=== PATIENT | female | born 1965 | race Caucasian/White ===

== ENCOUNTER → 2018-03-28 01:59 | Outpatient (CLI) | payer OTHER, SELFPAY ==
--- NOTE | 2018-03-28 11:32 | DI.REPORT_ITS ---
SYMPTOM/DIAGNOSIS: LLQ ABD PAIN, ? CONSTIPATION, ASSESS AMOUNT OF STOOL IN COLON ABDOMEN: Two views were obtained. No gross free intraperitoneal air is seen on these supine films. Right hip prosthesis noted in position. Bowel gas pattern is within normal limits. There is a moderate amount of fecal material in ascending colon, little stool in descending or sigmoid colon. CONCLUSION: Negative examination of the abdomen.
== END ==
PROVIDERS: PCP Family Medicine; Visit Provider Family Medicine
DX: R10.32 Left lower quadrant pain (principal); K59.00 Constipation, unspecified
CPT/HCPCS: 74018

== ENCOUNTER 2018-04-09 11:32 | Outpatient (CLI) | payer OTHER, SELFPAY ==
--- NOTE | 2018-04-09 15:59 | DI.RAD_ITS ---
SYMPTOM/DIAGNOSIS: FOOT PAIN, M79.671 RIGHT FOOT: Hardware is seen in the malleoli. There are degenerative changes of the talonavicular joint which are severe. No significant degenerative changes are seen in the foot. There is no evidence of fracture or signs of a stress fracture. IMPRESSION: Degenerative changes of the ankle. No acute abnormality is seen in the foot.
== END 2018-04-09 11:52 ==
PROVIDERS: PCP Family Medicine; Visit Provider Family Medicine
DX: M79.671 Pain in right foot (principal); M19.071 Primary osteoarthritis, right ankle and foot
CPT/HCPCS: 73630

== ENCOUNTER 2018-04-09 18:14 | Outpatient (REF) | payer OTHER, SELFPAY ==
[2018-04-09 20:39] LABS: Uric Acid 2.7 mg/dL (2.6-6.0)
[2018-04-09 20:59] LABS: ESR 17 MM/HR (0-30)
== END 2018-04-09 18:34 ==
LOC: NCHCN 18:14
PROVIDERS: PCP Family Medicine; Visit Provider Family Medicine
DX: M79.671 Pain in right foot (principal)
CPT/HCPCS: 85652; 84550

== ENCOUNTER 2018-05-13 11:34 | Outpatient (CLI) | payer OTHER, SELFPAY ==
--- NOTE | 2018-05-13 08:19 | DI.RAD_ITS ---
SYMPTOMS/DIAGNOSIS: PAIN IN RIGHT FOOT, M79.671 RIGHT FOOT: Four views. There is a healing nondisplaced fracture involving the proximal metaphysis of the right 2nd metatarsal. No other acute fractures or dislocations are seen. Side plate and screws are seen in the distal tibia and fibula from old injury. There are moderately severe degenerative changes noted of the right ankle. No radiopaque foreign bodies are seen in the soft tissues. IMPRESSION: Healing fracture involving the proximal metaphysis of the right 2nd metatarsal.
== END 2018-05-13 11:54 ==
PROVIDERS: PCP Family Medicine; Visit Provider Podiatrist Foot & Ankle Surgery
DX: M79.671 Pain in right foot (principal); S92.324D Nondisplaced fracture of second metatarsal bone, right foot, subsequent encounter for fracture with routine healing; M19.071 Primary osteoarthritis, right ankle and foot
CPT/HCPCS: 73630

== ENCOUNTER 2018-06-23 16:35 | Outpatient (REF) | payer OTHER, SELFPAY ==
[2018-06-23 19:59] LABS: COMMENT (LAB VIEW ONLY) 129.64 mg/dL; Microalb ug/mg Crea 1.9 ug/mg Cr
== END 2018-06-23 16:55 ==
LOC: NCHCN 16:35
PROVIDERS: PCP Family Medicine; Visit Provider Family Medicine
DX: I10 Essential (primary) hypertension (principal); E11.9 Type 2 diabetes mellitus without complications; Z79.4 Long term (current) use of insulin
CPT/HCPCS: 82043; 82570

== ENCOUNTER 2018-09-16 09:39 | Outpatient (REF) | payer OTHER, SELFPAY ==
[2018-09-16 12:28] LABS: HGB 12.7 g/dL (12.0-15.5); Mean Corp. HGB Concentration 32.6 g/dL (32.0-36.0); Mean Corpuscular Hemoglobin 29.4 pg (27.0-33.0); Mean Corpuscular Volume 90.3 fL (80-95); Mean Platelet Volume 10.6 fL (8.0-11.0); Platelet Count 183 x1000/uL (130-400); RBC 4.32 m/cumm (4.00-5.20); RBC Distribution Width 12.7 % (11.7-14.6); White Blood Cell Count 4.63 k/cumm (4.4-10.8)
[2018-09-16 12:43] LABS: Anion Gap 8.1 mmol/L (3-11); BUN 14 mg/dL (7-18); CO2 28.9 mmol/L (21.0-32.0); CREATININE 0.89 mg/dL (0.55-1.02); Calcium 9.2 mg/dL (8.5-10.1); Chloride 104 mmol/L (98-107); Glucose 180 mg/dL (70-100); Potassium 4.1 mmol/L (3.5-5.1); Sodium 141 mmol/L (136-145)
[2018-09-16 12:47] LABS: Hemoglobin A1C 7.8 % (4.5-6.2)
== END 2018-09-16 09:59 ==
LOC: NCHCN 09:39
PROVIDERS: PCP Family Medicine; Visit Provider Family Medicine
DX: I10 Essential (primary) hypertension (principal); E11.9 Type 2 diabetes mellitus without complications; Z79.4 Long term (current) use of insulin
CPT/HCPCS: 80048; 85027; 83036

== ENCOUNTER 2018-10-09 00:30 | Outpatient (CLI) | payer OTHER, SELFPAY ==
--- NOTE | 2018-10-09 16:15 | DI.MAMMO_ITS ---
SYMPTOM/DIAGNOSIS: SCREENING, Z12.31 MAMMOGRAMS: Mammograms were interpreted according to the usual protocol including computer analysis with CAD system, tomosynthesis and C view imaging. Comparison with prior examinations. Breast density C. No suspicious masses or microcalcifications are seen. There is no definite evidence of malignancy. IMPRESSION: Negative mammogram. Routine screening is recommended. Category I. MQSA ASSESSMENT OF FINDINGS: Negative. Category 1. Patient will receive a letter notifying them of these results. Bi-RADS category C. The breasts are heterogeneously dense, which may obscure small masses.
== END 2018-10-09 00:50 ==
PROVIDERS: PCP Family Medicine; Visit Provider Nurse Practitioner Family
DX: Z12.31 Encounter for screening mammogram for malignant neoplasm of breast (principal)
CPT/HCPCS: 77063; 77067

== ENCOUNTER 2019-06-22 14:30 | Outpatient (CLI) | payer OTHER, SELFPAY ==
--- NOTE | 2019-06-22 14:22 | DI.RAD_ITS ---
EXAM: XR HAND RT COMPLETE INDICATION: R hand pain. COMPARISON: No exams were available for comparison TECHNIQUE: 2D digital imaging was performed. FINDINGS: No fracture or dislocation is seen. There are no significant degenerative changes. There are no bon y erosions. IMPRESSION: Negative right hand.
--- NOTE | 2019-06-22 14:22 | DI.RAD_ITS ---
EXAM: XR HAND LT COMPLETE INDICATION: l hand pain. COMPARISON: XR HAND RT COMPLETE from 06/22/2019 TECHNIQUE: 2D digital imaging was performed. FINDINGS: The bones are normally mineralized. There are no significant degenerative changes. No bony erosions are seen. IMPRESSION: Negative left hand.
--- NOTE | 2019-06-22 14:22 | DI.RAD_ITS ---
EXAM: XR ANKLE LT 2V INDICATION: eval L ankle pain. COMPARISON: XR ANKLE RT 2V from 06/22/2019 TECHNIQUE: 2D digital imaging was performed. FINDINGS: The ankle joint space is well maintained. No talar dome defect or significant degenerative changes a re seen. IMPRESSION: Negative left ankle.
--- NOTE | 2019-06-22 14:22 | DI.RAD_ITS ---
EXAM: XR ANKLE RT 2V INDICATION: eval R ankle pain. COMPARISON: RIGHT ANKLE COMPLETE from 01/26/2010 TECHNIQUE: 2D digital imaging was performed. FINDINGS: Hardware is seen in both malleoli. Hardware appears unchanged. There is severe narrowing of the tib iotalar and fibular talar joint spaces. There are subchondral cysts and sclerosis on both sides of th e joint. No focal talar dome defects are seen. IMPRESSION: Severe degenerative changes of the ankle joint.
== END 2019-06-22 14:50 ==
PROVIDERS: PCP Family Medicine; Visit Provider Student in an Organized Health Care Education/Training Program
DX: M79.641 Pain in right hand (principal); M79.642 Pain in left hand; M25.571 Pain in right ankle and joints of right foot; M25.572 Pain in left ankle and joints of left foot; M19.071 Primary osteoarthritis, right ankle and foot
CPT/HCPCS: 73130; 73600

== ENCOUNTER 2019-06-22 15:02 | Outpatient (CLI) | payer OTHER, SELFPAY ==
[2019-06-22 16:28] LABS: ESR 13 mm/hr (0-30)
[2019-06-23 12:39] LABS: Rheumatoid Factor <7.5 IU/mL (<12.5)
[2019-06-23 14:34] LABS: ANA Interpretation Negative (Negative)
== END 2019-06-22 15:22 ==
PROVIDERS: PCP Family Medicine; Visit Provider Student in an Organized Health Care Education/Training Program
DX: M79.641 Pain in right hand (principal); M79.642 Pain in left hand; M25.572 Pain in left ankle and joints of left foot; M19.071 Primary osteoarthritis, right ankle and foot
CPT/HCPCS: 36415; 85652; 86038; 86140; 86431

== ENCOUNTER 2019-07-31 11:39 | Outpatient (REF) | payer OTHER, SELFPAY ==
[2019-08-03 12:02] LABS: COMMENT (LAB VIEW ONLY) 61.61 mg/dL; Microalb ug/mg Crea 4.9 ug/mg Cr
== END 2019-07-31 11:59 ==
LOC: NCHCN 11:39
PROVIDERS: PCP Family Medicine; Visit Provider Family Medicine
DX: E11.9 Type 2 diabetes mellitus without complications (principal); Z79.4 Long term (current) use of insulin
CPT/HCPCS: 82043; 82570

== ENCOUNTER 2019-08-10 09:48 | Outpatient (CLI) | payer OTHER, SELFPAY ==
--- NOTE | 2019-08-10 10:00 | DIABASSESS_ITS ---
DESCRIPTION/ASSESSMENT: Chandrika Casanova presents for diabetes self management with 10 days of blood sugars taken at various times. She states she has blood sugars that are all over the place. Chandrika states she guesses how much Novolog to take at each meal with the idea of 1 unit for 12 grams carbohydrate and the same for insulin correction. Takes 46- 50 units Levemir depending on blood sugar. Takes 12-30 units Novolog per meal. Blood sugars are primarily over 215 or under 115 with 4 hypoglycemic episodes out of 16 bloods sugars. States she does have symptoms of hypoglycemia close to 70mg/dl. She gaspar a high carb breakfast of oatmeal, berries, 2 toast with butter. She may have flatbread with meat salad for lunch, yogurt or lean cuisine or mac and cheese. She has pizza or spaghetting with meat for supper. Snacks on crackers between meals; has an apple in the evening. INTERVENTION: Chandrika is here to look at her insulin dosing and to prevent hypoglycemia. MEDICATION: Discussed changing basal insulin and suggested that high blood sugars are better managed with fast acting insulin with a short lifespan. Assessed insulin:carb ratio at 1 unit covers 5grams and 1 unit corrects 20mg/dl above 140mg/dl. She is given this scale on her food guide. SHe voices understanding and is able to return demonstration for calculating her insulin dose for a meal. Reviewed carbohydrate sources, portions to aid in counting carbohydrate grams for dosing mealtime insulin. MONITORING: Suggest monitoring before each meal and bedtime for the next week; record food eaten and insulin dose given. ACTION PLAN: Chandrika will dose insulin at 1 unit for 5 grams; 1 unit corrects 20mg/dl above 140 mg/dl of Novolog She will take the same amount of Levemir every night She will call if this is not working well for her and will return in 1 week to review her blood sugars and adjust as needed. Individual DSME/T _1___ units billed TIME IN: 1000 OUT: 1040 No DM group education series being offered at this time.
== END 2019-08-10 10:08 ==
PROVIDERS: PCP Family Medicine; Visit Provider Dietitian, Registered
DX: E11.9 Type 2 diabetes mellitus without complications (principal); Z79.4 Long term (current) use of insulin; Z71.3 Dietary counseling and surveillance
CPT/HCPCS: G0108

== ENCOUNTER 2019-08-17 03:04 | Outpatient (CLI) | payer OTHER, SELFPAY ==
--- NOTE | 2019-08-17 08:30 | DIABASSESS_ITS ---
DESCRIPTION/ASSESSMENT: Chandrika presents for follow up for diabetes self management focused on insulin management. Chandrika had been varying Lantus and did continue this although it was suggested she use one night insuli dose. She was guessing how much Novolog to take. She came in attempting to calculate 1 unit to cover 5 grams carbohydrate and 1 unit to cover 20mg/dl above 140mg/dl. She was able to calculate this easily. She has recorded her food, blood sugar and insulin dose for each meal. Fasting blood sugar 76, 129, 167, 202, 207, 272, 291. Lunch blood sugars 79, 109, 139, 148 218. Supper blood sugars 45, 84, 95, 127, 270, 358. She did not take insulin at 79mg/dl resulting in a 358 by supper. She notices 1T honey in tea caused significant increase 76 to 218 with same breakfast previous day 129-79. Hypoglycemia occurred on afternoon she did not test blood sugar prior to administering 21u for lunch. She does eat out frequently and does not count carbohydrates for those meals. INTERVENTION: Reviewed blood sugars iwth her. It appears she is highly sensitive to carbohydrate, however the insulin dosing, when counting carbohydrates accurately and testing blood sugars prior to meals is working reasonably well. At this point she will take 50units lantus nightly and we will continue to watch blood sugars for patterns. ACTION PLAN: Take 50u Lantus every night; continue current mealtime insulin dosing. 25 minutes face to face 0 dsme billed. Individual DSME/T __0__ units billed TIME IN: 850 OUT: 915 No DM group education series being offered at this time. 08/19/19 TC to Chandrika this morning. Blood sugars 106-275. 242 last night before bed. Admits to having cookies iwthout taking insulin. She reports a cold for which she is taking antibiotics. Suggest correcting hyperglycemia at bedtime with insulin correction starting at 200mg/dl as it is likely eating more tthan expected for the insulin administered for the meal. She will call with any hypoglycemic episodes. We will be in touch in 1 week after antibiotic administration.
== END 2019-08-17 03:24 ==
PROVIDERS: PCP Family Medicine; Visit Provider Dietitian, Registered
DX: E11.9 Type 2 diabetes mellitus without complications (principal); Z79.4 Long term (current) use of insulin; Z71.3 Dietary counseling and surveillance

== ENCOUNTER 2019-10-13 08:04 | Outpatient (REF) | payer OTHER, SELFPAY ==
[2019-10-13 12:32] LABS: Hemoglobin A1C 7.3 % (3.8-5.6)
[2019-10-13 12:35] LABS: Anion Gap 7.4 mmol/L (3-11); BUN 21 mg/dL (7-18); CO2 28.6 mmol/L (21.0-32.0); Calcium 8.6 mg/dL (8.5-10.1); Calculated LDL 64 mg/dL (<100); Chloride 104 mmol/L (98-107); Cholesterol 122 mg/dL (<200); Glucose 190 mg/dL (74-106); HDL Cholesterol 51 mg/dL (40-60); Potassium 3.9 mmol/L (3.5-5.1); Sodium 140 mmol/L (136-145); Triglyceride 37 mg/dL (<150)
[2019-10-13 12:36] LABS: HCT 38.5 % (36.0-46.0); HGB 12.7 g/dL (12.0-15.5); Mean Corpuscular Hemoglobin 29.1 pg (27.0-33.0); Mean Corpuscular Volume 88.1 fL (80-95); Mean Platelet Volume 10.7 fL (8.0-11.0); Platelet Count 189 x1000/uL (130-400); RBC 4.37 m/cumm (4.00-5.20); RBC Distribution Width 12.8 % (11.7-14.6); White Blood Cell Count 4.21 k/cumm (4.4-10.8)
== END 2019-10-13 08:24 ==
LOC: NCHCN 08:04
PROVIDERS: PCP Family Medicine; Visit Provider Family Medicine
DX: E11.9 Type 2 diabetes mellitus without complications (principal); Z79.4 Long term (current) use of insulin; E78.5 Hyperlipidemia, unspecified; I10 Essential (primary) hypertension
CPT/HCPCS: 80048; 80061; 85027; 83036

== ENCOUNTER 2019-12-21 01:11 | Outpatient (CLI) | payer OTHER, SELFPAY ==
--- NOTE | 2019-12-21 16:00 | DI.MAMMO_ITS ---
EXAM: MG MAMMO SCREENING CLINICAL HISTORY: screening,Z12.39 TECHNIQUE: Bilateral full field digital CC and MLO mammographic images were obtained with 3D tomosyn thesis and utilizing computer aided detection (CAD). COMPARISON: Available for comparison. FINDINGS: Masses/Architectural Distortion: None seen. Microcalcifications: No suspicious pleomorphic-type are seen. Skin Thickening/Nipple Retraction: None. IMPRESSION: 1. No significant interval change with no specific features of malignancy noted. 2. Unless there is more urgent need, screening mammography is recommended, as per [employer] guidelines. BI-RADS Category 1 - Negative Breast Density - Category C - Heterogeneously dense The mammogram demonstrates the patient's breast tissue is dense. Dense breast tissue is very common a nd is not abnormal but dense breast tissue can make it harder to find cancer on a mammogram. Also, de nse breast tissue may increase their breast cancer risk. This information about the result of the [facility] mogram report was provided to the patient to raise their awareness. Use this report when you speak wi th the patient about their risks for breast cancer, which includes their family history. At that time , you may recommend for more screening tests (Ultrasound or MRI) as they might be useful based on the ir risk. A negative radiographic report should not delay biopsy if a dominant or clinically suspicious mass is present. Up to ten percent of cancers are not identified on mammography. A negative report may reinforce clinical impression. Adenosis and dense breasts may obscure an underlying neoplasm. False positive reports average 6 to 10%. Patient will receive a letter notifying them of these results.
== END 2019-12-21 01:31 ==
PROVIDERS: PCP Family Medicine; Visit Provider Nurse Practitioner Family
DX: Z12.31 Encounter for screening mammogram for malignant neoplasm of breast (principal)
CPT/HCPCS: 77063; 77067

== ENCOUNTER 2020-02-16 10:25 | Outpatient (CLI) | payer OTHER, SELFPAY ==
--- NOTE | 2020-02-16 06:00 | DI.RAD_ITS ---
EXAM: XR PAIN CLINIC SACRIOILIAC 2V CLINICAL HISTORY: Sacroiliac Joint Dysfunction TECHNIQUE: 2D and realtime digital imaging was performed. Fluoroscopy was provided in the OR COMPARISON: No exams were available for comparison FINDINGS: C-arm fluoroscopy was utilized by Dr. Potter during bilateral SI joint injection. Hard copies show bilate ral SI joint injection. Fluoro time 27.5 seconds. IMPRESSION: RADIATION DOSE DELIVERED: Total DLP
[2020-02-16 10:32] VITALS: BP 133/81; PULSE 87; RESP 18; TEMP 35.9; O2SAT 97
[2020-02-16 11:21] VITALS: BP 126/77; PULSE 91; O2SAT 99
[2020-02-16] MEDS: methylPREDNISolone ACETATE 80 MG/ML VIAL IJ (11:28)
[2020-02-16] MEDS: Omnipaque 240 MG/ML 50 ML BTL IJ (11:29)
[2020-02-16] MEDS: Bupivacaine 0.5% Pres-Free 10 ML VIAL IJ (11:30)
--- NOTE | 2020-03-15 09:46 | PDOC.PAIN_ITS ---
Pain Clinic Procedure Note Procedure Note Procedure Note: INTRA-ARTICULAR SI JOINT INJECTION Date of procedure 02/16/2020 CHAYITO MERAZ has been referred to the [facility] for intra- articular SI joint injection. COMMENTS: disorder of sacrum Patient was interviewed and the medical record reviewed. There were no medical, pharmacologic, radiographic or other structural contraindications to attempting fluoroscopically guided intra-articular SI joint injection. Risks and expected side effects as well as potential benefit of the procedure were reviewed and voiced concerns addressed. The printed consent form was signed and witnessed. Standard time-out procedure was performed. Patient was placed in the prone position on the fluoroscopy table and automated blood pressure cuff and pulse oximeter applied. The skin entry point for approaching bilateral SI joints was identified under the most advantageous fluoroscopic view and marked. Following thorough Chlorhexadine preparation of the skin and draping and 1% lidocaine infiltration of the skin entry point and subcutaneous tissues, a 22 gauge spinal needle was placed under fluoroscopic guidance into bilateral SI joints was identified under the most advantageous fluoroscopic view and marked. Following thorough Chlorhexadine preparation of the skin and draping and 1% lidocaine infiltration of the skin entry point and subcutaneous tissues, a 22 gauge spinal needle was placed under fluoroscopic guidance into bilateral SI joint. Intra-articular placement was confirmed by a clear arthrogram resulting from the injection of 0.25ml Omnipaque 240, 1ml 1% lidocaine, and 40mg Depomedrol were injected intra-articularily with an initial reproduction of a significant component of the usual pain. Vital signs were stable throughout the procedure and were as recorded in the docflowsheet by the nursing staff. If given, dosages of intravenous drugs for anxiolysis and analgesia were documented in MAR. Follow up plans and appointments were discussed with the patient. Post procedure instruction was given as documented in nursing documentation and having met discharge criteria, and was discharged from the [facility]. Beatriz Marie MD Pain Management CC: Genie Abdullahi
== END 2020-02-16 10:45 ==
PROVIDERS: PCP Family Medicine; Visit Provider Internal Medicine
DX: M53.3 Sacrococcygeal disorders, not elsewhere classified (principal)
CPT/HCPCS: 27096; 72200; J1040; Q9967

== ENCOUNTER 2020-04-01 10:15 | Outpatient (REF) | payer OTHER, SELFPAY ==
[2020-04-01 18:53] LABS: COMMENT (LAB VIEW ONLY) 29.12 mg/dL
[2020-04-01 19:02] LABS: Microalb ug/mg Crea 7.6 ug/mg Cr
== END 2020-04-01 10:35 ==
LOC: NCHCN 10:15
PROVIDERS: PCP Family Medicine; Visit Provider Family Medicine
DX: E11.9 Type 2 diabetes mellitus without complications (principal); Z79.4 Long term (current) use of insulin
CPT/HCPCS: 82043; 82570

== ENCOUNTER 2020-05-24 11:57 | Outpatient (CLI) | payer OTHER, SELFPAY ==
--- NOTE | 2020-05-24 10:45 | DI.RAD_ITS ---
EXAM: XR HIP RT COMPLETE AP PELVIS INDICATION: pain. COMPARISON: US PELVIS TRANSVAG from 01/06/2018 XR PAIN CLINIC SACRIOILIAC 2V from 02/16/2020 TECHNIQUE: 2D digital imaging was performed. FINDINGS: There is a right total hip prosthesis. There are no surrounding abnormal lucencies. There is some h eterotopic ossifications seen near the greater trochanter. The left hip shows minimal acetabular spu rring. There is mild spurring of at the inferior SI joints. IMPRESSION: Unremarkable total right hip prosthesis. DATA REPOSITORY: RADIATION DOSE DELIVERED:
== END 2020-05-24 12:17 ==
PROVIDERS: PCP Family Medicine; Referring Provider Family Medicine; Visit Provider Orthopaedic Surgery
DX: Z96.641 Presence of right artificial hip joint (principal); M25.551 Pain in right hip
CPT/HCPCS: 73502

== ENCOUNTER 2020-07-15 04:58 | Outpatient (CLI) | payer OTHER, SELFPAY ==
[2020-07-15 09:20] LABS: ESR 14 mm/hr (0-30)
[2020-07-15 09:35] LABS: C-Reactive Protein 0.23 mg/dL (0.0-0.3)
[2020-07-19 00:36] LABS: Chromium, Serum 2.4 ng/mL (<0.3)
[2020-07-19 00:38] LABS: Cobalt, S 4.6 ng/mL
== END 2020-07-15 05:18 ==
PROVIDERS: PCP Family Medicine; Visit Provider Orthopaedic Surgery
DX: M25.551 Pain in right hip (principal)
CPT/HCPCS: 36415; 85652; 82495; 83789; 86140

== ENCOUNTER 2020-07-25 01:17 | Outpatient (CLI) | payer OTHER, SELFPAY ==
--- NOTE | 2020-07-25 08:00 | DI.MRI_ITS ---
EXAM: MR LOWER JOINT RT WO CLINICAL HISTORY: RT HIP PAIN,TROCHANTERIC BURSITIS,M70.61,M25.551. TECHNIQUE: Multiplanar multisequence MRI was performed. COMPARISON: CR XR HIP RT COMPLETE AP PELVIS from 05/24/2020 FINDINGS: BONES: There is no fracture or contusion pattern. JOINTS: The patient has a right total hip replacement causing artifact. No effusion is present. TENDONS: There is mild hyperintense signal around the right gluteus medius tendon. Mild hyperintense signal is seen in the gluteus medius muscle. Tendon does appear to be intact. MUSCLES: Moderate fatty atrophy is seen at the right adductor longus, gluteus medius and gluteus mini mus muscles. SOFT TISSUES: Unremarkable. OTHER: IMPRESSION: 1. Postsurgical changes of a right total hip arthroplasty. This does limit the examination due to ar tifact. 2. Mild hyperintense signal seen in the right gluteus medius muscle with hyperintense signal around t he right gluteus medius tendon. This may represent gluteus medius muscle strains/mild trochanteric b ursitis. 3. Moderate atrophy of the right adductor longus, gluteus medius and gluteus minimus muscles. DATA REPOSITORY:
== END 2020-07-25 01:37 ==
PROVIDERS: PCP Family Medicine; Visit Provider Orthopaedic Surgery
DX: M25.551 Pain in right hip (principal); Z96.641 Presence of right artificial hip joint; M62.89 Other specified disorders of muscle; M62.58 Muscle wasting and atrophy, not elsewhere classified, other site; M70.61 Trochanteric bursitis, right hip
CPT/HCPCS: 73721

== ENCOUNTER 2020-08-04 03:07 | Outpatient (CLI) | payer OTHER, SELFPAY ==
[2020-08-04 10:57] LABS: HCT 38.8 % (36.0-46.0); HGB 12.8 g/dL (11.2-15.7); MCH 29.6 pg (27.0-33.0); MCV 89.6 fL (80-95); MPV 9.5 fL (8.0-11.0); Platelet Count 178 10^3/uL (130-400); RBC 4.33 10^6/uL (3.93-5.22); RDW 12.3 % (11.7-14.6); RDW-SD 40.1 fL; WBC 4.29 10^3/uL (4.4-10.8)
[2020-08-04 11:30] LABS: Anion Gap 8.6 mmol/L (3-11); BUN 19 mg/dL (7-18); CO2 27.4 mmol/L (21.0-32.0); CREATININE 0.91 mg/dL (0.55-1.02); Chloride 104 mmol/L (98-107); Glucose 147 mg/dL (74-106); Potassium 4.1 mmol/L (3.5-5.1); Sodium 140 mmol/L (136-145)
[2020-08-06 15:56] LABS: COVID-19 RT-PCR UVMMC Result Negative (Negative)
== END 2020-08-04 03:27 ==
PROVIDERS: PCP Family Medicine; Visit Provider Student in an Organized Health Care Education/Training Program
DX: M25.551 Pain in right hip (principal); Z96.641 Presence of right artificial hip joint; T84.84XA Pain due to internal orthopedic prosthetic devices, implants and grafts, initial encounter; Z11.59 Encounter for screening for other viral diseases; Z01.818 Encounter for other preprocedural examination; Z01.812 Encounter for preprocedural laboratory examination
CPT/HCPCS: 36415; 80048; 85027; 86850; 86900; 86901; U0003

== ENCOUNTER 2020-08-10 08:54 | Inpatient (IN) | payer OTHER, SELFPAY ==
[2020-08-10] VITALS (7 sets, daily range): BP systolic 126–158; BP diastolic 74–90; PULSE 74–99; RESP 12–20; TEMP 35.7–36.4; O2SAT 95–98
--- NOTE | 2020-08-10 08:58 | PDOC.DSDIS_ITS ---
Documented by User: GUZMAN Foote 08/10/20 09:13 Discharge Plan Disposition Patient Disposition: HOME Condition: Good Discharge Details Reason For Visit: Right MAUREEN Revision Attending Provider: Amilcar Roman Primary Care Provider: Genie Abdullahi Home Meds and New Rx's Prescriptions: New aspirin 81 mg tablet,delayed release (DR/EC) 81 mg PO BID Qty: 60 RF: 0 celecoxib [Celebrex] 200 mg capsule 200 mg PO BID Qty: 60 RF: 0 acetaminophen [Tylenol Extra Strength] 500 mg tablet 500 mg PO Q6H PRNQty: 90 RF: 0 oxycodone 5 mg tablet 5 mg PO Q4H PRNQty: 18 RF: 0 docusate sodium [Colace] 100 mg capsule 100 mg PO BID PRNQty: 10 RF: 0 Continued insulin lispro [Humalog U-100 Insulin] 100 unit/mL solution 1 sliding scale dose subcut USEASDIRECTD RF: 0 prednisone 5 mg tablet 5 mg PO DAILY Qty: 30 RF: 1 Levemir FlexTouch U-100 Insuln 100 UNIT/1 ML insulin pen 50 units SQ HS RF: 0 ascorbic acid (vitamin C) [Vitamin C With Risa Hips] 1,000 MG tablet 1,000 mg PO DAILY RF: 0 cyanocobalamin (vitamin B-12) [Vitamin B-12] 1,000 MCG tablet 1,000 mcg PO DAILY RF: 0 lisinopril 5 MG tablet 5 mg PO DAILY RF: 0 Ca-D3-mag ed-wrhd-zmo-davey-bor 1 EACH tablet,chewable 1 ea PO DAILY RF: 0 Estring 1 EACH ring 1 ea VG 90 days Qty: 1 RF: 4 tramadol 50 mg tablet 50 mg PO Q8H PRN (Reason: pain) Qty: 15 RF: 0 omeprazole 20 MG capsule,delayed release(DR/EC) 20 mg PO DAILY RF: 0 Excedrin Migraine 1 EACH tablet 1 ea PO PRN PRNRF: 0 rosuvastatin [Crestor] 20 MG tablet 20 mg PO QPM RF: 0 Discontinued indomethacin 50 mg capsule 50 mg PO BID RF: 0 celecoxib [Celebrex] 200 MG capsule 200 mg PO DAILY RF: 0 ibuprofen 200 MG capsule 200 mg PO PRN PRNRF: 0 No Action celecoxib [Celebrex] 200 mg Capsule 200 mg PO BID RF: 0 Discharge Instructions Additional Instructions: Total Hip Discharge Instructions Activity: The most important activity is to walk. You should try to take short walks a few times a day. You have no restrictions on movement or positioning, but do not try to force what you do. You will find some stiffness and weakness with hip flexion (lifting your knee). Do not try to strengthen this too early, continue to practice walking and stairs and this will come. - Outpatient physical therapy can be helpful to help return you to a normal gait and improve your flexibility and strength. This can start around 2 weeks. For some patients, it?s not necessary. Usually this is determined at the time of discharge or at the first post-operative visit. - You should wear the MIS hose on both legs for 2 weeks. Dressing: Keep the surgical dressing in place for at least one week. After the first week it may be removed and replace with light gauze and tape or nothing. It may get wet after 3 days but avoid soaking the dressing. If it gets wet, just lightly pat dry. It is important to always keep some gauze between skin folds, especially when you are sitting. Spend some time with the wound exposed when you are lying flat as the incision does wrinkle onto itself. Medications: - You should take Tylenol and an anti-inflammatory Celebrex as your primary pain control medications. If the Celebrex is too expensive or not covered, please call the office for another alternative (Advil/Ibuprofen or Naproxen/Aleve). - You have been prescribed a stronger pain medication Oxycodone for breakthrough pain, take as needed as prescribed. - You will continue your stomach acid reduction agent Omeprazole to help reduce stomach acid and reflux. - You will be taking Aspirin 81mg twice a day for DVT prevention unless instructed otherwise. - If you have constipation you should take Colace or Miralax (both over-the- counter). It takes most people 3-4 days to have a bowel movement. Follow-up: 2 weeks If you have any acute concerns or questions, please do not hesitate to contact the office at [phone]. You may contact Dr. Roman with any questions after hours through the hospital at [phone] or on his cell phone at [phone]. Referrals: Amilcar Roman MD [ [facility] STAFF PHYSICIAN] - Equipment/Supplies: Walker Activity:: Activity as Tolerated Remove Dressings/Wound Care:: Do Not Remove Shower/Bathe:: 72 hours Diet:: As Tolerated Discharge Orders Discharge Orders: Discharge Order (Routine); Ordered 08/10/20 Ordered By: Bobbi Pérez DS: Diagnosis Discharge Diagnosis (1) Pain due to total hip replacement: Status: Acute Documented by User: Amilcar Roman MD 08/10/20 14:35 Discharge Plan Disposition Patient Disposition: HOME Condition: Good Discharge Details Reason For Visit: Right MAUREEN Revision Attending Provider: Amilcar Roman Primary Care Provider: Genie Abdullahi Home Meds and New Rx's Prescriptions: New aspirin 81 mg tablet,delayed release (DR/EC) 81 mg PO BID Qty: 60 RF: 0 celecoxib [Celebrex] 200 mg capsule 200 mg PO BID Qty: 60 RF: 0 acetaminophen [Tylenol Extra Strength] 500 mg tablet 500 mg PO Q6H PRNQty: 90 RF: 0 oxycodone 5 mg tablet 5 mg PO Q4H PRNQty: 18 RF: 0 docusate sodium [Colace] 100 mg capsule 100 mg PO BID PRNQty: 10 RF: 0 Continued insulin lispro [Humalog U-100 Insulin] 100 unit/mL solution 1 sliding scale dose subcut USEASDIRECTD RF: 0 prednisone 5 mg tablet 5 mg PO DAILY Qty: 30 RF: 1 Levemir FlexTouch U-100 Insuln 100 UNIT/1 ML insulin pen 50 units SQ HS RF: 0 ascorbic acid (vitamin C) [Vitamin C With Risa Hips] 1,000 MG tablet 1,000 mg PO DAILY RF: 0 cyanocobalamin (vitamin B-12) [Vitamin B-12] 1,000 MCG tablet 1,000 mcg PO DAILY RF: 0 lisinopril 5 MG tablet 5 mg PO DAILY RF: 0 Ca-D3-mag nf-tnbd-pej-davey-bor 1 EACH tablet,chewable 1 ea PO DAILY RF: 0 Estring 1 EACH ring 1 ea VG 90 days Qty: 1 RF: 4 tramadol 50 mg tablet 50 mg PO Q8H PRN (Reason: pain) Qty: 15 RF: 0 omeprazole 20 MG capsule,delayed release(DR/EC) 20 mg PO DAILY RF: 0 Excedrin Migraine 1 EACH tablet 1 ea PO PRN PRNRF: 0 rosuvastatin [Crestor] 20 MG tablet 20 mg PO QPM RF: 0 Discontinued indomethacin 50 mg capsule 50 mg PO BID RF: 0 celecoxib [Celebrex] 200 MG capsule 200 mg PO DAILY RF: 0 ibuprofen 200 MG capsule 200 mg PO PRN PRNRF: 0 No Action celecoxib [Celebrex] 200 mg Capsule 200 mg PO BID RF: 0 Discharge Instructions Additional Instructions: Total Hip Discharge Instructions Activity: The most important activity is to walk. You should try to take short walks a few times a day. You have no restrictions on movement or positioning, but do not try to force what you do. You will find some stiffness and weakness with hip flexion (lifting your knee). Do not try to strengthen this too early, continue to practice walking and stairs and this will come. - Outpatient physical therapy can be helpful to help return you to a normal gait and improve your flexibility and strength. This can start around 2 weeks. For some patients, it?s not necessary. Usually this is determined at the time of discharge or at the first post-operative visit. - You should wear the MIS hose on both legs for 2 weeks. Dressing: Keep the surgical dressing in place for at least one week. After the first week it may be removed and replace with light gauze and tape or nothing. It may get wet after 3 days but avoid soaking the dressing. If it gets wet, just lightly pat dry. It is important to always keep some gauze between skin folds, especially when you are sitting. Spend some time with the wound exposed when you are lying flat as the incision does wrinkle onto itself. Medications: - You should take Tylenol and an anti-inflammatory Celebrex as your primary pain control medications. If the Celebrex is too expensive or not covered, please call the office for another alternative (Advil/Ibuprofen or Naproxen/Aleve). - You have been prescribed a stronger pain medication Oxycodone for breakthrough pain, take as needed as prescribed. - You will continue your stomach acid reduction agent Omeprazole to help reduce stomach acid and reflux. - You will be taking Aspirin 81mg twice a day for DVT prevention unless instructed otherwise. - If you have constipation you should take Colace or Miralax (both [id number]). It takes most people 3-4 days to have a bowel movement. Follow-up: 2 weeks If you have any acute concerns or questions, please do not hesitate to contact the office at [phone]. You may contact Dr. Roman with any questions after hours through the hospital at [phone] or on his cell phone at [phone]. Referrals: Amilcar Roman MD [ [facility] STAFF PHYSICIAN] - Equipment/Supplies: Walker Activity:: Activity as Tolerated Remove Dressings/Wound Care:: Do Not Remove Shower/Bathe:: 72 hours Diet:: As Tolerated Discharge Orders Discharge Orders: Discharge Order (Routine); Ordered 08/10/20 Ordered By: Bobbi Pérez
[2020-08-10] MEDS: Insulin REGULAR-Human 100 UNITS/ML UNIT 8 UNITS SC (11:58)
[2020-08-10] MEDS: Acetaminophen 500 MG TAB 1000 MG PO (14:18)
[2020-08-10] MEDS: Celecoxib 200 MG CAP 400 MG PO (14:19)
[2020-08-10] MEDS: Lactated Ringers 1,000 ML 30 ML IV (14:38)
[2020-08-10] MEDS: ceFAZolin 2 GM/50 ML BAG IVPB (14:41)
[2020-08-10] MEDS: Ketorolac 30 MG/ML VIAL (16:20)
[2020-08-10] MEDS: Bupivacaine 0.25% Pres-Free 30 ML VIAL (16:20)
--- NOTE | 2020-08-10 16:47 | W.PM.OP ---
Date of service: 08/10/20 Time of Service: 16:47 Operative Note Operative Note DATE OF PROCEDURE: 08/10/20 PRE-OP DIAGNOSIS: Painful Metal on Metal Right Hip Arthroplasty POST-OP DIAGNOSIS: same Heterotopic Ossification of Capsule PROCEDURE: Right Anterior Hip Revision of Head and Liner with Synovectomy SURGEON: Amilcar Roman VASCULAR ULTRASOUND TECHNICIAN: Bobbi Pérez ANESTHESIA: spinal ESTIMATED BLOOD LOSS: 200 PATHOLOGY: none sent COMPLICATIONS: None Patient was transported to: PACU Patient's condition: stable Implants: Depuy Acetabular Liner, 30q23ix Depuy Revision TS Altrx Ceramic Femoral Head, Size 36+8.5mm Indications: I have seen Chandrika in clinic for symptoms of a painful hip, confirmed with clinical exam and laboratory findings of an increased Drasco ion level. Chandrika has exhausted nonoperative methods and was having significant limitations in daily function and desired better function and less pain. I discussed the technical details of a hip replacement. I explained the risks of the procedure to include, but not limited to, bleeding, infection, pain, stiffness, fracture, damage to nerves and vessels, damage to muscles and tendons, loosening, instability, need for repeat procedure, blood clot and cardiopulmonary demise. Despite these risks, Chandrika elected to proceed. Findings: There was notable synovitis throughout the hip. There is no gross loosening of the components but there was metal debris seen on the trunnion underlying the metal head. The metal liner was able to be removed and a titanium lied ceramic head was placed with polyethylene acetabular component. Procedure Description: Chandrika was greeted in the preoperative holding area where the correct side was identified and marked. The consent was reviewed with the patient and signed. The history and physical was updated. All questions were answered. Chandrika was taken back to the operating room. A spinal anesthestic was then administered. The feet were wrapped with cast padding and Coban and then placed into the boots. Care was taken to protect the skin and make sure the heels were fully down and the boots were stable. The patient was then positioned onto the arch table. Both legs were held in a neutral position. SCDs were applied. The patient was then slid down onto a peroneal post. Prophylactic antibiotics in the form of cefazolin were administered. 1g of Tranxemic Acid was given intravenously within 30 minutes of incision. The right leg was then prepped with Chloraprep and draped in a standard fashion. A second prep with Chloraprep was performed prior to placement of a shower-curtain type drape with Iodine impregnated skin protection. A timeout to confirm correct identity, side and site, procedure, allergies, anesthesia, and medical concerns was performed. Chandrika had multiple incisions around the right hip. I used the proximal aspect of her anterior incision and then deviated on top of the tensor fascia isi muscle belly moving distally. This area was incised sharply. The deeper tissue unfortunately had very abnormal appearance. My suspicion is that her tensor fascia isi was elevated off of the hip when her femoral head fixation occurred. The tissue plane of the tensor fascia isi was very difficult to appreciate and therefore I use more of a Malhotra-Alfonso interval underneath the tensor fascia isi. This was easily dissectible with a finger and therefore I proceeded with this approach. There was notable scarring in this area and I did have to use a Cline elevator to elevate some these tissues off of the anterior joint capsule. Blunt dissection created space between abductors and the capsule and retractor was placed over the lateral femoral neck. A second cobra retractor was placed around the medial femoral neck. A T-capsulotomy was then performed starting at the superior lateral acetabulum and moving distally to the intertrochanteric ridge. These capsular flaps were tagged with a No. 1 Ethibond and elevated from within. These flaps are notably thick, at least 1 cm. There is also large pieces of bone embedded within the capsule. The inner aspect of the synovial lining was removed with a rongeur and with electrocautery. All areas of heterotopic ossification were also excised with a rongeur and electrocautery. There was notable synovitis seen as these capsular flaps were raised. The capsular flaps were released to the shoulder of the lateral neck and to the lesser trochanter to give excellent visualization of the proximal femur. There is notable scarring which was slowly released and teased off the proximal femur both with finger dissection and with electrocautery. An aggressive synovectomy was performed with electrocautery and with a rongeur. The entire rim of the acetabular component was evaluated and visualized. There is no sign of loosening. There is no sign of loosening of the femoral component. With some traction and external rotation and a bone hook around the femoral neck, I dislocated the femoral head. It was removed using a bone tamp and a mallet. The trunnion showed some signs of metal wear with a thick ring of black material seen at the base of the head. This was removed with a lap pad as well as the Bovie scratch pad. Leg was externally rotated to about 100 degrees so the trunnion was out of the way the acetabulum. I then used a bone tamp to tap around the outer rim of the acetabulum multiple times while suction was applied to the metal liner. This was continued until the metal liner became loose and was able to be extracted from the wound. The wound was then thoroughly irrigated. Synovectomy was once again performed on all tissue which appeared to be inflamed. I then placed the same size 52 x 36 acetabular liner in position and impacted into place. A DePuy revision titanium sleeve ceramic femoral head, size 36+8.5 mm, was then impacted onto the trunnion after was fully cleaned and dried. The hip was then reduced without difficulty. Stability was confirmed with no shuck at 90 degrees of external rotation and 30 degrees of extension. The wound was once again thoroughly irrigated with irrisept. I then injected all deep and subcutaneous tissues with a mixture of 50 cc of 0.25% ropivacaine, 30 mg of ketorolac, and 20 cc of Exparel. The second dose of TXA 1g was administered intravenously. The capsule was then reapproximated with the previously placed Ethibond sutures. The fascia interval was finally closed with a No. 2 Stratafix, barbed suture. Deep tissues were then reapproximated with 0 Vicryl and a running 2-0 Vicryl. The skin was closed with a running 4-0 Monocryl in a subcuticular fashion. This was reinforced with skin glue. A Mepilex silver dressing was applied. At the end of the case, all counts were correct. Chandrika was transferred to the hospital bed without difficulty and suffering no apparent complication. Chandrika has a good prognosis. Physical therapy will start today and without restrictions, weight-bearing as tolerated. Aspirin 81mg BID will be used for DVT prophylaxis.
--- NOTE | 2020-08-10 17:57 | PT.INNT ---
Date of service: 08/10/20 Time of Service: 17:38 PT Notes Visit Reasons: Right MAUREEN Revision Dr. Roman indicated that hospital discharge is non-PT dependent for this patient. He however is in agreement with PT seeing patient tomorrow morning for initial evaluation if she decides to stay overnight. Still in PACU as of 5:38 PM. Thank you for the opportunity to participate in the care of this patient. Rubina Hull PT, DPT, CLT [facility] [place], [place]
== END 2020-08-10 19:04 | disposition home or self-care (01) | DRG 468 ==
LOC: SUR 09-14 14:11 → MS 09-14 14:12
PROVIDERS: Admitting Provider Student in an Organized Health Care Education/Training Program; PCP Family Medicine; Visit Provider Student in an Organized Health Care Education/Training Program
PROC: 0SR904A Replacement of Right Hip Joint with Ceramic on Polyethylene Synthetic Substitute, Uncemented, Open Approach (ICD-10-PCS; CPT 27130; principal; 2020-08-10 12:00)
DX: T84.060A Wear of articular bearing surface of internal prosthetic right hip joint, initial encounter (principal); T84.89XA Other specified complication of internal orthopedic prosthetic devices, implants and grafts, initial encounter; T84.84XA Pain due to internal orthopedic prosthetic devices, implants and grafts, initial encounter; M25.851 Other specified joint disorders, right hip; Z96.641 Presence of right artificial hip joint; M25.551 Pain in right hip
CPT/HCPCS: 27134; G0378; J0690; J1885; J2250; J2405; J3490

== ENCOUNTER 2020-08-29 15:32 | Outpatient (CLI) | payer OTHER, SELFPAY ==
--- NOTE | 2020-08-29 14:15 | DI.RAD_ITS ---
EXAM: XR HIP RT COMPLETE AP PELVIS CLINICAL HISTORY: follow up. TECHNIQUE: 2D digital imaging was performed. COMPARISON: CR XR HIP RT COMPLETE AP PELVIS from 05/24/2020 FINDINGS: Position alignment of the components of the right hip prosthesis remain stable with no fracture or lo osening evident. No radiographic evidence of osteomyelitis. Some dystrophic calcification between t he superolateral aspect of the acetabulum and the greater trochanter is again noted, unchanged. Oppo site-left hip appears unremarkable. IMPRESSION: DATA REPOSITORY: RADIATION DOSE DELIVERED:
== END 2020-08-29 15:52 ==
PROVIDERS: PCP Family Medicine; Referring Provider Family Medicine; Visit Provider Physician Assistant Surgical
DX: Z96.641 Presence of right artificial hip joint (principal)
CPT/HCPCS: 73502

== ENCOUNTER 2020-10-21 13:35 | Outpatient (REF) | payer OTHER, SELFPAY ==
--- NOTE | 2020-10-21 09:15 | PAPFT_PTH ---
PATIENT: Chandrika Casanova LOC: [facility] U#:[id number] AGE/SX: 54/F ROOM: RE10/21/[address]: MAYURI Llamas : 1965 BED: DIS: 10/21/2020 SPEC #: [id number] RECD: 10/21/20 18:31 STATUS: CHARLENEKarina REVladimir #: [id number] JAYME: 10/21/20 09:[address]: Charley Sinclair DEPT: [facility] Cytology RECD BY: Alexandria Mejia ENTERED: 10/21/20 18:31 SP TYPE: PAPFT OTHR DR: eGnie Abdullahi Tissues: 1 - CX/ENDOCX FOR PAP SMEARS Procedures: PAP THIN PREP/UVM Screening HPV DNA PROBE Comments: [id number]
== END 2020-10-21 13:36 | disposition home or self-care (01) ==
LOC: LBN 13:35
PROVIDERS: PCP Family Medicine; Visit Provider Nurse Practitioner Family
DX: Z12.4 Encounter for screening for malignant neoplasm of cervix (principal); Z11.51 Encounter for screening for human papillomavirus (HPV)
CPT/HCPCS: 88142; 87624

== ENCOUNTER 2020-11-07 01:41 | Outpatient (CLI) | payer OTHER, SELFPAY ==
--- NOTE | 2020-11-07 10:20 | DI.RAD_ITS ---
EXAM: 2D digital imaging was performed. CLINICAL HISTORY: ABD PAIN,R10.9. COMPARISON: No exams were available for comparison TECHNIQUE: Supine views of the abdomen performed. FINDINGS: BOWEL GAS PATTERN: Nondistended. There is a moderate amount of retained stool throughout the colon. CALCIFICATIONS: No radiopaque calcifications. OSSEOUS STRUCTURES: Normal for age. The patient has a right total hip replacement. OTHER FINDINGS: Lung bases are clear. IMPRESSION: Moderate amount of retained stool. DATA REPOSITORY: RADIATION DOSE DELIVERED:
== END 2020-11-07 02:01 ==
PROVIDERS: PCP Family Medicine; Visit Provider Family Medicine
DX: R10.9 Unspecified abdominal pain (principal); K59.09 Other constipation
CPT/HCPCS: 74018

== ENCOUNTER 2020-12-21 00:52 | Outpatient (CLI) | payer OTHER, SELFPAY ==
--- NOTE | 2020-12-21 08:00 | DI.MAMMO_ITS ---
Exam(s) MAMMO SCREENING EXAM: MAMMO SCREENING CLINICAL HISTORY: screening,Z12.39. TECHNIQUE: Bilateral full field digital CC and MLO mammographic images were obtained with 3D tomosyn thesis and utilizing computer aided detection (CAD). COMPARISON: Prior mammograms dating back to 2010, the most recent being December 2019. Mother diagnosed breast cancer young age FINDINGS: Fibroglandular tissue is moderately dense, this decreasing sensitivity mammogram for finding hidden u nderlying lesions. There are no new obvious spiculated masses nor malignant appearing microcalcification groups. There is no significant architectural distortion nor skin thickening-retraction. IMPRESSION: Dense bilateral fibroglandular tissue. No obvious radiographic evidence of malignancy nor significan t change compared the prior studies listed above. Given the density of this patient's fibroglandular tissue and significant family history, I feel woul d be prudent to perform screening bilateral breast ultrasound. BI-RADS Category 2 - Benign Findings Breast Density - Category C - Heterogeneously dense Breast density Category C or D implies that the patient has dense breast tissue. Dense breast tissue can make it harder to find cancer on a mammogram. Dense breast tissue is also associated with an incr eased risk of breast cancer. This information about the result of the mammogram report was provided to the patient to raise their awareness. Use this report when you speak with the patient about their risks for breast cancer, which includes their family history. At that time, you may recommend additional screening tests (Ultrasoun d or MRI) as these tests may add significant information. A negative radiographic report should not delay biopsy if a dominant or clinically suspicious mass is present. Up to ten percent of cancers are not identified on mammography. A negative report may reinforce clinical impression. Adenosis and dense breasts may obscure an underlying neoplasm. False positive reports average 6 to 10%. Patient will receive a letter notifying them of these results.
== END 2020-12-21 01:12 ==
PROVIDERS: PCP Family Medicine; Visit Provider Nurse Practitioner Family
DX: Z12.31 Encounter for screening mammogram for malignant neoplasm of breast (principal); Z80.3 Family history of malignant neoplasm of breast
CPT/HCPCS: 77063; 77067

== ENCOUNTER 2021-05-08 13:50 | Outpatient (REF) | payer OTHER, SELFPAY ==
[2021-05-08 18:25] LABS: COMMENT (LAB VIEW ONLY) 28.49 mg/dL
== END 2021-05-08 13:51 | disposition home or self-care (01) ==
LOC: NCHCN 13:50
PROVIDERS: PCP Family Medicine; Visit Provider Family Medicine
DX: E11.9 Type 2 diabetes mellitus without complications (principal)
CPT/HCPCS: 82043; 82570

== ENCOUNTER 2021-07-20 08:30 | Outpatient (CLI) | payer OTHER, SELFPAY ==
--- NOTE | 2021-07-20 08:34 | DI.RAD_ITS ---
Exam(s) XR HIP RT AP LAT ONLY EXAM: XR HIP RT AP LAT ONLY CLINICAL HISTORY: R hip pain and wekaness. TECHNIQUE: 2D digital imaging was performed. COMPARISON: Prior x-rays 08/29/2020 FINDINGS: Cyst stable position alignment of the components of the prosthesis. No fracture or loosening evident . IMPRESSION: DATA REPOSITORY: RADIATION DOSE DELIVERED:
== END 2021-07-20 08:31 | disposition home or self-care (01) ==
LOC: DIORS 08:30
PROVIDERS: PCP Family Medicine; Referring Provider Family Medicine; Visit Provider Student in an Organized Health Care Education/Training Program
DX: M25.551 Pain in right hip (principal); M76.31 Iliotibial band syndrome, right leg; Z96.641 Presence of right artificial hip joint; M25.851 Other specified joint disorders, right hip
CPT/HCPCS: 73502

== ENCOUNTER 2021-08-18 01:44 | Outpatient (CLI) | payer OTHER, SELFPAY ==
--- NOTE | 2021-08-18 07:30 | DI.NM_ITS ---
Exam(s) NM BONE SCAN 3 PHASE EXAM: NM BONE SCAN 3 PHASE CLINICAL HISTORY: RULE OUT LOOSENING OF RTHA,PAIN,T84.84XA,Z96.641. TECHNIQUE: Injected Dose: 25 mCi Tc-99m MDP COMPARISON: CR XR foot RT complete from 05/13/2018 CR XR ANKLE LT 2V from 06/22/2019 CR XR ANKLE RT 2V from 06/22/2019 CR XR HIP RT COMPLETE AP PELVIS from 05/24/2020 CR XR HIP RT COMPLETE AP PELVIS from 08/29/2020 CR XR ABDOMEN FLAT PLATE from 11/07/2020 CR XR HIP RT AP LAT ONLY from 07/20/2021 MR MRI HIP WO CONTRAST from 08/03/2021 FINDINGS: TRIPLE PHASE bone scan was performed with 23 millicuries IV technetium 99 MDP. Relevant prior imaging studies were reviewed PERFUSION PHASE reveals symmetric flow in the region of both hips. No asymmetry detected on the flow -angiogram phase. BLOOD POOL IMAGES: No abnormal asymmetric uptake. Photopenic zone in the right hip corresponds to th e prosthesis DELAYED IMAGES: There is mild focal uptake seen at the level of the inferior aspect of the stem of th e prosthesis as well as at the greater trochanter level. There is also some increased uptake seen in the inferior aspect of the right acetabulum at the junction of the inferior aspect of the acetabular cup and adjacent bone. No other abnormal uptake seen in the osseous pelvis. There is impressive uptake seen in the right ankle. June 2019 radiographs reveal hardware in the medial malleolus 2 screws and lateral fibular plate although the impressive uptake in the ankle appe ars to be in the tibiotalar joint where there is most probably advanced degenerative change. There i s no abnormal uptake seen in the opposite-left ankle nor in the knees nor in the left hip There is small focus of increased uptake in the right-side of the lower lumbar spine which is probabl y related to facet arthropathy at the right L4-5 facet joint, seen on abdominal images of November 2020. There is mild scoliosis in the spinal column but no other uptake in the entire spinal column nor in the rib cages nor in the shoulder girdles nor in the skull. IMPRESSION: 1. There is mild focal radiopharmaceutical uptake evident in the right acetabulum, greater trochanter , and femoral diaphysis at the lower stem level, as seen on the delayed images. This may indicate louis btle loosening. 2. There is no abnormal uptake seen in the opposite-left hip nor in either knee nor in the left ankle . 3. There is impressive uptake in the right tibiotalar-ankle joint, this being the ankle which contain s hardware from previous open reduction internal fixation, comprised of 2 screws in the medial malleo kiki and a lateral fixation plate in the fibula, as seen on prior x-rays. SPECT advanced degenerative change in the ankle-tibiotalar joint at this level and if clinically indicated dedicated radiographs can be performed. 4. Focal uptake consistent with right facet arthropathy at L4-5 level. 5. There is no abnormal uptake in the skeleton to suggest the presence of incidental metastatic osseo us disease. DATA REPOSITORY:
== END 2021-08-18 02:04 ==
PROVIDERS: PCP Family Medicine; Visit Provider Student in an Organized Health Care Education/Training Program
DX: T84.84XA Pain due to internal orthopedic prosthetic devices, implants and grafts, initial encounter (principal); Z96.641 Presence of right artificial hip joint
CPT/HCPCS: 78315

== ENCOUNTER 2021-11-30 08:10 | Outpatient (REF) | payer OTHER, SELFPAY ==
[2021-11-30 15:25] LABS: HGB 13.5 g/dL (11.2-15.7); MCH 29.9 pg (27.0-33.0); MCHC 33.8 % (32.0-36.0); MCV 89 fL (80-95); MPV 10.2 fL (8.0-11.0); Platelet Count 176 10^3/uL (130-400); RBC 4.51 10^6/uL (3.93-5.22); RDW 12.2 % (11.7-14.6); RDW-SD 39.5 fL; WBC 3.75 10^3/uL (4.4-10.8)
[2021-11-30 15:31] LABS: Anion Gap 7.9 mmol/L (3-11); BUN 17 mg/dL (7-18); CO2 27.1 mmol/L (21.0-32.0); CREATININE 0.9 mg/dL (0.55-1.02); Calcium 8.6 mg/dL (8.5-10.1); Chloride 104 mmol/L (98-107); Glucose 219 mg/dL (74-106); Potassium 3.9 mmol/L (3.5-5.1); Sodium 139 mmol/L (136-145)
[2021-11-30 16:01] LABS: Hemoglobin A1C 7.8 % (<5.7)
[2021-12-01 10:31] LABS: HIV-1/2 Ag & Ab Screen Negative (Negative)
== END 2021-11-30 08:11 | disposition home or self-care (01) ==
LOC: NCHCN 08:10
PROVIDERS: PCP Family Medicine; Visit Provider Family Medicine
DX: E11.9 Type 2 diabetes mellitus without complications (principal); I10 Essential (primary) hypertension; E78.5 Hyperlipidemia, unspecified; Z11.4 Encounter for screening for human immunodeficiency virus [HIV]; Z79.4 Long term (current) use of insulin
CPT/HCPCS: 80048; 85027; 87389; 83036

== ENCOUNTER → 2021-12-27 03:24 | Outpatient (CLI) | payer OTHER, SELFPAY ==
--- NOTE | 2021-12-27 16:45 | DI.MAMMO_ITS ---
Exam(s) MAMMO SCREENING EXAM: MAMMO SCREENING CLINICAL HISTORY: screening TECHNIQUE: Bilateral full field digital CC and MLO mammographic images were obtained with 3D tomosyn thesis and utilizing computer aided detection (CAD). COMPARISON: Available for comparison. FINDINGS: Masses/Architectural Distortion: None seen. Microcalcifications: No suspicious pleomorphic-type are seen. Skin Thickening/Nipple Retraction: None. IMPRESSION: 1. No significant interval change with no specific features of malignancy noted. 2. Unless there is more urgent need, screening mammography is recommended, as per [employer] guidelines. BI-RADS Category 1 - Negative Breast Density - Category C - Heterogeneously dense Breast density category C or D implies that the patient has dense breast tissue. Dense breast tissue is very common and is not abnormal but dense breast tissue can make it harder to find cancer on a ma mmogram. Also, dense breast tissue may increase their breast cancer risk. This information about the result of the mammogram report was provided to the patient to raise their awareness. Use this report when you speak with the patient about their risks for breast cancer, which includes their family hist ory. At that time, you may recommend for more screening tests (Ultrasound or MRI) as they might be us eful based on their risk. A negative radiographic report should not delay biopsy if a dominant or clinically suspicious mass is present. Up to ten percent of cancers are not identified on mammography. A negative report may reinforce clinical impression. Adenosis and dense breasts may obscure an underlying neoplasm. False positive reports average 6 to 10%. Patient will receive a letter notifying them of these results.
== END ==
PROVIDERS: PCP Family Medicine; Visit Provider Nurse Practitioner Family
DX: Z12.31 Encounter for screening mammogram for malignant neoplasm of breast (principal)
CPT/HCPCS: 77063; 77067

== ENCOUNTER 2022-03-21 09:18 | Outpatient (CLI) | payer OTHER, SELFPAY ==
--- NOTE | 2022-03-21 06:00 | DI.RAD_ITS ---
Exam(s) XR PAIN CLINIC LUMBAR SP 2V EXAM: XR PAIN CLINIC LUMBAR SP 2V CLINICAL HISTORY: Dx: Lumbar Spondylosis TECHNIQUE: 2D and realtime digital imaging was performed. COMPARISON: No exams were available for comparison FINDINGS: C-arm fluoroscopy was utilized by Dr. Bell during reported bilateral lumbar injections, presumably fo r lumbar medial branch block. Hard copies show needle placement and injections bilaterally at the L3 -4, L4-5, and L5-S1 levels. IMPRESSION: RADIATION DOSE DELIVERED: helen Lisa=12.62 mGy
[2022-03-21 09:29] VITALS: BP 134/79; PULSE 54; RESP 20; TEMP 36.6; O2SAT 100
--- NOTE | 2022-03-21 10:12 | PDOC.PAIN ---
Pain Clinic Procedure Note Procedure Note Procedure Note: Lumbar/Sacral Medial Branch Blocks (Confirmatory) Chandrika Casanova has been referred to the [facility] for lumbar/sacral medial branch blocks. COMMENTS: Irritation with Chloroprep, so we used Alcohol for prep. Pre-procedure pain VAS 5/10. Dx: Lumbosacral spondylosis without myelopathy Patient was interviewed and the medical record reviewed. There were no medical, pharmacologic, radiographic or other structural contraindications to attempting fluoroscopically guided local anesthetic lumbar/sacral medial branch blocks. Risks and expected side effects as well as potential benefit of the procedure were reviewed and voiced concerns addressed. The printed consent form was signed and witnessed. Standard time-out procedure was performed. Patient was placed in the prone position on the fluoroscopy table and automated blood pressure cuff and pulse oximeter applied. The skin entry points for approaching the anatomic target points of the segmental medial branches of the bilateral L3, L4, and L5DR were identified with anfluoroscopy and marked. Following thorough Chlorhexadine preparation of the skin and draping and 1% lidocaine infiltration of the skin entry points and subcutaneous tissues, a 22 gauge spinal needle was placed under fluoroscopic guidance down on to the target point for each respective segmental medial branch.Position was confirmed in A/P, oblique and lateral views with 0.25ml of omnipaque 240. At this point I injected 0.5cc of 2% Lidocaine and the needles were removed. Vital signs were stable throughout the procedure and were as recorded in the docflowsheet by the nursing staff. Follow up plans and appointments were discussed and was instructed to keep careful note of how the usual pain was modified by these injections. Specifically was asked to keep a pain diary for the next 24 hours using a numeric pain scale of 0-10 and report these results at the follow-up visit. Post procedure instruction was given as documented in the nursing documentation and having met discharge criteria. Patient was discharged from the [facility]. Based on the medial branches blocked today, if the patient has adequate relief and we are able to proceed to radiofrequency ablation, the treatment should result in the denervation of the bilateral L4-L5 and L5-S1 FACET JOINTS. We would expect to denervate a total of 4 facets during the radiofrequency ablation. COMMENTS: Post-procedure pain VAS was 1/10. Gary Bell DO, MPH [facility]-Pain Management [facility] CC: Genie Abdullahi
[2022-03-21] MEDS: Omnipaque 240 MG/ML 50 ML BTL IJ (10:22)
[2022-03-21] MEDS: Lidocaine 2% Pres-Free 5 ML VIAL IJ (10:22)
[2022-03-21 10:23] VITALS: BP 140/88; PULSE 67; RESP 16; O2SAT 100
== END 2022-03-21 09:19 | disposition home or self-care (01) ==
LOC: PC 09:18
PROVIDERS: PCP Family Medicine; Visit Provider Preventive Medicine Occupational Medicine
DX: M47.817 Spondylosis without myelopathy or radiculopathy, lumbosacral region (principal)
CPT/HCPCS: 64493; 64494; 72100; Q9967

== ENCOUNTER 2022-04-18 10:55 | Outpatient (REF) | payer OTHER, SELFPAY ==
[2022-04-19 18:38] LABS: Albumin, Ur < 0.6 mg/dL (See Note); Creatinine, Ur 72.6 mg/dL (See Note)
== END 2022-04-18 10:56 | disposition home or self-care (01) ==
LOC: NCHCN 10:55
PROVIDERS: PCP Family Medicine; Visit Provider Family Medicine
DX: E11.9 Type 2 diabetes mellitus without complications (principal)
CPT/HCPCS: 82043; 82570

== ENCOUNTER 2022-07-18 10:22 | Outpatient (CLI) | payer OTHER, SELFPAY ==
--- NOTE | 2022-07-18 06:00 | DI.RAD_ITS ---
Exam(s) XR PAIN CLINIC LUMBAR SP 2V EXAM: XR PAIN CLINIC LUMBAR SP 2V CLINICAL HISTORY: Dx: Lumbar Spondylosis TECHNIQUE: 2D and realtime digital imaging was performed. CONTRAST MATERIAL: Refer to procedure report. COMPARISON: No exams were available for comparison FINDINGS: Fluoroscopy was provided for Dr. Bell during the performance of a lumbar radiofrequency ablation. P lease refer to the procedure report for complete details. Ka,r=21.9 mGy IMPRESSION:
[2022-07-18 10:30] VITALS: BP 133/80; PULSE 68; RESP 20; TEMP 37; O2SAT 96
[2022-07-18] MEDS: fentaNYL 100 MCG/2 ML VIAL IVP (10:55)
[2022-07-18] MEDS: Lactated Ringers 500 ML 80 ML IV (10:56)
[2022-07-18] MEDS: Midazolam 2 MG/2 ML VIAL IVP (10:56)
[2022-07-18 11:35] VITALS: BP 113/59; PULSE 73; RESP 19; O2SAT 99
[2022-07-18] MEDS: methylPREDNISolone ACETATE 40 MG/ML VIAL IJ (11:53)
[2022-07-18] MEDS: Lidocaine 2% Pres-Free 5 ML VIAL IJ (11:53)
[2022-07-18] MEDS: Bupivacaine 0.5% Pres-Free 10 ML VIAL IJ (11:54)
--- NOTE | 2022-07-18 12:28 | PDOC.PAIN ---
Date of service: 07/18/22 Time of Service: 12:00 Pain Clinic Procedure Note Procedure Note Procedure Note: Bilateral Lumbar Radiofrequency with Coolief Machine PROCEDURE NOTE Date of Service: July 18, 2022 Patient: Chandrika Casanova Provider: Gary Bell DO, MPH Pre Operative Diagnosis: Lumbosacral Spondylosis without Myelopathy Post Operative Diagnosis: Same Pre procedure pain; VAS= 7/10 Comments: Allergic to Chloroprep - alcohol will be used for skin prep PROCEDURE: Radiofrequency Ablation of medial branches - bilateral L3, L4, and L5DR. Chandrika Casanova was brought into the fluoroscopy suite and positioned into the prone position on the fluoroscopy table and allowed to adjust to a position of comfort. A grounding pad was placed on the left thigh. The lumbar region was widely prepped with a alcohol solution, allowed to air dry and draped in standard sterile surgical fashion. Local anesthesia was provided by 4 mL of 2 % Lidocaine delivered with a 25g needle. A 17g 100 mm radiofrequency introducer needle was placed to the planned anatomic targets guided with intermittent fluoroscopy with a perpendicular approach to terminally place at the junction of the superior articular process and the transverse process of the bilateral L4 L5], the base of the sacral ala on the bilateral for the L5 medial branch nerve. The stylets were removed and radiofrequency probes with a 4mm active tip were then inserted. Needle tip position of the probes was verified in the AP, oblique, and lateral views. At each site, the medial branch nerve was stimulated at 2 Hz to a maximum 1-2 volts determined to finalize safe needle and electrode placement. The patient was awake and responsive during this portion of the procedure. Each target was anesthetized with 1-2 mL of 2% Lidocaine for anesthesia for lesioning and then each target was lesioned at 80 degrees Celsius for 2 minutes and 30 seconds. Tissue impedences were noted to be between 250 and 500 Ohms. 1/3 cc of Depomedrol (40 mg/cc) followed by 1 cc of 0.5% Bupivacaine was injected at each segmental sensory nerve. Electrodes and needles were then removed and bandages placed over the needle placement sites, the patient then returned to the supine position on a stretcher and transported to the recovery room without hemodynamic, neurologic, or allergic reactions. Fluoroscopic images were printed for hard copy recording and digitally archived. POST PROCEDURE EVALUATION: IMPRESSION: 1. Summary of procedure. Medication given is documented in the MAR. 2. The patient will be contacted in 1-3 weeks 3. Estimated Blood Loss: <5 mls 4. Fluoroscopy time: Documented in the EMR. Follow up plans and appointments were discussed with the Chandrika . Post procedure instruction was given as documented in nursing documentation and having met discharge criteria, Chandrika was discharged from the Pain Management Center. COMMENTS: No apparent complications. Post-procedure pain: VAS= 0/10. F/U with our office as needed. I personally performed this entire procedure. Gary Bell DO, MPH [facility]-Pain Management [facility] Management
== END 2022-07-18 10:23 | disposition home or self-care (01) ==
LOC: PC 10:22
PROVIDERS: PCP Family Medicine; Visit Provider Preventive Medicine Occupational Medicine
DX: M47.817 Spondylosis without myelopathy or radiculopathy, lumbosacral region (principal)
CPT/HCPCS: 64635; 64636; 72100; J1030; J2250; J3010

== ENCOUNTER 2022-11-08 10:44 | Outpatient (CLI) | payer OTHER, SELFPAY ==
--- NOTE | 2022-11-08 10:22 | DI.RAD_ITS ---
Exam(s) XR ELBOW LT COMPLETE EXAM: XR ELBOW LT COMPLETE CLINICAL HISTORY: Left elbow pain. TECHNIQUE: 2D digital imaging was performed. COMPARISON: No exams were available for comparison FINDINGS: 3 views No evidence of acute fracture or joint effusion or swelling of the olecranon bursa. Radial head and neck appear unremarkable. There is fragmentation of the lateral epicondyle. Multiple small corticated densities are seen adjac ent to the epicondyle. This is at the insertional aspect of the common extensor tendon. Similar fin dings are not seen on the opposite-medial epicondyle. IMPRESSION: Lateral epicondyle findings described above. Correlation any clinical signs of epicondylitis recomme nded. DATA REPOSITORY: RADIATION DOSE DELIVERED:
== END 2022-11-08 10:45 | disposition home or self-care (01) ==
LOC: DIORS 10:44
PROVIDERS: PCP Family Medicine; Referring Provider Family Medicine; Visit Provider Physician Assistant
DX: M25.522 Pain in left elbow (principal); M85.88 Other specified disorders of bone density and structure, other site
CPT/HCPCS: 73080

== ENCOUNTER 2023-01-09 00:33 | Outpatient (CLI) | payer OTHER, SELFPAY ==
--- NOTE | 2023-01-09 17:00 | DI.MAMMO_ITS ---
Exam(s) MAMMO SCREENING EXAM: MAMMO SCREENING CLINICAL HISTORY: screening TECHNIQUE: Bilateral full field digital CC and MLO mammographic images were obtained with 3D tomosyn thesis and utilizing computer aided detection (CAD). COMPARISON: Available for comparison. FINDINGS: Masses/Architectural Distortion: None seen. Microcalcifications: No suspicious pleomorphic-type are seen. Skin Thickening/Nipple Retraction: None. IMPRESSION: 1. No significant interval change with no specific features of malignancy noted. 2. Unless there is more urgent need, screening mammography is recommended, as per [employer] guidelines. BI-RADS Category 1 - Negative Breast Density - Category C - Heterogeneously dense Breast density category C or D implies that the patient has dense breast tissue. Dense breast tissue is very common and is not abnormal but dense breast tissue can make it harder to find cancer on a ma mmogram. Also, dense breast tissue may increase their breast cancer risk. This information about the result of the mammogram report was provided to the patient to raise their awareness. Use this report when you speak with the patient about their risks for breast cancer, which includes their family hist ory. At that time, you may recommend for more screening tests (Ultrasound or MRI) as they might be us eful based on their risk. A negative radiographic report should not delay biopsy if a dominant or clinically suspicious mass is present. Up to ten percent of cancers are not identified on mammography. A negative report may reinforce clinical impression. Adenosis and dense breasts may obscure an underlying neoplasm. False positive reports average 6 to 10%. Patient will receive a letter notifying them of these results.
== END 2023-01-09 00:53 ==
LOC: DI 00:33
PROVIDERS: PCP Family Medicine; Visit Provider Obstetrics & Gynecology
DX: Z12.31 Encounter for screening mammogram for malignant neoplasm of breast (principal)
CPT/HCPCS: 77063; 77067

== ENCOUNTER 2023-01-30 15:21 | Outpatient (REF) | payer OTHER, SELFPAY ==
[2023-01-30 16:09] LABS: HCT 39.5 % (36.0-46.0); HGB 13.3 g/dL (11.2-15.7); MCH 29.3 pg (27.0-33.0); MCHC 33.7 % (32.0-36.0); MCV 87 fL (80-95); MPV 10.6 fL (8.0-11.0); Platelet Count 171 10^3/uL (130-400); RBC 4.54 10^6/uL (3.93-5.22); RDW 12.2 % (11.7-14.6); WBC 3.68 10^3/uL (4.4-10.8)
[2023-01-30 16:35] LABS: ALT 37 U/L (14-59); AST 29 U/L (15-37); Albumin 3.7 g/dL (3.4-5.0); Alkaline Phosphatase 102 U/L (46-116); Anion Gap 10.4 mmol/L (3-11); BUN 25 mg/dL (7-18); Bilirubin, Total 0.5 mg/dL (0.2-1.0); CO2 25.6 mmol/L (21.0-32.0); CREATININE 0.8 mg/dL (0.55-1.02); Calcium 8.8 mg/dL (8.5-10.1); Chloride 104 mmol/L (98-107); Estimated GFR 84.82 (mL/min/1.73m2); Glucose 200 mg/dL (74-106); Sodium 140 mmol/L (136-145); TSH (W/Ref FT4) 2.35 uIU/mL (0.36-3.74); Total Protein 6.9 g/dL (6.4-8.2)
[2023-01-30 20:06] LABS: Hemoglobin A1C 7.8 % (<5.7)
== END 2023-01-30 15:22 | disposition home or self-care (01) ==
LOC: NCHCN 15:21
PROVIDERS: PCP Family Medicine; Visit Provider Family Medicine
DX: R94.6 Abnormal results of thyroid function studies (principal); I10 Essential (primary) hypertension; E11.9 Type 2 diabetes mellitus without complications; R53.83 Other fatigue; Z79.4 Long term (current) use of insulin
CPT/HCPCS: 80053; 85027; 83036; 84443

== ENCOUNTER 2023-02-20 16:39 | Outpatient (REF) | payer OTHER, SELFPAY ==
[2023-02-20 21:25] LABS: COMMENT (LAB VIEW ONLY) 148.72 mg/dL; Microalb ug/mg Crea 5.1 ug/mg Cr
== END 2023-02-20 16:40 | disposition home or self-care (01) ==
LOC: NCHCN 16:39
PROVIDERS: PCP Family Medicine; Visit Provider Family Medicine
DX: E11.9 Type 2 diabetes mellitus without complications (principal)
CPT/HCPCS: 82043; 82570

== ENCOUNTER 2023-02-22 14:50 | Outpatient (CLI) | payer OTHER, SELFPAY ==
--- NOTE | 2023-02-22 11:55 | DI.RAD_ITS ---
Exam(s) XR FOOT RT COMPLETE EXAM: XR FOOT RT COMPLETE CLINICAL HISTORY: rule out stress fracture or hairline fracture M79.671 PAIN RT FOOT. TECHNIQUE: 2D digital imaging was performed. Three views. COMPARISON: No exams were available for comparison FINDINGS: BONES: No acute fracture is present. No bony destructive lesion is seen. JOINTS: No dislocation present. Tibiotalar joint prosthesis. No significant degenerative changes in the foot. SOFT TISSUE: Normal. IMPRESSION: Unremarkable radiographs of the right foot. No evidence of stress fracture. DATA REPOSITORY: RADIATION DOSE DELIVERED:
== END 2023-02-22 15:10 ==
LOC: DI 14:50
PROVIDERS: PCP Family Medicine; Visit Provider Podiatrist
DX: M79.671 Pain in right foot (principal)
CPT/HCPCS: 73630

== ENCOUNTER 2023-05-08 16:00 | Outpatient (CLI) | payer OTHER, SELFPAY ==
--- NOTE | 2023-05-08 06:00 | DI.RAD_ITS ---
Exam(s) XR PAIN CLINIC LUMBAR SP 2V EXAM: XR PAIN CLINIC LUMBAR SP 2V CLINICAL HISTORY: DX: Lumbar Spondylosis. TECHNIQUE: Fluoroscopy was provided for the referring physician for guidance with performing pain cl inic injection procedure. COMPARISON: No exams were available for comparison FINDINGS: Please see procedure note for details. Fluoro time: 54.1 seconds RADIATION DOSE DELIVERED: helen Lisa=12.86 mGy
[2023-05-08 16:07] VITALS: BP 152/77; PULSE 82; RESP 20; TEMP 36.7; O2SAT 97
--- NOTE | 2023-05-08 16:43 | PDOC.PAIN ---
Date of service: 05/08/23 Time of Service: 16:43 Pain Managment Procedure Note Procedure Note Procedure Note: INTRA-ARTICULAR FACET JOINT INJECTION Chandrika Casanova has been referred to the [facility] for intra-articular lumbar facet joint injection. COMMENTS: I previously evaluated her in the office. We are using the intra-articular facet joint approach in an attempt to give her quicker pain relief and help her to improve her function. She is headed to [place] later this month and hoping to increase her activity with this procedure. She is allergic to Chlorohexadine and we will use alcohol prep instead. Pre-procedure pain level: 01/12 Dx: Lumbosacral spondylosis without myelopathy Patient was interviewed and the medical record reviewed. There were no medical, pharmacologic, radiographic or other structural contraindications to attempting fluoroscopically guided intra-articular lumbar facet joint injection. Risks and expected side effects as well as potential benefit of the procedure were reviewed and voiced concerns addressed. The printed consent form was signed and witnessed. Standard time-out procedure was performed. Patient was placed in the prone position on the fluoroscopy table and automated blood pressure cuff and pulse oximeter applied. The skin entry point for approaching the bilateral facet joints at L4-L5 and L5-S1 was identified under the most advantageous fluoroscopic view and marked. Following thorough alcohol preparation of the skin and draping and 1% lidocaine infiltration of the skin entry point and subcutaneous tissues, a 22 gauge spinal needle was placed under fluoroscopic guidance into right L4-L5 facet joint. Intra-articular placement was confirmed by a clear arthrogram resulting from the injection of 0.25ml Omnipaque 240. .5ml 1% lidocaine and 20mg Depomedrol were injected intra-articularily with an initial reproduction of a significant component of the usual pain. This procedure was repeated to the right L5-S1 facet and the left L4-L5 and L5-S1 facet joints. Vital signs were stable throughout the procedure and were as recorded in the docflowsheet by the nursing staff. If given, dosages of intravenous drugs for anxiolysis and analgesia were documented in MAR. Follow up plans and appointments were discussed. Post procedure instruction was given as documented in nursing documentation and having met discharge criteria,was discharged from the [facility] Management Center. COMMENTS: Post-procedure pain VAS was 0/10. She will keep track of her pain level for the next 3 months. Gary Bell DO, MPH [facility]-Pain Management [facility] CC: Genie Abdullahi
[2023-05-08 16:46] VITALS: BP 154/87; PULSE 84; RESP 11; O2SAT 97
[2023-05-08] MEDS: methylPREDNISolone ACETATE 40 MG/ML VIAL IJ ×2 (16:51→16:52)
[2023-05-08] MEDS: Lidocaine 2% Pres-Free 5 ML VIAL IJ (16:51)
[2023-05-08] MEDS: Omnipaque 240 MG/ML 50 ML BTL IJ (16:51)
== END 2023-05-08 16:01 | disposition home or self-care (01) ==
LOC: PC 16:00
PROVIDERS: PCP Family Medicine; Visit Provider Preventive Medicine Occupational Medicine
DX: M47.817 Spondylosis without myelopathy or radiculopathy, lumbosacral region (principal)
CPT/HCPCS: 64493; 64494; 72100; J1030; Q9967

== ENCOUNTER 2023-05-16 15:00 | Outpatient (RCR) | payer OTHER, SELFPAY ==
--- NOTE | 2023-05-16 15:00 | HOLTER_ITS ---
APPROVED REPORT Conclusion This is a 48-hour Holter monitor ordered for palpitations Rhythm throughout is sinus. Average heart rate was 86. Minimum was 64, maximum 145 A total of 2 isolated PVCs occurred There were 47 isolated atrial premature beats There was no atrial fibrillation, no SVT, no high-grade AV block, no pauses greater than 3 seconds Patient symptoms were reported which had no correlation with any dysrhythmia
== END 2023-06-04 23:59 | disposition home or self-care (01) ==
LOC: CARDOPNVT 15:00
PROVIDERS: PCP Family Medicine; Visit Provider Family Medicine
DX: R00.2 Palpitations (principal); I49.1 Atrial premature depolarization
CPT/HCPCS: 93225; 93226

== ENCOUNTER 2023-08-29 04:00 | Outpatient (CLI) | payer OTHER, SELFPAY ==
[2023-08-29 13:36] LABS: Ferritin 27 ng/mL (8-252)
== END 2023-08-29 04:01 | disposition home or self-care (01) ==
PROVIDERS: PCP Family Medicine; Visit Provider Nurse Practitioner
DX: G47.61 Periodic limb movement disorder (principal); G47.33 Obstructive sleep apnea (adult) (pediatric); M25.551 Pain in right hip
CPT/HCPCS: 36415; 82728

== ENCOUNTER 2023-09-11 14:13 | Outpatient (CLI) | payer OTHER, SELFPAY ==
[2023-09-11 14:26] VITALS: BP 129/80; PULSE 75; RESP 20; TEMP 36.5; O2SAT 96
--- NOTE | 2023-09-11 15:30 | DI.RAD_ITS ---
Exam(s) XR PAIN CLINIC LUMBAR SP 2V EXAM: XR PAIN CLINIC LUMBAR SP 2V CLINICAL HISTORY: Dx: Lumbar Spondylosis. TECHNIQUE: Fluoroscopy was provided for the referring physician for guidance with performing pain cl inic injection procedure. COMPARISON: No exams were available for comparison FINDINGS: Please see procedure note for details. Fluoro time: 42.3 seconds RADIATION DOSE DELIVERED: helen Lisa=10.36 mGy
[2023-09-11 15:31] VITALS: BP 127/68; PULSE 87; RESP 13; O2SAT 96
[2023-09-11] MEDS: Omnipaque 240 MG/ML 50 ML BTL IJ (15:32)
[2023-09-11] MEDS: methylPREDNISolone ACETATE 40 MG/ML VIAL IJ (15:32)
[2023-09-11] MEDS: Nerve Block Tray 1 EACH MC (15:32)
[2023-09-11] MEDS: Lidocaine 2% Pres-Free 5 ML VIAL IJ (15:33)
--- NOTE | 2023-09-12 13:23 | PDOC.PAIN ---
Date of service: 09/11/23 Time of Service: 15:52 Pain Managment Procedure Note Procedure Note Procedure Note: Pain Managment Procedure Note Procedure Note Procedure Note: INTRA-ARTICULAR FACET JOINT INJECTION Chandrika Casanova has been referred to the [facility] for intra-articular lumbar facet joint injection. COMMENTS: I previously evaluated her in the office. She did excellent with her last intra-articular facet injections. She is allergic to Chlorohexadine and we will use alcohol prep instead. Pre-procedure pain level: 5/10 Dx: Lumbosacral spondylosis without myelopathy Patient was interviewed and the medical record reviewed. There were no medical, pharmacologic, radiographic or other structural contraindications to attempting fluoroscopically guided intra-articular lumbar facet joint injection. Risks and expected side effects as well as potential benefit of the procedure were reviewed and voiced concerns addressed. The printed consent form was signed and witnessed. Standard time-out procedure was performed. Patient was placed in the prone position on the fluoroscopy table and automated blood pressure cuff and pulse oximeter applied. The skin entry point for approaching the bilateral facet joints at L4-L5 and L5-S1 was identified under the most advantageous fluoroscopic view and marked. Following thorough alcohol preparation of the skin and draping and 1% lidocaine infiltration of the skin entry point and subcutaneous tissues, a 22 gauge spinal needle was placed under fluoroscopic guidance into right L4-L5 facet joint. Intra-articular placement was confirmed by a clear arthrogram resulting from the injection of 0.25ml Omnipaque 240. .5ml 1% lidocaine and 20mg Depomedrol were injected intra-articularily with an initial reproduction of a significant component of the usual pain. This procedure was repeated to the right L5-S1 facet and the left L4-L5 and L5-S1 facet joints. Vital signs were stable throughout the procedure and were as recorded in the docflowsheet by the nursing staff. If given, dosages of intravenous drugs for anxiolysis and analgesia were documented in MAR. Follow up plans and appointments were discussed. Post procedure instruction was given as documented in nursing documentation and having met discharge criteria,was discharged from the [facility] Management Center. COMMENTS: Post-procedure pain VAS was 0/10. She will keep track of her pain level for the next 3 months. Gary Bell DO, MPH [facility]-Pain Management [facility] for [facility] CC: Genie Abdullahi
== END 2023-09-11 14:14 | disposition home or self-care (01) ==
LOC: PC 14:14
PROVIDERS: PCP Family Medicine; Visit Provider Preventive Medicine Occupational Medicine
DX: M47.817 Spondylosis without myelopathy or radiculopathy, lumbosacral region (principal)
CPT/HCPCS: 00123; 64493; 64494; 72100; J1030; Q9967

== ENCOUNTER → 2024-01-22 01:44 | Outpatient (CLI) | payer OTHER, SELFPAY ==
--- NOTE | 2024-01-22 17:30 | DI.MAMMO_ITS ---
Exam(s) MAMMO SCREENING EXAM: MAMMO SCREENING CLINICAL HISTORY: screening TECHNIQUE: Bilateral full field digital CC and MLO mammographic images were obtained with 3D tomosyn thesis and utilizing computer aided detection (CAD). COMPARISON: Available for comparison. FINDINGS: Masses/Architectural Distortion: None seen. Microcalcifications: No suspicious pleomorphic-type are seen. Skin Thickening/Nipple Retraction: None. IMPRESSION: 1. No significant interval change with no specific features of malignancy noted. 2. Unless there is more urgent need, screening mammography is recommended, as per [employer] guidelines. BI-RADS Category 1 - Negative Breast Density - Category C - Heterogeneously dense Breast density category C or D implies that the patient has dense breast tissue. Dense breast tissue is very common and is not abnormal but dense breast tissue can make it harder to find cancer on a ma mmogram. Also, dense breast tissue may increase their breast cancer risk. This information about the result of the mammogram report was provided to the patient to raise their awareness. Use this report when you speak with the patient about their risks for breast cancer, which includes their family hist ory. At that time, you may recommend for more screening tests (Ultrasound or MRI) as they might be us eful based on their risk. A negative radiographic report should not delay biopsy if a dominant or clinically suspicious mass is present. Up to ten percent of cancers are not identified on mammography. A negative report may reinforce clinical impression. Adenosis and dense breasts may obscure an underlying neoplasm. False positive reports average 6 to 10%. Patient will receive a letter notifying them of these results.
== END ==
PROVIDERS: PCP Family Medicine; Visit Provider Obstetrics & Gynecology
DX: Z12.31 Encounter for screening mammogram for malignant neoplasm of breast (principal)
CPT/HCPCS: 77063; 77067

== ENCOUNTER 2024-02-12 10:54 | Outpatient (CLI) | payer OTHER, SELFPAY ==
--- NOTE | 2024-02-12 06:00 | DI.RAD_ITS ---
Exam(s) XR PAIN CLINIC LUMBAR SP 2V EXAM: XR PAIN CLINIC LUMBAR SP 2V CLINICAL HISTORY: Lumbar Spondylosis TECHNIQUE: 2D and realtime digital imaging was performed. CONTRAST MATERIAL: Refer to procedure report. COMPARISON: No exams were available for comparison FINDINGS: Fluoroscopy was provided for Dr. Bell during the performance of a bilateral lumbar medial branch blo ck. Please refer to the procedure report for complete details. Ka,r=13.2 mGy IMPRESSION: RADIATION DOSE DELIVERED: 0.0 0.0 0
[2024-02-12 11:04] VITALS: BP 126/70; PULSE 67; RESP 20; TEMP 36.6; O2SAT 99
[2024-02-12 11:22] VITALS: PULSE 70; RESP 11; O2SAT 96
[2024-02-12 11:30] VITALS: PULSE 65; RESP 15; O2SAT 97
[2024-02-12 11:36] VITALS: BP 129/90; PULSE 68; PULSE 73; RESP 12; O2SAT 97
[2024-02-12] MEDS: Omnipaque 240 MG/ML 50 ML BTL IJ (11:41)
[2024-02-12] MEDS: Nerve Block Tray 1 EACH MC (11:41)
[2024-02-12] MEDS: Bupivacaine 0.5% Pres-Free 10 ML VIAL IJ (11:41)
--- NOTE | 2024-02-12 13:15 | PDOC.PAIN_ITS ---
Date of service: 02/12/24 Time of Service: 13:15 Pain Managment Procedure Note Procedure Note Procedure Note: PROCEDURE NOTE Bilateral Lumbar Medial Branch Blocks Date of Service: February 12, 2024 Patient: Chandrika Casanova Provider: Carmina Bell DO, MPH Chandrikaisaac Casanova has been referred to the [facility] Management Center for lumbar medial branch blocks. Pre-operative diagnosis: Lumbar Spondylosis without Myelopathy Post-operative diagnosis: Same Pre-procedure pain: VAS= 6/10 COMMENTS: She has a sensitivity to Chlroprep so this will not be used. I previously evaluated her in the clinic. Chela was interviewed and the medical records were reviewed. There were no medical, pharmacologic, radiographic or other structural contraindications to attempting fluoroscopically guided local anesthetic lumbar medial branch blocks. Risks and potential side effects were discussed. I also discussed the potential benefit(s) of the procedure with Chandrika, and voiced concerns were addressed. After Chandrika was completely informed about the procedure, the printed consent form was signed. A standard time-out procedure was performed. Chandrika was placed in the prone position on the fluoroscopy table. Automated blood pressure cuff and pulse oximeter were applied. The skin entry points for approaching the anatomic target points of the segmental medial branches of bilateral L3,L4,L5 were identified with fluoroscopy and marked. The skin at the target site area was thoroughly prepared with alcohol. The skin was then draped. Next, a 25 gauge 3.5 spinal needle was placed under fluoroscopic guidance down on to the target point (the articular pillar) for each respective segmental medial branch. Position was confirmed in A/P and lateral views. Aspiration revealed no blood or clear fluid. Next, 0.25ml of omnipaque 240 was injected at each level. No contrast following a vascular or neural pattern was visualized under continuous fluoroscopy. Next, 0.25 ml of preservative-free 0.5% bupivicaine was injected at each level. There was no unusual discomfort expressed by Chandrika. The needles were withdrawn without difficulty. (49 mls of Omnipaque was wasted) Chandrika was observed and was without hemodynamic, neurologic, or allergic reactions.? Fluoroscopic images were digitally archived. Provacative testing using the Modified Gilmore's facet loading test- Left side Right Side Directly before the block VAS (0-10) = 6/10 VAS (0-10) = 6/10 Five minutes after the block VAS (0-10) = 1/10 VAS (0-10) = 1/10 Percentage relief obtained with this diagnostic block 80% 80% Any improved physical functioning directly after the blocks? Able to walk much easier. Follow up plans and appointments were discussed with Chandrika. Chandrika was instructed to keep careful note of how the usual pain was modified by these injections. Specifically, to keep a pain diary for the next 4 hours using a numeric pain scale of 0-10 and report these results. Post procedure instruction was given as documented in the nursing documentation and having met discharge criteria, the patient was discharged from the [facility]. Based on the medial branches blocked today, if they patient has adequate relief and we are able to proceed to radiofrequency ablation, the treatment should result in the denervation of the bilateral L4-L5 and L5-S1 facet joints. We would expect to denervate a total of 4 facets during the radiofrequency ablation. COMMENTS: No apparent complications. Post-procedure pain: VAS= 1/10 Chandrika will call back with 0-4 hour post-procedure pain scores. I personally performed the entire procedure. CARMINA BELL DO, MPH ABPM&R-subspecialty board certification in Pain Medicine [facility]-[place] [facility]
== END 2024-02-12 10:55 | disposition home or self-care (01) ==
LOC: PC 10:55
PROVIDERS: PCP Family Medicine; Visit Provider Preventive Medicine Occupational Medicine
DX: M47.816 Spondylosis without myelopathy or radiculopathy, lumbar region (principal)
CPT/HCPCS: 64493; 64494; 72100; J0665; Q9967

== ENCOUNTER 2024-02-26 14:32 | Outpatient (CLI) | payer OTHER, SELFPAY ==
--- NOTE | 2024-02-26 06:00 | DI.RAD_ITS ---
Exam(s) XR PAIN CLINIC LUMBAR SP 2V EXAM: XR PAIN CLINIC LUMBAR SP 2V CLINICAL HISTORY: Lumbar Spondylosis TECHNIQUE: 2D and realtime digital imaging was performed. Radiologist not present. CONTRAST MATERIAL: None. COMPARISON: No exams were available for comparison FINDINGS: Fluoroscopy was provided for pain management therapy. Please refer to procedure report or details. Radiation Exposure Index: Ka,r=15.85 mGy IMPRESSION: As above. RADIATION DOSE DELIVERED:
[2024-02-26 14:45] VITALS: BP 122/73; PULSE 83; RESP 20; TEMP 36.7; O2SAT 97
[2024-02-26 15:39] VITALS: PULSE 90; O2SAT 96
[2024-02-26 15:40] VITALS: PULSE 85; RESP 13; O2SAT 96
[2024-02-26 15:50] VITALS: PULSE 86; RESP 13; O2SAT 95
[2024-02-26 15:57] VITALS: BP 144/88; PULSE 90; O2SAT 96
[2024-02-26] MEDS: Nerve Block Tray 1 EACH MC ×2 (16:01→16:02)
[2024-02-26] MEDS: Bupivacaine 0.5% Pres-Free 10 ML VIAL IJ (16:01)
[2024-02-26] MEDS: Omnipaque 240 MG/ML 50 ML BTL IJ (16:02)
--- NOTE | 2024-02-26 17:17 | PDOC.PAIN_ITS ---
Date of service: 02/26/24 Time of Service: 15:30 Pain Managment Procedure Note Procedure Note Procedure Note: PROCEDURE NOTE Bilateral Lumbar Medial Branch Blocks Date of Service: February 26, 2024 Patient: Chandrika Casanova Provider: Gary Bell DO, MPH Chandrikaisaac Casanova has been referred to the Pain Management Center for lumbar medial branch blocks. Pre-operative diagnosis: Lumbar Spondylosis without Myelopathy Post-operative diagnosis: Same Pre-procedure pain: VAS= 4/10 COMMENTS: She did very well with her first LMBB. She is allergic to Chloroprep. Chandrika? was interviewed and the medical records were reviewed. There were no medical, pharmacologic, radiographic or other structural contraindications to attempting fluoroscopically guided local anesthetic lumbar medial branch blocks. Risks and potential side effects were discussed. I also discussed the potential benefit(s) of the procedure with Chandrika, and voiced concerns were addressed. After Chandrika was completely informed about the procedure, the printed consent form was signed. A standard time-out procedure was performed. Chandrika was placed in the prone position on the fluoroscopy table. Automated blood pressure cuff and pulse oximeter were applied. The skin entry points for approaching the anatomic target points of the segmental medial branches of bilateral L3,L4,L5 were identified with fluoroscopy and marked. The skin at the target site area was thoroughly prepared with Alcohol. The skin was then draped. Next, a 25 gauge 3.5 spinal needle was placed under fluoroscopic guidance down on to the target point (the articular pillar) for each respective segmental medial branch. Position was confirmed in A/P and lateral views. Aspiration revealed no blood or clear fluid. Next, 0.25ml of omnipaque 240 was injected at each level. No contrast following a vascular or neural pattern was visualized under continuous fluoroscopy. Next, 0.25 ml of preservative-free 0.5% bupivicaine was injected at each level. There was no unusual discomfort expressed by Chandrika. The needles were withdrawn without difficulty. (49 mls of Omnipaque was wasted) Chandrika was observed and was without hemodynamic, neurologic, or allergic reactions.? Fluoroscopic images were digitally archived. Provacative testing using the Modified Gilmore's facet loading test- Left side Right Side Directly before the block VAS (0-10) = 4/10 VAS (0-10) = 4/10 Five minutes after the block VAS (0-10) = 0/10 VAS (0-10) = 0/10 Percentage relief obtained with this diagnostic block 100% 100% Any improved physical functioning directly after the blocks? Able to move in all directions without low back pain. Follow up plans and appointments were discussed with Chandrika. Chandrika was instructed to keep careful note of how the usual pain was modified by these injections. Specifically, to keep a pain diary for the next 4 hours using a numeric pain scale of 0-10 and report these results. Post procedure instruction was given as documented in the nursing documentation and having met discharge criteria, the patient was discharged from the [facility]. Based on the medial branches blocked today, if they patient has adequate relief and we are able to proceed to radiofrequency ablation, the treatment should result in the denervation of the bilateral L4-L5 and L5-S1 facet joints. We would expect to denervate a total of 4 facets during the radiofrequency ablation. COMMENTS: No apparent complications. Post-procedure pain: VAS= 0/10 Chandrika will call back with 0-4 hour post-procedure pain scores. I personally performed the entire procedure. GARY BELL DO, MPH ABPM&R-subspecialty board certification in Pain Medicine [facility]-[place] [facility] Management
== END 2024-02-26 14:33 | disposition home or self-care (01) ==
PROVIDERS: PCP Family Medicine; Visit Provider Preventive Medicine Occupational Medicine
DX: M47.816 Spondylosis without myelopathy or radiculopathy, lumbar region (principal)
CPT/HCPCS: 64493; 64494; 72100; J0665; Q9967

== ENCOUNTER 2024-03-11 03:49 | Outpatient (CLI) | payer OTHER, SELFPAY ==
[2024-03-11 13:56] LABS: Anion Gap 12.9 mmol/L (3-11); BUN 27 mg/dL (7-18); CO2 22.1 mmol/L (21.0-32.0); CREATININE 0.9 mg/dL (0.55-1.02); Calcium 9.5 mg/dL (8.5-10.1); Chloride 104 mmol/L (98-107); Estimated GFR 73.19 (mL/min/1.73m2); Glucose 209 mg/dL (74-106); Potassium 3.8 mmol/L (3.5-5.1); Sodium 139 mmol/L (136-145)
[2024-03-11 14:02] LABS: COMMENT (LAB VIEW ONLY) 55.63 mg/dL; Microalb ug/mg Crea 14.2 ug/mg Cr
== END 2024-03-11 03:50 | disposition home or self-care (01) ==
PROVIDERS: PCP Family Medicine; Visit Provider Family Medicine
DX: E13.9 Other specified diabetes mellitus without complications (principal)
CPT/HCPCS: 36415; 80048; 82043; 82570

== ENCOUNTER 2024-04-21 11:06 | Inpatient (IN) | payer OTHER, SELFPAY ==
[2024-04-21] VITALS (24 sets, daily range): BP systolic 118–160; BP diastolic 79–89; PULSE 85–97; RESP 12–20; TEMP 36.1–37; O2SAT 93–99
--- NOTE | 2024-04-21 11:15 | DI.CT_ITS ---
Exam(s) CT CHEST PE ABD PELVIS W EXAM: CT CHEST PE ABD PELVIS W CLINICAL HISTORY: SOB on exertion, LLQ abd pain. TECHNIQUE: Imaging Protocol: Axial CT angiography was performed with multi-slice acquisition and m ulti-planar and/or 3D reconstructions. CONTRAST MATERIAL: Intravenous: Omnipaque 350 Contrast volume:100 ml Oral: None COMPARISON: No exams were available for comparison FINDINGS: CHEST: PULMONARY ARTERIES: There are no intra-arterial filling defects to suggest the presence of acute pulm onary emboli. LUNGS: There is no evidence of pulmonary infarction.No pleural effusions. Relatively symmetrical inc reased markings in both lungs consistent with air trapping. There is a small 2-3 millimeter nodule i n the left upper lobe. MEDIASTINUM: There is no hilar nor mediastinal adenopathy. Visualized thyroid unremarkable. CARDIAC: Heart size is normal. There is no pericardial effusion. There is no significant shift of t he interventricular septum.Thoracic aorta appears unremarkable. Normal size. No dissection OSSEOUS: No significant osseous lesions.No fractures.. ABDOMEN: There is no ascites. No evidence of bowel obstruction, free air, nor abscess. LIVER: There are no focal hepatic lesions nor dilatation of intrahepatic ducts. GALLBLADDER/BILIARY: No obvious gallbladder pathology. CBD is not dilated. PANCREAS: No evidence of pancreatic mass nor dilatation of the pancreatic duct. SPLEEN: Spleen is not enlarged. There are no intrasplenic lesions. Splenic and portal veins are warren nt. ADRENALS: There are no significant adrenal masses. KIDNEYS:Right kidney unremarkable. There is a benign cysts in left kidney lateral cortex measuring 2 .8 x 2.4 cm. This is a benign cyst and does not require further workup. Smaller sub cm size cyst is noted lower down anterior cortex of the left kidney. There is also a small nonobstructive [address] calculus in left kidney evident. No hydronephrosis. Ureters are not dilated. Bladder and lower pelvis partially obscured by beam hardening artifact from right hip prosthesis. No solid renal mass es.. ABDOMINAL AORTA: Abdominal aorta is not enlarged. LYMPH NODES: There is no retroperitoneal or para-aortic adenopathy. ABDOMINAL WALL: Subcutaneous streaking and skin thickening noted symmetrically over the anterior wall of the abdomen both sides probably injection sites versus symmetrical cellulitis. There are no drai nable subcutaneous fluid collections. No gas in the subcutaneous tissues evident GI: Fluid-filled small bowel loops noted in left side of the abdomen which exhibit diameter 2.5 cm, u pper normal. Transition point appears to be in the mid abdomen level. Distal small bowel loops appe ar unremarkable. PELVIS: LYMPH NODES: There is no intrapelvic nor inguinal adenopathy. GI: No evidence of appendicitis.No evidence of sigmoid diverticulitis. URINARY BLADDER: Not distended but obscured by beam hardening artifact from right hip prosthesis. REPRODUCTIVE: Uterus size age-appropriate. There are dilated veins around the uterus which drain int o slightly prominent left gonadal vein which itself drains into the left renal vein which itself is n ot occluded. There is a pessary in the upper vagina. There are no abnormal adnexal masses. No free fluid in the pelvis. OSSEOUS: No significant osseous lesions. No fractures. Right hip prosthesis noted. IMPRESSION: 1. No evidence of acute pulmonary emboli nor pulmonary infarction. 2. There are relatively symmetrical increased markings in both lower lobes which may just represent a ir trapping. There are no associated pleural effusions. No intrathoracic adenopathy evident. No br onchiectasis. 3. There are slightly dilated fluid-filled small bowel loops in the central-left side of the abdomen with normal diameter more distal small bowel loops. Either ileus versus developing small bowel obstr uction. The large bowel-colon is partially collapsed. Correlation with clinical recommended. The s tomach and duodenum are not distended 4. Pelvic congestion syndrome incidentally noted. 5. Pessary noted in the upper vagina. Called by myself to ER physician on 04/21/2024 at 1:25 p.m. RADIATION DOSE DELIVERED: 372.33mGy.cm Total DLP DATA REPOSITORY: All CT scans at this facility are submitted to the National Radiology Data Registry (NRDR) Dose Index Registry (DIR) with the [employer] (ACR). RADIATION OPTIMIZATION: All CT scans at this facility use at least one of these dose optimization te chniques: automated exposure control; mA and/or kV adjustment per patient size (includes targeted exa ms where dose is matched to clinical indication); or iterative reconstruction.
--- NOTE | 2024-04-21 11:15 | RT.EKG_ITS ---
APPROVED REPORT Exam: Resting ECG Reason for Exam: SOB Patient Location: E HR:93 bpm ECG Measurements Heart Rate 93 AXIS UT 186 P 65 QRSd 91 QRS 66 QT 378 T 9 QTc 471 Conclusion Sinus rhythm, rate 93 No interval abnormalities or ectopy No STEMI Q wave aVL No priors available for comparison
[2024-04-21 11:45] LABS: Abs Immature Grans 0.02 10^3/uL (0.0-0.06); Absolute Basophil Count 0.03 10^3/uL (0.0-0.2); Absolute Eosinophil Count 0.16 10^3/uL (0.0-0.7); Absolute Lymphocyte Count 1.23 10^3/uL (1.2-3.4); Absolute Monocyte Count 0.71 10^3/uL (0.1-0.8); Absolute Neutrophil Count 3.25 10^3/uL (1.2-6.7); Basophils % 0.6 %; HCT 48.9 % (36.0-46.0); HGB 16.2 g/dL (11.2-15.7); Immature Grans % 0.4 %; Lymphocytes % 22.8 %; MCH 29.7 pg (27.0-33.0); MCHC 33.1 % (32.0-36.0); MCV 90 fL (80-95); MPV 9.5 fL (8.0-11.0); Monocytes % 13.1 %; Neutrophils % 60.1 %; Platelet Count 177 10^3/uL (130-400); RBC 5.45 10^6/uL (3.93-5.22); RDW 12.6 % (11.7-14.6); RDW-SD 41.4 fL
[2024-04-21] MEDS: Normal Saline Flush 10 ML SYR IVP ×2 (11:56→20:00)
[2024-04-21 12:04] LABS: ALT 45 U/L (14-59); AST 32 U/L (15-37); Albumin 3.6 g/dL (3.4-5.0); Alkaline Phosphatase 95 U/L (46-116); Anion Gap 9.1 mmol/L (3-11); BUN 20 mg/dL (7-18); Bilirubin, Total 0.74 mg/dL (0.2-1.0); CO2 25.9 mmol/L (21.0-32.0); Chloride 101 mmol/L (98-107); Estimated GFR 64.49 (mL/min/1.73m2); Glucose 109 mg/dL (74-106); Potassium 3.6 mmol/L (3.5-5.1); Sodium 136 mmol/L (136-145)
[2024-04-21 12:05] LABS: Troponin I < 4 ng/L (<or=51)
[2024-04-21 12:11] LABS: Lipase 21 U/L (16-77)
[2024-04-21] MEDS: Normal Saline - Diluent 50 ML VIAL IJ (12:44)
[2024-04-21 12:46] LABS: Bilirubin Negative (Negative); Blood Negative (Negative); Clarity Sl Cloudy (Clear); Glucose >=1000 mg/dL (Negative); Ketones 15 mg/dL (Negative); Leukocyte Esterase Negative (Negative); Nitrite Negative (Negative); Urobilinogen 0.2 mg/dL (Up to 0.2); pH 5.5 (5-8)
[2024-04-21] MEDS: Omnipaque 350 MG/ML 100 ML BTL IJ (12:46)
[2024-04-21 13:16] LABS: Bacteria Few HPF (Negative); C & S Indicated? No; Crystals Negative HPF (Negative); Epithelial Cells Few HPF (Negative); Mucus Negative (Negative); RBC 0-2 HPF (0-2); WBC 0-2 HPF (0-5)
[2024-04-21 13:51] LABS: COVID-19 PCR Negative (Negative); Influenza A PCR Negative (Negative); Influenza B PCR Negative (Negative); RSV PCR Negative (Negative)
[2024-04-21 13:52] LABS: Source Nasopharynx
[2024-04-21] MEDS: HYDROmorphone 2 MG/ML SYR 0.5 MG IVP (13:53)
[2024-04-21] MEDS: Ondansetron 4 MG/2 ML VIAL IVP ×2 (13:54→23:38)
[2024-04-21] MEDS: Lactated Ringers 1,000 ML 1000 ML IV (13:54)
--- NOTE | 2024-04-21 14:15 | W.ED.GENAD ---
Discharge Plan Discharge Details Chief Complaint: Abd Prob Primary Care Provider: Genie Abdullahi ED Provider: Maris Arriaga Home Meds and New Rx's Prescriptions: No Action (DME) Orthotic See Rx Instructions .Route .MEDSUPPLY Qty: 1 0RF Rx Instructions: She needs some sort of shoe lift as she is pirouetting of the much longer left leg. aspirin [Adult Aspirin Regimen] 81 mg tablet,delayed release (DR/EC) 81 mg PO DAILY ferrous sulfate [iron] 325 mg (65 mg iron) tablet 325 mg PO DAILY Patient Comments: Blood test resulted in low iron level Estring 2 mg (7.5 mcg /24 hour) ring 1 vag ring VG [id number] Qty: 1 4RF Patient Comments: Pt states this is not in right now.HE insulin lispro [Humalog U-100 Insulin] 100 unit/mL solution 1 sliding scale dose subcut USEASDIRECTD indomethacin 25 mg capsule 25 mg PO BID PRN Rx Instructions: administer with food or milk-migraines ascorbic acid (vitamin C) [Vitamin C With Risa Hips] 1,000 MG tablet 1,000 mg PO DAILY cyanocobalamin (vitamin B-12) [Vitamin B-12] 1,000 MCG tablet 1,000 mcg PO DAILY lisinopril 5 MG tablet 5 mg PO DAILY Ca-D3-mag qj-dubj-ioa-davey-bor 1 EACH tablet,chewable 1 ea PO DAILY omeprazole 20 MG capsule,delayed release(DR/EC) 20 mg PO DAILY rosuvastatin [Crestor] 20 MG tablet 20 mg PO QPM celecoxib [Celebrex] 200 mg capsule 400 mg PO DAILY duloxetine 20 mg Capsule, Delayed Rel Sprinkle 20 mg PO DAILY Invokana 100 mg tablet 100 mg PO DAILY HPI General Mode of arrival: ambulatory. Date/Time Provider Initiated Documentation: 04/21/24 11:09. Limitations to Documentation: no limitations. Information obtained by: patient and old records reviewed. HPI Narrative: HPI: This is a 58-year-old female patient with a past medical history significant for appendectomy, GERD, hypertension, hyperlipidemia, who was sent from urgent care for evaluation of abdominal pain and shortness of breath. The patient reports that for the last few weeks she has noted worsening shortness of breath on exertion, has not experienced cough, upper respiratory infectious symptoms, chest pain, or syncope. She reports that what prompted her to seek care today, however, is that she developed abdominal tenderness. urgent care noted the patient to have left lower quadrant abdominal tenderness, concern for diverticulitis, and sent her to our emergency department for further evaluation. The patient reports that she has not had fevers or chills, has not noted blood in her vomit or her stool, has not had dysuria. She has had difficulty maintaining p.o. intake due to her nausea and discomfort. Has not tried any medications today for management of the symptoms. Exam: Gen: Awake and alert, in no apparent distress HEENT: Non-icteric sclera Neck: Supple Lungs: No apparent respiratory distress, normal respiratory effort. Lung sounds clear and equal bilaterally without wheezes, rhonchi, rales CV: Appears well perfused, heart with regular rate and rhythm, no murmurs auscultated Abdomen: Non-distended, soft, tender to palpation primarily in the left lower quadrant but generalized tenderness is appreciated throughout, with no rigidity, rebound, or guarding MSK: Moves 4 extremities without apparent limitation in ROM Skin: Visualized skin without rashes, cyanosis. Neuro: Normal Gait, no obvious focal deficits or facial asymmetry. Speaks in full, clear sentences. Psych: Appropriate for situation. MDM: This is a 58-year-old female patient presenting for evaluation of shortness of breath and abdominal pain. I considered URI pneumonia, pneumothorax, pulmonary edema, reactive airway disease exacerbation, pulmonary embolism, ACS, heart failure, and other etiologies of her shortness of breath. Regarding her abdominal pain my differential includes but is not limited to diverticulitis, bowel obstruction, pancreatitis, cholelithiasis, cholecystitis, hepatitis. The patient has no urinary symptoms to significantly increase my concern for urinary tract infection or nephrolithiasis, and her pattern of pain is less concerning for aortic aneurysm or mesenteric ischemia. We will obtain laboratory studies to include CBC, CMP, lipase, UA, and will proceed with CT scans to include a CT pulmonary embolism study as well as a CT abdomen pelvis, given that the patient will require abdominal imaging anyways. I provided her with medications for management of pain, nausea, and IV fluids for rehydration. ED Course: I independently interpreted the laboratory studies, which show no significant leukocytosis, anemia, or thrombocytopenia. The chemistry panel is without evidence of electrolyte abnormality, kidney dysfunction, or liver injury. BUN to creatinine ratio is exactly 22 1, which can be seen with prerenal azotemia, for which she has already been rehydrated. Lipase is low, troponin is negative, COVID testing negative, UA with glucosuria but no other concerning findings. Independently reviewed the patient's CT imaging, and discussed the case with the radiologist, who notes bilateral air trapping but no significant pulmonary findings to explain the patient's dyspnea on exertion. Additionally, he notes an early bowel obstruction with the dilation of the jejunum and a transition point in the pelvis. These findings were shared with the patient, and I reached out to Dr. Martinez with general surgery, who recommended NG tube and Gastrografin, which was performed. The patient remained hemodynamically appropriate and without clinical decompensation while under my care, [facility] of [facility] without incident. Maris Arriaga MD Related Data Home Medications ?Medication ?Instructions ?Recorded ?Confirmed omeprazole 20 mg capsule,delayed 20 mg PO DAILY 03/25/15 04/21/24 release Ca 600 mg-D3 400 unit-mag ox 40 1 ea PO DAILY 04/29/17 04/21/24 [id number]-Mn-boron chewable tablet ascorbic acid (vitamin C) 1,000 mg 1,000 mg PO DAILY 04/29/17 04/21/24 tablet (Vitamin C With Risa Hips) cyanocobalamin (vitamin B-12) 1,000 mcg PO DAILY 04/29/17 04/21/24 1,000 mcg tablet (Vitamin B-12) lisinopril 5 mg tablet 5 mg PO DAILY 04/29/17 04/21/24 rosuvastatin 20 mg tablet (Crestor) 20 mg PO QPM 01/02/18 04/21/24 insulin lispro 100 unit/mL 1 sliding scale dose subcut 05/24/20 04/21/24 subcutaneous solution (Humalog USEASDIRECTD U-100 Insulin) celecoxib 200 mg capsule (Celebrex) 400 mg PO DAILY 07/20/21 04/21/24 indomethacin 25 mg capsule 25 mg PO BID PRN 11/29/21 04/21/24 Orthotic #1 ea 01/03/22 04/21/24 duloxetine 20 mg capsule,delayed 20 mg PO DAILY 03/21/22 04/21/24 release sprinkle aspirin 81 mg tablet,delayed 81 mg PO DAILY 02/22/23 04/21/24 release (Adult Aspirin Regimen) canagliflozin 100 mg tablet 100 mg PO DAILY 09/11/23 04/21/24 (Invokana) estradiol 2 mg (7.5 mcg/24 hour) 1 vag ring vaginal [id number] #1 ea 01/10/24 04/21/24 vaginal ring (Estring) ferrous sulfate 325 mg (65 mg 325 mg PO DAILY Restless Leg 01/10/24 04/21/24 iron) tablet (iron) Syndrom/Tiredness Previous Rx's ?Medication ?Instructions ?Recorded Orthotic #1 ea 01/03/22 estradiol 2 mg (7.5 mcg/24 hour) 1 vag ring vaginal [id number] #1 ea 01/10/24 vaginal ring (Estring) Allergies Allergy/AdvReac Type Severity Reaction Status Date / Time cephalexin monohydrate (From Allergy Intermediate RASH Verified 04/21/24 11:13 Keflex) chlorhexidine gluconate Allergy Intermediate Skin Rash Verified 04/21/24 11:13 (From Hibiclens) sulfamethoxazole (From Allergy Intermediate RASH Verified 04/21/24 11:13 Bactrim) trimethoprim (From Bactrim) Allergy Intermediate RASH Verified 04/21/24 11:13 adhesive Allergy Unknown Skin Rash Verified 04/21/24 11:13 General Stated Complaint: Abd Prob MIKEY: 3 Course Vital Signs Vital signs: Vital Signs Temperature 37.0 C 04/21/24 11:08 Pulse 87 04/21/24 11:08 Respiratory Rate 20 04/21/24 11:08 Blood Pressure 137/87 04/21/24 11:08 Pulse Oximetry 98 04/21/24 11:08 Temperature 37 C 04/21/24 11:39 Temperature Source Core 04/21/24 11:08 Pulse 96 H 04/21/24 13:40 Pulse Rhythm Regular 04/21/24 13:40 Pulse Strength Normal 04/21/24 13:40 Respiratory Rate 14 04/21/24 13:40 Respiratory Effort Normal 04/21/24 13:40 Respiratory Depth Normal 04/21/24 13:40 Respiratory Pattern Normal 04/21/24 13:40 Blood Pressure 118/81 04/21/24 13:40 Blood Pressure Mean 93 04/21/24 13:40 Blood Pressure Position Supine 04/21/24 13:40 Pulse Oximetry 97 04/21/24 13:40 Oxygen Delivery Method Room Air 04/21/24 13:40 Oxygen Flow Rate 0 04/21/24 13:40 Pain Level 6 04/21/24 13:53 Lab/Test Results Lab/Test Results: Laboratory Tests Range/Units 04/21/24 04/21/24 04/21/24 11:23 11:32 12:24 WBC (4.4-10.8) 10^3/uL 5.40 RBC (3.93-5.22) 10^6/uL 5.45 H Hgb (11.2-15.7) g/dL 16.2 H Hct (36.0-46.0) % 48.9 H MCV (80-95) fL 90 MCH (27.0-33.0) pg 29.7 MCHC (32.0-36.0) % 33.1 RDW (11.7-14.6) % 12.6 Plt Count (130-400) 10^3/uL 177 MPV (8.0-11.0) fL 9.5 Immature Gran % % 0.4 Neutrophils % % 60.1 Lymphocytes % % 22.8 Monocytes % % 13.1 Eosinophils % % 3.0 Basophils % % 0.6 Nucleated RBC % (0.0-0.3) % 0.0 Absolute Neutrophils (1.2-6.7) 10^3/uL 3.25 Absolute Lymphocytes (1.2-3.4) 10^3/uL 1.23 Absolute Monocytes (0.1-0.8) 10^3/uL 0.71 Absolute Eosinophils (0.0-0.7) 10^3/uL 0.16 Absolute Basophils (0.0-0.2) 10^3/uL 0.03 Sodium (136-145) mmol/L 136 Potassium (3.5-5.1) mmol/L 3.6 Chloride (98-107) mmol/L 101 Carbon Dioxide (21.0-32.0) mmol/L 25.9 Anion Gap (3-11) mmol/L 9.1 BUN (7-18) mg/dL 20 H Creatinine (0.55-1.02) mg/dL 1.0 Est GFR (CKD-EPI 2020) (mL/min/1.73m2) 64.49 Glucose (74-106) mg/dL 109 H Calcium (8.5-10.1) mg/dL 9.0 Magnesium (1.8-2.4) mg/dL 2.0 Total Bilirubin (0.2-1.0) mg/dL 0.74 AST (15-37) U/L 32 ALT (14-59) U/L 45 Alkaline Phosphatase (46-116) U/L 95 Troponin I (<or=51) ng/L < 4 Cancelled Total Protein (6.4-8.2) g/dL 7.0 Albumin (3.4-5.0) g/dL 3.6 Lipase (16-77) U/L 21 Urine Color (Yellow) Urine Clarity (Clear) Urine pH (5-8) Ur Specific [place] (1.005-1.025) Urine Protein (Neg-Trace) mg/dL Urine Ketones (Negative) mg/dL Urine Blood (Negative) Urine Nitrite (Negative) Urine Bilirubin (Negative) Urine Urobilinogen (Up to 0.2) mg/dL Ur Leukocyte Esterase (Negative) Urine RBC (0-2) HPF Urine WBC (0-5) HPF Ur Epithelial Cells (Negative) HPF Urine Crystals (Negative) HPF Urine Bacteria (Negative) HPF Urine Mucus (Negative) Ur Culture Indicated? Urine Glucose (Negative) mg/dL COVID-19 Source SARS-CoV-2 (PCR) (Negative) Influenza Type A (PCR) (Negative) Influenza Type B (PCR) (Negative) RSV (PCR) (Negative) Range/Units 04/21/24 04/21/24 04/21/24 12:34 13:08 14:24 WBC (4.4-10.8) 10^3/uL RBC (3.93-5.22) 10^6/uL Hgb (11.2-15.7) g/dL Hct (36.0-46.0) % MCV (80-95) fL MCH (27.0-33.0) pg MCHC (32.0-36.0) % RDW (11.7-14.6) % Plt Count (130-400) 10^3/uL MPV (8.0-11.0) fL Immature Gran % % Neutrophils % % Lymphocytes % % Monocytes % % Eosinophils % % Basophils % % Nucleated RBC % (0.0-0.3) % Absolute Neutrophils (1.2-6.7) 10^3/uL Absolute Lymphocytes (1.2-3.4) 10^3/uL Absolute Monocytes (0.1-0.8) 10^3/uL Absolute Eosinophils (0.0-0.7) 10^3/uL Absolute Basophils (0.0-0.2) 10^3/uL Sodium (136-145) mmol/L Potassium (3.5-5.1) mmol/L Chloride (98-107) mmol/L Carbon Dioxide (21.0-32.0) mmol/L Anion Gap (3-11) mmol/L BUN (7-18) mg/dL Creatinine (0.55-1.02) mg/dL Est GFR (CKD-EPI 2020) (mL/min/1.73m2) Glucose (74-106) mg/dL Calcium (8.5-10.1) mg/dL Magnesium (1.8-2.4) mg/dL Total Bilirubin (0.2-1.0) mg/dL AST (15-37) U/L ALT (14-59) U/L Alkaline Phosphatase (46-116) U/L Troponin I (<or=51) ng/L Cancelled Total Protein (6.4-8.2) g/dL Albumin (3.4-5.0) g/dL Lipase (16-77) U/L Urine Color (Yellow) Yellow Urine Clarity (Clear) Sl Cloudy Urine pH (5-8) 5.5 Ur Specific [place] (1.005-1.025) 1.010 Urine Protein (Neg-Trace) mg/dL Negative Urine Ketones (Negative) mg/dL 15 H Urine Blood (Negative) Negative Urine Nitrite (Negative) Negative Urine Bilirubin (Negative) Negative Urine Urobilinogen (Up to 0.2) mg/dL 0.2 Ur Leukocyte Esterase (Negative) Negative Urine RBC (0-2) HPF 0-2 Urine WBC (0-5) HPF 0-2 Ur Epithelial Cells (Negative) HPF Few Urine Crystals (Negative) HPF Negative Urine Bacteria (Negative) HPF Few Urine Mucus (Negative) Negative Ur Culture Indicated? No Urine Glucose (Negative) mg/dL >=1000 H COVID-19 Source Nasopharynx SARS-CoV-2 (PCR) (Negative) Negative Influenza Type A (PCR) (Negative) Negative Influenza Type B (PCR) (Negative) Negative RSV (PCR) (Negative) Negative Medical Decision Making Quality:SDOH Health Related Social Needs: No Data to Display PFSH All Active Problems (Updated 04/21/24 @ 16:52 by Yuliya Martinez DO) SBO (small bowel obstruction) (Acute) Lumbosacral spondylosis without myelopathy (Acute) Bilateral sensorineural hearing loss (Acute) Excessive cerumen in right ear canal (Acute) Foot pain, right (Acute) Insomnia (Acute) GARRY (obstructive sleep apnea) (Chronic) 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), managed as type 1 (Acute) Medial epicondylitis of left elbow (Acute) Post-menopausal bleeding (Acute) Lower limb length difference (Acute) Iliotibial band syndrome affecting right lower leg (Acute) Arthritis of right ankle (Acute) Pain of left foot (Acute) Hip pain, right (Acute) Arthritis (Acute 04/12/14) Atrophic vaginitis (Acute 06/18/17) Elevated lipids (Acute 06/18/17) GERD (gastroesophageal reflux disease) (Acute 04/12/14) HTN (hypertension) (Acute 04/12/14) Hyperlipidemia (Acute 04/12/14) Lichen sclerosus (Acute 06/18/17) Migraine (Acute 04/12/14) Spondylosis of lumbar region without myelopathy or radiculopathy (Chronic) Medical History Neutropenia mild Neuritis of left ulnar nerve Yeast vaginitis 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 Pain due to total hip replacement Pain in hip region after hip replacement Trochanteric bursitis, right hip Bilateral hand pain TMJ (dislocation of temporomandibular joint) pt. denies this Dysmenorrhea Menorrhagia Surgical History Hx of appendectomy H/O wrist surgery S/P repair of ligament of ankle History of tonsillectomy tennis elbow surgery L Left elbow 2001 Right elbow surgery for tendonitis 2006 Uterine suspension with L partial salpingectomy 1995 Ligation of fallopian tube Total replacement of hip Right hip 2006 L5 herniated disc repair 08/2013 [facility] Colonoscopy - [facility] (03/25/15) DR.TERRY KEBEDE Family History Mother Personal history of malignant neoplasm Breast cancer Father Hyperlipidemia Sister Hodgkin's disease Other Diabetes Social History Smoking/Tobacco Use Status: Never Smoking risk assessment performed?: Yes Alcohol Intake: current Alcohol Intake frequency: holidays/special occasions only Drug use: Never Substance use type: does not use Details: uses cbd oil for leg cramps Housing: house Do you feel safe at home: Yes Do you feel safe in your relationship?: Yes History History 2 Para 1 Hx # Term Pregnancies Multiple births Hx # Pregnancies Ectopic pregnancies AB induced Hx Number of Living Children AB spontaneous
--- NOTE | 2024-04-21 14:34 | DI.RAD_ITS ---
Exam(s) XR PORTABLE CHEST AP POST LINE EXAM: XR PORTABLE CHEST AP POST LINE CLINICAL HISTORY: NG placement TECHNIQUE: 2D digital imaging was performed. COMPARISON: CT CT CHEST PE ABD PELVIS W from 04/21/2024 FINDINGS: A nasogastric tube has been inserted with tip in the fundus of the stomach. The side hole may be in the distal esophagus appears LUNGS: Apical scarring. No focal infiltrate or pulmonary edema. No pleural abnormality seen. HEART: Normal size. AORTA: Normal diameter. BONES: Unremarkable for age. Soft tissues: Unremarkable. IMPRESSION: An endotracheal tube tip projects in the fundus of the stomach. DATA REPOSITORY: RADIATION DOSE DELIVERED:
[2024-04-21] MEDS: Benzocaine 20% 60 ML CAN (14:50)
[2024-04-21] MEDS: Gastrografin 120 ML BTL PO (14:55)
--- NOTE | 2024-04-21 15:37 | NUR.NOTE ---
Nursing Note: 1455: put 120 ml of gastrograph in NG and clamped it. 1535: unclamped NG and put it back to lower intermittent wall suction and xray called to do xray
--- NOTE | 2024-04-21 15:55 | DI.RAD_ITS ---
Exam(s) XR ABDOMEN FLAT PLATE EXAM: XR ABDOMEN FLAT PLATE CLINICAL HISTORY: Bowel obstruction, eval post-gastrograffin. TECHNIQUE: 2D digital imaging was performed. COMPARISON: CR XR ABDOMEN FLAT PLATE from 11/07/[address] CHEST PE ABD PELVIS W from 04/21/2024 FINDINGS: AP supine view of the abdomen-pelvis performed following instillation of Gastrografin into the stomac h lumen via the indwelling NG tube. The stomach is not distended. Duodenum is not distended. There are left-sided jejunal loops which exhibit upper normal diameters. The opacified more distal s mall bowel loops are not dilated. The contrast has not yet reached the colon. There is contrast seen in the urinary bladder. This is from prior contrast infused CT scan performed earlier today. Right hip prosthesis incidentally noted. IMPRESSION: Upper normal diameter jejunal loops in left side of the abdomen. No obvious bowel obstruction. Michael mmend follow-up images until the contrast reaches the colon. DATA REPOSITORY: RADIATION DOSE DELIVERED:
--- NOTE | 2024-04-21 16:51 | W.PM.HP.N ---
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 Transition point appears to be in the mid abdomen level. Distal small bowel loops appear unremarkable. We will continue with NG tube decompression GI prophylaxis-Protonix and she has a history of GERD DVT prophylaxis Cover her sugars Encourage incentive spirometry NG tube can be clamped to walk Repeat x-ray in a.m. Multimodality pain program CPAP for sleep apnea Hold her lisinopril at this time. We may need to do IV beta-blockers Repeat x-ray in a.m. Continue supportive care This document was created with voice activated software and may contain errors. 60 mins spent in direct pt care and History of Present Illness Narrative: Patient presents to the ER today complaining of upper abdominal pain/diffuse pain and bloating and nausea and vomiting. She says the pain started over the weekend and became progressively worse. She notes her sugars have also been running very high over the weekend. She denies any trauma. She denies any travel outside the state. She denies any changes in medications or supplement. She denies any changes in diet or lifestyle. She has been taking all her medications that she has been instructed. She had 1 ovary removed. However she did have a ruptured appendix as a young adult. This is the first bowel obstruction she has ever had. She had a colonoscopy she thinks approximately 10 years ago and as far as she knows it was normal. Currently her pain is controlled. She appears nontoxic. She does not have a temperature. She does not have a white count. She had an NG tube placed in the ER and was given a dose of Gastrografin. 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), managed as type 1 (Acute) Medial epicondylitis of left elbow (Acute) Post-menopausal bleeding (Acute) Lower limb length difference (Acute) Iliotibial band syndrome affecting right lower leg (Acute) Arthritis of right ankle (Acute) Pain of left foot (Acute) Hip pain, right (Acute) Arthritis (Acute 04/12/14) Atrophic vaginitis (Acute 06/18/17) Elevated lipids (Acute 06/18/17) GERD (gastroesophageal reflux disease) (Acute 04/12/14) HTN (hypertension) (Acute 04/12/14) Hyperlipidemia (Acute 04/12/14) Lichen sclerosus (Acute 06/18/17) Migraine (Acute 04/12/14) Spondylosis of lumbar region without myelopathy or radiculopathy (Chronic) Medical History Neutropenia mild Neuritis of left ulnar nerve Yeast vaginitis 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 Pain due to total hip replacement Pain in hip region after hip replacement Trochanteric bursitis, right hip Bilateral hand pain TMJ (dislocation of temporomandibular joint) pt. denies this Dysmenorrhea Menorrhagia Surgical History Hx of appendectomy H/O wrist surgery S/P repair of ligament of ankle History of tonsillectomy tennis elbow surgery L Left elbow 2001 Right elbow surgery for tendonitis 2006 Uterine suspension with L partial salpingectomy 1995 Ligation of fallopian tube Total replacement of hip Right hip 2006 L5 herniated disc repair 08/2013 [facility] [place] - MAC (03/25/15) DR.TERRY KEBEDE Family History Mother Personal history of malignant neoplasm Breast cancer Father Hyperlipidemia Sister Hodgkin's disease Other Diabetes Social History Smoking/Tobacco Use Status: Never Smoking risk assessment performed?: Yes Alcohol Intake: current Alcohol Intake frequency: holidays/special occasions only Drug use: Never Substance use type: does not use Details: uses cbd oil for leg cramps Housing: house Do you feel safe at home: Yes Do you feel safe in your relationship?: Yes History History 2 Para 1 Hx # Term Pregnancies Multiple births Hx # Pregnancies Ectopic pregnancies AB induced Hx Number of Living Children AB spontaneous Meds Allergies and Home Medications Allergies Allergy/AdvReac Type Severity Reaction Status Date / Time cephalexin monohydrate (From Allergy Intermediate RASH Verified 04/21/24 11:13 Keflex) chlorhexidine gluconate Allergy Intermediate Skin Rash Verified 04/21/24 11:13 (From Hibiclens) sulfamethoxazole (From Allergy Intermediate RASH Verified 04/21/24 11:13 Bactrim) trimethoprim (From Bactrim) Allergy Intermediate RASH Verified 04/21/24 11:13 adhesive Allergy Unknown Skin Rash Verified 04/21/24 11:13 Home Medications ?Medication ?Instructions ?Recorded ?Confirmed ?Type omeprazole 20 mg capsule,delayed 20 mg PO DAILY 03/25/15 04/21/24 History release Ca 600 mg-D3 400 unit-mag ox 40 1 ea PO DAILY 04/29/17 04/21/24 History dp-[id number]-Mn-boron chewable tablet ascorbic acid (vitamin C) 1,000 mg 1,000 mg PO DAILY 04/29/17 04/21/24 History tablet (Vitamin C With Risa Hips) cyanocobalamin (vitamin B-12) 1,000 mcg PO DAILY 04/29/17 04/21/24 History 1,000 mcg tablet (Vitamin B-12) lisinopril 5 mg tablet 5 mg PO DAILY 04/29/17 04/21/24 History rosuvastatin 20 mg tablet (Crestor) 20 mg PO QPM 01/02/18 04/21/24 History insulin lispro 100 unit/mL 1 sliding scale dose subcut 05/24/20 04/21/24 History subcutaneous solution (Humalog USEASDIRECTD U-100 Insulin) celecoxib 200 mg capsule (Celebrex) 400 mg PO DAILY 07/20/21 04/21/24 History indomethacin 25 mg capsule 25 mg PO BID PRN 11/29/21 04/21/24 History Orthotic #1 ea 01/03/22 04/21/24 Rx duloxetine 20 mg capsule,delayed 20 mg PO DAILY 03/21/22 04/21/24 History release sprinkle aspirin 81 mg tablet,delayed 81 mg PO DAILY 02/22/23 04/21/24 History release (Adult Aspirin Regimen) canagliflozin 100 mg tablet 100 mg PO DAILY 09/11/23 04/21/24 History (Invokana) estradiol 2 mg (7.5 mcg/24 hour) 1 vag ring vaginal [id number] #1 ea 01/10/24 04/21/24 Rx vaginal ring (Estring) ferrous sulfate 325 mg (65 mg 325 mg PO DAILY Restless Leg 01/10/24 04/21/24 History iron) tablet (iron) Syndrom/Tiredness Exam Narrative Exam Narrative: PHYSICAL EXAM GENERAL APPEARANCE: Alert, healthy appearance, oriented, x 3,? in no acute distress HYDRATION: Well hydrated HEAD, EYES, EARS, NECK, THROAT: Head is normocephalic, pupils equal, round, reactive to light and accommodation, ocular movement intact, sclera clear and no jaundice. ?Dentition intact. LUNGS: normal respiration/normal chest excursion. ?Clear to auscultation bilaterally. ?No wheeze. ?HEART: Regular rate and rhythm. no murmurs EXTREMITY: No edema or cyanosis.? no leg pain, redness, swelling.? ABDOMEN: soft and non-tender to palpation.? mild distention. Bowel sounds are high-pitched. No peritonitis.? No hernias.? . Results Labs 04/21/24 11:32 04/21/24 11:32 Labs: Laboratory Results - last 24 hr 04/21/24 04/21/24 04/21/24 11:23 11:32 12:24 WBC 5.40 RBC 5.45 H Hgb 16.2 H Hct 48.9 H MCV 90 MCH 29.7 MCHC 33.1 RDW 12.6 Plt Count 177 MPV 9.5 Immature Gran % 0.4 Neutrophils % 60.1 Lymphocytes % 22.8 Monocytes % 13.1 Eosinophils % 3.0 Basophils % 0.6 Nucleated RBC % 0.0 Absolute Neutrophils 3.25 Absolute Lymphocytes 1.23 Absolute Monocytes 0.71 Absolute Eosinophils 0.16 Absolute Basophils 0.03 Sodium 136 Potassium 3.6 Chloride 101 Carbon Dioxide 25.9 Anion Gap 9.1 BUN 20 H Creatinine 1.0 Est GFR (CKD-EPI 2020) 64.49 Glucose 109 H Calcium 9.0 Magnesium 2.0 Total Bilirubin 0.74 AST 32 ALT 45 Alkaline Phosphatase 95 Troponin I < 4 Cancelled Total Protein 7.0 Albumin 3.6 Lipase 21 Urine Color Urine Clarity Urine pH Ur Specific [place] Urine Protein Urine Ketones Urine Blood Urine Nitrite Urine Bilirubin Urine Urobilinogen Ur Leukocyte Esterase Urine RBC Urine WBC Ur Epithelial Cells Urine Crystals Urine Bacteria Urine Mucus Ur Culture Indicated? Urine Glucose COVID-19 Source SARS-CoV-2 (PCR) Influenza Type A (PCR) Influenza Type B (PCR) RSV (PCR) 04/21/24 04/21/24 04/21/24 12:34 13:08 14:24 WBC RBC Hgb Hct MCV MCH MCHC RDW Plt Count MPV Immature Gran % Neutrophils % Lymphocytes % Monocytes % Eosinophils % Basophils % Nucleated RBC % Absolute Neutrophils Absolute Lymphocytes Absolute Monocytes Absolute Eosinophils Absolute Basophils Sodium Potassium Chloride Carbon Dioxide Anion Gap BUN Creatinine Est GFR (CKD-EPI 2020) Glucose Calcium Magnesium Total Bilirubin AST ALT Alkaline Phosphatase Troponin I Cancelled Total Protein Albumin Lipase Urine Color Yellow Urine Clarity Sl Cloudy Urine pH 5.5 Ur Specific [place] 1.010 Urine Protein Negative Urine Ketones 15 H Urine Blood Negative Urine Nitrite Negative Urine Bilirubin Negative Urine Urobilinogen 0.2 Ur Leukocyte Esterase Negative Urine RBC 0-2 Urine WBC 0-2 Ur Epithelial Cells Few Urine Crystals Negative Urine Bacteria Few Urine Mucus Negative Ur Culture Indicated? No Urine Glucose >=1000 H COVID-19 Source Nasopharynx SARS-CoV-2 (PCR) Negative Influenza Type A (PCR) Negative Influenza Type B (PCR) Negative RSV (PCR) Negative Last Vital Signs Temp 37 C 04/21/24 11:39 Pulse 89 04/21/24 15:14 Resp 12 04/21/24 15:14 BP 129/80 04/21/24 15:14 Pulse Ox 96 04/21/24 15:30 Time Spent Time spent with Patient: 55-74 minutes Time was spent: preparing to see the patient(eg.review tests), obtaining and/or reviewing separately otained hiistory, ordering medications,tests, procedures, referring, communicating with other health health care manager, indepentently interpreting results, counseling the patient, care coordination and other
--- NOTE | 2024-04-21 18:38 | W.PC.ACHO ---
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) Pain due to total hip replacement Pain in hip region after hip replacement Trochanteric bursitis, right hip Bilateral hand pain TMJ (dislocation of temporomandibular joint) Dysmenorrhea Menorrhagia (Last Reviewed 04/21/24 @ 10:27 by GUZMAN Lara) Hx of appendectomy H/O wrist surgery S/P repair of ligament of ankle History of tonsillectomy tennis elbow surgery L Uterine suspension with L partial salpingectomy Ligation of fallopian tube Total replacement of hip L5 herniated disc repair Colonoscopy - MAC (03/25/15) Most Recent Vital Signs Temperature 36.5 C 04/21/24 18:09 Temperature Source Temporal Artery Scan 04/21/24 18:09 Pulse 95 H 04/21/24 18:09 Pulse Rhythm Regular 04/21/24 13:40 Pulse Strength Normal 04/21/24 15:14 Respiratory Rate 16 04/21/24 18:09 Respiratory Effort Normal, Non-Labored 04/21/24 15:14 Respiratory Depth Normal 04/21/24 15:14 Respiratory Pattern Normal 04/21/24 15:14 Blood Pressure 148/82 H 04/21/24 18:09 Blood Pressure Mean 108 04/21/24 17:00 Blood Pressure Position Sitting 04/21/24 15:14 Pulse Oximetry 99 04/21/24 18:09 Oxygen Delivery Method Room Air 04/21/24 18:09 Oxygen Flow Rate 0 04/21/24 18:09 Pain Level 6 04/21/24 13:53 Comment vS taken upon admission 04/21/24 18:09 Allergies cephalexin monohydrate (From Keflex) Allergy (Intermediate, Verified 04/21/24 11:13) RASH chlorhexidine gluconate (From Hibiclens) Allergy (Intermediate, Verified 04/21/24 11:13) Skin Rash sulfamethoxazole (From Bactrim) Allergy (Intermediate, Verified 04/21/24 11:13) RASH trimethoprim (From Bactrim) Allergy (Intermediate, Verified 04/21/24 11:13) RASH adhesive Allergy (Unknown, Verified 04/21/24 11:13) Skin Rash Active Medications Generic Name Dose Route Start Last Admin Trade Name Freq PRN Reason Stop Dose Admin Enoxaparin Sodium 40 mg 04/21/24 18:00 04/21/24 18:16 Enoxaparin 40 Mg/0.4 Ml Syr SC Not Given Q24H DANIEL Sodium Chloride 0 ml 04/21/24 11:23 04/21/24 11:56 Normal Saline Flush 10 Ml Syr IVP 10 ml PRN PRN Administration IV IV Catheter Type [Right Peripheral IV Antecubital] IV Catheter Gauge [Right 18 Antecubital] Diet Orders Category Date Time Status Nothing Per Oral [DIET] Nutrition 04/21/24 Dinner Active Diagnostics 04/21/24 04/21/24 04/21/24 Range/Units 14:24 13:08 12:34 WBC (4.4-10.8) 10^3/uL RBC (3.93-5.22) 10^6/uL Hgb (11.2-15.7) g/dL Hct (36.0-46.0) % MCV (80-95) fL MCH (27.0-33.0) pg MCHC (32.0-36.0) % RDW (11.7-14.6) % Plt Count (130-400) 10^3/uL MPV (8.0-11.0) fL Immature Gran % % Neutrophils % % Lymphocytes % % Monocytes % % Eosinophils % % Basophils % % Nucleated RBC % (0.0-0.3) % Absolute Neutrophils (1.2-6.7) 10^3/uL Absolute Lymphocytes (1.2-3.4) 10^3/uL Absolute Monocytes (0.1-0.8) 10^3/uL Absolute Eosinophils (0.0-0.7) 10^3/uL Absolute Basophils (0.0-0.2) 10^3/uL Sodium (136-145) mmol/L Potassium (3.5-5.1) mmol/L Chloride (98-107) mmol/L Carbon Dioxide (21.0-32.0) mmol/L Anion Gap (3-11) mmol/L BUN (7-18) mg/dL Creatinine (0.55-1.02) mg/dL Est GFR (CKD-EPI 2020) (mL/min/1.73m2) Glucose (74-106) mg/dL Calcium (8.5-10.1) mg/dL Magnesium (1.8-2.4) mg/dL Total Bilirubin (0.2-1.0) mg/dL AST (15-37) U/L ALT (14-59) U/L Alkaline Phosphatase (46-116) U/L Troponin I Cancelled (<or=51) ng/L Total Protein (6.4-8.2) g/dL Albumin (3.4-5.0) g/dL Lipase (16-77) U/L Urine Color Yellow (Yellow) Urine Clarity Sl Cloudy (Clear) Urine pH 5.5 (5-8) Ur Specific [place] 1.010 (1.005-1.025) Urine Protein Negative (Neg-Trace) mg/dL Urine Ketones 15 H (Negative) mg/dL Urine Blood Negative (Negative) Urine Nitrite Negative (Negative) Urine Bilirubin Negative (Negative) Urine Urobilinogen 0.2 (Up to 0.2) mg/dL Ur Leukocyte Esterase Negative (Negative) Urine RBC 0-2 (0-2) HPF Urine WBC 0-2 (0-5) HPF Ur Epithelial Cells Few (Negative) HPF Urine Crystals Negative (Negative) HPF Urine Bacteria Few (Negative) HPF Urine Mucus Negative (Negative) Ur Culture Indicated? No Urine Glucose >=1000 H (Negative) mg/dL COVID-19 Source Nasopharynx SARS-CoV-2 (PCR) Negative (Negative) Influenza Type A (PCR) Negative (Negative) Influenza Type B (PCR) Negative (Negative) RSV (PCR) Negative (Negative) 04/21/24 04/21/24 04/21/24 Range/Units 12:24 11:32 11:23 WBC 5.40 (4.4-10.8) 10^3/uL RBC 5.45 H (3.93-5.22) 10^6/uL Hgb 16.2 H (11.2-15.7) g/dL Hct 48.9 H (36.0-46.0) % MCV 90 (80-95) fL MCH 29.7 (27.0-33.0) pg MCHC 33.1 (32.0-36.0) % RDW 12.6 (11.7-14.6) % Plt Count 177 (130-400) 10^3/uL MPV 9.5 (8.0-11.0) fL Immature Gran % 0.4 % Neutrophils % 60.1 % Lymphocytes % 22.8 % Monocytes % 13.1 % Eosinophils % 3.0 % Basophils % 0.6 % Nucleated RBC % 0.0 (0.0-0.3) % Absolute Neutrophils 3.25 (1.2-6.7) 10^3/uL Absolute Lymphocytes 1.23 (1.2-3.4) 10^3/uL Absolute Monocytes 0.71 (0.1-0.8) 10^3/uL Absolute Eosinophils 0.16 (0.0-0.7) 10^3/uL Absolute Basophils 0.03 (0.0-0.2) 10^3/uL Sodium 136 (136-145) mmol/L Potassium 3.6 (3.5-5.1) mmol/L Chloride 101 (98-107) mmol/L Carbon Dioxide 25.9 (21.0-32.0) mmol/L Anion Gap 9.1 (3-11) mmol/L BUN 20 H (7-18) mg/dL Creatinine 1.0 (0.55-1.02) mg/dL Est GFR (CKD-EPI 2020) 64.49 (mL/min/1.73m2) Glucose 109 H (74-106) mg/dL Calcium 9.0 (8.5-10.1) mg/dL Magnesium 2.0 (1.8-2.4) mg/dL Total Bilirubin 0.74 (0.2-1.0) mg/dL AST 32 (15-37) U/L ALT 45 (14-59) U/L Alkaline Phosphatase 95 (46-116) U/L Troponin I Cancelled < 4 (<or=51) ng/L Total Protein 7.0 (6.4-8.2) g/dL Albumin 3.6 (3.4-5.0) g/dL Lipase 21 (16-77) U/L Urine Color (Yellow) Urine Clarity (Clear) Urine pH (5-8) Ur Specific [place] (1.005-1.025) Urine Protein (Neg-Trace) mg/dL Urine Ketones (Negative) mg/dL Urine Blood (Negative) Urine Nitrite (Negative) Urine Bilirubin (Negative) Urine Urobilinogen (Up to 0.2) mg/dL Ur Leukocyte Esterase (Negative) Urine RBC (0-2) HPF Urine WBC (0-5) HPF Ur Epithelial Cells (Negative) HPF Urine Crystals (Negative) HPF Urine Bacteria (Negative) HPF Urine Mucus (Negative) Ur Culture Indicated? Urine Glucose (Negative) mg/dL COVID-19 Source SARS-CoV-2 (PCR) (Negative) Influenza Type A (PCR) (Negative) Influenza Type B (PCR) (Negative) RSV (PCR) (Negative) [id number] Documentation Fingerstick Glucose Start: 04/21/24 16:48 Freq: .Q6H Status: Active Protocol: Activity Type Activity Date Activity User E-sign Co-sign Detail Recorded Client Recorded Date Recorded By Document 04/21/24 18:14 LELA DAJOSH(3) [id number] 04/21/24 18:14 LELA DAOLAFON(4) Intake and Output - 24 Hour Total 04/21/24 11:06 thru 04/21/24 18:19 Intake Total 1120 Balance 1120 Weight 80.1 kg Intake: IV 1000 Intake, Tube Feeding Amount 120 Falls Risk Assessment History of Falls No History 04/21/24 11:39 Contributing Factors No Factors 04/21/24 11:39 Ambulatory Aids Independent 04/21/24 11:39 Tubes/Lines None 04/21/24 11:39 Gait Evaluation No gait disturbance 04/21/24 11:39 Cognition No cognitive impairment 04/21/24 11:39 Fall Total Score 0 04/21/24 11:39 Level of Risk Standard/Low Risk 04/21/24 11:39 Problems (Last Reviewed 04/21/24 @ 10:27 by GUZMAN Lara) SBO (small bowel obstruction) (Acute) GARRY (obstructive sleep apnea) (Chronic) 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 1535: unclamped NG and put it back to lower intermittent wall suction and xray called to do xray Initialized on 04/21/24 15:37 - END OF NOTE v v v v v v v v v Sending and/or Receiving Nurses: Please use comment section below to note any information pertinent to the patient hand-off not included above. Information / Comments: A/O x4, c/o ABD pain and nausea x3 days and no BM, did have small episode of loose stool in ER, [address]f N[address] in left nare and to low int suction, pt states she feels better, no nausea or pain at this time, VS WNL. makes needs known, ambulating ind in room Report received from: LINDA Lewis
[2024-04-21] MEDS: Pantoprazole 40 MG VIAL IVP (20:00)
[2024-04-21] MEDS: Lactated Ringers 1,000 ML 82 ML IV (21:20)
[2024-04-22] VITALS (8 sets, daily range): BP systolic 116–137; BP diastolic 55–81; PULSE 110–144; RESP 14–18; TEMP 35.7–36.9; O2SAT 93–98
--- NOTE | 2024-04-22 05:19 | NUR.NOTE ---
NG tube check, I was called to assist at bedside to assess NG tube. Most recent X-ray demonstrated adequate placement into the tip of the stomach. NG tube was indeed on low intermittent suction. pt has been up to ambulate and clamped tonight. I did flush the patients NG tube with 30ml of water, as there was concern for patency. NG tube did flush without resistance, NG tube was replaced to low intermittent suction and did return approximately 30ml of water. NG tube dwells in pts right nare, tape is securing tube in place. at approximately 58cm Nursing Note:
[2024-04-22] MEDS: Chloraseptic Spray 117 ML BTL MM (05:28)
--- NOTE | 2024-04-22 07:00 | DI.RAD_ITS ---
Exam(s) XR ABDOMEN FLAT PLATE EXAM: XR ABDOMEN FLAT PLATE CLINICAL HISTORY: sbo. TECHNIQUE: 2D digital imaging was performed. COMPARISON: CR XR ABDOMEN FLAT PLATE from 04/21/2024 FINDINGS: Single AP supine view the abdomen pelvis: Ng-tube is again noted this stomach in the stomach is not distended. All of the Gastrografin has progressed to the level:. Colon is not distended. There are no dilated small bowel loops on today's image IMPRESSION: As above. No evidence of small-bowel obstruction. DATA REPOSITORY: RADIATION DOSE DELIVERED:
[2024-04-22 07:10] LABS: Anion Gap 10.7 mmol/L (3-11); BUN 18 mg/dL (7-18); CO2 23.3 mmol/L (21.0-32.0); CREATININE 0.8 mg/dL (0.55-1.02); Calcium 8.7 mg/dL (8.5-10.1); Chloride 105 mmol/L (98-107); Glucose 91 mg/dL (74-106); Magnesium 1.7 mg/dL (1.8-2.4); Potassium 3.6 mmol/L (3.5-5.1); Sodium 139 mmol/L (136-145)
--- NOTE | 2024-04-22 08:13 | NUR.NOTE ---
pt verbalized her heart feels like its beating out of her chest, with nausea and right sided shoulder pain. Lencho PHIPPS MD notfied. Nursing Note:
[2024-04-22] MEDS: Lisinopril 5 MG TAB PO (08:17)
[2024-04-22] MEDS: Normal Saline Flush 10 ML SYR IVP (08:17)
[2024-04-22] MEDS: Ondansetron 4 MG/2 ML VIAL IVP (08:26)
--- NOTE | 2024-04-22 08:30 | RT.EKG_ITS ---
APPROVED REPORT Exam: Resting ECG Reason for Exam: Provider at bedside, pt sustaining 144 BPM HR Patient Location: I HR:140 bpm ECG Measurements Heart Rate 140 AXIS SC [id number] P [id number] QRSd 88 QRS 69 QT 308 T -27 QTc 470 Conclusion SVT Low voltage, precordial leads...precordial leads <1.0mV Poor R wave progression Nonspecific diffuse repolarization abnormalities
[2024-04-22] MEDS: MORPHine 2 MG/ML SYR IVP (08:32)
[2024-04-22] MEDS: MAGNESIUM SULFATE 1 GM/100 ML BAG IVINF (09:14)
--- NOTE | 2024-04-22 09:27 | NUR.NOTE ---
Sugical provider unavailable, On site MD barboza notified of tachycardia, on set of nausea and stomach pain not relieved by Morphine and Zofran. EKG ordered and preformed by RT, Teley ordered and patient was put in it for continuous monitoring. RN attempted to have pt bear down while blowing through a straw however it was not effective. MD Barboza ordered mag sulfate one time dose stat. Pt continues with HR in 140s. Nursing Note:
--- NOTE | 2024-04-22 09:29 | PDOC.CMIN ---
Date of service: 04/22/24 Time of Service: 09:29 Care Management Initial Assmt Initial Assessment Reason for Hospitalization: small bowel obstruction, elevated lipids Functional Status/Living Situation Patient Presentation: Pt was lying in bed, eyes closed, when CM met with her this afternoon. She was easily roused, and readily engaged. Chandrika stated that she is still in some pain, but does feel a bit better, especially since the NGT was removed. Her surgical needs are on hold at this time as Chandrika had an acute episode of SVT this morning. She is continuing to have HR>100, and this needs to be controlled. CM spoke with surgery regarding this. Town of Residence: [place] Resides with: Spouse (Rivera) Significant Other/Family: Local (Daughter, Meghan lives close by. 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 I like spending time with my family, especially Ana. Medications Medication Management: No Issues/Barriers identified (denies any issues) Physical Functioning/Mobility Assistive Device: none Advance Directives Advance Directives: Do you have an Advance Directive: Y 04/08/22 02:00 AD On File at [facility]: Y 04/08/22 02:00 Date Asked 04/08/22 04/22/24 11:11 AD Date Reviewed 04/21/24 04/22/24 11:11 COLST On File at [facility] COLST Date Scanned Code Status Resuscitation Status Full Code Portal Pt does not currently have a portal and education provided: No Insurance Coverage/Financial Issues Insurance: [employer] Care Team Visit Care Team Role Provider Type Genie Abdullahi MD Primary Care Provider [facility] STAFF PHYSICIAN Maris Arriaga MD Emergency Provider [facility] STAFF PHYSICIAN Yuliya Martinez, Admit Provider OSTEOPATHIC DOCTOR Attending Provider Discharge Potential Discharge Needs: PCP F/U Appt and Surgical F/U Appt Anticipated Barriers to Discharge: None Identified Patient/Family Education Needs: Review discharge instructions, discuss Ask Me Three Transportation: Private vehicle Plan: Anticipate that Chandrika will be discharged home with no new services. She will travel by private vehicle with her family. She will f/u with her PCP, surgeon, and continue per the prescribed plan of care. CM will continue to follow. 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), managed as type 1 (Acute) Medial epicondylitis of left elbow (Acute) Post-menopausal bleeding (Acute) Lower limb length difference (Acute) Iliotibial band syndrome affecting right lower leg (Acute) Arthritis of right ankle (Acute) Pain of left foot (Acute) Hip pain, right (Acute) Arthritis (Acute 04/12/14) Atrophic vaginitis (Acute 06/18/17) Elevated lipids (Acute 06/18/17) GERD (gastroesophageal reflux disease) (Acute 04/12/14) HTN (hypertension) (Acute 04/12/14) Hyperlipidemia (Acute 04/12/14) Lichen sclerosus (Acute 06/18/17) Migraine (Acute 04/12/14) Spondylosis of lumbar region without myelopathy or radiculopathy (Chronic) Medical History Neutropenia mild Neuritis of left ulnar nerve Yeast vaginitis 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 Pain due to total hip replacement Pain in hip region after hip replacement Trochanteric bursitis, right hip Bilateral hand pain TMJ (dislocation of temporomandibular joint) pt. denies this Dysmenorrhea Menorrhagia Surgical History Hx of appendectomy H/O wrist surgery S/P repair of ligament of ankle History of tonsillectomy tennis elbow surgery L Left elbow 2001 Right elbow surgery for tendonitis 2006 Uterine suspension with L partial salpingectomy 1996 Ligation of fallopian tube Total replacement of hip Right hip 2006 L5 herniated disc repair 08/2013 [facility] Colonoscopy - MAC (03/25/15) DR.TERRY KEBEDE Family History Mother Personal history of malignant neoplasm Breast cancer Father Hyperlipidemia Sister Hodgkin's disease Other Diabetes Social History Smoking/Tobacco Use Status: Never Smoking risk assessment performed?: Yes Alcohol Intake: current Alcohol Intake frequency: holidays/special occasions only Drug use: Never Substance use type: does not use Details: uses cbd oil for leg cramps Housing: house Do you feel safe at home: Yes Do you feel safe in your relationship?: Yes History History 2 Para 1 Hx # Term Pregnancies Multiple births Hx # Pregnancies Ectopic pregnancies AB induced Hx Number of Living Children AB spontaneous Readmission Within the Past 30 Days Yes or No: No SDOH(Care Management) Screening Will the Patient Participate in the Screening?: Yes Do you worry about having a steady place to live?: no In the past 12 months, have you had to go without electric, gas, oil or water in your home?: no Have you or anyone in your house had to go without enough food to eat?: no Has lack of transportation kept you from medical appointments or from doing things needed for daily living?: no Has anyone in your support network made you feel unsafe for any reason?: no Social Determinants of Health Comments(SDOH Details): reviewed with patient 04/22/24 Health Related Social Needs Health related social needs details: denies
[2024-04-22] MEDS: Lactated Ringers 1,000 ML 82 ML IV ×2 (09:55→17:43)
--- NOTE | 2024-04-22 10:00 | MCONE_ITS ---
Date of service: 04/22/24 Time of Service: 10:00 Assessment and Plan Assessment and plan (1) SVT (supraventricular tachycardia): Status: Chronic Assessment and plan: Acute onset this morning. BP is stable, symptoms minor. EKG not ischemic, but will get troponins, also add TSH. Given her risk and ride sided chest pain, should have CTA to assess for PE. This is most likely simply triggered by SBO/vomiting and should pain referred from diaphragm. - Hypomagnesemia being supplemented, should help stabilized heart - She did not respond to vagal maneuvers or carotid massage so treated with adenosine. Converted to sinus rhythm and chest pain resolved but still tachycardic (sinus tachycardia post adenosine at 120bpm). Continue to look for other stressors, but this could be simply related to vomiting. She is getting IV fluids, consider additional bolus to see if helps HR. - troponins reassuring - CT showed no PE, but did show 'Tree and bud infiltrate in ANTONIO (not c/w her symptoms). No antibiotics for now as no signs of pneumonia, but will monitor. 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 She is sensitive to insulin, will write for low dose ISS in case glucose goes up. Holding basal insulin given glucose normal while NPO. She is also on SGLT2i (acutally invokana per PCP record) as outpatient, okay to hold. History of Present Illness History of Present Illness Chief Complaint: heart pounding Narrative: 58 yo F with history of HTN, DM, and GARRY and multiple abdominal surgeries who was admitted for SBO on 04/21, being managed with NGT decompression. This morning around 8am she had sudden onset of heart pounding and right sided chest/shoulder pain that was associated with an episode of nausea and vomiting. She was in bed at rest when this happened. Pain is achey and moderate, not associated with arm movement. She is not short of breath, no worse pain with breathing deep. She hasn't had a fever or cough or leg pain or swelling. She has been moving her bowels liquidy but still feels distended. She has never had SVT as far as she knows. 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), managed as type 1 (Acute) Medial epicondylitis of left elbow (Acute) Post-menopausal bleeding (Acute) Lower limb length difference (Acute) Iliotibial band syndrome affecting right lower leg (Acute) GARRY (obstructive sleep apnea) (Chronic) Hip pain, right (Acute) Pain of left foot (Acute) Arthritis of right ankle (Acute) Arthritis (Acute 04/12/14) Atrophic vaginitis (Acute 06/18/17) Elevated lipids (Acute 06/18/17) GERD (gastroesophageal reflux disease) (Acute 04/12/14) HTN (hypertension) (Acute 04/12/14) Hyperlipidemia (Acute 04/12/14) Lichen sclerosus (Acute 06/18/17) Migraine (Acute 04/12/14) Spondylosis of lumbar region without myelopathy or radiculopathy (Chronic) Medical History Neutropenia mild Neuritis of left ulnar nerve Yeast vaginitis 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 Pain due to total hip replacement Pain in hip region after hip replacement Trochanteric bursitis, right hip Bilateral hand pain TMJ (dislocation of temporomandibular joint) pt. denies this Dysmenorrhea Menorrhagia Surgical History Hx of appendectomy H/O wrist surgery S/P repair of ligament of ankle History of tonsillectomy tennis elbow surgery L Left elbow 2001 Right elbow surgery for tendonitis 2006 Uterine suspension with L partial salpingectomy 1996 Ligation of fallopian tube Total replacement of hip Right hip 2006 L5 herniated disc repair 08/2013 [facility] [place] Colonoscopy - MAC (03/25/15) DR.TERRY KEBEDE Family History Mother Personal history of malignant neoplasm Breast cancer Father Hyperlipidemia Sister Hodgkin's disease Other Diabetes Social History Smoking/Tobacco Use Status: Never Smoking risk assessment performed?: Yes Alcohol Intake: current Alcohol Intake frequency: holidays/special occasions only Drug use: Never Substance use type: does not use Details: uses cbd oil for leg cramps Housing: house Do you feel safe at home: Yes Do you feel safe in your relationship?: Yes History History 2 2 Para 1 Hx # Term Pregnancies Multiple births Hx # Pregnancies Ectopic pregnancies AB induced Hx Number of Living Children AB spontaneous Exam Narrative Exam Narrative: GEN: Alert and oriented x 4, pleasant and cooperative, gives linear history. No acute distress at rest. HEENT: Head atraumatic. Conjunctiva clear, no icterus. no rhinorrhea. MMM, OP benign. Neck is supple with no masses or lymphadenopathy, trachea midline LUNGS: CTAB with normal effort CV: tachycardic and regular with no murmurs, gallops, or rubs. ABD: hypoactive bowel sounds, soft, minimally tender and softly distended. EXT: no cyanosis, clubbing, or edema MSK: No joint redness or swelling NEURO: CN 2-12 grossly intact. Normal movement of 4 extremities. Normal speech and coordination. No tremor SKIN: No rashes or open wounds. PSYCH: normal mood and affect Results Last Vital Signs Temp 36.1 C L 04/22/24 08:37 Pulse 144 H 04/22/24 08:37 Resp 16 04/22/24 08:37 BP 116/57 L 04/22/24 08:37 Pulse Ox 95 04/22/24 08:37 Labs 04/21/24 11:32 04/22/24 06:30 Labs: Laboratory Results - last 24 hr 04/21/24 04/21/24 04/21/24 11:23 11:32 12:24 WBC 5.40 RBC 5.45 H Hgb 16.2 H Hct 48.9 H MCV 90 MCH 29.7 MCHC 33.1 RDW 12.6 Plt Count 177 MPV 9.5 Immature Gran % 0.4 Neutrophils % 60.1 Lymphocytes % 22.8 Monocytes % 13.1 Eosinophils % 3.0 Basophils % 0.6 Nucleated RBC % 0.0 Absolute Neutrophils 3.25 Absolute Lymphocytes 1.23 Absolute Monocytes 0.71 Absolute Eosinophils 0.16 Absolute Basophils 0.03 Sodium 136 Potassium 3.6 Chloride 101 Carbon Dioxide 25.9 Anion Gap 9.1 BUN 20 H Creatinine 1.0 Est GFR (CKD-EPI 2020) 64.49 Glucose 109 H Calcium 9.0 Magnesium 2.0 Total Bilirubin 0.74 AST 32 ALT 45 Alkaline Phosphatase 95 Troponin I < 4 Cancelled Total Protein 7.0 Albumin 3.6 Lipase 21 Urine Color Urine Clarity Urine pH Ur Specific [place] Urine Protein Urine Ketones Urine Blood Urine Nitrite Urine Bilirubin Urine Urobilinogen Ur Leukocyte Esterase Urine RBC Urine WBC Ur Epithelial Cells Urine Crystals Urine Bacteria Urine Mucus Ur Culture Indicated? Urine Glucose COVID-19 Source SARS-CoV-2 (PCR) Influenza Type A (PCR) Influenza Type B (PCR) RSV (PCR) 04/21/24 04/21/24 04/21/24 12:34 13:08 14:24 WBC RBC Hgb Hct MCV MCH MCHC RDW Plt Count MPV Immature Gran % Neutrophils % Lymphocytes % Monocytes % Eosinophils % Basophils % Nucleated RBC % Absolute Neutrophils Absolute Lymphocytes Absolute Monocytes Absolute Eosinophils Absolute Basophils Sodium Potassium Chloride Carbon Dioxide Anion Gap BUN Creatinine Est GFR (CKD-EPI 2020) Glucose Calcium Magnesium Total Bilirubin AST ALT Alkaline Phosphatase Troponin I Cancelled Total Protein Albumin Lipase Urine Color Yellow Urine Clarity Sl Cloudy Urine pH 5.5 Ur Specific [place] 1.010 Urine Protein Negative Urine Ketones 15 H Urine Blood Negative Urine Nitrite Negative Urine Bilirubin Negative Urine Urobilinogen 0.2 Ur Leukocyte Esterase Negative Urine RBC 0-2 Urine WBC 0-2 Ur Epithelial Cells Few Urine Crystals Negative Urine Bacteria Few Urine Mucus Negative Ur Culture Indicated? No Urine Glucose >=1000 H COVID-19 Source Nasopharynx SARS-CoV-2 (PCR) Negative Influenza Type A (PCR) Negative Influenza Type B (PCR) Negative RSV (PCR) Negative 04/22/24 06:30 WBC RBC Hgb Hct MCV MCH MCHC RDW Plt Count MPV Immature Gran % Neutrophils % Lymphocytes % Monocytes % Eosinophils % Basophils % Nucleated RBC % Absolute Neutrophils Absolute Lymphocytes Absolute Monocytes Absolute Eosinophils Absolute Basophils Sodium 139 Potassium 3.6 Chloride 105 Carbon Dioxide 23.3 Anion Gap 10.7 BUN 18 Creatinine 0.8 Est GFR (CKD-EPI 2020) 84.30 Glucose 91 Calcium 8.7 Magnesium 1.7 L Total Bilirubin AST ALT Alkaline Phosphatase Troponin I Total Protein Albumin Lipase Urine Color Urine Clarity Urine pH Ur Specific [place] Urine Protein Urine Ketones Urine Blood Urine Nitrite Urine Bilirubin Urine Urobilinogen Ur Leukocyte Esterase Urine RBC Urine WBC Ur Epithelial Cells Urine Crystals Urine Bacteria Urine Mucus Ur Culture Indicated? Urine Glucose COVID-19 Source SARS-CoV-2 (PCR) Influenza Type A (PCR) Influenza Type B (PCR) RSV (PCR) Imaging EKG: image reviewed (narrow complex regular tachycardia at 140 BPM. no p-waves. )
[2024-04-22] MEDS: Adenosine 6 MG/2 ML VIAL IVP (10:28)
--- NOTE | 2024-04-22 10:30 | RT.EKG_ITS ---
APPROVED REPORT Exam: Resting ECG Reason for Exam: svt, pushing adenosine Patient Location: I HR:122 bpm ECG Measurements Heart Rate 122 AXIS MO 154 P 84 QRSd 87 QRS 69 QT 317 T -13 QTc 452 Conclusion Sinus tachycardia...rate> 99 Low voltage, precordial leads...precordial leads <1.0mV Borderline T abnormalities, inferior leads...T flat/neg, II III aVF
[2024-04-22 10:42] LABS: Troponin I 7 ng/L (<or=51)
[2024-04-22] MEDS: Omnipaque 350 MG/ML 100 ML BTL IJ (10:56)
[2024-04-22] MEDS: Normal Saline - Diluent 50 ML VIAL IJ (10:57)
[2024-04-22 11:06] LABS: TSH (W/Ref FT4) 0.81 uIU/mL (0.36-3.74)
--- NOTE | 2024-04-22 11:11 | DI.CT_ITS ---
Exam(s) CT CHEST PE CTA EXAM: CT CHEST PE CTA CLINICAL HISTORY: acute chest pain/tachycardia, new SVT. TECHNIQUE: Imaging Protocol: CT angiography of the chest was performed using pulmonary embolus vivek col. Multi planar reconstructions were performed. CONTRAST MATERIAL: Intravenous: Omnipaque 350 Contrast volume: 100 cc COMPARISON: CT CT CHEST PE ABD PELVIS W from 04/21/2024 CR XR ABDOMEN FLAT PLATE from 04/22/2024 FINDINGS: CHEST: PULMONARY ARTERIES: There are no intraluminal filling defects to suggest acute pulmonary emboli. LUNGS: There is some increasing tree in bud infiltrate in the left upper lobe, not associated with pl eural effusions nor adenopathy. No findings in the trachea and mainstem bronchi.. Mild increased ma rkings noted in in both lung bases but without air bronchograms. There is no bronchiectasis. MEDIASTINUM: There is no hilar nor mediastinal adenopathy. No subcarinal adenopathy. There is an NG tube in the esophagus with distal tip in the stomach. CARDIAC: Heart size is upper normal. There is no pericardial effusion.Caliber of the thoracic aorta is within normal limits. No evidence of aortic dissection. There is no significant shift of the inte rventricular septum. No contrast reflux into the intrahepatic IVC. PARTIALLY VISUALIZED UPPERMOST ABDOMEN: No obvious findings OSSEOUS: No significant osseous lesions.. IMPRESSION: 1. No evidence of acute pulmonary emboli. No evidence of pulmonary infarction.No evidence of aortic dissection nor pericardial effusion. Normal heart size. 2. Mild left upper lobe infiltrate which exhibits tree-in-bud appearance. No associated adenopathy n or pleural effusion. RADIATION DOSE DELIVERED: 85.53mGy.cm Total DLP DATA REPOSITORY: All CT scans at this facility are submitted to the National Radiology Data Registry (NRDR) Dose Index Registry (DIR) with the [employer] (ACR). RADIATION OPTIMIZATION: All CT scans at this facility use at least one of these dose optimization te chniques: automated exposure control; mA and/or kV adjustment per patient size (includes targeted exa ms where dose is matched to clinical indication); or iterative reconstruction.
--- NOTE | 2024-04-22 12:11 | PHA.REVIEW2 ---
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), managed as type 1 (Acute) Elevated lipids (Acute 06/18/17) GERD (gastroesophageal reflux disease) (Acute 04/12/14) HTN (hypertension) (Acute 04/12/14) Hyperlipidemia (Acute 04/12/14) cephalexin monohydrate (From Keflex) Allergy (Intermediate, Verified 04/21/24 11:13) RASH chlorhexidine gluconate (From Hibiclens) Allergy (Intermediate, Verified 04/21/24 11:13) Skin Rash sulfamethoxazole (From Bactrim) Allergy (Intermediate, Verified 04/21/24 11:13) RASH trimethoprim (From Bactrim) Allergy (Intermediate, Verified 04/21/24 11:13) RASH adhesive Allergy (Unknown, Verified 04/21/24 11:13) Skin Rash Resuscitation Status Full Code Height 5 ft 7 in Weight 80.1 kg Pharmacy Admission Review Renal Dosing Renal Dosing: BUN 18 mg/dL (7-18) 04/22/24 06:30 Creatinine 0.8 mg/dL (0.55-1.02) 04/22/24 06:30 Medications needing adjustments: Reviewed (CrCl 65.16 mL/min) List of meds needing interventions: Current medications are okay Anticoagulation Anticoagulation: Hgb 16.2 g/dL (11.2-15.7) H 04/21/24 11:32 Hct 48.9 % (36.0-46.0) H 04/21/24 11:32 Plt Count 177 10^3/uL (130-400) 04/21/24 11:32 Creatinine 0.8 mg/dL (0.55-1.02) 04/22/24 06:30 DVT Prophylaxis: Reviewed Medications: Enoxaparin (40mg daily) Opiate Usage Evaluate Pain Scale/Pains Meds: Reviewed (PRN IVP morphine - 1 dose given) Scheduled Bowel Reg ordered if on Opiates?: No Relevant Labs Relevant Labs: Sodium 139 mmol/L (136-145) 04/22/24 06:30 Potassium 3.6 mmol/L (3.5-5.1) 04/22/24 06:30 Chloride 105 mmol/L (98-107) 04/22/24 06:30 Magnesium 1.7 mg/dL (1.8-2.4) L 04/22/24 06:30 Electrolytes, C-Reactive P, ESR: Reviewed (Mg 1.7 - repleting with 1gm IV infusion) DM Control DM Control: Glucose 91 mg/dL (74-106) 04/22/24 06:30 Finger Stick Blood Glucose 91 0741 Finger Stick Blood Glucose 91 0741 Finger Stick Blood Glucose 96 0600 Finger Stick Blood Glucose 96 0600 DM Control: Intervened Insulin Dosing, Diabetic Medication: No orders currently. Does not have diagnosis listed in chart but does have insulin on home med list. Reached out to provider as no orders were put in. Cardiac Review Cardiac Review: Troponin I 7 ng/L (<or=51) 04/22/24 10:11 Heart Rate 134 1026 Heart Rate 133 1026 Heart Rate 136 1026 Heart Rate 144 0837 Heart Rate 136 0810 Heart Rate 119 0743 BP, HR, EF%: Reviewed (BP WNL) List meds needing interventions: Has order for lisinopril 5mg daily. Received now x 1 dose of adenosine this AM at 1028 for SVT. QTc Review QTc: Reviewed (471 from 04/21/24) IV to PO Switch IV Medications: Reviewed (acetaminophen, ondansetron and pantoprazole - currently NPO) Home Meds Home Med List reviewed: Intervened Relevent Home Meds Not ordered & why?: Ascorbic acid, aspirin, celecoxib, B12, duloxetine, Jardiance, Estring, ferrous sulfate, indomethacin, aspart, omeprazole (has order for pantoprazole) and rosuvastatin Reached out to provider regarding missing home meds Updated home med list Current Meds Current Medication Order Review: Reviewed
[2024-04-22] MEDS: Lactated Ringers 500 ML IV (13:18)
[2024-04-22 14:35] LABS: Troponin I 15 ng/L (<or=51)
[2024-04-22] MEDS: ACETAMINOPHEN 1,000 MG/100 ML BTL 400 MG IVPB (14:58)
--- NOTE | 2024-04-22 15:20 | PGE_ITS ---
Date of Service Date of service: 04/22/24 Time of Service: 15:21 Assessment and Plan Assessment and plan (1) SBO (small bowel obstruction): Status: Acute Assessment and plan: At this point, little skeptical that she had a small bowel obstruction. I think the more likely diagnosis is a common enteritis. With regards to the tachyarrhythmia, it is a little hard to decipher that etiology as well. It seems to be improving after some intravenous fluids, as well as removal of the nasogastric tube. At this point, it does not appear to be ischemic in origin and there are certainly no evidence of pulmonary embolism. Will keep her on the monitor for now and reassess through the afternoon. Subjective Subjective Interval history since last seen: Chandrika had a repeat abdominal flatplate today that shows contrast into the rectum. Additionally, she is having bowel movements. Her abdominal pain is resolved, but she did develop some right-sided chest pain earlier today, this was associated with a narrow complex tachycardia that may have been SVT. Currently, she has a sinus tachycardia at 108. CT angiogram was also performed that was negative for pulmonary embolism Exam GI Other: Her abdomen is soft and nondistended. She is not tender. She has bowel sounds. Objective Last Vital Signs Temp 98.4 F 04/22/24 15:16 Pulse 116 H 04/22/24 15:16 Resp 15 04/22/24 15:16 BP 119/65 04/22/24 15:16 Pulse Ox 95 04/22/24 15:16 Laboratory Results - last 24 hr 04/22/24 04/22/24 04/22/24 06:30 10:11 14:07 Sodium 139 Potassium 3.6 Chloride 105 Carbon Dioxide 23.3 Anion Gap 10.7 BUN 18 Creatinine 0.8 Est GFR (CKD-EPI 2020) 84.30 Glucose 91 Calcium 8.7 Magnesium 1.7 L Troponin I 7 15 TSH 0.81 Time Spent with Patient Time Spent with Patient: 25-34 minutes Time was spent: preparing to see the patient(eg.review tests), referring, communicating with other health childcare worker, indepentently interpreting results and counseling the patient
--- NOTE | 2024-04-22 16:29 | CHAPLAIN ---
I visited with Chandrika this morning. She was waiting to go to the ICU for a procedure that she said would stop her heart to get it back to the right rhythm. She also had an NG tube in and hasn't gotten much sleep. She seemed anxious about the procedure. This afternoon she was back in her room with family members. I will continue to visit.
[2024-04-22] MEDS: Enoxaparin 40 MG/0.4 ML SYR SC (17:41)
[2024-04-22] MEDS: Pantoprazole 40 MG VIAL IVP (17:41)
[2024-04-22] MEDS: DULoxetine 20 MG CAP PO (19:53)
[2024-04-22] MEDS: Insulin Aspart 300 UNITS/3 ML PEN SC (21:22)
[2024-04-23] VITALS (10 sets, daily range): BP systolic 104–149; BP diastolic 45–66; PULSE 110–120; RESP 12–19; TEMP 36.6–37.1; O2SAT 95–98
--- NOTE | 2024-04-23 | DI.CT_ITS ---
Exam(s) CT ABDOMEN PELVIS W EXAM: CT ABDOMEN PELVIS W CLINICAL HISTORY: rising WBG and lactic acid, tachycardia. TECHNIQUE: Imaging Protocol: Axial computed tomography images with coronal and sagittal reformatted images were created and reviewed CONTRAST MATERIAL: Intravenous: Omnipaque-350 100cc Oral: None COMPARISON: No exams were available for comparison FINDINGS: VISUALIZED LUNG BASES: No nodules nor pleural effusions evident. ABDOMEN: There is no ascites. LIVER: Liver is hypodense implying steatosis. There no discrete focal hepatic lesions identified. N o dilated intrahepatic ducts. Intrahepatic portal veins and intrahepatic systemic veins are patent. GALLBLADDER/BILIARY: Contains hyperdense material most probably excretion of IV contrast from CT scan 2 day prior. CBD is not dilated. PANCREAS: No evidence of pancreatic mass nor dilatation of the pancreatic duct. SPLEEN: Spleen is not enlarged. No obvious intrasplenic lesions. Splenic and portal veins are paten t. ADRENALS: There are no significant adrenal masses. KIDNEYS:Benign cyst left kidney again noted. Does not require further workup. No solid renal masses . Sys small nonobstructive calculus in left kidney again noted. No hydronephrosis nor hydroureter. No obvious findings in the urinary bladder. ABDOMINAL AORTA: Abdominal aorta is not enlarged. LYMPH NODES:There is no retroperitoneal nor paraaortic adenopathy. ABDOMINAL WALL: No evidence of significant anterior abdominal wall nor inguinal hernia. GI: There is presently no evidence of bowel obstruction, free air, nor abscess. Previously dilated jejunal loops appear unremarkable on the present study. No free air. PELVIS: GI: No evidence of appendicitis.No evidence of sigmoid diverticulitis. LYMPH NODES: There is no intrapelvic nor inguinal adenopathy. REPRODUCTIVE: Pessary again noted in upper vagina. Uterus and adnexal regions unremarkable although some dilated periuterine veins are again noted. URINARY BLADDER: Partially obscured by beam hardening artifact right hip prosthesis. Otherwise unrem arkable. OSSEOUS: Right hip prosthesis. No fractures. No significant osseous lesions. IMPRESSION: 1. Compared to the prior CT scan of 04/21/2024 the previously described dilated small bowel loops in left side of the abdomen presently appear unremarkable. There is presently no evidence of small-roxana l obstruction, free air, nor abscess. There is no ascites. 2. Pessary again noted in the upper vagina. 3. Right hip prosthesis [facility] with on-call surgeon following completion of the study 04/23/2024. RADIATION DOSE DELIVERED: 348.9mGy.cm Total DLP DATA REPOSITORY: All CT scans at this facility are submitted to the National Radiology Data Registry (NRDR) Dose Index Registry (DIR) with the [employer] (A[employer]). RADIATION OPTIMIZATION: All CT scans at this facility use at least one of these dose optimization te chniques: automated exposure control; mA and/or kV adjustment per patient size (includes targeted exa ms where dose is matched to clinical indication); or iterative reconstruction.
--- NOTE | 2024-04-23 | DI.RAD_ITS ---
Exam(s) XR ABD FLAT UPRIGHT PA CHEST EXAM: XR ABD FLAT UPRIGHT PA CHEST CLINICAL HISTORY: abd pain. TECHNIQUE: 2D digital imaging was performed. COMPARISON: CT CT CHEST PE ABD PELVIS W from 04/21/2024 CR XR ABDOMEN FLAT PLATE from 04/22/2024 FINDINGS: 3 views: Frontal PA view of the chest and supine and upright views of the abdomen. Heart size normal. Lungs are clear. Stomach is not distended There is no evidence of obvious bowel obstruction. Is a small amount of remaining enteric contrast w hich is all within the nondilated colon and rectum. On the upright images there is air lucency associated with the undersurface of the right hemidiaphrag m. This may indicate free intraperitoneal air. There is a possibly that this is artifactual. There appears to be a vaginal pessary in place. There is also a right hip prosthesis. IMPRESSION: No bowel obstruction Subtle suspicion for free intraperitoneal air subjacent to the right hemidiaphragm versus possible ar tifact. If clinically indicated (requisition states increasing abdominal pain) I would recommend CT scan of the abdomen-pelvis DATA REPOSITORY: RADIATION DOSE DELIVERED:
[2024-04-23] MEDS: Ondansetron 4 MG/2 ML VIAL IVP (03:58)
[2024-04-23] MEDS: Lactated Ringers 1,000 ML 82 ML IV (06:14)
[2024-04-23 07:20] LABS: HCT 44.8 % (36.0-46.0); HGB 14.3 g/dL (11.2-15.7); MCH 29.7 pg (27.0-33.0); MCHC 31.9 % (32.0-36.0); MCV 93 fL (80-95); Platelet Count 231 10^3/uL (130-400); RBC 4.81 10^6/uL (3.93-5.22); RDW 12.9 % (11.7-14.6); RDW-SD 44.1 fL
[2024-04-23 07:42] LABS: Anion Gap 22.8 mmol/L (3-11); BUN 24 mg/dL (7-18); CO2 8.2 mmol/L (21.0-32.0); CREATININE 1.1 mg/dL (0.55-1.02); Calcium 9.2 mg/dL (8.5-10.1); Chloride 103 mmol/L (98-107); Estimated GFR 57.52 (mL/min/1.73m2); Glucose 247 mg/dL (74-106); Magnesium 2.1 mg/dL (1.8-2.4); Potassium 5.3 mmol/L (3.5-5.1); Sodium 134 mmol/L (136-145)
[2024-04-23] MEDS: Empaglifozin 25 MG TAB PO (08:22)
[2024-04-23] MEDS: Lisinopril 5 MG TAB PO (08:22)
[2024-04-23] MEDS: Normal Saline Flush 10 ML SYR IVP ×3 (08:23→20:08)
--- NOTE | 2024-04-23 08:29 | RESPIRATORY ---
Spoke with patient about GARRY diagnosis and pt advised she has a mouth guard she uses nightly but didn't bring it with her due to her nausea. Pt said she will ask her to bring it here so she can start using.
--- NOTE | 2024-04-23 09:00 | DI.US_ITS ---
Exam(s) US ABDOMEN LIMITED EXAM: US ABDOMEN LIMITED CLINICAL HISTORY: RUQ abdominal pain with colic with N/V TECHNIQUE: Ultrasound abdomen performed using standard protocol. COMPARISON: US US PELVIS TRANSVAGINAL from 11/05/2022 FINDINGS: There is no ascites evident. LIVER: There are no hepatic lesions evident nor dilatation of intrahepatic ducts. GALLBLADDER/BILIARY: There are no gallstones. No gallbladder wall edema nor pericholecystic fluid. The common hepatic duct isnot dilated, measuring 5mm at the level of sharon hepatis. PANCREAS: There is no evidence of pancreatic mass nor dilatation of the pancreatic duct. RIGHT KIDNEY:No evidence of solid mass, calculus, nor hydronephrosis. No cortical cysts evident. IMPRESSION: 1. No evidence of cholelithiasis nor dilatation of the biliary tree. 2. No other significant ultrasound findings in the right upper quadrant. 3. There is no ascites. DATA REPOSITORY:
[2024-04-23] MEDS: Lactated Ringers 500 ML IV (09:30)
[2024-04-23 11:44] LABS: Abs Immature Grans 0.08 10^3/uL (0.0-0.06); Absolute Lymphocyte Count 1.59 10^3/uL (1.2-3.4); Absolute Monocyte Count 0.89 10^3/uL (0.1-0.8); Absolute Neutrophil Count 10.46 10^3/uL (1.2-6.7); Basophils % 0.2 %; HCT 44.7 % (36.0-46.0); HGB 14.1 g/dL (11.2-15.7); Immature Grans % 0.6 %; Lymphocytes % 12.2 %; MCH 29.6 pg (27.0-33.0); MCHC 31.5 % (32.0-36.0); MCV 94 fL (80-95); MPV 9.6 fL (8.0-11.0); Monocytes % 6.8 %; Neutrophils % 80.2 %; Platelet Count 250 10^3/uL (130-400); RBC 4.76 10^6/uL (3.93-5.22); RDW 13.2 % (11.7-14.6); RDW-SD 45.7 fL; WBC 13.04 10^3/uL (4.4-10.8)
[2024-04-23 11:45] LABS: Absolute Basophil Count 0.03 10^3/uL (0.0-0.2)
[2024-04-23 12:09] LABS: ALT 33 U/L (14-59); AST 19 U/L (15-37); Albumin 3.2 g/dL (3.4-5.0); Alkaline Phosphatase 97 U/L (46-116); BUN 27 mg/dL (7-18); Bilirubin, Total 0.65 mg/dL (0.2-1.0); C-Reactive Protein 6.86 mg/dL (<or=0.5); CREATININE 1.4 mg/dL (0.55-1.02); Calcium 9.1 mg/dL (8.5-10.1); Chloride 103 mmol/L (98-107); Estimated GFR 43.07 (mL/min/1.73m2); Glucose 279 mg/dL (74-106); Lipase 16 U/L (16-77); Potassium 5.1 mmol/L (3.5-5.1); Sodium 135 mmol/L (136-145); Total Protein 6.6 g/dL (6.4-8.2)
[2024-04-23 12:39] LABS: Bilirubin Negative (Negative); Blood Trace-lysed (Negative); Clarity Clear (Clear); Glucose 500 mg/dL (Negative); Ketones >=160 mg/dL (Negative); Leukocyte Esterase Negative (Negative); Nitrite Negative (Negative); Urobilinogen 0.2 mg/dL (Up to 0.2)
--- NOTE | 2024-04-23 12:44 | W.PM.PROGNOT ---
Date of Service Date of service: 04/23/24 Time of Service: 14:56 Assessment and Plan Assessment and plan (1) SBO (small bowel obstruction): Status: Acute Assessment and plan: If patient had a partial small bowel obstruction, this seems to have resolved. She has not had any significant vomiting. She had multiple loose stools yesterday and has passed a small amount of gas overnight. She is not distended. Dilated loops of bowel seen on CT scan have resolved on today's CT scan. (2) Tachycardia: Status: Acute Assessment and plan: Patient has persistent tachycardia, now with rising white blood cell count, elevated lactate, and a low bicarb indicating acidosis. She does have ketones in her urine. Her blood sugars have been 249 and 279 today. Concern is for diabetic ketoacidosis. Hospitalist are managing. Patient will be transferred to the ICU and started on an insulin drip. She has had a few boluses of IV fluids. Her electrolytes will be monitored according to protocol. (3) Lactic acid acidosis: Status: Acute Assessment and plan: See above (4) Abdominal pain: Status: Acute Assessment and plan: Patient does have persistent tenderness across the upper abdomen. She does not describe it as sharp pain. She does not have rebound tenderness or guarding which are typical signs of peritonitis. I did get an abdominal x-ray earlier where there was a mild concern for some free air. Given this finding and her labs, I also repeated her CT of the abdomen pelvis today with IV contrast. This does not show any free air or free fluid. It does not show any fat stranding or edema to suggest any acute inflammation in any location. The dilated loops of small bowel that were present 2 days ago have completely resolved. She has some residual contrast from the Gastrografin challenge in the colon. She also had a right upper quadrant ultrasound this morning that did not show any gallstones, did not showed dilation of the common bile duct, and did not show any gallbladder wall thickening or pericholecystic fluid. At this point in time, I do not think that she has any indication that some things surgical is underlying this. However, given the persistent upper abdominal tenderness, I will continue to follow along. Qualifiers: Abdominal location: upper abdomen, unspecified Qualified Code(s): R10.10 - Upper abdominal pain, unspecified (5) DKA (diabetic ketoacidosis): Status: Acute Assessment and plan: See above Qualifiers: Diabetes mellitus type: type 2 Diabetes mellitus complication detail: without coma Qualified Code(s): E11.10 - Type 2 diabetes mellitus with ketoacidosis without coma Subjective Subjective Interval history since last seen: Patient reports persistent abdominal tenderness in the upper abdomen. Although she says that the abdominal pain that she presented with few days ago is improved and now she just describes it as tenderness. She had an episode of nausea around 3 AM where she was found to be quite uncomfortable and tachycardic to the 1 30-1 40 range. Symptoms seem to have passed and her heart rate came back down. It has been sitting around 115 bpm since she received the adenosine yesterday for the SVT. She has not had any more vomiting. The NG tube was removed yesterday. She has not had another bowel movement and has only passed a small amount of flatus. She has been out of bed to the bathroom and gets around without assistance. She does report a general sense of not feeling well. She does not complain of chest pain. She does not report shortness of breath. Her labs this morning showed a increased white blood cell count to 11.9 from normal 2 days prior. On repeat labs midday her white count was up to 13.0. Other abnormalities included a elevated potassium at 5.3, up from a normal 3.4 the day prior. Sodium was a bit low at 134. Creatinine was up to 1.1. Bicarb was down to 8 from 21 the day prior. Vital signs are fairly unchanged. She remains afebrile. She is not hypotensive. Her tachycardia is persistent around 115. O2 sats within normal limits on room air. Exam Narrative Exam Narrative: General?awake, alert, lying in bed with head of bed elevated. No apparent distress. HEENT?normocephalic, atraumatic. Sclera anicteric. Mucous membranes dry. Neck?supple, no masses Respiratory?unlabored, no use of accessory muscles, clear to auscultation Abdomen?soft, nondistended, moderately tender to palpation across the upper abdomen, nontender with palpation across the lower abdomen, no rebound tenderness, no guarding. Extremities?moves all extremities, ambulates independently, minimal edema at the ankles, fingers are cool on both hands. Objective Last Vital Signs Temp 36.7 C 09/19/24 12:30 Pulse 114 H 04/23/24 12:30 Resp 15 04/23/24 12:30 BP 149/66 H 04/23/24 12:30 Pulse Ox 96 04/23/24 12:30 Laboratory Results - last 24 hr 04/22/24 04/23/24 04/23/24 14:07 06:45 11:31 WBC 11.90 H 13.04 H RBC 4.81 4.76 Hgb 14.3 14.1 Hct 44.8 44.7 MCV 93 94 MCH 29.7 29.6 MCHC 31.9 L 31.5 L RDW 12.9 13.2 Plt Count 231 250 MPV 10.0 9.6 Immature Gran % 0.6 Neutrophils % 80.2 Lymphocytes % 12.2 Monocytes % 6.8 Eosinophils % 0.0 Basophils % 0.2 Nucleated RBC % 0.0 Absolute Neutrophils 10.46 H Absolute Lymphocytes 1.59 Absolute Monocytes 0.89 H Absolute Eosinophils 0.00 Absolute Basophils 0.03 VBG Lactate 3.0 H* Sodium 134 L 135 L Potassium 5.3 H D 5.1 Chloride 103 103 Carbon Dioxide 8.2 L 10.0 L Anion Gap 22.8 H 22.0 H BUN 24 H 27 H Creatinine 1.1 H 1.4 H Est GFR (CKD-EPI 2020) 57.52 43.07 Glucose 247 H 279 H Calcium 9.2 9.1 Magnesium 2.1 Total Bilirubin 0.65 AST 19 ALT 33 Alkaline Phosphatase 97 Troponin I 15 C-Reactive Protein 6.86 H Total Protein Albumin Lipase Urine Color Urine Clarity Urine pH Ur Specific [place] Urine Protein Urine Ketones Urine Blood Urine Nitrite Urine Bilirubin Urine Urobilinogen Ur Leukocyte Esterase Urine Glucose 04/23/24 04/23/24 04/23/24 11:31 11:31 12:27 WBC RBC Hgb Hct MCV MCH MCHC RDW Plt Count MPV Immature Gran % Neutrophils % Lymphocytes % Monocytes % Eosinophils % Basophils % Nucleated RBC % Absolute Neutrophils Absolute Lymphocytes Absolute Monocytes Absolute Eosinophils Absolute Basophils VBG Lactate Sodium Potassium Chloride Carbon Dioxide Anion Gap BUN Creatinine Est GFR (CKD-EPI 2020) Glucose Calcium Magnesium Total Bilirubin AST ALT Alkaline Phosphatase Troponin I C-Reactive Protein Cancelled Total Protein 6.6 Albumin 3.2 L Lipase 16 Cancelled Urine Color Yellow Urine Clarity Clear Urine pH 5.0 Ur Specific [place] 1.020 Urine Protein Negative Urine Ketones >=160 H Urine Blood Trace-lysed H Urine Nitrite Negative Urine Bilirubin Negative Urine Urobilinogen 0.2 Ur Leukocyte Esterase Negative Urine Glucose 500 H 04/23/24 Unknown WBC RBC Hgb Hct MCV MCH MCHC RDW Plt Count MPV Immature Gran % Neutrophils % Lymphocytes % Monocytes % Eosinophils % Basophils % Nucleated RBC % Absolute Neutrophils Absolute Lymphocytes Absolute Monocytes Absolute Eosinophils Absolute Basophils VBG Lactate Sodium Cancelled Potassium Cancelled Chloride Cancelled Carbon Dioxide Cancelled Anion Gap Cancelled BUN Cancelled Creatinine Cancelled Est GFR (CKD-EPI 2020) Cancelled Glucose Cancelled Calcium Cancelled Magnesium Cancelled Total Bilirubin AST ALT Alkaline Phosphatase Troponin I C-Reactive Protein Total Protein Albumin Lipase Urine Color Urine Clarity Urine pH Ur Specific [place] Urine Protein Urine Ketones Urine Blood Urine Nitrite Urine Bilirubin Urine Urobilinogen Ur Leukocyte Esterase Urine Glucose Time Spent with Patient Time Spent with Patient: >50 minutes Time was spent: preparing to see the patient(eg.review tests), obtaining and/or reviewing separately otained hiistory, ordering medications,tests, procedures, referring, communicating with other health customer care specialist and indepentently interpreting results
[2024-04-23 12:49] LABS: Bacteria Few HPF (Negative); Epithelial Cells Many HPF (Negative); WBC 0-2 HPF (0-5)
[2024-04-23 12:50] LABS: C & S Indicated? No; Casts 0-2 Coarse Granular LPF (Negative); Crystals Negative HPF (Negative); Mucus Trace (Negative)
--- NOTE | 2024-04-23 12:50 | PDOC.CMPRO ---
Date of service: 04/23/24 Time of Service: 12:50 Care Management Progress Note Progress Note Text Progress Note Text: Chandrika was lying in bed, HOB elevated, with her eyes closed when CM met with her and her today. She roused easily and readily engaged, but it seemed obvious that she didn't feel well, and she stated so. She is still having nausea and abdominal pain. She would really like to know what is going on. She does feel well cared for, and sees that additional testing is being done, but is just eager for answers, and also to feel better. Discharge Potential Discharge Needs: PCP F/U Appt, Surgical F/U Appt and Other (cardiology f/u) Anticipated Barriers to Discharge: Medical Status (Chandrika continues to feel unwell. Her WBC is increasing. ) Patient/Family Education Needs: Review discharge instructions, discuss Ask Me Three Transportation: Private vehicle Plan: Anticipate that Chandrika will be discharged home with no new services once medically stable. She will f/u with her PCP, and likely surgery and cardiology. She will transport with her , and continue per the prescribed plan of care. SDOH(Care Management) Screening Will the Patient Participate in the Screening?: Yes Do you worry about having a steady place to live?: no In the past 12 months, have you had to go without electric, gas, oil or water in your home?: no Have you or anyone in your house had to go without enough food to eat?: no Has lack of transportation kept you from medical appointments or from doing things needed for daily living?: no Has anyone in your support network made you feel unsafe for any reason?: no Social Determinants of Health Comments(SDOH Details): reviewed with patient 04/22/24 Health Related Social Needs Health related social needs details: denies
[2024-04-23] MEDS: Normal Saline - Diluent 50 ML VIAL IJ (13:12)
[2024-04-23] MEDS: Omnipaque 350 MG/ML 100 ML BTL IJ (13:13)
--- NOTE | 2024-04-23 13:15 | PGE_ITS ---
Date of Service Date of service: 04/23/24 Time of Service: 13:15 Assessment and Plan Assessment and plan (1) Abdominal pain: Status: Acute Assessment and plan: Admitted for SBO, but now with worse pain and elevating WBC and lactic acidosis, renal dysfunction c/w developing severe sepsis Repeat CT abd/pelvis ordered by surgery Starting antibiotics, with cephalexin allergy will use levofloxacin and metronidazole Monitor closely, she may need to go to ICU (2) Lactic acid acidosis: Status: Acute Assessment and plan: As above, given another 1 liter LR. Acidosis causing hyperkalemia. Holding ADRIEL inh. (3) SVT (supraventricular tachycardia): Status: Chronic Assessment and plan: Acute onset 04/22, stable, symptoms minor. EKG not ischemic, troponins, and TSH normal. CTA negative for PE. Most likely simply triggered by vomiting. - Hypomagnesemia being supplemented, should help stabilized heart - She did not respond to vagal maneuvers or carotid massage so treated with adenosine. Converted to sinus rhythm and chest pain and SVT resolved but still tachycardic (sinus tachycardia post adenosine at 120bpm). 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 She is now mildly hyperglycemic, but I don't think this is DKA. That said, we will resume basal insulin, or go to drip if she ends up needing ICU level care. Subjective Subjective Patient reports: denies shortness of breath or fever Interval history since last seen: NGT removed. Developed increased epigastric/RUQ pain last night, abd u/s ordered He feels better after pain medicaiton, able to rest, but she still has abdominal pain. Doesn't feel like eating, though has hasn't vomited this morning. No diarrhea. No chest pain. Exam Narrative Exam Narrative: GEN: Alert and oriented, pleasant and cooperative, but more uncomfortable appearing distress at rest. HEENT: Head atraumatic. Conjunctiva clear, no icterus. no rhinorrhea. MMM, OP benign. Neck is supple with no masses or lymphadenopathy, trachea midline LUNGS: CTAB with normal effort CV: tachycardic and regular with no murmurs, gallops, or rubs. ABD: hypoactive bowel sounds, soft, not distended but more tender diffusely but more in epigastrum/RUQ EXT: no cyanosis, clubbing, or edema MSK: No joint redness or swelling SKIN: Warm, no rashes or open wounds. Objective Last Vital Signs Temp 36.7 C 04/23/24 12:30 Pulse 114 H 04/23/24 12:30 Resp 15 04/23/24 12:30 BP 149/66 H 04/23/24 12:30 Pulse Ox 96 04/23/24 12:30 Laboratory Results - last 24 hr 04/22/24 04/23/24 04/23/24 14:07 06:45 11:31 WBC 11.90 H 13.04 H RBC 4.81 4.76 Hgb 14.3 14.1 Hct 44.8 44.7 MCV 93 94 MCH 29.7 29.6 MCHC 31.9 L 31.5 L RDW 12.9 13.2 Plt Count 231 250 MPV 10.0 9.6 Immature Gran % 0.6 Neutrophils % 80.2 Lymphocytes % 12.2 Monocytes % 6.8 Eosinophils % 0.0 Basophils % 0.2 Nucleated RBC % 0.0 Absolute Neutrophils 10.46 H Absolute Lymphocytes 1.59 Absolute Monocytes 0.89 H Absolute Eosinophils 0.00 Absolute Basophils 0.03 VBG Lactate 3.0 H* Sodium 134 L 135 L Potassium 5.3 H D 5.1 Chloride 103 103 Carbon Dioxide 8.2 L 10.0 L Anion Gap 22.8 H 22.0 H BUN 24 H 27 H Creatinine 1.1 H 1.4 H Est GFR (CKD-EPI 2020) 57.52 43.07 Glucose 247 H 279 H Calcium 9.2 9.1 Magnesium 2.1 Total Bilirubin 0.65 AST 19 ALT 33 Alkaline Phosphatase 97 Troponin I 15 C-Reactive Protein 6.86 H Total Protein Albumin Lipase Urine Color Urine Clarity Urine pH Ur Specific [place] Urine Protein Urine Ketones Urine Blood Urine Nitrite Urine Bilirubin Urine Urobilinogen Ur Leukocyte Esterase Urine RBC Urine WBC Ur Epithelial Cells Urine Crystals Urine Bacteria Urine Casts Urine Mucus Ur Culture Indicated? Urine Glucose 04/23/24 04/23/24 04/23/24 11:31 11:31 12:27 WBC RBC Hgb Hct MCV MCH MCHC RDW Plt Count MPV Immature Gran % Neutrophils % Lymphocytes % Monocytes % Eosinophils % Basophils % Nucleated RBC % Absolute Neutrophils Absolute Lymphocytes Absolute Monocytes Absolute Eosinophils Absolute Basophils VBG Lactate Sodium Potassium Chloride Carbon Dioxide Anion Gap BUN Creatinine Est GFR (CKD-EPI 2020) Glucose Calcium Magnesium Total Bilirubin AST ALT Alkaline Phosphatase Troponin I C-Reactive Protein Cancelled Total Protein 6.6 Albumin 3.2 L Lipase 16 Cancelled Urine Color Yellow Urine Clarity Clear Urine pH 5.0 Ur Specific [place] 1.020 Urine Protein Negative Urine Ketones >=160 H Urine Blood Trace-lysed H Urine Nitrite Negative Urine Bilirubin Negative Urine Urobilinogen 0.2 Ur Leukocyte Esterase Negative Urine RBC 3-5 H Urine WBC 0-2 Ur Epithelial Cells Many Urine Crystals Negative Urine Bacteria Few Urine Casts 0-2 Coarse Granular Urine Mucus Trace Ur Culture Indicated? No Urine Glucose 500 H 04/23/24 Unknown WBC RBC Hgb Hct MCV MCH MCHC RDW Plt Count MPV Immature Gran % Neutrophils % Lymphocytes % Monocytes % Eosinophils % Basophils % Nucleated RBC % Absolute Neutrophils Absolute Lymphocytes Absolute Monocytes Absolute Eosinophils Absolute Basophils VBG Lactate Sodium Cancelled Potassium Cancelled Chloride Cancelled Carbon Dioxide Cancelled Anion Gap Cancelled BUN Cancelled Creatinine Cancelled Est GFR (CKD-EPI 2020) Cancelled Glucose Cancelled Calcium Cancelled Magnesium Cancelled Total Bilirubin AST ALT Alkaline Phosphatase Troponin I C-Reactive Protein Total Protein Albumin Lipase Urine Color Urine Clarity Urine pH Ur Specific [place] Urine Protein Urine Ketones Urine Blood Urine Nitrite Urine Bilirubin Urine Urobilinogen Ur Leukocyte Esterase Urine RBC Urine WBC Ur Epithelial Cells Urine Crystals Urine Bacteria Urine Casts Urine Mucus Ur Culture Indicated? Urine Glucose Time Spent with Patient Time Spent with Patient: >50 minutes Time was spent: preparing to see the patient(eg.review tests), obtaining and/or reviewing separately otained hiistory, ordering medications,tests, procedures, referring, communicating with other health health care law specialist, indepentently interpreting results, counseling the patient and care coordination
[2024-04-23] MEDS: Lactated Ringers 500 ML 1000 ML IV (13:35)
[2024-04-23] MEDS: Normal Saline 1,000 ML 125 ML IV (14:32)
[2024-04-23] MEDS: metroNIDAZOLE 500 MG/100 ML BAG 100 MG IVPB ×2 (14:34→20:27)
--- NOTE | 2024-04-23 14:56 | W.PC.ACHO ---
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) Pain due to total hip replacement Pain in hip region after hip replacement Trochanteric bursitis, right hip Bilateral hand pain TMJ (dislocation of temporomandibular joint) Dysmenorrhea Menorrhagia (Last Reviewed 04/22/24 @ 10:13 by Darnell Barboza) Hx of appendectomy H/O wrist surgery S/P repair of ligament of ankle History of tonsillectomy tennis elbow surgery L Uterine suspension with L partial salpingectomy Ligation of fallopian tube Total replacement of hip L5 herniated disc repair Colonoscopy - MAC (03/25/15) Most Recent Vital Signs Temperature 36.7 C 04/23/24 12:30 Temperature Source Temporal Artery Scan 04/23/24 12:30 Pulse 114 H 04/23/24 12:30 Pulse Rhythm Regular 04/21/24 13:40 Pulse Strength Normal 04/21/24 15:14 Pulse 135 H 04/22/24 10:26 Respiratory Rate 15 04/23/24 12:30 Respiratory Effort Normal, Non-Labored 04/21/24 15:14 Respiratory Depth Normal 04/21/24 15:14 Respiratory Pattern Normal 04/21/24 15:14 Blood Pressure 149/66 H 04/23/24 12:30 Blood Pressure Mean 83 04/22/24 10:26 Blood Pressure Position Sitting 04/21/24 15:14 Pulse Oximetry 96 04/23/24 12:30 Oxygen Delivery Method Room Air 04/23/24 12:30 Oxygen Flow Rate 0 04/23/24 12:30 Pain Level 7 04/23/24 07:22 Comment Before adenosine push 04/22/24 10:26 Allergies cephalexin monohydrate (From Keflex) Allergy (Intermediate, Verified 04/21/24 11:13) RASH chlorhexidine gluconate (From Hibiclens) Allergy (Intermediate, Verified 04/21/24 11:13) Skin Rash sulfamethoxazole (From Bactrim) Allergy (Intermediate, Verified 04/21/24 11:13) RASH trimethoprim (From Bactrim) Allergy (Intermediate, Verified 04/21/24 11:13) RASH adhesive Allergy (Unknown, Verified 04/21/24 11:13) Skin Rash Active Medications Generic Name Dose Route Start Last Admin Trade Name Freq PRN Reason Stop Dose Admin Duloxetine HCl 20 mg 04/22/24 20:00 04/22/24 19:53 Duloxetine 20 Mg Cap PO 20 mg HS DANIEL Administration Empagliflozin 25 mg 04/23/24 08:30 04/23/24 08:22 Empaglifozin 25 Mg Tab PO 25 mg DAILY DANIEL Administration Enoxaparin Sodium 40 mg 04/21/24 18:00 04/22/24 17:41 Enoxaparin 40 Mg/0.4 Ml Syr SC 40 mg Q24H DANIEL Administration Sodium Chloride 1,000 mls @ 125 mls/hr 04/23/24 12:15 04/23/24 14:32 Saline 1000ml Bag IV 125 mls/hr INFUSION DANIEL Administration Metronidazole 500 mg in 100 mls @ 100 mls/hr 04/23/24 14:00 04/23/24 14:34 Flagyl IVPB 100 mls/hr Q6H DANIEL Administration Insulin Aspart 0 units 04/22/24 16:30 04/22/24 21:22 Insulin Aspart 300 Units/3 Ml Pen SC 2 units AC & HS PRN Administration Protocol Iohexol 100 ml 04/23/24 13:15 04/23/24 13:13 Omnipaque 350 Mg/Ml 100 Ml Btl IJ 05/23/24 23:59 85 ml DIRECTED DANIEL Administration Lisinopril 5 mg 04/22/24 08:30 04/23/24 08:22 Lisinopril 5 Mg Tab PO 5 mg DAILY DANIEL Administration Morphine Sulfate 2 mg 04/21/24 16:44 04/22/24 08:32 Morphine 2 Mg/Ml Syr IVP 2 mg Q1H PRN PRN Administration Ondansetron HCl 4 mg 04/21/24 16:44 04/23/24 03:58 Ondansetron 4 Mg/2 Ml Vial IVP 4 mg Q4H PRN PRN Administration Pantoprazole Sodium 40 mg 04/21/24 18:00 04/22/24 17:41 Pantoprazole 40 Mg Vial IVP 40 mg Q24H DANIEL Administration Sodium Chloride 0 ml 04/21/24 11:23 04/21/24 11:56 Normal Saline Flush 10 Ml Syr IVP 10 ml PRN PRN Administration Sodium Chloride 0 ml 04/21/24 20:00 04/23/24 08:23 Normal Saline Flush 10 Ml Syr IVP 10 ml BID DANIEL Administration Sodium Chloride 50 ml 04/23/24 13:15 04/23/24 13:12 Normal Saline - Diluent 50 Ml Vial IJ 50 ml .FOR DI USE DANIEL Administration IV IV Catheter Type [Left Peripheral IV Antecubital] IV Catheter Type [Right Saline Lock Antecubital] IV Catheter Gauge [Left 20 Antecubital] IV Catheter Gauge [Right 18 Antecubital] Diet Orders Category Date Time Status npo [Nothing Per Oral] [DIET] Nutrition 04/23/24 Breakfast Active Diagnostics 04/23/24 04/23/24 04/23/24 Range/Units Unknown 12:27 11:31 WBC (4.4-10.8) 10^3/uL RBC (3.93-5.22) 10^6/uL Hgb (11.2-15.7) g/dL Hct (36.0-46.0) % MCV (80-95) fL MCH (27.0-33.0) pg MCHC (32.0-36.0) % RDW (11.7-14.6) % Plt Count (130-400) 10^3/uL MPV (8.0-11.0) fL Immature Gran % % Neutrophils % % Lymphocytes % % Monocytes % % Eosinophils % % Basophils % % Nucleated RBC % (0.0-0.3) % Absolute Neutrophils (1.2-6.7) 10^3/uL Absolute Lymphocytes (1.2-3.4) 10^3/uL Absolute Monocytes (0.1-0.8) 10^3/uL Absolute Eosinophils (0.0-0.7) 10^3/uL Absolute Basophils (0.0-0.2) 10^3/uL VBG Lactate (0.6-1.4) mmol/L Sodium Cancelled (136-145) mmol/L Potassium Cancelled (3.5-5.1) mmol/L Chloride Cancelled (98-107) mmol/L Carbon Dioxide Cancelled (21.0-32.0) mmol/L Anion Gap Cancelled (3-11) mmol/L BUN Cancelled (7-18) mg/dL Creatinine Cancelled (0.55-1.02) mg/dL Est GFR (CKD-EPI 2020) Cancelled (mL/min/1.73m2) Glucose Cancelled (74-106) mg/dL Calcium Cancelled (8.5-10.1) mg/dL Magnesium Cancelled (1.8-2.4) mg/dL Total Bilirubin (0.2-1.0) mg/dL AST (15-37) U/L ALT (14-59) U/L Alkaline Phosphatase (46-116) U/L C-Reactive Protein (<or=0.5) mg/dL Total Protein (6.4-8.2) g/dL Albumin (3.4-5.0) g/dL Lipase Cancelled (16-77) U/L Urine Color Yellow (Yellow) Urine Clarity Clear (Clear) Urine pH 5.0 (5-8) Ur Specific [place] 1.020 (1.005-1.025) Urine Protein Negative (Neg-Trace) mg/dL Urine Ketones >=160 H (Negative) mg/dL Urine Blood Trace-lysed H (Negative) Urine Nitrite Negative (Negative) Urine Bilirubin Negative (Negative) Urine Urobilinogen 0.2 (Up to 0.2) mg/dL Ur Leukocyte Esterase Negative (Negative) Urine RBC 3-5 H (0-2) HPF Urine WBC 0-2 (0-5) HPF Ur Epithelial Cells Many (Negative) HPF Urine Crystals Negative (Negative) HPF Urine Bacteria Few (Negative) HPF Urine Casts 0-2 Coarse Granular (Negative) LPF Urine Mucus Trace (Negative) Ur Culture Indicated? No Urine Glucose 500 H (Negative) mg/dL 04/23/24 04/23/24 04/23/24 Range/Units 11:31 11:31 06:45 WBC 13.04 H 11.90 H (4.4-10.8) 10^3/uL RBC 4.76 4.81 (3.93-5.22) 10^6/uL Hgb 14.1 14.3 (11.2-15.7) g/dL Hct 44.7 44.8 (36.0-46.0) % MCV 94 93 (80-95) fL MCH 29.6 29.7 (27.0-33.0) pg MCHC 31.5 L 31.9 L (32.0-36.0) % RDW 13.2 12.9 (11.7-14.6) % Plt Count 250 231 (130-400) 10^3/uL MPV 9.6 10.0 (8.0-11.0) fL Immature Gran % 0.6 % Neutrophils % 80.2 % Lymphocytes % 12.2 % Monocytes % 6.8 % Eosinophils % 0.0 % Basophils % 0.2 % Nucleated RBC % 0.0 (0.0-0.3) % Absolute Neutrophils 10.46 H (1.2-6.7) 10^3/uL Absolute Lymphocytes 1.59 (1.2-3.4) 10^3/uL Absolute Monocytes 0.89 H (0.1-0.8) 10^3/uL Absolute Eosinophils 0.00 (0.0-0.7) 10^3/uL Absolute Basophils 0.03 (0.0-0.2) 10^3/uL VBG Lactate 3.0 H* (0.6-1.4) mmol/L Sodium 135 L 134 L (136-145) mmol/L Potassium 5.1 5.3 H D (3.5-5.1) mmol/L Chloride 103 103 (98-107) mmol/L Carbon Dioxide 10.0 L 8.2 L (21.0-32.0) mmol/L Anion Gap 22.0 H 22.8 H (3-11) mmol/L BUN 27 H 24 H (7-18) mg/dL Creatinine 1.4 H 1.1 H (0.55-1.02) mg/dL Est GFR (CKD-EPI 2020) 43.07 57.52 (mL/min/1.73m2) Glucose 279 H 247 H (74-106) mg/dL Calcium 9.1 9.2 (8.5-10.1) mg/dL Magnesium 2.1 (1.8-2.4) mg/dL Total Bilirubin 0.65 (0.2-1.0) mg/dL AST 19 (15-37) U/L ALT 33 (14-59) U/L Alkaline Phosphatase 97 (46-116) U/L C-Reactive Protein Cancelled 6.86 H (<or=0.5) mg/dL Total Protein 6.6 (6.4-8.2) g/dL Albumin 3.2 L (3.4-5.0) g/dL Lipase 16 (16-77) U/L Urine Color (Yellow) Urine Clarity (Clear) Urine pH (5-8) Ur Specific [place] (1.005-1.025) Urine Protein (Neg-Trace) mg/dL Urine Ketones (Negative) mg/dL Urine Blood (Negative) Urine Nitrite (Negative) Urine Bilirubin (Negative) Urine Urobilinogen (Up to 0.2) mg/dL Ur Leukocyte Esterase (Negative) Urine RBC (0-2) HPF Urine WBC (0-5) HPF Ur Epithelial Cells (Negative) HPF Urine Crystals (Negative) HPF Urine Bacteria (Negative) HPF Urine Casts (Negative) LPF Urine Mucus (Negative) Ur Culture Indicated? Urine Glucose (Negative) mg/dL 04/23/24 13:37 Blood Culture - Pending Blood [id number] Documentation Fingerstick Glucose Start: 04/21/24 16:48 Freq: AC & HS Status: Active Protocol: Activity Type Activity Date Activity User E-sign Co-sign Detail Recorded Client Recorded Date Recorded By Document 04/23/24 11:12 LELA MENDOZA(3) [id number] 04/23/24 11:14 LELA MENDOZA(4) Intake and Output - 24 Hour Total 04/21/24 11:06 thru 04/23/24 14:28 Intake Total 5840.000 Output Total 4400 Balance 1440.000 Weight 80.1 kg Intake: IV 5720.000 Intake, Tube Feeding Amount 120 Output: Gastric Drainage 100 Right Nare 100 Urine 4300 Other: Urine Color Pale Yellow Urine Appearance Clear Urine Odor None Stool Size Small Emesis Description None Voiding Methods Toilet Falls Risk Assessment History of Falls No History 04/21/24 11:39 Contributing Factors No Factors 04/21/24 11:39 Ambulatory Aids Independent 04/21/24 11:39 Tubes/Lines None 04/21/24 11:39 Gait Evaluation No gait disturbance 04/21/24 11:39 Cognition No cognitive impairment 04/21/24 11:39 Fall Total Score 0 04/21/24 11:39 Level of Risk Standard/Low Risk 04/21/24 11:39 Problems (Last Reviewed 04/22/24 @ 10:13 by Darnell Barboza) Abdominal pain (Acute) Lactic acid acidosis (Acute) SVT (supraventricular tachycardia) (Chronic) SBO (small bowel obstruction) (Acute) GARRY (obstructive sleep apnea) (Chronic) 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 Pt said she will ask her to bring it here so she can start using. Initialized on 04/23/24 08:29 - END OF NOTE 04/22/24 09:27 Nursing Notes by Dane Lopes Sugical provider unavailable, On site MD barboza notified of tachycardia, on set of nausea and stomach pain not relieved by Morphine and Zofran. EKG ordered and preformed by RT, Teley ordered and patient was put in it for continuous monitoring. RN attempted to have pt bear down while blowing through a straw however it was not effective. MD Barboza ordered mag sulfate one time dose stat. Pt continues with HR in 140s. Nursing Note: Initialized on 04/22/24 09:27 - END OF NOTE 04/22/24 08:13 Nursing Notes by Dane Lopes pt verbalized her heart feels like its beating out of her chest, with nausea and right sided shoulder pain. Lencho PHIPPS MD notfied. Nursing Note: Initialized on 04/22/24 08:13 - END OF NOTE 04/22/24 05:19 Nursing Notes by Gary Cornelius NG tube check, I was called to assist at bedside to assess NG tube. Most recent X-ray demonstrated adequate placement into the tip of the stomach. NG tube was indeed on low intermittent suction. pt has been up to ambulate and clamped tonight. I did flush the patients NG tube with 30ml of water, as there was concern for patency. NG tube did flush without resistance, NG tube was replaced to low intermittent suction and did return approximately 30ml of water. NG tube dwells in pts right nare, tape is securing tube in place. at approximately 58cm Nursing Note: Initialized on 04/22/24 05:19 - END OF NOTE 04/21/24 15:37 Nursing Notes by Nkechi Baires Nursing Note: 1455: put 120 ml of gastrograph in NG and clamped it. 1535: unclamped NG and put it back to lower intermittent wall suction and xray called to do xray Initialized on 04/21/24 15:37 - END OF NOTE v v v v v v v v v Sending and/or Receiving Nurses: Please use comment section below to note any information pertinent to the patient hand-off not included above. Information / Comments: Report received from: LINDA Wesley
[2024-04-23] MEDS: Acetaminophen 325 MG TAB 650 MG PO ×2 (15:47→22:52)
[2024-04-23] MEDS: INSULIN REGULAR IN 0.9 % NACL 100 UNIT/100 ML BAG IV (15:48)
[2024-04-23] MEDS: levoFLOXacin 500 MG/100 ML BAG 100 MG IVPB (18:12)
[2024-04-23] MEDS: Enoxaparin 40 MG/0.4 ML SYR SC (18:30)
[2024-04-23] MEDS: Pantoprazole 40 MG VIAL IVP (18:31)
[2024-04-23 18:36] LABS: Anion Gap 22.5 mmol/L (3-11); BUN 31 mg/dL (7-18); CO2 8.5 mmol/L (21.0-32.0); CREATININE 1.3 mg/dL (0.55-1.02); Chloride 107 mmol/L (98-107); Estimated GFR 47.08 (mL/min/1.73m2); Glucose 224 mg/dL (74-106); Potassium 5.1 mmol/L (3.5-5.1); Sodium 138 mmol/L (136-145)
[2024-04-23] MEDS: DULoxetine 20 MG CAP PO (19:40)
[2024-04-23] MEDS: DEXTROSE 5%-LACTATED RINGERS 1,000 ML 150 ML IV (21:43)
[2024-04-23 22:09] LABS: Anion Gap 18.8 mmol/L (3-11); BUN 31 mg/dL (7-18); CO2 12.2 mmol/L (21.0-32.0); CREATININE 1.2 mg/dL (0.55-1.02); Calcium 8.9 mg/dL (8.5-10.1); Chloride 108 mmol/L (98-107); Estimated GFR 51.82 (mL/min/1.73m2); Glucose 120 mg/dL (74-106); Potassium 4.7 mmol/L (3.5-5.1); Sodium 139 mmol/L (136-145)
[2024-04-23 23:53] LABS: Lactate 0.9 mmol/L (0.6-1.4)
[2024-04-24] VITALS (20 sets, daily range): BP systolic 110–135; BP diastolic 49–78; PULSE 90–120; RESP 9–34; TEMP 36.9; O2SAT 94–97
[2024-04-24 00:04] LABS: Anion Gap 16.3 mmol/L (3-11); BUN 32 mg/dL (7-18); CO2 13.7 mmol/L (21.0-32.0); CREATININE 1.1 mg/dL (0.55-1.02); Calcium 8.5 mg/dL (8.5-10.1); Chloride 107 mmol/L (98-107); Estimated GFR 57.52 (mL/min/1.73m2); Glucose 149 mg/dL (74-106); Potassium 4.4 mmol/L (3.5-5.1); Sodium 137 mmol/L (136-145)
[2024-04-24] MEDS: metroNIDAZOLE 500 MG/100 ML BAG 100 MG IVPB ×4 (01:31→19:52)
[2024-04-24 02:26] LABS: Anion Gap 11.7 mmol/L (3-11); BUN 31 mg/dL (7-18); CO2 17.3 mmol/L (21.0-32.0); CREATININE 1.1 mg/dL (0.55-1.02); Calcium 8.6 mg/dL (8.5-10.1); Chloride 109 mmol/L (98-107); Estimated GFR 57.52 (mL/min/1.73m2); Glucose 167 mg/dL (74-106); Potassium 4.1 mmol/L (3.5-5.1); Sodium 138 mmol/L (136-145)
[2024-04-24] MEDS: DEXTROSE 5%-LACTATED RINGERS 1,000 ML 200 ML IV ×3 (03:48→14:27)
[2024-04-24 03:58] LABS: Anion Gap 11.9 mmol/L (3-11); BUN 29 mg/dL (7-18); CO2 17.1 mmol/L (21.0-32.0); Calcium 8.4 mg/dL (8.5-10.1); Chloride 110 mmol/L (98-107); Estimated GFR 64.49 (mL/min/1.73m2); Glucose 153 mg/dL (74-106); Potassium 3.8 mmol/L (3.5-5.1); Sodium 139 mmol/L (136-145)
[2024-04-24 06:58] LABS: Abs Immature Grans 0.08 10^3/uL (0.0-0.06); Absolute Basophil Count 0.03 10^3/uL (0.0-0.2); Absolute Eosinophil Count 0.03 10^3/uL (0.0-0.7); Absolute Lymphocyte Count 1.58 10^3/uL (1.2-3.4); Absolute Monocyte Count 0.97 10^3/uL (0.1-0.8); Absolute Neutrophil Count 6.18 10^3/uL (1.2-6.7); Basophils % 0.3 %; Eosinophils % 0.3 %; HCT 34.1 % (36.0-46.0); HGB 11.3 g/dL (11.2-15.7); Immature Grans % 0.9 %; Lymphocytes % 17.8 %; MCH 29.9 pg (27.0-33.0); MCHC 33.1 % (32.0-36.0); MCV 90 fL (80-95); MPV 9.6 fL (8.0-11.0); Monocytes % 10.9 %; Neutrophils % 69.8 %; Platelet Count 176 10^3/uL (130-400); RBC 3.78 10^6/uL (3.93-5.22); RDW 13.3 % (11.7-14.6); WBC 8.87 10^3/uL (4.4-10.8)
[2024-04-24 07:10] LABS: Anion Gap 10.8 mmol/L (3-11); BUN 28 mg/dL (7-18); CO2 20.2 mmol/L (21.0-32.0); Calcium 8.5 mg/dL (8.5-10.1); Chloride 109 mmol/L (98-107); Estimated GFR 64.49 (mL/min/1.73m2); Glucose 126 mg/dL (74-106); Potassium 3.5 mmol/L (3.5-5.1); Sodium 140 mmol/L (136-145)
--- NOTE | 2024-04-24 08:54 | PDOC.CMPRO ---
Date of service: 04/24/24 Time of Service: 08:54 Care Management Progress Note Progress Note Text Progress Note Text: Chandrika was transferred to the ICU yesterday due to worsening labs indicating DKA. When CM met with her this afternoon, she was in bed, HOB up, and her was by her side. She looked a lot better than yesterday, and stated she felt better. She was pleasant and engaged easily. She had good color, and her eyes were clear. Her also remarked on how much better Chandrika's color is today. Chandrika is eager to go home, but knows that she is not ready. She is still being kept NPO and has running IVF and an insulin drip. Chandrika is having q1h glucose checks, and her insulin dose was able to be decreased this am, Chandrika and her took that as a win. Discharge Potential Discharge Needs: PCP F/U Appt and Other (possible f/u with cardiology and endocrinology) Anticipated Barriers to Discharge: None Identified Patient/Family Education Needs: Review discharge instructions, discuss Ask Me Three Transportation: Private vehicle ([facility], , will transport Chandrika when she is medically ready.) Plan: Anticipate that Chandrika will be discharged home with no new services once medically stable. She will f/u with her PCP, and perhaps be referred to endocrinology and/or cardiology. She will transport home in with her , [facility], and continue per the prescribed plan of care. CM will continue to follow. SDOH(Care Management) Screening Will the Patient Participate in the Screening?: Yes Do you worry about having a steady place to live?: no In the past 12 months, have you had to go without electric, gas, oil or water in your home?: no Have you or anyone in your house had to go without enough food to eat?: no Has lack of transportation kept you from medical appointments or from doing things needed for daily living?: no Has anyone in your support network made you feel unsafe for any reason?: no Social Determinants of Health Comments(SDOH Details): reviewed with patient 04/22/24 Health Related Social Needs Health related social needs details: denies
[2024-04-24] MEDS: Normal Saline Flush 10 ML SYR IVP ×3 (09:10→19:51)
[2024-04-24] MEDS: Acetaminophen 325 MG TAB 650 MG PO (09:16)
--- NOTE | 2024-04-24 14:18 | PGE_ITS ---
Date of Service Date of service: 04/24/24 Time of Service: 14:18 Assessment and Plan Assessment and plan (1) Abdominal pain: Status: Acute Assessment and plan: -initially admitted for SBO, but has been passing gas/having BMs -but now with worse pain and elevating WBC and lactic acidosis, renal dysfunction c/w developing severe sepsis Repeat CT abd/pelvis ordered by surgery Starting antibiotics, with cephalexin allergy will use levofloxacin and metronidazole Monitor closely, she may need to go to ICU Qualifiers: Abdominal location: upper abdomen, unspecified Qualified Code(s): R10.10 - Upper abdominal pain, unspecified (2) Severe sepsis: Status: Acute Assessment and plan: -developed worsening abdominal pain 04/23 with elevated WBCs, tachycardia, and LA of 3.0 -however, after additional imaging no source of infection was identified as CXR was clear, abdominal CT without acute findings, andUA negative -patient was started on levaquin and flagyl, and has experienced significant improvement as of 04/24 (3) Lactic acid acidosis: Status: Acute Assessment and plan: -as noted above (4) SVT (supraventricular tachycardia): Status: Chronic Assessment and plan: -Acute onset 04/22, stable, symptoms minor. EKG not ischemic, troponins, and TSH normal. CTA negative for PE. Most likely simply triggered by vomiting. - Hypomagnesemia being supplemented, should help stabilized heart - She did not respond to vagal maneuvers or carotid massage so treated with adenosine. 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 Exam Narrative Exam Narrative: Well-appearing female laying in bed in no acute distress, ANO x 4, heart regular rhythm, lungs clear to auscultation bilaterally, abdomen soft, with mild diffuse tenderness, no guarding or rebound Objective Last Vital Signs Temp 98.4 F 04/24/24 00:01 Pulse 92 H 04/24/24 12:01 Resp 15 04/24/24 12:01 BP 110/63 04/24/24 12:01 Pulse Ox 94 04/24/24 12:01 Laboratory Results - last 24 hr 04/23/24 04/23/24 04/23/24 15:23 17:57 19:23 WBC RBC Hgb Hct MCV MCH MCHC RDW Plt Count MPV Immature Gran % Neutrophils % Lymphocytes % Monocytes % Eosinophils % Basophils % Nucleated RBC % Absolute Neutrophils Absolute Lymphocytes Absolute Monocytes Absolute Eosinophils Absolute Basophils VBG Lactate Sodium Cancelled 138 Cancelled Potassium Cancelled 5.1 Cancelled Chloride Cancelled 107 Cancelled Carbon Dioxide Cancelled 8.5 L Cancelled Anion Gap Cancelled 22.5 H Cancelled BUN Cancelled 31 H Cancelled Creatinine Cancelled 1.3 H Cancelled Est GFR (CKD-EPI 2020) Cancelled 47.08 Cancelled Glucose Cancelled 224 H Cancelled Calcium Cancelled 9.0 Cancelled 04/23/24 04/23/24 04/24/24 21:20 23:40 01:40 WBC RBC Hgb Hct MCV MCH MCHC RDW Plt Count MPV Immature Gran % Neutrophils % Lymphocytes % Monocytes % Eosinophils % Basophils % Nucleated RBC % Absolute Neutrophils Absolute Lymphocytes Absolute Monocytes Absolute Eosinophils Absolute Basophils VBG Lactate 0.9 Sodium 139 137 138 Potassium 4.7 4.4 4.1 Chloride 108 H 107 109 H Carbon Dioxide 12.2 L 13.7 L 17.3 L Anion Gap 18.8 H 16.3 H 11.7 H BUN 31 H 32 H 31 H Creatinine 1.2 H 1.1 H 1.1 H Est GFR (CKD-EPI 2020) 51.82 57.52 57.52 Glucose 120 H 149 H 167 H Calcium 8.9 8.5 8.6 04/24/24 04/24/24 03:35 05:30 WBC 8.87 RBC 3.78 L Hgb 11.3 D Hct 34.1 L MCV 90 D MCH 29.9 MCHC 33.1 RDW 13.3 Plt Count 176 MPV 9.6 Immature Gran % 0.9 Neutrophils % 69.8 Lymphocytes % 17.8 Monocytes % 10.9 Eosinophils % 0.3 Basophils % 0.3 Nucleated RBC % 0.0 Absolute Neutrophils 6.18 Absolute Lymphocytes 1.58 Absolute Monocytes 0.97 H Absolute Eosinophils 0.03 Absolute Basophils 0.03 VBG Lactate Sodium 139 140 Potassium 3.8 3.5 Chloride 110 H 109 H Carbon Dioxide 17.1 L 20.2 L Anion Gap 11.9 H 10.8 BUN 29 H 28 H Creatinine 1.0 1.0 Est GFR (CKD-EPI 2020) 64.49 64.49 Glucose 153 H 126 H Calcium 8.4 L 8.5 Time Spent with Patient Time Spent with Patient: >50 minutes Time was spent: preparing to see the patient(eg.review tests), obtaining and/or reviewing separately otained hiistory, ordering medications,tests, procedures, referring, communicating with other health acute care surgeon, indepentently interpreting results, counseling the patient and care coordination
[2024-04-24] MEDS: levoFLOXacin 250 MG/50 ML BAG 50 MG IVPB (16:30)
--- NOTE | 2024-04-24 17:56 | W.PM.PROGNOT ---
Date of Service Date of service: 04/24/24 Time of Service: 09:00 Assessment and Plan Assessment and plan (1) SBO (small bowel obstruction): Status: Acute Assessment and plan: Partial small bowel obstruction is completely resolved. Patient can be advanced to a diabetic diet as tolerated. Patient will transfer to the hospitalist service. General surgery will be available as needed. (2) DKA (diabetic ketoacidosis): Status: Acute Assessment and plan: Management per hospitalist Qualifiers: Diabetes mellitus type: type 2 Diabetes mellitus complication detail: without coma Qualified Code(s): E11.10 - Type 2 diabetes mellitus with ketoacidosis without coma Subjective Subjective Interval history since last seen: Patient is a 58-year-old female who initially came in with some abdominal pain and nausea and vomiting. There was concern for partial small bowel obstruction which has resolved. Yesterday we diagnosed her with DKA. She was transferred to the ICU and has been under management of the hospitalist since then. She has made good progress overnight. Her white blood cell count has normalized, blood sugars have come down, acidosis is resolving, and electrolytes are normalizing. She has been sleeping a lot. She is easily arousable. She reports feeling better. She complains of some mild upper abdominal tenderness as usual. No worsening and likely improving. Exam Narrative Exam Narrative: General?lying in bed with head of bed elevated, easily arousable, oriented, no apparent distress HEENT?sclera anicteric, mucous membranes moist, normocephalic, atraumatic Respiratory?unlabored, no use of accessory muscles Abdomen?soft, mildly tender to palpation across the upper abdomen, nondistended, no guarding, no rebound Extremities?moves all extremities, no gross edema Objective Last Vital Signs Temp 36.9 C 04/24/24 00:01 Pulse 96 H 04/24/24 16:01 Resp 9 L 04/24/24 16:01 BP 113/62 04/24/24 16:01 Pulse Ox 96 04/24/24 16:01 Laboratory Results - last 24 hr 04/23/24 04/23/24 04/23/24 15:23 17:57 19:23 WBC RBC Hgb Hct MCV MCH MCHC RDW Plt Count MPV Immature Gran % Neutrophils % Lymphocytes % Monocytes % Eosinophils % Basophils % Nucleated RBC % Absolute Neutrophils Absolute Lymphocytes Absolute Monocytes Absolute Eosinophils Absolute Basophils VBG Lactate Sodium Cancelled 138 Cancelled Potassium Cancelled 5.1 Cancelled Chloride Cancelled 107 Cancelled Carbon Dioxide Cancelled 8.5 L Cancelled Anion Gap Cancelled 22.5 H Cancelled BUN Cancelled 31 H Cancelled Creatinine Cancelled 1.3 H Cancelled Est GFR (CKD-EPI 2020) Cancelled 47.08 Cancelled Glucose Cancelled 224 H Cancelled Calcium Cancelled 9.0 Cancelled 04/23/24 04/23/24 04/24/24 21:20 23:40 01:40 WBC RBC Hgb Hct MCV MCH MCHC RDW Plt Count MPV Immature Gran % Neutrophils % Lymphocytes % Monocytes % Eosinophils % Basophils % Nucleated RBC % Absolute Neutrophils Absolute Lymphocytes Absolute Monocytes Absolute Eosinophils Absolute Basophils VBG Lactate 0.9 Sodium 139 137 138 Potassium 4.7 4.4 4.1 Chloride 108 H 107 109 H Carbon Dioxide 12.2 L 13.7 L 17.3 L Anion Gap 18.8 H 16.3 H 11.7 H BUN 31 H 32 H 31 H Creatinine 1.2 H 1.1 H 1.1 H Est GFR (CKD-EPI 2020) 51.82 57.52 57.52 Glucose 120 H 149 H 167 H Calcium 8.9 8.5 8.6 04/24/24 04/24/24 03:35 05:30 WBC 8.87 RBC 3.78 L Hgb 11.3 D Hct 34.1 L MCV 90 D MCH 29.9 MCHC 33.1 RDW 13.3 Plt Count 176 MPV 9.6 Immature Gran % 0.9 Neutrophils % 69.8 Lymphocytes % 17.8 Monocytes % 10.9 Eosinophils % 0.3 Basophils % 0.3 Nucleated RBC % 0.0 Absolute Neutrophils 6.18 Absolute Lymphocytes 1.58 Absolute Monocytes 0.97 H Absolute Eosinophils 0.03 Absolute Basophils 0.03 VBG Lactate Sodium 139 140 Potassium 3.8 3.5 Chloride 110 H 109 H Carbon Dioxide 17.1 L 20.2 L Anion Gap 11.9 H 10.8 BUN 29 H 28 H Creatinine 1.0 1.0 Est GFR (CKD-EPI 2020) 64.49 64.49 Glucose 153 H 126 H Calcium 8.4 L 8.5 Time Spent with Patient Time Spent with Patient: <25 minutes Time was spent: indepentently interpreting results, counseling the patient and care coordination
[2024-04-24] MEDS: Pantoprazole 40 MG VIAL IVP (17:59)
[2024-04-24] MEDS: Enoxaparin 40 MG/0.4 ML SYR SC (17:59)
[2024-04-24 19:42] LABS: Anion Gap 8.7 mmol/L (3-11); BUN 20 mg/dL (7-18); CO2 22.3 mmol/L (21.0-32.0); CREATININE 0.8 mg/dL (0.55-1.02); Calcium 8.2 mg/dL (8.5-10.1); Chloride 108 mmol/L (98-107); Glucose 280 mg/dL (74-106); Potassium 3.8 mmol/L (3.5-5.1); Sodium 139 mmol/L (136-145)
[2024-04-24] MEDS: DULoxetine 20 MG CAP PO (20:07)
[2024-04-24] MEDS: Insulin Aspart 300 UNITS/3 ML PEN SC (20:17)
[2024-04-25] VITALS (7 sets, daily range): BP systolic 140–149; BP diastolic 71–78; PULSE 91–113; RESP 11–19; TEMP 36.7–37; O2SAT 95–98
[2024-04-25] MEDS: Melatonin 3 MG TAB 6 MG PO (00:34)
[2024-04-25] MEDS: metroNIDAZOLE 500 MG/100 ML BAG 100 MG IVPB ×2 (01:54→09:28)
[2024-04-25 05:55] LABS: HCT 35.7 % (36.0-46.0); HGB 11.8 g/dL (11.2-15.7); MCH 29.4 pg (27.0-33.0); MCHC 33.1 % (32.0-36.0); MCV 89 fL (80-95); MPV 9.6 fL (8.0-11.0); Platelet Count 157 10^3/uL (130-400); RBC 4.01 10^6/uL (3.93-5.22); RDW 13.2 % (11.7-14.6); RDW-SD 43.5 fL; WBC 6.44 10^3/uL (4.4-10.8)
[2024-04-25 06:14] LABS: Anion Gap 10.9 mmol/L (3-11); BUN 16 mg/dL (7-18); CO2 23.1 mmol/L (21.0-32.0); CREATININE 0.7 mg/dL (0.55-1.02); Calcium 8.1 mg/dL (8.5-10.1); Chloride 106 mmol/L (98-107); Estimated GFR 98.95 (mL/min/1.73m2); Glucose 203 mg/dL (74-106); Potassium 3.5 mmol/L (3.5-5.1); Sodium 140 mmol/L (136-145)
[2024-04-25] MEDS: Insulin Aspart 300 UNITS/3 ML PEN SC ×2 (09:22→11:51)
[2024-04-25] MEDS: Normal Saline Flush 10 ML SYR IVP (09:59)
[2024-04-25] MEDS: Pantoprazole 40 MG TABCR PO (11:48)
--- NOTE | 2024-04-25 14:26 | W.PM.DS.N ---
Date of service: 04/25/24 Time of Service: 14:37 DS: Diagnosis Discharge Diagnosis (1) SBO (small bowel obstruction): Status: Acute (2) DKA (diabetic ketoacidosis): Status: Acute Discharge Plan Disposition Patient Disposition: Home Condition: Good Discharge Details Reason For Visit: SBO Admit Date/Time: 04/21/24 16:45 Admit Provider: Yuliya Martinez Attending Provider: Yuliya Martinez Primary Care Provider: Genie Abdullahi Hospital Course Hospital Course: Patient initially presented to the ED with upper abdominal pain and bloating with nausea and vomiting concerning for small bowel obstruction. Additionally, patient was hospital she had episode of SVT triggered by vomiting that required a dose of adenosine and resulted in conversion to normal sinus rhythm however patient remained mildly tachycardic. . However, while the SBO resolved with placement of NG tube not requiring surgical intervention, patient was transferred to the ICU where she was found to have DKA. There was initial concern for possible sepsis as her white blood cell count and lactic acid elevated but these were likely secondary to DKA. Patient was placed on insulin drip with resolution/closing of her anion gap. She was able to tolerate p.o. intake and was transition back to her sliding scale insulin regimen. Given the patient was back on her regular insulin regimen, tolerating p.o. intake and having bowel movements determined that she was stable for discharge home. Home Meds and New Rx's Prescriptions: Continued aspirin [Adult Aspirin Regimen] 81 mg tablet,delayed release (DR/EC) 81 mg PO DAILY ferrous sulfate [iron] 325 mg (65 mg iron) tablet 325 mg PO DAILY Patient Comments: Blood test resulted in low iron level Estring 2 mg (7.5 mcg /24 hour) ring 1 vag ring VG [id number] Qty: 1 4RF Patient Comments: Pt states this is not in right now.HE insulin lispro [Humalog U-100 Insulin] 100 unit/mL solution 1 sliding scale dose subcut USEASDIRECTD indomethacin 25 mg capsule 25 mg PO BID PRN Rx Instructions: administer with food or milk-migraines ascorbic acid (vitamin C) [Vitamin C With Risa Hips] 1,000 MG tablet 1,000 mg PO DAILY cyanocobalamin (vitamin B-12) [Vitamin B-12] 1,000 MCG tablet 1,000 mcg PO DAILY lisinopril 5 MG tablet 5 mg PO DAILY Ca-D3-mag sx-lydo-zgw-davey-bor 1 EACH tablet,chewable 1 ea PO DAILY omeprazole 20 MG capsule,delayed release(DR/EC) 20 mg PO DAILY rosuvastatin [Crestor] 20 MG tablet 20 mg PO QPM celecoxib [Celebrex] 200 mg capsule 400 mg PO DAILY duloxetine 20 mg capsule,delayed release(DR/EC) 20 mg PO DAILY Jardiance 25 mg tablet 25 mg PO DAILY No Action (DME) Orthotic See Rx Instructions .Route .MEDSUPPLY Qty: 1 0RF Rx Instructions: She needs some sort of shoe lift as she is pirouetting of the much longer left leg. Discharge Instructions Activity:: Activity as Tolerated Equipment/Supplies:: No Equipment Needed Diet:: As Tolerated DS: Summary Time Spent with Patient providing and/or coordinating discharge services: Greater than 30 minutes Status at Discharge Functional status at discharge: independent ambulation Overall status at discharge: patient is back to baseline Mental Status: mental status grossly normal Speech and Movement: speech and movement normal Mood: congruent mood Affect: normal affect Quality:SDOH Health Related Social Needs: Health related social needs details denies Health related social needs details: denies Exam Narrative Exam Narrative: Well-appearing female laying in bed in no acute distress, ANO x 4, heart regular rhythm, lungs clear to auscultation bilaterally, abdomen soft, with mild diffuse tenderness, no guarding or rebound Psych Mental Status: mental status grossly normal Speech and Movement: speech and movement normal Mood: congruent mood Affect: normal affect DS: Data Vitals/I&O Vitals and I&O: Vital Signs Temperature 98.6 F 04/25/24 00:00 Temperature Source Temporal Artery Scan 04/23/24 15:30 Pulse 105 H 04/25/24 10:10 Pulse Rhythm Regular 04/21/24 13:40 Pulse Strength Normal 04/21/24 15:14 Pulse 110 H 04/25/24 12:00 Respiratory Rate 19 04/25/24 10:11 Respiratory Effort Normal 04/23/24 15:30 Respiratory Depth Normal 04/23/24 15:30 Respiratory Pattern Normal 04/23/24 15:30 Blood Pressure 149/75 H 04/25/24 10:10 Blood Pressure Mean 94 04/25/24 10:10 Blood Pressure Position Sitting 04/23/24 15:30 Pulse Oximetry 97 04/25/24 12:00 Oxygen Delivery Method Room Air 04/23/24 15:30 Oxygen Flow Rate 0 04/23/24 15:30 Pain Level 7 04/23/24 15:30 Comment Before adenosine push 04/22/24 10:26 Intake & Output 04/24/24 04/25/24 04/25/24 17:59 05:59 17:59 Intake Total 2765.650 / 2765.650 150 / 2915.650 730 / 730 Output Total 1949 450 / 450 Balance 2765.650 / 2765.650 -1800 / 965.650 280 / 280 Intake: IV 2765.650 / 2765.650 150 / 2915.650 230 / 230 Oral 500 / 500 Output: Urine 1949 450 / 450 Other: Urine Color Light Cierra Yellow Urine Appearance Cloudy Cloudy Urine Odor Strong Strong Comment Mixed with stool Mixed w stool, immeasurable Stool Size Small Small Stool Characteristics Soft Liquid Brown Brown Voiding Methods Bedside Commode Bedside Commode Data Completed and Pending Labs on day of discharge: Labs from last 24 hours 04/25/24 04/24/24 05:30 19:20 WBC 6.44 RBC 4.01 Hgb 11.8 Hct 35.7 L MCV 89 MCH 29.4 MCHC 33.1 RDW 13.2 Plt Count 157 MPV 9.6 Sodium 140 139 Potassium 3.5 3.8 Chloride 106 108 H Carbon Dioxide 23.1 22.3 Anion Gap 10.9 8.7 BUN 16 20 H Creatinine 0.7 0.8 Est GFR (CKD-EPI 2020) 98.95 84.30 Glucose 203 H 280 H Calcium 8.1 L 8.2 L Preliminary micro results at discharge 04/23/24 13:37 Blood Culture - Preliminary Blood NO GROWTH 24 HOURS PFSH All Active Problems (Updated 04/25/24 @ 13:55 by Jose Brown MD) Severe sepsis (Acute) Sepsis (Acute) DKA (diabetic ketoacidosis) (Acute) Tachycardia (Acute) Abdominal pain (Acute) Lactic acid acidosis (Acute) SVT (supraventricular tachycardia) (Chronic) SBO (small bowel obstruction) (Acute) Lumbosacral spondylosis without myelopathy (Acute) Bilateral sensorineural hearing loss (Acute) Excessive cerumen in right ear canal (Acute) Foot pain, right (Acute) Insomnia (Acute) GARRY (obstructive sleep apnea) (Chronic) 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), managed as type 1 (Acute) Medial epicondylitis of left elbow (Acute) Post-menopausal bleeding (Acute) Lower limb length difference (Acute) Iliotibial band syndrome affecting right lower leg (Acute) Arthritis of right ankle (Acute) Pain of left foot (Acute) Hip pain, right (Acute) Arthritis (Acute 04/12/14) Atrophic vaginitis (Acute 06/18/17) Elevated lipids (Acute 06/18/17) GERD (gastroesophageal reflux disease) (Acute 04/12/14) HTN (hypertension) (Acute 04/12/14) Hyperlipidemia (Acute 04/12/14) Lichen sclerosus (Acute 06/18/17) Migraine (Acute 04/12/14) Spondylosis of lumbar region without myelopathy or radiculopathy (Chronic) Medical History Neutropenia mild Neuritis of left ulnar nerve Yeast vaginitis 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 Pain due to total hip replacement Pain in hip region after hip replacement Trochanteric bursitis, right hip Bilateral hand pain TMJ (dislocation of temporomandibular joint) pt. denies this Dysmenorrhea Menorrhagia Surgical History Hx of appendectomy H/O wrist surgery S/P repair of ligament of ankle History of tonsillectomy tennis elbow surgery L Left elbow 2001 Right elbow surgery for tendonitis 2006 Uterine suspension with L partial salpingectomy 1996 Ligation of fallopian tube Total replacement of hip Right hip 2006 L5 herniated disc repair 08/2013 [facility] [place] Colonoscopy - MAC (03/25/15) DR.TERRY KEBEDE Family History Mother Personal history of malignant neoplasm Breast cancer Father Hyperlipidemia Sister Hodgkin's disease Other Diabetes Social History Smoking/Tobacco Use Status: Never Smoking risk assessment performed?: Yes Alcohol Intake: current Alcohol Intake frequency: holidays/special occasions only Drug use: Never Substance use type: does not use Details: uses cbd oil for leg cramps Housing: house Do you feel safe at home: Yes Do you feel safe in your relationship?: Yes History History 2 Para 1 Hx # Term Pregnancies Multiple births Hx # Pregnancies Ectopic pregnancies AB induced Hx Number of Living Children AB spontaneous Time Spent with Patient Time Spent with Patient: <45 minutes Time was spent: preparing to see the patient(eg.review tests), obtaining and/or reviewing separately otained hiistory, ordering medications,tests, procedures, referring, communicating with other health child care associate, indepentently interpreting results, counseling the patient and care coordination
--- NOTE | 2024-04-25 18:32 | PDOC.CMDIS ---
Date of service: 04/25/24 Time of Service: 18:32 LACE Index Scoring Tool Questions: Length of Stay (in days): 4 - 6 Was the patient admitted via the E.D.?: Yes Comorbidities: Diabetes w/o Complication E.D. Visits: 0 Answers: Total Score: 8 Risk of Readmission: Low Risk Care Management Discharge Plan Reason for Hospitalization: SBO Discharge Plan: Chandrika returned home today with no new services. Her drove her home via private vehicle. She will follow up with her PCP and discharge plan of care. She was happy to be going home. Patient/Family Education Needs: Review discharge instructions and limitations, discussion of self care needs including ask me three. SDOH Health Related Social Needs: Health related social needs details denies Health related social needs details: denies
== END 2024-04-25 15:10 | disposition home or self-care (01) | DRG 389 ==
LOC: ER 17:50 → MS 17:54 → ICU 04-23 15:23
PROVIDERS: Family Medicine; Surgery; Admitting Provider Surgery; Emergency Provider Emergency Medicine; PCP Family Medicine; Visit Provider Surgery
DX: K56.609 Unspecified intestinal obstruction, unspecified as to partial versus complete obstruction (principal); I47.10 Supraventricular tachycardia, unspecified; E13.10 Other specified diabetes mellitus with ketoacidosis without coma; I10 Essential (primary) hypertension; K21.9 Gastro-esophageal reflux disease without esophagitis; G47.33 Obstructive sleep apnea (adult) (pediatric); M47.816 Spondylosis without myelopathy or radiculopathy, lumbar region; G47.00 Insomnia, unspecified; M76.31 Iliotibial band syndrome, right leg; E78.5 Hyperlipidemia, unspecified; Z96.641 Presence of right artificial hip joint; E83.42 Hypomagnesemia; R10.10 Upper abdominal pain, unspecified
CPT/HCPCS: 36410; 00123; 36415; 71045; 71275; 74177; 80048; 80053; 83690; 85027; 87040; 87637; 93005; 96365; 96375; 99285; J1650; 74018; 74022; 76705; 81003; 81015; 83605; 83735; 84443; 84484; 85025; 86140; 93010; 99222; 99233; 99239; J0131; J0153; J1170; J1815; J1836; J1956; J2270; J2405; J2470; J3475; J3490

== ENCOUNTER 2024-06-17 12:13 | Outpatient (CLI) | payer OTHER, SELFPAY ==
--- NOTE | 2024-04-23 16:15 | CHAPLAIN ---
I visited with Chandrika this morning. She is still not feeling well. She expected her family to be in to visit later. She's anxious to know what's going with and why she doesn't feel well. I offered a prayer with her. She has plans to vacation with her daughter in [place] toward the end of May and said at least this isn't all happening when she's trying to leave on vacation. I will continue to visit.
[2024-06-17] VITALS (14 sets, daily range): BP systolic 102–156; BP diastolic 67–88; PULSE 46–90; RESP 11–20; TEMP 36.7; O2SAT 93–97
[2024-06-17] MEDS: Normal Saline Flush 10 ML SYR IVP ×3 (12:53→13:26)
[2024-06-17] MEDS: Midazolam 2 MG/2 ML VIAL IVP (13:04)
[2024-06-17] MEDS: fentaNYL 100 MCG/2 ML VIAL IVP ×2 (13:04→13:26)
--- NOTE | 2024-06-17 13:43 | PDOC.PAIN ---
Date of service: 06/17/24 Time of Service: 13:43 Pain Managment Procedure Note Procedure Note Procedure Note: PROCEDURE NOTE BILATERAL LUMBAR RADIOFREQUENCY ABLATION Date of Service: June 17, 2024 Patient:? Chandrika Casanova? Provider:? Gary Bell DO, MPH Chandrika Casanova [facility] Bilateral Lumbar Radiofrequency Ablation with the Avanos Machine.? Pre Operative Diagnosis: Lumbosacral Spondylosis without Myelopathy ICD-10 M47.816 Post Operative Diagnosis: Same Pre procedure pain; VAS= 7/10 Comments: She did very well with the LMBBs PROCEDURE: Radiofrequency Ablation of medial branches - bilateral L3, L4, L5 and lateral branches of bilateral S1. Chandrika?was interviewed and the medical record was reviewed.? There were no medical, pharmacologic, radiographic or other structural contraindications to attempting fluoroscopically guided BILATERAL Lumbar Radiofrequency Ablation.?Risks and expected side effects as well as potential benefit of the procedure were reviewed with Chandrika, and the patient's voiced concerns were addressed.? The printed consent form was signed.? Standard time-out procedure was performed. Chandrika was brought into the fluoroscopy suite and positioned into the prone position on the fluoroscopy table and allowed to adjust to a position of comfort. A grounding pad was placed on the left abdomen. The sterile field was prepared using chlorhexidine preparation of the skin and sterile draping. Local anesthesia superficial and deep was provided by local infiltration of 2% lidocaine. A 17g 100 mm radiofrequency introducer needle was placed to the planned anatomic targets guided with intermittent fluoroscopy with a perpendicular approach to terminally place at the junction of the superior articular process and the transverse process of the bilateral L4, L5, the base of the sacral ala on the bilateral for the L5 medial branch nerve and the area between base of the sacral ala to the S1 foramen bilaterally. The stylets were removed and radiofrequency probes with a 4mm active tip were then inserted. Needle tip position of the probes was verified in the AP, oblique, and lateral views. At each site, the medial branch nerve was stimulated at 2 Hz to a maximum 1-2 volts determined to finalize safe needle and electrode placement. The patient was awake and responsive during this portion of the procedure. Each target was anesthetized with 1-2 mL of 2 % Lidocaine for anesthesia for lesioning and then each target was lesioned at 80 degrees Celsius for 2 minutes and 30 seconds. Tissue impedances were noted to be between 250 and 500 Ohms. next I injected 1/4 cc of Depomedrol (40 mg/cc) followed by 1 cc of 0.5% Bupivacaine at each segmental sensory nerve. There was no unusual discomfort expressed by Chandrika. The needles were withdrawn without difficulty and bandages placed over the needle placement sites, the patient was observed and was without hemodynamic, neurologic, or allergic reactions. Fluoroscopic images were digitally archived. POST PROCEDURE EVALUATION: IMPRESSION: 1. Summary of procedure. Medication given is documented in the MAR. 2. Follow up plan: Chandrika to contact [facility] as needed.?This procedure may be repeated if the patient achieves at least 50% improvement in pain/function for at least 6 months. 3. Estimated Blood Loss: <5 mls 4. Fluoroscopy time: Documented in the EMR. Follow up plans and appointments were discussed with the Chandrika. Post procedure instruction was given as documented in nursing documentation and having met discharge criteria, Chandrika was discharged from the [facility]. COMMENTS: No apparent complications. Post-procedure pain: VAS= 0/10. I personally completed the entire procedure. GARY BELL DO, MPH ABPM[employer]R - Subspecialty board certification in Pain Medicine [facility]
[2024-06-17] MEDS: Nerve Block Tray 1 EACH MC (13:46)
[2024-06-17] MEDS: Bupivacaine 0.5% Pres-Free 10 ML VIAL IJ (13:54)
[2024-06-17] MEDS: Lidocaine 2% Pres-Free 5 ML VIAL IJ (13:55)
[2024-06-17] MEDS: methylPREDNISolone ACETATE 40 MG/ML VIAL IJ (13:56)
--- NOTE | 2024-06-17 18:00 | DI.RAD_ITS ---
Exam(s) XR PAIN CLINIC LUMBAR SP 2V EXAM: XR PAIN CLINIC LUMBAR SP 2V CLINICAL HISTORY: DX: Lumbar Spondylosis. TECHNIQUE: Fluoroscopy was provided for the referring physician for guidance with performing pain cl inic injection procedure. COMPARISON: No exams were available for comparison FINDINGS: Please see procedure note for details. Fluoro time: 49.7 seconds RADIATION DOSE DELIVERED: helen Lisa=13.11 mGy
== END 2024-06-17 12:14 | disposition home or self-care (01) ==
LOC: PC 12:13
PROVIDERS: PCP Family Medicine; Visit Provider Preventive Medicine Occupational Medicine
DX: M47.816 Spondylosis without myelopathy or radiculopathy, lumbar region (principal)
CPT/HCPCS: 64635; 64636; 72100; J0665; J1010; J2250; J3010

== ENCOUNTER 2024-07-17 08:20 | Outpatient (REF) | payer OTHER, SELFPAY ==
--- OUTSIDE RECORDS SUMMARY | 2024-07-17 08:22 | XMS_ITS | Encounter Summary ---
Author Organization [facility] Address [address] [place] [address] Care Team Providers Care Youth Services Specialist Name Role Phone Genie Abdullahi MD Primary Care Provider [phone] Encounter Details Date Type Department Care Team (Late st Contact Info) Description 08/04/2020 Lab Requisition [facility] Pathology & Laboratory Medicine - [address] [address] Outr Resulting Lab, Provider Social History Tobacco Use Types Packs/Day Years Used Date Smoking Tobacco: Never Assessed Comments Unknown Sex and Gender Information Value Date Recorded Sex Assigned at Not on file Legal Sex Female 18:19 EST Gender Identity Not on file Sexual Orientation Not on file documented as of this encounter Plan of Treatment Not on file documented as of this encounter Procedures Procedure Name Priority Date/Time Associated Diagnosis Comments ZZCOVID-19 TEST [facility] PCR Today 08/04/2020 10:58 EST COVID-19 TESTING Routine 08/04/2020 10:5 8 EST documented in this encounter Results * COVID-19 TEST [facility] PCR (08/04/2020 10:58 EST) Swab ENTIRE NASOPHARYNX / Unknown 08/04/2020 10:58 EST 08/05/2020 10:08 EST us Provider Outr Resulting Lab MICROBIOLOGY - GENER AL ORDERABLES Final Result [facility] [address] [place] [address] * COVID-19 TESTING (08/04/2020 10:58 EST) COVID-19 rt-PCR Result Negative Negative 08/06/2020 15:50 EST [facility] Comment: Negative results do not preclude 2019-nCoV infection and should not be used as the sole basis for treatment or other patient management decisions. Negative results must be combined with clinical observations, patient history, and epidemiological information. This test was developed and its performance characteristics determined by [facility]. It has not been cleared or approved by the US Food and Drug Administration. FDA does not require this test to go through premarket FDA review. This test is used for clinical purposes. It should not be regarded as investigational or for research. This laboratory is certified under the Clinical Laboratory Improvement Amendments (CLIA) as qualified to perform high complexity clinical laboratory testing. This test is based on the CDC COVID-19 Emergency Use Authorization (EUA) assay, with minor modification as defined by the FDA Performed on the [employer] 7 Flex. Performing Lab [employer] [facility] 08/06/2020 15:50 EST [facility] Swab 08/04/2020 10:5 8 EST 08/05/2020 10:08 EST us Provider Outr Resulting Lab MICROBIOLOGY - GENER AL ORDERABLES Final Result [facility] [address] [place] [address] documented in this encounter Visit Diagnoses Not on filedocumented in this encounter Care Teams Youth Services Specialist Relationship Specialty Start Date End Date Genie Abdullahi MD [address] [place] [id number] PCP - General 06/23/10 documented as of this encounter
--- OUTSIDE RECORDS SUMMARY | 2024-07-17 08:22 | XMS_ITS | Encounter Summary ---
Author Organization [facility] Address [address] [place] [address] Care Team Providers Care Human Resources Analyst Name Role Phone Unavailable Primary Care Provider Unavailabl e Encounter Details Date Type Department Care Team (Late st Contact Info) Description 11/08/2005 9:12 EDT Hospital Encounter [facility] [address] [place] [address] Ramesh Almanza MD Social History Tobacco Use Types Packs/Day Years Used Date Smoking Tobacco: Never Assessed Comments Unknown Sex and Gender Information Value Date Recorded Sex Assigned at Not on file Legal Sex Female 18:19 EST Gender Identity Not on file Sexual Orientation Not on file documented as of this encounter Plan of Treatment Not on file documented as of this encounter Visit Diagnoses Not on filedocumented in this encounter
--- OUTSIDE RECORDS SUMMARY | 2024-07-17 08:22 | XMS_ITS | Continuity of Care Document ---
Author Organization [place] - [facility] [place] [address] Assessment Encounter Date Assessment Date Assessment LastModified by Organization Details LastModified Time 05/13/2024 05/13/2024 The total time devoted to today's encounter, including both the uuev-ue-otwn time with the patient and/or family/caregi constantine and qeo-kyde-ye-f irene time I personally spent is 24 minutes. Not available 05/13/2024 14:38:43 Plan of Treatment Reminders Order Date Submit Date Provider Last Modified By Organization Details Last Modified Time Details Appointments Follow Up 20 2023 08:00A M Genie Abdullahi Not available Not available Not available Lab None recorded . Referral None recorded . Procedures None recorded . Surgeries None recorded . Imaging None recorded . Medication Orders None recorded . Patient TargetsNo targets recorded. Patient InstructionsNo instructions recorded. Reason for Referral None Reported. Results Created Date Observation Date Name Description Value Unit Range Abnormal Flag Note LastModifiedBy Organization Detail LastModifiedTime 04/20/2004/01/2020 MAMMO remig No observ ation record ed. Not Available 04/20 00:10:34 04/20/20 24 01/11/2023 MAMMO scree jayashree No observ ation record ed. Not Available 04/20 00:10:36 04/20/20 24 12/28/2021 MAMMO , inese jayashree No observ ation record ed. Not Available 04/20 00:10:39 04/20/20 24 10/10/2018 remi MENDEZ No observ ation record ed. Not Available 04/20 00:10:41 04/20/20 24 12/21/2020 remi MENDEZ No observ ation record ed. Not Available 04/20 00:10:42 04/20/20 24 12/22/2019 remi MENDEZ No observ ation record ed. Not Available 04/20 00:10:43 04/20/20 24 07/26/2020 imagi ng/di agnos tic resul t No observ ation record ed. Not Available 04/20 00:12:13 04/20/20 24 05/08/2023 imagi ng/di agnos tic resul t No observ ation record ed. Not Available 04/20 00:12:14 04/20/20 24 11/07/2020 imagi ng/di agnos tic resul t No observ ation record ed. Not Available 04/20 00:12:16 04/20/20 24 06/22/2019 imagi ng/di agnos tic resul t No observ ation record ed. Not Available 04/20 00:12:17 04/20/20 24 03/09/2021 US, breas t No observ ation record ed. Not Available 04/20 00:12:18 04/20/20 24 03/09/2021 US, breas t No observ ation record ed. Not Available 04/20 00:12:19 04/20/20 24 05/24/2020 imagi ng/di agnos tic resul t No observ ation record ed. Not Available 04/20 00:12:21 04/20/20 24 06/22/2019 imagi ng/di agnos tic resul t No observ ation record ed. Not Available 04/20 00:12:22 04/20/20 24 06/22/2019 imagi ng/di agnos tic resul t No observ ation record ed. Not Available 04/20 00:12:23 04/20/20 24 07/18/2022 XR, lumba r spine No observ ation record ed. Not Available 04/20 00:12:24 04/20/20 24 08/18/2021 NM, bone scan No observ ation record ed. Not Available 04/20 00:12:26 04/20/20 24 11/08/2022 imagi ng/di agnos tic resul t No observ ation record ed. Not Available 04/20 00:12:27 04/20/20 24 06/22/2019 imagi ng/di agnos tic resul t No observ ation record ed. Not Available 04/20 00:12:28 04/20/20 24 02/16/2020 fluor oscop y guide d joint injec tion (PROC ) No observ ation record ed. Not Available 04/20 00:12:29 04/20/20 24 11/05/2022 imagi ng/di agnos tic resul t No observ ation record ed. Not Available 04/20 00:12:30 04/20/20 24 02/22/2023 imagi ng/di agnos tic resul t No observ ation record ed. Not Available 04/20 00:12:31 04/20/20 24 08/29/2020 imagi ng/di agnos tic resul t No observ ation record ed. Not Available 04/20 00:12:32 04/20/20 24 08/29/2020 imagi ng/di agnos tic resul t No observ ation record ed. Not Available 04/20 00:12:33 04/20/20 24 03/21/2022 imagi ng/di agnos tic resul t No observ ation record ed. Not Available 04/20 00:12:35 04/20/20 24 07/20/2021 XR, hip No observ ation record ed. Not Available 04/20 00:12:36 04/20/20 24 05/21/2023 imagi ng/di juanito tic resul t No observ ation record ed. Not Available 04/20 00:14:53 04/21/20 24 04/21/2024 CT imagi ng repor t Patien t Name: Chandrika Casanova Unit #: [id number] Loc: ER Orderi ng Provid er: Markus Arriaga M.D. Accoun t #: [id number] Status : REG ER Primar y Care Provid er: Genie Abdullahi M.D. Date of Exam: Sex: F : 1965 Age: 58 Exam(s ) a CT:CT chest PE abd pelvis w Exam(s ) CT CHEST PE ABD PELVIS W EXAM: CT CHEST PE ABD PELVIS W CLINIC AL HISTOR Y: SOB on exerti on, LLQ abd pain. TECHNI QUE: Imagin g Protoc ol: Axial CT angiog negra was perfor med with multi- slice acquis ition and multi- planar and/or 3D recons tructi ons. CONTRA ST MATERI AL: Intrav enous: Omnipa que [address] volume :100 ml Oral: None COMPAR DANYELL: No exams were availa ble for compar danyell FINDIN GS: CHEST: PULMON NAYE ARTERI ES: There are no intra- arteri al fillin g defect s to sugges t the presen ce of acute pulmon naye emboli . LUNGS: There is no eviden ce of pulmon naye infarc tion.N o pleura l effusi ons. Relati vely symmet rical increa sed markin gs in both lungs consis tent with air trappi ng. There is a small 2-3 millim eter nodule in the left upper lobe. MEDIAS TINUM: There is no hilar nor medias tinal adenop athy. Visual ized thyroi d unrema rkable . CARDIA C: Heart size is normal . There is no perica rdial effusi on. There is no signif icant shift of the interv entric ular septum .Thora cic aorta appear s unrema rkable . Normal size. No dissec tion OSSEOU S: No signif icant osseou s lesion s.No fractu res.. ABDOME N: There is no ascite s. No eviden ce of bowel obstru ction, free air, nor absces s. LIVER: There are no focal hepati c lesion s nor dilata tion of intrah epatic ducts. GALLBL ADDER/ BILIAR Y: No obviou s gallbl adder pathol ogy. CBD is not dilate d. PANCRE : No eviden ce of pancre atic mass nor dilata tion of the pancre atic duct. SPLEEN : Spleen is not enlarg ed. There are no intras plenic lesion s. Spleni c and portal veins are patent . ADRENA LS: There are no signif icant adrena l masses . KIDNEY S:Righ t kidney unrema rkable . There is a benign cysts in left kidney latera l cortex measur ing 2.8 x 2.4 cm. This is a benign cyst and does not requir e furthe r workup . Smalle r sub cm size cyst is noted lower down anteri or cortex of the left kidney . There is also a small nonobs tructi ve 3 millim eter calcul us in left kidney eviden t. No hydron ephros is. Ureter s are not dilate d. Bladde r and lower pelvis partia lly obscur ed by beam harden ing artifa ct from right hip prosth esis. No solid renal masses .. ABDOMI NAL AORTA: Abdomi nal aorta is not enlarg ed. LYMPH NODES: There is no retrop eriton eal or para-a ortic adenop athy. ABDOMI NAL WALL: Subcut aneous streak ing and skin thicke jayashree noted symmet ricall y over the anteri or wall of the abdome n both sides probab ly inject ion sites versus symmet rical cellul itis. There are no draina ble subcut aneous fluid collec tions. No gas in the subcut aneous tissue s eviden t GI: Fluid- filled small bowel loops noted in left side of the abdome n which exhibi t diamet er 2.5 cm, upper normal . Transi tion point appear s to be in the mid abdome n level. Distal small bowel loops appear unrema rkable . PELVIS : LYMPH NODES: There is no intrap elvic nor inguin al adenop athy. GI: No eviden ce of append icitis .No eviden ce of sigmoi d divert iculit is. URINAR Y BLADDE R: Not disten ded but obscur ed by beam harden ing artifa ct from right hip prosth esis. REPROD UCTIVE : Uterus size age-ap propri ate. There are dilate d veins around the uterus which drain into slight ly promin ent left gonada l vein which itself drains into the left renal vein which itself is not occlud ed. There is a pessar y in the upper vagina . There are no abnorm al adnexa l masses . No free fluid in the pelvis . OSSEOU S: No signif icant osseou s lesion s. No fractu res. Right hip prosth esis noted. IMPRES BOAZ: 1. No eviden ce of acute pulmon naye emboli nor pulmon naye infarc tion. 2. There are relati vely symmet rical increa sed markin gs in both lower lobes which may just repres ent air trappi ng. There are no associ ated pleura l effusi ons. No intrat horaci c adenop athy eviden t. No bronch iectas is. 3. There are slight ly dilate d fluid- filled small bowel loops in the centra l-left side of the abdome n with normal diamet er more distal small bowel loops. Either ileus versus develo ping small bowel obstru ction. The large bowel- colon is partia lly collap sed. Correl ation with clinic al recomm ended. The stomac h and duoden um are not disten ded 4. Pelvic conges tion syndro me incide ntally noted. 5. Pessar y noted in the upper vagina . Called by myself to ER physic shawn on 2023 at 1:25 p.m. RADIAT ION DOSE DELIVE RED: 372.33 mGy.cm Total DLP DATA REPOSI TORY: All CT scans at this facili ty are submit heather to the Nation al Radiol ogy Data Regist ry (NRDR) Dose Index Regist ry (DIR) with the [place] of Radiol ogy (ACR). RADIAT ION OPTIMI ZATION : All CT scans at this facili ty use at least one of these dose optimi zation techni ques: automa heather exposu re contro l; mA and/or kV adjust ment per patien t size (inclu adrian target ed exams where dose is matche d to clinic al indica tion); or iterat arabella recons tructi on. 014: Total DLP = 0.00 mGy-cm Ordere d By: Markus Arriaga M.D. CC: ------ ------ ------ ------ ------ ------ ------ ------ ------ ------ ------ ------ ---- Dictat ed By: Hernan Medrano M.D. 1330 1330 Transc ribed By: Mitchell NOBLE,Nakia jose 1329 This is privil eged, confid ential inform ation intend ed only for the provid er named. Any use or distri bution by any person other than this provid er is strict ly prohib ited. If you receiv e this report in error, please notify us immedi samly at and return the origin al report to us at the addres s above. Thank- you. INTERFACE [facility] [address], [place], [address] 04/21/2024 13:34:43 04/21/20 24 04/21/2024 x-ray imagi ng repor t Patien t Name: Chandrika Casanova Unit #: [id number] Loc: ER Orderi ng Provid er: Markus Arriaga M.D. Accoun t #: [id number] Status : REG ER Primar y Care Provid er: Genie Abdullahi M.D. Date of Exam: Sex: F Admiss ion Date: : 1965 Age: 58 Exam(s ) XR PORTAB LE CHEST AP POST LINE EXAM: XR PORTAB LE CHEST AP POST LINE CLINIC AL HISTOR Y: NG placem ent TECHNI QUE: 2D digita l imagin g was perfor med. COMPAR DANYELL: CT CT CHEST PE ABD PELVIS W from 2023 FINDIN GS: A nasoga stric tube has been insert ed with tip in the fundus of the stomac h. The side hole may be in the distal esopha rupa appear s LUNGS: Apical scarri ng. No focal infilt rate or pulmon naey edema. No pleura l abnorm ality seen. HEART: Normal size. AORTA: Normal diamet er. BONES: Unrema rkable for age. Soft tissue s: Unrema rkable . IMPRES BOAZ: An endotr acheal tube tip projec ts in the fundus of the stomac h. DATA REPOSI TORY: RADIAT ION DOSE DELIVE RED: Ordere d By: Markus Arriaga M.D. CC: ------ ------ ------ ------ ------ ------ ------ ------ ------ ------ ------ ------ - Dictat ed By: Carter Swift 1456 145 Transc ribed By: Candice Clemons 1456 This is privil eged, confid ential inform ation intend ed only for the provid er named. Any use or distri bution by any person other than this provid er is strict ly prohib ited. If you receiv e this report in error, please notify us immedi zena at and return the origin al report to us at the addres s above. Thank- you. INTERFACE [address] , [place], [address] 04/21/2024 15:01:44 04/21/20 24 04/21/2024 x-ray imagi susi kirkpatrick t Patimansi t Name: Chandrika Casanova Unit #: [id number] Loc: MS Orderi ng Provid er: Markus Arriaga M.D. Accoun t #: [id number] Status : [facility] er: Genie Abdullahi M.D. Date of Exam: Sex: F Admiss ion Date: : 1965 Age: 58 Exam(s ) XR ABDOME N FLAT PLATE EXAM: XR ABDOME N FLAT PLATE CLINIC AL HISTOR Y: Bowel obstru ction, eval post-g astrog raffin . TECHNI QUE: 2D digita l imagin g was perfor med. COMPAR DANYELL: CR XR ABDOME N FLAT PLATE from [address] CHEST PE ABD PELVIS W from 2023 FINDIN GS: AP supine view of the abdome n-pelv is perfor med follow ing instil lation of Gastro grafin into the stomac h lumen via the indwel ling NG tube. The stomac h is not disten ded. Duoden um is not disten ded. There are left-s ided jejuna l loops which exhibi t upper normal diamet ers. The opacif ied more distal small bowel loops are not dilate d. The contra st has not yet reache d the colon. There is contra st seen in the urinar y bladde r. This is from prior contra st infuse d CT scan perfor med earlie r today. Right hip prosth esis incide ntally noted. IMPRES BOAZ: Upper normal diamet er jejuna l loops in left side of the abdome n. No obviou s bowel obstru ction. Recomm end follow -up images until the contra st reache s the colon. DATA REPOSI TORY: RADIAT ION DOSE DELIVE RED: Ordere d By: Mrakus Arriaga M.D. CC: ------ ------ ------ ------ ------ ------ ------ ------ ------ ------ ------ ------ - Dictat ed By: Hernan Medrano M.D. 1805 Transc ribed By: Mitchell NOBLE,Nakia jose 1805 This is privil eged, confid ential inform ation intend ed only for the provid er named. Any use or distri bution by any person other than this provid er is strict ly prohib ited. If you receiv e this report in error, please notify us immedi samly at and return the origin al report to us at the addres s above. Thank- you. INTERFACE [facility] [address], [place], [address] 04/21/2024 18:12:08 04/22/20 24 04/22/2024 x-ray imagi ng repor t Sanchez t Name: Chandrika Casanova Unit #: [id number] Loc: MS Latrice goldman Provid er: Anthony Harper DO Accoun t #: [id number] Status : ADM IN [facility] er: Genie Abdullahi M.D. Date of Exam: Sex: F Admiss ion Date: : 1965 Age: 58 Exam(s ) XR ABDOME N FLAT PLATE EXAM: XR ABDOME N FLAT PLATE CLINIC AL HISTOR Y: sbo. TECHNI QUE: 2D digita l imagin g was perfor med. COMPAR DANYELL: CR XR ABDOME N FLAT PLATE from 2023 FINDIN GS: Single AP supine view the abdome n pelvis : Ng-tub e is again noted this stomac h in the stomac h is not disten ded. All of the Gastro grafin has progre ssed to the level: . Colon is not disten ded. There are no dilate d small bowel loops on today' s image IMPRES BOAZ: As above. No eviden ce of small- bowel obstru ction. DATA REPOSI TORY: RADIAT ION DOSE DELIVE RED: Latisha parkinson By: Anthony Harper DO CC: ------ ------ ------ ------ ------ ------ ------ ------ ------ ------ ------ ------ - Dictat ed By: Hernan Medrano M.D. 942 Transc ribed By: Mitchell NOBLE,Nakia jose 942 This is privil eged, confid ential inform ation intend ed only for the provid er named. Any use or distri bution by any person other than this provid er is strict ly prohib ited. If you receiv e this report in error, please notify us immedjenny freitas at and return the origin al report to us at the addres s above. Thank- you. INTERFACE [facility] [id number], [place], [address] 04/22/2024 09:58:23 04/22/20 24 04/22/2024 CT, chest , w/ contr ast Patien t Name: Chandrika Casanova Unit #: [id number] Loc: MS Latrice goldman Provid er: Darnell Barboza t #: [id number] Status : ADM IN Primar y Care Provid er: Genie Abdullahi M.D. Date of Exam: Sex: F : 1965 Age: 58 Exam(s ) a CT:CT chest PE CTA Exam(s ) CT CHEST PE CTA EXAM: CT CHEST PE CTA CLINIC AL HISTOR Y: acute chest pain/t achyca rdia, new SVT. TECHNI QUE: Imagin g Protoc ol: CT angiog negra of the chest was perfor med using pulmon naye embolu s protoc ol. Multi planar recons tructi ons were perfor med. CONTRA ST MATERI AL: Intrav enous: Omnipa que [address] volume : 100 cc COMPAR DANYELL: CT CT CHEST PE ABD PELVIS W from 2023 CR XR ABDOME N FLAT PLATE from 2023 FINDIN GS: CHEST: PULMON NAYE ARTERI ES: There are no intral uminal fillin g defect s to sugges t acute pulmon naye emboli . LUNGS: There is some increa sing tree in bud infilt rate in the left upper lobe, not associ ated with pleura l effusi ons nor adenop athy. No findin gs in the trache a and mainst em bronch i.. Mild increa sed markin gs noted in in both lung bases but withou t air bronch ograms . There is no bronch iectas is. MEDIAS TINUM: There is no hilar nor medias tinal adenop athy. No subcar inal adenop athy. There is an NG tube in the esopha rupa with distal tip in the stomac h. CARDIA C: Heart size is upper normal . There is no perica rdial effusi on.Antony iber of the thorac ic aorta is within normal limits . No eviden ce of aortic dissec tion. There is no signif icant shift of the interv entric ular septum . No contra st reflux into the intrah epatic IVC. PARTIA LLY VISUAL IZED UPPERM OST ABDOME N: No obviou s findin gs OSSEOU S: No signif icant osseou s lesion s.. IMPRES BOAZ: 1. No eviden ce of acute pulmon naye emboli . No eviden ce of pulmon naye infarc tion.N o eviden ce of aortic dissec tion nor perica rdial effusi on. Normal heart size. 2. Mild left upper lobe infilt rate which exhibi ts tree-i n-bud appear ance. No associ ated adenop athy nor pleura l effusi on. RADIAT ION DOSE DELIVE RED: 85.53m Gy.cm Total DLP DATA REPOSI TORY: All CT scans at this facili ty are submit heather to the [facility] al Radiol ogy Data Regist ry (NRDR) Dose Index Regist ry (DIR) with the [place] of Radiol ogy (ACR). RADIAT ION OPTIMI ZATION : All CT scans at this facili ty use at least one of these dose optimi zation techni ques: automa heather exposu re contro l; mA and/or kV adjust ment per patien t size (inclu adrian target ed exams where dose is matche d to clinic al indica tion); or iterat arabella recons tructi on. 013: Total DLP = 0.00 mGy-cm Ordere d By: Darnell Barboza CC: ------ ------ ------ ------ ------ ------ ------ ------ ------ ------ ------ ------ ---- Dictat ed By: Hernan Medrano M.D. 1222 1222 Transc ribed By: Mitchell NOBLE,Nakia jose 1222 This is privil eged, confid ential inform ation intend ed only for the provid er named. Any use or distri bution by any person other than this provid er is strict ly prohib ited. If you receiv e this report in error, please notify us immedi zena at and return the origin al report to us at the addres s above. Thank- you. [facility] [address], [place], [address] 05/13/2024 14:15:46 04/23/20 24 04/23/2024 ultra sound imagi ng repor t Patimansi t Name: Chandrika Casanova Unit #: [id number] Loc: MS Latrice goldman Provid er: Tylor Kim Accgwen t #: [id number] Status : ADM IN Primar y Care Provid er: Genie Abdullahi M.D. Date of Exam: Sex: F Admiss ion Date: : 1965 Age: 58 Exam(s ) US ABDOME N LIMITE D EXAM: US ABDOME N LIMITE D CLINIC AL HISTOR Y: RUQ abdomi nal pain with colic with N/V TECHNI QUE: Ultras ound abdome n perfor med using standa rd protoc ol. COMPAR DANYELL: US US PELVIS TRANSV AGINAL from 2022 FINDIN GS: There is no ascite s eviden t. LIVER: There are no hepati c lesion s eviden t nor dilata tion of intrah epatic ducts. GALLBL ADDER/ BILIAR Y: There are no gallst ones. No gallbl adder wall edema nor perich olecys tic fluid. The common hepati c duct isnot dilate d, measur ing 5mm at the level of sharon hepati s. PANCRE : There is no eviden ce of pancre atic mass nor dilata tion of the pancre atic duct. RIGHT KIDNEY :No eviden ce of solid mass, calcul us, nor hydron ephros is. No cortic al cysts eviden t. IMPRES BOAZ: 1. No eviden ce of cholel ithias is nor dilata tion of the biliar y tree. 2. No other signif icant ultras ound findin gs in the right upper quadra nt. 3. There is no ascite s. DATA REPOSI TORY: Latisha parkinson By: Tylor Kim CC: ------ ------ ------ ------ ------ ------ ------ ------ ------ ------ ------ ------ - Dictat ed By: Hernan Medrano M.D. 43 942 Transc ribed By: Mitchell NOBLE,Nakia jose 942 This is privil eged, confid ential inform ation intend ed only for the provid er named. Any use or distri bution by any person other than this provid er is strict ly prohib ited. If you receiv e this report in error, please notify us immedi samly at and return the origin al report to us at the addres s above. Thank- you. INTERFACE [facility] [address], [place], [address] 04/23/2024 16:52:46 04/23/20 24 04/23/2024 x-ray imagi ng repor t Patien t Name: Chandrika Casanova Unit #: [id number] Loc: MS Latrice goldman Provid er: Karina Barajas M.D. Accoun t #: [id number] Status : ADM IN Primar y Care Provid er: Genie Abdullahi M.D. Date of Exam: Sex: F Admiss ion Date: : 1965 Age: 58 Exam(s ) XR ABD FLAT UPRIGH T PA CHEST EXAM: XR ABD FLAT UPRIGH T PA CHEST CLINIC AL HISTOR Y: abd pain. TECHNI QUE: 2D digita l imagin g was perfor med. COMPAR DANYELL: CT CT CHEST PE ABD PELVIS W from 2023 CR XR ABDOME N FLAT PLATE from 2023 FINDIN GS: 3 views: Fronta l PA view of the chest and supine and uprigh t views of the abdome n. Heart size normal . Lungs are clear. Stomac h is not disten ded There is no eviden ce of obviou s bowel obstru ction. Is a small amount of remain ing enteri c contra st which is all within the nondil ated colon and rectum . On the uprigh t images there is air lucenc y associ ated with the unders urface of the right hemidi aphrag m. This may indica te free intrap eriton eal air. There is a possib ly that this is artifa ctual. There appear s to be a vagina l pessar y in place. There is also a right hip prosth esis. IMPRES BOAZ: No bowel obstru ction Subtle suspic ion for free intrap eriton eal air subjac ent to the right hemidi aphrag m versus possib le artifa ct. If clinic ally indica heather (requi sition states increa sing abdomi nal pain) I would recomm end CT scan of the abdome n-pelv is DATA REPOSI TORY: RADIAT ION DOSE DELIVE RED: Ordere d By: Karina Barajas M.D. CC: ------ ------ ------ ------ ------ ------ ------ ------ ------ ------ ------ ------ - Dictat ed By: Hernan Medrano M.D. 1130 113 Transc ribed By: Nakia Medrano MD 1130 This is privil eged, confid ential inform ation intend ed only for the provid er named. Any use or distri bution by any person other than this provid er is strict ly prohib ited. If you receiv e this report in error, please notify us immedi zena at and return the origin al report to us at the addres s above. Thank- you. INTERFACE [facility] [address], [place], [address] 04/23/2024 16:52:58 04/23/20 24 04/23/2024 CT, abdom en + pelvi s, w/ contr ast Patien t Name: Chandrika Casanova Unit #: [id number] Loc: Orderjenny ng Provid er: Kairna Barajas M.D. Accoun t #: [id number] Status : ADM IN Primar y Care Provid er: Genie Abdullahi M.D. Date of Exam: Sex: F : 1965 Age: 58 Exam(s ) a CT:CT abdome n pelvis w Exam(s ) CT ABDOME N PELVIS W EXAM: CT ABDOME N PELVIS W CLINIC AL HISTOR Y: rising WBG and lactic acid, tachyc ardia. TECHNI QUE: Imagin g Protoc ol: Axial comput ed tomogr aphy images with malhotra l and sagitt al reform atted images were create d and review ed CONTRA ST MATERI AL: Intrav enous: Omnipa que-35 0 100cc Oral: None COMPAR DANYELL: No exams were availa ble for compar danyell FINDIN GS: VISUAL IZED LUNG BASES: No nodule s nor pleura l effusi ons eviden t. ABDOME N: There is no ascite s. LIVER: Liver is hypode nse implyi ng steato sis. There no discre te focal hepati c lesion s identi fied. No dilate d intrah epatic ducts. Intrah epatic portal veins and intrah epatic system ic veins are pat ent. GALLBL ADDER/ BILIAR Y: Contai ns hyperd ense materi al most probab ly excret ion of IV contra st from CT scan 2 day prior. CBD is not dilate d. PANCRE : No eviden ce of pancre atic mass nor dilata tion of the pancre atic duct. SPLEEN : Spleen is not enlarg ed. No obviou s intras plenic lesion s. Spleni c and portal veins are patent . ADRENA LS: There are no signif icant adrena l masses . KIDNEY S:Ran gn cyst left kidney again noted. Does not requir e furthe r workup . No solid renal masses . Sys small nonobs tructi ve calcul us in left kidney again noted. No hydron ephros is nor hydrou reter. No obviou s findin gs in the urinar y bladde r. ABDOMI NAL AORTA: Abdomi nal aorta is not enlarg ed. LYMPH NODES: There is no retrop eriton eal nor paraao rtic adenop athy. ABDOMI NAL WALL: No eviden ce of signif icant anteri or abdomi nal wall nor inguin al hernia . GI: There is presen tly no eviden ce of bowel obstru ction, free air, nor absces s. Previo usly dilate d jejuna l loops appear unrema rkable on the presen t study. No free air. PELVIS : GI: No eviden ce of append icitis .No eviden ce of sigmoi d divert iculit is. LYMPH NODES: There is no intrap elvic nor inguin al adenop athy. REPROD UCTIVE : Pessar y again noted in upper vagina . Uterus and adnexa l region s unrema rkable althou gh some dilate d periut erine veins are again noted. URINAR Y BLADDE R: Partia lly obscur ed by beam harden ing artifa ct right hip prosth esis. Otherw ise unrema rkable . OSSEOU S: Right hip prosth esis. No fractu res. No signif icant osseou s lesion s. IMPRES BOAZ: 1. Compar ed to the prior CT scan of 2023 the previo usly descri bed dilate d small bowel loops in left side of the abdome n presen tly appear unrema rkable . There is presen tly no eviden ce of small- bowel obstru ction, free air, nor absces s. There is no ascite s. 2. Pessar y again noted in the upper vagina . 3. Right hip prosth esis Images review ed at [facility] MONITO R with on-antony chelo elena follow ing comple tion of the study 2023. RADIAT ION DOSE DELIVE RED: 348.9m Gy.cm Total DLP DATA REPOSI TORY: All CT scans at this facili ty are submit heather to the [facility] al Radiol ogy Data Regist ry (NRDR) Dose Index Regist ry (DIR) with the [facility]ena [facility] of Radiol ogy (ACR). RADIAT ION OPTIMI ZATION : All CT scans at this facili ty use at least one of these dose optimi zation techni ques: automa heather exposu re contro l; mA and/or kV adjust ment per patien t size (inclu adrian target ed exams where dose is matche d to clinic al indica tion); or iterat arabella recons tructi on. 016: Total DLP = 0.00 mGy-cm Ordere d By: Karina Barajas M.D. CC: ------ ------ ------ ------ ------ ------ ------ ------ ------ ------ ------ ------ ---- Dictat ed By: Hernan Medrano M.D. 142 142 Transc ribed By: Mitchell NOBLE,Nakia jose 142 This is privil eged, confid ential inform ation intend ed only for the provid er named. Any use or distri bution by any person other than this provid er is strict ly prohib ited. If you receiv e this report in error, please notify us immedi zena at [phone] and return the origin al report to us at the addres s above. Thank- you. [address] [place], [address] 07/16/2024 13:30:19 1106/17/2024 XR, lumba r spine Patien t Name: Chandrika Casanova Unit #: [id number] Loc: PC Orderi ng Provid er: Micheal Bell DO Accoun t #: [id number] Status : REG CLI Primar y Care Provid er: Genie Abdullahi M.D. Date of Exam: Sex: F Admiss ion Date: : 1965 Age: 58 Exam(s ) XR PAIN CLINIC LUMBAR SP 2V EXAM: XR PAIN CLINIC LUMBAR SP 2V CLINIC AL HISTOR Y: DX: Lumbar Spondy losis. TECHNI QUE: Fluoro scopy was provid ed for the referr ing physic shawn for becca ce with perfor [facility] inject ion proced ure. COMPAR DANYELL: No exams were availa ble for compar danyell FINDIN GS: Please see proced ure note for detail s. Fluoro time: 49.7 second s RADIAT ION DOSE DELIVE RED: Ka,r=1 3.11 mGy Ordere d By: Micheal Bell DO CC: ------ ------ ------ ------ ------ ------ ------ ------ ------ ------ ------ ------ - Dictat ed By: Carter Swift [id number] 153 Transc ribed By: Candice Clemons 153 This is privil eged, confid ential inform ation intend ed only for the provid er named. Any use or distri bution by any person other than this provid er is strict ly prohib ited. If you receiv e this report in error, please notify us immedi ately at [phone] and return the origin al report to us at the addres s above. Thank- you. [address] [place], [address] 07/16/2024 13:22:26 Result Notes None recorded. Problems Name Problem SNOMED Code Status Onset Date Resolution Date Notes Provider Name and Address Organization Details Recorded Time Migraine 37653119 Active [address], [facility] [address] , [facility] 4 19:18:06 Essarcelia l hyperten boaz 13372060 Active [address], [facility] [address] , [facility] 4 19:17:21 Hyperlip idemia 34724873 Active 2006 high-dos e statin MD Vandana JUAREZ Dr, [facility] [address] , [facility] 4 19:17:44 Type 2 diabetes mellitus without complica tion 547246516 Completed 200709/03/[address], [facility] [address] , [facility] 4 19:20:10 Screenin g for cancer Completed 201402/01/2015 Problem Code: Z12.10; Problem Code Type: ICD-10; Not Available [facility] 3 04:53:29 Adult health examinat ion Completed 201407/16/[address], [facility] [address] , [facility] 4 13:31:46 Gastroes ophageal reflux disease without esophagi tis 965701028 Active [address], [facility] [address] , [facility] 4 19:17:33 Low back pain 280318354 Active 2014 status post micro discecto my L5-S1 [address], [facility] [address] , [facility] 4 19:20:53 Cramp in lower limb associat ed with sleep 64969722176 4104 Active [address], [place], [address] , [facility] 4 19:17:13 Snoring 73958862 Completed 201505/02/2016 04/04/20 16 - Comments only - Genie Abdullahi MD - With some awakenin g gasping, and fatigue, suspicio us for sleep apnea, referral to the sleep clinic. Problem Code: R06.83; Problem Code Type: ICD-10; Not Available [facility] 3 04:53:30 Obstruct arabella sleep apnea syndrome 85801279 Active 2015 mild, mouth guard MD Vandana J[address]Z Dr, [place], [address] , [facility] 4 19:21:15 Neutrope magdalena 248606364 Active 2016 chronic, mild- WBC 3.[address], [place], [place], [address] [place] [address] , [facility] 4 19:19:09 Acute sinusiti s 51698499 Completed 201710/10/2017 Problem Code: J01.90; Problem Code Type: ICD-10; Not Available [facility] 3 04:53:30 Diarrhea 70818112 Completed 201804/16/2019 04/02/20 19 - Comments only - Genie Abdullahi MD - if persists , stool tests. Problem Code: R19.7; Problem Code Type: ICD-10; Not Available [facility] 3 04:53:30 Disorder of skin appendag e 344078491 Completed 201804/16/2019 04/02/20 19 - Comments only - Genie Abdullahi MD - right upper thigh, hot pack, reassura nce Problem Code: L73.8; Problem Code Type: ICD-10; Not Available [facility] 3 04:53:30 Acute bronchit is 33544927 Completed 201908/31/2019 08/17/19 20 - Comments only - Genie Abdullahi MD - Treat with doxycycl ine 100 mg twice daily for 7 days. Call if not michaela serrano Problem Code: J20.9; Problem Code Type: ICD-10; Not Available [facility] 3 04:53:30 Acute upper respirat ory infectio n 43722783 Completed 201911/02/2019 10/19/19 20 - Comments only - Genie Abdullahi MD - no fever, minimal cough, no covid 19 risks or exposure . Persiste nt sore throat but no fever, no GERD, no post nasal drip. Observat ion for now. Problem Code: J06.9; Problem Code Type: ICD-10; Not Available [facility] 3 04:53:31 Insomnia 142098856 Active [address], [place], [address] , [facility] 4 19:17:52 Pain in right hip joint 23138085192 9102 Active [address], [place], [address] , [facility] 4 19:18:35 Screenin g for malignan t neoplasm of breast Completed 202009/03/2023 02/03/20 21 - Comments only - Genie Abdullahi MD - recent mammogra m showed dense breasts with recommen dation to do USG, will order. Problem Code: Z12.39; Problem Code Type: ICD-10; MD Vandana J[address] Dr, [place], [address] , [facility] 4 19:18:25 Chronic rhinitis 63925287 Active [address], [place], [address] , [facility] 4 19:17:07 Fatigue 01795383 Completed 202202/04/2023 Problem Code: R53.83; Problem Code Type: ICD-10; Not Available [facility] 3 04:53:31 Fatigue 36636797 Completed 202203/06/2023 02/21/20 23 - Comments only - Genie Abdullahi MD - Reassuri ng labs includin g CBC, TSH-R, CMP. Does have known mild sleep apnea, has not had sleep study with her oral device, will send back to sleep carrier clinic to consider that- could be due to boredome at work and back pain. Problem Code: R53.83; Problem Code Type: ICD-10; Not Available [facility] 3 04:53:31 Palpitat ions 19825927 Completed 202206/10/2023 Problem Code: R00.2; Problem Code Type: ICD-10; Not Available [facility] 4 05:36:13 Otalgia of right ear 5912342295 Active 2022 GENIE ABDULLAHI MD [address] [place] [address] , [place], [address] , [place] [facility] 4 19:18:51 Abdomina l pain 72571077 Completed 202005/01/2023 11/04/19 21 - Comments only - Genie Abdullahi MD - vague symptoms , normal bowel habits, not related to eating or to bowel movement s, not really typical pain for IBS. Will check KUB to assess amount of stool, consider miralax cleanout if signific ant amount of stool Otherwis e could refer to GI, though she is very reluctan t to ever have a repeat colonosc opy... and normal in 2014. Problem Code: R10.9; Problem Code Type: ICD-10; Not Available [facility] 3 04:53:32 Constipa tion 63487007 Completed 202001/19/2022 Problem Code: K59.09; Problem Code Type: ICD-10; Not Available [facility] 3 04:53:33 Pain in right foot 30654564399 9107 Completed 201604/02/2019 Problem Code: M79.671; Problem Code Type: ICD-10; Not Available [facility] 3 04:53:33 Candidia sis of skin 51203054 Completed 201804/02/2019 Problem Code: B37.2; Problem Code Type: ICD-10; Not Available [facility] 3 04:53:33 Left lower quadrant pain 068588234 Completed 201704/01/2020 Problem Code: R10.32; Problem Code Type: ICD-10; Not Available [facility] 3 04:53:34 Hyperten sive disorder 26067017 Completed 200605/01/2023 Not Available [facility] 3 04:53:34 Hand pain 70187792 Completed 201804/01/2020 Problem Code: M79.643; Problem Code Type: ICD-10; Not Available [facility] 3 04:53:34 Thyroid function tests abnormal 455484977 Completed 202202/20/2023 Problem Code: R94.6; Problem Code Type: ICD-10; Not Available [facility] 3 04:53:34 Dyspnea 089471973 Completed 201908/31/2019 Problem Code: R06.02; Problem Code Type: ICD-10; Not Available [facility] 3 04:53:34 Hearing loss 99510166 Completed 201504/04/2016 Problem Code: H91.90; Problem Code Type: ICD-10; Not Available [facility] 3 04:53:35 Abdomina l distensi on, gaseous 994212347 Completed 202008/07/2021 Problem Code: R14.0; Problem Code Type: ICD-10; Not Available [facility] 3 04:53:35 Gastroes ophageal reflux disease 840349486 Completed Not Available [facility] 3 04:53:35 Cough 00942230 Completed 202206/24/2023 06/10/20 23 - Comments only - Genie Abdullahi MD - URI, negative flu and covid, symptoma tic treatmen t. 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 Medical Equipment None Reported. Allergies Allergen ID Allergen Name Allergen Category Reaction Reaction Severity Criticality Documentation Date Start Date Code Code System Note Provider Name and Address Organization Details Recorded Time 91428 Bactrim medicatio n rash mild Not available 06/14/20232005 54319 9 RxNorm RASH Not Available [facility] 3 16:30:06 74266 Keflex medicatio n rash mild Not available 06/14/20232005 84166 7 RxNorm RASH Not Available [facility] 3 16:30:07 12092 prednison e medicatio n other mild Not available 06/14/20232005 8640 RxNorm BLURR ED VISIO N Aller gyRea ction : 'BLUR RED VISIO N'; Not Available [facility] 3 16:30:07 88354 adhesive tape environme nt,medica tion rash moderate Not available 06/14/20232005 Skin Rash Aller gyRea ction : 'Skin Rash' ; Not Available [facility] 3 16:30:08 Medications Name Sig Start Date Stop Date Status Note LastModified by Organization Details LastModified Time celecoxib 200 mg capsule Take 2 capsule by mouth once a day active Not Available Not Available No t Available cyclobenz aprine 10 mg tablet 1TAB qhs 02/09 completed Not Available Not Available Not Available amoxicill in 500 mg capsule TAKE 4 CAPSULE BY MOUTH 1 HOUR BEFORE DENTAL PROCEDUR E 12/15 completed ankle replacem ent, not needed Not Available Not Available Not Available Vitamin B-2 100 mg tablet Two (200 mg) twice a day by mouth for migraine headache preventi on 08/01 completed Not Available Not Available Not Available Estring 2 mg (7.5 mcg/24 hour) vaginal ring insert 1 ring vaginall y every 3 months. active Not Available Not Available No t Available doxycycli ne hyclate 100 mg capsule TAKE ONE CAPSULE BY MOUTH TWICE A DAY FOR 5 DAYS 05/13 completed Not Available Not Available Not Available atorvasta tin 20 mg tablet Take 1 tab by mouth daily at bedtime 04/30 completed Not Available Not Available Not Available Vitamin C 500 mg tablet active Not Available Not Available Not Available fluconazo le 150 mg tablet TAKE ONE TABLET BY MOUTH EVERY 72 HOURS FOR 2 DOSES, MAY REPEAT IF SYMPTOMS PERSIST 09/03 completed Not Available Not Available Not Available Vicodin 5 mg-500 mg tablet 1TAB q6h 09/02 completed Not Available Not Available Not Available Kenalog 0.1 % topical cream anne cream .qid after meals 07/21 completed Not Available Not Available Not Available meloxicam 15 mg tablet 1TAB daily 06/02 completed Not Available Not Available Not Available ibuprofen 200 mg capsule prn 2013 active Not Available Not Available Not Avai lable Medrol (Jb) 4 mg tablets in a dose pack 1 TAB DIRECTED 12/21 completed Not Available Not Available Not Available prednison e 20 mg tablet 2 po daily for 3 days, then 1 daily for 3 days. 02/19 completed Not Available Not Available Not Available Mirapex 0.125 mg tablet 1 TAB at bedtime 08/18 completed Not Available Not Available Not Available Excedrin Migraine 250 mg-250 mg-65 mg tablet Takes once a day as needed 2013 active Not Available Not Available Not Avai lable Amerge 1 mg tablet Take 1 tab by mouth at onset of headache ; may repeat x one in 4 hours if needed 04/02 completed Not Available Not Available Not Available lovastati n 10 mg tablet 1TAB QHS 10/19 completed Not Available Not Available Not Available tramadol 50 mg tablet 1 tab daily Fill at [facility] only 12/25 completed Not Available Not Available Not Available ketorolac 10 mg tablet 1 qid 04/23 completed Not Available Not Available Not Available Vitamin C 1,000 mg tablet 2013 active Not Available Not Available Not Avai lable pravastat in 10 mg tablet Take 1 tab by mouth daily at bedtime 11/30 completed replaces atorvast atin Not Available Not Available Not Available triamcino lone acetonide 0.1 % dental paste Apply a small amount to teeth four times a day Apply a small amount to the lesion 2 to 4 times daily until healed; do not rinse afterwar ds and avoid eating or drinking for 30 minutes after applicat ion 2021 active Called to pharmacy Not Available Not Available Not Available Mirapex 0.25 mg tablet 1-2 tabs at bedtime 08/18 completed Not Available Not Available Not Available Glucotrol XL 10 mg tablet,ex tended release 1 twice daily 02/26 completed Not Available Not Available Not Available benzonata te 100 mg capsule TAKE ONE CAPSULE BY MOUTH THREE TIMES A DAY NEEDED 09/06 completed Not Available Not Available Not Available Tylenol 500 mg tablet Take 1 tab by mouth daily 2013 active Not Available Not Available Not Avai lable Amerge 2.5 mg tablet 1 TAB .prn migraine KIMBLE 11/25 completed Not Available Not Available Not Available indometha jesus 25 mg capsule Take 1 capsule every day by oral route as needed, for migraine . active Not Available Not Available No t Available Magnesium -Oxide 400 mg tablet Take 1 by mouth daily 08/01 completed Not Available Not Available Not Available omeprazol e 20 mg capsule,d elayed release Take 1 capsule by mouth every day 2023 active Not Available Not Available Not Avai lable Proventil HFA 90 mcg/actua tion aerosol inhaler 2 puffs 4 times a day- needs a spacer 04/01 completed Not Available Not Available Not Available lisinopri l 5 mg tablet Take 1 tab daily active Not Available Not Available No t Available zolpidem 5 mg tablet TAKE 1-2 TABLETS BY MOUTH THE NIGHT OF SLEEP STUDY IF NEEDED 09/03 completed Not Available Not Available Not Available ergocalci ferol (vitamin D2) 1,250 mcg (50,000 unit) capsule 1 .twice weekly 09/18 completed Not Available Not Available Not Available Transderm -Scop 1 mg over 3 days transderm al patch one patch every three days. Start a day or two before on boat. 12/27 completed Not Available Not Available Not Available triamcino lone acetonide 0.1 % lotion lotion bid 09/21 completed Not Available Not Available Not Available estradiol 0.01% (0.1 mg/gram) vaginal cream active Not Available Not Available Not Available ferrous sulfate 325 mg (65 mg iron) tablet,de layed release active Not Available Not Available Not Available metformin ER 500 mg tablet,ex tended release 24 hr Take 1 tab by mouth daily 04/01 completed Not Available Not Available Not Available Adult Aspirin EC Low Strength 81 mg tablet,de layed release Take 1 tablet every day by oral route. active aspirin [Adult Aspirin Regimen] 81 mg tablet,d elayed release (DR/EC) 81 mg PO DAILY Not Available Not Available Not Available doxycycli ne hyclate 100 mg tablet Take 1 tab by mouth twice daily for 7 days 08/24 completed Not Available Not Available Not Available Vitamin B-12 1,000 mcg tablet 1 tab daily 2019 active Not Available Not Available Not Avai lable Tylenol Extra Strength 500 mg tablet Take 1 tablet by mouth once a day 09/06 completed Not Available Not Available Not Available Toradol 10 mg tablet 1 qid 05/21 completed Not Available Not Available Not Available celecoxib 400 mg capsule Take 1 capsule every day by oral route as directed . 05/13 completed celecoxi b [Celebre x] 200 mg capsule 400 mg PO DAILY Not Available Not Available Not Available Novolog FlexPen U-100 Insulin aspart 100 unit/mL (3 mL) subcutane ous Inject 16-22 units subcutan eously per sliding scale before meals 2018 active Not Available Not Available Not Avai lable rosuvasta tin 20 mg tablet Take 1 tab daily active Not Available Not Available No t Available duloxetin e 20 mg capsule,d elayed release Take 1 cap daily active Not Available Not Available No t Available gabapenti n 300 mg tablet 1CAP TID until gone 09/21 completed Not Available Not Available Not Available BD Ultra-Fin e Mini Pen Needle 31 gauge x 10/18 USE 1 NEEDLE 5 TIMES DAILY DIRECTED active Not Available Not Available No t Available Byetta 10 mcg/dose( 250 mcg/mL)2. 4 mL subcutane ous pen injector inject twice a day 10/18 completed Not Available Not Available Not Available Byetta 5 mcg/dose (250 mcg/mL)1. 2 mL subcutane ous pen injector 5 mcg BID for a month, then increase to 10 mcg 10/18 completed Not Available Not Available Not Available ibuprofen 2013 active Not Available Not Available Not Avai lablc binh ba 07/21 completed Not Available Not Available Not Available calcium carbonate -vitamin D3 2013 active Not Available Not Available Not Avai lablc Mirena 08/02 completed Not Available Not Available Not Available Novolog FlexPen U-100 Insulin inj before dinner 09/21 completed Not Available Not Available Not Available Levemir FlexPen 100 unit/mL (3 mL) solution subcutane ous insulin pen Inject 50 unit subcutan eously every night 06/24 completed Not Available Not Available Not Available OneTouch UltraMini kit Use 1 kit as directed three times a day to check blood sugar DX: E11.9 04/25 completed per Yeny at [facility] she believes is covered Not Available Not Available Not Available calcium 600 mg (as carbonate )-vitamin D3 10 mcg (400 unit) tablet 2013 active Not Available Not Available Not Avai lable Humalog KwikPen (U-100) Insulin 100 unit/mL subcutane ous Inject 25 unit subcutan eously three times a day as directed before meals active Not Available Not Available No t Available omeprazol e 20 mg tablet,de layed release Take 1cap by mouth daily 07/31 completed Not Available Not Available Not Available melatonin 5 mg tablet Take 1/2 tab by mouth at bedtime as needed 2019 active Not Available Not Available Not Avai lable azelastin e 205.5 mcg (0.15 %) nasal spray [place] 2 spray into both nostrils once a day 2021 active Not Available Not Available Not Avai lable OneTouch Verio test strips Use three times daily as directed DX: E11.9 active Not Available Not Available No t Available Victoza 2-Jb 0.6 mg/0.1 mL (18 mg/3 mL) subcutane ous pen injector inject daily- 0.6 mg daily for two weeks, then increase to 1.2 mg daily if tolerate d. 08/07 completed Not Available Not Available Not Available Invokana 100 mg tablet Take 1 tablet every day by oral route. 03/19 completed Not Available Not Available Not Available Jardiance 25 mg tablet take one tab PO once a day active Not Available Not Available No t Available NovoFine Plus 32 gauge x 1/6 needle Use 1 once a day 02/14 completed Not Available Not Available Not Available Trulicity 0.75 mg/0.5 mL subcutane ous pen injector inject .75 mg SQ weekly 11/04 completed Not Available Not Available Not Available OneTouch Verio Meter Use 1 each to skin three times a day DX: E11.9 2021 active Not Available Not Available Not Avai lable riboflavi n (vitamin B2) 400 mg tablet Take 1 tablet every day by oral route. 12/15 completed stomach aches Not Available Not Available Not Available Basaglar KwikPen U-100 Insulin 100 unit/mL (3 mL) subcutane ous inj qd active Not Available Not Available Not Available Fiasp FlexTouch U-100 Insulin 100 unit/mL (3 mL) subcutane ous pen INJECT 25 UNITS UNDER THE SKIN FOUR TIMES A DAY WITH MEALS 12/16 completed will sick with humalog Not Available Not Available Not Available Ozempic 0.25 mg or 0.5 mg (2 mg/1.5 mL) subcutane ous pen injector Inject 1/4 mg subcutan eously once a week Inject 0.25 mg weekly for 4 weeks, then increase dose to 0.5 mg weekly 01/19 completed Not Available Not Available Not Available OneTouch Delica Plus Lancet 30 gauge Use three times daily as directed active Not Available Not Available No t Available Paxlovid 300 mg (150 mg x 2)-100 mg tablets in a dose pack 3 tablet by mouth twice a day as directed Hold (do not take) Rosuvast atin while on this medicati on 12/16 completed Not Available Not Available Not Available Dexcom G7 Sensor device Apply 1 device to skin as directed DX: E11.9 Apply 1 sensor every 10 days active Not Available Not Available No t Available Vitals Date Recorded Body height Body mass index (BMI) Body weight Body temperature Oxygen saturation Oxygen saturation in Arterial blood by Pulse oximetry Respiratory rate Heart rate Systolic blood pressure Diastolic blood pressure Provider Name and Address Organization Details Last Updated DateTime 4 170.69 cm 27.6 kg/m2 66920.8 5 g 97.7 [degF] 96 % 96 % 16 /min 88 /min 128 mm[Hg] 68 mm[Hg] MANJULA BUSTILLO LPN [facility] 4 14:10:40 Social History Question Answer Notes LastModified by Organizat ion Details LastModified Time Tobacco Smoking Status Never Smoker MANJULA BUSTILLO LPN [facility] 09/06/2023 08:02:06 Would You Say That, In General, Your Health Is Good Information not available 03/18/2024 How Often Does Anyone, Including Family, Physically Hurt You? Never Information not available 03/18/2024 How Often Does Anyone, Including Family, Insult Or Talk Down To You? Rarely Information no t available 03/18/2024 How Often Does Anyone, Including Family, Threaten You With Harm? Never Information not available 03/18/2024 How Often Does Anyone, Including Family, Scream Or Curse At You? Never Information not available 03/18/2024 Within The Past 12 Months, You Worried That Your Food Would Run Out Before You Got Money To Buy More. Never True Information n ot available 03/18/2024 Within The Past 12 Months, The Food You Bought Just Didn't Last And You Didn't Have Money To Get More. Never True Information not available 03/18/2024 How Hard Is It For You To Pay For The Very Basics Like Food, Housing, Medical Care, And Heating? Would You Say It Is: Not Hard At All Information not available 03/18/2024 In The Past 12 Months, Has Lack Of Reliable Transportation Kept You From Medical Appointments, Meetings, Work Or From Getting Things Needed For Daily Living? No Information not available 03/18/2024 What Is Your Housing Situation Today? I Have Housing. Information not available 03/18/2024 How Often In The Past Year Have You Used Marijuana (including Smoking, Vaping, Dabbing, Or Edibles)? Never Information not available 03/18/2024 How Often In The Past Year Have You Used Prescription Medications That Were Not Prescribed To You? Never Information not available 03/18/2024 How Often In The Past Year Have You Taken Your Own Prescription Medication More Than The Way It Was Prescribed Or For Different Reasons Than Its Intended Purpose? Never Information not available 03/18/2024 How Often In The Past Year Have You Used Other Drugs (for Example, Heroin, Cocaine, Meth, Salvia, Inhalants)? Never Information not available 03/18/2024 Have You Ever Used IV Drugs? No Information not available 03/18/2024 Date Of Most Recent SBINS 03/18/2024 Information not available 03/18/2024 What Was The Date Of Your Most Recent Tobacco Screening? 07/17/2024 Information n ot available 07/17/2024 Has Tobacco Cessation Counseling Been Provided? No Information not available 09/06/2023 Do You Or Have You Ever Used Any Other Forms Of Tobacco Or Nicotine? No Information not available 09/06/2023 Sex: Female Functional Status None recorded. Mental Status None recorded. Family History Relationship Description Onset Age of this Age Resolved Age Notes LastModified by Organization Details LastModified Time Mother Malignant tumor of breast 49 Not available 2023 08:55:58 Father Essential hypertension Not available 08:56:21 Father Spinal stenosis Not available 2023 08:56:42 Sister Hodgkin's disease (clinical) Not available 03/18 08:57:34 Medical History No medical history recorded. Gynecological HistoryNo gynecological history recorded. Obstetrics History GPAL:G 0 P 0 0 0 0 Immunizations Vaccine Type Date Status Note Provider Nam e and Address Organization Details Recorded Time Tdap 8 completed Not Available [facility] 06/14/2023 05:35:00 Td(adult) unspecified formulation 5 completed Not Available [facility] 06/14/2023 05:35:00 Influenza, split virus, quadrivalent, PF 2 completed Not Available [facility] 06/14/2023 05:35:00 zoster recombinant 9 completed Not Available [facility] 06/14/2023 05:35:00 zoster recombinant 8 completed Not Available [facility] 06/14/2023 05:35:00 zoster recombinant 8 completed Not Available [facility] 06/14/2023 05:35:00 COVID-19, mRNA, LNP-S, PF, 100 mcg/0.5mL dose or 50 mcg/0.25mL dose 1 completed Not Available [facility] 06/14/2023 05:35:01 COVID-19, mRNA, LNP-S, PF, 100 mcg/0.5mL dose or 50 mcg/0.25mL dose 1 completed Not Available [facility] 06/14/2023 05:35:01 SARS-COV-2 (COVID-19) vaccine, UNSPECIFIED 1 completed Not Available [facility] 06/14/2023 05:35:01 SARS-COV-2 (COVID-19) vaccine, UNSPECIFIED 2 completed Not Available [facility] 06/14/2023 05:35:01 Pneumococcal conjugate PCV20, polysaccharide MID907 conjugate, adjuvant, PF 3 completed Not Available [facility] 06/14/2023 05:35:01 COVID-19, mRNA, LNP-S, bivalent, PF, 30 mcg/0.3 mL dose 3 completed Not Available [facility] 06/14/2023 05:35:01 pneumococcal polysaccharide PPV23 6 completed Not Available [facility] 06/14/2023 05:35:01 influenza, unspecified formulation 1 completed Not Available [facility] 06/14/2023 05:35:01 influenza, unspecified formulation 0 completed Not Available [facility] 06/14/2023 05:35:01 influenza, unspecified formulation 4 completed Not Available [facility] 06/14/2023 05:35:01 influenza, unspecified formulation 7 completed Not Available [facility] 06/14/2023 05:35:02 influenza, unspecified formulation 5 completed Not Available [facility] 06/14/2023 05:35:02 influenza, unspecified formulation 8 completed Not Available [facility] 06/14/2023 05:35:02 Tdap 4 completed DELMA OCONNOR, [facility] 07/17/2024 08:14:43 COVID-19, mRNA, LNP-S, PF, shahab-sucrose, 30 mcg/0.3 mL 3 completed Not Available [facility] 08/16/2023 05:31:43 SARS-COV-2 (COVID-19) vaccine, UNSPECIFIED 4 completed DELMA OCONNOR, [facility] 05/13/2024 14:16:09 Past Encounters Encounter ID Performer Location Encounter Start Date Encounter Closed Date Diagnosis/Indication Diagnosis SNOMED-CT Code Diagnosis ICD10 Code [id number] GENIE ABDULLAHI MD [address] [place] [address] 05/13/2024 14:00:41 05/13/2024 14:33:21 History of small bowel obstruction 3670765143 94589109 Z87.19 Anterior a bdominal wall mass 583438823 R19.09 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 Health Concerns Section Related Observation LastModified by Organization Detai ls LastModified Time None Recorded Concern Status LastModified by Organization Details LastModified Time None Recorded Payers Encounter Date Sequence Insurance Name Policy Number Policy Hinson Covered Member ID Hinson Member ID Guarantor Name 05/13/2024 1 [facility] [id number] Chandrika Casanova [id number] Chandrika Casanova Notes Date Note Type Note Provider Name and Address Organization Details Recorded Time 05/13/2024 text/html Patient went to [facility] 04/21-04/25 d/t abd pain and bloating. She was advised to be evaluated by [facility] ER. She was admitted for SBO and acute DKA. She was very stressed out there.Had an episode of SVT requiring adensoine conversion. She did have a ruptured appendix when she was sick. She doesn't feel good today, off and on since her illness. She feels a bunch LLQ. Not painful. Just changed from levemir to basaglar recently, and was having lows so cut back from 50 units to 35 units. Still using humalog as premeal. Still eating soft foods due to the recent SBO. GENIE ABDULLAHI MD [address], [place], [address], [facility]. 05/13/2024 14:39:04 OBGyn Episode No OBEpisode recorded.
--- OUTSIDE RECORDS SUMMARY | 2024-07-17 08:22 | XMS_ITS | Encounter Summary ---
Author Organization [facility] Address [address] [place] [address] Care Team Providers Care Communication Clerk Name Role Phone Genie Abdullahi MD Primary Care Provider [phone] Encounter Details Date Type Department Care Team (Late st Contact Info) Description 04/19/2022 Lab Requisition [facility] Pathology & Laboratory Medicine - [address] [id number] Outr Resulting Lab, Provider Social History Tobacco [...] Procedure Name Priority Date/Time Associated Diagnosis Comments URINE [id number] NE RATIO (ACR) Routine 04/18/2022 9:53 EDT documented in this encounter Results * URINE [id number] RATIO (ACR) (04/18/2022 9:53 EDT) Albumin, Urine <0.6 See Note mg/dL 04/19/2022 18:34 EDT [facility] Comment: NOTE: Reference range not established Creatinine, Urine 72.6 See Note mg/dL 04/19/2022 18:34 EDT [facility] Comment: NOTE: Reference range not established Lab Urine Albumin to Creatinine Ratio 04/19/2022 18:34 EDT [facility] Comment: Unable to calculate due to albumin result <0.6. Urine Albumin/Creatinine Ratio: Normal: <30 ug/mg Creatinine Moderately increased albuminuria: 30-300 ug/mg Creatinine Felipa increased albuminuria: >300 ug/mg Creatinine Urine URINE SPECIMEN COLLECTION, CLEAN CATCH / Unknown 04/18/2022 9:53 EDT 04/19/2022 17:25 EDT us Provider Outr Resulting Lab CHEMISTRY & BLOOD GA S ORDERABLES Final Result [facility] [address] [place] [address] documented in this encounter Visit Diagnoses Not on filedocumented in this encounter Care Teams Communication Clerk Relationship Specialty Start Date End Date Genie Abdullahi MD [address] [place] [phone] PCP - General 06/23/10 documented as of this encounter
--- OUTSIDE RECORDS SUMMARY | 2024-07-17 08:22 | XMS_ITS | Encounter Summary ---
Author Organization [facility] Address [address] [place] [address] Care Team Providers Care Training And Development Officer Name Role Phone Genie Abdullahi MD Primary Care Provider [phone] Encounter Details Date Type Department Care Team (Late st Contact Info) Description 11/30/2021 Lab Requisition [facility] Pathology & Laboratory Medicine - [address] [id number] Outr Resulting Lab, Provider Social History Tobacco [...] Procedure Name Priority Date/Time Associated Diagnosis Comments HIV 1/2 ANTIGEN AND ANTIBODY, 4TH GENERATION Routine 11/30/2021 7:55 EDT documented in this encounter Results * HIV 1/2 ANTIGEN AND ANTIBODY, 4TH GENERATION (11/30/2021 7:55 EDT) HIV 1 and 2 Antibody/p24 Antigen, 4th Generation Negative Negative 12/01/2021 10:26 EDT [facility] Comment:If acute HIV-1 infec tion is suspected in a high risk patient, submit plasma specimen for HIV-1 RNA quantitation test. Blood VENOUS BLOOD / Unknown 11/30/2021 7:55 EDT 11/30/2021 21:02 EDT Narrative [facility] - 12/01/2021 10:26 EDT Fourth Generation assay performed on the Siemens Centaur XPT. us Provider Outr Resulting Lab IMMUNOLOGY AND SEROL OGY ORDERABLES Final Result [facility] [address] [place] [address] documented in this encounter Visit Diagnoses Not on filedocumented in this encounter Care Teams Training And Development Officer Relationship Specialty Start Date End Date Genie Abdullahi MD [address] [place] [phone] PCP - General 06/23/10 documented as of this encounter
--- OUTSIDE RECORDS SUMMARY | 2024-07-17 08:22 | XMS_ITS | Encounter Summary ---
Author Organization [facility] Address [address] [place] [address] Care Team Providers Care Surveyor Geophysical Prospecting Name Role Phone Genie Abdullahi MD Primary Care Provider [phone] Encounter Details Date Type Department Care Team (Late st Contact Info) Description 06/22/2019 Lab Requisition [facility] Pathology & Laboratory Medicine - [address] [address] Unknown, Provider, Social History Tobacco Use Types Packs/Day Years [...] Procedure Name Priority Date/Time Associated Diagnosis Comments HOLD SST Routine 06/22/2019 21:53 EST RHEUMATOID FACTOR Routine 06/22/2019 15: 14 EST ANTI NUCLEAR AB (AMIE), IFA Routine 06/22/2019 15:14 EST documented in this encounter Results * HOLD SST (06/22/2019 21:53 EST) Hold Hold 06/22/2019 23:00 EST [facility] Blood VENOUS BLOOD / Unknown 06/22/2019 21:53 EST 06/22/2019 21:53 EST us Provider Unknown LAB INFO SERVICE AND SUPPORT & PHONE RESULT Final Result [facility] [address] [place] [address] * RHEUMATOID FACTOR (06/22/2019 15:14 EST) Rheumatoid Factor <7.5 <12.5 IU/mL 06/23/2019 12:34 EST [facility] Blood VENOUS BLOOD / Unknown 06/22/2019 15:14 EST 06/22/2019 21:53 EST us Provider Unknown CHEMISTRY & BLOOD GAS ORDERA BLES Final Result Performing Organization Address [facility] Co de Phone Number [facility] [address] [place] [address] * ANTI NUCLEAR AB (AMIE), IFA (06/22/2019 15:14 EST) Pathologist [facility] AMIE Interpretation Negative Negative 2018 14:28 EST [facility] Blood VENOUS BLOOD / Unknown 06/22/2019 15:14 EST 06/22/2019 21:53 EST Narrative [facility] - 06/23/2019 14:28 EST Results were obtained with the [employer] NOVA Lite HEp-2 AMIE Kit by indirect immunofluorescence. us Provider Unknown IMMUNOLOGY AND SEROLOGY ORDKarissa AYERS Final Result Performing Organization Address [facility] Co de Phone Number [facility] [address] [place] [address] documented in this encounter Visit Diagnoses Not on filedocumented in this encounter Care Teams Surveyor Geophysical Prospecting Relationship Specialty Start Date End Date Genie Abdullahi MD [address] [place] [phone] PCP - General 06/23/10 documented as of this encounter
--- OUTSIDE RECORDS SUMMARY | 2024-07-17 08:22 | XMS_ITS | Referral Summary ---
Author Organization [facility] Address [address] [place] [address] Care Team Providers Care Transitions Rn Care Coordinator Name Role Phone Genie Abdullahi MD Primary Care Provider [phone] Social History Tobacco Use Types Packs/Day Years Used Date Smoking Tobacco: Never Assessed Comments Unknown Sex and Gender Information Value Date Recorded Sex Assigned at Not on file Legal Sex Female 18:19 EST Gender Identity Not on file Sexual Orientation Not on file Plan of Treatment Not on file Care Teams Transitions Rn Care Coordinator Relationship Specialty Start Date End Date Genie Abdullahi MD [address] [place] [phone] PCP - General 06/23/10
--- OUTSIDE RECORDS SUMMARY | 2024-07-17 08:22 | XMS_ITS | Encounter Summary ---
Author Organization [facility] Address [address] [place] [address] Care Team Providers Care Ornamental Metal Fabricator Apprentice Name Role Phone Unavailable Primary Care Provider Unavailabl e Encounter Details Date Type Department Care Team (Late st Contact Info) Description 12/06/2005 14:22 EDT Hospital Encounter [facility] [address] [place] [address] Jesus Juarez MD [address] [place] [address] [address] [place] [phone] Social History Tobacco Use Types Packs/Day Years [...] Procedure Name Priority Date/Time Associated Diagnosis Comments CYTOPATHOLOGY Routine 05/31/2008 0:00 EDT documented in this encounter Results * CYTOPATHOLOGY (05/31/2008 0:00 EDT) Pathology Report: CYTOPATHOLOGY REPORT ? Reports generated via electronic interface contain original data; ? however they are lacking the format of the original report. ? Caution should be taken when reading/interpreti ng unformatted reports. ? Name: ? CHANDRIKA MERAZ ? Accession #: ? [id number] ? : ? 1965 (Age: 42) ??F ?Collect Date: ? 05/31/2008 ? Location: ? [facility] ? Receive Date: ? 06/01/2008 ? Provider: ?LUCI M CARLYN BOOM STICK MAN ? Copy to: ? Specimen/Source: ?Pap Test, Cervix/Endocervix, ThinPrep Imaging System ? with manual evaluation ? Last Menstrual Period: ? 10/19/08 ? Other: ? HPVDX - HPV testing requested regardless of diagnosis on current ThinPrep Pap ?? test. ? SPECIMEN ADEQUACY ? Satisfactory for Evaluation ? - transformation zone component present ? GENERAL CATEGORIZATION ? Negative for Intraepithelial Lesion or Malignancy ? Document reviewed and electronically signed by: ? Lynan Jam, [place](ASCP) ? Report Date: ??06/03/2008 16:38 ? End of Report ? KYLER CRUZ 05/31/2008 06/01/2008 us Luci Lobo NP PATHOLOGY ORDERABLES Final Re sult [facility] [address] [place] [address] documented in this encounter Visit Diagnoses Not on filedocumented in this encounter
--- OUTSIDE RECORDS SUMMARY | 2024-07-17 08:22 | XMS_ITS | Encounter Summary ---
Author Organization [facility] Address [address] [place] [address] Care Team Providers Care Rubber Chemist Name Role Phone Unavailable Primary Care Provider Unavailabl e Encounter Details Date Type Department Care Team (Late st Contact Info) Description 11/08/2005 Before PRISM Converted Visit ([facility]) [facility] - [facility] conversion [address] [place] [address] Jesus Juarez MD [address] [facility], [facility] [address] [place] [id number] Social History Tobacco Use Types Packs/Day Years Used Date Smoking Tobacco: Never Assessed Comments Unknown Sex and Gender Information Value Date Recorded Sex Assigned at Not on file Legal Sex Female 18:19 EST Gender Identity Not on file Sexual Orientation Not on file documented as of this encounter Progress Notes * Jesus Juarez MD - 07/29/2009 0759 EST DIVISION OF GENERAL SURGERY PROGRESS/FOLLOWUP NOTE - 12/06/2005 S: I am seeing Chandrika Casanova in the office today in follow-up for her GERD. It has been approximately one month since her initial office consultation. She continues to have symptoms of heartburn and full, bloated feeling. O: On exam, abdomen is soft, benign. Her wireless pH probe confirmed the results of her first pH probe four years ago. It showed some reflux but not a significant amount. Total acid pH was only 2.2 % with a DeMeester score of 9.1. She had a repeat gastric emptying scan which showed a T-1/2 of stomach emptying at 110 minutes which is only mildly delayed. Her upper endoscopy showed no evidence of esophagitis or hiatal hernia. A: Gastroesophageal reflux but not significant amount and certainly not something that we could correct with a laparoscopic Neri fundoplication. P: I think she should remain on her PPI therapy. Certainly a promotility agent may help some symptoms especially of bloating since she has mild delayed gastric emptying. I will defer treatment to herprimary doctor. o Signed by Jesus Juarez MD, FACS 01/10/2006 10:57 Madelyn Juarez MD, [id number] C Borrazzo, MD, FACS Jesus Juarez MD, FACS [phone] - Jesus Juarez MD, FACS A - cd Job ID: tape Document ID: [id number] cc: MD Ramesh Olmstead MD, FACG documented in this encounter Consult Notes * Jesus Juarez MD - 07/15/2009 1129 EST DIVISION OF GENERAL SURGERY CONSULTATION - November 08, 2005 Ramesh Almanza MD, FACG [facility] [place] [address] Dear Ramesh, Thanks for referring Chanrdika Casanova to me in consultation regarding her GERD and possible surgical fundoplication. I know you are well acquainted with her but for the record, I will state her history as follows. This is a 40old woman who has had a six year history of GERD. She complains of heartburn throughoutthe day, often times it is worse in the morning and she does wake up with heartburn at night occasionally. Her symptoms are exacerbated when she sleeps on her right side. She does elevate the head ofher bed. She has tried many proton pump inhibitors in the past but she has switched off each proton p ump inhibitor due to various side effects. She does complain of abdominal pain as well as nausea. She complains of daily water brash when she belches. She avoids certain foods such as citrus. Currently she is on Protonix which has some effect. Her symptoms return when she skips a dose of medication. She does complain of some significant bloating and gas. She does ???feel like she ate Thanksgiving dinner?? after every meal. She does complain of significant belching. She has no dysphagia, no chronic cough. She has a normal amount of flatus. Her workup included a pH probe and endoscopy almost five years ago. This showed no evidence of a hiatal hernia and no esophagitis. She underwent a 24-hour pH probe around the same time which showed only 0.8% reflux throughout the day distally which was well within the normal range. She had 21 reflux episodes with symptom correlation. She also had a gastric emptying scan 3-1/2 years ago which showed only 25% gastric emptying at 90 minutes. She is here today to discuss tithe possibility of laparoscopic Neri fundoplication. PAST MEDICAL HISTORY: Significant for GERD and osteoarthritis. PAST SURGICAL HISTORY: Multiple orthopedic surgeries, appendectomy in 1975, uterine suspension laparoscopically in 1996, tonsillectomy in the past, laparoscopic tubal ligation in 1991. FAMILY HISTORY: Mom of breast cancer at age forty nine. Dad alive with hypertension. SOCIAL HISTORY: Cigarettes none. Alcohol none. CURRENT MEDICATIONS: Protonix, Celebrex p.r.n. ALLERGIES: KEFLEX AND BACTRIM which cause a rash. REVIEW OF SYSTEMS: No weight loss. She does eat three meals a day. She has osteoarthritis of her hips and ankles. All other systems reviewed and negative. PHYSICAL EXAM: 57?? , weight 155 pounds. Afebrile. Vital signs are stable. General - no acute distress. HEENT normal. Neck supple. Skin normal. Lungs clear bilaterally. Heart regular rate and rhythm.Abdomen soft, non distended, non tender, no masses. Vascular normal. Musculoskeletal normal. Neurologic normal. In summary, this is a 40-year-old woman with GERD although her pH probe from four years ago showed acid reflux within the normal range. She also has some symptoms of gastroparesis as well which wouldmake side effects from surgery difficult. I think we should take this as a stepwise approach and evaluate what is causing her the most difficulty at this point. I think we would be better able to discern her GERD and quantify that with a 48-hour pH probe monitor. Since she has not had manometry before, I think we should add that to the test. We will set that up with [facility] in [place] since it is closer to her home. I also think we should obtain a repeat gastric emptying scan which we will schedule at [facility] for her. This should also be done for 150 minutes to get more data on how severe her gastroparesis might be. After the results of these tests, we will decide whether or not she is a candidate for antireflux surgery vs. medical therapy to treat her reflux and/or gastroparesis. I will see her back in the office after these tests are completed to discuss the results and formulate a plan of action. Thanks again for referring Chandrika Casanova to me. I look forward to participating in her care. I will let you know the results of her tests and how we decide to proceed. Thanks also for your continued confidence and support. Sincerely, Signed by Jesus Juarez MD, FACS 11/20/2005 17:29 Madelyn Juarez MD, [id number] C Borrazzo, MD, FACS Jesus Juarez MD, FACS [phone] - Jesus Juarez MD, FACS A - cd Job ID: tape Document ID: [id number] cc: MD Ramesh Olmstead MD, [facility] [address] [facility] [place] [address]* documented in this encounter Plan of Treatment Not on file documented as of this encounter Visit Diagnoses Not on filedocumented in this encounter
--- OUTSIDE RECORDS SUMMARY | 2024-07-17 08:22 | XMS_ITS | Encounter Summary ---
Author Organization [facility] Address [address] [place] [address] Care Team Providers Care Pain Management Nurse Practitioner Name Role Phone Unavailable Primary Care Provider Unavailabl e Encounter Details Date Type Department Care Team (Late st Contact Info) Description 04/08/2003 Results Only [facility] - [place] conversion [address] [place] [address] Luci Lobo, FLOR Social History Tobacco Use Types Packs/Day Years [...] Priority Date/Time Associated Diagnosis Comments CYTOPATHOLOGY Routine 04/08/2003 0:00 EDT documented in this encounter Results * CYTOPATHOLOGY (04/08/2003 0:00 EDT) Pathology Report: CYTOPATHOLOGY REPORT Reports generated via electronic interface contain original data; however they are lacking the format of the original report. Caution should be taken when reading/interpreti ng unformatted reports. Name: ? CHANDRIKA MERAZ ? Accession #: ? [id number] : ? 1965 (Age: 37) ??F ?Collect Date: ? 04/08/2003 Location: ? [facility] ? Receive Date: ? 04/09/2003 Provider: ?LUCI LOBO AMBULATORY SERVICE REPRESENTATIVE Copy to: ? Specimen/Source: ?ThinPrep Pap Test, Cervix/Endocervix Last Menstrual Period: ? 03/21/03 ? SPECIMEN ADEQUACY ? Satisfactory for Evaluation - transformation zone component present GENERAL CATEGORIZATION ? Negative for Intraepithelial Lesion or Malignancy ? Document reviewed and electronically signed by: ? Ranjan Ovalle, CT(ASCP) ? Report Date: ??04/13/2003 09:58 End of Report KYLER CRUZ 04/08/2003 04/09/2003 us Luci Lobo NP PATHOLOGY ORDERABLES Final Re sult KYLER CRUZ [address] [place] [address] documented in this encounter Visit Diagnoses Not on filedocumented in this encounter
--- OUTSIDE RECORDS SUMMARY | 2024-07-17 08:22 | XMS_ITS | Data Portability ---
Author Organization [facility], [facility] Address [address] [place] [address] Assessment Encounter Date Assessment Date Assessment LastModified by Organization Details LastModified Time 09/06/2023 09/06/2023 The total time devoted to today's encounter, including both the enha-xt-pmae time with the patient and/or family/caregi constantine and urm-pitt-ra-f irene time I personally spent is 33 minutes. Not available 09/06/2023 09:38:26 12/16/2023 12/16/2023 The total time devoted to today's encounter, including both the kcmc-ze-kmfw time with the patient and/or family/caregi constantine and atb-embj-yh-f riene time I personally spent is 32 minutes. Not available 12/16/2023 15:24:55 05/13/2024 05/13/2024 The total time devoted to today's encounter, including both the ienh-fi-jugq time with the patient and/or family/caregi constantine and wam-fasl-vd-f irene time I personally spent is 24 minutes. Not available 05/13/2024 14:38:43 Plan of Treatment Reminders Order Date Submit Date Provider Last Modified By Organization Details Last Modified Time Details Appointments Follow Up 20 2023 08:00A M Sang Abdullahi Not available Not available Not available Lab hemoglobi n A1C, fingersti ck 2023 024 [facility], [address], [place], [address], 09/06/2023 09:33:52 BMP, serum or plasma 2023 024 [facility] ([facility]), [address] [place] [address] , [place], [address], 03/12/2024 21:55:22 microalbu min, urine 2023 024 [facility] ([facility]), [address] [place] [address] , [place], [address], 03/12/2024 21:56:00 hemoglobi n A1C, fingersti ck [email or web address], [address], [place], [address], 12/16/2023 15:16:22 hemoglobi n A1C, fingersti ck [email or web address], [address], [place], [address], 05/13/2024 14:42:29 Referral None recorded. Procedures None recorded. Surgeries None recorded. Imaging None recorded. Medication Orders riboflavi n (vitamin B2) 400 mg tablet 2023 024 [facility], [address] [place] [address], [address], 12/16/2023 10:22:05 Fiasp FlexTouch U-100 Insulin 100 unit/mL (3 mL) subcutane ous pen [address], [address] [place] [address], [facility], [place], [address], 12/17/2023 18:50:54 Fiasp FlexTouch U-100 Insulin 100 unit/mL (3 mL) subcutane ous pen 2023 024 [facility], [address] [place] [address], [address], 12/17/2023 18:50:54 Estring 2 mg (7.5 mcg/24 hour) vaginal ring 2023 [facility], [address] [place] [address], [address], 03/18/2024 11:36:46 indometha jesus 25 mg capsule 2023 024 MICHELLE [facility], [address] [place] [address], [address], 03/18/2024 11:53:03 duloxetin e 20 mg capsule,d elayed release 2023 MICHELLE [facility], [address] [place] [address], [address], 03/18/2024 11:53:25 lisinopri l 5 mg tablet 2023 024 [facility], [address] [place] [address], [address], 03/18/2024 11:36:46 rosuvasta tin 20 mg tablet 2023 024 [facility], [address] [place] [address], [address], 03/18/2024 11:36:46 Levemir FlexPen 100 unit/mL (3 mL) solution subcutane ous insulin pen 2023 024 [facility], [address] [place] [address], [address], [place], [address], 06/24/2024 12:19:11 Humalog KwikPen (U-100) Insulin 100 unit/mL subcutane ous 2023 024 MICHELLE [facility], [address] [place], [address], 03/18/2024 09:08:30 Invokana 100 mg tablet 2023 024 MICHELLE [facility], [address] [place] [address], [id number], 03/19/2024 16:53:25 Patient TargetsNo targets recorded. Patient Instructions Encounter Date Encounter Id Patient Instructions Last Modified By Organization Details Last Modified Time 09/06/2023 [id number] exercise Not available 09/06 09:39:02 When you talk to [facility], find out if TOUJEO or TRESIBA insulin (longer acting than levemir) are affordable or not. Lets see if FIASP insulin, which is FASTER than humalog, is affordable. Try to pay attention to what makes a good day or a bad day for your blood sugars. For headaches, try vitamin B2 400 mg Consider taking the iron EVERY OTHER day, may be better absorbed, may cause less constipation. Not available 09/06/2023 09:11:23 12/16/2023 [id number] continue exercise Not availab le 12/16/2023 15:24:22 Reason for Referral None Reported. Results Created Date Observation Date Name Description Value Unit Range Abnormal Flag Note LastModifiedBy Organization Detail LastModifiedTime 08/29/19 24 08/29/2023 MARTINEZ TIN ferritin 27 NG/mL 8-252 normal Not Available [address] , [place], [address] 08/29/2023 13:37:44 08/29/19 24 08/29/2023 MARTINEZ TIN ferritin 27 NG/mL 8-252 normal Not Available [address] [place], [address] 08/29/2023 15:45:10 09/06/19 24 09/06/2023 hemog lobin A1C, finge rstic k HGBA1C 7.3 % <5.7 Not Available [facility] [address], [place], [address], 09/06/2023 09:02:33 12/16/19 24 12/16/2023 hemog lobin A1C, ira rstic k hemoglobin A1C 6.6 % <5.7 Not Available [facility] [address], [place], [address], 12/16/2023 07:50:10 03/11/20 24 03/11/2024 BASIC METAB OLIC PANEL calcium 9.5 mg/dL 8.5-10 .1 normal Not Available [facility] ([facility]) [address] [place] [address] [place], [address], 03/11/2024 14:04:55 03/11/20 24 03/11/2024 BASIC METAB OLIC PANEL glucose 209 mg/dL 74-106 high Not Available [facility] ([facility]) [address] [place] [address] [place], [address], 03/11/2024 14:04:55 03/11/20 24 03/11/2024 BASIC METAB OLIC PANEL BUN 27 mg/dL 7-18 high Not Available [facility] ([facility]) [address] [place] [address] [place], [address], 03/11/2024 14:04:55 03/11/20 24 03/11/2024 BASIC METAB OLIC PANEL creatinine 0.9 mg/dL 0.55-1 .02 normal Not Available [facility]) [address] [place] [address] [place], [address], 03/11/2024 14:04:55 03/11/20 24 03/11/2024 BASIC METAB OLIC PANEL estimated GFR 73.19 mL/min /1.73m 2 The eGFR is calcu lated from a serum creat inine using the CKD-E PI 2020 equat ion. Other varia bles requi red for the equat ion are gende r and age; this equat ion does not inclu de a race coeff icien t. This equat ion has simil ar overa ll perfo rmanc e to previ ous equat ions excep t value s may diffe r, in parti cular , in patie nts with highe r value s of eGFR and young er-ag ed adult s. Not Available [facility] ([facility]) [address] [place] [address] [place], [address], 03/11/2024 14:04:55 03/11/20 24 03/11/2024 BASIC METAB OLIC PANEL sodium 139 mmol/ L 136-14 5 normal Not Available [facility]) [address] [place] [address] [place], [address], 03/11/2024 14:04:55 03/11/20 24 03/11/2024 BASIC METAB OLIC PANEL potassium 3.8 mmol/ L 3.5-5. 1 normal Not Available [facility]) [address] [place] [address] [place], [address], 03/11/2024 14:04:55 03/11/20 24 03/11/2024 BASIC METAB OLIC PANEL chloride 104 mmol/ L 98-107 normal Not Available [facility]) [address] [place] [address] [place], [address], 03/11/2024 14:04:55 03/11/20 24 03/11/2024 BASIC METAB OLIC PANEL CO2 22.1 mmol/ L 21.0-3 2.0 normal Not Available [facility]) [address] [place] [address] [place], [address], 03/11/2024 14:04:55 03/11/20 24 03/11/2024 BASIC METAB OLIC PANEL anion gap 12.9 mmol/ L 3-11 high Not Available [facility]) [address] [place] [address] [place], [address], 03/11/2024 14:04:55 03/11/20 24 03/11/2024 MICRO ALBUM IN microalbumin 7.9 mg/L 1.30-2 0.0 normal Not Available [facility] [address] [place] [address] [place], [address], 03/11/2024 14:07:58 03/11/20 24 03/11/2024 MICRO ALBUM IN creatinine urine 55.63 mg/dL Not Available [facility] [address] [place] [address] [place], [address], 03/11/2024 14:07:58 03/11/20 24 03/11/2024 MICRO ALBUM IN microalb ug/mg crea 14.2 ug/mg _cr Eloisa l: <30 ug/mg Crea Micro album inuri a: 30-30 0 ug/mg Crea Clini antony album inuri a: >300 ug/mg Crea Not Available [facility]) [address] [place] [address] [place], [address], 03/11/2024 14:07:58 03/18/20 24 03/18/2024 hemog lobin A1C, finge rstic k hemoglobin A1C 7.1 % <5.7 Not Available [facility] [address] , [place], [address], 05/13/2024 14:35:32 04/21/20 24 04/21/2024 COVID /FLU/ RSV PCR source Nasoph arynx Not Available [address] [place], [address] 04/21/2024 13:57:20 04/21/20 24 04/21/2024 COVID /FLU/ RSV PCR covid-19 PCR Negati ve negati ve This test has not been FDA clear ed or appro jes. This test has been autho rized by the FDA under an Emerg ency Use Autho rizat ion for use by autho rized labor atori es. This test has been autho rized only for detec tion of nucle ic acid from the 2018 novel coron a virus (2018 -nCoV ), influ kade A, influ kade B, and respi rator y syncy tial virus (RSV) , and not for the detec tion of any other virus es or patho gens. This test is only autho rized for the durat ion of the decla ratio n that circu mstan olu exist justi fying the autho rizat ion of emerg ency use of in vitro diagn ostic tests for detec tion and/o r diagn osis of 2019- nCoV under secti on 564(b )(1) of Act, 21 U.S.C ??? 360bb b-3(b )(1), unles s the autho rizat ion is termi nated or revok ed soone r. Negat levon resul ts do not precl ude 2019- nCoV, influ kade, and/o r RSV infec tion and shoul d not be used as the sole basis for treat ment or other patie nt manag ement decis ions. Negat levon resul ts must be combi lilian with clini antony obser vatio ns, patie nt histo ry, and epide miolo gical infor matio n. Testi ng perfo rmed at [facility] (CLIA #[id number]) on the [email or web address]. Not Available [address] [place], [address] 04/21/2024 13:57:20 04/21/20 24 04/21/2024 COVID /FLU/ RSV PCR influenza A PCR Negati ve negati ve Not Available [address] [facility] [place], [address] 04/21/2024 13:57:20 04/21/20 24 04/21/2024 COVID /FLU/ RSV PCR influenza B PCR Negati ve negati ve Not Available [address] [place], [address] 04/21/2024 13:57:20 04/21/20 24 04/21/2024 COVID /FLU/ RSV PCR RSV PCR Negati ve negati ve Not Available [address] [place], [address] 04/21/2024 13:57:20 04/21/20 24 04/21/2024 MICRO SCOPI C FINDI NGS WBC 0-2 hpf 0-5 Not Available Joey santos [address] [place], [address] 04/21/2024 13:19:41 04/21/20 24 04/21/2024 MICRO SCOPI C FINDI NGS RBC 0-2 hpf 0-2 Not Available Joey santos [address] [place], [address] 04/21/2024 13:19:41 04/21/20 24 04/21/2024 MICRO SCOPI C FINDI NGS epithelial cells Few hpf negati ve Not Available [address] [place], [address] 04/21/2024 13:19:41 04/21/20 24 04/21/2024 MICRO SCOPI C FINDI NGS bacteria Few hpf negati ve Not Available [address] [place], [address] 04/21/2024 13:19:41 04/21/20 24 04/21/2024 MICRO SCOPI C FINDI NGS crystals Negati ve hpf negati ve Not Available [address] [place], [address] 04/21/2024 13:19:41 04/21/20 24 04/21/2024 MICRO SCOPI C FINDI NGS mucus Negati ve negati ve Not Available [address] [place], [address] 04/21/2024 13:19:41 04/21/20 24 04/21/2024 MICRO SCOPI C FINDI NGS C S indicated? No Not Available [address] [place], [address] 04/21/2024 13:19:41 04/21/20 24 04/21/2024 URINA LYSIS color Yellow yellow Not Available Joey santos [address] [place], [address] 04/21/2024 13:19:40 04/21/20 24 04/21/2024 URINA LYSIS clarity Sl Cloudy clear Not Available Scott elena [address] [place], [address] 04/21/2024 13:19:40 04/21/20 24 04/21/2024 URINA LYSIS specific gravity 1.010 1.005- 1.025 normal Not Available [address] [place], [address] 04/21/2024 13:19:40 04/21/20 24 04/21/2024 URINA LYSIS pH 5.5 5-8 normal Not Available Joey santos [address] [place], [address] 04/21/2024 13:19:40 04/21/20 24 04/21/2024 URINA LYSIS leukocyte esterase Negati ve negati ve Not Available [address] [place], [address] 04/21/2024 13:19:40 04/21/20 24 04/21/2024 URINA LYSIS nitrite Negati ve negati ve Not Available [address] [place], [address] 04/21/2024 13:19:40 04/21/20 24 04/21/2024 URINA LYSIS protein Negati ve mg/dL neg-tr irene Not Available [address] [place], [address] 04/21/2024 13:19:40 04/21/20 24 04/21/2024 URINA LYSIS glucose >=1000 mg/dL negati ve abnormal Not Available [address] [place], [address] 04/21/2024 13:19:40 04/21/20 24 04/21/2024 URINA LYSIS ketones 15 mg/dL negati ve abnormal Not Available [address] [place], [address] 04/21/2024 13:19:40 04/21/20 24 04/21/2024 URINA LYSIS urobilinogen 0.2 mg/dL up to 0.2 Not Available [address] [place], [address] 04/21/2024 13:19:40 04/21/20 24 04/21/2024 URINA LYSIS bilirubin Negati ve negati ve Not Available [address] [place], [address] 04/21/2024 13:19:40 04/21/20 24 04/21/2024 URINA LYSIS blood Negati ve negati ve Not Available [address] [place], [address] 04/21/2024 13:19:40 04/21/20 24 04/21/2024 URINA LYSIS color Yellow yellow Not Available Joey santos [address] [place], [address] 04/21/2024 13:17:39 04/21/20 24 04/21/2024 URINA LYSIS clarity Sl Cloudy clear Not Available Scott elena [address] [place], [address] 04/21/2024 13:17:39 04/21/20 24 04/21/2024 URINA LYSIS specific gravity 1.010 1.005- 1.025 normal Not Available [address] [place], [address] 04/21/2024 13:17:39 04/21/20 24 04/21/2024 URINA LYSIS pH 5.5 5-8 normal Not Available Joey santos [address] [place], [address] 04/21/2024 13:17:39 04/21/20 24 04/21/2024 URINA LYSIS leukocyte esterase Negati ve negati ve Not Available [address] [place], [address] 04/21/2024 13:17:39 04/21/20 24 04/21/2024 URINA LYSIS nitrite Negati ve negati ve Not Available [address] [place], [address] 04/21/2024 13:17:39 04/21/20 24 04/21/2024 URINA LYSIS protein Negati ve mg/dL neg-tr irene Not Available [address] [place], [address] 04/21/2024 13:17:39 04/21/20 24 04/21/2024 URINA LYSIS glucose >=1000 mg/dL negati ve abnormal Not Available [address] [place], [address] 04/21/2024 13:17:39 04/21/20 24 04/21/2024 URINA LYSIS ketones 15 mg/dL negati ve abnormal Not Available [address] [place], [address] 04/21/2024 13:17:39 04/21/20 24 04/21/2024 URINA LYSIS urobilinogen 0.2 mg/dL up to 0.2 Not Available [address] [place], [address] 04/21/2024 13:17:39 04/21/20 24 04/21/2024 URINA LYSIS bilirubin Negati ve negati ve Not Available [address] [place], [address] 04/21/2024 13:17:39 04/21/20 24 04/21/2024 URINA LYSIS blood Negati ve negati ve Not Available [address] [place], [address] 04/21/2024 13:17:39 04/21/20 24 04/21/2024 TROPO LAWRENCE I troponin I < 4 NG/L <or=51 An eleva heather/a bnorm al tropo lawrence value above 51ng/ L for Femal e and above 76ng/ L for Male( which is the 99th perce ntile cutof f of a eloisa l, healt hy refer ence popul ation ) must be inter prete d in the julito xt of the clini antony prese ntati on. Clini antony and labor atory corre latio n is requi red to evalu ate for an acute myoca rdial infar ction . The resul ts of this assay can be false ly lower ed due to the consu mptio n of Bioti n (Alicia min B7). Not Available [address] [place], [address] 04/21/2024 12:08:23 04/21/20 24 04/21/2024 MAGNE SIUM magnesium 2.0 mg/dL 1.8-2. 4 normal Not Available [address] [place], [address] 04/21/2024 12:08:22 04/21/20 24 04/21/2024 COMPR EHENS LEVON METAB OLIC PANEL calcium 9.0 mg/dL 8.5-10 .1 normal Not Available [address] [place], [address] 04/21/2024 12:08:21 04/21/20 24 04/21/2024 COMPR EHENS LEVON METAB OLIC PANEL glucose 109 mg/dL 74-106 high Not Available Joey santos [address] [place], [address] 04/21/2024 12:08:21 04/21/20 24 04/21/2024 COMPR EHENS LEVON METAB OLIC PANEL BUN 20 mg/dL 7-18 high Not Available Joey santos [address] [place], [address] 04/21/2024 12:08:21 04/21/20 24 04/21/2024 COMPR EHENS LEVON METAB OLIC PANEL creatinine 1.0 mg/dL 0.55-1 .02 normal Not Available [address] [place], [address] 04/21/2024 12:08:21 04/21/20 24 04/21/2024 COMPR EHENS LEVON METAB OLIC PANEL estimated GFR 64.49 mL/min /1.73M 2 The eGFR is calcu lated from a serum creat inine using the CKD-E PI 2020 equat ion. Other varia bles requi red for the equat ion are gende r and age; this equat ion does not inclu de a race coeff icien t. This equat ion has simil ar overa ll perfo rmanc e to previ ous equat ions excep t value s may diffe r, in parti cular , in patie nts with highe r value s of eGFR and young er-ag ed adult s. Not Available [address] [place], [address] 04/21/2024 12:08:21 04/21/20 24 04/21/2024 COMPR EHENS LEVON METAB OLIC PANEL total protein 7.0 g/dL 6.4-8. 2 normal Not Available [address] [place], [address] 04/21/2024 12:08:21 04/21/20 24 04/21/2024 COMPR EHENS LEVON METAB OLIC PANEL albumin 3.6 g/dL 3.4-5. 0 normal Not Available [address] [place], [address] 04/21/2024 12:08:21 04/21/20 24 04/21/2024 COMPR EHENS LEVON METAB OLIC PANEL bilirubin, total 0.74 mg/dL 0.2-1. 0 normal Not Available [address] [place], [address] 04/21/2024 12:08:21 04/21/20 24 04/21/2024 COMPR EHENS LEVON METAB OLIC PANEL alk phos 95 U/L 46-116 normal Not Available [address] [place], [address] 04/21/2024 12:08:21 04/21/20 24 04/21/2024 COMPR EHENS LEVON METAB OLIC PANEL sodium 136 mmol/ L 136-14 5 normal Not Available [address] [place], [address] 04/21/2024 12:08:21 04/21/20 24 04/21/2024 COMPR EHENS LEVON METAB OLIC PANEL potassium 3.6 mmol/ L 3.5-5. 1 normal Not Available [address] [place], [address] 04/21/2024 12:08:21 04/21/20 24 04/21/2024 COMPR EHENS LEVON METAB OLIC PANEL chloride 101 mmol/ L 98-107 normal Not Available [address] [place], [address] 04/21/2024 12:08:21 04/21/20 24 04/21/2024 COMPR EHENS LEVON METAB OLIC PANEL CO2 25.9 mmol/ L 21.0-3 2.0 normal Not Available [address] [place], [address] 04/21/2024 12:08:21 04/21/20 24 04/21/2024 COMPR EHENS LEVON METAB OLIC PANEL anion gap 9.1 mmol/ L 3-11 normal Not Available [address] [place], [address] 04/21/2024 12:08:21 04/21/20 24 04/21/2024 COMPR EHENS LEVON METAB OLIC PANEL AST 32 U/L 15-37 normal Not Available Joey santos [address] [place], [address] 04/21/2024 12:08:21 04/21/20 24 04/21/2024 COMPR EHENS LEVON METAB OLIC PANEL ALT 45 U/L 14-59 normal Not Available Joey santos [address] [place], [address] 04/21/2024 12:08:21 04/21/20 24 04/21/2024 COMPL ETE BLOOD COUNT W/DIF F WBC 5.40 10_3/ uL 4.4-10 .8 normal Not Available [address] [place], [address] 04/21/2024 11:55:19 04/21/20 24 04/21/2024 COMPL ETE BLOOD COUNT W/DIF F RBC 5.45 10_6/ uL 3.93-5 .22 high Not Available [address] [place], [address] 04/21/2024 11:55:19 04/21/20 24 04/21/2024 COMPL ETE BLOOD COUNT W/DIF F HGB 16.2 g/dL 11.2-1 5.7 high Not Available [address] [place], [address] 04/21/2024 11:55:19 04/21/20 24 04/21/2024 COMPL ETE BLOOD COUNT W/DIF F HCT 48.9 % 36.0-4 6.0 high Not Available [address] [place], [address] 04/21/2024 11:55:19 04/21/20 24 04/21/2024 COMPL ETE BLOOD COUNT W/DIF F MCV 90 fL 80-95 normal Not Available [address] [place], [address] 04/21/2024 11:55:19 04/21/20 24 04/21/2024 COMPL ETE BLOOD COUNT W/DIF F MCH 29.7 pg 27.0-3 3.0 normal Not Available [address] [place], [address] 04/21/2024 11:55:19 04/21/20 24 04/21/2024 COMPL ETE BLOOD COUNT W/DIF F MCHC 33.1 % 32.0-3 6.0 normal Not Available [address] [place], [address] 04/21/2024 11:55:19 04/21/20 24 04/21/2024 COMPL ETE BLOOD COUNT W/DIF F RDW 12.6 % 11.7-1 4.6 normal Not Available [address] [place], [address] 04/21/2024 11:55:19 04/21/20 24 04/21/2024 COMPL ETE BLOOD COUNT W/DIF F platelet count 177 10_3/ uL 130-40 0 normal Not Available [address] [place], [address] 04/21/2024 11:55:19 04/21/20 24 04/21/2024 COMPL ETE BLOOD COUNT W/DIF F MPV 9.5 fL 8.0-11 .0 normal Not Available [address] [place], [address] 04/21/2024 11:55:19 04/21/20 24 04/21/2024 COMPL ETE BLOOD COUNT W/DIF F neutrophils % 60.1 % Not Available [facility] [address] [place], [address] 04/21/2024 11:55:19 04/21/20 24 04/21/2024 COMPL ETE BLOOD COUNT W/DIF F lymphocytes % 22.8 % Not Available [facility] [address] [place], [address] 04/21/2024 11:55:19 04/21/20 24 04/21/2024 COMPL ETE BLOOD COUNT W/DIF F monocytes % 13.1 % Not Available [address] [place], [address] 04/21/2024 11:55:19 04/21/20 24 04/21/2024 COMPL ETE BLOOD COUNT W/DIF F eosinophils % 3.0 % Not Available [address] [place], [address] 04/21/2024 11:55:19 04/21/20 24 04/21/2024 COMPL ETE BLOOD COUNT W/DIF F basophils % 0.6 % Not Available [address] [place], [address] 04/21/2024 11:55:19 04/21/20 24 04/21/2024 COMPL ETE BLOOD COUNT W/DIF F immature grans % 0.4 % Not Available [address] [place], [address] 04/21/2024 11:55:19 04/21/20 24 04/21/2024 COMPL ETE BLOOD COUNT W/DIF F nucleated RBC 0.0 % 0.0-0. 3 normal Not Available [address] [place], [address] 04/21/2024 11:55:19 04/21/20 24 04/21/2024 COMPL ETE BLOOD COUNT W/DIF F absolute neutrophil count 3.25 10_3/ uL 1.2-6. 7 normal Not Available [address] [place], [address] 04/21/2024 11:55:04/21/20 24 04/21/2024 COMPL ETE BLOOD COUNT W/DIF F absolute lymphocyte count 1.23 10_3/ uL 1.2-3. 4 normal Not Available [address] [place], [address] 04/21/2024 11:55:19 04/21/20 24 04/21/2024 COMPL ETE BLOOD COUNT W/DIF F absolute monocyte count 0.71 10_3/ uL 0.1-0. 8 normal Not Available [address] [place], [address] 04/21/2024 11:55:19 04/21/20 24 04/21/2024 COMPL ETE BLOOD COUNT W/DIF F absolute eosinophil count 0.16 10_3/ uL 0.0-0. 7 normal Not Available [address] [place], [address] 04/21/2024 11:55:19 04/21/20 24 04/21/2024 COMPL ETE BLOOD COUNT W/DIF F absolute basophil count 0.03 10_3/ uL 0.0-0. 2 normal Not Available [address] [place], [address] 04/21/2024 11:55:19 04/21/20 24 04/21/2024 LIPAS E lipase 21 U/L 16-77 normal Not Available Joey santos [address] [place], [address] 04/21/2024 12:17:25 04/22/20 24 04/22/2024 TROPO LAWRENCE I troponin I 15 NG/L <or=51 An eleva heather/a bnorm al tropo lawrence value above 51ng/ L for Femal e and above 76ng/ L for Male( which is the 99th perce ntile cutof f of a eloisa l, healt hy refer ence popul ation ) must be inter prete d in the julito xt of the clini antony prese ntati on. Clini antony and labor atory corre latio n is requi red to evalu ate for an acute myoca rdial infar ction . The resul ts of this assay can be false ly lower ed due to the consu mptio n of Bioti n (Alicia min B7). Not Available [address] [place], [address] 04/22/2024 14:37:52 04/22/20 24 04/22/2024 TSH (W/RE F FT4) TSH (w/ref FT4) 0.81 uIU/m L 0.36-3 .74 normal Not Available [address] [place], [address] 04/22/2024 11:08:16 04/22/20 24 04/22/2024 TROPO LAWRENCE I troponin I 7 NG/L <or=51 An eleva heather/a bnorm al tropo lawrence value above 51ng/ L for Femal e and above 76ng/ L for Male( which is the 99th perce ntile cutof f of a eloisa l, healt hy refer ence popul ation ) must be inter prete d in the julito xt of the clini antony prese ntati on. Clini antony and labor atory corre latio n is requi red to evalu ate for an acute myoca rdial infar ction . The resul ts of this assay can be false ly lower ed due to the consu mptio n of Bioti n (Alicia min B7). Not Available [address] [place], [address] 04/22/2024 10:47:09 04/22/20 24 04/22/2024 MAGNE SIUM magnesium 1.7 mg/dL 1.8-2. 4 low Not Available [address] [facility] [place], [address] 04/22/2024 07:15:29 04/22/20 24 04/22/2024 BASIC METAB OLIC PANEL calcium 8.7 mg/dL 8.5-10 .1 normal Not Available [address] [place], [address] 04/22/2024 07:15:28 04/22/20 24 04/22/2024 BASIC METAB OLIC PANEL glucose 91 mg/dL 74-106 normal Not Available Joey santos [address] [place], [address] 04/22/2024 07:15:28 04/22/20 24 04/22/2024 BASIC METAB OLIC PANEL BUN 18 mg/dL 7-18 normal Not Available Joey santos [address] [place], [address] 04/22/2024 07:15:28 04/22/20 24 04/22/2024 BASIC METAB OLIC PANEL creatinine 0.8 mg/dL 0.55-1 .02 normal Not Available [address] [place], [address] 04/22/2024 07:15:28 04/22/20 24 04/22/2024 BASIC METAB OLIC PANEL estimated GFR 84.30 mL/min /1.73M 2 The eGFR is calcu lated from a serum creat inine using the CKD-E PI 2020 equat ion. Other varia bles requi red for the equat ion are gende r and age; this equat ion does not inclu de a race coeff icien t. This equat ion has simil ar overa ll perfo rmanc e to previ ous equat ions excep t value s may diffe r, in parti cular , in patie nts with highe r value s of eGFR and young er-ag ed adult s. Not Available [address] [place], [address] 04/22/2024 07:15:28 04/22/20 24 04/22/2024 BASIC METAB OLIC PANEL sodium 139 mmol/ L 136-14 5 normal Not Available [address] [place], [address] 04/22/2024 07:15:28 04/22/20 24 04/22/2024 BASIC METAB OLIC PANEL potassium 3.6 mmol/ L 3.5-5. 1 normal Not Available [address] [place], [address] 04/22/2024 07:15:28 04/22/20 24 04/22/2024 BASIC METAB OLIC PANEL chloride 105 mmol/ L 98-107 normal Not Available [address] [place], [address] 04/22/2024 07:15:28 04/22/20 24 04/22/2024 BASIC METAB OLIC PANEL CO2 23.3 mmol/ L 21.0-3 2.0 normal Not Available [address] [place], [address] 04/22/2024 07:15:28 04/22/20 24 04/22/2024 BASIC METAB OLIC PANEL anion gap 10.7 mmol/ L 3-11 normal Not Available [address] [place], [address] 04/22/2024 07:15:28 04/23/2004/24/2024 BASIC METAB OLIC PANEL calcium 8.5 mg/dL 8.5-10 .1 normal Not Available [address] [place], [address] 04/24/2024 00:05:48 04/23/20 24 04/24/2024 BASIC METAB OLIC PANEL glucose 149 mg/dL 74-106 high Not Available Joey santos [address] [place], [address] 04/24/2024 00:05:48 04/23/20 24 04/24/2024 BASIC METAB OLIC PANEL BUN 32 mg/dL 7-18 high Not Available Joey santos [address] [place], [address] 04/24/2024 00:05:48 04/23/20 24 04/24/2024 BASIC METAB OLIC PANEL creatinine 1.1 mg/dL 0.55-1 .02 high Not Available [address] [place], [address] 04/24/2024 00:05:48 04/23/20 24 04/24/2024 BASIC METAB OLIC PANEL estimated GFR 57.52 mL/min /1.73M 2 The eGFR is calcu lated from a serum creat inine using the CKD-E PI 2020 equat ion. Other varia bles requi red for the equat ion are gende r and age; this equat ion does not inclu de a race coeff icien t. This equat ion has simil ar overa ll perfo rmanc e to previ ous equat ions excep t value s may diffe r, in parti cular , in patie nts with highe r value s of eGFR and young er-ag ed adult s. Not Available [address] [place], [address] 04/24/2024 00:05:48 04/23/20 24 04/24/2024 BASIC METAB OLIC PANEL sodium 137 mmol/ L 136-14 5 normal Not Available [address] [place], [address] 04/24/2024 00:05:48 04/23/20 24 04/24/2024 BASIC METAB OLIC PANEL potassium 4.4 mmol/ L 3.5-5. 1 normal Not Available [address] [place], [address] 04/24/2024 00:05:48 04/23/20 24 04/24/2024 BASIC METAB OLIC PANEL chloride 107 mmol/ L 98-107 normal Not Available [address] [place], [address] 04/24/2024 00:05:48 04/23/20 24 04/24/2024 BASIC METAB OLIC PANEL CO2 13.7 mmol/ L 21.0-3 2.0 low Not Available [address] [place], [address] 04/24/2024 00:05:48 04/23/20 24 04/24/2024 BASIC METAB OLIC PANEL anion gap 16.3 mmol/ L 3-11 high Not Available [address] [place], [address] 04/24/2024 00:05:48 04/23/20 24 04/23/2024 LACTA TE lactate 0.9 mmol/ L 0.6-1. 4 normal Not Available [address] [place], [address] 04/23/2024 23:54:50 04/23/20 24 04/23/2024 BASIC METAB OLIC PANEL calcium 8.9 mg/dL 8.5-10 .1 normal Not Available [address] [place], [address] 04/23/2024 22:12:30 04/23/20 24 04/23/2024 BASIC METAB OLIC PANEL glucose 120 mg/dL 74-106 high Not Available Joey santos [address] [place], [address] 04/23/2024 22:12:30 04/23/20 24 04/23/2024 BASIC METAB OLIC PANEL BUN 31 mg/dL 7-18 high Not Available Joey santos [address] [place], [address] 04/23/2024 22:12:30 04/23/20 24 04/23/2024 BASIC METAB OLIC PANEL creatinine 1.2 mg/dL 0.55-1 .02 high Not Available [address] [place], [address] 04/23/2024 22:12:30 04/23/20 24 04/23/2024 BASIC METAB OLIC PANEL estimated GFR 51.82 mL/min /1.73M 2 The eGFR is calcu lated from a serum creat inine using the CKD-E PI 2020 equat ion. Other varia bles requi red for the equat ion are gende r and age; this equat ion does not inclu de a race coeff icien t. This equat ion has simil ar overa ll perfo rmanc e to previ ous equat ions excep t value s may diffe r, in parti cular , in patie nts with highe r value s of eGFR and young er-ag ed adult s. Not Available [address] [place], [address] 04/23/2024 22:12:30 04/23/20 24 04/23/2024 BASIC METAB OLIC PANEL sodium 139 mmol/ L 136-14 5 normal Not Available [address] [place], [address] 04/23/2024 22:12:30 04/23/20 24 04/23/2024 BASIC METAB OLIC PANEL potassium 4.7 mmol/ L 3.5-5. 1 normal Not Available [address] [place], [address] 04/23/2024 22:12:30 04/23/20 24 04/23/2024 BASIC METAB OLIC PANEL chloride 108 mmol/ L 98-107 high Not Available [address] [place], [address] 04/23/2024 22:12:30 04/23/20 24 04/23/2024 BASIC METAB OLIC PANEL CO2 12.2 mmol/ L 21.0-3 2.0 low Not Available [address] [place], [address] 04/23/2024 22:12:30 04/23/20 24 04/23/2024 BASIC METAB OLIC PANEL anion gap 18.8 mmol/ L 3-11 high Not Available [address] [place], [address] 04/23/2024 22:12:30 04/23/20 24 04/23/2024 BASIC METAB OLIC PANEL calcium 9.0 mg/dL 8.5-10 .1 normal Not Available [address] [place], [address] 04/23/2024 18:46:15 04/23/20 24 04/23/2024 BASIC METAB OLIC PANEL glucose 224 mg/dL 74-106 high Not Available Joey santos [address] [place], [address] 04/23/2024 18:46:15 04/23/20 24 04/23/2024 BASIC METAB OLIC PANEL BUN 31 mg/dL 7-18 high Not Available Joey santos [address] [place], [address] 04/23/2024 18:46:15 04/23/20 24 04/23/2024 BASIC METAB OLIC PANEL creatinine 1.3 mg/dL 0.55-1 .02 high Not Available [address] [place], [address] 04/23/2024 18:46:15 04/23/20 24 04/23/2024 BASIC METAB OLIC PANEL estimated GFR 47.08 mL/min /1.73M 2 The eGFR is calcu lated from a serum creat inine using the CKD-E PI 2020 equat ion. Other varia bles requi red for the equat ion are gende r and age; this equat ion does not inclu de a race coeff icien t. This equat ion has simil ar overa ll perfo rmanc e to previ ous equat ions excep t value s may diffe r, in parti cular , in patie nts with highe r value s of eGFR and young er-ag ed adult s. Not Available [address] [place], [address] 04/23/2024 18:46:15 04/23/20 24 04/23/2024 BASIC METAB OLIC PANEL sodium 138 mmol/ L 136-14 5 normal Not Available [address] [place], [address] 04/23/2024 18:46:15 04/23/20 24 04/23/2024 BASIC METAB OLIC PANEL potassium 5.1 mmol/ L 3.5-5. 1 normal Not Available [address] [place], [address] 04/23/2024 18:46:15 04/23/20 24 04/23/2024 BASIC METAB OLIC PANEL chloride 107 mmol/ L 98-107 normal Not Available [address] [place], [address] 04/23/2024 18:46:15 04/23/20 24 04/23/2024 BASIC METAB OLIC PANEL CO2 8.5 mmol/ L 21.0-3 2.0 low Not Available [address] [place], [address] 04/23/2024 18:46:15 04/23/2004/23/2024 BASIC METAB OLIC PANEL anion gap 22.5 mmol/ L 3-11 high Not Available [address] [place], [address] 04/23/2024 18:46:15 04/23/20 24 04/28/2024 BLOOD CULTU RE ( AGE => 8 YRS) blood culture ( age => 8 yrs) Blood Cultu re ( Age => 8 Yrs) NO GROWT H 120 HOURS Not Available [address] [place], [address] 04/28/2024 16:13:45 04/23/20 24 04/27/2024 BLOOD CULTU RE ( AGE => 8 YRS) blood culture ( age => 8 yrs) Blood Cultu re ( Age => 8 Yrs) NO GROWT H 96 HOURS Not Available [address] [place], [address] 04/27/2024 16:13:01 04/23/20 24 04/26/2024 BLOOD CULTU RE ( AGE => 8 YRS) blood culture ( age => 8 yrs) Blood Cultu re ( Age => 8 Yrs) NO GROWT H 72 HOURS Not Available [address] [place], [address] 04/26/2024 16:13:17 04/23/20 24 04/25/2024 BLOOD CULTU RE ( AGE => 8 YRS) blood culture ( age => 8 yrs) Blood Cultu re ( Age => 8 Yrs) NO GROWT H 48 HOURS Not Available [address] [place], [address] 04/25/2024 16:13:24 04/23/20 24 04/24/2024 BLOOD CULTU RE ( AGE => 8 YRS) blood culture ( age => 8 yrs) Blood Cultu re ( Age => 8 Yrs) NO GROWT H 24 HOURS Not Available [address] [place], [address] 04/24/2024 16:14:02 04/23/20 24 04/23/2024 MICRO SCOPI C FINDI NGS WBC 0-2 hpf 0-5 Not Available [address] [place], [address] 04/23/2024 16:35:58 04/23/20 24 04/23/2024 MICRO SCOPI C FINDI NGS RBC 3-5 hpf 0-2 abnormal Not Available [address] [place], [address] 04/23/2024 16:35:58 04/23/20 24 04/23/2024 MICRO SCOPI C FINDI NGS epithelial cells Many hpf negati ve Not Available [address] [place], [address] 04/23/2024 16:35:58 04/23/20 24 04/23/2024 MICRO SCOPI C FINDI NGS bacteria Few hpf negati ve Not Available [address] [place], [address] 04/23/2024 16:35:58 04/23/20 24 04/23/2024 MICRO SCOPI C FINDI NGS crystals Negati ve hpf negati ve Not Available [address] [place], [address] 04/23/2024 16:35:58 04/23/20 24 04/23/2024 MICRO SCOPI C FINDI NGS mucus Trace negati ve Not Available [address] [place], [address] 04/23/2024 16:35:58 04/23/20 24 04/23/2024 MICRO SCOPI C FINDI NGS casts 0-2 Coarse Granul ar lpf negati ve Not Available [address] [place], [address] 04/23/2024 16:35:58 04/23/20 24 04/23/2024 MICRO SCOPI C FINDI NGS C S indicated? No Not Available [address] [place], [address] 04/23/2024 16:35:58 04/23/20 24 04/23/2024 URINA LYSIS color Yellow yellow Not Available Joey santos [address] [place], [address] 04/23/2024 16:35:57 04/23/20 24 04/23/2024 URINA LYSIS clarity Clear clear Not Available Joey santos [address] [place], [address] 04/23/2024 16:35:57 04/23/20 24 04/23/2024 URINA LYSIS specific gravity 1.020 1.005- 1.025 normal Not Available [address] [place], [address] 04/23/2024 16:35:57 04/23/20 24 04/23/2024 URINA LYSIS pH 5.0 5-8 normal Not Available Joey santos [address] [place], [address] 04/23/2024 16:35:57 04/23/20 24 04/23/2024 URINA LYSIS leukocyte esterase Negati ve negati ve Not Available [address] [place], [address] 04/23/2024 16:35:57 04/23/20 24 04/23/2024 URINA LYSIS nitrite Negati ve negati ve Not Available [address] [place], [address] 04/23/2024 16:35:57 04/23/20 24 04/23/2024 URINA LYSIS protein Negati ve mg/dL neg-tr irene Not Available [address] [place], [address] 04/23/2024 16:35:57 04/23/20 24 04/23/2024 URINA LYSIS glucose 500 mg/dL negati ve abnormal Not Available [address] [place], [address] 04/23/2024 16:35:57 04/23/20 24 04/23/2024 URINA LYSIS ketones >=160 mg/dL negati ve abnormal Not Available [address] [place], [address] 04/23/2024 16:35:57 04/23/20 24 04/23/2024 URINA LYSIS urobilinogen 0.2 mg/dL up to 0.2 Not Available [address] [place], [address] 04/23/2024 16:35:57 04/23/20 24 04/23/2024 URINA LYSIS bilirubin Negati ve negati ve Not Available [address] [place], [address] 04/23/2024 16:35:57 04/23/20 24 04/23/2024 URINA LYSIS blood Trace- lysed negati ve abnormal Not Available [address] [place], [address] 04/23/2024 16:35:57 04/23/20 24 04/23/2024 URINA LYSIS color Yellow yellow Not Available Joey santos [address] [place], [address] 04/23/2024 16:35:42 04/23/20 24 04/23/2024 URINA LYSIS clarity Clear clear Not Available Joey santos [address] [place], [address] 04/23/2024 16:35:42 04/23/20 24 04/23/2024 URINA LYSIS specific gravity 1.020 1.005- 1.025 normal Not Available [address] [place], [address] 04/23/2024 16:35:42 04/23/20 24 04/23/2024 URINA LYSIS pH 5.0 5-8 normal Not Available Joey santos [address] [place], [address] 04/23/2024 16:35:42 04/23/20 24 04/23/2024 URINA LYSIS leukocyte esterase Negati ve negati ve Not Available [address] [place], [address] 04/23/2024 16:35:42 04/23/20 24 04/23/2024 URINA LYSIS nitrite Negati ve negati ve Not Available [address] [place], [address] 04/23/2024 16:35:42 04/23/20 24 04/23/2024 URINA LYSIS protein Negati ve mg/dL neg-tr irene Not Available [address] [place], [address] 04/23/2024 16:35:42 04/23/20 24 04/23/2024 URINA LYSIS glucose 500 mg/dL negati ve abnormal Not Available [address] [place], [address] 04/23/2024 16:35:42 04/23/20 24 04/23/2024 URINA LYSIS ketones >=160 mg/dL negati ve abnormal Not Available [address] [place], [address] 04/23/2024 16:35:42 04/23/20 24 04/23/2024 URINA LYSIS urobilinogen 0.2 mg/dL up to 0.2 Not Available [address] [place], [address] 04/23/2024 16:35:42 04/23/20 24 04/23/2024 URINA LYSIS bilirubin Negati ve negati ve Not Available [address] [place], [address] 04/23/2024 16:35:42 04/23/20 24 04/23/2024 URINA LYSIS blood Trace- lysed negati ve abnormal Not Available [address] [place], [address] 04/23/2024 16:35:42 04/23/20 24 04/23/2024 LIPAS E lipase 16 U/L 16-77 normal Not Available Joey santos [address] [place], [address] 04/23/2024 16:35:22 04/23/20 24 04/23/2024 C-IRAIDA CTIVE PROTE IN C-reactive protein 6.86 mg/dL <or=0. 5 high Not Available [address] [place], [address] 04/23/2024 16:35:21 04/23/20 24 04/23/2024 COMPR EHENS LEVON METAB OLIC PANEL calcium 9.1 mg/dL 8.5-10 .1 normal Not Available [address] [place], [address] 04/23/2024 16:35:21 04/23/20 24 04/23/2024 COMPR EHENS LEVON METAB OLIC PANEL glucose 279 mg/dL 74-106 high Not Available Joey santos [address] [place], [address] 04/23/2024 16:35:21 04/23/20 24 04/23/2024 COMPR EHENS LEVON METAB OLIC PANEL BUN 27 mg/dL 7-18 high Not Available Joey santos [address] [place], [address] 04/23/2024 16:35:21 04/23/20 24 04/23/2024 COMPR EHENS LEVON METAB OLIC PANEL creatinine 1.4 mg/dL 0.55-1 .02 high Not Available [address] [place], [address] 04/23/2024 16:35:21 04/23/20 24 04/23/2024 COMPR EHENS LEVON METAB OLIC PANEL estimated GFR 43.07 mL/min /1.73M 2 The eGFR is calcu lated from a serum creat inine using the CKD-E PI 2020 equat ion. Other varia bles requi red for the equat ion are gende r and age; this equat ion does not inclu de a race coeff icien t. This equat ion has simil ar overa ll perfo rmanc e to previ ous equat ions excep t value s may diffe r, in parti cular , in patie nts with highe r value s of eGFR and young er-ag ed adult s. Not Available [address] [place], [address] 04/23/2024 16:35:21 04/23/20 24 04/23/2024 COMPR EHENS LEVON METAB OLIC PANEL total protein 6.6 g/dL 6.4-8. 2 normal Not Available [address] [place], [address] 04/23/2024 16:35:21 04/23/20 24 04/23/2024 COMPR EHENS LEVON METAB OLIC PANEL albumin 3.2 g/dL 3.4-5. 0 low Not Available [address] [place], [address] 04/23/2024 16:35:21 04/23/20 24 04/23/2024 COMPR EHENS LEVON METAB OLIC PANEL bilirubin, total 0.65 mg/dL 0.2-1. 0 normal Not Available [address] [place], [address] 04/23/2024 16:35:21 04/23/20 24 04/23/2024 COMPR EHENS LEVON METAB OLIC PANEL alk phos 97 U/L 46-116 normal Not Available [address] [place], [address] 04/23/2024 16:35:21 04/23/20 24 04/23/2024 COMPR EHENS LEVON METAB OLIC PANEL sodium 135 mmol/ L 136-14 5 low Not Available [address] [place], [address] 04/23/2024 16:35:21 04/23/20 24 04/23/2024 COMPR EHENS LEVON METAB OLIC PANEL potassium 5.1 mmol/ L 3.5-5. 1 normal Not Available [address] [place], [address] 04/23/2024 16:35:21 04/23/20 24 04/23/2024 COMPR EHENS LEVON METAB OLIC PANEL chloride 103 mmol/ L 98-107 normal Not Available [address] [place], [address] 04/23/2024 16:35:21 04/23/20 24 04/23/2024 COMPR EHENS LEVON METAB OLIC PANEL CO2 10.0 mmol/ L 21.0-3 2.0 low Not Available [address] [place], [address] 04/23/2024 16:35:21 04/23/20 24 04/23/2024 COMPR EHENS LEVON METAB OLIC PANEL anion gap 22.0 mmol/ L 3-11 high Not Available [address] [place], [address] 04/23/2024 16:35:21 04/23/20 24 04/23/2024 COMPR EHENS LEVON METAB OLIC PANEL AST 19 U/L 15-37 normal Not Available Joey santos [address] [place], [address] 04/23/2024 16:35:21 04/23/20 24 04/23/2024 COMPR EHENS LEVON METAB OLIC PANEL ALT 33 U/L 14-59 normal Not Available Joey santos [address] [place], [address] 04/23/2024 16:35:21 04/23/20 24 04/23/2024 LACTA TE lactate 3.0 mmol/ L 0.6-1. 4 panic high Criti antony value repor heather to and readb ack from ALLIS ON MARCELO Polo,RN at 1148 04/23 by LAB.G BARRY Not Available [address] [place], [address] 04/23/2024 16:35:10 04/23/20 24 04/23/2024 COMPL ETE BLOOD COUNT W/DIF F WBC 13.04 10_3/ uL 4.4-10 .8 high Not Available [address] [place], [address] 04/23/2024 16:35:09 04/23/20 24 04/23/2024 COMPL ETE BLOOD COUNT W/DIF F RBC 4.76 10_6/ uL 3.93-5 .22 normal Not Available [address] [place], [address] 04/23/2024 16:35:09 04/23/20 24 04/23/2024 COMPL ETE BLOOD COUNT W/DIF F HGB 14.1 g/dL 11.2-1 5.7 normal Not Available [address] [place], [address] 04/23/2024 16:35:09 04/23/20 24 04/23/2024 COMPL ETE BLOOD COUNT W/DIF F HCT 44.7 % 36.0-4 6.0 normal Not Available [address] [place], [address] 04/23/2024 16:35:09 04/23/20 24 04/23/2024 COMPL ETE BLOOD COUNT W/DIF F MCV 94 fL 80-95 normal Not Available [address] [place], [address] 04/23/2024 16:35:09 04/23/20 24 04/23/2024 COMPL ETE BLOOD COUNT W/DIF F MCH 29.6 pg 27.0-3 3.0 normal Not Available [address] [place], [address] 04/23/2024 16:35:09 04/23/20 24 04/23/2024 COMPL ETE BLOOD COUNT W/DIF F MCHC 31.5 % 32.0-3 6.0 low Not Available [address] [place], [address] 04/23/2024 16:35:09 04/23/20 24 04/23/2024 COMPL ETE BLOOD COUNT W/DIF F RDW 13.2 % 11.7-1 4.6 normal Not Available [address] [place], [address] 04/23/2024 16:35:09 04/23/20 24 04/23/2024 COMPL ETE BLOOD COUNT W/DIF F platelet count 250 10_3/ uL 130-40 0 normal Not Available [address] [place], [address] 04/23/2024 16:35:09 04/23/20 24 04/23/2024 COMPL ETE BLOOD COUNT W/DIF F MPV 9.6 fL 8.0-11 .0 normal Not Available [address] [place], [address] 04/23/2024 16:35:09 04/23/20 24 04/23/2024 COMPL ETE BLOOD COUNT W/DIF F neutrophils % 80.2 % Not Available [address] [place], [address] 04/23/2024 16:35:09 04/23/20 24 04/23/2024 COMPL ETE BLOOD COUNT W/DIF F lymphocytes % 12.2 % Not Available [address] [place], [address] 04/23/2024 16:35:09 04/23/20 24 04/23/2024 COMPL ETE BLOOD COUNT W/DIF F monocytes % 6.8 % Not Available [address] [place], [address] 04/23/2024 16:35:09 04/23/20 24 04/23/2024 COMPL ETE BLOOD COUNT W/DIF F eosinophils % 0.0 % Not Available [address] [place], [address] 04/23/2024 16:35:09 04/23/20 24 04/23/2024 COMPL ETE BLOOD COUNT W/DIF F basophils % 0.2 % Not Available [address] [place], [address] 04/23/2024 16:35:09 04/23/20 24 04/23/2024 COMPL ETE BLOOD COUNT W/DIF F immature grans % 0.6 % Not Available [address] [place], [address] 04/23/2024 16:35:09 04/23/20 24 04/23/2024 COMPL ETE BLOOD COUNT W/DIF F nucleated RBC 0.0 % 0.0-0. 3 normal Not Available [address] [place], [address] 04/23/2024 16:35:09 04/23/20 24 04/23/2024 COMPL ETE BLOOD COUNT W/DIF F absolute neutrophil count 10.46 10_3/ uL 1.2-6. 7 high Not Available [address] [place], [address] 04/23/2024 16:35:09 04/23/20 24 04/23/2024 COMPL ETE BLOOD COUNT W/DIF F absolute lymphocyte count 1.59 10_3/ uL 1.2-3. 4 normal Not Available [address] [place], [address] 04/23/2024 16:35:09 04/23/20 24 04/23/2024 COMPL ETE BLOOD COUNT W/DIF F absolute monocyte count 0.89 10_3/ uL 0.1-0. 8 high Not Available [address] [place], [address] 04/23/2024 16:35:09 04/23/20 24 04/23/2024 COMPL ETE BLOOD COUNT W/DIF F absolute eosinophil count 0.00 10_3/ uL 0.0-0. 7 normal Not Available [address] [place], [address] 04/23/2024 16:35:09 04/23/20 24 04/23/2024 COMPL ETE BLOOD COUNT W/DIF F absolute basophil count 0.03 10_3/ uL 0.0-0. 2 normal Not Available [address] [place], [id number] 04/23/2024 16:35:09 04/23/20 24 04/23/2024 MAGNE SIUM magnesium 2.1 mg/dL 1.8-2. 4 normal Not Available [address] [place], [address] 04/23/2024 16:33:43 04/23/20 24 04/23/2024 BASIC METAB OLIC PANEL calcium 9.2 mg/dL 8.5-10 .1 normal Not Available [address] [place], [address] 04/23/2024 16:33:43 04/23/20 24 04/23/2024 BASIC METAB OLIC PANEL glucose 247 mg/dL 74-106 high Not Available Joey santos [address] [place], [id number] 04/23/2024 16:33:43 04/23/20 24 04/23/2024 BASIC METAB OLIC PANEL BUN 24 mg/dL 7-18 high Not Available Joey santos [address] [place], [id number] 04/23/2024 16:33:43 04/23/20 24 04/23/2024 BASIC METAB OLIC PANEL creatinine 1.1 mg/dL 0.55-1 .02 high Not Available [address] [place], [id number] 04/23/2024 16:33:43 04/23/20 24 04/23/2024 BASIC METAB OLIC PANEL estimated GFR 57.52 mL/min /1.73M 2 The eGFR is calcu lated from a serum creat inine using the CKD-E PI 2020 equat ion. Other varia bles requi red for the equat ion are gende r and age; this equat ion does not inclu de a race coeff icien t. This equat ion has simil ar overa ll perfo rmanc e to previ ous equat ions excep t value s may diffe r, in parti cular , in patie nts with highe r value s of eGFR and young er-ag ed adult s. Not Available [address] [place], [address] 04/23/2024 16:33:43 04/23/20 24 04/23/2024 BASIC METAB OLIC PANEL sodium 134 mmol/ L 136-14 5 low Not Available [address] [place], [address] 04/23/2024 16:33:43 04/23/20 24 04/23/2024 BASIC METAB OLIC PANEL potassium 5.3 mmol/ L 3.5-5. 1 high Not Available [address] [place], [address] 04/23/2024 16:33:43 04/23/20 24 04/23/2024 BASIC METAB OLIC PANEL chloride 103 mmol/ L 98-107 normal Not Available [address] [place], [address] 04/23/2024 16:33:43 04/23/20 24 04/23/2024 BASIC METAB OLIC PANEL CO2 8.2 mmol/ L 21.0-3 2.0 low Not Available [address] [place], [address] 04/23/2024 16:33:43 04/23/20 24 04/23/2024 BASIC METAB OLIC PANEL anion gap 22.8 mmol/ L 3-11 high Not Available [address] [place], [address] 04/23/2024 16:33:43 04/23/20 24 04/23/2024 COMPL ETE BLOOD COUNT NO DIFF WBC 11.90 10_3/ uL 4.4-10 .8 high Not Available [address] [place], [address] 04/23/2024 16:33:32 04/23/20 24 04/23/2024 COMPL ETE BLOOD COUNT NO DIFF RBC 4.81 10_6/ uL 3.93-5 .22 normal Not Available [address] [place], [address] 04/23/2024 16:33:32 04/23/20 24 04/23/2024 COMPL ETE BLOOD COUNT NO DIFF HGB 14.3 g/dL 11.2-1 5.7 normal Not Available [address] [place], [address] 04/23/2024 16:33:32 04/23/20 24 04/23/2024 COMPL ETE BLOOD COUNT NO DIFF HCT 44.8 % 36.0-4 6.0 normal Not Available [address] [place], [address] 04/23/2024 16:33:32 04/23/20 24 04/23/2024 COMPL ETE BLOOD COUNT NO DIFF MCV 93 fL 80-95 normal Not Available Joey santos [address] [place], [address] 04/23/2024 16:33:32 04/23/20 24 04/23/2024 COMPL ETE BLOOD COUNT NO DIFF MCH 29.7 pg 27.0-3 3.0 normal Not Available [address] [place], [address] 04/23/2024 16:33:32 04/23/20 24 04/23/2024 COMPL ETE BLOOD COUNT NO DIFF MCHC 31.9 % 32.0-3 6.0 low Not Available [address] [place], [address] 04/23/2024 16:33:32 04/23/20 24 04/23/2024 COMPL ETE BLOOD COUNT NO DIFF RDW 12.9 % 11.7-1 4.6 normal Not Available [address] [place], [address] 04/23/2024 16:33:32 04/23/20 24 04/23/2024 COMPL ETE BLOOD COUNT NO DIFF platelet count 231 10_3/ uL 130-40 0 normal Not Available [address] [place], [address] 04/23/2024 16:33:32 04/23/20 24 04/23/2024 COMPL ETE BLOOD COUNT NO DIFF MPV 10.0 fL 8.0-11 .0 normal Not Available [address] [place], [address] 04/23/2024 16:33:32 04/24/20 24 04/24/2024 BASIC METAB OLIC PANEL calcium 8.2 mg/dL 8.5-10 .1 low Not Available [address] [place], [address] 04/24/2024 19:46:16 04/24/20 24 04/24/2024 BASIC METAB OLIC PANEL glucose 280 mg/dL 74-106 high Not Available Joey santos [address] [place], [address] 04/24/2024 19:46:16 04/24/20 24 04/24/2024 BASIC METAB OLIC PANEL BUN 20 mg/dL 7-18 high Not Available Joey santos [address] [place], [address] 04/24/2024 19:46:16 04/24/20 24 04/24/2024 BASIC METAB OLIC PANEL creatinine 0.8 mg/dL 0.55-1 .02 normal Not Available [address] [place], [address] 04/24/2024 19:46:16 04/24/20 24 04/24/2024 BASIC METAB OLIC PANEL estimated GFR 84.30 mL/min /1.73M 2 The eGFR is calcu lated from a serum creat inine using the CKD-E PI 2020 equat ion. Other varia bles requi red for the equat ion are gende r and age; this equat ion does not inclu de a race coeff icien t. This equat ion has simil ar overa ll perfo rmanc e to previ ous equat ions excep t value s may diffe r, in parti cular , in patie nts with highe r value s of eGFR and young er-ag ed adult s. Not Available [address] [place], [address] 04/24/2024 19:46:16 04/24/20 24 04/24/2024 BASIC METAB OLIC PANEL sodium 139 mmol/ L 136-14 5 normal Not Available [address] [place], [address] 04/24/2024 19:46:16 04/24/20 24 04/24/2024 BASIC METAB OLIC PANEL potassium 3.8 mmol/ L 3.5-5. 1 normal Not Available [address] [place], [address] 04/24/2024 19:46:16 04/24/20 24 04/24/2024 BASIC METAB OLIC PANEL chloride 108 mmol/ L 98-107 high Not Available [address] [place], [address] 04/24/2024 19:46:16 04/24/20 24 04/24/2024 BASIC METAB OLIC PANEL CO2 22.3 mmol/ L 21.0-3 2.0 normal Not Available [address] [place], [address] 04/24/2024 19:46:16 04/24/20 24 04/24/2024 BASIC METAB OLIC PANEL anion gap 8.7 mmol/ L 3-11 normal Not Available [address] [place], [address] 04/24/2024 19:46:16 04/24/20 24 04/24/2024 BASIC METAB OLIC PANEL calcium 8.5 mg/dL 8.5-10 .1 normal Not Available [address] [place], [address] 04/24/2024 07:13:55 04/24/2004/24/2024 BASIC METAB OLIC PANEL glucose 126 mg/dL 74-106 high Not Available Joey santos [address] [place], [address] 04/24/2024 07:13:55 04/24/2004/24/2024 BASIC METAB OLIC PANEL BUN 28 mg/dL 7-18 high Not Available Joey santos [address] [place], [address] 04/24/2024 07:13:55 04/24/20 24 04/24/2024 BASIC METAB OLIC PANEL creatinine 1.0 mg/dL 0.55-1 .02 normal Not Available [address] [place], [address] 04/24/2024 07:13:55 04/24/2004/24/2024 BASIC METAB OLIC PANEL estimated GFR 64.49 mL/min /1.73M 2 The eGFR is calcu lated from a serum creat inine using the CKD-E PI 2020 equat ion. Other varia bles requi red for the equat ion are gende r and age; this equat ion does not inclu de a race coeff icien t. This equat ion has simil ar overa ll perfo rmanc e to previ ous equat ions excep t value s may diffe r, in parti cular , in patie nts with highe r value s of eGFR and young er-ag ed adult s. Not Available [address] [place], [address] 04/24/2024 07:13:55 04/24/20 24 04/24/2024 BASIC METAB OLIC PANEL sodium 140 mmol/ L 136-14 5 normal Not Available [address] [place], [address] 04/24/2024 07:13:55 04/24/20 24 04/24/2024 BASIC METAB OLIC PANEL potassium 3.5 mmol/ L 3.5-5. 1 normal Not Available [address] [place], [address] 04/24/2024 07:13:55 04/24/20 24 04/24/2024 BASIC METAB OLIC PANEL chloride 109 mmol/ L 98-107 high Not Available [address] [place], [address] 04/24/2024 07:13:55 04/24/20 24 04/24/2024 BASIC METAB OLIC PANEL CO2 20.2 mmol/ L 21.0-3 2.0 low Not Available [address] [place], [address] 04/24/2024 07:13:55 04/24/20 24 04/24/2024 BASIC METAB OLIC PANEL anion gap 10.8 mmol/ L 3-11 normal Not Available [address] [place], [address] 04/24/2024 07:13:55 04/24/20 24 04/24/2024 COMPL ETE BLOOD COUNT W/DIF F WBC 8.87 10_3/ uL 4.4-10 .8 normal Not Available [address] [place], [address] 04/24/2024 07:06:51 04/24/20 24 04/24/2024 COMPL ETE BLOOD COUNT W/DIF F RBC 3.78 10_6/ uL 3.93-5 .22 low Not Available [address] [place], [address] 04/24/2024 07:06:51 04/24/20 24 04/24/2024 COMPL ETE BLOOD COUNT W/DIF F HGB 11.3 g/dL 11.2-1 5.7 Not Available [address] [place], [address] 04/24/2024 07:06:51 04/24/20 24 04/24/2024 COMPL ETE BLOOD COUNT W/DIF F HCT 34.1 % 36.0-4 6.0 low Not Available [address] [place], [address] 04/24/2024 07:06:51 04/24/20 24 04/24/2024 COMPL ETE BLOOD COUNT W/DIF F MCV 90 fL 80-95 Not Available [address] [place], [address] 04/24/2024 07:06:51 04/24/20 24 04/24/2024 COMPL ETE BLOOD COUNT W/DIF F MCH 29.9 pg 27.0-3 3.0 normal Not Available [address] [place], [address] 04/24/2024 07:06:51 04/24/20 24 04/24/2024 COMPL ETE BLOOD COUNT W/DIF F MCHC 33.1 % 32.0-3 6.0 normal Not Available [address] [place], [address] 04/24/2024 07:06:51 04/24/20 24 04/24/2024 COMPL ETE BLOOD COUNT W/DIF F RDW 13.3 % 11.7-1 4.6 normal Not Available [address] [place], [address] 04/24/2024 07:06:51 04/24/20 24 04/24/2024 COMPL ETE BLOOD COUNT W/DIF F platelet count 176 10_3/ uL 130-40 0 normal Not Available [address] [place], [address] 04/24/2024 07:06:51 04/24/20 24 04/24/2024 COMPL ETE BLOOD COUNT W/DIF F MPV 9.6 fL 8.0-11 .0 normal Not Available [address] [place], [address] 04/24/2024 07:06:51 04/24/20 24 04/24/2024 COMPL ETE BLOOD COUNT W/DIF F neutrophils % 69.8 % Not Available [address] [place], [address] 04/24/2024 07:06:51 04/24/20 24 04/24/2024 COMPL ETE BLOOD COUNT W/DIF F lymphocytes % 17.8 % Not Available [address] [place], [address] 04/24/2024 07:06:51 04/24/20 24 04/24/2024 COMPL ETE BLOOD COUNT W/DIF F monocytes % 10.9 % Not Available [address] [place], [address] 04/24/2024 07:06:51 04/24/20 24 04/24/2024 COMPL ETE BLOOD COUNT W/DIF F eosinophils % 0.3 % Not Available [address] [place], [address] 04/24/2024 07:06:51 04/24/20 24 04/24/2024 COMPL ETE BLOOD COUNT W/DIF F basophils % 0.3 % Not Available [address] [place], [address] 04/24/2024 07:06:51 04/24/20 24 04/24/2024 COMPL ETE BLOOD COUNT W/DIF F immature grans % 0.9 % Not Available [address] [place], [address] 04/24/2024 07:06:51 04/24/20 24 04/24/2024 COMPL ETE BLOOD COUNT W/DIF F nucleated RBC 0.0 % 0.0-0. 3 normal Not Available [address] [place], [address] 04/24/2024 07:06:51 04/24/20 24 04/24/2024 COMPL ETE BLOOD COUNT W/DIF F absolute neutrophil count 6.18 10_3/ uL 1.2-6. 7 normal Not Available [address] [place], [address] 04/24/2024 07:06:51 04/24/20 24 04/24/2024 COMPL ETE BLOOD COUNT W/DIF F absolute lymphocyte count 1.58 10_3/ uL 1.2-3. 4 normal Not Available [address] [place], [address] 04/24/2024 07:06:51 04/24/20 24 04/24/2024 COMPL ETE BLOOD COUNT W/DIF F absolute monocyte count 0.97 10_3/ uL 0.1-0. 8 high Not Available [address] [place], [address] 04/24/2024 07:06:51 04/24/20 24 04/24/2024 COMPL ETE BLOOD COUNT W/DIF F absolute eosinophil count 0.03 10_3/ uL 0.0-0. 7 normal Not Available [address] [place], [address] 04/24/2024 07:06:51 04/24/20 24 04/24/2024 COMPL ETE BLOOD COUNT W/DIF F absolute basophil count 0.03 10_3/ uL 0.0-0. 2 normal Not Available [address] [place], [address] 04/24/2024 07:06:51 04/24/20 24 04/24/2024 BASIC METAB OLIC PANEL calcium 8.4 mg/dL 8.5-10 .1 low Not Available [address] [place], [address] 04/24/2024 07:50:57 04/24/20 24 04/24/2024 BASIC METAB OLIC PANEL glucose 153 mg/dL 74-106 high Not Available Joey santos [address] [place], [address] 04/24/2024 07:50:57 04/24/20 24 04/24/2024 BASIC METAB OLIC PANEL BUN 29 mg/dL 7-18 high Not Available Joey santos [address] [place], [address] 04/24/2024 07:50:57 04/24/20 24 04/24/2024 BASIC METAB OLIC PANEL creatinine 1.0 mg/dL 0.55-1 .02 normal Not Available [address] [place], [address] 04/24/2024 07:50:57 04/24/20 24 04/24/2024 BASIC METAB OLIC PANEL estimated GFR 64.49 mL/min /1.73M 2 The eGFR is calcu lated from a serum creat inine using the CKD-E PI 2020 equat ion. Other varia bles requi red for the equat ion are gende r and age; this equat ion does not inclu de a race coeff icien t. This equat ion has simil ar overa ll perfo rmanc e to previ ous equat ions excep t value s may diffe r, in parti cular , in patie nts with highe r value s of eGFR and young er-ag ed adult s. Not Available [address] [place], [address] 04/24/2024 07:50:57 04/24/2004/24/2024 BASIC METAB OLIC PANEL sodium 139 mmol/ L 136-14 5 normal Not Available [address] [place], [address] 04/24/2024 07:50:57 04/24/20 24 04/24/2024 BASIC METAB OLIC PANEL potassium 3.8 mmol/ L 3.5-5. 1 normal Not Available [address] [place], [address] 04/24/2024 07:50:57 04/24/20 24 04/24/2024 BASIC METAB OLIC PANEL chloride 110 mmol/ L 98-107 high Not Available [address] [place], [address] 04/24/2024 07:50:57 04/24/20 24 04/24/2024 BASIC METAB OLIC PANEL CO2 17.1 mmol/ L 21.0-3 2.0 low Not Available [address] [place], [address] 04/24/2024 07:50:57 04/24/20 24 04/24/2024 BASIC METAB OLIC PANEL anion gap 11.9 mmol/ L 3-11 high Not Available [address] [place], [address] 04/24/2024 07:50:57 04/24/20 24 04/24/2024 BASIC METAB OLIC PANEL calcium 8.6 mg/dL 8.5-10 .1 normal Not Available [address] [place], [address] 04/24/2024 02:38:12 04/24/20 24 04/24/2024 BASIC METAB OLIC PANEL glucose 167 mg/dL 74-106 high Not Available Joey santos [address] [place], [address] 04/24/2024 02:38:12 04/24/20 24 04/24/2024 BASIC METAB OLIC PANEL BUN 31 mg/dL 7-18 high Not Available Joey santos [address] [place], [address] 04/24/2024 02:38:12 04/24/20 24 04/24/2024 BASIC METAB OLIC PANEL creatinine 1.1 mg/dL 0.55-1 .02 high Not Available [address] [place], [address] 04/24/2024 02:38:12 04/24/20 24 04/24/2024 BASIC METAB OLIC PANEL estimated GFR 57.52 mL/min /1.73M 2 The eGFR is calcu lated from a serum creat inine using the CKD-E PI 2020 equat ion. Other varia bles requi red for the equat ion are gende r and age; this equat ion does not inclu de a race coeff icien t. This equat ion has simil ar overa ll perfo rmanc e to previ ous equat ions excep t value s may diffe r, in parti cular , in patie nts with highe r value s of eGFR and young er-ag ed adult s. Not Available [address] [place], [address] 04/24/2024 02:38:12 04/24/20 24 04/24/2024 BASIC METAB OLIC PANEL sodium 138 mmol/ L 136-14 5 normal Not Available [address] [place], [address] 04/24/2024 02:38:12 04/24/20 24 04/24/2024 BASIC METAB OLIC PANEL potassium 4.1 mmol/ L 3.5-5. 1 normal Not Available [address] [place], [address] 04/24/2024 02:38:12 04/24/20 24 04/24/2024 BASIC METAB OLIC PANEL chloride 109 mmol/ L 98-107 high Not Available [address] [place], [address] 04/24/2024 02:38:12 04/24/20 24 04/24/2024 BASIC METAB OLIC PANEL CO2 17.3 mmol/ L 21.0-3 2.0 low Not Available [address] [place], [address] 04/24/2024 02:38:12 04/24/20 24 04/24/2024 BASIC METAB OLIC PANEL anion gap 11.7 mmol/ L 3-11 high Not Available [address] [place], [address] 04/24/2024 02:38:12 04/25/20 24 04/25/2024 BASIC METAB OLIC PANEL calcium 8.1 mg/dL 8.5-10 .1 low Not Available [address] [place], [address] 04/25/2024 06:21:43 04/25/20 24 04/25/2024 BASIC METAB OLIC PANEL glucose 203 mg/dL 74-106 high Not Available Joey santos [address] [place], [address] 04/25/2024 06:21:43 04/25/20 24 04/25/2024 BASIC METAB OLIC PANEL BUN 16 mg/dL 7-18 normal Not Available Joey santos [address] [place], [address] 04/25/2024 06:21:43 04/25/20 24 04/25/2024 BASIC METAB OLIC PANEL creatinine 0.7 mg/dL 0.55-1 .02 normal Not Available [address] [place], [address] 04/25/2024 06:21:43 04/25/20 24 04/25/2024 BASIC METAB OLIC PANEL estimated GFR 98.95 mL/min /1.73M 2 The eGFR is calcu lated from a serum creat inine using the CKD-E PI 2020 equat ion. Other varia bles requi red for the equat ion are gende r and age; this equat ion does not inclu de a race coeff icien t. This equat ion has simil ar overa ll perfo rmanc e to previ ous equat ions excep t value s may diffe r, in parti cular , in patie nts with highe r value s of eGFR and young er-ag ed adult s. Not Available [address] [place], [address] 04/25/2024 06:21:43 04/25/20 24 04/25/2024 BASIC METAB OLIC PANEL sodium 140 mmol/ L 136-14 5 normal Not Available [address] [place], [address] 04/25/2024 06:21:43 04/25/20 24 04/25/2024 BASIC METAB OLIC PANEL potassium 3.5 mmol/ L 3.5-5. 1 normal Not Available [address] [place], [address] 04/25/2024 06:21:43 04/25/20 24 04/25/2024 BASIC METAB OLIC PANEL chloride 106 mmol/ L 98-107 normal Not Available [address] [place], [address] 04/25/2024 06:21:43 04/25/20 24 04/25/2024 BASIC METAB OLIC PANEL CO2 23.1 mmol/ L 21.0-3 2.0 normal Not Available [address] [place], [address] 04/25/2024 06:21:43 04/25/20 24 04/25/2024 BASIC METAB OLIC PANEL anion gap 10.9 mmol/ L 3-11 normal Not Available [address] [place], [address] 04/25/2024 06:21:43 04/25/20 24 04/25/2024 COMPL ETE BLOOD COUNT NO DIFF WBC 6.44 10_3/ uL 4.4-10 .8 normal Not Available [address] [place], [address] 04/25/2024 06:07:43 04/25/20 24 04/25/2024 COMPL ETE BLOOD COUNT NO DIFF RBC 4.01 10_6/ uL 3.93-5 .22 normal Not Available [address] [place], [address] 04/25/2024 06:07:43 04/25/20 24 04/25/2024 COMPL ETE BLOOD COUNT NO DIFF HGB 11.8 g/dL 11.2-1 5.7 normal Not Available [address] [place], [address] 04/25/2024 06:07:43 04/25/20 24 04/25/2024 COMPL ETE BLOOD COUNT NO DIFF HCT 35.7 % 36.0-4 6.0 low Not Available [address] [place], [address] 04/25/2024 06:07:43 04/25/20 24 04/25/2024 COMPL ETE BLOOD COUNT NO DIFF MCV 89 fL 80-95 normal Not Available Joey santos [address] [place], [address] 04/25/2024 06:07:43 04/25/20 24 04/25/2024 COMPL ETE BLOOD COUNT NO DIFF MCH 29.4 pg 27.0-3 3.0 normal Not Available [address] [place], [address] 04/25/2024 06:07:43 04/25/20 24 04/25/2024 COMPL ETE BLOOD COUNT NO DIFF MCHC 33.1 % 32.0-3 6.0 normal Not Available [address] [place], [address] 04/25/2024 06:07:43 04/25/20 24 04/25/2024 COMPL ETE BLOOD COUNT NO DIFF RDW 13.2 % 11.7-1 4.6 normal Not Available [address] [place], [address] 04/25/2024 06:07:43 04/25/20 24 04/25/2024 COMPL ETE BLOOD COUNT NO DIFF platelet count 157 10_3/ uL 130-40 0 normal Not Available [address] [place], [address] 04/25/2024 06:07:43 04/25/20 24 04/25/2024 COMPL ETE BLOOD COUNT NO DIFF MPV 9.6 fL 8.0-11 .0 normal Not Available [address] [place], [address] 04/25/2024 06:07:43 09/11/19 24 09/11/2023 XR, lumba r spine , 2 view Patien t Name: Chandrika Casanova Unit #: [id number] Loc: PC Orderi ng Provid er: Micheal Wilson DO Accoun t #: [id number] Status : REG CLI Primar y Care Provid er: Sang Abdullahi M.D. Date of Exam: 02/25 Sex: F Admiss ion Date: : 1965 Age: 57 Exam(s ) XR PAIN CLINIC LUMBAR SP 2V EXAM: XR PAIN CLINIC LUMBAR SP 2V CLINIC AL HISTOR Y: Dx: Lumbar Spondy losis. TECHNI QUE: Fluoro scopy was provid ed for the referr ing physic shawn for becca ce with perfor [facility] inject ion proced ure. COMPAR BLAS: No exams were availa ble for compar blas FINDIN GS: Please see proced ure note for detail s. Fluoro time: 42.3 second s RADIAT ION DOSE DELIVE RED: Ka,r=1 0.36 mGy Latisha parkinson By: Micheal Wilson DO CC: ------ ------ ------ ------ ------ ------ ------ ------ ------ ------ ------ ------ - Dictat ed By: Carter Swift [id number] Transc ribed By: Candice Clemons 1558 This is privil eged, confid ential inform ation intend ed only for the provid er named. Any use or distri bution by any person other than this provid er is strict ly prohib ited. If you receiv e this report in error, please notify us immedi zena at and return the origin al report to us at the addres s above. Thank- you. [email or web address] [facility] [address] [place], [address] 09/12/2023 07:12:55 09/12/19 24 09/12/2023 pain manag ement proce dure note Pain Manage ment Proced ure Note SANCHEZ Terrell NAME: EdilbertoChandrika J UNIT #: [id number] ADMITT ING PROVID ER: Micheal Wilson V DO ACCOUN T #: [id number] PRIMAR Y CARE PROVID ER: SANG ABDULLAHI MD DATE OF ADMIT: : 1965 Date of servic e: Time of Servic e: 15:52 Pain Managm ent Proced ure Note Proced ure Note Proced ure Note: Pain Managm ent Proced ure Note Proced ure Note Proced ure Note: INTRA- ARTICU LAR FACET JOINT INJECT ION Chandrikaisaac Casanova has been referr ed to the [facility] for intra- articu lar lumbar facet joint inject ion. COMMEN TS: I previo usly evalua heather her in the office . She did excell ent with her last intra- articu lar facet inject ions. She is allerg ic to Chloro hexadi ne and we will use alcoho l prep instea d. Pre-pr ocedur e pain level: 5/10 Dx: Lumbos acral spondy losis withou t myelop athdeclan terrell was interv iewed and the medica l record review ed. There were no medica l, pharma cologi c, radiog raphic or other struct ural contra indica tions to attemp ting fluoro scopic ally guided intra- ar ticula r lumbar facet joint inject ion. Risks and expect ed side effect s as well as potent ial benefi t of the proced ure were review ed and voiced concer ns addres sed. The printe d consen t form was signed and witnes sed. Standa rd time-o ut proced ure was perfor med. Patien t was placed in the prone positi on on the fluoro scopy table and automa heather blood pressu re cuff and pulse oximet er applie d. The skin entry point for approa corby the bilate ral facet joints at L4- L5 and L5-S1 was identi fied under the most advant ageous fluoro scopic view and marked . Follow ing thorou gh alcoho l prepar ation of the skin and drapin g and 1% lidoca ine infilt ration of the skin entry point and subcut aneous tissue s, a 22 gauge spinal needle was placed under fluoro scopic guidan ce into right L4-L5 facet joint. Intra- articu lar placem ent was confir med by a clear arthro gram result ing from the inject ion of 0.25ml Omnipa que 240. .5ml 1% lidoca ine and 20mg Depome drol were inject ed intra- articu larily with an initia l reprod uction of a signif icant compon ent of the usual pain. This proced ure was repeat ed to the right L5-S1 facet and the left L4-L5 and L5-S1 facet joints . Vital signs were stable throug hout the proced ure and were as record ed in the docflo wsheet by the [facility] staff. If given, dosage s of intrav enous drugs for anxiol ysis and analge collin were docume nted in OCT. Follow up plans and appoin tments were discus sed. Post proced ure instru ction was given as docume nted in [facility] docume ntatio n and having met dischbryan sancheze criter ia,was enrique lantigua from the [facility] . COMMEN TS: Post-p rocedu re pain VAS was 0/10. She will keep track of her pain level for the next 3 months . Carmina Wilson DO, MPH [facility] [place] CC: Sang Abdullahi cc: ------ ------ ------ ------ ------ ------ ------ ------ ------ ------ ------ --- Dictat ed by: CARMINA WILSON DO, V Dictat ed: Time: 1323 Date: 132 Date: Date: Transc ribed Date: Transc ribed Time: 1322 By: TIFFANY Cohn This is privil eged, confid ential inform ation, intend ed only for the provid er named. Any use or distri bution by any person other than this provid er is strict ly prohib ited. If you receiv e this report in error, please notify us immedi samly at [phone] and return the origin al report to us at the addres s above. Thank you. [facility] [address] [place], [address] 09/12/2023 17:23:26 01/23/20 24 01/23/2024 MAMMO remi bilat eral Patien t Name: Chandrika Casanova Unit #: [id number] Loc: DI Orderi ng Provid er: Tamera Colon DO Accoun t #: [id number] Status : REG CLI Primar y Care Provid er: Sang Abdullahi M.D. Date of Exam: Sex: F Admiss ion Date: : 1965 Age: 58 Exam(s ) MG MAMMO SCREEN ING EXAM: MG MAMMO SCREEN ING CLINIC AL HISTOR Y: screen ing TECHNI QUE: Bilate ral full field digita l CC and MLO mammog raphic images were obtain ed with 3D tomosy nthesi s and utiliz ing comput er aided detect ion (CAD). COMPAR BLAS: Availa ble for compar blas. FINDIN GS: Masses /Archi tectur al Distor tion: None seen. Microc alcifi cation s: No suspic ious pleomo rphic- type are seen. Skin Thicke jayashree/N ipple Retrac tion: None. IMPRES JUSTIN: 1. No signif icant interv al change with no specif ic featur es of malign meenakshi noted. 2. Unless there is more urgent need, screen ing mammog negra is recomm ended, as per [facility] guidel yesi. BI-RAD S Catego ry 1 - Negati ve Breast Densit y - Catego ry C - Hetero geneou sly dense Breast densit y catego ry C or D implie s that the patien t has dense breast tissue . Dense breast tissue is very common and is not abnorm al but dense breast tissue can make it harder to find cancer on a mammog brigitte. Also, dense breast tissue may increa se their breast cancer risk. This inform ation about the result of the mammog brigitte report was provid ed to the patien t to raise their awaren ess. Use this report when you speak with the patien t about their risks for breast cancer , which includ es their family histor y. At that time, you may recomm end for more screen ing tests (Ultra sound or MRI) as they might be useful based on their risk. A negati ve radiog raphic report should not delay biopsy if a domina nt or clinic ally suspic ious mass is presen t. Up to ten percen t of cancer s are not identi fied on mammog negra. A negati ve report may reinfo rce clinic al impres justin. Adenos is and dense breast s may obscur e an underl kirk neopla sm. False positi ve report s averag e 6 to 10%. Patien t will receiv e a letter notify ing them of these result sCordell Good d By: Tamera Colon DO CC: ------ ------ ------ ------ ------ ------ ------ ------ ------ ------ ------ ------ - Dictat ed By: Cruzito Dockery M.D. 910 09 Transc ribed By: Cruzito Dockery 910 This is privil eged, confid ential inform ation intend ed only for the provid er named. Any use or distri bution by any person other than this provid er is strict ly prohib ited. If you receiv e this report in error, please notify us immedi samly at and return the origin al report to us at the addres s above. Thank- you. [facility] [address], [place], [address] 01/23/2024 10:28:39 02/12/20 24 02/12/2024 XR, lumba r spine , 2 view Patien t Name: Chandrika Casanova Unit #: [id number] Loc: PC Orderi ng Provid er: Micheal Wilson DO Accoun t #: [id number] Status : REG CLI Primar y Care Provid er: Sang Abdullahi M.D. Date of Exam: 05/28 Sex: F Admiss ion Date: : 1965 Age: 58 Exam(s ) XR PAIN CLINIC LUMBAR SP 2V EXAM: XR PAIN CLINIC LUMBAR SP 2V CLINIC AL HISTOR Y: Lumbar Spondy losis TECHNI QUE: 2D and realti me digita l imagin g was perfor med. CONTRA ST MATERI AL: Refer to proced ure report . COMPAR BLAS: No exams were availa ble for compar blas FINDIN GS: Fluoro scopy was provid ed for Dr. Wilson during the perfor quang of a bilate ral lumbar medial branch block. Please refer to the proced ure report for comple te detail s. Ka,r=1 3.2 mGy IMPRES JUSTIN: RADIAT ION DOSE DELIVE RED: 0.0 0.0 0 Ordere d By: Micheal Wilson DO CC: ------ ------ ------ ------ ------ ------ ------ ------ ------ ------ ------ ------ - Dictat ed By: Cruzito Dockery M.D. [id number] Transc ribed By: Cruzito Dockery 1407 This is privil eged, confid ential inform ation intend ed only for the provid er named. Any use or distri bution by any person other than this provid er is strict ly prohib ited. If you receiv e this report in error, please notify us immedi ately at [phone] and return the origin al report to us at the addres s above. Thank- you. [facility] [address], [place], [address] 02/16/2024 17:00:09 02/26/20 24 02/26/2024 XR, lumba r spine Patien t Name: Chandrika Casanova Unit #: [id number] Loc: PC Orderi ng Provid er: Micheal Wilson DO Accoun t #: [id number] Status : REG CLI Primar y Care Provid er: Sang Abdullahi M.D. Date of Exam: Sex: F Admiss ion Date: : 1965 Age: 58 Exam(s ) XR PAIN CLINIC LUMBAR SP 2V EXAM: XR PAIN CLINIC LUMBAR SP 2V CLINIC AL HISTOR Y: Lumbar Spondy losis TECHNI QUE: 2D and realti me digita l imagin g was perfor med. Radiol ogist not presen t. CONTRA ST MATERI AL: None. COMPAR BLAS: No exams were availa ble for compar blas FINDIN GS: Fluoro scopy was provid ed for pain manage ment therap y. Please refer to proced ure report or detail s. Radiat ion Exposu re Index: Ka,r=1 5.85 mGy IMPRES JUSTIN: As above. RADIAT ION DOSE DELIVE RED: Ordere d By: Micheal Wilson DO CC: ------ ------ ------ ------ ------ ------ ------ ------ ------ ------ ------ ------ - Dictat ed By: Hernan Medrano M.D. 1619 161 Transc ribed By: Mitchell NOBLE,Nakia garcia 161 This is privil eged, confid ential inform ation intend ed only for the provid er named. Any use or distri bution by any person other than this provid er is strict ly prohib ited. If you receiv e this report in error, please notify us immedi ately at and return the origin al report to us at the addres s above. Thank- you. [facility] [address], [place], [address] 02/26/2024 16:52:31 04/20/20 24 04/01/2020 MAMMO remig No observ ation record ed. Not Available 04/20 00:10:34 04/20/20 24 01/11/2023 MAMMO inese jayashree No observ ation record ed. Not Available 04/20 00:10:36 04/20/20 24 12/28/2021 MAMMO , inese jayashree No observ ation record ed. Not Available 04/20 00:10:39 04/20/20 24 10/10/2018 MAMMO , remi sanchezg No observ ation record ed. Not Available 04/20 00:10:41 04/20/20 24 12/21/2020 MAMMO , remi jayashree No observ ation record ed. Not Available 04/20 00:10:42 04/20/20 24 12/22/2019 MAMMO , inese jayashree No observ ation [...] 04/20 00:12:36 04/20/20 24 05/21/2023 imagi ng/di agnos tic resul t No observ ation record ed. Not Available 04/20 00:14:53 04/21/20 24 04/21/2024 CT imagi ng repor t Sanchez t Name: Chandrika Casanova Unit #: [id number] Loc: ER Orderi ng Provid er: Markus Arriaga M.D. Accoun t #: [id number] Status : REG ER Primar y Care Provid er: Sang Abdullahi M.D. Date of Exam: Sex: F [...] st volume :100 ml Oral: None COMPAR BLAS: No exams were availa ble for compar blas FINDIN GS: CHEST: PULMON SUKHWINDER ARTERI ES: There are no intra- arteri al fillin g defect s to sugges t the presen ce of acute pulmon sukhwinder emboli . LUNGS: There is no eviden ce of pulmon sukhwinder infarc tion.N o pleura l effusi ons. [...] res. Right hip prosth esis noted. IMPRES JUSTIN: 1. No eviden ce of acute pulmon sukhwinder emboli nor pulmon sukhwinder infarc tion. 2. There are relati vely [...] facili ty are submit heather to the [facility] al Radiol ogy Data Regist ry (NRDR) [...] to clinic al indica tion); or iterat levon recons tructi on. 014: Total DLP = 0.00 mGy-cm Ordere d By: Markus Arriaga M.D. CC: ------ ------ ------ ------ ------ ------ ------ ------ ------ ------ ------ ------ ---- Dictat ed By: Hernan Medrano M.D. 1330 1330 Transc ribed By: Mitchell NOBLE,Nakia jose 1330 This is privil eged, confid ential inform [...] the addres s above. Thank- you. INTERFACE [facility] [address], [place], [address] 04/21/2024 13:34:43 04/21/2004/21/2024 x-ray imagi ng repor t Sanchez t Name: Chandrika Casanova Unit #: [id number] Loc: ER Orderi ng Provid er: Markus Arriaga M.D. Accoun t #: [id number] Status : REG ER Primar y Care Provid er: Sang Abdullahi M.D. Date of Exam: Sex: F Admiss ion Date: : 1965 Age: 58 Exam(s ) XR PORTAB LE CHEST AP POST LINE EXAM: XR PORTAB LE CHEST AP POST LINE CLINIC AL HISTOR Y: NG placem ent TECHNI QUE: 2D digita l imagin g was perfor med. COMPAR BLAS: CT CT CHEST PE ABD PELVIS W from 2023 FINDIN GS: A nasoga stric tube has been insert ed with tip in the fundus of the stomac h. The side hole may be in the distal esopha rupa appear s LUNGS: Apical scarri ng. No focal infilt rate or pulmon sukhwinder edema. No pleura l abnorm ality seen. HEART: Normal size. AORTA: Normal diamet er. BONES: Unrema rkable for age. Soft tissue s: Unrema rkable . IMPRES JUSTIN: An endotr acheal tube tip projec ts in the fundus of the stomac h. DATA REPOSI TORY: RADIAT ION DOSE DELIVE RED: Latisha d By: Markus Arriaga M.D. CC: ------ ------ ------ ------ ------ ------ ------ ------ ------ ------ ------ ------ - Dictat ed By: Carter Swift 1455 Transc ribed By: Candice Clemons 1455 This is privil eged, confid ential inform [...] the addres s above. Thank- you. INTERFACE [facility] [address], [place], [address] 04/21/2024 15:01:44 04/21/20 24 04/21/2024 x-ray imagi susi terrell Name: Chandrika Casanova Unit #: [id number] Loc: MS Latrice goldman Provid er: Markus Ariraga M.D. Accoun t #: [id number] Status : ADM IN Primar y Care [facility] er: Sang Abdullahi M.D. Date of Exam: Sex: F Admiss ion Date: : 1965 Age: 58 Exam(s ) XR ABDOME N FLAT PLATE EXAM: XR ABDOME N FLAT PLATE CLINIC AL HISTOR Y: Bowel obstru ction, eval post-g astrog raffin . TECHNI QUE: 2D digita l imagin g was perfor med. COMPAR BLAS: CR XR ABDOME N FLAT PLATE from [...] hip prosth esis incide ntally noted. IMPRES JUSTIN: Upper normal diamet er jejuna l loops [...] error, please notify us immedi samly at [phone] and return the origin al report to us at the addres s above. Thank- you. INTERFACE [address], [place], [address] 04/21/2024 18:12:08 04/22/20 24 04/22/2024 x-ray imagi ng repor t Patien t Name: Chandrika Casanova Unit #: [id number] Loc: MS Orderi ng Provid er: Anthony Harper DO Accoun t #: [id number] Status : ADM IN Primar y Care [facility] er: Sang Abdullahi M.D. Date of Exam: Sex: F Admiss ion Date: : 1965 Age: 58 Exam(s ) XR ABDOME N FLAT PLATE EXAM: XR ABDOME N FLAT PLATE CLINIC AL HISTOR Y: sbo. TECHNI QUE: 2D digita l imagin g was perfor med. COMPAR BLAS: CR XR ABDOME N FLAT PLATE from [...] bowel loops on today' s image IMPRES JUSTIN: As above. No eviden ce of small- bowel obstru ction. DATA REPOSI TORY: RADIAT ION DOSE DELIVE RED: Ordere d By: Anthony Harper DO CC: ------ ------ [...] the addres s above. Thank- you. INTERFACE [address], [place], [address] 04/22/2024 09:58:23 04/22/20 24 04/22/2024 CT, chest , w/ contr ast Patien t Name: Chandrika Casanova Unit #: [id number] Loc: Orderi ng Provid er: Darnell Barboza t #: [id number] Status : ADM IN Primar y Care Provid er: Sang Abdullahi M.D. Date of Exam: Sex: F : 1965 Age: 58 Exam(s ) a CT:CT chest PE CTA Exam(s ) CT CHEST PE CTA EXAM: CT CHEST PE CTA CLINIC AL HISTOR Y: acute chest pain/t achyca rdia, new SVT. TECHNI QUE: Imagin g Protoc ol: CT angiog negra of the chest was perfor med using pulmon sukhwinder embolu s protoc ol. Multi planar recons tructi ons were perfor med. CONTRA ST MATERI AL: Intrav enous: Omnipa que [address] volume : 100 cc COMPAR BLAS: CT CT CHEST PE ABD PELVIS W from 2023 CR XR ABDOME N FLAT PLATE from 2023 FINDIN GS: CHEST: PULMON SUKHWINDER ARTERI ES: There are no intral uminal fillin g defect s to sugges t acute pulmon sukhwinder emboli . LUNGS: There is some increa [...] signif icant osseou s lesion s.. IMPRES JUSTIN: 1. No eviden ce of acute pulmon sukhwinder emboli . No eviden ce of pulmon sukhwinder infarc tion.N o eviden ce of aortic [...] facili ty are submit heather to the [facility] al Radiol ogy Data Regist ry (NRDR) [...] to clinic al indica tion); or iterat levon recons tructi on. 013: Total DLP = 0.00 mGy-cm Ordere d By: Darnell Barboza CC: ------ ------ ------ ------ ------ ------ ------ ------ ------ ------ ------ ------ ---- Dictat ed By: Hernan Medrano M.D. 1222 1222 Transc ribed By: Mitchell NOBLE,Nakia garcia 122 This is privil eged, confid ential inform ation intend ed only for the provid er named. Any use or distri bution by any person other than this [facility] er is strict ly prohib ited. If you receiv e this report in error, please notify us immedi samly at and return the origin al report to us at the addres s above. Thank- you. [facility] [address], [place], [address] 05/13/2024 14:15:46 04/23/20 24 04/23/2024 ultra sound imagi ng repor t Sanchez t Name: Chandrika Casanova Unit #: [id number] Loc: MS Orderjenny ng Provid er: Tylor Kim Accoun t #: [id number] Status : ADM IN Primar y Care Provid er: Sang Abdullahi M.D. Date of Exam: Sex: F Admiss ion Date: : 1965 Age: 58 Exam(s ) US ABDOME N LIMITE D EXAM: US ABDOME N LIMITE D CLINIC AL HISTOR Y: RUQ abdomi nal pain with colic with N/V TECHNI QUE: Ultras ound abdome n perfor med using standa rd protoc ol. COMPAR BLAS: US US PELVIS TRANSV AGINAL from 2022 [...] No cortic al cysts eviden t. IMPRES JUSTIN: 1. No eviden ce of cholel ithias is nor dilata tion of the biliar y tree. 2. No other signif icant ultras ound findin gs in the right upper quadra nt. 3. There is no ascite s. DATA REPOSI TORY: Ordere d By: Tylor Kim CC: ------ ------ ------ ------ ------ ------ ------ ------ ------ ------ ------ ------ - Dictat ed By: Hernan Medrano M.D. 942 Transc ribed By: Mitchell NOBLE,How jose 942 This is privil eged, confid ential inform ation intend ed only for the provid er named. Any use or distri bution by any person other than this provid er is strict ly prohib ited. If you receiv e this report in error, please notify us immsanazi samisaac at [phone] and return the origin al report to us at the addres s above. Thank- you. INTERFACE [place] [facility] [address] [place], [address] 04/23/2024 16:52:46 04/23/20 24 04/23/2024 x-ray imagi ng repor t Sanchez t Name: Chandrika Casanova Unit #: [id number] Loc: Orderjenny goldman Provid er: Karina Barajas M.D. Accoun t #: [id number] Status : ADM IN Primar y Care [facility] er: Sang Abdullahi M.D. Date of Exam: Sex: F Admiss ion Date: : 1965 Age: 58 Exam(s ) XR ABD FLAT UPRIGH T PA CHEST EXAM: XR ABD FLAT UPRIGH T PA CHEST CLINIC AL HISTOR Y: abd pain. TECHNI QUE: 2D digita l imagin g was perfor med. COMPAR BLAS: CT CT CHEST PE ABD PELVIS W [...] also a right hip prosth esis. IMPRES JUSTIN: No bowel obstru ction Subtle suspic ion [...] Dictat ed By: Hernan Medrano M.D. 1130 1130 Transc ribed By: Mitchell NOBLE,Nakia jose 1130 This is privil eged, confid ential inform ation intend ed only for the provid er named. Any use or distri bution by any person other than this provid er is strict ly prohib ited. If you receiv e this report in error, please notify us immedjenny vargasisaac at [phone] and return the origin al report to us at the addres s above. Thank- you. INTERFACE [facility] [address] , [place], [address] 04/23/2024 16:52:58 04/23/20 24 04/23/2024 CT, abdom en + pelvi s, w/ contr ast Patien t Name: Chandrika Casanova Unit #: [id number] Loc: Chrisjenny ng Provid er: Karina Barajas M.D. Accoun t #: [id number] Status : ADM IN Primar y Care Provid er: Sang Abdullahi M.D. Date of Exam: Sex: F [...] Omnipa que-35 0 100cc Oral: None COMPAR BLAS: No exams were availa ble for compar blas FINDIN GS: VISUAL IZED LUNG BASES: No [...] signif icant osseou s lesion s. IMPRES JUSTIN: 1. Compar ed to the prior CT [...] hip prosth esis Images review ed at [facility] MONITO R with on-antony l surgeo n follow ing comple tion of the study [...] to clinic al indica tion); or iterat levon recons tructi on. 016: Total DLP = 0.00 mGy-cm Ordere d By: Karina Barajas M.D. CC: ------ ------ ------ ------ ------ ------ ------ ------ ------ ------ ------ ------ ---- Dictat ed By: Hernan Medrano M.D. [id number] Transc ribed By: Mitchell NOBLE,Nakia jose 1423 This is privil eged, confid ential inform ation intend ed only for the provid er named. Any use or distri bution by any person other than this provid er is strict ly prohib ited. If you receiv e this report in error, please notify us immedi samly at [phone] and return the origin al report to us at the addres s above. Thank- you. [facility] [address], [place], [address] 07/16/2024 13:30:19 06/17/20 24 06/17/2024 XR, lumba r spine Patien t Name: Chandrika Casanova Unit #: [id number] Loc: PC Orderi ng Provid er: Micheal Wilson V DO Accoun t #: [id number] Status : REG CLI Primar y Care Provid er: Sang Abdullahi M.D. Date of Exam: Sex: F Admiss ion Date: : 1965 Age: 58 Exam(s ) XR PAIN CLINIC LUMBAR SP 2V EXAM: XR PAIN CLINIC LUMBAR SP 2V CLINIC AL HISTOR Y: DX: Lumbar Spondy losis. TECHNI QUE: Fluoro scopy was provid ed for the referr ing physic shawn for guidan ce with perfor [facility] inject ion proced ure. COMPAR BLAS: No exams were availa ble for compar blas FINDIN GS: Please see proced ure note for detail s. Fluoro time: 49.7 second s RADIAT ION DOSE DELIVE RED: Ka,r=1 3.11 mGy Chrise micheal By: Micheal Wilson DO CC: ------ ------ ------ ------ ------ ------ ------ ------ ------ ------ ------ ------ - Dictat ed By: Carter Swift 153 153 Transc ribed By: Candice Clemons 1531 This is privil eged, confid ential inform ation intend ed only for the provid er named. Any use or distri bution by any person other than this provid er is strict ly prohib ited. If you receiv e this report in error, please notify us immedi zena at and return the origin al report to us at the addres s above. Thank- you. [facility] [address] , [place], [address] 07/16/2024 13:22:26 Result Notes None recorded. Problems Name Problem SNOMED Code Status Onset Date Resolution Date Notes Provider Name and Address Organization Details Recorded Time Migraine 86662400 Active [address], [place], [address] , [facility] 4 19:18:06 [facility] hyperten justin 64192768 Active [address], [place], [address] , [facility] 4 19:17:21 Hyperlip idemia 05882496 Active 2006 high-dos e statin MD [address], [place], [address] , [facility] 4 19:17:44 Type 2 diabetes mellitus without complica tion 800706794 Completed 200709/03/[address], [facility] [address] , [facility] 4 19:20:10 Screenin g for cancer Completed 201402/01/2015 Problem Code: Z12.10; Problem Code Type: ICD-10; Not Available [facility] 3 04:53:29 Adult health examinat ion Completed 201407/16/[address], [facility] [address] , [facility] 4 13:31:46 Gastroes ophageal reflux disease without esophagi tis 714534629 Active [address], [facility] [address] , [facility] 4 19:17:33 Low back pain 181459617 Active 2014 status post micro discecto my L5-S1 [address], [facility] [address] , [facility] 4 19:20:53 Cramp in lower limb associat ed with sleep 01954257631 4104 Active [address], [facility] [address] , [facility] 4 19:17:13 Snoring 40086825 Completed 201505/02/2016 04/04/20 16 - Comments only - Sang Abdullahi MD - With some awakenin g gasping, and fatigue, suspicio us for sleep apnea, referral to the sleep clinic. Problem Code: R06.83; Problem Code Type: ICD-10; Not Available [facility] 3 04:53:30 Obstruct levon sleep apnea syndrome 32470181 Active 2015 mild, mouth guard SANG DAREN, MD [address], [place], [address] , [place] [facility] 4 19:21:15 Neutrope magdalena 626990001 Active 2016 chronic, mild- WBC 3.[address], [place], [address] , [place] [facility] 4 19:19:09 Acute sinusiti s 97101176 Completed 201710/10/2017 Problem Code: J01.90; Problem Code Type: ICD-10; Not Available [facility] 3 04:53:30 Diarrhea 37008199 Completed 201804/16/2019 04/02/20 19 - Comments only - Sang Abdullahi MD - if persists , stool tests. Problem Code: R19.7; Problem Code Type: ICD-10; Not Available [facility] 3 04:53:30 Disorder of skin appendag e 886556383 Completed 201804/16/2019 04/02/20 19 - Comments only - Sang Abdullahi MD - right upper thigh, hot pack, reassura nce Problem Code: L73.8; Problem Code Type: ICD-10; Not Available [facility] 3 04:53:30 Acute bronchit is 24007041 Completed 201908/31/2019 08/17/19 20 - Comments only - Sang Abdullahi MD - Treat with doxycycl ine 100 mg twice daily for 7 days. Call if not michaela serrano Problem Code: J20.9; Problem Code Type: ICD-10; Not Available [facility] 3 04:53:30 Acute upper respirat ory infectio n 78430382 Completed 201911/02/2019 10/19/19 20 - Comments only - Sang Abdullahi MD - no fever, minimal cough, no covid 19 risks or exposure . Persiste nt sore throat but no fever, no GERD, no post nasal drip. Observat ion for now. Problem Code: J06.9; Problem Code Type: ICD-10; Not Available [facility] 3 04:53:31 Insomnia 594595696 Active [address], [place], [address] , [facility] 4 19:17:52 Pain in right hip joint 58138679054 9102 Active [address], [place], [address] , [facility] 4 19:18:35 Screenin g for malignan t neoplasm of breast Completed 202009/03/2023 02/03/20 21 - Comments only - Sang Abdullahi MD - recent mammogra m showed dense breasts with recommen dation to do USG, will order. Problem Code: Z12.39; Problem Code Type: ICD-10; MD [address], [place], [address] , [facility] 4 19:18:25 Chronic rhinitis 51046853 Active [address], [place], [address] , [facility] 4 19:17:07 Fatigue 81601906 Completed 202202/04/2023 Problem Code: R53.83; Problem Code Type: ICD-10; Not Available [facility] 3 04:53:31 Fatigue 13074821 Completed 202203/06/2023 02/21/20 23 - Comments only - Sang Abdullahi MD - Reassuri ng labs includin g CBC, TSH-R, CMP. Does have known mild sleep apnea, has not had sleep study with her oral device, will send back to sleep cilnic to consider that- could be due to boredome at work and back pain. Problem Code: R53.83; Problem Code Type: ICD-10; Not Available [facility] 3 04:53:31 Palpitat ions 51122647 Completed 202206/10/2023 Problem Code: R00.2; Problem Code Type: ICD-10; Not Available [facility] 4 05:36:13 Otalgia of right ear 8317317317 Active 2022 SANG ABDULLAHI MD [address], [place], [address] , [place] [facility] 4 19:18:51 Abdomina l pain 36294535 Completed 202005/01/2023 11/04/19 21 - Comments only - Sang Abdullahi MD - vague symptoms , normal [...] R10.9; Problem Code Type: ICD-10; Not Available [facility] 3 04:53:32 Constipa tion 60487121 Completed 202001/19/2022 Problem Code: K59.09; Problem Code Type: ICD-10; Not Available [facility] 3 04:53:33 Pain in right foot 44971285174 9107 Completed 201604/02/2019 Problem Code: M79.671; Problem Code Type: ICD-10; Not Available [facility] 3 04:53:33 Candidia sis of skin 85603916 Completed 201804/02/2019 Problem Code: B37.2; Problem Code Type: ICD-10; Not Available [facility] 3 04:53:33 Left lower quadrant pain 510529949 Completed 201704/01/2020 Problem Code: R10.32; Problem Code Type: ICD-10; Not Available [facility] 3 04:53:34 Hyperten sive disorder 18673094 Completed 200605/01/2023 Not Available [facility] 3 04:53:34 Hand pain 47370137 Completed 201804/01/2020 Problem Code: M79.643; Problem Code Type: ICD-10; Not Available [facility] 3 04:53:34 Thyroid function tests abnormal 805081898 Completed 202202/20/2023 Problem Code: R94.6; Problem Code Type: ICD-10; Not Available [facility] 3 04:53:34 Dyspnea 998840845 Completed 201908/31/2019 Problem Code: R06.02; Problem Code Type: ICD-10; Not Available [facility] 3 04:53:34 Hearing loss 78731492 Completed 201504/04/2016 Problem Code: H91.90; Problem Code Type: ICD-10; Not Available [facility] 3 04:53:35 Abdomina l distensi on, gaseous 502744624 Completed 202008/07/2021 Problem Code: R14.0; Problem Code Type: ICD-10; Not Available [facility] 3 04:53:35 Gastroes ophageal reflux disease 498271144 Completed Not Available [facility] 3 04:53:35 Cough 11362444 Completed 202206/24/2023 06/10/20 23 - Comments only - Sang Abdullahi MD - URI, negative flu and covid, symptoma tic treatmen t. Problem Code: R05.8; Problem Code Type: ICD-10; Not Available [facility] 4 05:36:10 Bilatera l hearing loss 75641452 Active [address], [place], [address] , [facility]. 4 19:16:59 Otalgia of right ear 5352391643 Completed 201506/10/2023 Problem Code: H92.01; Problem Code Type: ICD-10; MD [address], [place], [address] , [facility]. 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 Procedures Surgical History None recorded. Imaging Results Imaging Date Name Status LastModified by Organiz ation Details LastModified Time 09/11/2023 XR, lumbar spine, 2 view completed [email or web address] [address] [place], [address] 09/12/2023 07:12:55 09/12/2023 pain management procedure note completed [address] [place], [address] 09/12/2023 17:23:26 01/23/2024 MAMMO, screening, bilateral completed [address] [place], [address] 01/23/2024 10:28:39 02/12/2024 XR, lumbar spine, 2 view completed [address] [place], [address] 02/16/2024 17:00:09 02/26/2024 XR, lumbar spine completed [place] [address] [facility] [place], [address] 02/26/2024 16:52:31 04/01/2020 MAMMO, screening completed Information not available 04/20/2024 00:10:34 01/11/2023 MAMMO, screening completed Information not available 04/20/2024 00:10:36 12/28/2021 MAMMO, screening completed Information not available 04/20/2024 00:10:39 10/10/2018 MAMMO, screening completed Information not available 04/20/2024 00:10:41 12/21/2020 MAMMO, screening completed Information not available 04/20/2024 00:10:42 12/22/2019 MAMMO, screening completed Information not available 04/20/2024 00:10:43 07/26/2020 imaging/diagnos tic result completed Information not available 04/20/2024 00:12:13 05/08/2023 imaging/diagnos tic result completed Information not available 04/20/2024 00:12:14 11/07/2020 imaging/diagnos tic result completed Information not available 04/20/2024 00:12:16 06/22/2019 imaging/diagnos tic result completed Information not available 04/20/2024 00:12:17 03/09/2021 US, breast completed Information no t available 04/20/2024 00:12:18 03/09/2021 US, breast completed Information no t available 04/20/2024 00:12:19 05/24/2020 imaging/diagnos tic result completed Information not available 04/20/2024 00:12:21 06/22/2019 imaging/diagnos tic result completed Information not available 04/20/2024 00:12:22 06/22/2019 imaging/diagnos tic result completed Information not available 04/20/2024 00:12:23 07/18/2022 XR, lumbar spine completed Information not available 04/20/2024 00:12:24 08/18/2021 NM, bone scan completed Information not available 04/20/2024 00:12:26 11/08/2022 imaging/diagnos tic result completed Information not available 04/20/2024 00:12:27 06/22/2019 imaging/diagnos tic result completed Information not available 04/20/2024 00:12:28 02/16/2020 fluoroscopy guided joint injection (PROC) completed Information not available 04/20/2024 00:12:29 11/05/2022 imaging/diagnos tic result completed Information not available 04/20/2024 00:12:30 02/22/2023 imaging/diagnos tic result completed Information not available 04/20/2024 00:12:31 08/29/2020 imaging/diagnos tic result completed Information not available 04/20/2024 00:12:32 08/29/2020 imaging/diagnos tic result completed Information not available 04/20/2024 00:12:33 03/21/2022 imaging/diagnos tic result completed Information not available 04/20/2024 00:12:35 07/20/2021 XR, hip completed Information no t available 04/20/2024 00:12:36 05/21/2023 imaging/diagnos tic result completed Information not available 04/20/2024 00:14:53 04/21/2024 CT imaging report completed INTERFACE [address] [place], [address] 04/21/2024 13:34:43 04/21/2024 x-ray imaging report completed INTERFACE [address] [place], [address] 04/21/2024 15:01:44 04/21/2024 x-ray imaging report completed INTERFACE [address] [place], [address] 04/21/2024 18:12:08 04/22/2024 x-ray imaging report completed [address] [place], [address] 04/22/2024 09:58:23 04/22/2024 CT, chest, w/ contrast completed [address] [place], [address] 05/13/2024 14:15:46 04/23/2024 ultrasound imaging report completed INTERFACE [address] [place], [address] 04/23/2024 16:52:46 04/23/2024 x-ray imaging report completed INTERFACE [address] [place], [address] 04/23/2024 16:52:58 04/23/2024 CT, abdomen + pelvis, w/ contrast completed [email or web address] [place] [address] [place], [address] 07/16/2024 13:30:19 06/17/2024 XR, lumbar spine completed [email or web address] [place], [address] 07/16/2024 13:22:26 Procedure Notes None recorded. Medical Equipment None Reported. Allergies Allergen ID Allergen Name Allergen Category Reaction Reaction Severity Criticality Documentation Date Start Date Code Code System Note Provider Name and Address Organization Details Recorded Time 30393 Bactrim medicatio n rash mild Not available 06/14/20232005 03600 9 RxNorm RASH Not Available [facility] 3 16:30:06 61750 Keflex medicatio n rash mild Not available 06/14/20232005 06485 7 RxNorm RASH Not Available [facility] 3 16:30:07 77509 prednison e medicatio n other mild Not available 06/14/20232005 8640 RxNorm BLURR ED VISIO N Aller gyRea ction : 'BLUR RED VISIO N'; Not Available [facility] 3 16:30:07 73005 adhesive tape environme nt,medica tion rash moderate Not available 06/14/20232005 Skin Rash Aller gyRea ction : 'Skin Rash' ; Not Available [facility] 3 16:30:08 Medications Name Sig Start Date [...] mg tablet 1 tab daily Fill at [facility] only 12/25 completed Not Available Not Available [...] 2013 active Not Available Not Available Not Avgino king black cohosh 07/21 completed Not Available Not Available Not Available calcium carbonate -vitamin D3 2013 active Not Available Not Available Not Dara king Mirena 08/02 completed Not Available Not Available [...] DX: E11.9 04/25 completed per Yeny at [facility] she believes is covered Not Available Not [...] e 205.5 mcg (0.15 %) nasal spray Wilcox 2 spray into both nostrils once a [...] mass index (BMI) Body weight Body temperature Respiratory rate Heart rate Systolic blood pressure Diastolic blood pressure Provider Name and Address Organization Details Last Updated DateTime 4 170.69 cm 28 kg/m2 23837.6 3 g 97.7 [degF] 16 /min 88 /min 132 mm[Hg] 84 mm[Hg] MANJULA BUSTILLO LPN [facility]. 4 08:44:43 Date Recorded Body height Body mass index (BMI) Body weight Body temperature Respiratory rate Heart rate Systolic blood pressure Diastolic blood pressure Provider Name and Address Organization Details Last Updated DateTime 4 170.69 cm 28.5 kg/m2 54377.4 g 97.9 [degF] 16 /min 72 /min 130 mm[Hg] 74 mm[Hg] MANJULA BUSTILLO LPN [facility] 4 09:55:12 Date Recorded Body height Body mass index (BMI) Body weight Body temperature Oxygen saturation Oxygen saturation in Arterial blood by Pulse oximetry Heart rate Respiratory rate Systolic blood pressure Diastolic blood pressure Provider Name and Address Organization Details Last Updated DateTime 4 170.69 cm 28.2 kg/m2 36665.2 2 g 97.7 [degF] 96 % 96 % 70 /min 16 /min 122 mm[Hg] 74 mm[Hg] MANJULA BUSTILLO LPN [facility] 4 08:13:23 Date Recorded Body height Body mass index (BMI) Body weight Body temperature Oxygen saturation Oxygen saturation in Arterial blood by Pulse oximetry Respiratory rate Heart rate Systolic blood pressure Diastolic blood pressure Provider Name and Address Organization Details Last Updated DateTime 4 170.69 cm 27.6 kg/m2 20204.8 5 g 97.7 [degF] 96 % 96 % 16 /min 88 /min 128 mm[Hg] 68 mm[Hg] MANJULA BUSTILLO LPN [facility] 4 14:10:40 Date Recorded Body height Body mass index (BMI) Body weight Body temperature Oxygen saturation Oxygen saturation in Arterial blood by Pulse oximetry Respiratory rate Heart rate Systolic blood pressure Diastolic blood pressure Provider Name and Address Organization Details Last Updated DateTime 4 170.69 cm 27.9 kg/m2 88660.0 3 g 98 [degF] 95 % 95 % 18 /min 84 /min 116 mm[Hg] 64 mm[Hg] MANJULA BUSTILLO LPN [facility] 4 07:58:27 Social History Question Answer Notes LastModified by Organizat ion Details LastModified Time Tobacco Smoking Status Never Smoker MANJULA BUSTILLO LPN [facility] 09/06/2023 08:02:06 Would You Say That, In [...] Recorded Time Tdap 8 completed Not Available [facility] 06/14/2023 05:35:00 Td(adult) unspecified formulation 5 completed Not Available [facility] 06/14/2023 05:35:00 Influenza, split virus, quadrivalent, PF 2 completed Not Available [facility] 06/14/2023 05:35:00 zoster recombinant 9 completed Not Available [facility] 06/14/2023 05:35:00 zoster recombinant 8 completed Not Available [facility] 06/14/2023 05:35:00 zoster recombinant 8 completed Not Available [facility] 06/14/2023 05:35:00 COVID-19, mRNA, LNP-S, PF, 100 mcg/0.5mL dose or 50 mcg/0.25mL dose 1 completed Not Available [facility] 06/14/2023 05:35:01 COVID-19, mRNA, LNP-S, PF, 100 mcg/0.5mL dose or 50 mcg/0.25mL dose 1 completed Not Available [facility] 06/14/2023 05:35:01 SARS-COV-2 (COVID-19) vaccine, UNSPECIFIED 1 completed Not Available [facility] 06/14/2023 05:35:01 SARS-COV-2 (COVID-19) vaccine, UNSPECIFIED 2 completed Not Available [facility] 06/14/2023 05:35:01 Pneumococcal conjugate PCV20, polysaccharide VMC122 conjugate, adjuvant, PF 3 completed Not Available [facility] 06/14/2023 05:35:01 COVID-19, mRNA, LNP-S, bivalent, PF, 30 mcg/0.3 mL dose 3 completed Not Available [facility] 06/14/2023 05:35:01 pneumococcal polysaccharide PPV23 6 completed Not Available [facility] 06/14/2023 05:35:01 influenza, unspecified formulation 1 completed Not Available [facility] 06/14/2023 05:35:01 influenza, unspecified formulation 0 completed Not Available [facility] 06/14/2023 05:35:01 influenza, unspecified formulation 4 completed Not Available [facility] 06/14/2023 05:35:01 influenza, unspecified formulation 7 completed Not Available [facility] 06/14/2023 05:35:02 influenza, unspecified formulation 5 completed Not Available [facility] 06/14/2023 05:35:02 influenza, unspecified formulation 8 completed Not Available [facility] 06/14/2023 05:35:02 Tdap 4 completed DELMA OCONNOR, [facility] 07/17/2024 08:14:43 COVID-19, mRNA, LNP-S, PF, shahab-sucrose, 30 mcg/0.3 mL 3 completed Not Available [facility] 08/16/2023 05:31:43 SARS-COV-2 (COVID-19) vaccine, UNSPECIFIED 4 completed DELMA OCONNOR, [facility] 05/13/2024 14:16:09 Past Encounters Encounter ID Performer Location Encounter Start Date Encounter Closed Date Diagnosis/Indication Diagnosis SNOMED-CT Code Diagnosis ICD10 Code [id number] [address] [facility] [address] [place] [address] 07/16/2023 11:31:06 07/16/2023 11:39:47 Gastroesophageal reflux disease without esophagitis 691884641 K21.9 Hyperlipidemia 29321417 E78.5 Essential hypertension 98946891 I10 Type 2 iram betes mellitus without complication 727105870 E11.9 [id number] SANG ABDULLAHI MD [facility] [address] [place] [address] 09/06/2023 08:31:46 09/06/2023 09:16:44 Latent autoimmune diabetes mellitus in adult 755450436 E13.9 Migraine 16786962 G43.90 9 Overweight 767815803 E66 .3 Periodic l imb movement disorder 510886538 G47.61 [id number] SANG ABDULLAHI MD [facility] [address] [place] [address] 12/16/2023 09:43:55 12/16/2023 10:59:00 Latent autoimmune diabetes mellitus in adult 376983574 E13.9 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 2243598585 51751 G56.01 Overweight 100149216 E66 .3 Low back pain 734469969 M54.50 [id number] MANJULA BUSTILLO LPN [facility] [address] [place] [address] 03/18/2024 07:57:23 03/18/2024 09:06:06 Adult health examination 822075697 Z00.00 Latent aut oimmune diabetes mellitus in adult 014544561 E13.9 Essential hypertension 27454635 I10 Periodic l imb movement disorder 639530978 G47.61 Migraine 90531323 G43.90 9 Hyperlipidemia 21067426 E78.5 Atrophic vaginitis 25943 000 N95.2 Low back pain 853931582 M54.50 [id number] SANG ABDULLAHI MD [facility] [address] [place] [address] 05/13/2024 14:00:41 05/13/2024 14:33:21 History of small bowel obstruction 2540634527 29149341 Z87.19 Anterior a bdominal wall mass 747402640 R19.09 Latent aut oimmune diabetes mellitus in adult 900798378 E13.9 Health Concerns Section Related Observation LastModified by Organization Detai ls LastModified Time None Recorded Concern Status LastModified by Organization Details LastModified Time None Recorded Advance Directives Directive None Recorded Payers Encounter Date Sequence Insurance Name Policy Number Policy Hinson Covered Member ID Hinson Member ID Guarantor Name 09/06/2023 1 [facility] [id number] [employer] [id number] 1 Chandrika Casanova 12/16/2023 1 [employer] [facility] [id number] [employer] [id number] 1 Chandrika Casanova 03/18/2024 1 [employer] [id number] [employer] [id number] 1 Chandrika Casanova 05/13/2024 1 [employer] [id number] [employer] Edilberto [id number] 1 Chandrika Casanova Notes Date Note Type Note Provider Name and Address Organization Details Recorded Time 09/06/2023 text/html Here for follow up of multiple problems as noted below: She is having more headaches, she does not know if it's from the invokana. Trying to stay healthy, going to [place] for vacation. Sleep apnea- she had a sleep titration study with her oral appliance, could not be adjusted adequately to eliminate apneas. Met with Haley Patel, continues to decline CPAP. Referral back to dentist has been made. She has follow up next week to see if the dentist can adjust it at all.She also had periodic limb movement disorder noted, ferritin level was checked and was only 27. Suggestion was to start on iron. Diabetes mellitus; autoimmune; on insulin A1C came down to 7.3%, was up to 8.6% in June with the following plan:She was intolerant to byetta and ozempic, even low dose ozempic with too much nausea.Could consider trulicity in future.She started on INVOKANA 100 mg daily. (can increase to 300 mg dose if needed)She has started wearing a Dexcom CGMShe cut back the levemir to 50 units. CGM was viewed today.In target range- {{ 62#}}% (goal greater than 70%)High-above 180- {{ 31#}}% (goal less than 25%)Very high-above 250- {{ 6#}}% (goal less than 5%)Low-below 70 {{ 1#}}% (goal less than 4%)Very low-below 54 {{ <1#}}%- (goal less than 1%)Average glucose {{ 164#}}GMI {{ 7.2#}}%Variabilit y {{ 35.7#}}% (goal less than 36%) HTN- SANG ABDULLAHI MD [address], [place], [address], [place] [facility] 09/06/2023 09:39:47 12/16/2023 text/html Here for follow up of multiple problems as noted below, and new problem with hand. c/o right hand goes numb, when she wakes up from sleeping. If she open and closes hand feeling returns.No weakness, no symptoms other than first thing in the morning, never on the left always the right side. latent autoimmune diabetes mellitus in adultAt last visit, A1C had improved significantly to 7.4% with addition of INVOKANA. Even better today at 6.6%.Plan was to change humalog to fiasp insulin if affordable, and to check with [facility] on costs of tresiba and tujeo, could consider changing levemir to longer acting. She tells me that insurance will not cover any of these changes.She tends to spike after meals, but then sugars come down- so can not add more pre meal insulin or would get low... Goes up above 200 for a few hours.She is still walking. Rides her bike, now she reads while she bikes, hated in the past but now enjoys it. migraineNot a typical side effect of INVOKANA.Start riboflavin (vitamin B2) 400 mg tablet 1 tablet every day, B2 caused stomach ache, headaches resolved. overweight - not losing despite more exercise. Drinks mostly water, and unsweetened ice tea. No artificial sweetener. Snacks on apples, sometimes a handful of cheetos. Eats lots of greens.periodic limb movement disorderFerritin level 27- per sleep clinician, she was to start iron, can try taking qod. On 09/11 she had intra-articular lumbar facet joint injection.Now she is having sciatica again, worse if she twists, bilateral. MD [address], [place], [address], [place] [facility]. 12/16/2023 15:25:08 03/18/2024 text/html Here for Annual Exam.Interval history form was reviewed, including comprehensive ROS form.ROS negative throughout with the exception as noted below: Lab review.Patient saw Ortho in [facility] for sharath hand numbness. A referral was done to neurology w/ recommendation for nerve conduction study and emg.ROS- Denies Chest pain, KIMBLE or visual issues. SOB with stairs.Left shoulder aches at times, wonders if it spasms. Not exertional. Has had massages in the past, but none since August. DM- FS A1C today is 7.1%, was 6.6% in December. Riding her inside bike, as buggy and wet outside. One vaginal yeast infection in January after swimming a lot, resolved with OTC treatment. Levemir is down to 50 units. CGM is not sharing to us, and she can not recall her password today to set that up.HTN- does not check at home, good in the office.GERD- no meds, only occasional symptoms with spicy foods.hyperlipidemia - on statininsomnia- attributes that to stress. Gets up and reads for an hour.low back pain- sees Dr. Wilson- ablation scheduled for mid April- sometimes this helps. Recent ablations were helpful.migraine- occasionally, indomethacin relieves themCOPDPLMD- ferritin was low in , she is taking that qoday, and thinks legs are better, though not less tired. MANJULA BUSTILLO LPN null, [place] - [facility]. 05/13/2024 14:38:37 05/13/2024 text/html Patient went to [facility] care 04/21-04/25 d/t abd pain and bloating. She was advised to be evaluated by [facility]. She was admitted for SBO and [...] soft foods due to the recent SBO. SANG ABDULLAHI MD [address], [place], [address], [facility]. 05/13/2024 14:39:04 OBGyn Episode No OBEpisode recorded.
--- OUTSIDE RECORDS SUMMARY | 2024-07-17 08:22 | XMS_ITS | Encounter Summary ---
Author Organization [facility] Address [address] [place] [address] Care Team Providers Care Warehouse Operator Name Role Phone Unavailable Primary Care Provider Unavailabl e Encounter Details Date Type Department Care Team (Late st Contact Info) Description 04/27/2005 Results Only [facility] [address] [place] [address] Charley Sinclair, [facility] [address] [place] [address] [place] [address] Social History Tobacco Use Types Packs/Day Years [...] Priority Date/Time Associated Diagnosis Comments CYTOPATHOLOGY Routine 04/27/2005 0:00 EDT documented in this encounter Results * CYTOPATHOLOGY (04/27/2005 0:00 EDT) Pathology Report: CYTOPATHOLOGY REPORT Reports generated via electronic interface contain original data; however they are lacking the format of the original report. Caution should be taken when reading/interpreti ng unformatted reports. Name: ? CHANDRIKA MERAZ ? Accession #: ? [id number] : ? 1965 (Age: 39) ??F ?Collect Date: ? 04/27/2005 Location: ? [facility] ? Receive Date: ? 04/30/2005 Provider: ?CHARLEY SINCLAIR FOOD COUNTER ATTENDANT Copy to: ? Specimen/Source: ?ThinPrep Pap Test, Cervix/Endocervix, processed on [employer] ThinPrep Imaging System, with manual evaluation Last Menstrual Period: ? 04/01/05 Other: ? HPVA - HPV testing requested if ASC-US on the current ThinPrep Pap test. ? SPECIMEN ADEQUACY ? Satisfactory for Evaluation - transformation zone component present GENERAL CATEGORIZATION ? Negative for Intraepithelial Lesion or Malignancy ? Document reviewed and electronically signed by: ? CHRISTOPHER Segura(ASCP) ? Report Date: ??05/04/2005 13:37 End of Report KYLER CRUZ 04/27/2005 04/30/2005 us Charley Sinclair FOOD COUNTER ATTENDANT PATHOLOGY ORDERABLES Final R esult [facility] [address] [place] [address] documented in this encounter Visit Diagnoses Not on filedocumented in this encounter
--- OUTSIDE RECORDS SUMMARY | 2024-07-17 08:22 | XMS_ITS | Encounter Summary ---
Author Organization [facility] Address [address] [place] [address] Care Team Providers Care Casting Supervisor Name Role Phone Unavailable Primary Care Provider Unavailabl e Encounter Details Date Type Department Care Team (Late st Contact Info) Description 11/08/2005 Before PRISM Converted Visit (Maple) [facility] - Maple conversion [address] [place] [address] Ramesh Almanza MD Social History Tobacco Use Types Packs/Day Years Used Date Smoking Tobacco: Never Assessed Comments Unknown Sex and Gender Information Value Date Recorded Sex Assigned at Not on file Legal Sex Female 18:19 EST Gender Identity Not on file Sexual Orientation Not on file documented as of this encounter Progress Notes * Ramesh Almanza MD - 07/29/2009 1540 EST DIVISION OF GASTROENTEROLOGY PROGRESS/FOLLOWUP NOTE - 11/08/2005 November 08, 2005 Darnell Banda MD [address] [place] [address] Banda, Thank you for sending Chandrika Casanova back to me. As you know I saw Chandrika on several occasions in 2001. At that time she had a full evaluation for her refractory reflux disease including a radionucleotide gastric emptying scan that was done in May of 2002 and revealed mildly delayed gastric emptying. In the interim since I saw Chandrika last, zhen had a 24 hour ambulatory pH study, which I had recommended previously if she was considering anything other than medical therapy for her reflux. Interestingly, she had a high degree of symptom correlation with reflux episodes but a perfectly normal amount of reflux with a low DeMeester score. Hernan Bush also has evaluated her in some detailand we spent most of our 30 minute visit today (all of which consisted of counseling, discussion and decision making)in trying to put together her data past and present and reviewing the pros and cons of medical versus surgical therapy for reflux. I appreciate your consideration of endoscopic antireflux therapy and the possibility of Ms. Casanova seeing Dr. Enciso. Although I have encouraged her to meet with Dr. Enciso if she would find that beneficial, I have been honest with her about the data that have been gleaned thus far regarding endoscopic antireflux techniques of various types. Control data are few, and what data exist are notterribly compelling. At this point, outside of experimental trials, I can not recommend endoscopic treatment when it is compared to the gold standard of minimally invasive antireflux surgery. Since Ms. Casanova is interested in learning more about minimally invasive antireflux surgery, I asked that she meet with Dr. Jesus Juarez, a fellowship trained laparoscopic surgeon today. She was added onto Dr. Astorga since she had driven a distance to get here. His note will appear under separate cover. Will proceed, based on Dr. Rubio followup plan for Ms. Casanova. If I can be of any assistance during her evaluation, please dont hesitate to contact me at anytime by calling and having me paged. Sincerely, Signed by Ramesh Almanza MD, FACG 11/09/2005 11:27 Rj Almanza MD, [id number] L Moses, MD, FACG Ramesh Almanza MD, [facility] [phone] - Ramesh Almanza MD, FACG A - cheyanne Job ID: [id number] Document ID: [id number] cc: Darnell Banda MD documented in this encounter Plan of Treatment Not on file documented as of this encounter Visit Diagnoses Not on filedocumented in this encounter
--- OUTSIDE RECORDS SUMMARY | 2024-07-17 08:22 | XMS_ITS | Encounter Summary ---
Author Organization [facility] Address [address] [place] [address] Care Team Providers Care Surgical Scheduler Name Role Phone Unavailable Primary Care Provider Unavailabl e Encounter Details Date Type Department Care Team (Late st Contact Info) Description 05/31/2008 Before PRISM Converted Visit (Maple) [facility] - Maple conversion [address] [place] [address] Luci Lobo NP Social History Tobacco Use Types Packs/Day Years [...] Procedure Name Priority Date/Time Associated Diagnosis Comments HPV DETECTION, HIGH RISK TYPES Routine 05/31/2008 9:20 EDT documented in this encounter Results * HUMAN PAPILLOMA VIRUS DNA TEST (05/31/2008 9:20 EDT) Specimen Description Cervix, ThinPrep vial [facility] Result Negative for HPV types 16, 18, 31, 33, 35, 39, 45, 51, 52, 56, 58, 59, and 68. [facility] Report Status Final 06/10/2008 [facility] 05/31/2008 9:20 EDT 06/07/2008 10:27 EST us Luci Lobo NP MICROBIOLOGY - GENERAL ORDERA BLES Final Result [facility] [address] [place] [address] documented in this encounter Visit Diagnoses Not on filedocumented in this encounter
--- OUTSIDE RECORDS SUMMARY | 2024-07-17 08:22 | XMS_ITS | Encounter Summary ---
Author Organization [facility] Address [address] [place] [address] Care Team Providers Care Auto Dealership Porter Name Role Phone Unavailable Primary Care Provider Unavailabl e Encounter Details Date Type Department Care Team (Late st Contact Info) Description 06/21/2010 Results Only [facility] - [facility] [address] [place] [address] Luci Lobo, FLOR Social History Tobacco Use [...] Procedure Name Priority Date/Time Associated Diagnosis Comments SURGICAL PATHOLOGY Routine 06/21/2010 0:00 EST documented in this encounter Results * SURGICAL PATHOLOGY (06/21/2010 0:00 EST) Pathology Report: SURGICAL PATHOLOGY REPORT ? Reports generated via electronic interface contain original data; ? however they are lacking the format of the original report. ? Caution should be taken when reading/interpreti ng unformatted reports. ? Name: ? MARIYA, CHANDRIKA ? Accession #: ? [id number] ? : ? 1965 (Age: 44) ??F ? Collect Date: ? 06/21/2010 ? Location: ? [facility] ? Receive Date: ? 06/22/2010 ? Provider: LUCI M CARLYN LEAD ELECTRICAL CONTROLS ENGINEER ? Copy to: SANG MERCEDES MD ? Final Pathologic Diagnosis: ? Endometrium, biopsy: ? - Benign proliferative endometrium. ? Document reviewed and electronically signed by: ? JAMES MELODY JAMSHID MD ? Report ??Date: 06/26/2010 15:39 ? By the signature above, the attending physician certifies that he/she has ? personally conducted a gross and/or microscopic examination of the described ? specimens and rendered or confirmed the above diagnosis. ? Specimen(s) Received: ? EMB ? Clinical History: ? Dysmenorrhea; inhomogeneity of endometrium; LMP: 06/13/2010 ? Gross Description: ? Received in formalin labelled Mariya, Chandrika and cervix is approximately 6 cc of red-brown tissue fragments admixed with clotted blood and blood tinged ?? mucus. ??The specimen is submitted entirely as (A1) through (A3) following ? filtration. ??(MAILE Poesijie)/ljn ? End of Report ? [facility] 06/21/2010 06/22/2010 9:0 8 EST us Luci Lobo LEAD ELECTRICAL CONTROLS ENGINEER PATHOLOGY ORDERABLES Final Re sult [facility] [address] [place] [address] documented in this encounter Visit Diagnoses Not on filedocumented in this encounter
--- OUTSIDE RECORDS SUMMARY | 2024-07-17 08:22 | XMS_ITS | Encounter Summary ---
Author Organization [facility] Address [address] [place] [address] Care Team Providers Care Mutual Fund Manager Name Role Phone Genie Abdullahi MD Primary Care Provider [phone] Encounter Details Date Type Department Care Team (Late st Contact Info) Description 10/24/2020 Lab Requisition [facility] Pathology & Laboratory Medicine - [facility] [address] [place] [address] Charley Sinclair, [facility] [address] [place] [address] [place] [address] Encounter for other general examination Social History Tobacco Use Types Packs/Day Years [...] Procedure Name Priority Date/Time Associated Diagnosis Comments PAP TEST Today 10/21/2020 9:12 EDT Encounter for other general examination HPV DNA DETECTION WITH GENOTYPING, PCR Today 10/21/2020 9:12 EDT Encounter for other general examination documented in this encounter Results * HUMAN PAPILLOMAVIRUS (HPV) DETECTION-HIGH RISK TYPES (10/21/2020 9:12 EDT) HPV other High Risk types, PCR Negative Negative 11/01/2020 15:24 EDT [facility] Comment:No E6 or E7 mRNA is detected from HPV types 16,18,31,33,35,39,45,51,52,56,58,59,66, and 68 by social media campaign manager mediated amplification. Papanicolaou smear specimen (specimen) CERVIX UTERI STRUCTURE / Unknown 10/21/2020 9:12 EDT 10/31/2020 15:23 EDT Charley Sinclair INKJET OPERATOR MICROBIOLOGY - GENERAL ORDER NAOMY Final Result [facility] [address] [place] [address] * PAP TEST (10/21/2020 9:12 EDT) Specimens A. Cervix and/or Endocervix , ThinPrep Imaging System with Manual Evaluation 11/01/2020 15:24 EDT [facility] Specimen Adequacy Satisfactory for Evaluation - transformation zone component present 11/01/2020 15:24 EDT [facility] General Categorization Negative for intraepithelial lesion or malignancy 11/01/2020 15:24 EDT [facility] Attestation . 11/01/2020 15:24 T [facility] at 1524 Clinical History See below 11/02/19 15:24 T [facility] HPV The result for the Human Papillomavirus (HPV) Detection-High Risk Types is Negative. No E6 or E7 mRNA is detected from HPV types 16,18,31,33,35,39 ,45,51,52,56,58,5 9,66, and 68 by social media campaign manager mediated amplification.Deepika ting was performed on specimen [id number] and was resulted on 11/01/2020 1523 EDT by ASHLEY, LAB INSTRUMENT RESULTS IN 11/01/2020 15:24 EDT [facility] Performing Lab [facility] 11/01/2020 15:24 EDT [facility] Scanned Images 11/01/2020 15:24 EDT [facility] Papanicolaou smear specimen (specimen) CERVIX UTERI STRUCTURE / Unknown 10/21/2020 9:12 EDT 10/24/2020 11:06 EDT Charley Sinclair INKJET OPERATOR PATHOLOGY ORDERABLES Final R esult [facility] [address] [place] [address] documented in this encounter Visit Diagnoses Diagnosis Encounter for other general examination documented in this encounter Care Teams Mutual Fund Manager Relationship Specialty Start Date End Date Genie Abdullahi MD [address] [place] [address] [phone] PCP - General 06/23/10 documented as of this encounter
--- OUTSIDE RECORDS SUMMARY | 2024-07-17 08:22 | XMS_ITS | Encounter Summary ---
Author Organization [facility] Address [address] [place] [address] Care Team Providers Care Bulk Tank Car Unloader Name Role Phone Unavailable Primary Care Provider Unavailabl e Encounter Details Date Type Department Care Team (Late st Contact Info) Description 05/19/2007 Results Only [facility] - Maple conversion [address] [place] [address] Luci Lobo, FLOR Social History Tobacco Use [...] Priority Date/Time Associated Diagnosis Comments CYTOPATHOLOGY Routine 05/19/2007 0:00 EDT documented in this encounter Results * CYTOPATHOLOGY (05/19/2007 0:00 EDT) Pathology Report: CYTOPATHOLOGY REPORT Reports generated via electronic interface contain original data; however they are lacking the format of the original report. Caution should be taken when reading/interpreti ng unformatted reports. Name: ? CHANDRIKA MERAZ ? Accession #: ? [id number] : ? 1965 (Age: 41) ??F ?Collect Date: ? 05/19/2007 Location: ? [facility] ? Receive Date: ? 05/20/2007 Provider: ?LUCI LOBO EXTRUSION DIE COORDINATOR Copy to: ? Specimen/Source: ?ThinPrep Pap Test, Cervix/Endocervix, processed on Consumr ThinPrep Imaging System, with manual evaluation Last Menstrual Period: ? 05/12/07 Other: ? HPVA - HPV testing requested if ASC-US on the current ThinPrep Pap test. ? SPECIMEN ADEQUACY ? Satisfactory for Evaluation - transformation zone component present GENERAL CATEGORIZATION ? Negative for Intraepithelial Lesion or Malignancy ? Document reviewed and electronically signed by: ? Audra Polk, ROSEANN(ASCP) ? Report Date: ??05/27/2007 12:06 End of Report [facility] 05/19/2007 05/20/2007 us Luci Lobo NP PATHOLOGY ORDERABLES Final Re sult [facility] [address] [place] [address] documented in this encounter Visit Diagnoses Not on filedocumented in this encounter
--- OUTSIDE RECORDS SUMMARY | 2024-07-17 08:22 | XMS_ITS | Encounter Summary ---
Author Organization [facility] Address [address] [place] [address] Care Team Providers Care Comber Tender Name Role Phone Unavailable Primary Care Provider Unavailabl e Encounter Details Date Type Department Care Team (Late st Contact Info) Description 04/26/2004 Results Only [facility] - Maple conversion [address] [place] [address] Luci Lobo, FLOR Social History Tobacco Use [...] Priority Date/Time Associated Diagnosis Comments CYTOPATHOLOGY Routine 04/26/2004 0:00 EDT documented in this encounter Results * CYTOPATHOLOGY (04/26/2004 0:00 EDT) Pathology Report: CYTOPATHOLOGY REPORT Reports generated via electronic interface contain original data; however they are lacking the format of the original report. Caution should be taken when reading/interpreti ng unformatted reports. Name: ? CHANDRIKA MERAZ ? Accession #: ? [id number] : ? 1965 (Age: 38) ??F ?Collect Date: ? 04/26/2004 Location: ? [facility] ? Receive Date: ? 04/27/2004 Provider: ?LUCI LOBO STEM PROCESSING MACHINE OPERATOR Copy to: ? Specimen/Source: ?ThinPrep Pap Test, Cervix/Endocervix Last Menstrual Period: ? 04/01/04 ? SPECIMEN ADEQUACY ? Satisfactory for Evaluation - transformation zone component present GENERAL CATEGORIZATION ? Negative for Intraepithelial Lesion or Malignancy ? Document reviewed and electronically signed by: ? Subha Shoemaker, [place](ASCP) ? Report Date: ??05/02/2004 15:11 End of Report [facility] 04/26/2004 04/27/2004 us Luci Lobo NP PATHOLOGY ORDERABLES Final Re sult [facility] [address] [place] [address] documented in this encounter Visit Diagnoses Not on filedocumented in this encounter
--- OUTSIDE RECORDS SUMMARY | 2024-07-17 08:22 | XMS_ITS | Encounter Summary ---
Author Organization [facility] Address [address] [place] [address] Care Team Providers Care Tassel Making Machine Operator Name Role Phone Unavailable Primary Care Provider Unavailabl e Encounter Details Date Type Department Care Team (Late st Contact Info) Description 05/21/2002 Results Only [facility] - Maple conversion [address] [place] [address] Luci Lobo, FLOR Social History Tobacco Use [...] Priority Date/Time Associated Diagnosis Comments CYTOPATHOLOGY Routine 05/21/2002 0:00 EDT documented in this encounter Results * CYTOPATHOLOGY (05/21/2002 0:00 EDT) Pathology Report: CYTOPATHOLOGY REPORT Reports generated via electronic interface contain original data; however they are lacking the format of the original report. Caution should be taken when reading/interpreti ng unformatted reports. Name: ? CHANDRIKA MERAZ ? Accession #: ? [id number] : ? 1965 (Age: 36) ??F ?Collect Date: ? 05/21/2002 Location: ? [facility] ? Receive Date: ? 05/22/2002 Provider: ?LUCI LOBO CONVENTIONAL MORTGAGE UNDERWRITER Copy to: ? Specimen/Source: ?ThinPrep Pap Test, Cervix/Endocervix Last Menstrual Period: ? 05/06/02 ? SPECIMEN ADEQUACY ? Satisfactory for Evaluation - transformation zone component present GENERAL CATEGORIZATION ? Negative for Intraepithelial Lesion or Malignancy ? Document reviewed and electronically signed by: ? Nicko Guzmán, CT(ASCP) ? Report Date: ??05/27/2002 09:07 End of Report [facility] 05/21/2002 05/22/2002 us Luci Lboo NP PATHOLOGY ORDERABLES Final Re sult [facility] [address] [place] [address] documented in this encounter Visit Diagnoses Not on filedocumented in this encounter
--- OUTSIDE RECORDS SUMMARY | 2024-07-17 08:22 | XMS_ITS | Encounter Summary ---
Author Organization [facility] Address [address] [place] [address] Care Team Providers Care Firefighting Equipment Specialist Name Role Phone Genie Abdullahi MD Primary Care Provider [phone] Encounter Details Date Type Department Care Team (Late st Contact Info) Description 07/18/2011 Results Only [facility] - [address] [address] Luci Lobo, FLOR Social History Tobacco [...] Name Priority Date/Time Associated Diagnosis Comments PAP TEST- RESULT ONLY Routine 07/18/2011 0:00 EST documented in this encounter Results * PAP TEST- RESULT ONLY (07/18/2011 0:00 EST) Pathology Report: CYTOPATHOLOGY REPORT Reports generated via electronic interface contain original data; however they are lacking the format of the original report. Caution should be taken when reading/interpreti ng unformatted reports. Name: ? CHANDRIKA MERAZ ? Accession #: ? [id number] ? : ? 1965 (Age: 45) ??F ?Collect Date: ? 07/18/2011 ? Location: ? [facility] ? Receive Date: ? 07/19/2011 ? Provider: LUCI LOBO WHOLESALE DIAMOND BROKER Copy to: ? Final Report SPECIMEN ADEQUACY ? Satisfactory for Evaluation - transformation zone component present GENERAL CATEGORIZATION ? Negative for Intraepithelial Lesion or Malignancy ?? Last Menstural Period: 04/05/2011 Hormonal/Contracep tive status: Tubal ligation: Bilateral Intrauterine device: mirena Specimen/Source: ??Pap Test, Cervix/Endocervix, ThinPrep Imaging System with manual evaluation Document reviewed and electronically signed by: ? ROSEANN Espinoza(ASCP) ? Report ??Date: 07/23/2011 13:45 HPV with Pap Test ? Date Ordered: ? 07/23/2011 ? Status: ?? Signed Out ?Date Complete: ? 07/26/2011 ? By: ??System Interface ? Date Reported: ? 07/26/2011 ? Interpretation RESULT: Negative for HPV types 16, 18, 31, 33, 35, 39, 45, 51, 52, 56, 58, 59, and 68. Comments Document reviewed and electronically signed by: ? System Interface ? Report date: 07/26/2011 By the signature above, the attending physician certifies that he/she has personally conducted a gross and/or microscopic examination of the described specimens and rendered or confirmed the above diagnosis. End of Report [facility] 07/18/2011 07/19/2011 us Luci Lobo WHOLESALE DIAMOND BROKER PATHOLOGY ORDERABLES Final Re sult [facility] [address] [place] [address] documented in this encounter Visit Diagnoses Not on filedocumented in this encounter Care Teams Firefighting Equipment Specialist Relationship Specialty Start Date End Date Genie Abdullahi MD [address] [place] [address] [phone] PCP - General 06/23/10 documented as of this encounter
--- OUTSIDE RECORDS SUMMARY | 2024-07-17 08:22 | XMS_ITS | Encounter Summary ---
Author Organization [facility] Address [address] [place] [address] Care Team Providers Care Joint Filler Name Role Phone Genie Mercedes MD Primary Care Provider [phone] Encounter Details Date Type Department Care Team (Late st Contact Info) Description 04/12/2014 Results Only [facility] Services - [address] [address] Luci Lobo, FLOR Social History [...] Diagnosis Comments PAP TEST- RESULT ONLY Routine 04/12/2014 0:00 EDT documented in this encounter Results * PAP TEST- RESULT ONLY (04/12/2014 0:00 EDT) Pathology Report: CYTOPATHOLOGY REPORT Reports generated via electronic interface contain original data; however they are lacking the format of the original report. Caution should be taken when reading/interpreti ng unformatted reports. Name: ? CHANDRIKA MERAZ ? Accession #: ? [id number] ? : ? 1965 (Age: 48) ??F ?Collect Date: ? 04/12/2014 ? Location: ? [facility] ? Receive Date: ? 04/13/2014 ? Provider: LUCI LOBO INTELLIGENCE INTERN Copy to: GENIE MERCEDES MD ? Final Report SPECIMEN ADEQUACY ? Satisfactory for Evaluation - transformation zone component present GENERAL CATEGORIZATION ? Negative for Intraepithelial Lesion or Malignancy ?? Last Menstrual Period: 2010 Hormonal/Contracep tive status: Intrauterine device: Mirena Specimen/Source: ??Pap Test, Cervix/Endocervix, ThinPrep Imaging System with manual evaluation Document reviewed and electronically signed by: ? ROSEANN Espinoza(ASCP) ? Report ??Date: 04/19/2014 09:27 HPV with Pap Test ? Date Ordered: ? 04/19/2014 ? Status: ?? Signed Out ?Date Complete: ? 04/20/2014 ? By: ??System Interface ? Date Reported: ? 04/20/2014 ? Interpretation RESULT: Negative for HPV. No E6 or E7 mRNA is detected from HPV types 16,18,31,33,35, 39,45,51,52,56,58, 59,66, and 68 by gallery director mediated amplification. Comments Document reviewed and electronically signed by: ? System Interface ? Report date: 04/20/2014 By the signature above, the attending physician certifies that he/she has personally conducted a gross and/or microscopic examination of the described specimens and rendered or confirmed the above diagnosis. End of Report [facility] 04/12/2014 04/13/2014 us Luci Lobo INTELLIGENCE INTERN PATHOLOGY ORDERABLES Final Re sult [facility] [address] [place] [address] documented in this encounter Visit Diagnoses Not on filedocumented in this encounter Care Teams Joint Filler Relationship Specialty Start Date End Date Genie Mercedes MD [address] [place] [address] [phone] PCP - General 06/23/10 documented as of this encounter
--- OUTSIDE RECORDS SUMMARY | 2024-07-17 08:22 | XMS_ITS | Encounter Summary ---
Author Organization [facility] Address [address] [place] [address] Care Team Providers Care Biomass Power Plant Superintendent Name Role Phone Genie Mercedes MD Primary Care Provider [phone] Encounter Details Date Type Department Care Team (Late st Contact Info) Description 06/18/2017 Results Only [facility] [phone] Charley Sicnlair, [facility] [address] [place] [address] [place] [address] Social History Tobacco Use Types [...] Diagnosis Comments PAP TEST- RESULT ONLY Routine 06/18/2017 0:00 EST documented in this encounter Results * PAP TEST- RESULT ONLY (06/18/2017 0:00 EST) Pathology Report: CYTOPATHOLOGY REPORT Reports generated via electronic interface contain original data; however they are lacking the format of the original report. Caution should be taken when reading/interpreti ng unformatted reports. Name: ? CHANDRIKA MERAZ ? Accession #: ? [id number] ? : ? 1965 (Age: 51) ??F ?Collect Date: ? 06/18/2017 ? Location: ? [facility] ? Receive Date: ? 06/19/2017 ? Provider: [facility] Copy to: GENIE MERCEDES MD ? Final Report SPECIMEN ADEQUACY ? Satisfactory for Evaluation - transformation zone component present GENERAL CATEGORIZATION ? Negative for Intraepithelial Lesion or Malignancy ?? Last Menstrual Period: 2015 Specimen/Source: ??Pap Test, Cervix, ThinPrep Imaging System with manual evaluation Document reviewed and electronically signed by: ? Audra Polk, [place](ASCP) ? Report ??Date: 07/02/2017 12:57 HPV with Pap Test ? Date Ordered: ? 07/02/2017 ? Status: ?? Signed Out ?Date Complete: ? 07/03/2017 ? By: ??System Interface ? Date Reported: ? 07/03/2017 ? Interpretation RESULT: Negative for HPV. No E6 or E7 mRNA is detected from HPV types 16,18,31,33,35, 39,45,51,52,56,58, 59,66, and 68 by curve cleaner mediated amplification. Comments Document reviewed and electronically signed by: ? System Interface ? Report date: 07/03/2017 By the signature above, the attending physician certifies that he/she has personally conducted a gross and/or microscopic examination of the described specimens and rendered or confirmed the above diagnosis. End of Report [facility] 06/18/2017 06/19/2017 us Charley Sinclair FISHING FLOATS ASSEMBLER PATHOLOGY ORDERABLES Final R esult [facility] [address] [place] [address] documented in this encounter Visit Diagnoses Not on filedocumented in this encounter Care Teams Biomass Power Plant Superintendent Relationship Specialty Start Date End Date Genie Mercedes MD [address] [place] [phone] PCP - General 06/23/10 documented as of this encounter
--- OUTSIDE RECORDS SUMMARY | 2024-07-17 08:22 | XMS_ITS | Encounter Summary ---
Author Organization [facility] Address [address] [place] [address] Care Team Providers Care Demonstrator Sewing Techniques Name Role Phone Genie Abdullahi MD Primary Care Provider [phone] Encounter Details Date Type Department Care Team (Latest Contact Info) Description 04/19/2014 8:23 EDT - 04/19/2014 23:59 EDT Hospital Encounter [facility] [address] [place] [address] Unknown, Provider, MD Discharge Disposition: Home or Self Care Social History Tobacco Use Types Packs/Day Years Used Date Smoking Tobacco: Never Assessed Comments Unknown Sex and Gender Information Value Date Recorded Sex Assigned at Not on file Legal Sex Female 18:19 EST Gender Identity Not on file Sexual Orientation Not on file documented as of this encounter Discharge Disposition Disposition Code Departure Means Destination Home or Self Alf documented in this encounter Plan of Treatment Not on file documented as of this encounter Visit Diagnoses Not on filedocumented in this encounter Care Teams Demonstrator Sewing Techniques Relationship Specialty Start Date End Date Genie Abdullahi MD [address] [place] [phone] PCP - General 06/23/10 documented as of this encounter
--- OUTSIDE RECORDS SUMMARY | 2024-07-17 08:22 | XMS_ITS | Encounter Summary ---
Author Organization [facility] Address [address] [place] [address] Care Team Providers Care Diplomatic Interpreter/Translator Name Role Phone Unavailable Primary Care Provider Unavailabl e Encounter Details Date Type Department Care Team (Late st Contact Info) Description 05/15/2006 Results Only [facility] [address] [place] [address] Luci Lobo, FLOR Social History Tobacco Use [...] Priority Date/Time Associated Diagnosis Comments CYTOPATHOLOGY Routine 05/15/2006 0:00 EDT documented in this encounter Results * CYTOPATHOLOGY (05/15/2006 0:00 EDT) Pathology Report: CYTOPATHOLOGY REPORT Reports generated via electronic interface contain original data; however they are lacking the format of the original report. Caution should be taken when reading/interpreti ng unformatted reports. Name: ? CHANDRIKA MERAZ ? Accession #: ? [id number] : ? 1965 (Age: 40) ??F ?Collect Date: ? 05/15/2006 Location: ? [facility] ? Receive Date: ? 05/16/2006 Provider: ?LUCI LOBO SENIOR COST ANALYST Copy to: ? Specimen/Source: ?ThinPrep Pap Test, Cervix/Endocervix, processed on [employer] ThinPrep Imaging System, with manual evaluation Last Menstrual Period: ? 04/29/06 Other: ? HPVA - HPV testing requested if ASC-US on the current ThinPrep Pap test. ? SPECIMEN ADEQUACY ? Satisfactory for Evaluation - transformation zone component present GENERAL CATEGORIZATION ? Negative for Intraepithelial Lesion or Malignancy ? Document reviewed and electronically signed by: ? Esther Umaña, SCT(ASCP) ? Report Date: ??05/20/2006 12:51 End of Report [facility] 05/15/2006 05/16/2006 us Luci Lobo NP PATHOLOGY ORDERABLES Final Re sult [facility] [address] [place] [address] documented in this encounter Visit Diagnoses Not on filedocumented in this encounter
--- OUTSIDE RECORDS SUMMARY | 2024-07-17 08:22 | XMS_ITS | Clinical Summary ---
Author Organization [facility] Address [address] [place] [address] Care Team Providers Care Exhibition Designer Name Role Phone Genie Abdullahi MD Primary Care Provider [phone] Social History Tobacco Use Types Packs/Day Years Used Date Smoking Tobacco: Never Assessed Comments Unknown Sex and Gender Information Value Date Recorded Sex Assigned at Not on file Legal Sex Female 18:19 EST Gender Identity Not on file Sexual Orientation Not on file Plan of Treatment Health Maintenance Due Date Last Done Comments Hepatitis C Screen 1965 COVID-19 Vaccine (2023-25 season) 2024 RSV Immunization ( o r 60+ Years) (1 - 1-dose 75+ series) 11/05/2038 Care Teams Exhibition Designer Relationship Specialty Start Date End Date Genie Abdullahi MD [address] [place] [phone] PCP - General 06/23/10
--- OUTSIDE RECORDS SUMMARY | 2024-07-17 08:23 | XMS_ITS | Encounter Summary ---
[place] [address] Care Team Providers Care Typing Element Machine Operator Name Role Phone Genie Abdullahi MD Primary Care Provider Encounter Details Date Type Department Care Team (Latest Contact Info) Description 05/01/2024 Travel Social History Tobacco Use Types Packs/Day Years Used Date Smoking Tobacco: Never Smokeless Tobacco: Never Alcohol Use Standard Drinks/Week Comments Not Currently 0 (1 standard drink = 0.6 oz pur e alcohol) once a year wine coolers Sex and Gender Information Value Date Recorded Sex Assigned at Not on file Gender Identity Not on file Sexual Orientation Not on file documented as of this encounter Plan of Treatment Upcoming Encounters Date Type Department Care Team (Latest Contact Info) Description 08/25/2024 8:10 AM EST Hospital Encounter [place] [address] Marvin Ash MD [facility] [place] [address] 08/25/2024 8:10 AM EST - 08/25/2024 9:30 AM EST Surgery [place] [address] Marvin Ash MD [facility] [place] [address] NEUROPLASTY &/OR TRANSPOSITION, ULNAR NERVE AT ELBOW (WRVU 7.26) 08/25/2024 9:40 AM EST Office Visit Dermatology at [address] [place] [address] Gary Combs MD [facility] [place] [address] 09/10/2024 10:30 AM EST Office [place] [address] Tess Florez PA [facility] [address] Scheduled Procedures Name Priority Associated Diagnoses Date/Ti me NEUROPLASTY &/OR TRANSPOSITION, ULNAR NERVE AT ELBOW (WRVU 7.26) Carpal tunnel syndrome on right Cubital tunnel syndrome on right 08/25/2024 8:10 AM EST ENDOSCOPY WRIST W/ RELEASE TRANSVERSE CARPAL LIGAMENT (WRVU 6.39) Carpal tunnel syndrome on right Cubital tunnel syndrome on right 08/25/2024 8:10 AM EST documented as of this encounter Visit Diagnoses Not on filedocumented in this encounter Care Teams Typing Element Machine Operator Relationship Specialty Start Date End Date Genie Abdullahi MD [address] [place] [address] PCP - General 02/23/11 documented as of this encounter
--- OUTSIDE RECORDS SUMMARY | 2024-07-17 08:23 | XMS_ITS | Encounter Summary ---
[place] [address] Care Team Providers Care Manager Competitive Intelligence Name Role Phone Genie Abdullahi MD Primary Care Provider [phone] Reason for Visit * Diagnostic Test (Routine) - Closed Specialty Diagnoses / Procedures Referred By Gina terrell Referred To Contact Neurology Diagnoses Bilateral hand numbness Violet Oliva PA [facility] [address] [place] [address] [facility] [address] [place] [address] Referral ID Status Reason Start Date Expiration Date V isits Requested Visits Authorized [id number] Closed Test Only 03/12/2024 03/12/2025 1 1 Encounter Details Date Type Department Care Team (Latest Contact Info) Description 05/19/2024 1:00 PM EDT [place] [address] Jose Mcdermott MD [facility] [place] [address] Carpal tunnel syndrome, bilateral Social History Tobacco Use Types Packs/Day Years [...] as of this encounter Progress Notes * Haley Bang MD - 05/19/2024 1:00 PM EDT [facility] NEUROPHYSIOLOGY LABORATORY NERVE CONDUCTION AND ELECTROMYOGRAPHY EVALUATION - 05/19/24 BRIEF HISTORY: Chandrika Casanova is a 58 y.o. female referred for electrodiagnostic evaluation of carpal tunnel syndrome by: Violet Oliva PA [facility] [place] [address] Type of Referral: Test only Anticoagulation/antiplatelet medications: None History: Chandrika has a history significant for DM, HTN, GARRY. She had several months of numbness in her fingers. She has to shake out her hands to alleviate the symptoms. She sometimes has weakness. Shedoes not have any neck pain. She does not have any radicular symptoms. She does not have any symptoms in her legs. BRIEF EXAMINATION: General evaluation is unrevealing for atrophy, skeletal or foot deformity. Motor testing of distal and proximal muscles was unrevealing for focal weakness. Focussed dermatomal testing was unrevealing. DTRs symmetric. STUDY QUESTION: The edx studies were performed to evaluate for median mononeuropathy, cervical radiculopathy. NCS/EMG: Sensory nerve conduction studies: Right median orthodromic response palm to wrist had normal amplitude and mild slowing Right median antidromic response wrist to digit II had normal amplitude and mild slowing Left median orthodromic response palm to wrist had normal amplitude and mild slowing Left median antidromic response wrist to digit II was normal Right ulnar antidromic response wrist to digit V was normal Left ulnar antidromic response wrist to digit V was normal Motor nerve conduction studies: Right median response at APB had prolonged distal latency 4.8 ms with normal amplitude and no slowing Left median response at APB had normal distal latency, amplitude and velocity Right ulnar response at ADM had normal amplitude and mild slowing across the elbow Left ulnar response at ADM was normal with no slowing across the elbow F-wave distal latencies were normal right and left median and right and left ulnar nerves. EMG needle studies: Normal studies of right deltoid, biceps, triceps, FDI and APB. 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 There is also mild slowing across the right elbow with normal right ulnar sensory study, which may be consistent with mild right ulnar neuropathy at the elbow of unclear clinical significance. There is no evidence of right brachial plexopathy or cervical radiculopathy. Clinical correlation is advised. EMG/NCS report will be scanned into EDH. Haley Bang MD Clinical Neurophysiology Fellow With Jose Mcdermott MD Neuromuscular Attending I have seen the patient and reviewed the fellow's above history and I agree with the details as written. The assessment and plan were formulated in discussion with me and I agree with them as documented. Jose Mcdermott MD documented in this encounter Plan of Treatment Upcoming Encounters Date Type Department Care Team (Latest Contact Info) Description 08/25/2024 8:10 AM EST Hospital Encounter [place] [address] Marvin Ash MD [facility] [address] [place] [address] 08/25/2024 8:10 AM EST - 08/25/2024 9:30 AM EST Surgery [place] [address] Marvin Ash MD [facility] [place] [address] NEUROPLASTY &/OR TRANSPOSITION, ULNAR NERVE AT ELBOW (WRVU 7.26) 08/25/2024 9:40 AM EST Office Visit Dermatology at [facility] [address] [place] [address] Gary Combs MD [facility] [address] [place] [address] 09/10/2024 10:30 AM EST Office [place] [address] Tess Florez PA [facility] [place] [address] Scheduled Procedures Name Priority Associated Diagnoses Date/Ti me NEUROPLASTY &/OR TRANSPOSITION, ULNAR NERVE AT ELBOW (WRVU 7.26) Carpal tunnel syndrome on right Cubital tunnel syndrome on right 08/25/2024 8:10 AM EST ENDOSCOPY WRIST W/ RELEASE TRANSVERSE CARPAL LIGAMENT (WRVU 6.39) Carpal tunnel syndrome on right Cubital tunnel syndrome on right 08/25/2024 8:10 AM EST Scheduled Referrals Name Type Priority Associated Diagnoses Orde r Schedule Referral to Neurology Outpatient Referral Routine Bilateral hand numbness Ordered: 03/12/2024 documented as of this encounter Visit Diagnoses Diagnosis Carpal tunnel syndrome, bilateral Carpal tunnel syndrome Carpal tunnel syndrome on right Carpal tunnel syndrome Cubital tunnel syndrome on right Lesion of ulnar nerve documented in this encounter Care Teams Manager Competitive Intelligence Relationship Specialty Start Date End Date Genie Abdullahi MD [facility] [address] [place] [address] PCP - General 02/23/11 documented as of this encounter
--- OUTSIDE RECORDS SUMMARY | 2024-07-17 08:23 | XMS_ITS | Encounter Summary ---
Author Organization [facility] Address [facility] [place] [address] Care Team Providers Care Environmental Sampling Technician Name Role Phone Genie Abdullahi MD Primary Care Provider [phone] Reason for Visit * Reason Comments Wrist Pain NXR // RIGHT CTS AND POSSIBLE RIGHT CUBITAL TUNNEL // SURGICAL DISCUSSION Encounter Details Date Type Department Care Team (Late st Contact Info) Description 06/10/2024 9:15 AM EST Office [place] [address] Ninoska Ash MD [facility] [place] [address] Cubital tunnel syndrome on right (Primary Dx); Carpal tunnel syndrome on right Social History Tobacco Use Types Packs/Day Years [...] on file documented as of this encounter Last Filed Vital Signs Vital Sign Reading Time Taken Comments Blood Pressure - - Pulse - - Temperature - - Respiratory Rate - - Oxygen Saturation - - Inhaled Oxygen Concentration - - Weight 82.6 kg (182 lb) 06/10/2024 9:05 AM EST Height 170.2 cm (5' 7) 06/10/2024 9:05 AM EST Body Mass Index 28.51 06/10/2024 9:05 AM EST documented in this encounter Progress Notes * Sis Reyna CCMA - 06/10/2024 9:15 AM EST Pre op teaching done for endoscopic carpal tunnel release and cubital tunnel release. Emphasis placed on post op hand elevation with hand above heart, fingers above palm, palm above wrist and wrist above elbow. Patient also advised to use ice for swelling management. Discussed importance of flexing fingers against original dressing. Take dressing off on day 3 and fully flex and extend fingers. Place Band-Aid over suture, no ointments. Reviewed suggestions for taking post op pain medication. Patient was advised not to take blood thinners or NSAIDS 7 days prior to surgery. Tylenol is okay to use. Questions solicited and answered to patient satisfaction. Written material provided. Patient knows to call with any additional questions or concerns. * Ninoska Ash MD - 06/10/2024 9:15 AM EST I examined Chandrika Casanova and I agree with Dr. Ziegler's note. She has EMG proven right carpal and cubital tunnel syndrome and is symptomatic in all digits of her right hand. She has a positive Tinel test over the ulnar nerve at the right ulnar groove, positive right scratch collapse test over the ulnar nerve, and a positive cubital tunnel flexion test on the right. She additionally has classic signs and symptoms of carpal tunnel syndrome on the right. We discussed consideration of corticosteroid injection for carpal tunnel syndrome but she prefers to treat this surgically. She would also like to manage her ulnar neuropathy surgically with cubital tunnel decompression. She is aware that her carpal tunnel decompression will likely be done endoscopically although it is possible that it an open procedure may need to be done for her right carpal tunnel syndrome. She is aware that with such surgery there are potential risks which include but are not limited to infection, neurovascular or tendon injury, incomplete or no relief of neurogenic symptoms, pillar pain, pond tender weakness, and recurrence of carpal tunnel syndrome. At the same setting she wo uld like to proceed with right cubital tunnel decompression. She is aware that I would attempt to do this is an in situ decompression although an open procedure may need to be done. She is aware thatwith the surgery there are potential risks which include but are not limited to infection, nerve injury, hematoma, incisional numbness, no improvement of her neurogenic symptoms, elbow stiffness, andnerve instability which may require revision surgery. Her questions were solicited and answered and she wishes to proceed with right cubital and carpal tunnel decompressions to be done next month. NINOSKA ASH MD * Rebeca Ziegler MD - 06/10/2024 9:15 AM EST Chandrika Casanova 1965 [id number] 06/10/2024 HPI: Chandrika is 58 y.o. wouyh-pomh-nazmksuh who presents with 2 months of right hand numbness, tingling, pain as well as right elbow pain. Patient says she has had symptoms in her right hand and elbow for quite some time. She says this bothers her every day and wakes her up at night. She says she notices it when doing things like driving. She describes it as a deep soreness at her right elbow as well as numbness and tingling in all the fingers of her hand. She has tried night splints which helpedher for some time for her wrist, she has not tried intervention for her elbow. She has not had any injections. She says well in the beginning her symptoms are manageable and is gone to the point where it is severely impacting her life. Her family history is significant for a right total hip and herright total ankle replacement. She has history of well- controlled diabetes on insulin and Jardiance. She denies history of hypothyroidism. She has a history of bilateral lateral epicondylitis s/p debr idement. She is otherwise healthy. Past Medical History: Diagnosis Date Arthritis Back pain 04/09/2013 Diabetes mellitus Migraine Past Surgical History: Procedure Laterality Date APPENDECTOMY JOINT REPLACEMENT PRO ARTHROPLASTY ANKLE WITH IMPLANT Right 05/10/2022 TOTAL ANKLE ARTHROPLASTY (WRVU 14.42) performed by Radha Omalley MD at [facility] OSC PRO LAMINOTOMY, LUMBAR DISK, 1 INTRSP 08/24/2013 LAMINOTOMY, DECOMPRESSION, FORAMINOTOMY, LUMBAR performed by Sal Phan MD at [facility] MAIN OR PRO MICROSURG TECHNIQUES, REQ OPER MICROSCOPE 08/24/2013 MICROSCOPE USE performed by Sal Phan MD at [facility] MAIN OR PRO REMOVAL DEEP IMPLANT Right 05/10/2022 REMOVAL OF IMPLANT, DEEP, ANKLE (WRVU 5.96) performed by Radha Omalley MD at [facility] OSC TONSILLECTOMY Family History Problem Relation Age of Onset Cancer Mother High Blood Pressure Father Cancer Sister Social History Socioeconomic History Marital status: Spouse name: Not on file Number of children: Not on file Years of education: Not on file Highest education level: Not on file Occupational History Not on file Tobacco Use Smoking status: Never Smokeless tobacco: Never Vaping Use Vaping status: Never Used Substance and Sexual Activity Alcohol use: Not Currently Comment: once a year wine coolers Drug use: No Sexual activity: Yes Partners: Male Other Topics Concern Not on file Social History Narrative Not on file Social Determinants of Health Financial Resource Strain: Not on file Food Insecurity: Not on file Transportation Needs: Not on file Physical Activity: Not on file Intimate Partner Violence: Not on file Housing Stability: Not on file Review of Systems General: Negative Skin: Negative Eyes: Negative Cardiac: Negative Respiratory: Negative GI: Negative : Negative Musculoskeletal: Negative other than related to the chief complaint. Neurological: Negative Meds: Current Outpatient Medications on File Prior to Visit Medication Sig Dispense Refill ferrous sulfate (FeroSul) 325 mg (65 mg iron) tablet Take 325 mg by mouth every 48 hours as needed. aspirin EC 81 mg Tablet, Delayed Release (E.C.) Take 1 tablet by mouth 2 times daily. (Patient taking differently: Take 81 mg by mouth daily.) 60 tablet 0 triamcinolone acetonide (Kenalog) 0.1 % Paste DULoxetine DR (Cymbalta) 20 mg Capsule, Delayed Release(E.C.) Take 20 mg by mouth nightly. CALCIUM 26-VIT D3-MAGNESIUM 15 ORAL Take by mouth. ascorbic acid, vitamin C, (VITAMIN C) 1,000 mg Tablet Take 1,000 mg by mouth daily. OneTouch Verio test strips Strip Estring 2 mg (7.5 mcg /24 hour) Ring indomethacin (Indocin) 25 mg Capsule TAKE 1 CAPSULE BY MOUTH EVERY DAY NEEDED FOR MIGRAINE HEADACHE. DO NOT TAKE WITH CELEBREX Levemir FlexTouch U-100 Insuln Insulin Pen Inject 50 Units subcutaneously nightly. humaLOG KwikPen 100 unit/mL Insulin Pen OneTouch Delica Plus Lancet 30 gauge Misc Unifine Pentips Plus 31 gauge x 3/16 Needle rosuvastatin (Crestor) 20 mg Tablet Take 20 mg by mouth nightly. celecoxib (CeleBREX) 200 mg Capsule Take 400 mg by mouth daily. lisinopril (PRINIVIL;ZESTRIL) 5 mg tablet Take 5 mg by mouth daily. omeprazole (PRILOSEC) 20 mg capsule Take 20 mg by mouth daily. CYANOCOBALAMIN, VITAMIN B-12, ORAL Take 2,000 mcg by mouth daily. calcium-vitamin D3 600 mg-5 mcg (200 unit) Tablet Take by mouth 2 times daily. No current facility-administered medications on file prior to visit. Physical Exam: Height 170.2 cm (5' 7), weight 82.6 kg (182 lb). Patient is well appearing, no acute distress Normal cervical ROM with negative Spurlings Sensation intact baseline in median, ulnar, radial dist bilateral Motor intact to AIN, PIN, IO abilateral Tenderness over right elbow. Positive Tinel's at elbow. Positive Mague scratch test on right. Positive Tinels, Phalen's at right wrist. No thenar atrophy / softening Palpable radial pulse EMG: Personal review demonstrates mild to moderate cubital tunnel on right and carpal tunnel bilateral Active Problem List: Patient Active Problem List Diagnosis Code Diabetes mellitus type 1.5, managed as type 2 E13.9 Nevus D22.9 Low back pain M54.50 Lumbar herniated disc M51.26 Bilateral hand numbness R20.0 Assessment and Plan: Chandrika Casanova is a 58 year old RHD female with history, physical exam, EMG studies consistent with right carpal tunnel syndrome and right cubital tunnel syndrome she has tried nonoperative treatment and failed. We have a long discussion today about both issues. We discussed surgical release which comes with the risks of bleeding, infection, damage to nerves, damage to vessels, scarring, hand weakness, pond tender strength weakness, hand pain, hematoma, ulnar nerve instability, anesthesia risks. After the discussion she would like to proceed with surgery. Will schedule this at her convenience. documented in this encounter Plan of Treatment Upcoming Encounters Date Type Department Care Team (Latest Contact Info) Description 08/25/2024 8:10 AM EST Hospital Encounter Out[place] [phone] Ninoska Ash MD [facility] [place] [address] 08/25/2024 8:10 AM EST - 08/25/2024 9:30 AM EST Surgery [place] [phone] Ninoska Ash MD [facility] [place] [address] NEUROPLASTY &/OR TRANSPOSITION, ULNAR NERVE AT ELBOW (WRVU 7.26) 08/25/2024 9:40 AM EST Office Visit Dermatology at [address] [address] Gary Combs MD [facility] [place] [address] 09/10/2024 10:30 AM EST Office [place] [phone] Tess Florez PA [facility] [place] [address] Scheduled Orders Name Type Priority Associated Diagnoses Orde r Schedule SURGICAL CASE REQUEST NO POSTOP PAIN: NEUROPLASTY &/OR TRANSPOSITION, ULNAR NERVE AT ELBOW (WRVU 7.26), ENDOSCOPY WRIST W/ RELEASE TRANSVERSE CARPAL LIGAMENT (WRVU 6.39) Procedures Routine Carpal tunnel syndrome on right Cubital tunnel syndrome on right Ordered: 06/10/2024 Scheduled Procedures Name Priority Associated Diagnoses Date/Ti me NEUROPLASTY &/OR TRANSPOSITION, ULNAR NERVE AT ELBOW (WRVU 7.26) Carpal tunnel syndrome on right Cubital tunnel syndrome on right 08/25/2024 8:10 AM EST ENDOSCOPY WRIST W/ RELEASE TRANSVERSE CARPAL LIGAMENT (WRVU 6.39) Carpal tunnel syndrome on right Cubital tunnel syndrome on right 08/25/2024 8:10 AM EST documented as of this encounter Visit Diagnoses Diagnosis Cubital tunnel syndrome on right- Primary Lesion of ulnar nerve Carpal tunnel syndrome on right Carpal tunnel syndrome Carpal tunnel syndrome on right Carpal tunnel syndrome Cubital tunnel syndrome on right Lesion of ulnar nerve documented in this encounter Care Teams Environmental Sampling Technician Relationship Specialty Start Date End Date Genie Abdullahi MD [address] [place] [address] PCP - General 02/23/11 documented as of this encounter
--- OUTSIDE RECORDS SUMMARY | 2024-07-17 08:23 | XMS_ITS | Encounter Summary ---
Author Organization [place] [address] Care Team Providers Care Ergonomics Engineer Name Role Phone Genie Abdullahi MD Primary Care Provider [phone] Reason for Referral * Consultation (Routine) - Authorized Specialty Diagnoses / Procedures Referred By Gina terrell Referred To Contact Dermatology Diagnoses Skin lesion of face Genie Abdullhai MD [address] [place] [address] [facility] Dermatology [address] [place] [address] Referral ID Status Reason Start Date Expiration Date Visits Requested Visits Authorized [id number] Authorized Consult, Test & Treat PCP Updated and/or Approved 12/04/2023 12/03/2024 6 6 Encounter Details Date Type Department Care Team (Latest Contact Info) Description 12/04/2023 Transcribe Orders eDH Incoming Referrals [phone] Genie Abdullahi MD [address] [place] [address] Skin lesion of face Social History Tobacco Use Types Packs/Day Years [...] AM EST Hospital Encounter [place] [phone] Marvin Ash MD [facility] [place]THOPAED[place] [address] 08/25/2024 8:10 AM EST - 08/25/2024 9:30 AM EST Surgery [place] [phone] Marvin Ash MD [facility] [place]THOPAED[place] [address] NEUROPLASTY &/OR TRANSPOSITION, ULNAR NERVE AT ELBOW (WRVU 7.26) 08/25/2024 9:40 AM EST Office Visit Dermatology at [address] [address] Gary Combs MD [facility] [address] [facility] [address] 09/10/2024 10:30 AM EST Office [place] [phone] Tess Florez PA [facility] [place]OP[place] [address] Scheduled Procedures Name Priority Associated Diagnoses Date/Ti me NEUROPLASTY &/OR TRANSPOSITION, ULNAR NERVE AT ELBOW (WRVU 7.26) Carpal tunnel syndrome on right Cubital tunnel syndrome on right 08/25/2024 8:10 AM EST ENDOSCOPY WRIST W/ RELEASE TRANSVERSE CARPAL LIGAMENT (WRVU 6.39) Carpal tunnel syndrome on right Cubital tunnel syndrome on right 08/25/2024 8:10 AM EST Scheduled Referrals Name Type Priority Associated Diagnoses Order Schedule Referral to Dermatology Outpatient Referral Routine Skin lesion of face Ordered: 12/04/2023 documented as of this encounter Visit Diagnoses Diagnosis Skin lesion of face Unspecified disorder of skin and subcutaneous tissue Carpal tunnel syndrome on right Carpal tunnel syndrome Cubital tunnel syndrome on right Lesion of ulnar nerve documented in this encounter Care Teams Ergonomics Engineer Relationship Specialty Start Date End Date Genie Abdullahi MD [facility] [address] [facility] [address] [place] [address] PCP - General 02/23/11 documented as of this encounter
--- OUTSIDE RECORDS SUMMARY | 2024-07-17 08:23 | XMS_ITS | Encounter Summary ---
[place] [address] Care Team Providers Care Telephone Information Supervisor Name Role Phone Genie Abdullahi MD Primary Care Provider [phone] Encounter Details Date Type Department Care Team (Latest Contact Info) Description 05/07/2024 Travel Social History Tobacco Use Types Packs/Day [...] AM EST Hospital Encounter Outpatient [place] [address] Marvin Ash MD [facility] [place] [address] 08/25/2024 8:10 AM EST - 08/25/2024 9:30 AM EST Surgery Outpatient [place] [phone] Marvin Ash MD [facility] [place] [address] NEUROPLASTY &/OR TRANSPOSITION, ULNAR NERVE AT ELBOW (WRVU 7.26) 08/25/2024 9:40 AM EST Office Visit Dermatology at [address] [place] [address] Gary Combs MD [facility] [place] [address] 09/10/2024 10:30 AM EST Office [place] [address] Tess Florez PA [facility] [place] [address] Scheduled Procedures Name Priority Associated Diagnoses Date/Ti [...] on filedocumented in this encounter Care Teams Telephone Information Supervisor Relationship Specialty Start Date End Date Genie Abdullahi MD [address] [place] [address] PCP - General 02/23/11 documented as of this encounter
--- OUTSIDE RECORDS SUMMARY | 2024-07-17 08:23 | XMS_ITS | Encounter Summary ---
Author Organization [facility] [place] [address] Care Team Providers Care Hvac Installation Technician Name Role Phone Genie Abdullahi MD Primary Care Provider [phone] Reason for Visit * Reason Comments Basal Cell Carcinoma Encounter Details Date Type Department Care Team (Latest Contact Info) Description 05/07/2024 10:45 AM EDT Clinical Support Dermatology at [facility] [address] [place] [address] Amilcar Chan MD [facility] [place] [address] Basal cell carcinoma (BCC) of right ala nasi Social History Tobacco Use Types Packs/Day Years [...] as of this encounter Progress Notes * Anila Casillas LPN - 05/07/2024 10:45 AM EDT Mohs consultation and preoperative note (H&P) Patient Name: Chandrika Casanova Age: 58 y.o. Date of : 1965 Today's Date: 05/07/2024 REFERRING PROVIDER: Felicitas Medina MD CC: Mohs micrographic surgery for treatment of a cutaneous tumor HPI: Chandrika Casanova is a 58 y.o. female presenting for biopsy-proven basal cell carcinoma, nodular and infiltrating location on the right nasal ala. The dermatologic preoperative information sheet was reviewed with pertinent positive and negative as below. DERMATOLOGIC PRE-OPERATIVE EVALUATION AND REVIEW OF SYSTEMS History of Mohs surgery? no If yes, have you ever had Mohs surgery with Dr. Chan? no Pacemaker/Defibrillator? no Joint replacement or other implantable devices (e.g. Cochlear implant)? If yes then when? Yes, total right hip replacement, and right ankle replacement 2021 Do you take a blood thinner? Yes Aspirin 81mg History of organ transplant? no History of artificial valve or stroke? no History of liver disease or bleeding disorder? no Do you have any medical problems that may affect your upcoming surgery? no Do you have any concerns regarding your upcoming surgery? no We ask patients to discontinue Fish oil/Multivitamin/Vit E/?? supplements and natural medicines not prescribed by a physician 1 week prior to surgery. SOCIAL HISTORY: Makes Own Decisions Yes Hearing aid or other devices: Yes , glasses and hearing aids Relevant travel history or future plans: none Tobacco use (amount per day, type of tobacco): no Do you have any physical limitations that may affect your surgery?: no ALLERGIES: Allergies reviewed MEDICATIONS: Medications reviewed documented in this encounter Plan of Treatment Upcoming Encounters Date Type Department Care Team (Latest Contact Info) Description 08/25/2024 8:10 AM [facility] Hospital Encounter Outpatient [place] [address] Marvin Ash MD [facility] [place] [address] 08/25/2024 8:10 AM EST - 08/25/2024 9:30 AM EST Surgery [place]patient [place] [address] Marvin Ash MD [facility] [place] [address] NEUROPLASTY &/OR TRANSPOSITION, ULNAR NERVE AT ELBOW (WRVU 7.26) 08/25/2024 9:40 AM EST Office Visit Dermatology at [facility] [address] [place] [address] Gary Combs MD [facility] [place] [address] 09/10/2024 10:30 AM EST Office Visit Orthopaedics at [facility] ([place] [address] Tess Florez PA [facility] [place] [address] Scheduled Procedures Name Priority Associated Diagnoses Date/Ti me NEUROPLASTY &/OR TRANSPOSITION, ULNAR NERVE AT ELBOW (WRVU 7.26) Carpal tunnel syndrome on right Cubital tunnel syndrome on right 08/25/2024 8:10 AM EST ENDOSCOPY WRIST W/ RELEASE TRANSVERSE CARPAL LIGAMENT (WRVU 6.39) Carpal tunnel syndrome on right Cubital tunnel syndrome on right 08/25/2024 8:10 AM EST documented as of this encounter Visit Diagnoses Diagnosis Basal cell carcinoma (BCC) of right ala nasi Carpal tunnel syndrome on right Carpal tunnel syndrome Cubital tunnel syndrome on right Lesion of ulnar nerve documented in this encounter Care Teams Hvac Installation Technician Relationship Specialty Start Date End Date Genie Abdullahi MD [facility] [address] [place] [address] PCP - General 02/23/11 documented as of this encounter
--- OUTSIDE RECORDS SUMMARY | 2024-07-17 08:23 | XMS_ITS | Clinical Summary ---
Author Organization [facility] Address [facility] [place] [address] Care Team Providers Care Manager Traffic Name Role Phone Genie Abdullahi MD Primary Care Provider [phone] Allergies Active Allergy Reactions Criticality Noted Date Comments Adhesive Tape Rash 04/09/2013 Sulfamethoxazole-Trimethoprim Rash 2012 Cephalexin Rash 03/21/2011 Medications Medication Sig Dispensed Refills Start Date End Date Status lisinopril (PRINIVIL;ZESTRIL ) 5 mg tablet Take 5 mg by mouth daily. Active omeprazole (PRILOSEC) 20 mg capsule Take 20 mg by mouth daily. Active CYANOCOBALAMIN, VITAMIN B-12, ORAL Take 2,000 mcg by mouth daily. Active calcium-vitamin D3 600 mg-5 mcg (200 unit) Tablet Take by mouth 2 times daily. Active OneTouch Verio test strips Strip 07/21/2021 Active Estring 2 mg (7.5 mcg /24 hour) Ring 08/29/2021 Active indomethacin (Indocin) 25 mg Capsule TAKE 1 CAPSULE BY MOUTH EVERY DAY NEEDED FOR MIGRAINE HEADACHE. DO NOT TAKE WITH CELEBREX 07/17/2021 Active Levemir FlexTouch U-100 Insuln Insulin Pen Inject 50 Units subcutaneously nightly. 08/22/2021 Active humaLOG KwikPen 100 unit/mL Insulin Pen 08/31/2021 Active OneTouch Delica Plus Lancet 30 gauge Misc 06/23/2021 Active Unifine Pentips Plus 31 gauge x 3/16 Needle 08/14/2021 Active rosuvastatin (Crestor) 20 mg Tablet Take 20 mg by mouth nightly. 08/28/2021 Active celecoxib (CeleBREX) 200 mg Capsule Take 400 mg by mouth daily. 07/17/2021 Active triamcinolone acetonide (Kenalog) 0.1 % Paste 04/18/[address] (Cymbalta) 20 mg Capsule, Delayed Release(E.C.) Take 20 mg by mouth nightly. 04/03/2022 Active CALCIUM 26-VIT D3-MAGNESIUM 15 ORAL Take by mouth. Active ascorbic acid, vitamin C, (VITAMIN C) 1,000 mg Tablet Take 1,000 mg by mouth daily. Active aspirin EC 81 mg Tablet, Delayed Release (E.C.) Take 1 tablet by mouth 2 times daily. 60 tablet 05/10/2022 Active Additional Information Patient taking differently:81 mg OralDAILY, Reported on 09/05/2022 ferrous sulfate (FeroSul) 325 mg (65 mg iron) tablet Take 325 mg by mouth every 48 hours as needed. Active Active Problems Problem Noted Date Diagnosed Date Bilateral hand numbness 03/12/2024 Lumbar herniated disc 08/19/2013 Low back pain 04/09/2013 Nevus 08/15/2011 Diabetes mellitus type 1.5, managed as type 2 Encounters Date Type Department Care Team Description 06/10/2024 9:15 AM EST Office [place] [phone] Marvin Ash MD Cubital tunnel syndrome on right (Primary Dx); Carpal tunnel syndrome on right 06/09/2024 Travel 05/22/2024 4:30 PM EDT [place] [address]1000 Violet Oliva PA 05/20/2024 External [place] [phone] Jose Mcdermott MD 05/19/2024 2:45 PM EDT Office Visit Dermatology at [facility] [address] [place] [address] Amilcar Chan MD Encounter for removal of sutures 05/19/2024 1:00 PM EDT Procedure [place] [address] Jose Mcdermott MD Carpal tunnel syndrome, bilateral 05/18/2024 Travel 05/07/2024 11:00 AM EDT Procedure visit Dermatology at [facility] [address] [place] [address] Amilcar Chan MD Basal cell carcinoma (BCC) of right ala nasi 05/07/2024 10:45 AM EDT Clinical Support Dermatology at [facility] [address] [place] [address] Amilcar Chan MD Basal cell carcinoma (BCC) of right ala nasi 05/07/2024 Travel 05/04/2024 Telephone Dermatology at [facility] [address] [place] [address] Ángela Carlos RN 05/01/2024 Travel from Last 3 Months Immunizations Name Administration Dates Next Due Covid-19 Monovalent (Moderna Spikevax) 12yrs+ ([id number]) 03/11/2022,05/30/2021,11/20/2020, 021 Family History Medical History Relation Comments High Blood Pressure Father Cancer Mother Cancer Sister Relation Status Comments Daughter Alive Father Alive Mother Sister Alive Social History Tobacco Use Types Packs/Day Years Used Date Smoking Tobacco: Never Smokeless Tobacco: Never Alcohol Use Standard Drinks/Week Comments Not Currently 0 (1 standard drink = 0.6 oz pur e alcohol) once a year wine coolers Sex and Gender Information Value Date Recorded Sex Assigned at Not on file Gender Identity Not on file Sexual Orientation Not on file Last Filed Vital Signs Vital Sign Reading Time Taken Comments Blood Pressure 119/75 05/07/2024 10:42 AM EDT Pulse 78 05/07/2024 10:42 AM EDT Temperature 36.2 ??C (97.2 ??F) 05/10/2022 5:10 PM ED T Respiratory Rate 16 05/10/2022 5:10 PM EDT Oxygen Saturation 95% 05/10/2022 6:30 PM EDT Inhaled Oxygen Concentration - - Weight 82.6 kg (182 lb) 06/10/2024 9:05 AM EST Height 170.2 cm (5' 7) 06/10/2024 9:05 AM EST Body Mass Index 28.51 06/10/2024 9:05 AM EST Plan of Treatment Upcoming Encounters Date Type Department Care Team (Latest Contact Info) Description 08/25/2024 8:10 AM EST Hospital Encounter [place] [phone] Marvin Ash MD [facility] [place] [address] 08/25/2024 8:10 AM EST - 08/25/2024 9:30 AM EST Surgery Outpatient [place] [address]1000 Marvin Ash MD [facility] [place] [address] NEUROPLASTY &/OR TRANSPOSITION, ULNAR NERVE AT ELBOW (WRVU 7.26) 08/25/2024 9:40 AM EST Office Visit Dermatology at [address] [phone] Gary Combs MD [facility] DR [facility] [place] [address] 09/10/2024 10:30 AM EST Office [place] [address]1000 Tess Florez PA [facility] [place] [address] Scheduled Procedures Name Priority Associated Diagnoses Date/Ti me NEUROPLASTY &/OR TRANSPOSITION, ULNAR NERVE AT ELBOW (WRVU 7.26) Carpal tunnel syndrome on right Cubital tunnel syndrome on right 08/25/2024 8:10 AM EST ENDOSCOPY WRIST W/ RELEASE TRANSVERSE CARPAL LIGAMENT (WRVU 6.39) Carpal tunnel syndrome on right Cubital tunnel syndrome on right 08/25/2024 8:10 AM EST Health Maintenance Due Date Last Done Comments CT Colonography 1963 Colonoscopy 1963 Colorectal Cancer Screening 1963 FIT DNA 1963 FIT 1963 Sigmoidoscopy (10 year) with FIT yearly 1963 Sigmoidoscopy 1963 Pneumococcal Vaccine: At-Ris k 5-64yrs (1 of 2 - PCV) 11/05/1969 DM Creatinine yearly 11/05/1973 DM Hemoglobin A1c 11/05/1973 DM Opthalmology Exam 11/05/1973 DM Urine Microalbumin yearly 11/05/1973 HIV screen 11/05/1981 Hepatitis C Screening 11/05/1981 Tetanus/Diphtheria/Pertussis Vaccines (1 - Tdap) 11/05/1982 HPV test 11/05/1993 PAP Smear 11/05/1993 Breast Cancer Share Decision Needed 2003 Breast Cancer screening 2003 Zoster vaccine (1 of 2) 11/05/2013 Advance Directive 11/05/2018 Covid-19 Vaccine (2023-2 5 season) 2024 06/10/2023, 08/24/2022, 03/11/2022, Additional history exists Influenza (Flu) vaccine (1 o f 1 - Influenza standard series) 04/05/2024 Medical Devices Implanted Type Area Sander Machine Device Identifier Shelf Expiration Date Model / Serial / Lot Graft Bone Filler 1cc Dbm Injectable Putty Allomatrix ([id number]) (Autoreq) - [id number] Implanted:Qty: 1 on 05/10/2022 by Radha Omalley MD at [facility] IMPLANTS Right: Ankle [employer] - XEMAX SURG 09/10/2026 [id number] / [id number] / Component Tibial Ankle Joint 16mm Rt Lt Inbone ([id number]) (Autoreq) - [id number] Implanted:Qty: 1 on 05/10/2022 by Radha Omalley MD at [facility] IMPLANTS Right: Ankle [employer] - [employer] MED 04/11/2030 [id number] / / [id number] Component Tibial Ankle Joint 16mm Rt Lt Inbone ([id number]) - [id number] Implanted:Qty: 1 on 05/10/2022 by Radha Omalley MD at [facility] IMPLANTS Right: Ankle [facility] 04/17/[id number] / / [id number] Component Tibial Ankle Joint Sz 3 Rt Long Inbone ([id number]) (Autoreq) - [id number] Implanted:Qty: 1 on 05/10/2022 by Radha Omalley MD at [facility] IMPLANTS Right: [facility] MED 02/06/[id number] / / [id number] Component Subtalar Ankle Joint 10mm Sz 1 Lrg Inbone ([id number]) (Autoreq) - [id number] Implanted:Qty: 1 on 05/10/2022 by Radha Omalley MD at [facility] IMPLANTS Right: [facility] 12/17/[id number] / / [id number] Dome Talar Sulcus Ankle Joint Sz 3 Inbone ([id number]) (Autoreq) - [id number] Implanted:Qty: 1 on 05/10/2022 by Radha Omalley MD at [facility] IMPLANTS Right: [facility] 09/06/2029 [id number] / / [id number] Insert Tibial Ankle Joint 8mm Sz 3 Rt Lt Poly ([id number]) (Autoreq) - [id number] Implanted:Qty: 1 on 05/10/2022 by Radha Omalley MD at [facility] IMPLANTS Right: [facility] 09/15/2027 [id number] / / [id number] Procedures Procedure Name Priority Date/Time Associated Diagnosis Comments EMG SCAN Routine 05/19/2024 2:03 PM EDT from Last 3 Months Results * Scan Doc: EMG (05/19/2024 2:03 PM EDT) Jose Mcdermott MD MEDIA MGR SCAN EXT O RDR/RSLT from Last 3 Months Care Teams Manager Traffic Relationship Specialty Start Date End Date Genie Abdullahi MD [facility] [address] [place], [place] [id number] PCP - General 02/23/11
--- OUTSIDE RECORDS SUMMARY | 2024-07-17 08:23 | XMS_ITS | Encounter Summary ---
Author Organization [facility] [place] [address] Care Team Providers Care Civil Engineering Designer Name Role Phone Genie Abdullahi MD Primary Care Provider [phone] Encounter Details Date Type Department Care Team (Late st Contact Info) Description 05/22/2024 4:30 PM EDT [place] [address] Violet Oliva PA [facility] [place] [address] Social History Tobacco Use Types Packs/Day Years [...] on file documented as of this encounter Miscellaneous Notes * Telephone Encounter - Katiana Clark - 05/22/2024 3:58 PM EDT scheduled * Telephone Encounter - Violet Oliva PA - 05/22/2024 3:23 PM EDT The patient was counseled that I personally reviewed her EMGs and nerve conduction studies. The patient has right worse than left carpal tunnel syndrome and mild right cubital tunnel syndrome. She was given treatment options for her carpal tunnel syndrome including nocturnal wrist splinting, corticosteroid injection although this will likely only provided transient relief, versus surgical carpal tunnel release. The patient was counseled to particular attention to it for small fingers if they are involved in the numbness. She will wear nocturnal wrist splints and right elbow extension splint in the interim. Follow up: next available with Dr. Ash to discuss carpal tunnel surgery with possible right cubital tunnel surgery. Violet Oliva PA-C documented in this encounter Plan of Treatment Upcoming Encounters Date Type Department Care Team (Latest Contact Info) Description 08/25/2024 8:10 AM EST Hospital Encounter Outpatient [place] [phone] Marvin Ash MD [facility] [address] 08/25/2024 8:10 AM EST - 08/25/2024 9:30 AM EST Surgery Outpatient [place] [phone] Marvin Ash MD [facility] [place] [address] NEUROPLASTY &/OR TRANSPOSITION, ULNAR NERVE AT ELBOW (WRVU 7.26) 08/25/2024 9:40 AM EST Office Visit Dermatology at [address] [address] Gary Combs MD [facility] [place] [address] 09/10/2024 10:30 AM EST Office [place] [phone] Tess Florez PA [facility] [address] Scheduled Procedures Name Priority Associated Diagnoses Date/Ti [...] on filedocumented in this encounter Care Teams Civil Engineering Designer Relationship Specialty Start Date End Date Genie Abdullahi MD [address] [place] [address] PCP - General 02/23/11 documented as of this encounter
--- OUTSIDE RECORDS SUMMARY | 2024-07-17 08:23 | XMS_ITS | Encounter Summary ---
[place] [address] Care Team Providers Care Departmental Secretary Name Role Phone Genie Abdullahi MD Primary Care Provider [phone] Encounter Details Date Type Department Care Team (Latest Contact Info) Description 07/04/2022 Travel Social History Tobacco Use Types Packs/Day [...] AM EST Hospital Encounter [place]patient [place] [address] Marvin Ash MD [facility] [place] [address] 08/25/2024 8:10 AM EST - 08/25/2024 9:30 AM EST Surgery [place] [phone] Marvin Ash MD [facility] [place] [address] NEUROPLASTY &/OR TRANSPOSITION, ULNAR NERVE AT ELBOW (WRVU 7.26) 08/25/2024 9:40 AM EST Office Visit Dermatology at [address] [place] [address] Gary Combs MD [facility] [place] [address] 09/10/2024 10:30 AM EST Office [place] [address] Tess Florez PA [facility] [place] [address] Scheduled Procedures Name Priority Associated Diagnoses Date/Ti [...] on filedocumented in this encounter Care Teams Departmental Secretary Relationship Specialty Start Date End Date Genie Abdullahi MD [address] [place] [address] PCP - General 02/23/11 documented as of this encounter
--- OUTSIDE RECORDS SUMMARY | 2024-07-17 08:23 | XMS_ITS | Encounter Summary ---
Author Organization [facility] Address [facility] [place] [address] Care Team Providers Care Blockman Name Role Phone Genie Abdullahi MD Primary Care Provider [phone] Encounter Details Date Type Department Care Team (Latest Contact Info) Description 09/05/2022 9:12 AM EST - 09/05/2022 11:59 PM [facility] Hospital Encounter XRay at [address] [place] [address] Radha Omalley MD [facility] [place] [address] Post-traumatic osteoarthritis of right ankle Discharge Disposition: Home Social History Tobacco Use Types Packs/Day Years [...] on file documented as of this encounter Medications at Time of Discharge Medication Sig Dispensed Refills Start Date End Date aspirin EC 81 mg Tablet, Delayed Release (E.C.) Take 1 tablet by mouth 2 times daily. 60 tablet 05/10/2022 triamcinolone acetonide (Kenalog) 0.1 % Paste 04/18/[address] (Cymbalta) 20 mg Capsule, Delayed Release(E.C.) Take 20 mg by mouth nightly. 04/03/2022 CALCIUM 26-VIT D3-MAGNESIUM 15 ORAL Take by mouth. ascorbic acid, vitamin C, (VITAMIN C) 1,000 mg Tablet Take 1,000 mg by mouth daily. OneTouch Verio test strips Strip 07/21/2021 Estring 2 mg (7.5 mcg /24 hour) Ring 08/29/2021 indomethacin (Indocin) 25 mg Capsule TAKE 1 CAPSULE BY MOUTH EVERY DAY NEEDED FOR MIGRAINE HEADACHE. DO NOT TAKE WITH CELEBREX 07/17/2021 Levemir FlexTouch U-100 Insuln Insulin Pen Inject 50 Units subcutaneously nightly. 08/22/2021 humaLOG KwikPen 100 unit/mL Insulin Pen 08/31/2021 OneTouch Delica Plus Lancet 30 gauge Misc 06/23/2021 Unifine Pentips Plus 31 gauge x 3/16 Needle 08/14/2021 rosuvastatin (Crestor) 20 mg Tablet Take 20 mg by mouth nightly. 08/28/2021 celecoxib (CeleBREX) 200 mg Capsule Take 400 mg by mouth daily. 07/17/2021 lisinopril (PRINIVIL;ZESTRIL) 5 mg tablet Take 5 mg by mouth daily. omeprazole (PRILOSEC) 20 mg capsule Take 20 mg by mouth daily. CYANOCOBALAMIN, VITAMIN B-12, ORAL Take 2,000 mcg by mouth daily. calcium-vitamin D3 600 mg-5 mcg (200 unit) Tablet Take by mouth 2 times daily. azelastine (ASTELIN) 137 mcg (0.1 %) Aerosol, [place] 1 spray by Nasal route 2 times daily. Use in each nostril as directed 05/19/2024 documented as of this encounter Plan of Treatment Upcoming Encounters Date Type Department Care Team (Latest Contact Info) Description 08/25/2024 8:10 AM [facility] Hospital Encounter [place] [address] Marvin Ash MD [facility] [place] [address] 08/25/2024 8:10 AM EST - 08/25/2024 9:30 AM EST Surgery [place] [address] Marvin Ash MD [facility] [place] [address] NEUROPLASTY &/OR TRANSPOSITION, ULNAR NERVE AT ELBOW (WRVU 7.26) 08/25/2024 9:40 AM EST Office Visit Dermatology at [facility] [address] [place] [address] Gary Combs MD [facility] [address] [place] [address] 09/10/2024 10:30 AM EST Office [place] [address] Tess Florez PA [facility] [place] [address] Scheduled Procedures Name Priority Associated Diagnoses Date/Ti me NEUROPLASTY &/OR TRANSPOSITION, ULNAR NERVE AT ELBOW (WRVU 7.26) Carpal tunnel syndrome on right Cubital tunnel syndrome on right 08/25/2024 8:10 AM EST ENDOSCOPY WRIST W/ RELEASE TRANSVERSE CARPAL LIGAMENT (WRVU 6.39) Carpal tunnel syndrome on right Cubital tunnel syndrome on right 08/25/2024 8:10 AM EST documented as of this encounter Procedures Procedure Name Priority Date/Time Associated Diagnosis Comments XR ANKLE MIN 3 VIEWS RIGHT Routine 09/05/2022 9:30 AM EST Post-traumatic osteoarthritis of right ankle documented in this encounter Results * XR Ankle Min 3 views Right (Generic) (09/05/2022 9:30 AM EST) Anatomical Region Laterality Modality Ankle Right Digital Radiogra phy Impressions 09/05/2022 11:09 AM EST 1. ??Uncomplicated right total ankle arthroplasty. 2. ??Nonspecific tibiotalar joint effusion and soft tissue swelling around the right ankle. Thank you for letting us participate in the care of this patient. ??If you are a health care provider and have any questions regarding this report, please contact the number below. ??For patients who have questions please contact the health care transitions manager that requested your imaging first. ? Electronically signed by: Janneth Bearden MD, [facility] ([phone]), at 09/05/2022 11:09 AM Narrative 09/05/2022 11:09 AM EST EXAMINATION: XR ANKLE MIN 3 VIEWS RIGHT (GENERIC) CLINICAL HISTORY: s/p R TAA (as entered by ordering provider in the order requisition) TECHNIQUE: AP, oblique, and lateral views of the right ankle. COMPARISON: Right ankle radiographs 07/04/2022 and 05/23/2022. FINDINGS: Soft tissue prominence around the right ankle. There is a moderate tibiotalar joint effusion. There are postoperative changes status post total ankle arthroplasty. Similar appearance of punctate metallic debris along the medial and anterior aspect of the ankle. Hardware is intact. Severe fracture or bone resorption. Normal alignment of the tibiotalar joint. Postoperative changes status post hardware removal from the distal fibula and the medial malleolus. Procedure Note Janneth Bearden MD - 09/05/2022 EXAMINATION: XR ANKLE MIN 3 VIEWS RIGHT (GENERIC) CLINICAL HISTORY: s/p R TAA (as entered by ordering provider in theorder requisition) TECHNIQUE: AP, oblique, and lateral views of the right ankle. COMPARISON: Right ankle radiographs 07/04/2022 and 05/23/2022. FINDINGS: Soft tissue prominence around the right ankle. There is a moderatetibiotalar joint effusion. There are postoperative changes status post total ankle arthroplasty. Similar appearance of punctate metallic debris along themedial and anterior aspect of the ankle. Hardware is intact. Severe fracture or bone resorption. Normal alignment of the tibiotalarjoint. Postoperative changes status post hardware removal from the distal fibulaand the medial malleolus. IMPRESSION 1. Uncomplicated right total ankle arthroplasty. 2. Nonspecific tibiotalar joint effusion and soft tissue swelling aroundthe right ankle. Thank you for letting us participate in the care of this patient. If youare a health care provider and have any questions regarding this report,please contact the number below. For patients who have questions please contactthe health care transitions manager that requested your imaging first. Electronically signed by: Janneth Bearden MD, [facility]([phone]), at 09/05/2022 11:09 AM Radha Omalley MD IMG DX ORDERABLES documented in this encounter Visit Diagnoses Diagnosis Post-traumatic osteoarthritis of right ankle Carpal tunnel syndrome on right Carpal tunnel syndrome Cubital tunnel syndrome on right Lesion of ulnar nerve documented in this encounter Care Teams Blockman Relationship Specialty Start Date End Date Genie Abdullahi MD [facility] [address] [place] [address] PCP - General 02/23/11 documented as of this encounter
--- OUTSIDE RECORDS SUMMARY | 2024-07-17 08:23 | XMS_ITS | Encounter Summary ---
[place] [address] Care Team Providers Care Director Of Business Operations Name Role Phone Genie Abdullahi MD Primary Care Provider [phone] Encounter Details Date Type Department Care Team (Latest Contact Info) Description 05/08/2023 Travel Social History Tobacco Use Types Packs/Day [...] AM EST Hospital Encounter Outpatient [place] [address] Marvin Ash MD [facility] [place] [address] 08/25/2024 8:10 AM EST - 08/25/2024 9:30 AM EST Surgery Outpatient [place] [phone] Marvin Ash MD [facility] [place] [address] NEUROPLASTY &/OR TRANSPOSITION, ULNAR NERVE AT ELBOW (WRVU 7.26) 08/25/2024 9:40 AM EST Office Visit Dermatology at [address] [place] [address] Gary Combs MD [facility] [place] [address] 09/10/2024 10:30 AM EST Office [place] [address] Tess Florez PA [facility] [place] [address] Scheduled Procedures Name Priority Associated Diagnoses Date/Ti [...] on filedocumented in this encounter Care Teams Director Of Business Operations Relationship Specialty Start Date End Date Genie Abdullahi MD [address] [place] [address] PCP - General 02/23/11 documented as of this encounter
--- OUTSIDE RECORDS SUMMARY | 2024-07-17 08:23 | XMS_ITS | Encounter Summary ---
[place] [address] Care Team Providers Care Master Scheduler Name Role Phone Genie Abdullahi MD Primary Care Provider [phone] Encounter Details Date Type Department Care Team (Latest Contact Info) Description 09/05/2022 Travel Social History Tobacco Use Types Packs/Day [...] AM EST Hospital Encounter [place] [address] Marvin Ash MD [facility] DR [place]THOPAED[place] [address] 08/25/2024 8:10 AM EST - 08/25/2024 9:30 AM EST Surgery [place] [phone] Marvin Ash MD [facility] DR [place] [address] NEUROPLASTY &/OR TRANSPOSITION, ULNAR NERVE AT ELBOW (WRVU 7.26) 08/25/2024 9:40 AM EST Office Visit Dermatology at [address] [place] [address] Gary Combs MD [facility] [address] [place] [address] 09/10/2024 10:30 AM EST Office [place] [address] Tess Florez PA [facility] [place]ED[place] [address] Scheduled Procedures Name Priority Associated Diagnoses Date/Ti [...] on filedocumented in this encounter Care Teams Master Scheduler Relationship Specialty Start Date End Date Genie Abdullahi MD [address] [place] [address] PCP - General 02/23/11 documented as of this encounter
--- OUTSIDE RECORDS SUMMARY | 2024-07-17 08:23 | XMS_ITS | Encounter Summary ---
Author Organization [facility] Address [address] [place] [address] Care Team Providers Care Mercerizer Name Role Phone Unavailable Primary Care Provider Unavailabl e Encounter Details Date Type Department Care Team (Latest Contact Info) Description 05/12/2002 8:15 EDT - 05/12/2002 11:59 EDT Hospital Encounter [facility] [address] [place] [address] Ramesh Almanza MD Discharge Disposition: Auto Discharge Social History Tobacco Use Types Packs/Day Years Used Date Smoking Tobacco: Never Assessed Comments Unknown Sex and Gender Information Value Date Recorded Sex Assigned at Not on file Legal Sex Female 18:19 EST Gender Identity Not on file Sexual Orientation Not on file documented as of this encounter Discharge Disposition Disposition Code Departure Means Destination Auto Discharge documented in this encounter Plan of Treatment Not on file documented as of this encounter Procedures Procedure Name Priority Date/Time Associated Diagnosis Comments NM GASTRIC EMPTYING SCAN Routine 05/12/2002 10:27 EDT documented in this encounter Results * NM GASTRIC EMPTYING SCAN (05/12/2002 10:27 EDT) Anatomical Region Laterality Modality Other 05/12/2002 10:2 7 EDT Narrative 05/02/2009 1:47 EDT GASTRIC EMPTYING, EPIGASTRIC PAIN R/O DELAYED GASTRIC EMPTYING(YARON T O FAX) GASTRIC EMPTYING STUDY: 05/12/02, 0830 hours INDICATIONS: Epigastric pain; rule out delayed gastric emptying. TECHNIQUE: 1 mCi Tc-99m Sulfur Colloid tagged with eggs is mixed with beef stew and given with orange juice. Images are obtained at 15-minute intervals up to 90 minutes and percent gastric emptying is calculated. FINDINGS: The study demonstrates delayed gastric emptying with only 15% emptying at 30 minutes, 23% gastric emptying at 60 minutes, and only 25% emptying at 90 minutes. A normal study would show at least 50% gastric emptying by 90 minutes. IMPRESSION: Delayed gastric emptying. D 05/12/02 T 05/13/02katarzyna Procedure Note Vinny Carr MD / Misael Alva MD - 05/02/2009 GASTRIC EMPTYING, EPIGASTRIC PAIN R/O DELAYED GASTRIC EMPTYING(YARON T O FAX) GASTRIC EMPTYING STUDY: 05/12/02, 0830 hours INDICATIONS: Epigastric pain; rule out delayed gastric emptying. TECHNIQUE: 1 mCi Tc-99m Sulfur Colloid tagged with eggs is mixed with beef stew and given with orange juice. Images are obtained at 15-minute intervals up to 90 minutes and percent gastric emptying is calculated. FINDINGS: The study demonstrates delayed gastric emptying with only 15% emptying at 30 minutes, 23% gastric emptying at 60 minutes, and only 25% emptying at 90 minutes. A normal study would show at least 50% gastric emptying by 90 minutes. IMPRESSION: Delayed gastric emptying. D 05/12/02 T 05/13/02katarzyna Ramesh Almanza MD [facility] [place] ORDERABLES Final Result documented in this encounter Visit Diagnoses Not on filedocumented in this encounter
--- OUTSIDE RECORDS SUMMARY | 2024-07-17 08:23 | XMS_ITS | Encounter Summary ---
[place] [address] Care Team Providers Care Entertainment Production Professional Name Role Phone Genie Abdullahi MD Primary Care Provider [phone] Encounter Details Date Type Department Care Team (Latest Contact Info) Description 01/16/2024 Travel Social History Tobacco Use Types Packs/Day [...] AM EST Hospital Encounter [place] [address] Marvin Ash MD [facility] [address] ORTHOPAED[place] [address] 08/25/2024 8:10 AM EST - 08/25/2024 9:30 AM EST Surgery [place] [address] Marvin Ash MD [facility] DR ORTHOPA[place] [address] NEUROPLASTY &/OR TRANSPOSITION, ULNAR NERVE AT ELBOW (WRVU 7.26) 08/25/2024 9:40 AM EST Office Visit Dermatology at [address] [place] [address] Gary Combs MD [facility] [address] [facility] [place] [address] 09/10/2024 10:30 AM EST Office [place] [address] Tess Florez PA [facility] OR[place]OP[place] [address] Scheduled Procedures Name Priority Associated Diagnoses Date/Ti [...] on filedocumented in this encounter Care Teams Entertainment Production Professional Relationship Specialty Start Date End Date Genie Abdullahi MD [address] [place] [address] PCP - General 02/23/11 documented as of this encounter
--- OUTSIDE RECORDS SUMMARY | 2024-07-17 08:23 | XMS_ITS | Encounter Summary ---
Author Organization [facility] Address [facility] [place] [address] Care Team Providers Care Customer Development Manager Name Role Phone Genie Abdullahi MD Primary Care Provider [phone] Reason for Visit * Reason Comments Basal Cell Carcinoma * Consultation (Routine) - Closed Specialty Diagnoses / Procedures Referred By Gina terrell Referred To Contact Dermatology Diagnoses Basal cell carcinoma (BCC) of right ala nasi Felicitas Median MD [facility] [address] [place] [address] Amilcar Chan MD [facility] [address] [place] [address] Referral ID Status Reason Start Date Expiration Date V isits Requested Visits Authorized [id number] Closed Consult, Test & Treat 03/31/2024 03/31/2025 1 1 Encounter Details Date Type Department Care Team (Latest Contact Info) Description 05/07/2024 11:00 AM EDT Procedure visit Dermatology at [facility] [address] [place] [address] Amilcar Chan MD [facility] [address] [place] [address] Basal cell carcinoma (BCC) of right ala [...] Pulse 78 05/07/2024 10:42 AM EDT Temperature - - Respiratory Rate - - Oxygen Saturation - - Inhaled Oxygen Concentration - - Weight - - Height - - Body Mass Index - - documented in this encounter Progress Notes * Amilcar Chan MD - 05/07/2024 11:00 AM EDT Images from the original note were not included. Summary of Procedure(s): Site: right nasal ala Tumor Type: Basal Cell Carcinoma nodular infiltrative Stages to clear tumor: 1 Repair: full-thickness skin graft Images: The patient was asked to call with any issues and is aware that I am available 25/02 should questions arise. Amilcar Chan MD PhD Mohs Micrographic Surgery and Dermatologic Oncology Department of Dermatology Please note that I have reviewed the preoperative checklist from today's nursing visit including relevant social history and medications. I have reviewed the preoperative photos if available and the biopsy report. VITAL SIGNS: BP 119/75 (BP Location (NBP): Right arm, Patient Position: Sitting) Pulse 78 PHYSICAL EXAMINATION: General: patient is awake, alert, oriented and in no acute distress. Skin: Focused examination of surgical site(s) performed which shows a well healed biopsy site with surrounding poorly defined pearly plaque. PHYSICIAN REVIEW OF REPORTS, RECORDS, IMAGES: 1) The accompanying pathology report(s) associated with aforementioned biopsy slide(s) were/was also reviewed. Assessment: Chandrika Casanova is a 58 y.o. female presenting for: 1. Biopsy-proven basal cell carcinoma nodular located on the right nasal ala. Plan: 1. Findings from the biopsy report, today's clinical exam, and other pertinent details were reviewed with patient today. All questions were answered. 2. Discussed treatment options based on the above findings. We recommended Mohs micrographic surgery for treatment of this tumor. Mohs micrographic surgery was indicated due to patient, site and/or tumor characteristics (see operative report for specific indication). 3. We discussed risks, benefits, and alternative treatment options to the Mohs micrographic surgeryprocedure and pertinent information including but not limited to the following: Risks include bleeding, infection, scar, recurrence, incomplete tumor removal or inability to cure with surgery alone if the tumor features are more aggressive than the initial pathology indicates. Occasionally, additional adjuvant treatments may be recommended. Additional risks include large wound, prolonged wound and healing, pain, swelling, bruising, increased appearance of vessels or worsening erythema of baseline skin; more rarely risks include damage to underlying structures such as nerves, cartilage, or muscle which could lead to temporary or permanent loss of sensation or motor function. Benefit is precise tumor removal If reconstruction is performed, it is specific to the patient and defect. Discussed that the shape, size, depth of the wound is often not known until the tumor is cleared and thus the reconstruction options are sometimes not known until after tumor clearance. Occasionally,referrals to other providers may be recommended for reconstruction based on patient preference and need. Reviewed the pros and cons of common reconstructions used for this tumor type, size, and location, and that reconstruction may lead to change in appearance. Natural history of scar was discussed, including that the scar will continue to mature for 1-2 years. Recommended avoidance of special ointments or scar creams, and avoidance of direct sun exposure to the scar for optimal recovery. Reviewed that there are some aspects of cosmesis that are dependent on patient's characteristics such as age, skin laxity/texture factors, inflammatory skin diseases such as rosacea, prior surgery/radiation, degree of actinic damage, smoking status, strength of the patient's immune system, diligentwound care, medications, and genetics. Having Mohs surgery may lead to physical limitations for optimal healing, such as restricted physical activity and heavy lifting. 4. Signs and symptoms of skin cancer reviewed. Patient to report any new, changing, or symptomatic lesions and follow up with his or her organizational development consultant or other skin provider. 5. Discussed avoiding direct sun exposure to scars for best cosmetic result. Note initiated by DELMA Garcia LPN has performed the documentation for this encounter in the presence of and acting as a scribe for Dr. Mary Nash performed the above scribed service and agree with the accuracy of the documentation in this encounter. Reviewed and signed by: Amilcar Chan Dermatology [facility] * Amilcar Chan MD - 05/07/2024 11:00 AM EDT Mohs micrographic Surgery Operative Report Patient name: Chandrika Casanova : 1965 Date: 05/07/2024 Staff Surgeon and Pathologist: Amilcar Chan MD PhD Nursing/Class C Truck Driver(s): Ángela Carlos RN, Alexandria Montiel COMPENSATION SPECIALIST, Sunita Torres LPN, Nba Estrada COMPENSATION SPECIALIST, Dasia Molina SENIOR HYDROGEOLOGIST, Lois Moralez HOME SECURITY PROFESSIONAL, Anila Casillas SENIOR HYDROGEOLOGIST, Maris Sen SENIOR HYDROGEOLOGIST Bus Greaser (s): Maris Ayala, Adeola Betancourt, Nba Estrada CMA Pre-operative diagnosis: Basal Cell Carcinoma nodular infiltrative Post-operative diagnosis: Basal Cell Carcinoma nodular infiltrative Location/Site: right nasal ala Procedure: Mohs micrographic surgery Indication(s) for Mohs micrographic surgery: Anatomic location for tissue conservation Stages: 1 Preoperative size of tumor: 0.7 x 0.6 cm Stage I The nature and purpose of the procedure, associated risks, possible consequences and complications,and alternative forms of treatment were explained in detail. We reviewed the possible repairs basedon the clinical appearance of tumor but discussed that often the repair options may not be known until the tumor has edna extirpated. Informed consent and permission to take photographs were obtained. The site was confirmed with the patient/authorized surgical sales representative/referring physician and/or a photograph form time of biopsy. A pre-operative time-out (procedural pause) was conducted with no unresolved discrepancies noted. Local anesthesia was obtained with 1% lidocaine with 1:100,000 epinephrine. The surgical site was prepped and draped in the usual sterile manner. A 1-2 mm margin was excised around clinically evident tumor as a complete layer. Hemostasis was achieved by electrocoagulation. The excised tissue was oriented and divided into 1 sections, chromacoded, and submitted for frozen sections. The patient tolerated the procedure well and without complications. On my personal microscopic evaluation of the frozen sections, no residual tumor was identified on the deep or outer border of the sections. The final size of the defect after complete tumor removal was 1.2 x 1.0 cm, extending to level of fibrofatty tissue. Amilcar Chan MD PhD Mohs Micrographic Surgery and Dermatologic Oncology Department of Dermatology [address] [place] [address] OPERATIVE REPORT (REPAIR) Patient Name: Chandrika Casanova Age: 58 y.o. : 1965 Date: 05/07/2024 Staff Surgeon: Amilcar Chan MD PhD Assistants: Anila Casillas LPN, Janneth Shipley MD Diagnosis: Status post Mohs micrographic surgery defect/wound Site: right nasal ala Final Defect Size prior to repair: 1.2 x 1.0 cm Donor site: left preauricular INDICATION: repair and sabianism of anatomy/function PROCEDURE: Full-thickness skin graft A graft was chosen as repair after discussing various repair options and pros and cons of those. Anesthesia with 1% lidocaine with 1:100,000 epinephrine and another sterile prep were performed. To avoid anatomical distortion, a template was made of the defect, and a full-thickness skin graft was carefully planned and harvested from the left preauricular. The graft was defatted and trimmed to fit the defect. After hemostasis was obtained with electrocoagulation, the graft was sutured into place with 5-0 prolene skin sutures. The donor area was converted to a fusiform defect. The deep tissues were apposed and sutured with 4.0 Monocryl sutures and the epidermal edges were approximated with 5-0and 6-0 prolene running and/or interrupted sutures . Final graft size: 1.2 x 1.0 cm. Estimated blood loss: Minimal. Complications: None. Wound care: Routine. Patient verbalized no questions at this time. Preoperative medications: None Post-operative medications: doxycycline PO BID 100mg for 5 days Follow-up: in 10-14 days for a suture removal Total local anesthesia with 1% lidocaine with 1:100,000 epinephrine used: 12cc Amilcar Chan MD PhD Mohs Micrographic Surgery and Dermatologic Oncology Department of Dermatology [address] [place], [place] [id number] Note initiated by DELMA Garcia LPN has performed the documentation for this encounter in the presence of and acting as a scribe for Dr. Chan I performed the above scribed service and agree with the accuracy of the documentation in this encounter. Reviewed and signed by: Amilcar Chan Dermatology [facility] documented in this encounter Plan of Treatment Upcoming Encounters Date Type Department Care Team (Latest Contact Info) Description 08/25/2024 8:10 AM EST Hospital Encounter Outpatient [place] [phone] Marvin Ash MD [facility] [place] [address] 08/25/2024 8:10 AM EST - 08/25/2024 9:30 AM EST Surgery Outpatient [place] [phone] Marvin Ash MD [facility] [place] [address] NEUROPLASTY &/OR TRANSPOSITION, ULNAR NERVE AT ELBOW (WRVU 7.26) 08/25/2024 9:40 AM EST Office Visit Dermatology at [address] [address] Gary Combs MD [facility] DR [address] [place] [address] 09/10/2024 10:30 AM EST Office [place] [phone] Tess Florez PA [facility] ORTHOPAEDIC SURGERY [place], [place] [id number] Scheduled Procedures Name Priority Associated Diagnoses Date/Ti [...] nerve documented in this encounter Care Teams Customer Development Manager Relationship Specialty Start Date End Date Genie Abdullahi MD [address] [place] [address] [address] [place] [address] PCP - General 02/23/11 documented as of this encounter
--- OUTSIDE RECORDS SUMMARY | 2024-07-17 08:23 | XMS_ITS | Encounter Summary ---
Author Organization [facility] [place] [address] Care Team Providers Care Electron Beam Operator Name Role Phone Genie Abdullahi MD Primary Care Provider [phone] Reason for Visit * Reason Comments Skin Lesion Encounter Details Date Type Department Care Team (Late st Contact Info) Description 03/26/2024 10:45 AM EDT Office Visit Dermatology at [facility] [address] [place] [address] Felicitas Medina MD [facility] [place] [address] Basal cell carcinoma of nose Social History Tobacco Use Types Packs/Day Years [...] as of this encounter Progress Notes * Felicitas Medina MD - 03/26/2024 10:45 AM EDT Images from the original note were not included. DEPARTMENT OF DERMATOLOGY Medical Dermatology Clinic Provider: Felicitas Medina MD Patient's preferred name Chandrika Preferred contact method for results [x]Phone []myD-H []Letter Detailed phone message OK? Yes Are there any other people with whom we may discuss your care? , Rivera Casanova Past Medical History Date, location, treatment Melanoma N Dysplastic nevi N SCC N BCC N AKs N UV Exposure & Protection + history of tanning bed use Other relevant past medical history + Type II Diabetes Family History Details Melanoma Unknown NMSC Unknown Other relevant family history Social History Occupation: Hobbies: Other: Pre-Procedure Questions Details Allergy to lidocaine, epinephrine, Dermabond, chlorhexidine, or adhesives Bleeding disorder or blood thinners ASA 81 mg Implanted devices (Pacemaker, defibrillator, deep brain stimulator, cochlear implant) Amoxicillin prior to dental procedures History of Present Illness: Chandrika Casanova is a 58 y.o. Patient returns to clinic today for a focused exam with the following concerns: - Bleeding spot right nasal sidewall - Non healing for 2-3 months Last visit at Dermatology: 01/16/2024 Last visit with this provider: Visit date not found Medications: Reviewed in eD-H Allergies: Reviewed in eD-H Skin Examination: Neck-up skin examination of the scalp, hair, face, ears, and neck was normal with the exception of the findings below Assessment/Plan # BCC: right nasal ala 4mm crusted papule -Reviewed if positive would refer to MOHS Procedure: Skin biopsy by shave technique Location: right nasal ala Discussed indications for procedure and expectations including risks and benefits. Verbal consent obtained. Skin prep with alcohol. Local anesthesia with 1% lidocaine, 1/100,000 epinephrine. A sampleof the lesion was removed by shave technique to the level of the dermis and submitted to Pathology.Hemostasis obtained. There were no complications; the patient tolerated the procedure well. The wound was dressed. Post-procedure expectations, wound care and activity restrictions were reviewed. Follow-up based on pathology results. Figure 1 Photo(s) taken and charted with patient's verbal consent. Other: N/A RTC: pending pathology []Note routed to nursing secretary []Recall placed in scheduling system []Appointment scheduled at checkout Scribe attestation: Jordyn Real LPN has performed the documentation for this encounter in the presence of and acting as a scribe for Felicitas Medina MD. I performed the above scribed service and agree with the accuracy of the documentation in this encounter. Reviewed and signed by: Felicitas Medina MD Dermatology [facility] * Felicitas Medina MD - 03/26/2024 10:45 AM EDT Final Diagnosis A. Nasal Ala, Right, Skin Shave biopsy: - Basal cell carcinoma, nodular and infiltrating patterns, transected at the base BCC on the right nasal ala, recommend Mohs Hi Sima, can you please let the patient know? Thanks! documented in this encounter Plan of Treatment Upcoming Encounters Date Type Department Care Team (Latest Contact Info) Description 08/25/2024 8:10 AM EST Hospital Encounter Outpatient [place] [phone] Marvin Ash MD [facility] [place] [address] 08/25/2024 8:10 AM EST - 08/25/2024 9:30 AM EST Surgery Outpatient [place] [phone] Marvin Ash MD [facility] [place] [address] NEUROPLASTY &/OR TRANSPOSITION, ULNAR NERVE AT ELBOW (WRVU 7.26) 08/25/2024 9:40 AM EST Office Visit Dermatology at [address] [address] Gary Combs MD [facility] [address] [place] [address] 09/10/2024 10:30 AM EST Office [place] [phone] Tess Florez PA [facility] [place] [address] Scheduled Procedures Name Priority Associated Diagnoses Date/Ti [...] Name Priority Date/Time Associated Diagnosis Comments SURGICAL PATHOLOGY, DERMATOLOGY Routine 03/26/2024 10:44 AM EDT Basal cell carcinoma of nose documented in this encounter Results * (ABNORMAL) Surgical Pathology, Dermatology (03/26/2024 10:44 AM EDT) Case Report Surgical Pathology Report ? Case: [id number] ? Authorizing Provider: ??Felicitas Medina MD ? Collected: ? 03/26/2024 1044 ? Ordering Location: ? Dermatology at [facility] Received: ?03/26/2024 1332 ? Pathologist: ? Fernanda Ovalles MD ? Specimen: ?Nasal Ala, Right ? 03/30/2024 1:58 PM EDT [facility] Final Diagnosis A. Nasal Ala, Right, Skin Shave biopsy: - Basal cell carcinoma, nodular and infiltrating patterns, transected at the base 03/30/2024 1:58 PM EDT [facility] Clinical Information A. BCC: 4mm crusted papule 03/30/2024 1:58 PM EDT [facility] Gross Description A. Nasal Ala, Right. Labeled/Fixativ e: nasal ala right, formalin. Quantity/Size: Single, 0.7 x 0.5 x 0.1 cm. Tissue Description: Shave of white skin with a 0.5 x 0.4 cm red macule. Sections/Proces sing: Inked, trisected and entirely submitted in 1 cassette labeled A1. 03/30/2024 1:58 PM EDT [facility] Result Note THIS RESULT REQUIRES PHYSICIAN/FRANKLYN FOLLOW UP(A) 03/30/2024 1:58 PM EDT [facility] Skin STRUCTURE OF ALAR PART OF NASALIS MUSCLE / Unknown Non Blood Collection / Unknown 03/26/2024 10:44 AM EDT 03/26/2024 1:32 PM EDT Felicitas Medina MD PATHOLOGY/CYTOLOGY ORDERABLES [facility] [place] [address] documented in this encounter Visit Diagnoses Diagnosis Basal cell carcinoma of nose Basal cell carcinoma of skin of other and unspecified parts of face Carpal tunnel syndrome on right Carpal tunnel syndrome Cubital tunnel syndrome on right Lesion of ulnar nerve documented in this encounter Care Teams Electron Beam Operator Relationship Specialty Start Date End Date Genie Abdullahi MD [facility] [address] [place] [address] PCP - General 02/23/11 documented as of this encounter
--- OUTSIDE RECORDS SUMMARY | 2024-07-17 08:23 | XMS_ITS | Encounter Summary ---
Author Organization [facility] Address [facility] [place] [address] Care Team Providers Care Epic Ambulatory Analyst Name Role Phone Genie Abdullahi MD Primary Care Provider [phone] Reason for Visit * Consultation (Routine) - Authorized Specialty Diagnoses / Procedures Referred By Gina terrell Referred To Contact Dermatology Diagnoses Skin lesion of face Genie Abdullahi MD [facility] [address] [address] [facility] Dermatology [address] [place] [address] Referral ID Status Reason Start Date Expiration Date Visits Requested Visits Authorized [id number] Authorized Consult, Test & Treat PCP Updated and/or Approved 12/04/2023 12/03/2024 6 6 Encounter Details Date Type Department Care Team (Late st Contact Info) Description 01/16/2024 9:20 AM EDT Office Visit Dermatology at [facility] [address] [place] [address] Gary Combs MD [facility] [place] [address] Lentigo Social History Tobacco Use Types Packs/Day Years [...] as of this encounter Progress Notes * Gary Combs MD - 01/16/2024 9:20 AM EDT Images from the original note were not included. DEPARTMENT OF DERMATOLOGY Medical Dermatology Clinic Note Provider: Gary Combs MD Patient's preferred name Chandrika Preferred contact [...] Chandrika Casanova is a 58 y.o. Patient is referred to the clinic at the request of Genie Abdullahi for a concerning spot on the right cheek. - Present for the past 5 years, burning for the past 2 years. Possibly growing in size. Review of Systems: General: Feeling well. Skin: No other skin concerns. Medications: Reviewed in eD-H Allergies: Reviewed in eD-H Skin Examination: Focused skin examination of the right cheek was normal with the exception of the findings below. Assessment/Plan #. Favor Lentigo - 1.5 x 1.4 cm frazier to brown patch on the right cheek. - Discussed benign appearance and provided reassurance. - Discussed options including continue to clinically monitor vs performing biopsy of lesion. - Joint decision to take a photo today and follow up in 3 months. - Advised to watch for anything new, changing (e.g., color or shape), or symptomatic (e.g., easy bleeding, tenderness, pain). Figure 1 Photo(s) taken and charted with patient's verbal consent. Other: N/A RTC: 3 months to recheck lentigo on right cheek, sooner if needed. Offered a FSE at that time, patient will consider at scheduling. []Note routed to national secretary []Recall placed in scheduling system [x]Appointment scheduled at checkout Scribe attestation: Altagracia Thomson LPN has performed the documentation for this encounter in the presence of and acting as a scribe for Gary Combs MD. I performed the above scribed service and agree with the accuracy of the documentation in this encounter. Reviewed and signed by: Gary Combs MD Dermatology [facility] Patient seen and evaluated with staff wardrobe image consultant: Felicitas Medina MD Department of Dermatology [facility] * Felicitas Medina MD - 01/16/2024 9:20 AM EDT I directly supervised Gary Combs MD in the care of this Dermatology patient in person. I saw and evaluated this patient with Gary Combs MD. Gary Combs MD presented the history and physical exam details to me, then we saw the patient together, and I confirmed these findings. I agree with details as written. My physical examination confirms Gary Combs MD's findings. The assessment and plan were formulated in discussion with me at the time of visit, and I agree with them as documented. Felicitas Medina MD Staff Hand Pattern Marker Department of Dermatology [facility] documented in this encounter Plan of Treatment Upcoming Encounters Date Type Department Care Team (Latest Contact Info) Description 08/25/2024 8:10 AM EST Hospital Encounter [place] [address] Marvin Ash MD [facility] [place] [address] 08/25/2024 8:10 AM EST - 08/25/2024 9:30 AM EST Surgery [place] [address] Marvin Ash MD [facility] [place] [address] NEUROPLASTY &/OR TRANSPOSITION, ULNAR NERVE AT ELBOW (WRVU 7.26) 08/25/2024 9:40 AM EST Office Visit Dermatology at [place] [address] [place] [address] Gary Combs MD [facility] [address] 09/10/2024 10:30 AM EST Office [place] [address] Tess Florez PA [facility] [place] [address] Scheduled Procedures Name Priority Associated Diagnoses Date/Ti [...] as of this encounter Visit Diagnoses Diagnosis Lentigo Other dyschromia Carpal tunnel syndrome on right Carpal tunnel syndrome Cubital tunnel syndrome on right Lesion of ulnar nerve documented in this encounter Care Teams Epic Ambulatory Analyst Relationship Specialty Start Date End Date Genie Abdullahi MD [facility] [address] [place] [address] PCP - General 02/23/11 documented as of this encounter
--- OUTSIDE RECORDS SUMMARY | 2024-07-17 08:23 | XMS_ITS | Encounter Summary ---
[place] [address] Care Team Providers Care Vest Baster Name Role Phone Genie Abdullahi MD Primary Care Provider [phone] Encounter Details Date Type Department Care Team (Latest Contact Info) Description 05/18/2024 Travel Social History Tobacco Use Types Packs/Day [...] AM EST Hospital Encounter [place]patient [place] [address] Marvin Ash MD [facility] [place] [address] 08/25/2024 8:10 AM EST - 08/25/2024 9:30 AM EST Surgery [place]patient [place] [phone] Marvin Ash MD [facility] [place] [address] NEUROPLASTY &/OR TRANSPOSITION, ULNAR NERVE AT ELBOW (WRVU 7.26) 08/25/2024 9:40 AM EST Office Visit Dermatology at [address] [place] [address] Gary Combs MD [facility] [place] [address] 09/10/2024 10:30 AM EST Office [place] [address] Tess Florez PA [facility] [place] [address] Scheduled Procedures Name Priority Associated Diagnoses Date/Ti [...] on filedocumented in this encounter Care Teams Vest Baster Relationship Specialty Start Date End Date Genie Abdullahi MD [address] [place] [address] PCP - General 02/23/11 documented as of this encounter
--- OUTSIDE RECORDS SUMMARY | 2024-07-17 08:23 | XMS_ITS | Encounter Summary ---
[place] [address] Care Team Providers Care Financial Cost Analyst Name Role Phone Genie Abdullahi MD Primary Care Provider [phone] Encounter Details Date Type Department Care Team (Latest Contact Info) Description 06/09/2024 Travel Social History Tobacco Use Types Packs/Day [...] AM EST Hospital Encounter Outpatient [place] [address] Marvin Ash MD [facility] [place] [address] 08/25/2024 8:10 AM EST - 08/25/2024 9:30 AM EST Surgery Outpatient [place] [phone] Marvin Ash MD [facility] [place] [address] NEUROPLASTY &/OR TRANSPOSITION, ULNAR NERVE AT ELBOW (WRVU 7.26) 08/25/2024 9:40 AM EST Office Visit Dermatology at [address] [place] [address] Gary Combs MD [facility] [place] [address] 09/10/2024 10:30 AM EST Office [place] [address] Tess Florez PA [facility] [place] [address] Scheduled Procedures Name Priority Associated Diagnoses Date/Ti [...] on filedocumented in this encounter Care Teams Financial Cost Analyst Relationship Specialty Start Date End Date Genie Abdullahi MD [address] [place] [address] PCP - General 02/23/11 documented as of this encounter
--- OUTSIDE RECORDS SUMMARY | 2024-07-17 08:23 | XMS_ITS | Encounter Summary ---
Author Organization [place] [id number] Care Team Providers Care Food Safety Manager Name Role Phone Genie Abdullahi MD Primary Care Provider [phone] Reason for Referral * Consultation (Routine) - Authorized Specialty Diagnoses / Procedures Referred By Gina terrell Referred To Contact Orthopaedics Diagnoses Carpal tunnel syndrome, right upper limb Genie Abdullahi MD [address] [place] [address] [facility] [address] [place] [phone] Referral ID Status Reason Start Date Expiration Date Visits Requested Visits Authorized [id number] Authorized Consult, Test & Treat PCP Updated and/or Approved 01/22/2024 01/21/2025 6 6 Encounter Details Date Type Department Care Team (Latest Contact Info) Description 02/04/2024 Transcribe Orders eDH Incoming Referrals [phone] Genie Abdullahi MD [address] [place] [address] Carpal tunnel syndrome, right upper limb Social History Tobacco Use Types Packs/Day Years [...] AM EST Hospital Encounter [place] [address] Marvin Ash MD [facility] [place] [address] 08/25/2024 8:10 AM EST - 08/25/2024 9:30 AM EST Surgery [place] [address] Marvin Ash MD [facility] [place] [address] NEUROPLASTY &/OR TRANSPOSITION, ULNAR NERVE AT ELBOW (WRVU 7.26) 08/25/2024 9:40 AM EST Office Visit Dermatology at [address] [address] Gary Combs MD [facility] DR [address] [place] [address] 09/10/2024 10:30 AM EST Office [place] [address] Tess Florez PA [facility] [place] [address] Scheduled Procedures Name Priority Associated Diagnoses Date/Ti [...] Priority Associated Diagnoses Order Schedule Referral to Orthopaedics Outpatient Referral Routine Carpal tunnel syndrome, right upper limb Ordered: 02/04/2024 documented as of this encounter Visit Diagnoses Diagnosis Carpal tunnel syndrome, right upper limb Carpal tunnel syndrome on right Carpal tunnel syndrome Cubital tunnel syndrome on right Lesion of ulnar nerve documented in this encounter Care Teams Food Safety Manager Relationship Specialty Start Date End Date Genie Abdullahi MD [address] [place] [address] PCP - General 02/23/11 documented as of this encounter
--- OUTSIDE RECORDS SUMMARY | 2024-07-17 08:23 | XMS_ITS | Encounter Summary ---
Author Organization [facility] [place] [address] Care Team Providers Care Telephone Repairer Name Role Phone Genie Abdullahi MD Primary Care Provider [phone] Encounter Details Date Type Department Care Team (Late st Contact Info) Description 05/20/2024 External [place] [address] Jose Mcdermott MD [facility] [place] [address] Social History Tobacco Use Types Packs/Day Years [...] AM EST Hospital Encounter Outpatient [place] [phone] Marvin Ash MD [facility] [place] [address] 08/25/2024 8:10 AM EST - 08/25/2024 9:30 AM EST Surgery Outpatient [place] [address] Marvin Ash MD [facility] [place] [address] NEUROPLASTY &/OR TRANSPOSITION, ULNAR NERVE AT ELBOW (WRVU 7.26) 08/25/2024 9:40 AM EST Office Visit Dermatology at [place] [address] [place] [address] Gary Combs MD [facility] [place] [address] 09/10/2024 10:30 AM EST Office [place] [address] Tess Florez PA [facility] [place] [address] Scheduled Procedures Name Priority Associated Diagnoses Date/Ti [...] EMG SCAN Routine 05/19/2024 2:03 PM EDT documented in this encounter Results * Scan Doc: EMG (05/19/2024 2:03 PM EDT) Jose Mcdermott MD MEDIA MGR SCAN EXT O RDR/RSLT documented in this encounter Visit Diagnoses Not on filedocumented in this encounter Care Teams Telephone Repairer Relationship Specialty Start Date End Date Genie Abdullahi MD [facility] [address] [place] [address] PCP - General 02/23/11 documented as of this encounter
--- OUTSIDE RECORDS SUMMARY | 2024-07-17 08:23 | XMS_ITS | Encounter Summary ---
[place] [address] Care Team Providers Care Cigar Head Pegger Name Role Phone Genie Abdullahi MD Primary Care Provider [phone] Encounter Details Date Type Department Care Team (Latest Contact Info) Description 01/11/2024 Travel Social History Tobacco Use Types Packs/Day [...] AM EST Hospital Encounter Outpatient [place] [address] Marvin Ash MD [facility] [place] [address] 08/25/2024 8:10 AM EST - 08/25/2024 9:30 AM EST Surgery Outpatient [place] [address] Marvin Ash MD [facility] [place] [address] NEUROPLASTY &/OR TRANSPOSITION, ULNAR NERVE AT ELBOW (WRVU 7.26) 08/25/2024 9:40 AM EST Office Visit Dermatology at [address] [place] [address] Gary Combs MD [facility] [place] [address] 09/10/2024 10:30 AM EST Office [place] [address] Tess Florez PA [facility] [place] [address] Scheduled Procedures Name Priority Associated Diagnoses Date/Ti [...] on filedocumented in this encounter Care Teams Cigar Head Pegger Relationship Specialty Start Date End Date Genie Abdullahi MD [address] [place] [address] PCP - General 02/23/11 documented as of this encounter
--- OUTSIDE RECORDS SUMMARY | 2024-07-17 08:23 | XMS_ITS | Encounter Summary ---
Author Organization [facility] [place] [address] Care Team Providers Care Adult Secondary Education Instructor Name Role Phone Genie Abdullahi MD Primary Care Provider [phone] Reason for Visit * Reason Comments Follow-up Rt total ankle arthr oplasty Encounter Details Date Type Department Care Team (Latest Contact Info) Description 05/08/2023 10:30 AM EDT Office [place] [address] Radha Omalley MD [facility] [place] [address] Post-traumatic osteoarthritis of right ankle Social History Tobacco Use Types Packs/Day Years [...] - Inhaled Oxygen Concentration - - Weight 81.6 kg (180 lb) 05/08/2023 10:17 AM EDT Height 170.2 cm (5' 7) 05/08/2023 10:17 AM EDT Body Mass Index 28.19 05/08/2023 10:17 AM EDT documented in this encounter Progress Notes * Radha Omalley MD - 05/08/2023 10:30 AM EDT PATIENT NAME: Chandrika Casanova AGE: 57 y.o. MR#: [id number] DATE OF VISIT: 05/08/2023 STAFF: Radha Omalley MD FOLLOW UP FOR: Principal Procedures on 05/08/2022 1. Right total ankle arthroplasty with Inbone II system 2. Right fibular hardware removal 3. Right tibial hardware removal HISTORY OF PRESENT ILLNESS: Ms. Casanova is a 57 y.o. female who comes into clinic today for follow up of the above procedure. She overall feels that she is doing quite well. She does have some discomfort in her midfoot at times when she is increasing her walking. She and I reviewed her shoewear as well as stretching exercises. She reports that her pain is definitely much better than it was prior to surgery. Medications and Allergies were reviewed in eD-H PAST MEDICAL HX: Past Medical History: Diagnosis Date Arthritis Back pain 04/09/2013 Diabetes mellitus Migraine Patient Active Problem List Diagnosis Code Diabetes mellitus type 1.5, managed as type 2 E13.9 Nevus D22.9 Low back pain M54.50 Lumbar herniated disc M51.26 PAST SURGICAL HX: Past Surgical History: Procedure Laterality Date APPENDECTOMY JOINT REPLACEMENT PRO ARTHROPLASTY ANKLE WITH IMPLANT Right 05/10/2022 TOTAL ANKLE ARTHROPLASTY (WRVU 14.42) performed by Radha Omalley MD at [facility] OSC PRO LAMINOTOMY, LUMBAR DISK, 1 INTRSP 08/24/2013 LAMINOTOMY, DECOMPRESSION, FORAMINOTOMY, LUMBAR performed by Sal Phan MD at [facility] MAIN OR PRO MICROSURG TECHNIQUES, REQ OPER MICROSCOPE 08/24/2013 MICROSCOPE USE performed by Sal Phan MD at [facility] MAIN OR PRO REMOVAL DEEP IMPLANT Right 05/10/2022 REMOVAL OF IMPLANT, DEEP, ANKLE (WRVU 5.96) performed by Radha Omalley MD at [facility] OSC TONSILLECTOMY FAMILY HX: Family History Problem Relation Age of Onset Cancer Mother High Blood Pressure Father Cancer Sister SOCIAL HX: Social History Occupational History Not on file Tobacco Use Smoking status: Never Smokeless tobacco: Never Vaping Use Vaping Use: Never used Substance and Sexual Activity Alcohol use: Not Currently Comment: once a year wine coolers Drug use: No Sexual activity: Yes Partners: Male 05/08/2023 7:57 AM General Health, Prior Treatments, PreExisting Condition, Health Habits, About You PROMIS-10 General Health Good PROMIS-10 Quality of Life Good PROMIS-10 Physical Health Good PROMIS-10 Mental Health Good PROMIS-10 Social Activity Fair PROMIS-10 Everyday Activities Mostly PROMIS-10 Pain 1 PROMIS-10 Fatigue Mild PROMIS-10 Social Roles Good PROMIS-10 Anxious or Depressed Rarely PROMIS PHYSICAL SCORE (range 16-68) 47.7 PROMIS MENTAL SCORE (range 21-68) 43.5 09/06/2021 10:13 AM Orthope[facility]ics [facility] Response HOOS JR Scores 70.43 09/06/2021 10:13 AM Spine [facility] Response HOOS JR Scores 70.43 PHYSICAL EXAM: Ms. Casanova is a 57 y.o. female General appearance: in no acute distress, alert, cooperative Psych: cooperative with exam, appropriate Head: normocephalic, atraumatic EENT: EOMI grossly intact Neck: supple, trachea midline Cardiac: regular rate and rhythm by peripheral pulse Lungs: no extra work of breathing Musculoskeletal: Anterior incision over the tibiotalar joint is slightly darkened still but well- healed and there isno tenderness to palpation. She has no significant swelling about the ankle joint. She has dorsiflexion to 12 degrees past neutral and plantarflexion to 30 degrees. Sensation is intact to light touchthroughout the foot. The foot is warm and well-perfused. DIAGNOSTIC STUDIES: Personal review of right ankle films show hardware is in place with no evidenceof hardware loosening or loss of fixation. The gutters are well maintained. The mortise is congruent. There is no evidence of hardware subsidence. ASSESSMENT: Status post right total ankle arthroplasty with hardware removal, doing well. PLAN: The patient is doing quite well following her right total ankle arthroplasty. I encouraged her to continue to advance her activities. I will see her back in clinic at her 2-year anniversary. Saqibcox northmaria esther obtain weightbearing right ankle films at that visit. The patient expressed agreement with and understanding of this plan of care. The patient understands to contact us if they have any other questions or concerns. The above documentation was completed using [employer] voice recognition software. Patient was seen and discussed with Dr. Lyssa Omalley MD Department of Orthopaedics [facility] Pager: [phone] Dillon Weller MD Orthopaedic Surgery Pager: [phone] documented in this encounter Plan of Treatment Upcoming Encounters Date Type Department Care Team (Latest Contact Info) Description 08/25/2024 8:10 AM EST Hospital Encounter [place] [address] Marvin Ash MD [facility] [place] [address] 08/25/2024 8:10 AM EST - 08/25/2024 9:30 AM EST Surgery [place] [address] Marvin Ash MD [facility] [place] [address] NEUROPLASTY &/OR TRANSPOSITION, ULNAR NERVE AT ELBOW (WRVU 7.26) 08/25/2024 9:40 AM EST Office Visit Dermatology at [address] [address] Gary Combs MD [facility] DR [address] [place] [address] 09/10/2024 10:30 AM EST Office [place] [address] Tess Florez PA [facility] [place] [address] Scheduled Procedures Name Priority Associated Diagnoses Date/Ti me NEUROPLASTY &/OR TRANSPOSITION, ULNAR NERVE AT ELBOW (WRVU 7.26) Carpal tunnel syndrome on right Cubital tunnel syndrome on right 08/25/2024 8:10 AM EST ENDOSCOPY WRIST W/ RELEASE TRANSVERSE CARPAL LIGAMENT (WRVU 6.39) Carpal tunnel syndrome on right Cubital tunnel syndrome on right 08/25/2024 8:10 AM EST documented as of this encounter Visit Diagnoses Diagnosis Post-traumatic osteoarthritis of right ankle Carpal tunnel syndrome on right Carpal tunnel syndrome Cubital tunnel syndrome on right Lesion of ulnar nerve documented in this encounter Care Teams Adult Secondary Education Instructor Relationship Specialty Start Date End Date Genie Abdullahi MD [address] [place] [address] PCP - General 02/23/11 documented as of this encounter
--- OUTSIDE RECORDS SUMMARY | 2024-07-17 08:23 | XMS_ITS | Encounter Summary ---
Author Organization [facility] Address [address] [place] [address] Care Team Providers Care Bleach Plant Operator Name Role Phone Unavailable Primary Care Provider Unavailabl e Encounter Details Date Type Department Care Team (Late st Contact Info) Description 03/10/2001 Results Only [facility] [address] [place] [address] Luci Lobo, FLOR Social History Tobacco Use [...] Priority Date/Time Associated Diagnosis Comments CYTOPATHOLOGY Routine 03/10/2001 0:00 EDT documented in this encounter Results * CYTOPATHOLOGY (03/10/2001 0:00 EDT) Pathology Report: CYTOPATHOLOGY REPORT Reports generated via electronic interface contain original data; however they are lacking the format of the original report. Caution should be taken when reading/interpreti ng unformatted reports. Name: ? CHANDRIKA MERAZ ? Accession #: ? [id number] : ? 1965 (Age: 35) ??F ?Collect Date: ? 03/10/2001 Location: ? [facility] ? Receive Date: ? 03/11/2001 Provider: ?LUCI LOBO RELASTER Copy to: ? Specimen/Source: ?ThinPrep Pap Test, Cervix/Endocervix Last Menstrual Period: ? 03/02/01 ? SPECIMEN ADEQUACY ? Satisfactory for evaluation. GENERAL CATEGORIZATION ? Within Normal Limits ? Document reviewed and electronically signed by: ? Bianka Villegas, ??SCT(ASCP) ? Report Date: ??03/17/2001 13:52 End of Report KYLER CRUZ 03/10/2001 03/11/2001 us Luci Lobo RELASTER PATHOLOGY ORDERABLES Final Re sult KYLER CRUZ [address] [place] [address] documented in this encounter Visit Diagnoses Not on filedocumented in this encounter
--- OUTSIDE RECORDS SUMMARY | 2024-07-17 08:23 | XMS_ITS | Encounter Summary ---
Author Organization [facility] [address] Care Team Providers Care Bean Viner Name Role Phone Genie Abdullahi MD Primary Care Provider [phone] Encounter Details Date Type Department Care Team (Late st Contact Info) Description 05/07/2023 Orders [place] [phone] Félix Prince PA [facility] [place] [address] Post-traumatic osteoarthritis of right ankle; H/O total ankle replacement, right Social History Tobacco Use Types Packs/Day [...] AM EST Hospital Encounter Outpatient [place] [address] Marvin Ash MD [facility] [place] [address] 08/25/2024 8:10 AM EST - 08/25/2024 9:30 AM EST Surgery Outpatient [place] [address] Marvin Ash MD [facility] [place] [address] NEUROPLASTY &/OR TRANSPOSITION, ULNAR NERVE AT ELBOW (WRVU 7.26) 08/25/2024 9:40 AM EST Office Visit Dermatology at [facility] [address] [place] [address] Gary Combs MD [facility] [place] [address] 09/10/2024 10:30 AM EST Office [place] [address]1000 Tess Florez PA [facility] [place] [address] Scheduled Procedures Name Priority Associated Diagnoses Date/Ti me NEUROPLASTY &/OR TRANSPOSITION, ULNAR NERVE AT ELBOW (WRVU 7.26) Carpal tunnel syndrome on right Cubital tunnel syndrome on right 08/25/2024 8:10 AM EST ENDOSCOPY WRIST W/ RELEASE TRANSVERSE CARPAL LIGAMENT (WRVU 6.39) Carpal tunnel syndrome on right Cubital tunnel syndrome on right 08/25/2024 8:10 AM EST documented as of this encounter Results * XR Ankle Min 3 views Right (Generic) (05/08/2023 9:44 AM EDT) Anatomical Region Laterality Modality Ankle Right Digital Radiogra phy Impressions 05/08/2023 12:37 PM EDT Uncomplicated right total ankle arthroplasty. Thank you for letting us participate in the care of this patient. ??If you are a health care provider and have any questions regarding this report, please contact the number below. ??For patients who have questions please contact the health animal caretaker supervisor that requested your imaging first. ? Electronically signed by: TANISHA SANTORO MD, [facility] ([phone]), at 05/08/2023 12:37 PM Narrative 05/08/2023 12:37 PM EDT EXAMINATION: XR ANKLE MIN 3 VIEWS RIGHT (GENERIC) CLINICAL HISTORY: s/p R TAA, Please perform WB TECHNIQUE: 3 views RIGHT ankle COMPARISON: Radiographs 09/05/2022 FINDINGS: Status post total ankle arthroplasty with well aligned components and no periprosthetic fracture or lucency. Unchanged punctate radiodense material about the ankle. Interval healing of ghost tracks in the distal fibula creating a irregular appearance to the cortex. Diffuse osseous demineralization. Mild to moderate talonavicular joint space narrowing. Os peroneum. Soft tissue prominence/swelling persists about the ankle. Tibiotalar effusion is decreased from prior. Procedure Note Tanisha Santoro MD - 05/08/2023 EXAMINATION: XR ANKLE MIN 3 VIEWS RIGHT (GENERIC) CLINICAL HISTORY: s/p R TAA, Please perform WB TECHNIQUE: 3 views RIGHT ankle COMPARISON: Radiographs 09/05/2022 FINDINGS: Status post total ankle arthroplasty with well aligned components and no periprosthetic fracture or lucency. Unchanged punctate radiodense materialabout the ankle. Interval healing of ghost tracks in the distal fibula creatinga irregular appearance to the cortex. Diffuse osseous demineralization. Mildto moderate talonavicular joint space narrowing. Os peroneum. Soft tissue prominence/swelling persists about the ankle. Tibiotalar effusion isdecreased from prior. IMPRESSION Uncomplicated right total ankle arthroplasty. Thank you for letting us participate in the care of this patient. If youare a health care provider and have any questions regarding this report,please contact the number below. For patients who have questions please contactthe health animal caretaker supervisor that requested your imaging first. Radha Omalley MD IMG DX ORDERABLES documented in this encounter Visit Diagnoses Diagnosis Post-traumatic osteoarthritis of right ankle H/O total ankle replacement, right Post-traumatic osteoarthritis of right ankle H/O total ankle replacement, right Carpal tunnel syndrome on right Carpal tunnel syndrome Cubital tunnel syndrome on right Lesion of ulnar nerve documented in this encounter Care Teams Bean Viner Relationship Specialty Start Date End Date Genie Abdullahi MD [facility] [address] [facility] [address] [place] [address] PCP - General 02/23/11 documented as of this encounter
--- OUTSIDE RECORDS SUMMARY | 2024-07-17 08:23 | XMS_ITS | Encounter Summary ---
Author Organization [facility] Address [address] [place] [address] Care Team Providers Care Customs Brokerage Manager Name Role Phone Unavailable Primary Care Provider Unavailabl e Encounter Details Date Type Department Care Team (Late st Contact Info) Description 03/04/2000 Results Only [facility] [address] [place] [address] Luci Lobo, FLOR Social History Tobacco Use [...] Priority Date/Time Associated Diagnosis Comments CYTOPATHOLOGY Routine 03/04/2000 0:00 EDT documented in this encounter Results * CYTOPATHOLOGY (03/04/2000 0:00 EDT) Pathology Report: CYTOPATHOLOGY REPORT Reports generated via electronic interface contain original data; however they are lacking the format of the original report. Caution should be taken when reading/interpreti ng unformatted reports. Name: ? CHANDRIKA MERAZ ? Accession #: ? [id number] : ? 1965 (Age: 34) ??F ?Collect Date: ? 03/04/2000 Location: ? [facility] ? Receive Date: ? 03/05/2000 Provider: ?LUCI LOBO JET PIERCER OPERATOR Copy to: ? Specimen/Source: ?ThinPrep Pap Test, Cervix/Endocervix Last Menstrual Period: ? 02/21/00 ? SPECIMEN ADEQUACY ? Satisfactory for evaluation. GENERAL CATEGORIZATION ? Within Normal Limits ? Document reviewed and electronically signed by: ? ROSEANN Mc(ASCP) ? Report Date: ??03/07/2000 09:49 End of Report KYLER CRUZ 03/04/2000 03/05/2000 us Luci Lobo NP PATHOLOGY ORDERABLES Final Re sult KYLER CRUZ [address] [place] [address] documented in this encounter Visit Diagnoses Not on filedocumented in this encounter
--- OUTSIDE RECORDS SUMMARY | 2024-07-17 08:23 | XMS_ITS | Encounter Summary ---
Author Organization Formerly [facility], [facility] Address [facility] [place] [address] Care Team Providers Care Change Booth Attendant Name Role Phone Genie Abdullahi MD Primary Care Provider [phone] Reason for Referral * Consultation (Routine) - Closed Specialty Diagnoses / Procedures Referred By Gina t Referred To Contact Dermatology Diagnoses Basal cell carcinoma (BCC) of right ala nasi Felicitas Medina MD [facility] [address] [place] [address] Amilcar Chan MD [facility] [address] [place] [address] Referral ID Status Reason Start Date Expiration Date V isits Requested Visits Authorized [id number] Closed Consult, Test & Treat 03/31/2024 03/31/2025 1 1 Encounter Details Date Type Department Care Team (Latest Contact Info) Description 03/31/2024 Transcribe Orders Dermatology at [facility] [place] [address] [place] [address] Felicitas Medina MD [facility] [address] [place] [address] Basal cell carcinoma (BCC) of right ala [...] AM EST Hospital Encounter Outpatient [place] [phone] Marvin Ash MD [facility] [place] [address] 08/25/2024 8:10 AM EST - 08/25/2024 9:30 AM EST Surgery [place] [phone] Marvin Ash MD [facility] [place] [address] NEUROPLASTY &/OR TRANSPOSITION, ULNAR NERVE AT ELBOW (WRVU 7.26) 08/25/2024 9:40 AM EST Office Visit Dermatology at [address] [address] Gary Combs MD [facility] [address] [place] [address] 09/10/2024 10:30 AM EST Office [place] [phone] Tess Florez PA [facility] [place] [address] Scheduled Procedures Name Priority Associated Diagnoses Date/Ti [...] Schedule Referral to Dermatology Outpatient Referral Routine Basal cell carcinoma (BCC) of right ala nasi Ordered: 03/31/2024 documented as of this encounter Visit Diagnoses Diagnosis Basal cell carcinoma (BCC) of right ala nasi Carpal tunnel syndrome on right Carpal tunnel syndrome Cubital tunnel syndrome on right Lesion of ulnar nerve documented in this encounter Care Teams Change Booth Attendant Relationship Specialty Start Date End Date Genie Abdullahi MD [address] [place] [address] PCP - General 02/23/11 documented as of this encounter
--- OUTSIDE RECORDS SUMMARY | 2024-07-17 08:23 | XMS_ITS | Encounter Summary ---
Author Organization [facility] [address] Care Team Providers Care Tank Car Inspector Name Role Phone Genie Abdullahi MD Primary Care Provider [phone] Encounter Details Date Type Department Care Team (Late st Contact Info) Description 05/19/2024 2:45 PM EDT Office Visit Dermatology at [facility] [address] [place] [address] Amilcar Chan MD [facility] [place] [address] Encounter for removal of sutures Social History Tobacco Use Types Packs/Day Years [...] as of this encounter Progress Notes * Amilcar Chan MD - 05/19/2024 2:45 PM EDT Images from the original note were not included. Patient: Chandrika Casanova Date of . 1965 Today's Date: 05/19/2024 Chandrika Casanova is a 58 y.o. female here for suture removal. Exam: well healing incision and graft, no evidence of infection Photograph: Plan: 1. Sutures removed today. 2. Follow up with referring provider or quality assurance engineer for skin exams. 3. Follow up with Dr. Chan: as needed Note initiated by RODDY Dior CMA has performed the documentation for this encounter in the presence of and acting as a scribe for Dr. Chan I performed the above scribed service and agree with the accuracy of the documentation in this encounter. Reviewed and signed by: Amilcar Chan Dermatology [facility] documented in this encounter Plan of Treatment Upcoming Encounters Date Type Department Care Team (Latest Contact Info) Description 08/25/2024 8:10 AM EST Hospital Encounter [place]patient [place] [phone] Marvin Ash MD [facility] [place] [address] 08/25/2024 8:10 AM EST - 08/25/2024 9:30 AM EST Surgery [place] [phone] Marvin Ash MD [facility] [place] [address] NEUROPLASTY &/OR TRANSPOSITION, ULNAR NERVE AT ELBOW (WRVU 7.26) 08/25/2024 9:40 AM EST Office Visit Dermatology at [address] [address] Gary Combs MD [facility] [place] [address] 09/10/2024 10:30 AM EST Office [place] [address] Tess Florez PA [facility] [place] [address] Scheduled Procedures Name Priority Associated Diagnoses Date/Ti me NEUROPLASTY &/OR TRANSPOSITION, ULNAR NERVE AT ELBOW (WRVU 7.26) Carpal tunnel syndrome on right Cubital tunnel syndrome on right 08/25/2024 8:10 AM EST ENDOSCOPY WRIST W/ RELEASE TRANSVERSE CARPAL LIGAMENT (WRVU 6.39) Carpal tunnel syndrome on right Cubital tunnel syndrome on right 08/25/2024 8:10 AM EST documented as of this encounter Visit Diagnoses Diagnosis Encounter for removal of sutures Carpal tunnel syndrome on right Carpal tunnel syndrome Cubital tunnel syndrome on right Lesion of ulnar nerve documented in this encounter Care Teams Tank Car Inspector Relationship Specialty Start Date End Date Genie Abdullahi MD [address] [place] [address] [address] [place] [address] PCP - General 02/23/11 documented as of this encounter
--- OUTSIDE RECORDS SUMMARY | 2024-07-17 08:23 | XMS_ITS | Encounter Summary ---
[place] [address] Care Team Providers Care Pharmacy Account Director Name Role Phone Genie Abdullahi MD Primary Care Provider [phone] Encounter Details Date Type Department Care Team (Latest Contact Info) Description 03/12/2024 Travel Social History Tobacco Use Types Packs/Day [...] AM EST Hospital Encounter [place] [address] Marvin Ash MD [facility] [place] [address] 08/25/2024 8:10 AM EST - 08/25/2024 9:30 AM EST Surgery [place] [address] Marvin Ash MD [facility] [place] [address] NEUROPLASTY &/OR TRANSPOSITION, ULNAR NERVE AT ELBOW (WRVU 7.26) 08/25/2024 9:40 AM EST Office Visit Dermatology at [address] [place] [address] Gary Combs MD [facility] [place] [address] 09/10/2024 10:30 AM EST Office [place] [address] Tess Florez PA [facility] [place] [address] Scheduled Procedures Name Priority Associated Diagnoses Date/Ti [...] on filedocumented in this encounter Care Teams Pharmacy Account Director Relationship Specialty Start Date End Date Genie Abdullahi MD [address] [place] [address] PCP - General 02/23/11 documented as of this encounter
--- OUTSIDE RECORDS SUMMARY | 2024-07-17 08:23 | XMS_ITS | Encounter Summary ---
[place] [address] Care Team Providers Care Sample Grader Name Role Phone Genie Abdullahi MD Primary Care Provider [phone] Encounter Details Date Type Department Care Team (Latest Contact Info) Description 03/26/2024 Travel Social History Tobacco Use Types Packs/Day [...] AM EST Hospital Encounter Outpatient [place] [address] Marvin Ash MD [facility] [place] [address] 08/25/2024 8:10 AM EST - 08/25/2024 9:30 AM EST Surgery Outpatient [place] [address] Marvin Ash MD [facility] [place] [address] NEUROPLASTY &/OR TRANSPOSITION, ULNAR NERVE AT ELBOW (WRVU 7.26) 08/25/2024 9:40 AM EST Office Visit Dermatology at [address] [place] [address] Gary Combs MD [facility] [address] [place] [address] 09/10/2024 10:30 AM EST Office [place] [address] Tess Florez PA [facility] [place] [address] Scheduled Procedures Name Priority Associated Diagnoses Date/Ti [...] on filedocumented in this encounter Care Teams Sample Grader Relationship Specialty Start Date End Date Genie Abdullahi MD [address] [place] [address] PCP - General 02/23/11 documented as of this encounter
--- OUTSIDE RECORDS SUMMARY | 2024-07-17 08:23 | XMS_ITS | Encounter Summary ---
[place] [address] Care Team Providers Care Oncology Rep Name Role Phone Genie Abdullahi MD Primary Care Provider [phone] Encounter Details Date Type Department Care Team (Latest Contact Info) Description 03/09/2024 Travel Social History Tobacco Use Types Packs/Day [...] AM EST Hospital Encounter [place]patient [place] [address] Marvin Ash MD [facility] [place] [address] 08/25/2024 8:10 AM EST - 08/25/2024 9:30 AM EST Surgery [place] [address] Marvin Ash MD [facility] [place] [address] NEUROPLASTY &/OR TRANSPOSITION, ULNAR NERVE AT ELBOW (WRVU 7.26) 08/25/2024 9:40 AM EST Office Visit Dermatology at [address] [place] [address] Gary Combs MD [facility] [place] [address] 09/10/2024 10:30 AM EST Office [place] [address] Tess Florez PA [facility] [place] [address] Scheduled Procedures Name Priority Associated Diagnoses Date/Ti [...] on filedocumented in this encounter Care Teams Oncology Rep Relationship Specialty Start Date End Date Genie Abdullahi MD [address] [place] [address] PCP - General 02/23/11 documented as of this encounter
--- OUTSIDE RECORDS SUMMARY | 2024-07-17 08:23 | XMS_ITS | Encounter Summary ---
[place] [address] Care Team Providers Care Convolute Tube Winder Name Role Phone Genie Abdullahi MD Primary Care Provider [phone] Encounter Details Date Type Department Care Team (Latest Contact Info) Description 04/15/2024 Travel Social History Tobacco Use Types Packs/Day [...] AM EST Hospital Encounter Outpatient [place] [address] Marvin Ash MD [facility] [place] [address] 08/25/2024 8:10 AM EST - 08/25/2024 9:30 AM EST Surgery [place] [address] Marvin Ash MD [facility] [place] [address] NEUROPLASTY &/OR TRANSPOSITION, ULNAR NERVE AT ELBOW (WRVU 7.26) 08/25/2024 9:40 AM EST Office Visit Dermatology at [address] [place] [address] Gary Combs MD [facility] [address] [place] [address] 09/10/2024 10:30 AM EST Office Visit [place] [address] Tess Florez PA [facility] [place] [address] Scheduled Procedures Name Priority Associated Diagnoses Date/Ti [...] on filedocumented in this encounter Care Teams Convolute Tube Winder Relationship Specialty Start Date End Date Genie Abdullahi MD [address] [place] [address] PCP - General 02/23/11 documented as of this encounter
--- OUTSIDE RECORDS SUMMARY | 2024-07-17 08:23 | XMS_ITS | Encounter Summary ---
Author Organization [facility] [place] [address] Care Team Providers Care Ship Ceiler Name Role Phone Genie Abdullahi MD Primary Care Provider [phone] Reason for Visit * Reason Comments Follow Up Surgery Encounter Details Date Type Department Care Team (Latest Contact Info) Description 09/05/2022 10:30 AM EST Office [place] [address] Radha Omalley MD [facility] [place] [address] Post-traumatic osteoarthritis of right ankle Social History [...] Sign Reading Time Taken Comments Blood Pressure 119/74 09/05/2022 10:25 AM EST Pulse 79 09/05/2022 10:25 AM EST Temperature - - Respiratory Rate - - Oxygen Saturation - - Inhaled Oxygen Concentration - - Weight 80.7 kg (178 lb) 09/05/2022 10:25 AM EST Height 170.2 cm (5' 7) 09/05/2022 10:25 AM EST Body Mass Index 27.88 09/05/2022 10:25 AM EST documented in this encounter Progress Notes * Radha Omalley MD - 09/05/2022 10:30 AM EST I saw and evaluated the patient on the date of the primary author's note. I have reviewed and agree with the findings and the plan of care as outlined in their note, with the following additions or alterations: The patient is doing really well after her total ankle arthroplasty with hardware removal. I encouraged her to continue to increase her activity level. When she walks, she still does walk with an asymmetrical gait but she feels that this is more related to her hip. I encouraged her to continue to advance her activities and work on strengthening. I will see her back in clinic at her 1 year anniversary. We should obtain weightbearing right ankle films at that visit. Radha Omalley MD Orthopaedic Surgery Attending PATIENT NAME: Chandrika Casanova AGE: 56 y.o. MR#: [id number] DATE OF VISIT: 09/05/2022 STAFF: Radha Omalley MD FOLLOW UP FOR: Principal Procedures on 05/08/2022 1. Right total ankle arthroplasty with Inbone II system 2. Right fibular hardware removal 3. Right tibial hardware removal HISTORY OF PRESENT ILLNESS: Ms. Casanova is a 56 y.o. female who comes into clinic today for follow up of the above procedure. She overall feels she is doing relatively well and is making improvements every month. Overall her pain is much better than prior to surgery. She has completed physical therapy and is now just doing stretches at home. She intermittently has some midfoot and forefoot pain which she has attributes todoing the home exercises. She feels like she has good ankle range of motion. She intermittently takes Tylenol or ibuprofen. She is using a stationary bike and also walking for exercise. Medications and Allergies were reviewed in eD-H PAST MEDICAL HX: Past Medical History: Diagnosis Date ??? Arthritis ??? Back pain 04/09/2013 ??? Diabetes mellitus ??? Migraine Patient Active Problem List Diagnosis Code ??? Diabetes mellitus type 1.5, managed as type 2 E13.9 ??? Nevus D22.9 ??? Low back pain M54.50 ??? Lumbar herniated disc M51.26 PAST SURGICAL HX: Past Surgical History: Procedure Laterality Date ??? APPENDECTOMY ??? JOINT REPLACEMENT ??? PRO ARTHROPLASTY ANKLE WITH IMPLANT Right 05/10/2022 TOTAL ANKLE ARTHROPLASTY (WRVU 14.42) performed by Radha Omalley MD at [facility] ??? PRO LAMINOTOMY, LUMBAR DISK, 1 INTRSP 08/24/2013 LAMINOTOMY, DECOMPRESSION, FORAMINOTOMY, LUMBAR performed by Sal Phan MD at [facility] MAIN OR ??? PRO MICROSURG TECHNIQUES, REQ OPER MICROSCOPE 08/24/2013 MICROSCOPE USE performed by Sal Phan MD at [facility] MAIN OR ??? PRO REMOVAL DEEP IMPLANT Right 05/10/2022 REMOVAL OF IMPLANT, DEEP, ANKLE (WRVU 5.96) performed by Radha Omalley MD at [facility] ??? TONSILLECTOMY FAMILY HX: Family History Problem Relation Age of Onset ??? Cancer Mother ??? High Blood Pressure Father ??? Cancer Sister SOCIAL HX: Social History Occupational History ??? Not on file Tobacco Use ??? Smoking status: Never ??? Smokeless tobacco: Never Vaping Use ??? Vaping Use: Never used Substance and Sexual Activity ??? Alcohol use: Not Currently Comment: once a year wine coolers ??? Drug use: No ??? Sexual activity: Yes Partners: Male General Health, Prior Treatments, PreExisting Condition, Health Habits, About You 09/03/2022 PROMIS-10 General Health Good PROMIS-10 Quality of Life Good PROMIS-10 Physical Health Fair PROMIS-10 Mental Health Good PROMIS-10 Social Activity Fair PROMIS-10 Everyday Activities Completely PROMIS-10 Pain 3 PROMIS-10 Fatigue Moderate PROMIS-10 Social Roles Good PROMIS-10 Anxious or Depressed Rarely PROMIS PHYSICAL SCORE (range 16-68) 44.9 PROMIS MENTAL SCORE (range 21-68) 43.5 Treatments Tried - Prior Surgery - HOOS JR Scores - MAUREEN Grade - Alzheimers or dementia - Cirrohosis or liver disease - HIV/AIDS - Pain in more than one joint in legs - Back or neck pain - Heart attack - Heart failure - Unclog/bypass leg arteries - Stroke, blood clot, TIA - Asthma - Emphysema, chronic bronchities, or COPD - Stomach ulcers/peptic ulcer disease - Diabetes - Diabetes caused problems with kidneys - Diabetes caused problems with eyes - Poor kidney function - Rheumatic condtions - Cancer - Weight (lbs) - Height (feet) - Height (Inches) - BMI - Ever used tobacco products - Ever used alcoholic beverages - Alcohol frequency - WHO - Alcohol Advice - Live Alone - Marital situation - Schooling - Combined Household Income - # People Supported - Tristanian, , - Race - Health Literacy - Currently working - Current job situation - [employer] Response 09/06/2021 HOOS JR Scores 70.43 OSWESTRY DISABILITY INDEX - [facility] Response 09/06/2021 Oswestry (MARY LOU) Score - Neck (NDI) Score - HOOS JR Scores 70.43 PHYSICAL EXAM: Ms. Casanova is a 56 y.o. female General appearance: in no acute distress, alert, cooperative Psych: cooperative with exam, appropriate Head: normocephalic, atraumatic EENT: EOMI grossly intact Neck: supple, trachea midline Cardiac: regular rate and rhythm by peripheral pulse Lungs: no extra work of breathing Musculoskeletal: Incision over anterior aspect of ankle well-healed with no surrounding erythema, swelling, warmth. Lateral and medial incisions also well-healed. No drainage Roughly 20 degrees of ankle dorsiflexion and 35 degrees of plantarflexion 5 out of 5 strength with plantarflexion, dorsiflexion, EHL, FHL, inversion, eversion Sensation intact to light touch throughout sural, saphenous, tibial, superficial peroneal, deep peroneal nerve distributions foot warm and well-perfused DIAGNOSTIC STUDIES: Nonweightbearing right ankle films were taken to evaluate for postoperative changes. AP, lateral and oblique views of the right ankle show hardware is in place with no evidence ofhardware loosening or loss of fixation and a congruent mortise. ASSESSMENT: Status post right total ankle arthroplasty with hardware removal, doing well. PLAN: Patient is now 4 months status post total ankle arthroplasty. Patient is doing well clinically and x-rays here unchanged from last imaging. Discussed patient she is where we would expect roughly 75% healed and will continue to improve over the next 8 to 9 months to full healing. She may do activities as tolerated. Discussed using antibiotics before dental appointments. Patient will see us back at the 1 year postop for repeat weightbearing films. The patient expressed agreement with and understanding of this plan of care. The patient understands to contact us if they have any other questions or concerns. The above documentation was completed using [employer] voice recognition software. Patient was seen and discussed with Dr. Lyssa Omalley MD Department of Orthopaedics [facility] Pager: [phone] Dillon Weller MD Orthopaedic Surgery Pager: [phone] documented in this encounter Plan of Treatment Upcoming Encounters Date Type Department Care Team (Latest Contact Info) Description 08/25/2024 8:10 AM EST Hospital Encounter Outpatient [place] [phone] Marvin Ash MD [facility] [place] [address] 08/25/2024 8:10 AM EST - 08/25/2024 9:30 AM EST Surgery Outpatient [place] [phone] Marvin Ash MD [facility] [place] [address] NEUROPLASTY &/OR TRANSPOSITION, ULNAR NERVE AT ELBOW (WRVU 7.26) 08/25/2024 9:40 AM EST Office Visit Dermatology at [address] [phone] Gary Combs MD [facility] DR [place] [address] 09/10/2024 10:30 AM EST Office [place] [address] Tess Florez PA [facility] [place] [address] Scheduled Procedures Name Priority Associated Diagnoses Date/Ti [...] nerve documented in this encounter Care Teams Ship Ceiler Relationship Specialty Start Date End Date Genie Abdullahi MD [facility] [address] [facility] [address] [place] [address] PCP - General 02/23/11 documented as of this encounter
--- OUTSIDE RECORDS SUMMARY | 2024-07-17 08:23 | XMS_ITS | Encounter Summary ---
[place] [address] Care Team Providers Care Research Greenhouse Supervisor Name Role Phone Genie Abdullahi MD Primary Care Provider [phone] Reason for Referral * Diagnostic Test (Routine) - Closed Specialty Diagnoses / Procedures Referred By Contac t Referred To Contact Neurology Diagnoses Bilateral hand numbness Violet Oliva PA [facility] [place] [address] [facility] [place] [place] Neurology [address] [place] [phone] Referral ID Status Reason Start Date Expiration Date V isits Requested Visits Authorized [id number] Closed Test Only 03/12/2024 03/12/2025 1 1 Reason for Visit * Reason Comments Establish Care BILATERAL HAND NUMBN ESS * Consultation (Routine) - Authorized Specialty Diagnoses / Procedures Referred By Contac t Referred To Contact Orthopaedics Diagnoses Carpal tunnel syndrome, right upper limb Genie Abdullahi MD [address] [place] [address] [facility] [place] [place] Orthopaedics [address] [place] [phone] Referral ID Status Reason Start Date Expiration Date Visits Requested Visits Authorized [id number] Authorized Consult, Test & Treat PCP Updated and/or Approved 01/22/2024 01/21/2025 6 6 Encounter Details Date Type Department Care Team (Late st Contact Info) Description 03/12/2024 2:00 PM EDT Office Visit Orthopaedics at [place] [address] Violet Oliva PA [facility] [place] [address] Bilateral hand numbness Social History Tobacco Use Types Packs/Day Years [...] - - Weight 82.6 kg (182 lb) 03/12/2024 1:34 PM EDT Height 170.2 cm (5' 7) 03/12/2024 1:34 PM EDT Body Mass Index 28.51 03/12/2024 1:34 PM EDT documented in this encounter Progress Notes * Violet Oliva PA - 03/12/2024 2:00 PM EDT Images from the original note were not included. PATIENT NAME: Chandrika Casanova AGE: 58 y.o. MR#: [id number] DATE OF VISIT: 03/12/2024 DATE OF INJURY/ONSET: months CHIEF COMPLAINT: Bilateral hand numbness HISTORY OF PRESENT ILLNESS: Ms. Casanova is a right hand dominant 58 y.o. female who comes into clinic today for evaluation of bilateral hands. The patient has a history significant for DM, HTN, GARRY. The patient reports bilateral hand numbness that began months ago without inciting injury. She has been trying a wrist brace with some relief. She reports worsening at night. Denies translation director weakness. She notes difficulty with small buttons. She reports involvement of all 10 digits bilaterally, right worse than left. Medications and Allergies were reviewed in eD-H PAST MEDICAL HX: Past Medical History: Diagnosis Date Arthritis Back pain 04/09/2013 Diabetes mellitus Migraine PAST SURGICAL HX: Past Surgical History: Procedure Laterality Date APPENDECTOMY JOINT REPLACEMENT PRO ARTHROPLASTY ANKLE WITH IMPLANT Right 05/10/2022 TOTAL ANKLE ARTHROPLASTY (WRVU 14.42) performed by Radha Omalley MD at [facility] PRO LAMINOTOMY, LUMBAR DISK, 1 INTRSP 08/24/2013 LAMINOTOMY, DECOMPRESSION, FORAMINOTOMY, LUMBAR performed by Sal Phan MD at [facility] MAIN OR PRO MICROSURG TECHNIQUES, REQ OPER MICROSCOPE 08/24/2013 MICROSCOPE USE performed by Sal Phan MD at [facility] MAIN OR PRO REMOVAL DEEP IMPLANT Right 05/10/2022 REMOVAL OF IMPLANT, DEEP, ANKLE (WRVU 5.96) performed by Radha Omalley MD at [facility] TONSILLECTOMY FAMILY HX: Family History Problem [...] use: No Sexual activity: Yes Partners: Male ROS: Constitutional: Denies fevers, chills Respiratory: Denies shortness of breath, cough Cardiac: Denies chest pain, palpitations GI: denies abdominal pain, nausea, vomiting Skin: Denies new rashes or lesions Neuro: Positive for numbness, tingling Musculoskeletal: as above in HPI 03/09/2024 General Health, Prior Treatments, PreExisting Condition, Health Habits, About You PROMIS-10 General Health Fair PROMIS-10 Quality of Life Good PROMIS-10 Physical Health Fair PROMIS-10 Mental Health Good PROMIS-10 Social Activity Good PROMIS-10 Everyday Activities Mostly PROMIS-10 Pain 4 PROMIS-10 Fatigue Moderate PROMIS-10 Social Roles Good PROMIS-10 Anxious or Depressed Rarely PROMIS PHYSICAL SCORE (range 16-68) 39.8 PROMIS MENTAL SCORE (range 21-68) 45.8 Treatments Tried Brace Prior Surgery Not sure if this is carpel tunnel or could be tennis elbow. I have previously had both elbows operated on years ago with tendons released. Alzheimers or dementia No Cirrohosis or liver disease No HIV/AIDS No Pain in more than one joint in legs No Back or neck pain Yes Heart attack No Heart failure No Unclog/bypass leg arteries No Stroke, blood clot, TIA No Asthma No Emphysema, chronic bronchities, or COPD No Stomach ulcers/peptic ulcer disease No Diabetes Yes Diabetes caused problems with kidneys No Diabetes caused problems with eyes No Poor kidney function No Rheumatic condtions No Cancer No Weight (lbs) 182 Height (feet) 5 feet Height (Inches) 7 BMI 28.5 (Overweight) Ever used tobacco products No Ever used alcoholic beverages Yes Alcohol frequency Once or twice WHO - Alcohol Advice 2 (You are at low risk of health and other problems from your current pattern of use.) Live Alone No Marital situation Schooling Some college or 2 - year degree Combined Household Income $75,000 or more # People Supported 2 Armenian, , No, not Armenian// Race White Health Literacy Quite a bit Currently working Yes Current job situation Full-time Employment status before injury Currently working Returned to previous employment Yes Working at same capacity as before injury Yes Spending time in inpatient rehab facility No Rate overall condition today 2 09/06/2021 [facility] Response HOOS JR Scores 70.43 09/06/2021 Spine [facility] Response HOOS JR Scores 70.43 PHYSICAL EXAM: Ms. Casanova is a 58 y.o. female General appearance: in no acute distress, alert, cooperative Psych: cooperative with exam, appropriate Head: normocephalic, atraumatic EENT: EOMI grossly intact Neck: supple, trachea midline Cardiac: regular rate and rhythm by peripheral pulse Lungs: non-labored respirations Musculoskeletal: BUE Inspection: No atrophy ROM: Full finger and wrist range of motion Orthopedic testing: RUE- positive Phalen's, Durkan's, Tinel's. LUE-negative Tinel's, positive Phalen's and Durkan's Neurovascular: SGILT R/M/U/Ax nerve distributions; AIN/PIN/U nerves fire; 2+ radial pulse ASSESSMENT: Bilateral hand numbness PLAN: -The patient was counseled that her symptoms are most consistent with carpal tunnel syndrome. She was counseled to pay particular attention to her pinky finger is involved in the numbness and tingling in the interim. I do recommend further evaluation with nerve conduction studies and EMGs with neurology for which a referral was placed today in the interim she should continue to wear her carpal tunnel braces at night if she feels like they are helping her symptoms. - She will return for follow up after the neurology appointment for results review. - The patient understands to contact us if they have any other questions or concerns. Violet Oliva PA-C Department of Orthopaedics [facility] documented in this encounter Plan of Treatment Upcoming Encounters Date Type Department Care Team (Latest Contact Info) Description 08/25/2024 8:10 AM EST Hospital Encounter [place] [phone] Marvin Ash MD [facility] [place] [address] 08/25/2024 8:10 AM EST - 08/25/2024 9:30 AM EST Surgery [place]patient [place] [phone] Marvin Ash MD [facility] [place] [address] NEUROPLASTY &/OR TRANSPOSITION, ULNAR NERVE AT ELBOW (WRVU 7.26) 08/25/2024 9:40 AM EST Office Visit Dermatology at [address] [address] Gary Combs MD [facility] [place] [address] 09/10/2024 10:30 AM EST Office Visit [place] [phone] Tess Florez PA [facility] ORTHOPAEDIC SURGERY [place], [place] [phone] Scheduled Procedures Name Priority Associated Diagnoses Date/Ti [...] as of this encounter Visit Diagnoses Diagnosis Bilateral hand numbness Disturbance of skin sensation Carpal tunnel syndrome on right Carpal tunnel syndrome Cubital tunnel syndrome on right Lesion of ulnar nerve documented in this encounter Care Teams Research Greenhouse Supervisor Relationship Specialty Start Date End Date Genie Abdullahi MD [address] [place] [address] PCP - General 02/23/11 documented as of this encounter
--- OUTSIDE RECORDS SUMMARY | 2024-07-17 08:23 | XMS_ITS | Encounter Summary ---
Author Organization [facility] Address [facility] [place] [address] Care Team Providers Care Clay Pigeon Loader Name Role Phone Genie Abdullahi MD Primary Care Provider [phone] Encounter Details Date Type Department Care Team (Latest Contact Info) Description 05/08/2023 9:32 AM EDT - 05/08/2023 11:59 PM EDT Hospital Encounter XRay at [address] [place] [address] Radha Omalley MD [facility] [place] [address] Post-traumatic osteoarthritis of right ankle; H/O total ankle replacement, right Discharge Disposition: Home Social History Tobacco Use [...] Tablet Take by mouth 2 times daily. amoxicillin (AMOXIL) 500 mg TabletIndications:H/ O total ankle replacement, right Take 4 tablets by mouth 1 hour before dental procedure 20 tablet 3 09/28/2022 05/19/2024 azelastine (ASTELIN) 137 mcg (0.1 %) Aerosol, [place] 1 spray by Nasal route 2 times daily. Use in each nostril as directed 05/19/2024 documented as of this encounter Plan of Treatment Upcoming Encounters Date Type Department Care Team (Latest Contact Info) Description 08/25/2024 8:10 AM EST Hospital Encounter Outpatient [place] [address] Marvin Ash MD [facility] [place] [address] 08/25/2024 8:10 AM EST - 08/25/2024 9:30 AM EST Surgery Outpatient [place] [address] Marvin Ash MD [facility] [place] [address] NEUROPLASTY &/OR TRANSPOSITION, ULNAR NERVE AT ELBOW (WRVU 7.26) 08/25/2024 9:40 AM EST Office Visit Dermatology at [place] [address] [place] [address] Gary Combs MD [facility] [place] [address] 09/10/2024 10:30 AM EST Office Visit Orth[place] [phone] Tess Florez PA [facility] [place] [address] Scheduled Procedures Name Priority Associated Diagnoses Date/Ti [...] XR ANKLE MIN 3 VIEWS RIGHT Routine 05/08/2023 9:44 AM EDT 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 ? Narrative 05/08/2023 12:37 PM EDT EXAMINATION: XR [...] patients who have questions please contactthe health after school caregiver that requested your imaging first. 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
--- OUTSIDE RECORDS SUMMARY | 2024-07-17 08:23 | XMS_ITS | Encounter Summary ---
Author Organization [facility] [place] [address] Care Team Providers Care Finance Consultant Name Role Phone Genie Abdullahi MD Primary Care Provider [phone] Encounter Details Date Type Department Care Team (Late st Contact Info) Description 07/05/2022 Orders Only Orth[place] [phone] Radha Omalley MD [facility] [place] [address] Post-traumatic osteoarthritis of right ankle Social History [...] AM EST Hospital Encounter [place] [phone] Marvin Ash MD [facility] [place] [address] 08/25/2024 8:10 AM EST - 08/25/2024 9:30 AM EST Surgery [place] [address] Marvin Ash MD [facility] [place] [address] NEUROPLASTY &/OR TRANSPOSITION, ULNAR NERVE AT ELBOW (WRVU 7.26) 08/25/2024 9:40 AM EST Office Visit Dermatology at [facility] [address] [place] [address] Gary Combs MD [facility] [place] [address] 09/10/2024 10:30 AM EST Office Visit [place] [phone] Tess Florez PA [facility] [place] [address] Scheduled Procedures Name Priority Associated Diagnoses Date/Ti [...] who have questions please contact the health direct care provider that requested your imaging first. ? Electronically signed by: Janneth Bearden MD, [facility] ([phone]), at 09/05/2022 11:09 AM Narrative 09/05/2022 11:09 [...] patients who have questions please contactthe health direct care provider that requested your imaging first. 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
--- OUTSIDE RECORDS SUMMARY | 2024-07-17 08:23 | XMS_ITS | Encounter Summary ---
Author Organization [facility] [place] [address] Care Team Providers Care Head Wrestling Coach Name Role Phone Genie Abdullahi MD Primary Care Provider [phone] Encounter Details Date Type Department Care Team (Late st Contact Info) Description 03/11/2024 Telephone [place] [phone] Violet Oliva PA [facility] [place] [address] Social History Tobacco Use Types Packs/Day Years [...] encounter Miscellaneous Notes * Telephone Encounter - Yuliya Celeste LNA - 03/11/2024 3:25 PM EDT LVM for patient: XR prior to appt on 03/12 is not necessary per Violet Oliva. We will see patient in 3D for 1:30 check in, 2pm appt with Violet Oliva. Call with any further questions or concerns. documented in this encounter Plan of Treatment Upcoming Encounters Date Type Department Care Team (Latest Contact Info) Description 08/25/2024 8:10 AM EST Hospital Encounter [place] [phone] Marvin Ash MD [facility] [place] [address] 08/25/2024 8:10 AM EST - 08/25/2024 9:30 AM EST Surgery [place] [phone] Marvin Ash MD [facility] [place] [address] NEUROPLASTY &/OR TRANSPOSITION, ULNAR NERVE AT ELBOW (WRVU 7.26) 08/25/2024 9:40 AM EST Office Visit Dermatology at [address] [address] Gary Combs MD [facility] DR [place] [address] 09/10/2024 10:30 AM EST Office [place] [address] Tess Florez PA [facility] [place] [address] Scheduled Procedures Name Priority Associated Diagnoses Date/Ti [...] on filedocumented in this encounter Care Teams Head Wrestling Coach Relationship Specialty Start Date End Date Genie Abdullahi MD [address] [place] [address] PCP - General 02/23/11 documented as of this encounter
--- OUTSIDE RECORDS SUMMARY | 2024-07-17 08:23 | XMS_ITS | Encounter Summary ---
[place] [address] Care Team Providers Care Validation Software Facilitator Name Role Phone Genie Abdullahi MD Primary Care Provider [phone] Encounter Details Date Type Department Care Team (Latest Contact Info) Description 09/03/2022 Travel Social History Tobacco Use Types Packs/Day [...] AM EST Hospital Encounter [place] [address] Marvin Ash MD [facility] [place] [address] 08/25/2024 8:10 AM EST - 08/25/2024 9:30 AM EST Surgery [place] [phone] Marvin Ash MD [facility] [place] [address] NEUROPLASTY &/OR TRANSPOSITION, ULNAR NERVE AT ELBOW (WRVU 7.26) 08/25/2024 9:40 AM EST Office Visit Dermatology at [address] [place] [address] Gary Combs MD [facility] [place] [address] 09/10/2024 10:30 AM EST Office [place] [address] Tess Florez PA [facility] [place] [address] Scheduled Procedures Name Priority Associated Diagnoses Date/Ti [...] on filedocumented in this encounter Care Teams Validation Software Facilitator Relationship Specialty Start Date End Date Genie Abdullahi MD [address] [place] [address] PCP - General 02/23/11 documented as of this encounter
--- OUTSIDE RECORDS SUMMARY | 2024-07-17 08:23 | XMS_ITS | Encounter Summary ---
[place] [address] Care Team Providers Care Machine Tool Mechanic Name Role Phone Genie Abdullahi MD Primary Care Provider [phone] Encounter Details Date Type Department Care Team (Late st Contact Info) Description 05/04/2024 Telephone Dermatology at [facility] [address] [place] [phone] Ángela Carlos, RN Social History Tobacco Use Types Packs/Day Years [...] encounter Miscellaneous Notes * Telephone Encounter - Ángela Carlos RN - 05/04/2024 4:49 PM EDT Mohs consultation and preoperative note (H&P) Patient Name: Chandrika Casanova Age: 58 y.o. Date of : 1965 Today's Date: 05/04/2024 REFERRING PROVIDER: Felicitas Medina MD CC: Mohs [...] you ever had Mohs surgery with Dr. Hernandez? no Pacemaker/Defibrillator? no Joint replacement or other [...] AM EST Hospital Encounter Outpatient [place] [address] Marvin Ash MD [facility] [place] [address] 08/25/2024 8:10 AM EST - 08/25/2024 9:30 AM EST Surgery Outpatient [place] [address] Marvin Ash MD [facility] [place] [address] NEUROPLASTY &/OR TRANSPOSITION, ULNAR NERVE AT ELBOW (WRVU 7.26) 08/25/2024 9:40 AM EST Office Visit Dermatology at [address] [place] [address] Gary Combs MD [facility] [address] [place] [address] 09/10/2024 10:30 AM EST Office Visit Orthopaedics at [facility] [address] [place] [phone] Tess Florez PA [facility] [place] [address] Scheduled Procedures Name Priority Associated Diagnoses Date/Ti [...] on filedocumented in this encounter Care Teams Machine Tool Mechanic Relationship Specialty Start Date End Date Genie Abdullahi MD [facility] [address] [place] [address] PCP - General 02/23/11 documented as of this encounter
--- OUTSIDE RECORDS SUMMARY | 2024-07-17 08:23 | XMS_ITS | Encounter Summary ---
[place] [address] Care Team Providers Care Pattern Layout Worker Name Role Phone Genie Abdullahi MD Primary Care Provider [phone] Encounter Details Date Type Department Care Team (Latest Contact Info) Description 03/24/2024 Travel Social History Tobacco Use Types Packs/Day [...] AM EST Hospital Encounter Outpatient [place] [address] Marvin Ash MD [facility] [place] [address] 08/25/2024 8:10 AM EST - 08/25/2024 9:30 AM EST Surgery Outpatient [place] [address] Marvin Ash MD [facility] [place] [address] NEUROPLASTY &/OR TRANSPOSITION, ULNAR NERVE AT ELBOW (WRVU 7.26) 08/25/2024 9:40 AM EST Office Visit Dermatology at [address] [place] [address] Gary Combs MD [facility] [place] [address] 09/10/2024 10:30 AM EST Office Visit [place] [address] Tess Florez PA [facility] [place] [address] Scheduled Procedures Name Priority Associated Diagnoses Date/Ti [...] on filedocumented in this encounter Care Teams Pattern Layout Worker Relationship Specialty Start Date End Date Genie Abdullahi MD [address] [place] [address] PCP - General 02/23/11 documented as of this encounter
--- OUTSIDE RECORDS SUMMARY | 2024-07-17 08:24 | XMS_ITS | Encounter Summary ---
Author Organization [facility] [place] [address] Care Team Providers Care Fork Truck Driver Name Role Phone Genie Abdullahi MD Primary Care Provider Encounter Details Date Type Department Care Team (Late st Contact Info) Description 02/13/2022 [place] [phone] Radha Omalley MD [facility] [place] [address] Post-traumatic osteoarthritis of right ankle Social History Tobacco Use Types Packs/Day Years Used Date Smoking Tobacco: Never Smokeless Tobacco: Never Alcohol Use Standard Drinks/Week Comments Not Asked 0 (1 standard drink = 0.6 oz [...] AM EST Hospital Encounter Outpatient [place] [phone] Marvin Ash MD [facility] [place] [address] 08/25/2024 8:10 AM EST - 08/25/2024 9:30 AM EST Surgery Outpatient [place] [address] Marvin Ash MD [facility] [place] [address] NEUROPLASTY &/OR TRANSPOSITION, ULNAR NERVE AT ELBOW (WRVU 7.26) 08/25/2024 9:40 AM EST Office Visit Dermatology at [facility] [address] [place] [address] Gary Combs MD [facility] [place] [address] 09/10/2024 10:30 AM EST [place] [phone] Tess Florez PA [facility] [place] [address] Scheduled Procedures Name Priority Associated Diagnoses Date/Ti [...] nerve documented in this encounter Care Teams Fork Truck Driver Relationship Specialty Start Date End Date Genie Abdullahi MD [facility] [address] [place] [address] PCP - General 02/23/11 documented as of this encounter
--- OUTSIDE RECORDS SUMMARY | 2024-07-17 08:24 | XMS_ITS | Encounter Summary ---
Author Organization [facility] [place] [address] Care Team Providers Care Feed Mixer Helper Name Role Phone Genie Abdullahi MD Primary Care Provider [phone] Reason for Visit * Reason Onset Date Comments Disability Paperwork 04/17/2022 Encounter Details Date Type Department Care Team (Late st Contact Info) Description 04/17/2022 Telephone [place] [phone] Radha Omalley MD [facility] DR [place] [address] Disability Paperwork Social History Tobacco Use Types Packs/Day Years [...] encounter Miscellaneous Notes * Telephone Encounter - Cassandra Price - 04/25/2022 10:06 AM EDT Completed by: Cassandra To provider for review/signature: Signed Faxed/Mailed/MY PORTAL/Pick-up Date: Faxed * Telephone Encounter - Cassandra Price - 04/17/2022 11:50 AM EDT Date Received: 04/16/22 Insurance/Disability Company Name: [employer] documented in this encounter Plan of Treatment Upcoming Encounters Date Type Department Care Team (Latest Contact Info) Description 08/25/2024 8:10 AM EST Hospital Encounter [place] [phone] Marvin Ash MD [facility] [place] [address] 08/25/2024 8:10 AM EST - 08/25/2024 9:30 AM EST Surgery [place] [phone] Marvin Ash MD [facility] [place] [address] NEUROPLASTY &/OR TRANSPOSITION, ULNAR NERVE AT ELBOW (WRVU 7.26) 08/25/2024 9:40 AM EST Office Visit Dermatology at [address] [address] Gary Combs MD [facility] [place] [address] 09/10/2024 10:30 AM EST Office [place] [address] Tess Florez PA [facility] [place] [address] Scheduled Procedures Name Priority Associated Diagnoses Date/Ti [...] on filedocumented in this encounter Care Teams Feed Mixer Helper Relationship Specialty Start Date End Date Genie Abdullahi MD [facility] [address] [place] [address] PCP - General 02/23/11 documented as of this encounter
--- OUTSIDE RECORDS SUMMARY | 2024-07-17 08:24 | XMS_ITS | Encounter Summary ---
[place] [address] Care Team Providers Care Casing Operator Name Role Phone Genie Abdullahi MD Primary Care Provider Reason for Visit * Reason Comments Pre-op Exam 05-10-22 Right total ankle arthroplasty Encounter Details Date Type Department Care Team (Latest Contact Info) Description 05/02/2022 11:00 AM EDT Office Visit Orth[place]edics [place] [address] Avila Mcleod MD [facility] [place] [address] Preop examination; Post-traumatic osteoarthritis of right ankle; Other specified diabetes mellitus with other specified complication, with long-term current use of insulin Social History Tobacco Use Types Packs/Day Years [...] Sign Reading Time Taken Comments Blood Pressure 127/73 05/02/2022 10:54 AM EDT Pulse 89 05/02/2022 10:54 AM EDT Temperature - - Respiratory Rate - - Oxygen Saturation 97% 05/02/2022 10: 54 AM EDT Inhaled Oxygen Concentration - - Weight 81.6 kg (179 lb 14.3 oz) 022 10:54 AM EDT Height 170.2 cm (5' 7.01) 05/02/2022 1 0:54 AM EDT Body Mass Index 28.17 05/02/2022 10:54 AM EDT documented in this encounter Progress Notes * Avila Mcleod MD - 05/02/2022 11:00 AM EDT Images from the original note were not included. CC: Chandrika Casanova is a 56 y.o. female with the following problems and medications that is being seen in the clinic for consultation at the request of her surgeon Dr. Radha Omalley for preoperative risk stratification and management recommendations in anticipation of right total ankle arthroplasty for symptomatic post traumatic arthritis. HPI - Pain - Location - right ankle, Quality - aching, Onset - had prior fracture and surgery with internal fixation for that Duration - several years Intensity - moderate to severe, Aggravating factors - standing, walking, stepping, bending, Alleviating factors - NSAID, APAP, rest, topical, Associated - has improved A1c from prior 7.5 to recent 7.2 and followed by local provider. She deferred CGM due to sensitivity to adhesives. She is on Levemir 50 units at HS and 1 unit per 5 grams CHO mealtime coverage. She notes CBG below 70 almost daily, usually has perioral numbness with flushing of face and some decreased cognition as her hypoglycemic symptoms. She is duloxetine to address her arthra lgia. Patient Active Problem List Diagnosis Code ??? Diabetes mellitus type 1.5, managed as type 2 E13.9 ??? Nevus D22.9 ??? Low back pain M54.50 ??? Lumbar herniated disc M51.26 Current Outpatient Medications Medication Sig Dispense Refill ??? triamcinolone acetonide (Kenalog) 0.1 % Paste ??? DULoxetine (Cymbalta) 20 mg Capsule, Delayed Release(E.C.) Take 20 mg by mouth nightly. ??? azelastine (ASTELIN) 137 mcg (0.1 %) Aerosol, [place] 1 spray by Nasal route 2 times daily. Use in each nostril as directed ??? CALCIUM 26-VIT D3-MAGNESIUM 15 ORAL Take by mouth. ??? ascorbic acid, vitamin C, (VITAMIN C) 1,000 mg Tablet Take 1,000 mg by mouth daily. ??? OneTouch Verio test strips Strip ??? Estring 2 mg (7.5 mcg /24 hour) Ring ??? indomethacin (Indocin) 25 mg Capsule TAKE 1 CAPSULE BY MOUTH EVERY DAY NEEDED FOR MIGRAINE HEADACHE. DO NOT TAKE WITH CELEBREX ??? Levemir FlexTouch U-100 Insuln Insulin Pen Inject 50 Units subcutaneously nightly. ??? humaLOG KwikPen 100 unit/mL Insulin Pen ??? OneTouch Delica Plus Lancet 30 gauge Misc ??? Unifine Pentips Plus 31 gauge x 3/16 Needle ??? rosuvastatin (Crestor) 20 mg Tablet Take 20 mg by mouth nightly. ??? celecoxib (CeleBREX) 200 mg Capsule Take 400 mg by mouth daily. ??? lisinopril (PRINIVIL;ZESTRIL) 5 mg tablet Take 5 mg by mouth daily. ??? omeprazole (PRILOSEC) 20 mg capsule Take 20 mg by mouth daily. ??? aspirin 81 mg EC tablet Take 81 mg by mouth daily. ??? CYANOCOBALAMIN, VITAMIN B-12, ORAL Take 2,000 mcg by mouth daily. ??? calcium-vitamin D3 600 mg-5 mcg (200 unit) Tablet Take by mouth 2 times daily. No current facility-administered medications for this visit. Social History Occupational History ??? Not on file Tobacco Use ??? Smoking status: Never Smoker ??? Smokeless tobacco: Never Used Substance and Sexual Activity ??? Alcohol use: Not on file Comment: once a year wine coolers ??? Drug use: No ??? Sexual activity: Yes Partners: Male Family History Problem Relation Age of Onset ??? Cancer Mother ??? High Blood Pressure Father ??? Cancer Sister Review of Systems Constitutional: Negative for chills, diaphoresis and fever. Respiratory: Negative for cough, shortness of breath and wheezing. Cardiovascular: Negative for chest pain, palpitations and leg swelling. Gastrointestinal: Negative for abdominal pain, anal bleeding and blood in stool. Endocrine: Negative for polydipsia and polyphagia. Genitourinary: Negative for dysuria, flank pain and hematuria. Skin: Negative for pallor and rash. Allergic/Immunologic: Negative for environmental allergies and immunocompromised state. Neurological: Negative for syncope and speech difficulty. Hematological: Negative for adenopathy. Does not have melena. Psychiatric/Behavioral: Negative for confusion, decreased concentration and dysphoric mood. Allergies: Allergies Allergen Reactions ??? Adhesive Tape Rash ??? Bactrim [Sulfamethoxazole-Trimethoprim] Rash ??? Keflex [Cephalexin] Rash Physical Exam: Last Set of Vitals and Range over past 24 hours: Last value Range last 24 hrs Heart Rate Heart Rate: 89 Heart Rate: [89] Blood Pressure BP: 127/73 BP: (127)/(73) SpO2 SpO2: 97 % SpO2: [97 %] Estimated body mass index is 28.17 kg/m?? as calculated from the following: Height as of this encounter: 170.2 cm (5' 7.01). Weight as of this encounter: 81.6 kg (179 lb 14.3 oz). Physical Exam Constitutional: She is oriented to person, place, and time. She appears well- developed. No distress. HENT: Head: Normocephalic and atraumatic. Eyes: Right eye exhibits no discharge. Left eye exhibits no discharge. No scleral icterus. Neck: Neck supple. No JVD present. Cardiovascular: Normal rate, regular rhythm and normal heart sounds. Exam reveals no gallop and no friction rub. No murmur heard. Pulmonary/Chest: Effort normal and breath sounds normal. No stridor. No respiratory distress. She has no wheezes. She has no rales. She exhibits no spinal tenderness. Abdominal: Soft. Bowel sounds are normal. She exhibits no percussed HSM. There is no CVA tenderness. There is no rebound and no guarding. Musculoskeletal: She exhibits no edema. She has no aide with ambulation, restricted ROM at right ankle compared to left. Neurological: She is alert and oriented to person, place, and time. She displays no tremors at restor on intent. Skin: Skin is warm and dry. She is not diaphoretic. No pallor. Psychiatric: She has a normal mood and affect. Her behavior is normal. Judgment and thought contentnormal. Xray - IMPRESSION ORIF of prior bimalleolar fracture without radiographic evidence of complication. Osteoarthropathy of the tibiotalar joint A/P 1. Preop examination 2. Post-traumatic osteoarthritis of right ankle 3. Other specified diabetes mellitus with other specified complication, with long-term current use of insulin She elects to proceed with her TAA for improved pain and activity tolerance. We reviewed that in light of her hypoglycemia, it would be prudent to decrease her Levemir dose the night before surgery. We acknowledged that she does have excursions above 200 as well as below 70 and noted that it would be important to avoid the lows during surgery and while recovering immediately after while at the same time ensuring that the hyperglycemic events are not excessive. Major Risk Factor per the Revised Cardiac Risk Index (Bold if present) - CAD, CHF, CVA or TIA, DM on insulin, or a Creatinine >2 Risk diagnosis for MACE (major adverse cardiovascular event = Myocardial infarction, pulmonary edema, ventricular fibrillation, primary cardiac arrest, or complete heart block.) : Elevated >1% . The patient describes a functional status of 4METs and more (attends to self and home, home exercises, outdoor walks) and based on the ACC/AHA 2014 guideline no further cardiovascular testing is indicated. Per the ACS NSQIP calculator I estimated the following. Patient instructions: Take only 40 units of Levemir the night before surgery. Take only omeprazole the morning of surgery. documented in this encounter Plan of Treatment Upcoming Encounters Date Type Department Care Team (Latest Contact Info) Description 08/25/2024 8:10 AM EST Hospital Encounter [place] [address] Marvin Ash MD [facility] [place] [address] 08/25/2024 8:10 AM EST - 08/25/2024 9:30 AM EST Surgery [place] [address] Marvin Ash MD [facility] [place] [address] NEUROPLASTY &/OR TRANSPOSITION, ULNAR NERVE AT ELBOW (WRVU 7.26) 08/25/2024 9:40 AM EST Office Visit Dermatology at [facility] [address] [place] [address] Gary Combs MD [facility] [place] [address] 09/10/2024 10:30 AM EST Office Visit [place] [address] Tess Florez PA [facility] [place] [address] Scheduled Procedures Name Priority Associated Diagnoses Date/Ti me NEUROPLASTY &/OR TRANSPOSITION, ULNAR NERVE AT ELBOW (WRVU 7.26) Carpal tunnel syndrome on right Cubital tunnel syndrome on right 08/25/2024 8:10 AM EST ENDOSCOPY WRIST W/ RELEASE TRANSVERSE CARPAL LIGAMENT (WRVU 6.39) Carpal tunnel syndrome on right Cubital tunnel syndrome on right 08/25/2024 8:10 AM EST documented as of this encounter Visit Diagnoses Diagnosis Preop examination Preoperative examination, unspecified Post-traumatic osteoarthritis of right ankle Other specified diabetes mellitus with other specified complication, with long- term current use of insulin Carpal tunnel syndrome on right Carpal tunnel syndrome Cubital tunnel syndrome on right Lesion of ulnar nerve documented in this encounter Care Teams Casing Operator Relationship Specialty Start Date End Date Genie Abdullahi MD [facility] [address] [facility] [address] [place] [address] PCP - General 02/23/11 documented as of this encounter
--- OUTSIDE RECORDS SUMMARY | 2024-07-17 08:24 | XMS_ITS | Encounter Summary ---
Author Organization [facility] [place] [address] Care Team Providers Care Frozen Foods Manager Name Role Phone Genie Abdullahi MD Primary Care Provider [phone] Reason for Visit * Reason Onset Date Comments Disability Paperwork 05/23/2022 Encounter Details Date Type Department Care Team (Late st Contact Info) Description 05/23/2022 Telephone [place] [phone] Radha Omalley MD [facility] [place] [address] Disability Paperwork Social History Tobacco Use Types [...] * Telephone Encounter - Cassandra Price - 05/30/2022 11:48 AM EDT Completed by: Cassandra To provider for review/signature: Signed Faxed/Mailed/MY PORTAL/Pick-up Date: Faxed * Telephone Encounter - Winter Burns - 05/23/2022 11:30 AM EDT Date Received: 05/23/22 Insurance/Disability Company Name: Branden Hutchins Release on file/mailed: on file documented in this encounter Plan of Treatment Upcoming Encounters Date Type Department Care Team (Latest Contact Info) Description 08/25/2024 8:10 AM EST Hospital Encounter [place] [address] Marvin Ash MD [facility] [place] [address] 08/25/2024 8:10 AM EST - 08/25/2024 9:30 AM EST Surgery [place] [address] Marvin Ash MD [facility] [place] [address] NEUROPLASTY &/OR TRANSPOSITION, ULNAR NERVE AT ELBOW (WRVU 7.26) 08/25/2024 9:40 AM EST Office Visit Dermatology at [address] [address] Gary Combs MD [facility] [address] [place] [address] 09/10/2024 10:30 AM EST Office Visit [place] [address] Tess Florez PA [facility] [place] [address] Scheduled Procedures Name Priority Associated Diagnoses Date/Ti [...] on filedocumented in this encounter Care Teams Frozen Foods Manager Relationship Specialty Start Date End Date Genie Abdullahi MD [facility] [address] [place] [address] PCP - General 02/23/11 documented as of this encounter
--- OUTSIDE RECORDS SUMMARY | 2024-07-17 08:24 | XMS_ITS | Encounter Summary ---
Author Organization [facility] [place] [address] Care Team Providers Care Carpenter Refrigerator Name Role Phone Genie Abdullahi MD Primary Care Provider [phone] Encounter Details Date Type Department Care Team (Late st Contact Info) Description 07/20/2021 Ancillary Procedure Radiology Library at [facility] [place] [phone] Genie Abdullahi MD [facility] [address] [facility] [address] [place], [place] [id number] Social History Tobacco Use Types Packs/Day Years [...] AM EST Hospital Encounter [place] [phone] Marvin Ash MD [facility] [place] [address] 08/25/2024 8:10 AM EST - 08/25/2024 9:30 AM EST Surgery Outpatient [place] [address] Marvin Ash MD [facility] [place] [address] NEUROPLASTY &/OR TRANSPOSITION, ULNAR NERVE AT ELBOW (WRVU 7.26) 08/25/2024 9:40 AM EST Office Visit Dermatology at [facility] [address] [place] [address] Gary Combs MD [facility] [place] [address] 09/10/2024 10:30 AM EST Office Visit [place] [phone] Tess Florez PA [facility] [place] [address] Scheduled Procedures Name Priority Associated Diagnoses Date/Ti [...] Procedure Name Priority Date/Time Associated Diagnosis Comments FILM LIBRARY STORAGE ONLY DX HIP Routine 07/20/2021 12:00 AM EST documented in this encounter Results * Film Library- Storage Only DX Hip (07/20/2021 12:00 AM EST) Narrative [place] - 08/21/2021 4:47 PM EST This exam is auto-finalizing. It's purpose is for storage only. Genie Abdullahi MD IMG FILM LIBRARY ORD ERABLES [place], [place] documented in this encounter Visit Diagnoses Not on filedocumented in this encounter Care Teams Carpenter Refrigerator Relationship Specialty Start Date End Date Genie Abdullahi MD [facility] [address] [facility] [address] [place] [address] PCP - General 02/23/11 documented as of this encounter
--- OUTSIDE RECORDS SUMMARY | 2024-07-17 08:24 | XMS_ITS | Encounter Summary ---
[place] [address] Care Team Providers Care Wire Inserter Name Role Phone Genie Abdullahi MD Primary Care Provider [phone] Encounter Details Date Type Department Care Team (Latest Contact Info) Description 09/14/2021 Travel Social History Tobacco Use Types Packs/Day [...] AM EST Hospital Encounter Outpatient [place] [address] Marvin Ash MD [facility] [place] [address] 08/25/2024 8:10 AM EST - 08/25/2024 9:30 AM EST Surgery Outpatient [place] [phone] Marvin Ash MD [facility] [place] [address] NEUROPLASTY &/OR TRANSPOSITION, ULNAR NERVE AT ELBOW (WRVU 7.26) 08/25/2024 9:40 AM EST Office Visit Dermatology at [address] [place] [address] Gary Combs MD [facility] [place] [address] 09/10/2024 10:30 AM EST [place] [address] Tess Florez PA [facility] [place] [address] Scheduled Procedures Name Priority Associated Diagnoses Date/Ti [...] on filedocumented in this encounter Care Teams Wire Inserter Relationship Specialty Start Date End Date Genie Abdullahi MD [address] [place] [address] PCP - General 02/23/11 documented as of this encounter
--- OUTSIDE RECORDS SUMMARY | 2024-07-17 08:24 | XMS_ITS | Encounter Summary ---
Author Organization [facility] [place] [address] Care Team Providers Care Riding Silks Custodian Name Role Phone Genie Abdullahi MD Primary Care Provider [phone] Encounter Details Date Type Department Care Team (Late st Contact Info) Description 05/13/2018 Ancillary Procedure Radiology Library at [facility] [place] [phone] Genie Abdullahi MD [facility] [address] [place], [place] [address] Social History Tobacco Use Types Packs/Day Years [...] AM EST Hospital Encounter Outpatient [place] [phone] Marvin Ash MD [facility] [place] [address] 08/25/2024 8:10 AM EST - 08/25/2024 9:30 AM EST Surgery Outpatient [place] [address] Marvin Ash MD [facility] [place] [address] NEUROPLASTY &/OR TRANSPOSITION, ULNAR NERVE AT ELBOW (WRVU 7.26) 08/25/2024 9:40 AM EST Office Visit Dermatology at [facility] [address] [place] [address] Gary Combs MD [facility] [place] [address] 09/10/2024 10:30 AM EST Office [place] [phone] Tess Florez PA [facility] [place] [address] Scheduled Procedures Name Priority Associated Diagnoses Date/Ti [...] Diagnosis Comments FILM LIBRARY STORAGE ONLY DX FOOT Routine 05/13/2018 12:00 AM EDT documented in this encounter Results * Film Library- Storage Only DX Foot (05/13/2018 12:00 AM EDT) Narrative [facility] - 07/25/2021 11:47 AM EST This exam is auto-finalizing. It's purpose is for storage only. Genie Abdullahi MD IMG FILM LIBRARY ORD ERABLES [place], [place] documented in this encounter Visit Diagnoses Not on filedocumented in this encounter Care Teams Riding Silks Custodian Relationship Specialty Start Date End Date Genie Abdullahi MD [facility] [address] [place] [address] PCP - General 02/23/11 documented as of this encounter
--- OUTSIDE RECORDS SUMMARY | 2024-07-17 08:24 | XMS_ITS | Encounter Summary ---
[place] [address] Care Team Providers Care Fish Liver Sorter Name Role Phone Genie Abdullahi MD Primary Care Provider [phone] Reason for Visit * Auth/Cert Specialty Diagnoses / Procedures Referred By Gina t Referred To Contact Diagnoses Post-traumatic osteoarthritis of right ankle Right end stage ankle arthritis Procedures PRO ARTHROPLASTY ANKLE WITH IMPLANT PRO REMOVAL DEEP IMPLANT PRO GASTROCNEMIUS RECESSION TOTAL ANKLE ARTHROPLASTY (WRVU 14.42) REMOVAL OF IMPLANT, DEEP, ANKLE (WRVU 5.96) GASTROCNEMIUS RECESSION (WRVU 6.41) Radha Omalley MD [facility] [place] [address] [facility] Referral ID Status Reason Start Date Expiration Date Visits Re quested Visits Authorized [id number] 1 1 Encounter Details Date Type Department Care Team (Late st Contact Info) Description 05/10/2022 1:45 PM EDT - 05/10/2022 5:05 PM EDT Surgery [place] [id number] Radha Omalley MD [facility] [place] [address] TOTAL ANKLE ARTHROPLASTY (WRVU 14.42) Social History Tobacco Use Types Packs/Day Years [...] Sign Reading Time Taken Comments Blood Pressure 149/79 05/10/2022 1:15 PM EDT Pulse 90 05/10/2022 1:20 PM EDT Temperature 36.3 ??C (97.3 ??F) 05/10/2022 12:45 PM E DT Respiratory Rate 12 05/10/2022 1:20 PM EDT Oxygen Saturation 97% 05/10/2022 1:20 PM EDT Inhaled Oxygen Concentration - - Weight 81.6 kg (180 lb) 05/10/2022 12:45 PM EDT Height 170.2 cm (5' 7) 05/10/2022 12:45 PM EDT Body Mass Index 28.19 05/10/2022 12:45 PM EDT documented in this encounter Discharge Instructions * Discharge Instructions* Izzy Wan RN - 05/10/2022 12:33 PM EDT Images from the original note were not included. General Anesthesia Discharge Instructions Go home and rest. You may be sleepy for several hours. Take it easy as sudden position changes may cause nausea and/or dizziness. Use caution on stairs. Do not smoke if you are alone. Follow a light to regular diet as tolerated today. If nausea occurs, start with clear liquids, and progress slowly to a regular diet. Do not drive, operate machinery, drink alcoholic beverages or make any legal decisions after havinggeneral anesthesia. The medications given change your reaction time and alter your judgement. IV site -- slight redness is normal, you can use warm compresses. If tenderness and redness increases or foul drainage occurs, please contact your M.D. Patients who have had endotracheal tubes/LMA (tubes used by the anesthesia staff to ensure a safe airway during your operation) may have a sore throat. This is normal and cold liquids or soothing lozenges will help ease this discomfort. Narcotic pain medications can cause constipation, please ask the surgeons office what they recommend for prevention of this. Some non-pharmaceutical means of constipation prevention include increasing intake of fluids, eating more fruits and vegetables as well as fruit juices. If you are uncomfortable and/or unable to urinate within 8 hours of discharge and it is before 5 pm, call your physician. If it is after 5pm go to the closest emergency room or call the hospital food production machine operator at [phone] and ask for physician production repairer covering for your physician. Questions or problems after 5pm or on a weekend: Call the [facility] food production machine operator at and ask for the physician production repairer covering for your doctor. Lower Extremity Nerve Block Nerve blocks affect many types of nerves. The affected nerves control movement, pain, and normal sensation. This causes feelings such as: Weakness Numbness Tingling Heaviness A feeling that your leg or foot has fallen asleep. A nerve block can last from about 2 to 48 hours, depending on the medications used. Usually the weakness wears off first, then you will feel a numb or tingly sensation. Finally, the pain may come back. This can happen in any order. If you continue to feel the effects of the nerve block for longer than 48 hours, please call the Anesthesiology department at . Pain Medication If needed, your surgeon will give you a prescription for pain medication. Start taking this medication before the nerve block wears off. Nerve blocks sometimes wear off during the night. It is a goodidea to take your pain medicine as prescribed before going to sleep so you won't wake up with pain.The idea is to have pain medicine in your body before the nerve block wears off. To help prevent nausea, eat something before taking the pain medicine. Once a nerve block starts to wear off, it is usually completely gone within 60 minutes. It is important to have pain medicine in your system before the block wears off completely. Helpful tips to protect the part of your body that is numb. After a nerve block, you cannot feel pain, pressure, or extremes in temperature. Because your leg or foot is numb, it is more at risk for injury. Therefore.... While you are awake, try to change positions of your leg or foot often. This will help you avoid putting too much pressure on the limb for long periods of time. While sleeping, pad the blocked limb with pillows to avoid placing too much pressure on the limb. If you have a cast or a tight dressing, check the color of your toes every couple of hours. Call your doctor if any look discolored. Ask your family or support people to help with the above hints. QUESTIONS? Please call the Anesthesiology department at with concerns or after hours and ask for the anesthesiologist production repairer. [facility] Learning About Deep Vein Thrombosis What is deep vein thrombosis? A deep vein thrombosis (DVT) is a blood clot in certain veins of the legs, pelvis, or arms. The clot is usually in the legs. DVT may damage the vein and cause the area to ache, swell, and change color. DVT also can lead to sores. DVT in these veins needs to be treated because the clots can get bigger, break loose, and travel through the bloodstream to the lungs. A blood clot in a lung can cause . Blood clots can form in the veins when you are not active for a long period of time. For example, they can form if you need to stay in bed because of a health problem or must sit for a long time on an airplane or in a car. Surgery or an injury can damage your blood vessels and cause a clot to form.Cancer also can cause DVT. And some people have blood that clots too easily, which is a problem that may run in families. A risk factor is something that makes you more likely to develop a disease. Here are some major risk factors for DVT: You have surgery. You have to stay in bed for more than 3 days (such as in the hospital). Your blood is likely to clot because of an injury, cancer, or inherited condition. Here are some minor risk factors for DVT: You take control hormones. You are . You are in a car or airplane for a long trip. What are the symptoms? Symptoms of DVT may include: Swelling in the affected area. Redness and warmth in the affected area. Pain or tenderness. You may have pain only when you touch the affected area or when you stand or walk. If your doctor thinks you may have DVT, you will probably have an ultrasound test. You may have other tests as well. How can you prevent DVT? Exercise your lower leg muscles to help blood flow in your legs. Point your toes up toward your head so the calves of your legs are stretched, then relax and repeat. This is a good exercise to do when you are sitting for long periods of time. Get out of bed as soon as you can after an illness or surgery. If you need to stay in bed, do the leg exercise noted above every hour when you are awake. Use special stockings called compression stockings. These stockings are tight at the feet with a gradually looser fit on the leg. Many doctors recommend that you wear compression stockings during a journey longer than 8 hours. Take breaks when you are on long trips. Stop the car and walk around. On long airplane flights, walk up and down the aisle hourly, flex and point your feet every 20 minutes while sitting, and drink plenty of water. Take blood-thinning medicines before and after some types of surgery if your doctor recommends it. Blood thinners also may be used if you are likely to develop clots. How is DVT treated? Treatment for DVT usually involves taking blood thinners. These medicines are given through a vein (intravenously, or IV) or as a pill. You will have blood tests often so your doctor can see how wellthe blood thinners are working. Your doctor also may suggest that you prop up or elevate your leg when possible, take walks, and wear compression stockings. These measures may help reduce the pain and swelling that can happen with DVT. Follow-up care is a huitron part of your treatment and safety. Be sure to make and go to all appointments, and call your doctor if you are having problems. It's also a good idea to know your test resultsand keep a list of the medicines you take. Where can you learn more? Visit our health information library at [email or web address]. You can alsoview health information on [facility], your personal patient account. Log in or sign up today. Enter X941 in the search box to learn more about Learning About Deep Vein Thrombosis. ?? [phone] [employer]. Care instructions adapted under license by [facility]. This care instruction is for use with your licensed healthcare professional. If you have questions about a medical condition or this instruction, always ask your healthcare professional. [employer] disclaims any warranty or liability for your use of this information. Content Version: 8.9.74573; Last Revised: September 20, 2009 * Patient Instructions* Jonna Valenzuela MD - 05/10/2022 5:12 PM EDT Activity level: 1. You are Non-weight bearing on your Right leg. 2. Remember to use the walker or crutches at all times for protection and balance. 3. Remember to keep your Right leg elevated as much as possible to decrease swelling and control pain. Anticoagulation: Aspirin - You are being discharged on enteric-coated Aspirin 81mg by mouth twice aday. Continue this for 30 days. After your dose on 06/10/22 stop the Aspirin, unless you are told otherwise by your Orthopedic surgeon. Take this medication with food or large amounts (240 mL) of water or milk to minimize GI irritation. Diet: You may return to your usual diet, but increase your fluids and fiber intake to keep you hydrated and your bowels soft. To help with wound healing increase your intake of high protein foods andfluids. Driving: None until you are cleared to do so by your Orthopedic surgeon. You should not drive whileyou are on narcotic pain meds as they can affect your judgment and reaction time. Call your surgeonwith any questions/concerns. Medications: 1. The pain medication you are on can cause constipation so increase your intake of fluids and fiber while you are on them. The stool softener, Pericolace, that has been prescribed can also be taken to facilitate a bowel movement. You can also take an svxs-pca-seveetr medication, Miralax if needed to combat constipation. 2. If you need a renewal on your narcotic pain medication, you need to give the Orthopedic clinic enough time to process your request. This can take up to three days, so plan accordingly. 3. Continue acetaminophen (Tylenol) 1,000mg every 8 hours around the clock until 05/20/22. This canbe effective in controlling pain along with your other medications. After that you can take Tylenolas needed per package insert. Do not take more than 3,000mg of acetaminophen in a 24 hour period. 4. You have been discharged on a short acting narcotic, oxycodone. You will be on this medication for a limited period of time only. Taper off this medication as your pain improves. Shower/Bath: You may shower BUT use a waterproof dressing (plastic bag taped at the top) to cover the incision/dressing. DO NOT submerge the wound. Remember you MUST to observe your weight bearing status and activity limitations when you shower so use a chair or bench for balance if you are unable to safely stand. A sponge bath may be easier. Wound Care: 1. Suture/staple removal 2 weeks post-op (at follow-up). 2. Leave the operative dressing on until follow-up. Cast/Splint Care: Keep the cast or splint in place until your follow-up with Orthopedics. Keep the cast/splint clean and dry. It is easiest to sponge bathe, but if you must bathe, protect the cast/splint with a plastic bag high above the cast or splint and secure with adhesive tape. Do not submergethe cast in water at anytime. If the cast accidently gets wet, call the office immediately to have it replaced. A wet cast can cause severe skin and wound problems. FOLLOW-UP APPOINTMENTS: 1. You will have follow-up appointments at [facility] as indicated in Future Appointment and Orders. You will have an xray prior to those appointments so please come to Radiology, desk 3T, 1 hour BEFORE your appointment for those x- rays on 2. If you are being discharged over the weekend or at night and do not have a scheduled appointmentwith Orthopedics, you should be notified about your appointment within the next 1-2 days. Please call if you do not hear about an appointment within that timeframe, as your follow-up is important to us. Future Appointments Date Time Provider Department Center 05/23/2022 10:[address] [facility] DX ROOM [address] [facility] Rad 05/23/2022 10:45 AM Radha Omalley MD [facility] ORTH 3A [facility] If you have questions or concerns: Saturday through Saturday, 8 AM - 5 PM, please call Radha Omalley MD, MD's office at . If it is after 5 PM or on the weekend, please call and ask to speak with the Orthopedic resident on-call. documented in this encounter Medications at Time of Discharge [...] Tablet Take by mouth 2 times daily. oxyCODONE (Roxicodone) 5 mg Tablet Take 1 tablet by mouth every 4 hours as needed for Pain (acute postop surgical pain). 20 tablet 05/10/2022 07/04/2022 azelastine (ASTELIN) 137 mcg (0.1 %) Aerosol, [place] 1 spray by Nasal route 2 times daily. Use in each nostril as directed 05/19/2024 documented as of this encounter Progress Notes * Izzy Wan RN - 05/10/2022 7:04 PM EDT Discharge instructions and medications reviewed with patient and escort by LINDA Wilson. They verbalized understanding. All questions answered and written copy sent home with patient. Prescription reviewed by Katie and they are aware to sheepskin pickler at [facility]. Patient/escort encouraged to call with questions or concerns. Patient wheeled to car for discharge accompanied by [facility] staff member. documented in this encounter H&P Notes * Radha Omalley MD - 05/10/2022 1:12 PM EDT ORTHOPEDIC PRE-OPERATIVE HISTORY AND PHYSICAL for ADMISSION, OBSERVATION OR PROCEDURE Date of : 1965 Age: 56 y.o. PCP: Genie Abdullahi MD Presenting Diagnosis/Chief Complaint: right ankle posttraumatic arthritis History of Present Illness: Chandrika Casanova is a 56 y.o. female who presents for pre-operative examination. Please see Dr. Omalley's note for full details of the patient's specific problem. Patient denies any changes since last seen in clinic. Denies fevers, chills, headache, dizziness, chest pain, or shortness of breath. Review of Systems: complete 10 system ROS performed with pertinent findings below. Pertinent items are noted in HPI. PMHx: Patient Active Problem List Diagnosis Code ??? Diabetes mellitus type 1.5, managed as type 2 E13.9 ??? Nevus D22.9 ??? Low back pain M54.50 ??? Lumbar herniated disc M51.26 Past Medical History: Diagnosis Date ??? Arthritis ??? Back pain 04/09/2013 ??? Diabetes mellitus ??? Migraine Past Surgical History: Procedure Laterality Date ??? APPENDECTOMY ??? JOINT REPLACEMENT ??? PRO LAMINOTOMY, LUMBAR DISK, 1 INTRSP 08/24/2013 LAMINOTOMY, DECOMPRESSION, FORAMINOTOMY, LUMBAR performed by Sal Phan MD at [facility] MAIN OR ??? PRO MICROSURG TECHNIQUES, REQ OPER MICROSCOPE 08/24/2013 MICROSCOPE USE performed by Sal Phan MD at [facility] MAIN OR ??? TONSILLECTOMY Home Medications: Medications Prior to Admission Medication Sig Dispense Refill Last Dose ??? Levemir FlexTouch U-100 Insuln Insulin Pen Inject 50 Units subcutaneously nightly. 05/09/2022 atUnknown time ??? lisinopril (PRINIVIL;ZESTRIL) 5 mg tablet Take 5 mg by mouth daily. 05/09/2022 at Unknown time ??? triamcinolone acetonide (Kenalog) 0.1 % Paste ??? DULoxetine DR (Cymbalta) 20 mg Capsule, Delayed Release(E.C.) Take 20 mg by mouth nightly. ??? azelastine (ASTELIN) 137 mcg (0.1 %) Aerosol, [place] 1 spray by Nasal route 2 times [...] HEADACHE. DO NOT TAKE WITH CELEBREX ??? humaLOG KwikPen 100 unit/mL Insulin Pen ??? OneTouch Delica Plus Lancet 30 gauge Misc ??? Unifine Pentips Plus 31 gauge x 3/16 Needle ??? rosuvastatin (Crestor) 20 mg Tablet Take 20 mg by mouth nightly. ??? celecoxib (CeleBREX) 200 mg Capsule Take 400 mg by mouth daily. ??? omeprazole (PRILOSEC) 20 mg capsule Take 20 mg by mouth daily. ??? aspirin 81 mg EC tablet Take 81 mg by mouth daily. ??? CYANOCOBALAMIN, VITAMIN B-12, ORAL Take 2,000 mcg by mouth daily. ??? calcium-vitamin D3 600 mg-5 mcg (200 unit) Tablet Take by mouth 2 times daily. Allergies: Allergies Allergen Reactions ??? Adhesive Tape Rash ??? Bactrim [Sulfamethoxazole-Trimethoprim] Rash ??? Keflex [Cephalexin] Rash Family History: Non contributory Family History Problem Relation Age of Onset ??? Cancer Mother ??? High Blood Pressure Father ??? Cancer Sister Social History: Social History Socioeconomic History ??? Marital status: Spouse name: None ??? Number of children: None ??? Years of education: None ??? Highest education level: None Occupational History ??? None Tobacco Use ??? Smoking status: Never Smoker ??? Smokeless tobacco: Never Used Substance and Sexual Activity ??? Alcohol use: None Comment: once a year wine coolers ??? Drug use: No ??? Sexual activity: Yes Partners: Male Other Topics Concern ??? None Social History Narrative ??? None Social Determinants of Health Financial Resource Strain: Not on file Food Insecurity: Not on file Transportation Needs: Not on file Physical Activity: Not on file Housing Stability: Not on file Physical Exam: VITALS: Temperature Temp: 36.3 ??C (97.3 ??F) Heart Rate Heart Rate: 92 Blood Pressure BP: 142/89 Respiratory Rate Resp: 16 SpO2 SpO2: 97 % No intake/output data recorded. General: alert, appears stated age and cooperative Pulmonary: equal, clear breath sounds bilaterally and no crepitus Cardiovascular: Regular rate and rhythm Assessment and Plan: 56 y.o. female with the above problem, plan to proceed to OR with Dr. Omalley forright ankle HWR removal and total ankle arthroplasty. Patient Pharmacy for outpatient medications: [facility], oxy documented in this encounter Miscellaneous Notes * Brief Op Note - Jonna Valenzuela MD - 05/10/2022 7:04 PM EDT Brief Operative Note Patient Name: Chandrika Casanova : [id number] MR#: [id number] Case Date: 05/10/2022 Surgeon: Surgeon(s) and Role: * Radha Omalley MD - Primary * Jonna Valenzuela MD - Resident Preoperative diagnosis: Right end stage ankle arthritis Postoperative diagnosis: Right end stage ankle arthritis Procedure(s) (LRB): TOTAL ANKLE ARTHROPLASTY (WRVU 14.42) (Right) REMOVAL OF IMPLANT, DEEP, ANKLE (WRVU 5.96) (Right) Anesthesia: General per anesthesia Findings: tibiotalar arthritis; evidence of prior hardware from prior ankle fracture ORIF, s/p removal of hardware and total ankle arthroplasty Complications: none Estimated Blood Loss: 67 mL* No values recorded between 05/10/2022 1:59 PM and 05/10/2022 5:02 PM * Specimens removed during surgery: None Fluids: Intraprocedure Crystalloid Total Intake Lactated Ringers 1100.00 mL clindamycin (Cleocin) 600 mg in dextrose 5% 50 mL infusion 50.00 mL Total Intake 1150 mL Output Blood Loss 67 mL Total Output 67 mL Net Net Volume 1083 mL PRBCs: none (See Anesthesia Record/Report for Other Blood Products) Urine Output: (no urine output recorded) Drains: none Disposition: awakened from anesthesia, extubated and taken to the recovery room in a stable condition, having suffered no apparent untoward event. Condition: doing well without problems (Please see the Surgical Encounter Summary for any Implant and Specimen details pertinent to this patient.) Surgical Infection Prevention Bundle Used? N/A * Op Note - Radha Omalley MD - 05/10/2022 1:59 PM EDT [facility] Operative Note Patient Name: Chandrika Casanova : [id number] MR#: [id number] Case Date: 05/10/2022 Surgeon: Surgeon(s) and Role: * Radha Omalley MD - Primary * Jonna Valenzuela MD - Resident Amilcar Spears, MS3 Preoperative diagnosis: 1. Right end stage ankle arthritis 2. Right ankle retained hardware Postoperative diagnosis: 1. Right end stage ankle arthritis 2. Right ankle retained hardware Principal Procedures: 1. Right total ankle arthroplasty with Inbone II system 2. Right fibular hardware removal 3. Right tibial hardware removal Anesthesia: General Estimated Blood Loss: 67 mL Specimens removed during surgery: None Drains: * No LDAs found * Surgical Closure: Primary Closure - skin incision is completely closed without any wires, carmelo, drains or other devices Disposition: awakened from anesthesia, extubated and taken to the recovery room in a stable condition, having suffered no apparent untoward event. Condition: doing well without problems (Please see the Surgical Encounter Summary for any Implant and Specimen details pertinent to this patient.) HPI/Surgical Indications: The patient is a 56-year-old female with a history of remote trauma to her ankle that necessitated open reduction and internal fixation. She has gone on to develop end-stageposttraumatic arthritis within the ankle joint. Additionally, her hardware is quite symptomatic. After exhaustion of conservative measures including bracing, corticosteroid injections and activity modification, the patient wished to proceed with surgical intervention. Specific risks discussed with the patient include the risk of infection, bleeding, damage to adjacent structures, implant failure,periprosthetic fracture, stiffness, implant subsidence, blood clots and need for further procedures. The patient signed an informed consent. Procedure Description: The patient was brought to the operating room and surgical timeout was performed. The surgical sitewhich been marked in the preoperative area with the patient's consent was matched to the consent inthe operative suite. The entire team was in accordance as to the appropriate side, site, patient and procedure. General anesthesia was induced and the patient was positioned in the supine position with a bump underneath the operative hip. All bony prominences were padded and the upper extremities were carefully positioned and padded.The right lower extremity was prepped and draped in the usual sterile manner with an unsterile tourniquet underlying at the thigh. The leg was elevated, exsanguinate d and the tourniquet was elevated to 250 mmHg. A longitudinal incision was made midline on the anterior aspect of the ankle, dissecting sharply through skin and bluntly through subcutaneous tissues down to the extensor retinaculum which was incised in line with the skin incision. Blunt dissection was carried out between the tibialis anterior and the extensor hallucis longus, taking care to avoid the adjacent neurovascular bundle. Once down to the tibiotalar joint, I dissected subperiosteally medially and laterally to fully expose the distal tibia and tibiotalar joint. I then carefully denudedthe anterior surface of the distal tibia of fibrous tissue and periosteum until I was able to fit the alignment guide onto the anterior aspect of the distal tibia. I provisionally pinned this guide and checked the alignment confirming appropriate alignment on AP fluoroscopy. It was at this time I realized that the medial malleolar screws were going to be in the way of my tibial cuts. I therefore made a longitudinal incision through previous longitudinal incision over the medial malleolus. I dissected sharply through skin and bluntly through subcutaneous tissues down to the 2 medial malleolar screws. These were both removed after using combination of curette and rongeur to debride the overlying bone. I then used these 2 pins to position the distal tibial cutting guide and cross pinned thisinto place. After drilling the antirotation notch, I conducted the tibial cut, plantarflexing the hallux to take tension off of the FHL tendon at the back of the ankle. Once the cuts were made, the cut guide was removed and the cut was finished using the corner chisel. The distal tibial bone was attempted to be removed but continued to be hung up by the prominent posterior ledge of the tibia and therefore, I used an osteotome to cut the anterior one third of the resected bone off and remove that after the talar resection. Attention was then turned to the talar cut. I carefully denuded the anterior talar body and talar neck of cartilage and fibrous tissue until I was able to fit the talar alignment guide onto the anterior aspect of the talus. Once confirmed that this was an appropriate positioning, I placed the oblique pin and then my cutting guide pins. Appropriate positioning was confirmed on lateral fluoroscopy.Once I placed the cutting guide, appropriate positioning of the cut and gutter pins were confirmed on AP fluoroscopy. Once the gutter pins had been placed, I conducted my talar cut. The talar bone was removed with the assistance of wide flat osteotome. The pins were removed and I used the saw to finish the medial and lateral edges of the talar cut. I then used the in bone screw to remove the remainder of the tibial bone. At this time, I was able to see the capsule at the back of the joint whichwas thickened. I carefully removed the posterior capsule sharply. Care was taken to avoid damage tothe underlying neurovascular bundle and tendons. I then placed the alignment block and after pinning the block into place, I was able to place the C-clamp. Using the plantar attachment of the C-clamp, I templated and conducted my plantar incision. Dissection was carried sharply through skin and bluntly through subcutaneous tissues down to the plantar aspect of the calcaneus. Through the plantar bushing, I inserted my trocar down to the bone. I then drilled through the calcaneus and talus into the drill capture. Confirming appropriate positioning on AP and lateral fluoroscopy, I drilled up into the tibia. I then removed the drill capture andsequentially reamed the tibia up to a size 14 reamer. I used AP and lateral fluoroscopy to confirm a ppropriate positioning. Next, I removed the alignment block and C-clamp and templated the size of the tibial tray. Care was taken to make sure that I had appropriate anterior coverage. After copious irrigation, the tibial component was assembled and built up into the tibia. The tibial tray was impacted into the tibial base, taking care to avoid injury to the tibial cut. The Mendoza taper between the tibial tray and base was confirmed to be engaged by visualizing the alignment [place] on AP fluoroscopy and confirming that it was blunted. The tibial component was then impacted into the tibia. I then placed the trial talar and liner components and ranged the ankle to find the appropriate positioning of the talar component. I confirmed appropriate sizing on AP and lateral fluoroscopy, adjusting sizing and positioning as appropriate. I then pinned the talar component into place using the skinny pins. At this point, I took care to inspect both the medial and lateral gutters to make sure that they were clear of debris. I used a combination of reciprocating saw, rongeur and curette to debride both medial and lateral gutters to make sure that they were clear of impinging osteophytes and debris. I then used the short peg reamer to drill the short pegs. I removed the trial liner and, with a freer elevator holding down the back of the talar trial, I placed the central peg guidewire. I then removed the trial talar dome and reamed the central peg. The guidewire was removed and after copious irrigation, the talar component was impacted into place. I trialed with the previous liner and adjusted as necessary. I then used the implantation device to deliver the liner into place and impacted it to finish off the delivery. After copious irrigation, I assessed range of motion of the ankleand found that the ankle was able to plantar flex to 30 degrees and dorsiflex to 10 degrees. I therefore did not feel that a tendoachilles lengthening was necessary. Range of motion was smooth with no gapping medially or laterally, confirming appropriate soft tissue balance. I then turned my attention to removing the fibular hardware. A longitudinal incision was made through previous longitudinalincision just posterior lateral to the fibula. Dissection was carried sharply through skin and bluntly through subcutaneous tissues down to the fibular plate. The fibular plate was fully exposed and then removed after the screws were removed. With this plate out, I was then able to obtain final imaging. Wounds were then copiously irrigated and closed in a layered fashion with 0 Vicryl for the ankle capsule, 2-0 Vicryl for the extensor retinaculum and tendon sheath, 4-0 Vicryl for subcutaneous tissues and 4-0 nylon for the skin. All wounds were dressed with Xeroform, 4 x 4's, cast padding placed into a bulky U splint. The patient was then awakened from general anesthesia and transferred to the recovery room bed in the recovery room in a stable state. Complications: None Postoperative plan: The patient will be nonweightbearing for 2 weeks. They will return to clinic in2 weeks time at which point we will take nonweightbearing ankle films and remove the splint. They will be placed into a boot and begin weightbearing as tolerated in the boot. We will also start physical therapy to work aggressively on dorsiflexion and plantarflexion. The patient will follow a standard boot weaning protocol after 2 weeks postop. They will then return to clinic at 6 weeks postop for repeat weightbearing ankle films. Implants: Implant Name Type Inv. Item Serial No. Carpet Installer Lot No. LRB No. Used Action GRAFT BONE FILLER 1CC DBM INJECTABLE PUTTY ALLOMATRIX ([id number]) (AutoReq) - [id number] IMPLANTS GRAFT BONE FILLER 1CC DBM INJECTABLE PUTTY ALLOMATRIX ([id number]) (AutoReq) [id number] [employer] - [employer] SURG Right 1 Implanted COMPONENT TIBIAL ANKLE JOINT 16MM RT LT INBONE ([id number]) (AutoReq) - [id number] IMPLANTS COMPONENT TIBIAL ANKLE JOINT 16MM RT LT INBONE ([id number]) (AutoReq) [facility] [id number] Right 1 Implanted COMPONENT TIBIAL ANKLE JOINT 16MM RT LT INBONE ([id number]) - [id number] IMPLANTS COMPONENT TIBIAL ANKLE JOINT 16MM RT LT INBONE ([id number]) [facility] [place] - [employer] [id number] Right 1 Implanted COMPONENT TIBIAL ANKLE JOINT SZ 3 RT LONG INBONE ([id number]) (AutoReq) - [id number] IMPLANTS COMPONENT TIBIAL ANKLE JOINT SZ 3 RT LONG INBONE ([id number]) (AutoReq) [facility] [place] [facility] [employer] [id number] Right 1 Implanted COMPONENT SUBTALAR ANKLE JOINT 10MM SZ 1 LRG INBONE ([id number]) (AutoReq) - [id number] IMPLANTS COMPONENT SUBTALAR ANKLE JOINT 10MM SZ 1 LRG INBONE ([id number]) (AutoReq) [facility] [place] [facility] [employer] [id number] Right 1 Implanted DOME TALAR SULCUS ANKLE JOINT SZ 3 INBONE ([id number]) (AutoReq) - [id number] IMPLANTS DOME TALAR SULCUS ANKLE JOINT SZ 3 INBONE ([id number]) (AutoReq) [facility] - [employer] [id number] Right 1 Implanted INSERT TIBIAL ANKLE JOINT 8MM SZ 3 RT LT POLY ([id number]) (AutoReq) - [id number] IMPLANTS INSERT TIBIAL ANKLE JOINT 8MM SZ 3 RT LT POLY ([id number]) (AutoReq) [facility] - [employer] [id number] Right 1 Implanted Surgical Infection Prevention Bundle Used? No Attestation: Case Date: 05/10/2022 I was present and I participated during the entire procedure (does not need to include opening and closing). Radha Omalley MD 05/10/2022 documented in this encounter Plan of Treatment Upcoming Encounters Date Type Department Care Team (Latest Contact Info) Description 08/25/2024 8:10 AM EST Hospital Encounter [place] [address] Marvin Ash MD [facility] [place] [address] 08/25/2024 8:10 AM EST - 08/25/2024 9:30 AM EST Surgery [place] [address] Marvin Ash MD [facility] [place] [address] NEUROPLASTY &/OR TRANSPOSITION, ULNAR NERVE AT ELBOW (WRVU 7.26) 08/25/2024 9:40 AM EST Office Visit Dermatology at [facility] [address] [place] [address] Gary Combs MD [facility] [place] [address] 09/10/2024 10:30 AM EST Office Visit [place] [address] Tess Florez PA [facility] [place] [address] Scheduled Procedures Name Priority Associated Diagnoses Date/Ti [...] Name Priority Date/Time Associated Diagnosis Comments XR FLUORO NO RAD <1HR - OR USE Routine 05/10/2022 4:28 PM EDT POCT GLUCOSE Routine 05/10/2022 2:46 PM EDT Removal Deep Implant ([id number]) 05/10/2022 1:32 PM EDT Post-traumatic osteoarthritis of right ankle Arthroplasty Ankle With Implant ([id number]) 05/10/2022 1:32 PM EDT Post-traumatic osteoarthritis of right ankle REMOVAL OF IMPLANT,ANKLE Routine 05/10/2022 12:31 PM EDT Post-traumatic osteoarthritis of right ankle TOTAL ANKLE ARTHROPLASTY Routine 05/10/2022 12:31 PM EDT Post-traumatic osteoarthritis of right ankle documented in this encounter Results * XR Fluoro No Rad <1Hr - OR Use (05/10/2022 4:28 PM EDT) Narrative Dicom, Auditing User - 05/10/2022 4:29 PM EDT This exam is auto-finalizing. No interpretation was done. Radha Omalley MD IMG FLUORO ORDERABLE S * POCT Glucose (05/10/2022 2:46 PM EDT) Glucose, POC 73 65 - 199 mg/dL [facility] Comment: Supplemental ranges: <140 mg/dL before meals <180 mg/dL all other times of the day Blood 05/10/2022 2:46 PM EDT 05/10/2022 2:46 PM EDT Radha Omalley MD POINT OF CARE TEST O RDERABLES [facility] [place] [address] documented in this encounter Visit Diagnoses Diagnosis Post-traumatic osteoarthritis of right ankle Post-traumatic osteoarthritis of right ankle Carpal tunnel syndrome on right Carpal tunnel syndrome Cubital tunnel syndrome on right Lesion of ulnar nerve documented in this encounter Administered Medications Inactive Administered Medications - up to 3 most recent administrations Medication Order MAR Action Action Date Dose Rate Site acetaminophen (Tylenol) tablet 1,000 mg 1,000 mg, Oral, ONCE, 1 dose, On Cassandra 05/10/22 at 1330, Maximum dose of acetaminophen is 4000 mg from all sources in 24 hours. When ordered for pain, acetaminophen should be given even when other ordered pain medications are indicated. , Day of Surgery (Day of Procedure), Routine Given 05/10/2022 1:26 PM EDT 1,000 mg fentaNYL (PF) (50 mcg/mL) injection 50 mcg 50 mcg, Intravenous, EVERY 5 MIN PRN, Starting on Cassandra 05/10/22 at 1231, Until Cassandra 05/10/22 at 1905, Pain, or prior to injection of local anesthetic., Hold for respiratory rate less than 8 breaths per minute. (maximum dose 200 mcg) , Intra-Operative (Intra-Procedure), Routine Given 05/10/2022 1:21 PM EDT 12.5 mcg midazolam (pf) (Versed) (1 mg/mL) injection 1 mg 1 mg, Intravenous, EVERY 5 MIN PRN, Starting on Cassandra 05/10/22 at 1231, Until Cassandra 05/10/22 at 1905, Sleep, or prior to injection of local anesthetic, Hold for delirium/agitation. (Maximum dose 5 mg)., Intra-Operative (Intra-Procedure), Routine Given 05/10/2022 1:18 PM EDT 1 mg documented in this encounter Active and Recently Administered Medications Times are shown in EDT. Scheduled Medication Order 05/08/2022 05/09/2022 05/10/2022 acetaminophen (Tylenol) tablet 1,000 mg (COMPLETED) 1,000 mg, Oral, ONCE, 1 dose, On Cassandra 05/10/22 at 1330, Maximum dose of acetaminophen is 4000 mg from all sources in 24 hours. When ordered for pain, acetaminophen should be given even when other ordered pain medications are indicated. , Day of Surgery (Day of Procedure), Routine 1326 (Given - Provid er: Genesis Brown RN) clindamycin (Cleocin) 600 mg in dextrose 5% 50 mL infusion (COMPLETED) 600 mg, Intravenous, ONCE, 1 dose, On Cassandra 05/10/22 at 1345, Administer over 20 Minutes, Day of Surgery (Day of Procedure), Indication for (Active or Suspected): Prophylaxis 1341 (Given - Provid er: Fadi Matos CRNA) PRN Medication Order 05/08/2022 05/09/2022 05/10/2022 fentaNYL (PF) (50 mcg/mL) injection 50 mcg (CANCELED) 50 mcg, Intravenous, EVERY 5 MIN PRN, Starting on Cassandra 05/10/22 at 1231, Until Cassandra 05/10/22 at 1905, Pain, or prior to injection of local anesthetic., Hold for respiratory rate less than 8 breaths per minute. (maximum dose 200 mcg) , Intra-Operative (Intra-Procedure), Routine 1321 (Given - Provid er: Genesis Brown RN) midazolam (pf) (Versed) (1 mg/mL) injection 1 mg (CANCELED) 1 mg, Intravenous, EVERY 5 MIN PRN, Starting on Cassandra 05/10/22 at 1231, Until Cassandra 05/10/22 at 1905, Sleep, or prior to injection of local anesthetic, Hold for delirium/agitation. (Maximum dose 5 mg)., Intra-Operative (Intra-Procedure), Routine 1318 (Given - Provid er: Genesis Brown RN) documented in this encounter Care Teams Fish Liver Sorter Relationship Specialty Start Date End Date Genie Abdullahi MD [facility] [address] [place] [address] PCP - General 02/23/11 documented as of this encounter
--- OUTSIDE RECORDS SUMMARY | 2024-07-17 08:24 | XMS_ITS | Encounter Summary ---
[place] [address] Care Team Providers Care Broach Setter Name Role Phone Genie Abdullahi MD Primary Care Provider [phone] Encounter Details Date Type Department Care Team (Latest Contact Info) Description 06/29/2022 Travel Social History Tobacco Use Types Packs/Day [...] AM EST Hospital Encounter [place] [address] [facility] [place] [address] 08/25/2024 8:10 AM EST - 08/25/2024 9:30 AM EST Surgery [place] [phone] Marvin Ash MD [facility] [place] [address] NEUROPLASTY &/OR TRANSPOSITION, ULNAR NERVE AT ELBOW (WRVU 7.26) 08/25/2024 9:40 AM EST Office Visit Dermatology at [address] [place] [address] [facility] [place] [address] 09/10/2024 10:30 AM EST Office [place] [address] [facility] [place] [address] Scheduled Procedures Name Priority Associated Diagnoses Date/Ti [...] on filedocumented in this encounter Care Teams Broach Setter Relationship Specialty Start Date End Date Genie Abdullahi MD [address] [place] [address] PCP - General 02/23/11 documented as of this encounter
--- OUTSIDE RECORDS SUMMARY | 2024-07-17 08:24 | XMS_ITS | Encounter Summary ---
[place] [address] Care Team Providers Care Correctional Facility Nurse Name Role Phone Genie Abdullahi MD Primary Care Provider [phone] Reason for Referral * Diagnostic Test (Routine) - Closed Specialty Diagnoses / Procedures Referred By Gina terrell Referred To Contact Radiology Diagnoses Post-traumatic osteoarthritis of right ankle Procedures CT Ankle wo Contrast Right (Generic) Radha Omalley MD [facility] [place] [address] [place] [address] Referral ID Status Reason Start Date Expiration Date V isits Requested Visits Authorized [id number] Closed Specialty Service Requested 02/09/2022 08/08/2022 1 1 Reason for Visit * Reason Comments Right Ankle Pain Right ankle pain dis cuss TAA Encounter Details Date Type Department Care Team (Latest Contact Info) Description 01/10/2022 4:00 PM EDT Office [place] [address] Radha Omalley MD [facility] [place] [address] Post-traumatic osteoarthritis of right ankle Social History [...] Sign Reading Time Taken Comments Blood Pressure 129/70 01/10/2022 4:06 PM EDT Pulse 80 01/10/2022 4:06 PM EDT Temperature - - Respiratory Rate - - Oxygen Saturation - - Inhaled Oxygen Concentration - - Weight 81.6 kg (180 lb) 01/10/2022 4:06 PM EDT Height 170.2 cm (5' 7) 01/10/2022 4:06 PM EDT Body Mass Index 28.19 01/10/2022 4:06 PM EDT documented in this encounter Progress Notes * Radha Omalley MD - 01/10/2022 4:00 PM EDT PATIENT NAME: Chandrika Casanova AGE: 56 y.o. MR#: [id number] DATE OF VISIT: 01/10/2022 STAFF: Radha Omalley MD FOLLOW UP FOR: Right ankle pain HISTORY OF PRESENT ILLNESS: Ms. Casanova is a 56 y.o. female who comes into clinic today for follow up of her right ankle. She and I last saw each other in clinic and discussed the possibility of doinga total ankle arthroplasty with hardware removal. She is here today to ask more questions and startmoving forward with the process. She continues to have significant pain both in the right ankle and also around her hardware. Medications and Allergies were reviewed in eD-H [...] LUMBAR performed by Sal Phan MD at [facility] MAIN OR ??? PRO MICROSURG TECHNIQUES, REQ OPER MICROSCOPE 08/24/2013 MICROSCOPE USE performed by Sal Phan MD at [facility] MAIN OR ??? TONSILLECTOMY FAMILY HX: Family History Problem [...] Treatments, PreExisting Condition, Health Habits, About You 01/10/2022 PROMIS-10 General Health Fair PROMIS-10 Quality of Life Good PROMIS-10 Physical Health Fair PROMIS-10 Mental Health Very Good PROMIS-10 Social Activity Good PROMIS-10 Everyday Activities Mostly PROMIS-10 Pain 7 PROMIS-10 Fatigue Moderate PROMIS-10 Social Roles Good PROMIS-10 Anxious or Depressed Rarely PROMIS PHYSICAL SCORE (range 16-68) 37.4 PROMIS MENTAL SCORE (range 21-68) 48.3 Treatments Tried Regular exercise, Brace Prior Surgery Original surgery in October 1984 inserted metal in my right ankle. Nothing has been done to it since. HOOS JR Scores - MAUREEN Grade - [...] Household Income - # People Supported - Bulgarian, , - Race - Health Literacy - Currently working - Current job situation - [employer] Response 09/06/2021 HOOS JR Scores 70.43 OSWESTRY DISABILITY INDEX - Spine [employer] Response 09/06/2021 Oswestry (MARY LOU) Score - Neck (NDI) Score - HOOS JR Scores 70.43 PHYSICAL EXAM: Ms. Casanova is a 56 y.o. female General appearance: in no acute distress, alert, cooperative Psych: cooperative with exam, appropriate Head: normocephalic, atraumatic EENT: EOMI grossly intact Neck: supple, trachea midline Cardiac: regular rate and rhythm by peripheral pulse Lungs: no extra work of breathing Musculoskeletal: Examination of the right ankle reveals significant stiffness of the tibiotalar joint as well as tenderness to palpation about the tibiotalar joint and over both the medial malleolus and the fibula. DIAGNOSTIC STUDIES: No new films were taken today ASSESSMENT: Posttraumatic right ankle end-stage arthritis PLAN: At this time, the patient wishes to proceed with a total ankle arthroplasty. She and I spent some time talking about the time around the surgery and what she should expect. She does want to proceed and therefore we will work on getting her set up for her CT prophecy as well as work on getting her on the schedule for both the hardware removal as well as a replacement. The patient expressed agreement with and understanding of this plan of care. The patient understands to contact us if they have any other questions or concerns. The above documentation was completed using [employer] voice recognition software. Radha Omalley MD Department of Orthopaedics [facility] Pager: [phone] documented in this encounter Plan of Treatment Upcoming Encounters Date Type Department Care Team (Latest Contact Info) Description 08/25/2024 8:10 AM [facility] Hospital Encounter Outpatient [place] [address] Marvin Ash MD [facility] DR [place] [address] 08/25/2024 8:10 AM EST - 08/25/2024 9:30 AM EST Surgery [place] [address] Marvin Ash MD [facility] DR [place] [address] NEUROPLASTY &/OR TRANSPOSITION, ULNAR NERVE AT ELBOW (WRVU 7.26) 08/25/2024 9:40 AM EST Office Visit Dermatology at [facility] [address] [place] [address] Gary Combs MD [facility] DR [facility] [place] [address] 09/10/2024 10:30 AM EST Office [place] [phone] Tess Florez PA [facility] [place] [address] Scheduled Procedures Name Priority Associated Diagnoses Date/Ti me NEUROPLASTY &/OR TRANSPOSITION, ULNAR NERVE AT ELBOW (WRVU 7.26) Carpal tunnel syndrome on right Cubital tunnel syndrome on right 08/25/2024 8:10 AM EST ENDOSCOPY WRIST W/ RELEASE TRANSVERSE CARPAL LIGAMENT (WRVU 6.39) Carpal tunnel syndrome on right Cubital tunnel syndrome on right 08/25/2024 8:10 AM EST documented as of this encounter Results * CT Ankle wo Contrast Right (Generic) (02/12/2022 1:54 PM EDT) Anatomical Region Laterality Modality Ankle Right Computed Tomogra phy 02/12/2022 2:09 PM EDT Impressions 02/12/2022 2:49 PM EDT Images obtained for surgical planning. Thank you for letting us participate in the care of this patient. ??If you are a health care provider and have any questions regarding this report, please contact the number below. ??For patients who have questions please contact the health after school caregiver that requested your imaging first. ? Narrative 02/12/2022 2:49 PM EDT EXAMINATION: CT ANKLE WO CONTRAST RIGHT (GENERIC) CLINICAL HISTORY: Surgical planning for TAA, entered by ordering service TECHNIQUE: axial CT images of the RIGHT ankle and knee were acquired per cat wagon operator protocol. COMPARISON: September 2021 FINDINGS: ANKLE OSSEOUS STRUCTURES: Medial lateral malleoli-ORIF with healed fracture. No hardware complications. JOINTS: Tibiotalar joint-congruent ankle mortise. Advanced osteoarthropathy with severe loss of superior clear space accompanied by subchondral cysts and subchondral sclerosis. Subtalar joints-small osteophytes and mildly narrowed joint space. TENDONS: No displaced tendon seen. MUSCLES: Normal bulk KNEE No focal lesion of bone or soft tissue mass. Trace fluid in knee joint. Procedure Note Virgie Patel MD - 02/12/2022 EXAMINATION: CT ANKLE WO CONTRAST RIGHT (GENERIC) CLINICAL HISTORY: Surgical planning for TAA, entered by ordering service TECHNIQUE: axial CT images of the RIGHT ankle and knee were acquired per cat wagon operator protocol. COMPARISON: September 2021 FINDINGS: ANKLE OSSEOUS STRUCTURES: Medial lateral malleoli-ORIF with healed fracture. No hardwarecomplications. JOINTS: Tibiotalar joint-congruent ankle mortise. Advanced osteoarthropathy withsevere loss of superior clear space accompanied by subchondral cysts andsubchondral sclerosis. Subtalar joints-small osteophytes and mildly narrowed joint space. TENDONS: No displaced tendon seen. MUSCLES: Normal bulk KNEE No focal lesion of bone or soft tissue mass. Trace fluid in knee joint. IMPRESSION Images obtained for surgical planning. Thank you for letting us participate in the care of this patient. If youare a health care provider and have any questions regarding this report,please contact the number below. For patients who have questions please contactthe health after school caregiver that requested your imaging first. Radha Omalley MD IMG CT ORDERABLES documented in this encounter Visit Diagnoses Diagnosis Post-traumatic osteoarthritis of right ankle Post-traumatic osteoarthritis of right ankle Carpal tunnel syndrome on right Carpal tunnel syndrome Cubital tunnel syndrome on right Lesion of ulnar nerve documented in this encounter Care Teams Correctional Facility Nurse Relationship Specialty Start Date End Date Genie Abdullahi MD [address] [place] [address] PCP - General 02/23/11 documented as of this encounter
--- OUTSIDE RECORDS SUMMARY | 2024-07-17 08:24 | XMS_ITS | Encounter Summary ---
[place] [address] Care Team Providers Care Services Manager Name Role Phone Genie Abdullahi MD Primary Care Provider [phone] Reason for Referral * Diagnostic Test (Routine) - Closed Specialty Diagnoses / Procedures Referred By Contac t Referred To Contact Radiology Diagnoses Post-traumatic osteoarthritis of right ankle Procedures CT Ankle wo Contrast Right (Generic) Radha Omalley MD [facility] [place] [address] [facility] [place] [address] Referral ID Status Reason Start Date Expiration Date V isits Requested Visits Authorized [id number] Closed Specialty Service Requested 02/09/2022 08/08/2022 1 1 Reason for Visit * Diagnostic Test (Routine) - Closed Specialty Diagnoses / Procedures Referred By Contac t Referred To Contact Radiology Diagnoses Post-traumatic osteoarthritis of right ankle Procedures CT Ankle wo Contrast Right (Generic) Radha Omalley MD [facility] [place] [address] [facility] [place] [address] Referral ID Status Reason Start Date Expiration Date V isits Requested Visits Authorized [id number] Closed Specialty Service Requested 02/09/2022 08/08/2022 1 1 Encounter Details Date Type Department Care Team (Latest Contact Info) Description 02/12/2022 1:25 PM EDT - 02/12/2022 11:59 PM EDT Hospital Encounter CT Scan at [facility] [place] [address] Radha Omalley MD [facility] DR [place] [address] Post-traumatic osteoarthritis of right ankle Discharge Disposition: [...] Sig Dispensed Refills Start Date End Date OneTouch Verio test strips Strip 07/21/2021 Estring [...] Tablet Take by mouth 2 times daily. aspirin 81 mg EC tablet Take 81 mg by mouth daily. 05/10/2022 ibuprofen (ADVIL;MOTRIN) 200 mg tablet Take 200 mg by mouth every 6 hours as needed. 022 documented as of this encounter Plan of Treatment Upcoming Encounters Date Type Department Care Team (Latest Contact Info) Description 08/25/2024 8:10 AM EST Hospital Encounter [place]patient [place] [address] Marvin Ash MD [facility] [place] [address] 08/25/2024 8:10 AM EST - 08/25/2024 9:30 AM EST Surgery [place] [address] Marvin Ash MD [facility] [place] [address] NEUROPLASTY &/OR TRANSPOSITION, ULNAR NERVE AT ELBOW (WRVU 7.26) 08/25/2024 9:40 AM EST Office Visit Dermatology at [address] [phone] Gary Combs MD [facility] DR [address] [place] [address] 09/10/2024 10:30 AM EST Office [place] [phone] Tess Florez PA [facility] [place] [address] Scheduled Procedures Name Priority Associated Diagnoses Date/Ti [...] Procedure Name Priority Date/Time Associated Diagnosis Comments CT ANKLE WO CONTRAST RIGHT Routine 02/12/2022 1:54 PM EDT Post-traumatic osteoarthritis of right ankle documented in this encounter Results * CT Ankle wo [...] who have questions please contact the health child care provider that requested your imaging first. ? Electronically signed by: Virgie Patel MD, [facility] ([phone]), at 02/12/2022 2:49 PM Narrative 02/12/2022 2:49 PM EDT EXAMINATION: CT ANKLE WO CONTRAST RIGHT (GENERIC) CLINICAL HISTORY: Surgical planning for TAA, entered by ordering service TECHNIQUE: axial CT images of the RIGHT ankle and knee were acquired per endoscopy registered nurse protocol. COMPARISON: September 2021 FINDINGS: ANKLE OSSEOUS [...] RIGHT ankle and knee were acquired per endoscopy registered nurse protocol. COMPARISON: September 2021 FINDINGS: ANKLE OSSEOUS [...] patients who have questions please contactthe health child care provider that requested your imaging first. Electronically signed by: Virgie Patel MD, [facility]([phone]), at 02/12/2022 2:49 PM Radha Omalley MD IMG CT ORDERABLES documented in this encounter Visit Diagnoses Diagnosis Post-traumatic osteoarthritis of right ankle Carpal tunnel syndrome on right Carpal tunnel syndrome Cubital tunnel syndrome on right Lesion of ulnar nerve documented in this encounter Care Teams Services Manager Relationship Specialty Start Date End Date Genie Abdullahi MD [facility] [address] [place] [address] PCP - General 02/23/11 documented as of this encounter
--- OUTSIDE RECORDS SUMMARY | 2024-07-17 08:24 | XMS_ITS | Encounter Summary ---
Author Organization [facility] Address [facility] [place] [address] Care Team Providers Care Hammer Repairer Name Role Phone Genie Abdullahi MD Primary Care Provider [phone] Encounter Details Date Type Department Care Team (Latest Contact Info) Description 09/14/2021 11:10 AM EST - 09/14/2021 11:59 PM [facility] Hospital Encounter XRay at [address] [place] [address] Radha Omalley MD [facility] [place] [address] Post-traumatic osteoarthritis of right ankle Discharge Disposition: [...] Tablet Take by mouth 2 times daily. insulin glargine (Lantus) 100 unit/mL (3 mL) pen Inject 22 Units subcutaneously nightly. 01/17/20 insulin aspart U-100 (NovoLOG) Insulin Pen Inject 4 Units subcutaneously 3 times daily (with meals). Based on patient 01/16/2022 aspirin 81 mg EC tablet Take 81 mg by mouth daily. 05/10/2022 ibuprofen (ADVIL;MOTRIN) 200 mg tablet Take 200 mg by mouth every 6 hours as needed. 022 documented as of this encounter Plan of Treatment Upcoming Encounters Date Type Department Care Team (Latest Contact Info) Description 08/25/2024 8:10 AM [facility] Hospital Encounter Outpatient [place] [address] Marvin Ash MD [facility] [place] [address] 08/25/2024 8:10 AM EST - 08/25/2024 9:30 AM EST Surgery Outpatient [place] [address] Marvin Ash MD [facility] [place] [address] NEUROPLASTY &/OR TRANSPOSITION, ULNAR NERVE AT ELBOW (WRVU 7.26) 08/25/2024 9:40 AM EST Office Visit Dermatology at [facility] [address] [place] [address] Gary Combs MD [facility] [place] [address] 09/10/2024 10:30 AM EST Office Visit [place] [address] Tess Florez PA [facility] [place] [address] Scheduled Procedures Name Priority Associated Diagnoses Date/Ti [...] XR ANKLE MIN 3 VIEWS RIGHT Routine 09/14/2021 11:20 AM EST Post-traumatic osteoarthritis of right ankle documented in this encounter Results * XR Ankle Min 3 views Right (Generic) (09/14/2021 11:20 AM EST) Anatomical Region Laterality Modality Ankle Right Digital Radiogra phy Impressions 09/14/2021 3:08 PM EST ORIF of prior bimalleolar fracture without radiographic evidence of complication. Osteoarthropathy of the tibiotalar joint I have personally reviewed the image(s) and the resident's interpretation and agree with the findings, Chaparro Marie MD at 09/14/2021 3:08 PM Thank you for letting us participate in the care of this patient. ??If you are a health care provider and have any questions regarding this report, please contact the number below. ??For patients who have questions please contact the health caregiver services home that requested your imaging first. ? Electronically signed by: Chaparro Marie MD, [facility] ([phone]), at 09/14/2021 3:08 PM Narrative 09/14/2021 3:08 PM EST EXAMINATION: XR ANKLE MIN 3 VIEWS RIGHT (GENERIC) CLINICAL HISTORY: ankle trauma in 1984, obtain weightbearing TECHNIQUE: 3 views RIGHT ankle, weightbearing COMPARISON: None FINDINGS: No acute fracture or dislocation. ORIF of prior distal bimalleolar fracture and anatomic alignment. Fracture lucencies are no longer visualized. Hardware is intact. No adjacent lucency or fracture. Ankle mortise is congruent. Joint space narrowing of the tibiotalar joint with marginal osteophyte formation and subchondral sclerosis. Calcification within the joint space likely representing chondrocalcinosis. Mild tibiotalar effusion. Procedure Note Chaparro Marie MD - 09/14/2021 EXAMINATION: XR ANKLE MIN 3 VIEWS RIGHT (GENERIC) CLINICAL HISTORY: ankle trauma in 1984, obtain weightbearing TECHNIQUE: 3 views RIGHT ankle, weightbearing COMPARISON: None FINDINGS: No acute fracture or dislocation. ORIF of prior distal bimalleolarfracture and anatomic alignment. Fracture lucencies are no longer visualized. Hardwareis intact. No adjacent lucency or fracture. Ankle mortise is congruent. Jointspace narrowing of the tibiotalar joint with marginal osteophyte formation and subchondral sclerosis. Calcification within the joint space likelyrepresenting chondrocalcinosis. Mild tibiotalar effusion. IMPRESSION ORIF of prior bimalleolar fracture without radiographic evidence of complication. Osteoarthropathy of the tibiotalar joint I have personally reviewed the image(s) and the resident's interpretationand agree with the findings, Chaparro Marie MD at 09/14/2021 3:08 PM Thank you for letting us participate in the care of this patient. If youare a health care provider and have any questions regarding this report,please contact the number below. For patients who have questions please contactthe health caregiver services home that requested your imaging first. Electronically signed by: Chaparro Marie MD, [facility]([phone]), at 09/14/2021 3:08 PM Radha Omalley MD IMG DX ORDERABLES documented in this encounter Visit Diagnoses Diagnosis Post-traumatic osteoarthritis of right ankle Carpal tunnel syndrome on right Carpal tunnel syndrome Cubital tunnel syndrome on right Lesion of ulnar nerve documented in this encounter Care Teams Hammer Repairer Relationship Specialty Start Date End Date Genie Abdullahi MD [address] [facility] [address] [place] [address] PCP - General 02/23/11 documented as of this encounter
--- OUTSIDE RECORDS SUMMARY | 2024-07-17 08:24 | XMS_ITS | Encounter Summary ---
Author Organization Formerly [facility] Address [facility] [place] [address] Care Team Providers Care Satellite Dish Repairer Name Role Phone Genie Abdullahi MD Primary Care Provider [phone] Encounter Details Date Type Department Care Team (Latest Contact Info) Description 07/04/2022 1:58 PM EST - 07/04/2022 11:59 PM EST Hospital Encounter XRay at [address] [place] [address] Post-traumatic osteoarthritis of right ankle Discharge Disposition: [...] Tablet Take 1,000 mg by mouth daily. ShopeandoTouch Verio test strips Strip 07/21/2021 Estring 2 [...] azelastine (ASTELIN) 137 mcg (0.1 %) Aerosol, Alvaton 1 spray by Nasal route 2 times daily. Use in each nostril as directed 05/19/2024 documented as of this encounter Plan of Treatment Upcoming Encounters Date Type Department Care Team (Latest Contact Info) Description 08/25/2024 8:10 AM EST Hospital Encounter [place] [address] Marvin Ash MD [facility] [place] [address] 08/25/2024 8:10 AM EST - 08/25/2024 9:30 AM EST Surgery [place] [address] Marvin Ash MD [facility] [place] [address] NEUROPLASTY &/OR TRANSPOSITION, ULNAR NERVE AT ELBOW (WRVU 7.26) 08/25/2024 9:40 AM EST Office Visit Dermatology at [facility] [address] [place] [address] Gary Combs MD [facility] [address] [place] [address] 09/10/2024 10:30 AM EST Office Visit Orthopaedics at [facility] [place] [address] Tess Florez PA [facility] [place] [address] Scheduled Procedures Name Priority Associated Diagnoses Date/Ti [...] XR ANKLE MIN 3 VIEWS RIGHT Routine 07/04/2022 3:14 PM EST Post-traumatic osteoarthritis of right ankle documented in this encounter Results * XR Ankle Min 3 views Right (Generic) (07/04/2022 3:14 PM EST) Anatomical Region Laterality Modality Ankle Right Digital Radiogra phy Impressions 07/04/2022 4:54 PM EST Right total ankle arthroplasty without radiographic evidence of hardware complication. Nonspecific soft tissue swelling of the lower leg and ankle. I have personally reviewed the image(s) and the resident's interpretation and agree with the findings, Janneth Bearden MD at 07/04/2022 4:54 PM Thank you for letting us participate in the care of this patient. ??If you are a health care provider and have any questions regarding this report, please contact the number below. ??For patients who have questions please contact the health landcare facilitator that requested your imaging first. ? Electronically signed by: Janneth Bearden MD, [facility] ([phone]), at 07/04/2022 4:54 PM Narrative 07/04/2022 4:54 PM EST EXAMINATION: XR ANKLE MIN 3 VIEWS RIGHT (GENERIC) CLINICAL HISTORY: s/p R TAA DOS: 05/10/22 (as entered by ordering provider in the order requisition) TECHNIQUE: Weightbearing AP, oblique, and lateral views of the right ankle. COMPARISON: 05/23/2022 FINDINGS: Right total ankle arthroplasty with intact tibial and talar components. No periprosthetic fracture, lucency or subsidence. Unchanged alignment. Punctate radiodensities project over the tibiotalar joint and medial malleolus. Screw ghost tracks in the distal fibula. Moderate soft tissue swelling. There are ghost screw tracks in the distal fibula. Procedure Note Janneth Bearden MD - 07/04/2022 EXAMINATION: XR ANKLE MIN 3 VIEWS RIGHT (GENERIC) CLINICAL HISTORY: s/p R TAA DOS: 05/10/22 (as entered by ordering providerin the order requisition) TECHNIQUE: Weightbearing AP, oblique, and lateral views of the right ankle. COMPARISON: 05/23/2022 FINDINGS: Right total ankle arthroplasty with intact tibial and talar components.No periprosthetic fracture, lucency or subsidence. Unchanged alignment.Punctate radiodensities project over the tibiotalar joint and medial malleolus.Screw ghost tracks in the distal fibula. Moderate soft tissue swelling. Thereare ghost screw tracks in the distal fibula. IMPRESSION Right total ankle arthroplasty without radiographic evidence of hardware complication. Nonspecific soft tissue swelling of the lower leg andankle. I have personally reviewed the image(s) and the resident's interpretationand agree with the findings, Janneth Bearden MD at 07/04/2022 4:54 PM Thank you for letting us participate in the care of this patient. If youare a health care provider and have any questions regarding this report,please contact the number below. For patients who have questions please contactthe health landcare facilitator that requested your imaging first. Electronically signed by: Janneth Bearden MD, [facility]([phone]), at 07/04/2022 4:54 PM Radha Omalley MD IMG DX ORDERABLES documented in this encounter Visit Diagnoses Diagnosis Post-traumatic osteoarthritis of right ankle Carpal tunnel syndrome on right Carpal tunnel syndrome Cubital tunnel syndrome on right Lesion of ulnar nerve documented in this encounter Care Teams Satellite Dish Repairer Relationship Specialty Start Date End Date Genie Abdullahi MD [address] [place] [address] PCP - General 02/23/11 documented as of this encounter
--- OUTSIDE RECORDS SUMMARY | 2024-07-17 08:24 | XMS_ITS | Encounter Summary ---
Author Organization [facility] [place] [address] Care Team Providers Care Rrt Name Role Phone Genie Abdullahi MD Primary Care Provider [phone] Reason for Visit * Auth/Cert Specialty Diagnoses / Procedures Referred By Gina t Referred To Contact Diagnoses Post-traumatic osteoarthritis of right ankle Right end stage ankle arthritis Procedures PRO ARTHROPLASTY ANKLE WITH IMPLANT PRO REMOVAL DEEP IMPLANT PRO GASTROCNEMIUS RECESSION TOTAL ANKLE ARTHROPLASTY (WRVU 14.42) REMOVAL OF IMPLANT, DEEP, ANKLE (WRVU 5.96) GASTROCNEMIUS RECESSION (WRVU 6.41) Radha Omalley MD [facility] DR [place] [address] [facility] Referral ID Status Reason Start Date Expiration Date Visits Re quested Visits Authorized [id number] 1 1 Encounter Details Date Type Department Care Team (Late st Contact Info) Description 05/10/2022 1:31 PM EDT Anesthesia Event [place] [address] Marino Huerta MD [facility] [place] [address] Ania Perry MD [facility] [place] [address] Anesthesia Record Procedure Summary Procedure Name Responsible Anesthesiologist Anesthesia Start Time Anesthesia Stop Time TOTAL ANKLE ARTHROPLASTY (WRVU 14.42) (Right: Ankle) Marino Huerta MD 05/10/22 1331 05/10/22 1712 Events Date Time Event Comment 05/10/2022 1251 1331 AN Verify 1331 Start 1332 An Start Data 1338 An Induction 1340 An Intubation 1341 Anesthesia Ready 1358 An Tourn Inflated 1558 An Tourn Deflated 1652 Handoff Intra-procedure anesthesia care was transferred after review of the patient's history, current anesthetic/surgical status and procedural plan, anticipated issues and expected post-operative course (including disposition.) Bobbi Vora, YANN 1708 Extubation/LMA Out 1708 an stop data 1710 Recovery or ICU Handoff Marsha ent care was transferred to the destination unit staff after review of the patient's medical history, current anesthetic/surgical status and plan, according to the Provider Handoff Checklist. 1712 Stop Meds Name Total Propofol 200 mg Ondansetron 4 mg Dexamethasone 4 mg Lidocaine 2% with BUpivacaine 0.5 % 30 m L Propofol INF 681.36 mg clindamycin (Cleocin) 600 mg in dextrose 5% 50 mL infusion 600 mg PHENYLephrine 240 mcg Lactated Ringers 1,100 mL * Agents Name O2 Air N2O Sevoflurane (et) * Blood No blood administrations on file. Lines, Drains, and Airways Type Details Placement Removal Incision 05/10/22; 1359; Right, anterior; ankle 05/10/22 1359 by Adeola Nelson, RN (RETIRED) Peripheral IV Line - Single Lumen 05/10/22; 1250; metacarpal vein (top of hand), left; [id number] catheter system; Anatomical Landmarks; 20 gauge; site benign; catheter/device intact, site care per policy/procedure, removed per policy/procedure; 05/10/22; 18505/10/22 1250 by Genesis Brown RN 05/10/22 185 by Izzy Wan RN Supraglottic Mask Ventilation: No t Attempted (0); LMA Type: iGel; LMA Size: 4; Inserted by: cb; Removal Date: 05/10/22; Removal Time: 1708 05/10/22 1340 by Fadi Matos CRNA 05/10/22 1708 by Bobbi Vora CRNA documented in this encounter Social History Tobacco Use Types Packs/Day Years [...] on file documented as of this encounter OR Notes * Anesthesia Postprocedure Evaluation - Marino Huerta MD - 05/18/2022 12:35 PM EDT Department of Anesthesiology Post-procedure Note Patient: Chandrika Casanova Procedure Summary Date: 05/10/22 Room / Location: [facility] [address] [place] [address] Anesthesia Start: 133 Anesthesia Stop: 1711 Procedures: TOTAL ANKLE ARTHROPLASTY (WRVU 14.42) (Right Ankle) REMOVAL OF IMPLANT, DEEP, ANKLE (WRVU 5.96) (Right Ankle) Diagnosis: Post-traumatic osteoarthritis of right ankle (Right end stage ankle arthritis) Surgeons: Radha Omalley MD Responsible Provider: Mraino Huerta MD Anesthesia Type: general ASA Status: 2 All Anesthesia Providers: Anesthesiologist: Marino Huerta MD MOVING WORKER: Fadi Matos CRNA; Bobbi Vora CRNA Vitals Value Taken Time BP 132/75 05/10/22 1830 Temp 36.2 ??C (97.2 ??F) 05/10/22 1710 Pulse 94 05/10/22 1730 Resp 16 05/10/22 1710 SpO2 95 % 05/10/22 1830 Pain Level 0 05/10/22 1900 Patient Location: PACU/[facility] Level of Consciousness: Awake and Alert Pain Management: Satisfactory Analgesia PONV: None Cardiovascular Status: At Baseline and Hemodynamically Stable Respiratory Status: At Baseline and Room Air Postoperative Fluid Status: Intravascular EUvolemia Possible Anesthetic Complications: NONE apparent at time of evaluation Final Primary Anesthesia Type: General (The anesthetic type performed was the same as planned.) Comments: Marino Huerta MD * Anesthesia Procedure Notes - Ania Perry MD - 05/10/2022 1:29 PM EDTAssociated Order(s): Anesthesia Block Anesthesia Block Date/Time: 05/10/2022 1:20 PM Performed by: Ania Perry MD Authorized by: Marino Huerta MD Start Time: 05/10/2022 1:20 PM End Time: 05/10/2022 1:28 PM Patient Location: Block Room Indication: Post-op Pain Control Post-op pain management at the request of surgeon. Block Type: Adductor canal block and sciatic sciatic/ popliteal nerve block Laterality: Right Position: Supine Prep: Chlorhexidine, patient draped and mask, cap, sterile gloves, hand hygeine Skin Anesthetic: Skin Anesthetic: Lidocaine 1% Block Technique: SonoPlex 21 10 cm Ultrasound Guided: YES and in-plane Ultrasound Image Saved Ultrasound guidance was used to identify the targeted neuronal structure. Ultrasound was also used to identify needle position and to identify tissue (bone, muscle, and blood vessels) to prevent inadvertent intraneural or intravascular needle placement and injection. The spread of local anesthetic was confirmed with live ultrasound imaging. Single-Shot: Single-shot Local Anesthetic Volume(s) Injected for Nerve Block: Lidocaine 2% with BUpivacaine 0.5 % - Perineural 30 mL - 05/10/2022 1:20:00 PM Nerve Sensory/MotorTest: Events: no complications Staff: Fellow:: Ania Perry MD Attending Physician:: Marino Huerta MD Notes: 22cc popliteal block, 8cc saphenous block * Anesthesia Preprocedure Evaluation - Marino Huerta MD - 05/09/2022 1:46 PM EDT Pre-Anesthesia Evaluation for: Chandrika Casanova a 56 y.o. female. Procedure(s): TOTAL ANKLE ARTHROPLASTY (WRVU 14.42) REMOVAL OF IMPLANT, DEEP, ANKLE (WRVU 5.96) GASTROCNEMIUS RECESSION (WRVU 6.41) Patient Active Problem List Diagnosis Date Noted ??? Lumbar herniated disc 08/19/2013 ??? Low back pain 04/09/2013 ??? Nevus 08/15/2011 ??? 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 Arthritis ??? Back pain 04/09/2013 ??? Diabetes mellitus ??? Migraine Past Surgical History: Procedure Laterality Date ??? APPENDECTOMY ??? JOINT REPLACEMENT ??? PRO LAMINOTOMY, LUMBAR DISK, 1 INTRSP 08/24/2013 LAMINOTOMY, DECOMPRESSION, FORAMINOTOMY, LUMBAR performed by Sal Phan MD at [facility] OR ??? PRO MICROSURG TECHNIQUES, REQ OPER MICROSCOPE 08/24/2013 MICROSCOPE USE performed by Sal Phan MD at [facility] OR ??? TONSILLECTOMY Social History Tobacco Use ??? Smoking status: Never Smoker ??? Smokeless tobacco: Never Used Substance Use Topics ??? Alcohol use: Not on file Comment: once a year wine coolers Social History Substance and Sexual Activity Drug Use No Allergies Allergen Reactions ??? Adhesive Tape Rash ??? Bactrim [Sulfamethoxazole-Trimethoprim] Rash ??? Keflex [Cephalexin] Rash Medications: MAR and/or home medications have been reviewed. Physical Exam: Preprocedure Vitals Current as of 05/09/22 1346 No BP, pulse, respiration, SpO2, or temperature recorded. Height: Weight: BMI: IBW: Airway Assessment: Mallampati: II Cardiovascular Assessment: Rhythm: regular Pulmonary Assessment: pulmonary exam normal Dental Assessment: - normal exam Misc Assessment: Patient is wearing No contact(s). IV access: Peripheral line Last Filed Perioperative Cognitive Screening None Anesthesia Plan: ASA 2 general, with a(n) intravenous induction Preliminary chart review: 56 y.o. female, BMI 28.17 (81.6 kg), drug allergies to bactrim, keflex, allergy to adhesives, presents for right ankle arthroplasty due to post-traumatic OA. PMHx: reviewed; notable for IDDM, migraines SMT OPERATOR meds: reviewed Labs: reviewed Prior anesthesia hx: 2014, laminectomy, [place], Mask Ventilation: Adjunct (2); ETT Type: Cuffed, Oral; ETT Size: 7 mm; Oral Airway: 90 mm (4) Plan: Regional nerve block (preop popliteal, saphenous block) GA Region - Other Informed Consent: Anesthetic plan and risks discussed with patient. Use of blood products discussed with patient who. Plan discussed with MOVING WORKER and attending. Anesthesia Screening documented in this encounter Miscellaneous Notes * Addendum Note - Marino Huerta MD - 07/25/2022 10:26 PM EST Addendum created 07/25/222225 by Marino Huerta MD Attestation recorded in Intraprocedure, Flowsheet accepted, Intraprocedure Attestations filed documented in this encounter Plan of Treatment Upcoming Encounters Date Type Department Care Team (Latest Contact Info) Description 08/25/2024 8:10 AM EST Hospital Encounter [place] [address] Marvin Ash MD [facility] [place]ED[place] [address] 08/25/2024 8:10 AM EST - 08/25/2024 9:30 AM EST Surgery [place] [address] Marvin Ash MD [facility] [place] [address] NEUROPLASTY &/OR TRANSPOSITION, ULNAR NERVE AT ELBOW (WRVU 7.26) 08/25/2024 9:40 AM EST Office Visit Dermatology at [facility] [address] [place] [address] Gary Combs MD [facility] DR [address] [place] [address] 09/10/2024 10:30 AM EST Office [place] [address] Tess Florez PA [facility] [place] [address] Scheduled Procedures Name Priority Associated Diagnoses Date/Ti [...] Procedure Name Priority Date/Time Associated Diagnosis Comments ANESTHESIA BLOCK Routine 05/10/2022 1:20 PM EDT documented in this encounter Results * Anesthesia Block (05/10/2022 1:20 PM EDT) Narrative Marino Huerta MD - 05/10/2022 1:20 PM EDT Ania Perry MD ? 05/10/2022 ??1:31 PM Anesthesia Block Date/Time: 05/10/2022 1:20 PM Performed by: Ania Perry MD Authorized by: Marino Huerta MD Start Time: ??05/10/2022 1:20 PM End Time: ??05/10/2022 1:28 PM Patient Location: ??Block Room Indication: ??Post-op Pain Control Post-op pain management at the request of surgeon. ?? Block Type: ??Adductor canal block and sciatic sciatic/ popliteal nerve block Laterality: ??Right Position: ??Supine Prep: ??Chlorhexidine, patient draped and mask, cap, sterile gloves, hand hygeine Skin Anesthetic: ??Skin Anesthetic: ??Lidocaine 1% Block Technique: ?? SonoPlex ?? 21 ?? 10 cm ??Ultrasound Guided: ??YES and in-plane ??Ultrasound Image Saved ?Ultrasound guidance was used to identify the targeted neuronal structure. Ultrasound was also used to identify needle position and to identify tissue (bone, muscle, and blood vessels) to prevent inadvertent intraneural or intravascular needle placement and injection. The spread of local anesthetic was confirmed with live ultrasound imaging. ?Single-Shot: ??Single-shot Local Anesthetic Volume(s) Injected for Nerve Block: ?? Lidocaine 2% with BUpivacaine 0.5 % - Perineural 30 mL - 05/10/2022 1:20:00 PM Nerve Sensory/MotorTest: ??Events: no complications ?? Staff: ??Fellow:: ??Aina Perry MD ??Attending Physician:: ??Marino Huerta MD Notes: ?? 22cc popliteal block, 8cc saphenous block Marino Huerta MD IT SECURITY ENGINEER [facility] documented in this encounter Visit Diagnoses Not on filedocumented in this encounter Administered Medications Inactive Administered Medications - up to 3 most recent administrations Medication Order MAR Action Action Date Dose Rate Site clindamycin (Cleocin) 600 mg in dextrose 5% 50 mL infusion 600 mg, Intravenous, ONCE, 1 dose, On Cassandra 05/10/22 at 1345, Administer over 20 Minutes, Day of Surgery (Day of Procedure), Indication for (Active or Suspected): Prophylaxis Given 05/10/2022 1:41 PM EDT 600 mg dexAMETHasone (Decadron) injection Intravenous, PRN, Starting on Cassandra 05/10/22 at 1349, Until Cassandra 05/10/22 at 1715, Anesthesia Intra-op, Routine Given 05/10/2022 1:49 PM EDT 4 mg lactated ringers infusion Intravenous, CONTINUOUS PRN, Starting on Cassandra 05/10/22 at 1331, Until Cassandra 05/10/22 at 1715, Anesthesia Intra-op New Bag 05/10/2022 4:12 PM EDT New Bag 05/10/2022 1:31 PM EDT lidocaine-BUpivacaine (pf) (2% - 0.5%) injection (Anesthesia) Perineural, Starting on Cassandra 05/10/22 at 1320, Until Cassandra 05/10/22 at 1320, Anesthesia Intra-op, Routine Given 05/10/2022 1:20 PM EDT 30 mLs ondansetron (pf) (Zofran) (2 mg/mL) injection Intravenous, PRN, Starting on Cassandra 05/10/22 at 1349, Until Cassandra 05/10/22 at 1715, Anesthesia Intra-op, Routine Given 05/10/2022 4:19 PM EDT 4 mg PHENYLephrine in NS (PF) (MARY-SYNEPHRINE) 0.8 mg/10 mL (80 mcg/mL) multi-dose injection Syrg Intravenous, PRN, Starting on Cassandra 05/10/22 at 1354, Until Cassandra 05/10/22 at 1715, Anesthesia Intra-op, Routine Given 05/10/2022 3:58 PM EDT 80 mcg Given 05/10/2022 1:54 PM EDT 80 mcg Given 05/10/2022 1:45 PM EDT 80 mcg propofoL (Diprivan) (10 mg/mL) infusion Intravenous, CONTINUOUS PRN, Starting on Cassandra 05/10/22 at 1342, Until Cassandra 05/10/22 at 1715, Anesthesia Intra-op, Routine New Bag 05/10/2022 1:42 PM EDT 50 mcg/kg/min 24.48 mL/hr propofoL (Diprivan) 10 mg/mL bolus injection (Anesthesia) Intravenous, PRN, Starting on Cassandra 05/10/22 at 1338, Until Cassandra 05/10/22 at 1715, Anesthesia Intra-op Given 05/10/2022 1:38 PM EDT 200 mg documented in this encounter Care Teams Rrt Relationship Specialty Start Date End Date Genie Abdullahi MD [facility] [address] [place] [address] PCP - General 02/23/11 documented as of this encounter
--- OUTSIDE RECORDS SUMMARY | 2024-07-17 08:24 | XMS_ITS | Encounter Summary ---
[place] [address] Care Team Providers Care Can Feeder Name Role Phone Genie Abdullahi MD Primary Care Provider [phone] Reason for Visit * Reason Onset Date Comments Results 09/28/2021 Encounter Details Date Type Department Care Team (Late st Contact Info) Description 09/28/2021 Telephone [place] [phone] Jocelyne Banks RMA Results Social History Tobacco Use Types Packs/Day Years [...] encounter Miscellaneous Notes * Telephone Encounter - Jocelyne Banks RMA - 09/28/2021 2:57 PM ESTSummary: Results Triage Note Subjective: Results MRI SPine 09/21/2021 Gandhi questions/Assessment: Chandrika called in for the results of her MRI of the spine. She can be reached at [phone]. documented in this encounter Plan of Treatment Upcoming Encounters Date Type Department Care Team (Latest Contact Info) Description 08/25/2024 8:10 AM EST Hospital Encounter [place] [phone] Marvin Ash MD [facility] [place] [address] 08/25/2024 8:10 AM EST - 08/25/2024 9:30 AM EST Surgery [place] [phone] Marvin Ash MD [facility] [place] [address] NEUROPLASTY &/OR TRANSPOSITION, ULNAR NERVE AT ELBOW (WRVU 7.26) 08/25/2024 9:40 AM EST Office Visit Dermatology at [address] [place] [address] Gary Combs MD [facility] DR [address] [place] [address] 09/10/2024 10:30 AM EST Office [place] [phone] Tess Florez PA [facility] [place] [address] Scheduled Procedures Name Priority Associated Diagnoses Date/Ti ga NEUROPLASTY &/OR TRANSPOSITION, ULNAR NERVE AT ELBOW (WRVU 7.26) Carpal tunnel syndrome on right Cubital tunnel syndrome on right 08/25/2024 8:10 AM EST ENDOSCOPY WRIST W/ RELEASE TRANSVERSE CARPAL LIGAMENT (WRVU 6.39) Carpal tunnel syndrome on right Cubital tunnel syndrome on right 08/25/2024 8:10 AM EST documented as of this encounter Visit Diagnoses Not on filedocumented in this encounter Care Teams Can Feeder Relationship Specialty Start Date End Date Genie Abdullahi MD [facility] [address] [place] [address] PCP - General 02/23/11 documented as of this encounter
--- OUTSIDE RECORDS SUMMARY | 2024-07-17 08:24 | XMS_ITS | Encounter Summary ---
[place] [address] Care Team Providers Care Battery Repairer Name Role Phone Genie Abdullahi MD Primary Care Provider [phone] Reason for Referral * Diagnostic Test (Routine) - Closed Specialty Diagnoses / Procedures Referred By Contac t Referred To Contact Radiology Diagnoses Tendon tear Hip pain Procedures MRI Hip wo Contrast Right (Generic) Amilcar Roman MD [address] [place] [address] [place] [address] Referral ID Status Reason Start Date Expiration Date V isits Requested Visits Authorized [id number] Closed Specialty Service Requested 07/20/2021 10/25/2021 1 1 Reason for Visit * Diagnostic Test (Routine) - Closed Specialty Diagnoses / Procedures Referred By Contac t Referred To Contact Radiology Diagnoses Tendon tear Hip pain Procedures MRI Hip wo Contrast Right (Generic) Amilcar Roman MD [address] [place] [address] [place] [address] Referral ID Status Reason Start Date Expiration Date V isits Requested Visits Authorized [id number] Closed Specialty Service Requested 07/20/2021 10/25/2021 1 1 Encounter Details Date Type Department Care Team (Latest Contact Info) Description 08/03/2021 3:46 PM EST - 08/03/2021 11:59 PM EST Hospital Encounter MRI at [facility] [place] [address] Amilcar Roman MD [address] [place] [address] Tendon tear; Hip pain Discharge Disposition: Home Social History Tobacco Use [...] Date OneTouch Verio test strips Strip 07/21/2021 indomethacin (Indocin) 25 mg Capsule TAKE 1 CAPSULE BY MOUTH EVERY DAY NEEDED FOR MIGRAINE HEADACHE. DO NOT TAKE WITH CELEBREX 07/17/2021 OneTouch Delica Plus Lancet 30 gauge Misc 06/23/2021 celecoxib (CeleBREX) 200 mg Capsule Take 400 mg by mouth daily. 07/17/2021 lisinopril (PRINIVIL;ZESTRIL) 5 mg tablet Take 5 mg by mouth daily. omeprazole (PRILOSEC) 20 mg capsule Take 20 mg by mouth daily. CYANOCOBALAMIN, VITAMIN B-12, ORAL Take 2,000 mcg by mouth daily. calcium-vitamin D3 600 mg-5 mcg (200 unit) Tablet Take by mouth 2 times daily. ibuprofen (ADVIL;MOTRIN) 400 mg tablet Take 400 mg by mouth 2 times daily. 09/06/2021 pravastatin (PRAVACHOL) 10 mg tablet Take 10 mg by mouth daily. 09/06/2021 naratriptan (AMERGE) 2.5 mg tablet Take 2.5 mg by mouth as needed. Take one (1) tablet at onset of headache; if returns or does not resolve, may repeat after 4 hours; do not exceed five (5) mg in 24 hours. 09/06/2021 insulin glargine (Lantus) 100 unit/mL (3 mL) pen Inject 22 Units subcutaneously nightly. 01/17/20 22 insulin aspart U-100 (NovoLOG) Insulin Pen Inject 4 Units subcutaneously 3 times daily (with meals). Based on patient 01/16/2022 celecoxib (CELEBREX) 100 mg capsule Take 200 mg by mouth daily. 09/06/2021 aspirin 81 mg EC tablet Take 81 mg by mouth daily. 05/10/2022 ibuprofen (ADVIL;MOTRIN) 200 mg tablet Take 200 mg by mouth every 6 hours as needed. 022 documented as of this encounter Plan of Treatment Upcoming Encounters Date Type Department Care Team (Latest Contact Info) Description 08/25/2024 8:10 AM EST Hospital Encounter [place] [phone] [facility] [place] [address] 08/25/2024 8:10 AM EST - 08/25/2024 9:30 AM EST Surgery [place] [phone] [facility] [place] [address] NEUROPLASTY &/OR TRANSPOSITION, ULNAR NERVE AT ELBOW (WRVU 7.26) 08/25/2024 9:40 AM EST Office Visit Dermatology at [address] [phone] Gary Combs MD [facility] DR [facility] [place] [address] 09/10/2024 10:30 AM EST Office [place] [phone] [facility] [place] [address] Scheduled Procedures Name Priority Associated Diagnoses Date/Ti [...] Procedure Name Priority Date/Time Associated Diagnosis Comments MRI HIP RIGHT WO CONTRAST Routine 08/03/2021 5:30 PM EST Tendon tear Hip pain documented in this encounter Results * MRI Hip wo Contrast Right (Generic) (08/03/2021 5:30 PM EST) Anatomical Region Laterality Modality Hip Right Magnetic Resonan ce Impressions 08/07/2021 8:27 AM EST 1. ??Status post right total hip arthroplasty. Lobulated STIR hyperintense signal at the bone metal interface of the medial acetabular cup is suspicious for osteolysis. 2. ??Lobulated near fluid intensity structure along the anterior margin of the neck of the right femoral component could represent loculated joint effusion, but pseudotumor formation or adverse local tissue reaction can also have this appearance. 3. ??Fatty atrophy of the right gluteal muscles and the right adductor longus muscle, without intramuscular STIR signal to suggest muscle strain or injury. 4. ??Susceptibility artifact at the myotendinous junction of the right iliopsoas, just anterior to the hip prosthesis could represent metallic debris within the right iliopsoas bursa. Thank you for letting us participate in the care of this patient. ??If you are a health care provider and have any questions regarding this report, please contact the number below. ??For patients who have questions please contact the health rn progressive care unit that requested your imaging first. ? Electronically signed by: Janneth Bearden MD, [facility] ([phone]), at 08/07/2021 8:27 AM Narrative 08/07/2021 8:27 AM EST EXAMINATION: MRI HIP WO CONTRAST RIGHT (GENERIC) CLINICAL HISTORY: MARS Protocol, Abductor tendon tear (as entered by ordering provider in the order requisition) TECHNIQUE: MR the right hip was performed using a hip arthroplasty protocol. Large field view sequences through the pelvis include axial T1, axial T2, coronal T1, coronal STIR [place], and small field view sequences through the right hip include sagittal STIR, coronal STIR, and axial STIR sequences. COMPARISON: None FINDINGS: Right hip: There is a right total hip arthroplasty. Lobulated heterogeneously STIR hyperintense signal along the medial bone metal interface of the acetabular cup with hypointense margins (series 5, image 33 and series 9, image 13), suspicious for osteolysis. There is a lobulated joint effusion along the anterior margin of the neck of the femoral component (series 4, image 33 and series 5, image 32). In the visualized portions of the bony anatomy, there is no periprosthetic fracture. Left hip: No left hip joint effusion. Large cadcj-no-jdoj sequences limit evaluation of the cartilage in labrum. Other bones and joints: There is disc desiccation and disc height loss at the lumbosacral junction. There is no appreciable fracture. There is facet arthropathy of the lumbosacral junction. Tendons and muscles: There is fatty atrophy of the right gluteal muscles. There is fatty atrophy of the right adductor longus. There is no abnormal STIR signal within the adductor muscles to suggest acute muscle strain or injury. The origin of the bilateral hamstrings tendons are intact. No high-grade disruption or retraction of the insertional gluteal tendons, though there is extensive susceptibility artifact and distortion of the right gluteal tendons possibly representing postsurgical change. No disruption of the insertional iliopsoas tendons bilaterally, but there is a focus of susceptibility artifact at the myotendinous junction of the right iliopsoas, anterior to the hip prosthesis (series 4, image 32). The origin of sartorius and rectus femoris are intact bilaterally. Other soft tissues: Normal signal and caliber the bilateral sciatic nerves. Limited evaluation of intrapelvic organs: There is a pessary in place. Procedure Note Janneth Bearden MD - 08/07/2021 EXAMINATION: MRI HIP WO CONTRAST RIGHT (GENERIC) CLINICAL HISTORY: MARS Protocol, Abductor tendon tear (as entered byordering provider in the order requisition) TECHNIQUE: MR the right hip was performed using a hip arthroplasty protocol. Largefield view sequences through the pelvis include axial T1, axial T2, coronalT1, coronal STIR [place], and small field view sequences through the righthip include sagittal STIR, coronal STIR, and axial STIR sequences. COMPARISON: None FINDINGS: Right hip: There is a right total hip arthroplasty. Lobulatedheterogeneously STIR hyperintense signal along the medial bone metal interface of theacetabular cup with hypointense margins (series 5, image 33 and series 9, image13), suspicious for osteolysis. There is a lobulated joint effusion along the anterior margin of the neck of the femoral component (series 4, image 33and series 5, image 32). In the visualized portions of the bony anatomy, thereis no periprosthetic fracture. Left hip: No left hip joint effusion. Large jamqk-sq-mxes sequenceslimit evaluation of the cartilage in labrum. Other bones and joints: There is disc desiccation and disc height loss atthe lumbosacral junction. There is no appreciable fracture. There is facet arthropathy of the lumbosacral junction. Tendons and muscles: There is fatty atrophy of the right gluteal muscles.There is fatty atrophy of the right adductor longus. There is no abnormal STIRsignal within the adductor muscles to suggest acute muscle strain or injury. The origin of the bilateral hamstrings tendons are intact. No high-grade disruption or retraction of the insertional gluteal tendons, though thereis extensive susceptibility artifact and distortion of the right glutealtendons possibly representing postsurgical change. No disruption of theinsertional iliopsoas tendons bilaterally, but there is a focus of susceptibilityartifact at the myotendinous junction of the right iliopsoas, anterior to the hip prosthesis (series 4, image 32). The origin of sartorius and rectusfemoris are intact bilaterally. Other soft tissues: Normal signal and caliber the bilateral sciaticnerves. Limited evaluation of intrapelvic organs: There is a pessary in place. IMPRESSION 1. Status post right total hip arthroplasty. Lobulated STIR hyperintensesignal at the bone metal interface of the medial acetabular cup is suspiciousfor osteolysis. 2. Lobulated near fluid intensity structure along the anterior margin ofthe neck of the right femoral component could represent loculated jointeffusion, but pseudotumor formation or adverse local tissue reaction can also havethis appearance. 3. Fatty atrophy of the right gluteal muscles and the right adductorlongus muscle, without intramuscular STIR signal to suggest muscle strain orinjury. 4. Susceptibility artifact at the myotendinous junction of the rightiliopsoas, just anterior to the hip prosthesis could represent metallic debris withinthe right iliopsoas bursa. Thank you for letting us participate in the care of this patient. If youare a health care provider and have any questions regarding this report,please contact the number below. For patients who have questions please contactthe health rn progressive care unit that requested your imaging first. Electronically signed by: Janneth Bearden MD, [facility]([phone]), at 08/07/2021 8:27 AM Amilcar Roman MD IMG MRI ORDERABLES documented in this encounter Visit Diagnoses Diagnosis Tendon tear Unspecified site of sprain and strain Hip pain Pain in joint, pelvic region and thigh Carpal tunnel syndrome on right Carpal tunnel syndrome Cubital tunnel syndrome on right Lesion of ulnar nerve documented in this encounter Care Teams Battery Repairer Relationship Specialty Start Date End Date Genie Abdullahi MD [facility] [address] [place] [address] PCP - General 02/23/11 documented as of this encounter
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
--- OUTSIDE RECORDS SUMMARY | 2024-07-17 08:24 | XMS_ITS | Encounter Summary ---
[place] [address] Care Team Providers Care Student Loan Counselor Name Role Phone Genie Abdullahi MD Primary Care Provider [phone] Encounter Details Date Type Department Care Team (Late st Contact Info) Description 05/18/2022 [place] [phone] Magali Farrar MD [facility] [place] [address] Social History Tobacco Use Types Packs/Day Years [...] as of this encounter Progress Notes * Magali Farrar MD - 05/18/2022 2:57 PM EDT Nerve block worn off No n/t, or weakness Occasionally tingling in toes and resolved with moving No incision issues JASIEL Farrar MD Regional anesthesia documented in this encounter Plan of Treatment Upcoming Encounters Date Type Department Care Team (Latest Contact Info) Description 08/25/2024 8:10 AM EST Hospital Encounter [place] [address] Marvin Ash MD [facility] [place] [address] 08/25/2024 8:10 AM EST - 08/25/2024 9:30 AM EST Surgery [place]patient [place] [phone] Marvin Ash MD [facility] [place] [address] NEUROPLASTY &/OR TRANSPOSITION, ULNAR NERVE AT ELBOW (WRVU 7.26) 08/25/2024 9:40 AM EST Office Visit Dermatology at [address] [address] Gary Combs MD [facility] [place] [address] 09/10/2024 10:30 AM EST Office Visit [place] [phone] Tess Florez PA [facility] [place] [address] Scheduled Procedures Name Priority Associated Diagnoses Date/Ti ne NEUROPLASTY &/OR TRANSPOSITION, ULNAR NERVE AT ELBOW (WRVU 7.26) Carpal tunnel syndrome on right Cubital tunnel syndrome on right 08/25/2024 8:10 AM EST ENDOSCOPY WRIST W/ RELEASE TRANSVERSE CARPAL LIGAMENT (WRVU 6.39) Carpal tunnel syndrome on right Cubital tunnel syndrome on right 08/25/2024 8:10 AM EST documented as of this encounter Visit Diagnoses Not on filedocumented in this encounter Care Teams Student Loan Counselor Relationship Specialty Start Date End Date Genie Abdullahi MD [facility] [address] [address] PCP - General 02/23/11 documented as of this encounter
--- OUTSIDE RECORDS SUMMARY | 2024-07-17 08:24 | XMS_ITS | Encounter Summary ---
[place] [address] Care Team Providers Care Classified Copy Control Clerk Name Role Phone Genie Abdullahi MD Primary Care Provider [phone] Reason for Referral * Diagnostic Test (Routine) - Closed Specialty Diagnoses / Procedures Referred By Contac t Referred To Contact Radiology Diagnoses Chronic low back pain, unspecified back pain laterality, unspecified whether sciatica present Procedures MRI Lumbar Spine wo Contrast (Generic) Ephraim Agarwal MD [facility] [place] [address] [place] [address] Referral ID Status Reason Start Date Expiration Date V isits Requested Visits Authorized [id number] Closed Specialty Service Requested 09/10/2021 12/09/2021 1 1 Reason for Visit * Diagnostic Test (Routine) - Closed Specialty Diagnoses / Procedures Referred By Contac t Referred To Contact Radiology Diagnoses Chronic low back pain, unspecified back pain laterality, unspecified whether sciatica present Procedures MRI Lumbar Spine wo Contrast (Generic) Ephraim Agarwal MD [facility] [place] [address] [place] [address] Referral ID Status Reason Start Date Expiration Date V isits Requested Visits Authorized [id number] Closed Specialty Service Requested 09/10/2021 12/09/2021 1 1 Encounter Details Date Type Department Care Team (Late st Contact Info) Description 09/21/2021 7:35 PM EST - 09/21/2021 11:59 PM EST Hospital Encounter MRI at [facility] [place] [address] Odell Merchant MD [facility] [place] [address] Chronic low back pain, unspecified back pain laterality, unspecified whether sciatica present Discharge Disposition: Home Social History Tobacco Use [...] AM EST Hospital Encounter [place]patient [place] [phone] Marvin Ash MD [facility] [place] [address] 08/25/2024 8:10 AM EST - 08/25/2024 9:30 AM EST Surgery [place] [phone] Marvin Ash MD [facility] [place] [address] NEUROPLASTY &/OR TRANSPOSITION, ULNAR NERVE AT ELBOW (WRVU 7.26) 08/25/2024 9:40 AM EST Office Visit Dermatology at [address] [address] Gary Combs MD [facility] [address] [place] [address] 09/10/2024 10:30 AM EST Office Visit [place] [phone] Tess Florez PA [facility] [place] [address] Scheduled Procedures Name Priority Associated Diagnoses Date/Ti [...] Name Priority Date/Time Associated Diagnosis Comments MRI LUMBAR SPINE WITHOUT CONTRAST Routine 09/21/2021 8:31 PM EST Chronic low back pain, unspecified back pain laterality, unspecified whether sciatica present documented in this encounter Results * MRI Lumbar Spine wo Contrast (Generic) (09/21/2021 8:31 PM EST) Anatomical Region Laterality Modality L-spine Magnetic Resonan ce Impressions 09/22/2021 10:08 AM EST Mild lumbar spondylosis. Comment: The following findings are so common in people without low back pain that while we report their presence, they must be interpreted with caution and in context of the clinical situation (Reference- Sorinvik Et Al, Spine 2001). Findings: (Prevalence in patients without low back pain), disc degeneration (decreased T2 signal, height loss, bulge) (91%), disc T2-signal loss (83%), disc height loss (56%), disc bulge (64%), disc protrusion (32%), annular fissure (38%). Thank you for letting us participate in the care of this patient. ??If you are a health care provider and have any questions regarding this report, please contact the number below. ??For patients who have questions please contact the health child care provider that requested your imaging first. ? Electronically signed by: Arslan Bajwa MD, [facility] ([phone]), at 09/22/2021 10:08 AM Narrative 09/22/2021 10:08 AM EST EXAMINATION: MRI LUMBAR SPINE WO CONTRAST (GENERIC) CLINICAL HISTORY: Low back pain, no red flags, no prior management Right MAUREEN mom revised w/chronic back pain and R hip / bilateral leg pain/paresthesias (vague distribution). Eval for possible spinal pathology. Thank you! TECHNIQUE: MRI of the lumbar spine performed without intravenous contrast administration. COMPARISON: None FINDINGS: Leftward convex curvature of lumbar spine. Trace anterolisthesis of L4 with respect L5 on a degenerative basis. Endplate marrow fatty change and edema at L5-S1 related to disc degeneration. The conus is normal in signal and terminates at L1. Abdominal aorta is normal in caliber. T12-L1: Normal. L1-2: Normal. L2-3: Disc bulge without significant stenosis. L3-4: Disc bulge mildly narrowing the foramina. L4-5: Disc bulge and facet arthropathy mildly narrowing the foramina. L5-S1: Disc bulge and endplate proliferation more pronounced in the left contributing to mild left foraminal and subarticular recess stenosis. Procedure Note Arslan Bajwa MD - 09/22/2021 EXAMINATION: MRI LUMBAR SPINE WO CONTRAST (GENERIC) CLINICAL HISTORY: Low back pain, no red flags, no prior management Right MAUREEN mom revised w/chronic back pain and R hip / bilateral leg pain/paresthesias (vague distribution). Eval for possible spinalpathology. Thank you! TECHNIQUE: MRI of the lumbar spine performed without intravenous contrastadministration. COMPARISON: None FINDINGS: Leftward convex curvature of lumbar spine. Trace anterolisthesis of L4with respect L5 on a degenerative basis. Endplate marrow fatty change and edemaat L5-S1 related to disc degeneration. The conus is normal in signal andterminates at L1. Abdominal aorta is normal in caliber. T12-L1: Normal. L1-2: Normal. L2-3: Disc bulge without significant stenosis. L3-4: Disc bulge mildly narrowing the foramina. L4-5: Disc bulge and facet arthropathy mildly narrowing the foramina. L5-S1: Disc bulge and endplate proliferation more pronounced in the left contributing to mild left foraminal and subarticular recess stenosis. IMPRESSION Mild lumbar spondylosis. Comment: The following findings are so common in people without low backpain that while we report their presence, they must be interpreted with cautionand in context of the clinical situation (Reference- Jarvik Et Al, Puthy5578). Findings: (Prevalence in patients without low back pain), discdegeneration (decreased T2 signal, height loss, bulge) (91%), disc T2-signal loss(83%), disc height loss (56%), disc bulge (64%), disc protrusion (32%), annularfissure (38%). Thank you for letting us participate in the care of this patient. If youare a health care provider and have any questions regarding this report,please contact the number below. For patients who have questions please contactthe health child care provider that requested your imaging first. Electronically signed by: Arslan Bajwa MD, [facility]([phone]), at 09/22/2021 10:08 AM Odell Merchant MD IMG MRI ORDERABLES documented in this encounter Visit Diagnoses Diagnosis Chronic low back pain, unspecified back pain laterality, unspecified whether sciatica present Carpal tunnel syndrome on right Carpal tunnel syndrome Cubital tunnel syndrome on right Lesion of ulnar nerve documented in this encounter Care Teams Classified Copy Control Clerk Relationship Specialty Start Date End Date Genie Abdullahi MD [address] [place] [address] PCP - General 02/23/11 documented as of this encounter
--- OUTSIDE RECORDS SUMMARY | 2024-07-17 08:24 | XMS_ITS | Encounter Summary ---
Author Organization [facility] [place] [address] Care Team Providers Care Powder Press Operator Name Role Phone Genie Abdullahi MD Primary Care Provider [phone] Reason for Visit * Reason Comments Pre-op Exam Encounter Details Date Type Department Care Team (Latest Contact Info) Description 05/02/2022 1:00 PM EDT Office Visit [place] [address] Radha Omalley MD [facility] [place] [address] Post-traumatic osteoarthritis of right ankle Social History [...] Time Taken Comments Blood Pressure 127/73 05/02/2022 12:58 PM EDT Pulse 89 05/02/2022 12:58 PM EDT Temperature - - Respiratory Rate - - Oxygen Saturation - - Inhaled Oxygen Concentration - - Weight 81.6 kg (179 lb 14.3 oz) 022 12:58 PM EDT Height 170.2 cm (5' 7.01) 05/02/2022 1 2:58 PM EDT Body Mass Index 28.17 05/02/2022 12:58 PM EDT documented in this encounter Progress Notes * Radha Omalley MD - 05/02/2022 1:00 PM EDT PATIENT NAME: Chandrika Casanvoa AGE: 56 y.o. MR#: [id number] DATE OF VISIT: 05/02/2022 STAFF: Radha Omalley MD FOLLOW UP FOR: Right ankle arthritis HISTORY OF PRESENT ILLNESS: Ms. Casanova is a 56 y.o. female who comes into clinic today for her preoperative history and physical for her right total ankle arthroplasty with hardware removal to be conducted next on 05/10/2022. She has been doing a lot of preparation and is ready to go. She plans on bringing her crutches to the surgery center. She does want all of her hardware removed including the fibular plate. Medications and Allergies were reviewed in eD-H [...] LUMBAR performed by Sal Phan MD at [facility] MAIN OR ??? PRO MICROSURG TECHNIQUES, REQ OPER MICROSCOPE 08/24/2013 MICROSCOPE USE performed by Sal Phan MD at [facility] MAIN OR ??? TONSILLECTOMY FAMILY HX: [...] Treatments, PreExisting Condition, Health Habits, About You 04/26/2022 PROMIS-10 General Health Good PROMIS-10 Quality of Life Good PROMIS-10 Physical Health Good PROMIS-10 Mental Health Very Good PROMIS-10 Social Activity Good PROMIS-10 Everyday Activities Completely PROMIS-10 Pain 5 PROMIS-10 Fatigue Mild PROMIS-10 Social Roles Good PROMIS-10 Anxious or Depressed Rarely PROMIS PHYSICAL SCORE (range 16-68) 47.7 PROMIS MENTAL SCORE (range 21-68) 48.3 Treatments Tried Regular exercise, Brace, Medicines applied on the skin (topical), Over the counteranti-inflammatory drugs (e.g Advil, Aspirin, Aleve), Injection of steroids or cortisone Prior Surgery Broken ankle in 1984. Pins/plate installed to hold ankle together in 1984. HOOS JR Scores - MAUREEN Grade - [...] Household Income - # People Supported - [place], , - Race - Health Literacy Extremely Currently working - Current job situation - [...] Musculoskeletal: Examination of the right ankle reveals dorsiflexion to neutral only. She has plantarflexion to 25 degrees. There is tenderness to palpation about the tibiotalar joint. Her hardware both medially and laterally is quite palpable and tender but with no associated soft tissue swelling.Sensation is intact to light touch throughout this foot. The foot is warm and well-perfused. DIAGNOSTIC STUDIES: No new films were taken today but the patient's CT scan has previously been reviewed. ASSESSMENT: Right posttraumatic ankle arthritis with symptomatic retained hardware PLAN: At this time, we will proceed with a total ankle arthroplasty and hardware removal. I discussed with her that she may or may not need a tendo Achilles lengthening versus Farhad procedure. Specific risks discussed with her include the risk of infection, bleeding, damage to adjacent structures, implant failure, periprosthetic fracture, blood clots, stiffness and need for further procedures. The patient signed an informed consent.. The patient expressed agreement with and understanding of this plan of care. The patient understands to contact us if they have any other questions or concerns. The above documentation was completed using Triage voice recognition software. Radha Omalley MD Department of Orthopaedics [facility] Pager: [phone] * Matthew Rodriguez - 05/02/2022 1:00 PM EDT PREOPERATIVE APPOINTMENT Chief complaint: Preoperative appointment for proposed right Total ankle arthroplasty History of present illness: Chandrika Casanova is a 56 y.o. year-old female here in regards to the above. The patient has sought preoperative clearance with Dr. Mcleod. The patient has had the following previous problems with surgery: No Patient has two-wheeled walker, and crutches to use after surgery. Post op x-rays ordered: yes, right ankle Assessment: 56 y.o. year-old female here for a preoperative appointment for proposed right total ankle athroplasty Plan: We discussed the recovery from surgery, and the period of non weight bearing for an anticipated 2 weeks that would be required, as well as the 12 months until full recovery can be expected. Thepatient signed operative consent today. We also reviewed the opioid consent form. I reviewed the risks of opioids and our goal of using theleast amount of opioid possible for the shortest period of time to control the patient's postoperative pain. They signed the opioid consent form. No flowsheet data found. Postoperative anticoagulation: Aspirin 81 mg BID for 30 days Identified barriers to surgery: None This plan was discussed with the patient and they are in agreement. All of the patient's questions were answered. documented in this encounter Plan of Treatment Upcoming Encounters Date Type Department Care Team (Latest Contact Info) Description 08/25/2024 8:10 AM EST Hospital Encounter [place]patient [place] [phone] Marvin Ash MD [facility] [place] [address] 08/25/2024 8:10 AM EST - 08/25/2024 9:30 AM EST Surgery [place] [phone] Marvin Ash MD [facility] [place] [address] NEUROPLASTY &/OR TRANSPOSITION, ULNAR NERVE AT ELBOW (WRVU 7.26) 08/25/2024 9:40 AM EST Office Visit Dermatology at [facility] [address] [place] [address] Gary Combs MD [facility] DR [place] [address] 09/10/2024 10:30 AM EST Office Visit [place] [phone] Tess Florez PA [facility] [place] [address] Scheduled Procedures Name Priority Associated Diagnoses Date/Ti [...] nerve documented in this encounter Care Teams Powder Press Operator Relationship Specialty Start Date End Date Genie Abdullahi MD [address] [place] [address] PCP - General 02/23/11 documented as of this encounter
--- OUTSIDE RECORDS SUMMARY | 2024-07-17 08:24 | XMS_ITS | Encounter Summary ---
Author Organization [facility] [place] [address] Care Team Providers Care Lock Tender Chief Operator Name Role Phone Genie Abdullahi MD Primary Care Provider [phone] Reason for Referral * Physical Therapy (Routine) - Closed Specialty Diagnoses / Procedures Referred By Gina terrell Referred To Contact Physical Therapy Diagnoses Post-traumatic osteoarthritis of right ankle Genie Sanchez PA [facility] [place] [address] Referral ID Status Reason Start Date Expiration Date V isits Requested Visits Authorized [id number] Closed Evaluate and Treat 05/23/2022 11/19/2022 20 20 Reason for Visit * Reason Comments Post Op Right total ankle ar throplasty 05/10/22 Encounter Details Date Type Department Care Team (Latest Contact Info) Description 05/23/2022 10:45 AM EDT Office [place] [address] Radha Omalley MD [facility] [place] [address] Post-traumatic osteoarthritis of right ankle Social History [...] Sign Reading Time Taken Comments Blood Pressure 151/78 05/23/2022 10:31 AM EDT Pulse 89 05/23/2022 10:31 AM EDT Temperature - - Respiratory Rate - - Oxygen Saturation - - Inhaled Oxygen Concentration - - Weight 81.6 kg (180 lb) 05/23/2022 10:31 AM EDT Height 170.2 cm (5' 7) 05/23/2022 10:31 AM EDT Body Mass Index 28.19 05/23/2022 10:31 AM EDT documented in this encounter Progress Notes * Radha Omalley MD - 05/23/2022 10:45 AM EDT PATIENT NAME: Chandrika Casanova AGE: 56 y.o. MR#: [id number] DATE OF VISIT: 05/23/2022 STAFF: Radha Omalley MD FOLLOW UP FOR: Principal Procedures on 05/08/2022 1. Right total ankle arthroplasty with Inbone II system 2. Right fibular hardware removal 3. Right tibial hardware removal HISTORY OF PRESENT ILLNESS: Ms. Casanova is a 56 y.o. female who comes into clinic today for follow up of the above procedure. She reports that she is doing fairly well. I gave her hardware back today.She denies any fevers or chills and reports that her pain has been well managed. Medications and Allergies were reviewed in eD-H [...] 14.42) performed by Radha Omalley MD at [facility] OSC ??? PRO LAMINOTOMY, LUMBAR DISK, 1 INTRSP 08/24/2013 LAMINOTOMY, DECOMPRESSION, FORAMINOTOMY, LUMBAR performed by Sal Phan MD at [facility] MAIN OR ??? PRO MICROSURG TECHNIQUES, REQ OPER MICROSCOPE 08/24/2013 MICROSCOPE USE performed by Sal Phan MD at [facility] MAIN OR ??? PRO REMOVAL DEEP IMPLANT Right 05/10/2022 REMOVAL OF IMPLANT, DEEP, ANKLE (WRVU 5.96) performed by Radha Omalley MD at [facility] ??? TONSILLECTOMY FAMILY HX: [...] Treatments, PreExisting Condition, Health Habits, About You 05/16/2022 PROMIS-10 General Health Good PROMIS-10 Quality of Life Good PROMIS-10 Physical Health Fair PROMIS-10 Mental Health Very Good PROMIS-10 Social Activity Good PROMIS-10 Everyday Activities A little PROMIS-10 Pain 5 PROMIS-10 Fatigue Mild PROMIS-10 Social Roles Fair PROMIS-10 Anxious or Depressed Rarely PROMIS PHYSICAL SCORE (range 16-68) 37.4 PROMIS MENTAL SCORE (range 21-68) 48.3 Treatments Tried - Prior Surgery - HOOS [...] Household Income - # People Supported - [place], , - Race - Health Literacy - [...] of breathing Musculoskeletal: Examination of the right lower extremity reveals that her incisions are clean, dryand intact. There is no erythema or evidence of infection. Sensation is intact to light touch throughout the foot. The foot is warm and well-perfused. She is able to dorsiflex and plantarflex all toes and ankle. DIAGNOSTIC STUDIES: Nonweightbearing right ankle films were taken to evaluate for postoperative changes. AP, lateral and oblique views of the right ankle show hardware is in place with no evidence ofhardware loosening or loss of fixation and a congruent mortise. ASSESSMENT: Status post right total ankle arthroplasty with hardware removal, doing well PLAN: At this time, the patient will begin weightbearing as tolerated in her boot. Sutures were removed. She was given wound care instructions. She will start physical therapy to work on range of motion. She was given a boot weaning program. She will return to clinic in 4 weeks time for repeat functional and radiographic evaluation. We should obtain weightbearing right ankle films at that time.. The patient expressed agreement with and understanding of this plan of care. The patient understandsto contact us if they have any other questions or concerns. The above documentation was completed using Huddler voice recognition software. Radha Omalley MD Department of Orthopaedics [facility] Pager: [phone] documented in this encounter Plan of Treatment Upcoming Encounters Date Type Department Care Team (Latest Contact Info) Description 08/25/2024 8:10 AM EST Hospital Encounter Outpatient [place] [address] Marvin Ash MD [facility] [place] [address] 08/25/2024 8:10 AM EST - 08/25/2024 9:30 AM EST Surgery Outpatient [place] [phone] Marvin Ash MD [facility] [place] [address] NEUROPLASTY &/OR TRANSPOSITION, ULNAR NERVE AT ELBOW (WRVU 7.26) 08/25/2024 9:40 AM EST Office Visit Dermatology at [address] [address] Gary Combs MD [facility] [place] [address] 09/10/2024 10:30 AM EST Office [place] [phone] Tess Florez PA [facility] [place] [address] Scheduled Procedures Name Priority Associated Diagnoses Date/Ti [...] Associated Diagnoses Orde r Schedule Referral to Physical Therapy Outpatient Referral Routine Post-traumatic osteoarthritis of right ankle Ordered: 05/23/2022 documented as of this encounter Visit Diagnoses Diagnosis Post-traumatic osteoarthritis of right ankle Carpal tunnel syndrome on right Carpal tunnel syndrome Cubital tunnel syndrome on right Lesion of ulnar nerve documented in this encounter Care Teams Lock Tender Chief Operator Relationship Specialty Start Date End Date Genie Abdullahi MD [facility] [address] [facility] [address] [place] [address] PCP - General 02/23/11 documented as of this encounter
--- OUTSIDE RECORDS SUMMARY | 2024-07-17 08:24 | XMS_ITS | Encounter Summary ---
Author Organization [facility] [place] [address] Care Team Providers Care Anchor Tacker Name Role Phone Genie Abdullahi MD Primary Care Provider [phone] Encounter Details Date Type Department Care Team (Late st Contact Info) Description 07/25/2020 Ancillary Procedure Radiology Library at [facility] [place] [phone] Genie Abdullahi MD [facility] [address] [facility] [address] [place], [place] [address] Social History Tobacco Use Types Packs/Day Years [...] AM EST Hospital Encounter [place]patient [place] [phone] Marvin Ash MD [facility] [place] [address] 08/25/2024 8:10 AM EST - 08/25/2024 9:30 AM EST Surgery Outpatient [place] [address] Marvin sAh MD [facility] [place] [address] NEUROPLASTY &/OR TRANSPOSITION, ULNAR NERVE AT ELBOW (WRVU 7.26) 08/25/2024 9:40 AM EST Office Visit Dermatology at [facility] [address] [place] [address] Gary Combs MD [facility] [place] [address] 09/10/2024 10:30 AM EST Office [place] [phone] Tess Florez PA [facility] [place] [address] Scheduled Procedures Name Priority Associated Diagnoses Date/Ti [...] Associated Diagnosis Comments FILM LIBRARY STORAGE ONLY MR LOWER EXTREMITY Routine 07/25/2020 12:00 AM EST documented in this encounter Results * Film Library- Storage Only MR Lower Extremity (07/25/2020 12:00 AM EST) Narrative MI - 08/21/2021 4:48 PM EST This exam is auto-finalizing. It's purpose is for storage only. Genie Abdullahi MD IMG FILM LIBRARY ORD ERABLES [place], [place] documented in this encounter Visit Diagnoses Not on filedocumented in this encounter Care Teams Anchor Tacker Relationship Specialty Start Date End Date Genie Abdullahi MD [facility] [address] [facility] [address] [place] [address] PCP - General 02/23/11 documented as of this encounter
--- OUTSIDE RECORDS SUMMARY | 2024-07-17 08:24 | XMS_ITS | Encounter Summary ---
[place] [address] Care Team Providers Care Bench Lathe Operator Name Role Phone Genie Abdullahi MD Primary Care Provider [phone] Encounter Details Date Type Department Care Team (Latest Contact Info) Description 09/21/2021 Travel Social History Tobacco Use Types Packs/Day [...] AM EST Hospital Encounter Outpatient [place] [address] Marvin Ash MD [facility] [place] [address] 08/25/2024 8:10 AM EST - 08/25/2024 9:30 AM EST Surgery Outpatient [place] [phone] Marvin Ash MD [facility] [place] [address] NEUROPLASTY &/OR TRANSPOSITION, ULNAR NERVE AT ELBOW (WRVU 7.26) 08/25/2024 9:40 AM EST Office Visit Dermatology at [address] [place] [address] Gary Combs MD [facility] [place] [address] 09/10/2024 10:30 AM EST Office [place] [address] Tess Florez PA [facility] [place] [address] Scheduled Procedures Name Priority Associated Diagnoses Date/Ti [...] on filedocumented in this encounter Care Teams Bench Lathe Operator Relationship Specialty Start Date End Date Genie Abdullahi MD [address] [place] [address] PCP - General 02/23/11 documented as of this encounter
--- OUTSIDE RECORDS SUMMARY | 2024-07-17 08:24 | XMS_ITS | Encounter Summary ---
Author Organization [facility] Address [facility] [place] [address] Care Team Providers Care Block Cutter Name Role Phone Genie Abdullahi MD Primary Care Provider [phone] Encounter Details Date Type Department Care Team (Latest Contact Info) Description 05/23/2022 9:31 AM EDT - 05/23/2022 11:59 PM EDT Hospital Encounter XRay at [address] [place] [address] Radha Omalley MD [facility] [place] [address] Post-traumatic osteoarthritis of right ankle Discharge Disposition: [...] azelastine (ASTELIN) 137 mcg (0.1 %) Aerosol, [place] [employer] 1 spray by Nasal route 2 times daily. Use in each nostril as directed 05/19/2024 documented as of this encounter Plan of Treatment Upcoming Encounters Date Type Department Care Team (Latest Contact Info) Description 08/25/2024 8:10 AM EST Hospital Encounter Outpatient [place] [address] Marvin Ash MD [facility] [place] [address] 08/25/2024 8:10 AM EST - 08/25/2024 9:30 AM EST Surgery Outpatient [place] [address] Marvin Ash MD [facility] [place] [address] NEUROPLASTY &/OR TRANSPOSITION, ULNAR NERVE AT ELBOW (WRVU 7.26) 08/25/2024 9:40 AM EST Office Visit Dermatology at [facility] [address] [place] [phone] Gary Combs MD [facility] [address] [place] [place] [address] 09/10/2024 10:30 AM EST Office [place] [phone] Tess Florez PA [facility] [place] [address] Scheduled Procedures Name Priority Associated Diagnoses Date/Ti [...] XR ANKLE MIN 3 VIEWS RIGHT Routine 05/23/2022 9:57 AM EDT Post-traumatic osteoarthritis of right ankle documented in this encounter Results * XR Ankle Min 3 views Right (Generic) (05/23/2022 9:57 AM EDT) Anatomical Region Laterality Modality Ankle Right Digital Radiogra phy Impressions 05/23/2022 11:39 AM EDT Right total ankle arthroplasty without radiographic complication. I have personally reviewed the image(s) and the resident's interpretation and agree with the findings, Virgie Patel MD at 05/23/2022 11:39 AM Thank you for letting us participate in the care of this patient. ??If you are a health care provider and have any questions regarding this report, please contact the number below. ??For patients who have questions please contact the health youth care professional that requested your imaging first. ? Electronically signed by: Virgie Patel MD, [facility] ([phone]), at 05/23/2022 11:39 AM Narrative 05/23/2022 11:39 AM EDT EXAMINATION: XR ANKLE MIN 3 VIEWS RIGHT (GENERIC) CLINICAL HISTORY: s/p TAA Perform NWB TECHNIQUE: 3 views RIGHT ankle COMPARISON: CT 02/12/2022, radiographs 09/14/2021, fluoroscopic images 05/10/2022 FINDINGS: Status post right total ankle arthroplasty. Arthroplasty components are intact and in similar alignment to intraoperative fluoroscopic images. There has been interval removal of fixation hardware within the distal tibia and fibula. Diffuse osseous demineralization, likely secondary to disuse. No acute fracture. Procedure Note Virgie Patel MD - 05/23/2022 EXAMINATION: XR ANKLE MIN 3 VIEWS RIGHT (GENERIC) CLINICAL HISTORY: s/p TAA Perform NWB TECHNIQUE: 3 views RIGHT ankle COMPARISON: CT 02/12/2022, radiographs 09/14/2021, fluoroscopic images 05/10/2022 FINDINGS: Status post right total ankle arthroplasty. Arthroplasty components areintact and in similar alignment to intraoperative fluoroscopic images. There hasbeen interval removal of fixation hardware within the distal tibia andfibula. Diffuse osseous demineralization, likely secondary to disuse. No acutefracture. IMPRESSION Right total ankle arthroplasty without radiographic complication. I have personally reviewed the image(s) and the resident's interpretationand agree with the findings, Virgie Patel MD at 05/23/2022 11:39 AM Thank you for letting us participate in the care of this patient. If youare a health care provider and have any questions regarding this report,please contact the number below. For patients who have questions please contactthe health youth care professional that requested your imaging first. Electronically signed by: Virgie Patel MD, [facility]([phone]), at 05/23/2022 11:39 AM Radha Omalley MD IMG DX ORDERABLES documented in this encounter Visit Diagnoses Diagnosis Post-traumatic osteoarthritis of right ankle Carpal tunnel syndrome on right Carpal tunnel syndrome Cubital tunnel syndrome on right Lesion of ulnar nerve documented in this encounter Care Teams Block Cutter Relationship Specialty Start Date End Date Genie Abdullahi MD [facility] [address] [place] [address] PCP - General 02/23/11 documented as of this encounter
--- OUTSIDE RECORDS SUMMARY | 2024-07-17 08:24 | XMS_ITS | Encounter Summary ---
Author Organization [facility] [place] [address] Care Team Providers Care Director Of Donor Relations Name Role Phone Genie Abdullahi MD Primary Care Provider [phone] Encounter Details Date Type Department Care Team (Late st Contact Info) Description 05/14/2022 Orders [place] [phone] Radha Omalley MD [facility] [place] [address] Post-traumatic osteoarthritis of right ankle Social History [...] EST Hospital Encounter Outpatient [place] [phone] Marvin Ash MD [facility] [place] [address] 08/25/2024 8:10 AM EST - 08/25/2024 9:30 AM EST Surgery Outpatient [place] [address] Marvin Ash MD [facility] [place] [address] NEUROPLASTY &/OR TRANSPOSITION, ULNAR NERVE AT ELBOW (WRVU 7.26) 08/25/2024 9:40 AM EST Office Visit Dermatology at [facility] [address] [place] [address] Gary Combs MD [facility] [place] [address] 09/10/2024 10:30 AM EST Office [place] [phone] Tess Florez PA [facility] [place] [address] Scheduled Procedures Name Priority Associated Diagnoses Date/Ti [...] who have questions please contact the health health care assistant that requested your imaging first. ? Electronically signed by: Virgie Patel MD, [facility] ([phone]), at 05/23/2022 11:39 AM Narrative 05/23/2022 11:39 [...] patients who have questions please contactthe health health care assistant that requested your imaging first. Radha Omalley MD IMG DX ORDERABLES documented in this encounter Visit Diagnoses Diagnosis Post-traumatic osteoarthritis of right ankle Post-traumatic osteoarthritis of right ankle Carpal tunnel syndrome on right Carpal tunnel syndrome Cubital tunnel syndrome on right Lesion of ulnar nerve documented in this encounter Care Teams Director Of Donor Relations Relationship Specialty Start Date End Date Genie Abdullahi MD [facility] [address] [facility] 1 [place] [address] PCP - General 02/23/11 documented as of this encounter
--- OUTSIDE RECORDS SUMMARY | 2024-07-17 08:24 | XMS_ITS | Encounter Summary ---
[place] [address] Care Team Providers Care Principal Web Developer Name Role Phone Genie Abdullahi MD Primary Care Provider [phone] Reason for Referral * Diagnostic Test (Routine) - Closed Specialty Diagnoses / Procedures Referred By Contac t Referred To Contact Radiology Diagnoses Chronic low back pain, unspecified back pain laterality, unspecified whether sciatica present Procedures MRI Lumbar Spine wo Contrast (Generic) Ephraim Agarwal MD [facility] [place] [address] [place] [address] Referral ID Status Reason Start Date Expiration Date V isits Requested Visits Authorized [id number] Closed Specialty Service Requested 09/10/2021 12/09/2021 1 1 Reason for Visit * Reason Comments Establish Care Revised R MAUREEN Metal on Metal * Consultation (Routine) - Closed Specialty Diagnoses / Procedures Referred By Contac t Referred To Contact Orthopaedics Diagnoses REVISED R MAUREEN METAL ON METAL Amilcar Roman MD [address] [place] [address] [facility] [address] [place] [phone] Referral ID Status Reason Start Date Expiration Date V isits Requested Visits Authorized [id number] Closed Consult, Test & Treat Connection [facility] PCP Updated and/or Approved 08/24/2021 08/24/2022 6 6 Encounter Details Date Type Department Care Team (Late st Contact Info) Description 09/06/2021 10:30 AM EST Office [place] [address] Odell Merchant MD [facility] [place] [address] Chronic low back pain, unspecified back pain laterality, unspecified whether sciatica present Social History Tobacco Use Types Packs/Day Years [...] Sign Reading Time Taken Comments Blood Pressure 122/66 09/06/2021 10:21 AM EST Pulse 95 09/06/2021 10:21 AM EST Temperature - - Respiratory Rate - - Oxygen Saturation - - Inhaled Oxygen Concentration - - Weight 79.8 kg (176 lb) 09/06/2021 10:21 AM EST Height 170.2 cm (5' 7) 09/06/2021 10:21 AM EST Body Mass Index 27.57 09/06/2021 10:21 AM EST documented in this encounter Progress Notes * Ephraim Agarwal MD - 09/06/2021 10:30 AM EST Images from the original note were not included. Department of Orthopaedics Division of Adult Joint Reconstructive Surgery ARTHROPLASTY HISTORY/PREVIOUS HIP SURGERY: 1. R MAUREEN MoM Revision - ceramic on poly (Abel 08/10/20) Subjective: Chandrika Casanova is a 55 y.o. female who presents with Right hip pain and clicking. Side was sent here for second opinion by Dr. Roman as relates to her right total hip. As noted above, she was recently over a year ago revised from a [id number] hip to a ceramic on polyhip forconcern of some pain and local pseudotumor and elevated ions. She states that she did relatively well but has always had some issues with clicking as well as some burning and pain sensation. This burning/clicking has been worsening over the past several months. She does state that she has longstanding back issues and has lower back pain and sciatica that bothers her as well. Pain is primarily lateral aspect of her right hip and buttock region. She was worked up with Dr. Roman with an MRI which showed some local inflammatory collection/response which likely related to postsurgical change as well as likely overriding artifact of potentialsuture over the greater trochanter. Radiographs demonstrated heterotopic ossification off the greater trochanter count of a staghorn orientation which may be bothersome and causing some irritation tothe IT band/trochanteric bursitis. Bone scan was also ordered which does not demonstrate any significant uptake concerning for loosening of the right total hip arthroplasty. However, the previous ankle surgery did show increased uptake and she is visiting with Dr. Omalley in the near future to discuss her right ankle. She denies any systemic symptoms including fevers chills nausea vomiting chest pain shortness of breath. She states her incision is very well-healed and she had no issues in healing her wound. REVIEW OF SYSTEMS: Chandrika denies fevers, chills, night sweats, nausea, or vomiting. QUESTIONNAIRE RESPONSES: General Health, Prior Treatments, PreExisting Condition, Health Habits, About You 09/06/2021 PROMIS-10 General Health Fair PROMIS-10 Quality of Life Fair PROMIS-10 Physical Health Fair PROMIS-10 Mental Health Very Good PROMIS-10 Social Activity Good PROMIS-10 Everyday Activities Mostly PROMIS-10 Pain 5 PROMIS-10 Fatigue Moderate PROMIS-10 Social Roles Good PROMIS-10 Anxious or Depressed Rarely PROMIS PHYSICAL SCORE (range 16-68) 39.8 PROMIS MENTAL SCORE (range 21-68) 45.8 Treatments Tried Regular exercise, Heat and ice therapy, Physical therapy HOOS JR Scores 70.43 MAUREEN Grade 6 Alzheimers or dementia No Cirrohosis or liver [...] $75,000 or more # People Supported 2 [place]er, , No, not [place]er// Race White Health Literacy Quite a bit Currently working Yes Current job situation Full-time [facility] Response 09/06/2021 HOOS JR Scores 70.43 OSWESTRY DISABILITY INDEX - Spine [facility] Response 09/06/2021 Oswestry (MARY LOU) Score - Neck (NDI) Score - HOOS JR Scores 70.43 ALLERGIES Allergies Allergen Reactions ??? Adhesive Tape Rash ??? Bactrim [Sulfamethoxazole-Trimethoprim] Rash ??? Keflex [Cephalexin] Rash SOCIAL HISTORY: reports that she has never smoked. She has never used smokeless tobacco. She reports that she does not use drugs. SIGNIFICANT MEDICAL COMORBIDITIES: Patient Active Problem List Diagnosis Code ??? Diabetes mellitus type 1.5, managed as type 2 E13.9 ??? Nevus D22.9 ??? Low back pain M54.50 ??? Lumbar herniated disc M51.26 Objective: BP 122/66 (BP Location (NBP): Left arm, Patient Position: Sitting, BP Cuff Sizes: Adult (25-34 cm)) Pulse 95 Ht 170.2 cm (5' 7) Wt 79.8 kg (176 lb) BMI 27.57 kg/m?? General : alert, appears stated age and cooperative Gait: Normal. The patient can bear weight on the injured extremity. I have made the following determinations: Hip Exam: Right Prior surgery on this joint:Yes Leg Length: Longer leg: left Limb Length discrepancy: 2cm Motion: Flexion contracture: 0 Total degrees of Flexion: 85 Total degrees of Abduction: 35 Total degrees of Ext Rotation: 20 Total degrees of Internal Rotation: 10 Gait Abnormality: Normal Skin Integrity: Normal Pulses Palpable: Right PT: Yes Right DP: Yes Motor/Sensory: Right Distal Motor: Normal and weakness Distal Sensory: Normal Hip Abductors: 4+ Imaging: Radiographs of the right hip demonstrate no obvious signs of hardware complication or fracture dislocation of the right total hip arthroplasty. There is signs of heterotopic ossification stemming offof the right greater trochanter and a staghorn orientation. MRI previously reviewed does demonstrate some small fluid uptake increased signal intensity of the right hip joint which likely results in postsurgical change. Additionally, there does appear to be some artifact likely or potentially suture over the greater trochanter from the repair on the surgical approach. Bone scan was reviewed and does not show any obvious signs of uptake in the hip joint itself and there is some uptake in the right ankle. Assessment: Ms. Casanova is a 55 y.o. year old female who is status post revision right total hip arthroplasty from [id number] to ceramic on poly with Dr. Roman on 08/10/2020. Plan: We did discuss Chandrika's past medical history and nature of possible causes of her right-sided pain/clicking of their hip. This is likely multifactorial and we did discuss again that [id number] revisions with residual ions may cause some discomfort and vague symptoms of inflammatory responses such as greater trochanteric bursitis. Additionally, it does appear as though she has concomitant back pain related issues and we will further examine this with a lumbar MRI to see if there are any obvious causes from spinal pathology. 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 We will advise for her to use a trekking pole or cane when ambulation to assist her. We would recommend continuation of analgesia [id number]-[id number] as well as topical Voltaren cream and lumbar MRI as stated above. We did discuss possible surgical intervention involving greater trochanteric debridement and possible debridement and resection of the heterotopic ossification bone spur lesion as well as removal of nonabsorbable suture that may be causing clicking/popping sensation. Again, this would be reserved in the future if her symptoms do not resolve with the above measures. Ephraim Agarwal MD * Odell Merchant MD - 09/06/2021 10:30 AM EST I performed a history and physical examination of the patient and discussed the management plan with Quinten Agarwal MD. I also discussed the different treatment options, as well as the risks and benefits of each with the patient and questions were answered. I reviewed the note and agree with the documented findings and plan of care. Odell Merchant MD 09/22/2021 documented in this encounter Plan of Treatment Upcoming Encounters Date Type Department Care Team (Latest Contact Info) Description 08/25/2024 8:10 AM EST Hospital Encounter [place] [phone] Marvin Ash MD [facility] [place] [address] 08/25/2024 8:10 AM EST - 08/25/2024 9:30 AM EST Surgery [place] [phone] Marvin Ash MD [facility] [place] [address] NEUROPLASTY &/OR TRANSPOSITION, ULNAR NERVE AT ELBOW (WRVU 7.26) 08/25/2024 9:40 AM EST Office Visit Dermatology at [address] [place] [address] Gary Combs MD [facility] [address] [place] [place] [address] 09/10/2024 10:30 AM EST Office [place] [address] Tess Florez PA [facility] [place] [address] Scheduled Procedures Name Priority Associated Diagnoses Date/Ti me NEUROPLASTY &/OR TRANSPOSITION, ULNAR NERVE AT ELBOW (WRVU 7.26) Carpal tunnel syndrome on right Cubital tunnel syndrome on right 08/25/2024 8:10 AM EST ENDOSCOPY WRIST W/ RELEASE TRANSVERSE CARPAL LIGAMENT (WRVU 6.39) Carpal tunnel syndrome on right Cubital tunnel syndrome on right 08/25/2024 8:10 AM EST documented as of this encounter Results * MRI Lumbar Spine wo Contrast (Generic) (09/21/2021 8:31 PM EST) Anatomical Region Laterality Modality L-spine Magnetic Resonan ce Impressions 09/22/2021 10:08 AM EST Mild lumbar spondylosis. Comment: The following findings are so common in people without low back pain that while we report their presence, they must be interpreted with caution and in context of the clinical situation (Reference- Lalitak Et Al, Spine 2001). Findings: (Prevalence in [...] who have questions please contact the health resident care aid that requested your imaging first. ? Narrative 09/22/2021 10:08 AM EST EXAMINATION: MRI [...] the clinical situation (Reference- Jarvik Et Al, [id number]). Findings: (Prevalence in patients without low back [...] patients who have questions please contactthe health resident care aid that requested your imaging first. Odell Merchant MD IMG MRI ORDERABLES documented in this encounter Visit Diagnoses Diagnosis Chronic low back pain, unspecified back pain laterality, unspecified whether sciatica present Chronic low back pain, unspecified back pain laterality, unspecified whether sciatica present Carpal tunnel syndrome on right Carpal tunnel syndrome Cubital tunnel syndrome on right Lesion of ulnar nerve documented in this encounter Care Teams Principal Web Developer Relationship Specialty Start Date End Date Genie Abdullahi MD [facility] [address] [place] [address] PCP - General 02/23/11 documented as of this encounter
--- OUTSIDE RECORDS SUMMARY | 2024-07-17 08:24 | XMS_ITS | Encounter Summary ---
Author Organization [facility] [place] [address] Care Team Providers Care Welder Tack Name Role Phone Genie Abdullahi MD Primary Care Provider [phone] Encounter Details Date Type Department Care Team (Late st Contact Info) Description 06/22/2019 Ancillary Procedure Radiology Library at [facility] [place] [phone] Genie Abdullahi MD [facility] [address] M[address] [facility] [address] [place], [place] [address] Social History Tobacco Use Types Packs/Day Years [...] AM EST Hospital Encounter Outpatient [place] [phone] Marvin Ash MD [facility] DR [place] [address] 08/25/2024 8:10 AM EST - 08/25/2024 9:30 AM EST Surgery Outpatient [place] [address] Marvin Ash MD [facility] [place]OP[place] [address] NEUROPLASTY &/OR TRANSPOSITION, ULNAR NERVE AT ELBOW (WRVU 7.26) 08/25/2024 9:40 AM EST Office Visit Dermatology at [facility] [address] [place] [address] Gary Combs MD [facility] [address] 09/10/2024 10:30 AM EST Office [place] [address] Tess Florez PA [facility] [place] [address] Scheduled Procedures Name Priority Associated Diagnoses Date/Ti [...] Diagnosis Comments FILM LIBRARY STORAGE ONLY DX ANKLE Routine 06/22/2019 12:00 AM EST documented in this encounter Results * Film Library- Storage Only DX Ankle (06/22/2019 12:00 AM EST) Narrative [facility] - 07/25/2021 11:47 AM EST This exam is auto-finalizing. It's purpose is for storage only. Genie Abdullahi MD IMG FILM LIBRARY ORD ERABLES [place], [place] documented in this encounter Visit Diagnoses Not on filedocumented in this encounter Care Teams Welder Tack Relationship Specialty Start Date End Date Genie Abdullahi MD [address] [place] [address] PCP - General 02/23/11 documented as of this encounter
--- OUTSIDE RECORDS SUMMARY | 2024-07-17 08:24 | XMS_ITS | Encounter Summary ---
Author Organization [facility] [place] [address] Care Team Providers Care Fat Pressroom Worker Name Role Phone Genie Abdullahi MD Primary Care Provider [phone] Encounter Details Date Type Department Care Team (Late st Contact Info) Description 08/18/2021 Ancillary Procedure Radiology Library at [facility] [place] [address] Genie Abdullahi MD [facility] [address] MENDES [facility] [address] [place], [place] [id number] Social History Tobacco Use Types Packs/Day Years [...] AM EST Hospital Encounter [place]patient [place] [phone] Marvin Ash MD [facility] [place] [address] 08/25/2024 8:10 AM EST - 08/25/2024 9:30 AM EST Surgery [place]patient [place] [address] Marvin Ash MD [facility] [place] [address] NEUROPLASTY &/OR TRANSPOSITION, ULNAR NERVE AT ELBOW (WRVU 7.26) 08/25/2024 9:40 AM EST Office Visit Dermatology at [facility] [address] [place] [address] Gary Combs MD [facility] [place] [address] 09/10/2024 10:30 AM EST Office [place] [address]1000 Tess Florez PA [facility] [place] [address] Scheduled Procedures Name Priority Associated Diagnoses Date/Ti [...] Associated Diagnosis Comments FILM LIBRARY STORAGE ONLY NM PET/CT Routine 08/18/2021 12:00 AM EST documented in this encounter Results * Film Library- Storage Only NM Pet / CT (08/18/2021 12:00 AM EST) Narrative [facility] - 08/21/2021 4:47 PM EST This exam is auto-finalizing. It's purpose is for storage only. Genie Abdullahi MD IMG FILM LIBRARY ORD ERABLES [place], [place] documented in this encounter Visit Diagnoses Not on filedocumented in this encounter Care Teams Fat Pressroom Worker Relationship Specialty Start Date End Date Genie Abdullahi MD [facility] [address] [place] [address] PCP - General 02/23/11 documented as of this encounter
--- OUTSIDE RECORDS SUMMARY | 2024-07-17 08:24 | XMS_ITS | Encounter Summary ---
Author Organization [facility] [place] [address] Care Team Providers Care Professional Application Designer Name Role Phone Genie Abdullahi MD Primary Care Provider [phone] Encounter Details Date Type Department Care Team (Late st Contact Info) Description 05/29/2022 Orders [place] [phone] [facility] [place] [address] Post-traumatic osteoarthritis of right ankle Social History [...] AM EST Hospital Encounter [place]patient [place] [phone] [facility] [place] [address] 08/25/2024 8:10 AM EST - 08/25/2024 9:30 AM EST Surgery [place] [address] [facility] [place] [address] NEUROPLASTY &/OR TRANSPOSITION, ULNAR NERVE AT ELBOW (WRVU 7.26) 08/25/2024 9:40 AM EST Office Visit Dermatology at [facility] [address] [place] [address] [facility] [place] [address] 09/10/2024 10:30 AM EST Office Visit [place] [address] [facility] [place] [address] Scheduled Procedures Name Priority Associated Diagnoses Date/Ti [...] have questions please contact the health animal daycare provider that requested your imaging first. ? Electronically signed by: Janneth Bearden MD, [facility] ([phone]), at 07/04/2022 4:54 PM Narrative 07/04/2022 4:54 [...] who have questions please contactthe health animal daycare provider that requested your imaging first. Radha Omalley MD IMG DX ORDERABLES documented in this encounter Visit Diagnoses Diagnosis Post-traumatic osteoarthritis of right ankle Post-traumatic osteoarthritis of right ankle Carpal tunnel syndrome on right Carpal tunnel syndrome Cubital tunnel syndrome on right Lesion of ulnar nerve documented in this encounter Care Teams Professional Application Designer Relationship Specialty Start Date End Date Genie Abdullahi MD [facility] [address] [place] [address] PCP - General 02/23/11 documented as of this encounter
--- OUTSIDE RECORDS SUMMARY | 2024-07-17 08:24 | XMS_ITS | Encounter Summary ---
Author Organization [facility] Address [facility] [address] Care Team Providers Care Player Manager Name Role Phone Genie Abdullahi MD Primary Care Provider [phone] Reason for Referral * Physical Therapy (Routine) - Closed Specialty Diagnoses / Procedures Referred By Gina terrell Referred To Contact Physical Therapy Diagnoses Post-traumatic osteoarthritis of right ankle Radha Omalley MD [facility] [place] [address] Referral ID Status Reason Start Date Expiration Date V isits Requested Visits Authorized [id number] Closed Evaluate and Treat 07/04/2022 12/31/2022 20 20 Reason for Visit * Reason Comments Follow Up Surgery Encounter Details Date Type Department Care Team (Latest Contact Info) Description 07/04/2022 3:15 PM EST Office [place] [address] Radha Omalley MD [facility] [place] [address] Post-traumatic osteoarthritis of right ankle Social History [...] Sign Reading Time Taken Comments Blood Pressure 148/68 07/04/2022 3:00 PM EST Pulse 95 07/04/2022 3:00 PM EST Temperature - - Respiratory Rate - - Oxygen Saturation - - Inhaled Oxygen Concentration - - Weight 81.6 kg (180 lb) 07/04/2022 3:00 PM EST Height 170.2 cm (5' 7) 07/04/2022 3:00 PM EST Body Mass Index 28.19 07/04/2022 3:00 PM EST documented in this encounter Progress Notes * Bobbi Edmonds - 07/04/2022 3:15 PM EST I saw and evaluated the patient on the date of the primary author's note. I have reviewed and agree with the findings and the plan of care as outlined in their note, with the following additions or alterations: The patient is doing fairly well following her right total ankle arthroplasty. She does not report a significant amount of pain but does report swelling and stiffness. She has been working with physical therapy and her physical therapist is encouraged her to work on the bike but is not getting veryaggressive with her on range of motion yet. She denies any fevers or chills. She is definitely havin g some difficulty with her back and is discouraged that she still feels a leg length discrepancy. Her radiographs show that her implant is in place with no evidence of hardware loosening or loss of fixation. Her mortise is neutral. Her gutters are clear. On range of motion she has approximately 10 degrees of dorsiflexion and 15 degrees of plantarflexion. I gave her a new physical therapy prescription encouraging her physical therapist to be more aggressive with ankle range of motion. We will see her back in clinic in 2 months time for repeat functional and radiographic evaluation. We should obtain weightbearing right ankle films at that time. Radha Omalley MD Orthopaedic Surgery Attending PATIENT NAME: Chandrika Casanova AGE: 56 y.o. MR#: [id number] DATE OF VISIT: 07/04/2022 STAFF: Radha Omalley MD FOLLOW UP FOR: Right TAA on 05/10/2022 HISTORY OF PRESENT ILLNESS: Ms. Casanova is a 56 y.o. female who comes into clinic today for follow up of her right TAA done by Dr. Omalley on 05/10/2022. She presents to the office today, doing well currently out of her boot for a few weeks.. She states that she has minimal pain but is mainly concernedwith stiffness. She has been working with PT BID but states that her PT is mainly working on ROM and massaging. She states that she has been walking with a walker even pre surgery due to hip and backcane and has continued using her cane. She denies fevers, chills. She denies recent falls. Medications and Allergies were reviewed in eD-H [...] 14.42) performed by Radha Omalley MD at [facility] OSC ??? PRO LAMINOTOMY, LUMBAR DISK, 1 INTRSP 08/24/2013 LAMINOTOMY, DECOMPRESSION, FORAMINOTOMY, LUMBAR performed by Sal Phan MD at [facility] MAIN OR ??? PRO MICROSURG TECHNIQUES, REQ OPER MICROSCOPE 08/24/2013 MICROSCOPE USE performed by Sal Phan MD at [facility] MAIN OR ??? PRO REMOVAL DEEP IMPLANT Right 05/10/2022 REMOVAL OF IMPLANT, DEEP, ANKLE (WRVU 5.96) performed by Radha Omalley MD at [facility] OSC ??? TONSILLECTOMY FAMILY HX: Family History [...] Treatments, PreExisting Condition, Health Habits, About You 06/29/2022 PROMIS-10 General Health Good PROMIS-10 Quality of Life Good PROMIS-10 Physical Health Good PROMIS-10 Mental Health Good PROMIS-10 Social Activity Good PROMIS-10 Everyday Activities Moderately PROMIS-10 Pain 2 PROMIS-10 Fatigue Mild PROMIS-10 Social Roles Good PROMIS-10 Anxious or Depressed Rarely PROMIS PHYSICAL SCORE (range 16-68) 44.9 PROMIS MENTAL SCORE (range 21-68) 45.8 Treatments Tried - Prior Surgery - HOOS [...] Household Income - # People Supported - Ukrainian, , - Race - Health Literacy - [...] Lungs: no extra work of breathing Musculoskeletal: Right Foot/[place] - Incisions dry, non erythematous, with no drainage - Neurovascularly intact - Ankle ROM- Dorsiflexion: 15 degrees, Plantarflexion: 25 degrees DIAGNOSTIC STUDIES: Right Ankle Xray: - Ankle alignment is well maintained with appropriate medial clear space - Hardware is well fixed with no evidence of breakage or failure ASSESSMENT: Ms. Casanova is a 56 y.o. woman here for f/u of her TAA who is doing well but does have some residual stiffness. She has been given a new PT script with aggressive ankle ROM protocol. She has been encourage to keep working on her ROM with squats and ankle dorsiflexion holds. She will follow up with radiographs in 2 months. PLAN: - Continue working with PT and increasing exercise to aggressive ankle ROM - Follow up in 2 months with radiographs Bobbi Grey, MS4 Department of Orthopaedics [facility] documented in this encounter Plan of Treatment Upcoming Encounters Date Type Department Care Team (Latest Contact Info) Description 08/25/2024 8:10 AM EST Hospital Encounter Outpatient [place] [address] Marvin Ash MD [facility] [place] [address] 08/25/2024 8:10 AM EST - 08/25/2024 9:30 AM EST Surgery Outpatient [place] [phone] Marvin Ash MD [facility] [place] [address] NEUROPLASTY &/OR TRANSPOSITION, ULNAR NERVE AT ELBOW (WRVU 7.26) 08/25/2024 9:40 AM EST Office Visit Dermatology at [place] [address] [place] [address] Gary Combs MD [facility] [place] [address] 09/10/2024 10:30 AM EST Office [place] [address] Tess Florez PA [facility] [place] [address] Scheduled Procedures Name Priority Associated Diagnoses Date/Ti [...] Routine Post-traumatic osteoarthritis of right ankle Ordered: 07/04/2022 documented as of this encounter Visit Diagnoses Diagnosis Post-traumatic osteoarthritis of right ankle Carpal tunnel syndrome on right Carpal tunnel syndrome Cubital tunnel syndrome on right Lesion of ulnar nerve documented in this encounter Care Teams Player Manager Relationship Specialty Start Date End Date Genie Abdullahi MD [address] [place], [place] [address]RAY MENDES [facility] [address] [place] [address] PCP - General 02/23/11 documented as of this encounter
--- OUTSIDE RECORDS SUMMARY | 2024-07-17 08:24 | XMS_ITS | Encounter Summary ---
Author Organization [facility] [place] [address] Care Team Providers Care Media Relations Coordinator Name Role Phone Genie Abdullahi MD Primary Care Provider [phone] Reason for Visit * Auth/Cert Specialty Diagnoses / Procedures Referred By Gina t Referred To Contact Diagnoses Post-traumatic osteoarthritis of right ankle Right end stage ankle arthritis Procedures PRO ARTHROPLASTY ANKLE WITH IMPLANT PRO REMOVAL DEEP IMPLANT PRO GASTROCNEMIUS RECESSION TOTAL ANKLE ARTHROPLASTY (WRVU 14.42) REMOVAL OF IMPLANT, DEEP, ANKLE (WRVU 5.96) GASTROCNEMIUS RECESSION (WRVU 6.41) Radha Omalley MD [facility] [place] [address] [facility] Referral ID Status Reason Start Date Expiration Date Visits Re quested Visits Authorized [id number] 1 1 Encounter Details Date Type Department Care Team (Latest Contact Info) Description 05/10/2022 11:58 AM EDT - 05/10/2022 7:04 PM EDT Hospital Encounter [place] [address] Radha Omalley MD [facility] [place] [address] Post-traumatic osteoarthritis of right ankle Discharge Disposition: [...] Sign Reading Time Taken Comments Blood Pressure 132/75 05/10/2022 6:30 PM EDT Pulse 94 05/10/2022 5:30 PM EDT Temperature 36.2 ??C (97.2 ??F) 05/10/2022 [...] closest emergency room or call the hospital joy operator helper at [phone] and ask for physician condenser setter covering for your physician. Questions or problems after 5pm or on a weekend: Call the [facility] joy operator helper at and ask for the physician condenser setter covering for your doctor. Lower Extremity Nerve [...] after hours and ask for the anesthesiologist condenser setter. [facility] Learning About Deep Vein Thrombosis What [...] more? Visit our health information library at [email or web address]. You can alsoview health information on [employer], your personal patient account. Log in or sign up today. Enter X941 in the search box to learn more about Learning About Deep Vein Thrombosis. ?? [phone] [employer]. Care instructions adapted under license by [facility]. This care instruction is for use with your licensed healthcare professional. If you have questions about a medical condition or this instruction, always ask your healthcare professional. [employer] disclaims any warranty or liability for your use of this information. Content Version: 8.9.54110; Last Revised: September 20, 2009 * Patient [...] bowel movement. You can also take an ctao-qlm-[id number] medication, Miralax if needed to combat constipation. [...] 1. You will have follow-up appointments at [facility] as indicated in Future Appointment and Orders. [...] Time Provider Department Center 05/23/2022 10:00 AM [facility] DX ROOM 1 Xray [facility] Rad 05/23/2022 10:45 AM Radha Omalley MD [facility] ORTH [address]A [facility] If you have questions or concerns: Saturday [...] azelastine (ASTELIN) 137 mcg (0.1 %) Aerosol, [place] 1 spray by Nasal route 2 times [...] by Katie and they are aware to pickle water pump operator at [facility]. Patient/escort encouraged to call with questions or [...] LUMBAR performed by Sal Phan MD at [facility] MAIN OR ??? PRO MICROSURG TECHNIQUES, REQ OPER MICROSCOPE 08/24/2013 MICROSCOPE USE performed by Sal Phan MD at [facility] MAIN OR ??? TONSILLECTOMY Home Medications: Medications [...] azelastine (ASTELIN) 137 mcg (0.1 %) Aerosol, [place] 1 spray by Nasal route 2 times [...] Operative Note Patient Name: Chandrika Casanova : [id number] MR#: [id number] Case Date: 05/10/2022 Surgeon: Surgeon(s) and Role: [...] Omalley MD - 05/10/2022 1:[address] [facility] Operative Note Patient Name: Chandrika Casanova : [id number] MR#: [id number] Case Date: 05/10/2022 Surgeon: Surgeon(s) and Role: [...] to be engaged by visualizing the alignment rosebud on AP fluoroscopy and confirming that it [...] Implant Name Type Inv. Item Serial No. Pediatric Medical Assistant Lot No. LRB No. Used Action GRAFT BONE FILLER 1CC DBM INJECTABLE PUTTY ALLOMATRIX ([id number]) (AutoReq) - [id number] IMPLANTS GRAFT BONE FILLER 1CC DBM INJECTABLE PUTTY ALLOMATRIX ([id number]) (AutoReq) [id number] [employer] - XEMAX SURG Right 1 Implanted COMPONENT TIBIAL ANKLE JOINT 16MM RT LT INBONE ([id number]) (AutoReq) - [id number] IMPLANTS COMPONENT TIBIAL ANKLE JOINT 16MM RT LT INBONE ([id number]) (AutoReq) [facility] [id number] Right 1 Implanted COMPONENT TIBIAL ANKLE JOINT 16MM RT LT INBONE ([id number]) - [id number] IMPLANTS COMPONENT TIBIAL ANKLE JOINT 16MM RT LT INBONE ([id number]) [facility] - [employer] MED [id number] Right 1 Implanted COMPONENT TIBIAL ANKLE JOINT SZ 3 RT LONG INBONE ([id number]) (AutoReq) - [id number] IMPLANTS COMPONENT TIBIAL ANKLE JOINT SZ 3 RT LONG INBONE (3584400) (AutoReq) [facility] - [employer] MED [id number] Right 1 Implanted COMPONENT SUBTALAR ANKLE JOINT 10MM SZ 1 LRG INBONE ([id number]) (AutoReq) - [id number] IMPLANTS COMPONENT SUBTALAR ANKLE JOINT 10MM SZ 1 LRG INBONE ([id number]) (AutoReq) [facility] [place] - [employer] MED [id number] Right 1 Implanted DOME TALAR SULCUS ANKLE JOINT SZ 3 INBONE (8543668) (AutoReq) - [id number] IMPLANTS DOME TALAR SULCUS ANKLE JOINT SZ 3 INBONE ([id number]) (AutoReq) [facility] - [employer] MED [id number] Right 1 Implanted INSERT TIBIAL ANKLE JOINT 8MM SZ 3 RT LT POLY ([id number]) (AutoReq) - [id number] IMPLANTS INSERT TIBIAL ANKLE JOINT 8MM SZ 3 RT LT POLY ([id number]) (AutoReq) [facility] - [employer] MED [id number] Right 1 Implanted Surgical Infection Prevention Bundle Used? No Attestation: Case Date: 05/10/2022 I was present and I participated during the entire procedure (does not need to include opening and closing). Radha Omalley MD 05/10/2022 documented in this encounter Plan of Treatment Upcoming Encounters Date Type Department Care Team (Latest Contact Info) Description 08/25/2024 8:10 AM EST Hospital Encounter [place] [address] Marvin Ash MD [facility] [place] [address] 08/25/2024 8:10 AM EST - 08/25/2024 9:30 AM EST Surgery [place] [address] Marvin Ash MD [facility] [place] [address] NEUROPLASTY &/OR TRANSPOSITION, ULNAR NERVE AT ELBOW (WRVU 7.26) 08/25/2024 9:40 AM EST Office Visit Dermatology at [facility] [address] [place] [address] Gary Combs MD [facility] [place] [address] 09/10/2024 10:30 AM EST Office [place] [address] Tess Florez PA [facility] [place] [address] Scheduled Procedures Name Priority Associated Diagnoses Date/Ti [...] 05/10/2022 2:46 PM EDT Removal Deep Implant ([id number]) 05/10/2022 1:32 PM EDT Post-traumatic osteoarthritis of right ankle Arthroplasty Ankle With Implant ([id number]) 05/10/2022 1:32 PM EDT Post-traumatic osteoarthritis of [...] Glucose, POC 73 65 - 199 mg/dL [facility] Comment: Supplemental ranges: <140 mg/dL before meals <180 mg/dL all other times of the day Blood 05/10/2022 2:46 PM EDT 05/10/2022 2:46 PM EDT Radha Omalley MD POINT OF CARE TEST O RDERABLES [facility] [place] [address] documented in this encounter Visit Diagnoses Diagnosis [...] Given 05/10/2022 1:26 PM EDT 1,000 mg documented in this encounter Active and [...] EVERY 5 MIN PRN, Starting on Cassandra 10 at 1231, Until Cassandra 05/10/22 at 1905, [...] on Cassandra 05/10/22 at 1231, Until Cassandra 10 at 1905, Sleep, or prior to injection of local anesthetic, Hold for delirium/agitation. (Maximum dose 5 mg)., Intra-Operative (Intra-Procedure), Routine 1318 (Given - Provid er: Genesis Brown RN) documented in this encounter Care Teams Media Relations Coordinator Relationship Specialty Start Date End Date Genie Abdullahi MD [address] [place] [address] PCP - General 02/23/11 documented as of this encounter
--- OUTSIDE RECORDS SUMMARY | 2024-07-17 08:25 | XMS_ITS | Encounter Summary ---
[place] [address] Care Team Providers Care Ferry Captain Name Role Phone Genie Abdullahi MD Primary Care Provider [phone] Reason for Visit * Reason Onset Date Comments Other 09/02/2013 Left L5-S1 micro diskectomy 08/24/[address] Phan. Encounter Details Date Type Department Care Team (Late st Contact Info) Description 09/02/2013 Telephone [place] [id number] Tequila Lauren RN Other (Left L5-S1 microdiskectomy 08/24/[address] Phan.) Social History Tobacco Use Types Packs/Day Years [...] encounter Miscellaneous Notes * Telephone Encounter - Tequila Lauren RN - 09/02/2013 11:00 AM EST Surgery: Left L5-S1 microdiskectomy 08/24/[address] Phan. Next visit: 10/07/[address] Phan. Patient called to report that her incision is sore, red, puffy and there is a lump. She denies any drainage or fevers. She also reported a rash below her bra down her back including the area of the incision. She denies any new medications. She is no longer taking the Oxycodone. Her regular medications are Celebrex, Lisinopril, Gabapentin, diabetic medications and an occasional Ibuprofen or Tylenol. She reports, I am very sensitive to tapes and had red larsen where the little pads were. I took aBenadryl last night and the itching is less today so far. I can't take one now it will make me too drowsy. I offered for her to come in to have the incision and rash evaluated. She was reluctant due to the distance. I offered to contact her PCP to see if she would be willing to see Ms. Casanova to check theincision and rash for us. She agreed with this plan and stated, It would be fine if another provider there could see her. I left a message on Dr. Genie Abdullahi' nurses line requesting a call back to see if they would be willing to evaluate patient's status (incision/rash) for us. I spoke with Dr. Abdullahi. She cannot see Ms. Casanova, but another could. She will have someone call tomake an appointment. I called and advised Ms. Casanova of the above conversation with Dr. Abdullahi. documented in this encounter Plan of Treatment Upcoming Encounters Date Type Department Care Team (Latest Contact Info) Description 08/25/2024 8:10 AM EST Hospital Encounter Outpatient [place] [address] Mravin Ash MD [facility] DR [place] [address] 08/25/2024 8:10 AM EST - 08/25/2024 9:30 AM EST Surgery Outpatient [place] [address] Marvin Ash MD [facility] [place] [address] NEUROPLASTY &/OR TRANSPOSITION, ULNAR NERVE AT ELBOW (WRVU 7.26) 08/25/2024 9:40 AM EST Office Visit Dermatology at [address] [place] [address] Gary Combs MD [facility] [address] [place] [address] 09/10/2024 10:30 AM EST Office [place] [address] Tess Florez PA [facility] [place] [address] Scheduled Procedures Name Priority Associated Diagnoses Date/Ti [...] on filedocumented in this encounter Care Teams Ferry Captain Relationship Specialty Start Date End Date Genie Abdullahi MD [address] [place] [address] PCP - General 02/23/11 documented as of this encounter
--- OUTSIDE RECORDS SUMMARY | 2024-07-17 08:25 | XMS_ITS | Encounter Summary ---
Author Organization [facility] [place] [address] Care Team Providers Care Slasher Hand Name Role Phone Genie Abdullahi MD Primary Care Provider [phone] Reason for Visit * Reason Comments Left Leg Pain leg and foot has num bness Encounter Details Date Type Department Care Team (Late st Contact Info) Description 08/19/2013 1:20 PM EST Office [place] [address] Sal Phan MD [facility] [place] [address] Lumbar herniated disc (Primary Dx) Discharge Disposition: Home Social History Tobacco Use [...] Sign Reading Time Taken Comments Blood Pressure 120/80 08/19/2013 1:40 PM EST Pulse - - Temperature - - Respiratory Rate - - Oxygen Saturation - - Inhaled Oxygen Concentration - - Weight 70.3 kg (155 lb) 08/19/2013 1:40 PM EST Height 170.2 cm (5' 7) 08/19/2013 1:40 PM EST Body Mass Index 24.28 08/19/2013 1:40 PM EST documented in this encounter Patient Instructions * Patient Instructions* Belkys Floyd LPN - 08/19/2013 1:45 PM EST I would like you to sign up for myD-H, which will give you secure online access to your electronic medical record at [facility] and the ability to communicate with your health care team whenand where it???s most convenient for you. With myD-H you will be able to: - look at parts of your medical record including test results and office notes - send and receive messages to/from me and your other providers - renew prescriptions - schedule appointments. To sign up, go to [email or web address] and click I have an activation code and follow the instructions. Here is your activation code: [email or web address] Expires: 10/03/2013 1:45 PM Remember, myD-H is NOT for urgent needs! Always dial 911 for medical emergencies. documented in this encounter Progress Notes * Sal Phan MD - 08/19/2013 2:13 PM EST I have just seen Ms. Casanova in the [facility] clinic at the request of Genie Abdullahi. Ms. Casanova is a 47-year-old female with an approximate one month history of left lower extremity pain. The patient has a history of low back pain but this new pain has increased in intensity and different than her typical pains. She has tried one steroid injection, oral steroids and narcotics and is currently on gabapentin. She still finds it very difficult to attend to activities of daily living, even to the point that she has difficulty walking and sitting. She has pain in the typical S1 dermatomal pattern down the posterior lateral thigh and calf. Her MRI demonstrates a herniated disk at L5-S1, asymmetric to the left side with clear deviation of the S1 nerve root. I have gone over the situation with her and told her, while there were no absolutes as far as requiring surgery, certainly she would be a candidate given that she has tried conservative therapy and this does seem to be very bothersome for her. To that end, she would like to proceed with surgery and we will try to get her in within the next week. She understands risks, benefits and alternatives as outlined to her and would like to proceed with a microdiskectomy at L5-S1 on the left. She has had previous surgeries with no bleeding sequela. She notes no shortness of breath or chest pains. She will be planned for a same-day discharge. documented in this encounter Plan of Treatment Upcoming Encounters Date Type Department Care Team (Latest Contact Info) Description 08/25/2024 8:10 AM EST Hospital Encounter [place]patient [place] [phone] Marvin Ash MD [facility] [place] [address] 08/25/2024 8:10 AM EST - 08/25/2024 9:30 AM EST Surgery [place] [phone] Marvin Ash MD [facility] [place] [address] NEUROPLASTY &/OR TRANSPOSITION, ULNAR NERVE AT ELBOW (WRVU 7.26) 08/25/2024 9:40 AM EST Office Visit Dermatology at [facility] [address] [place] [address] Gary Combs MD [facility] DR [address] [place] [address] 09/10/2024 10:30 AM EST Office [place] [phone] Tess Florez PA [facility] [place] [address] Scheduled Procedures Name Priority Associated Diagnoses Date/Ti me NEUROPLASTY &/OR TRANSPOSITION, ULNAR NERVE AT ELBOW (WRVU 7.26) Carpal tunnel syndrome on right Cubital tunnel syndrome on right 08/25/2024 8:10 AM EST ENDOSCOPY WRIST W/ RELEASE TRANSVERSE CARPAL LIGAMENT (WRVU 6.39) Carpal tunnel syndrome on right Cubital tunnel syndrome on right 08/25/2024 8:10 AM EST documented as of this encounter Visit Diagnoses Diagnosis Lumbar herniated disc- Primary Displacement of lumbar intervertebral disc without myelopathy Carpal tunnel syndrome on right Carpal tunnel syndrome Cubital tunnel syndrome on right Lesion of ulnar nerve documented in this encounter Care Teams Slasher Hand Relationship Specialty Start Date End Date Genie Abdullahi MD [address] [facility] [address] [place] [address] PCP - General 02/23/11 documented as of this encounter
--- OUTSIDE RECORDS SUMMARY | 2024-07-17 08:25 | XMS_ITS | Encounter Summary ---
Author Organization [facility] [place] [address] Care Team Providers Care Product Safety Associate Name Role Phone Genie Abdullahi MD Primary Care Provider [phone] Reason for Visit * Reason Comments Diabetes Encounter Details Date Type Department Care Team (Late st Contact Info) Description 03/21/2011 9:30 AM EDT Office [place] [address] Michelle Ramirez, [facility] [place] [address] Diabetes mellitus type 1.5, managed as type 2 (Primary Dx) Social History Tobacco Use Types Packs/Day Years Used Date Smoking Tobacco: Never Alcohol Use Standard Drinks/Week Comments Not Asked 0 (1 standard drink = 0.6 oz pur e alcohol) once a year wine coolers Sex and Gender Information Value Date Recorded Sex Assigned at Not on file Gender Identity Not on file Sexual Orientation Not on file documented as of this encounter Progress Notes * Dipak Hoyos MD - 03/21/2011 6:19 PM EDT I saw this patient with Dr Ramirez . I reviewed the huitron portions of the history and physical exam, and reviewed pertinent lab data. I answered all patient questions. I was involved in all medical decision making and agree with this plan. The history and data are most suggestive of postprandial elevated glucose ., possibly due to eatingto many carbs or due to inadequate insulin. The quickest way to demonstrate this to the patient is the glucose sensor, although she could also be persuaded to test after meals (few patients will do this). * Michelle Ramirez - 03/21/2011 9:44 AM EDT Subjective: Patient ID: Chandrika Casanova is a 45 y.o. female. HPI HISTORY OF PRESENT ILLNESS: Ms. Casanova is a very pleasant 45yo who presents for evaluation of diabetes mellitus. She was diagnosed in 6-7 yrs ago with blood test during PMD visit for poison ton. Initially tried glipizide and metformin (gave diarrhea) up till a month ago. Had Lantus and glipizide for two years. Last A1c in February 2011 9.3% from 8.6%. Current Diabetic regimen includes: Lantus 18units once day at night Novolog before meals with 1:30 insulin to carb ratio and 1:50 correction for BS>170 --- average is 3-4 units with meals -- had been on this less than a month since the last A1c in February Follows Diabetic Diet: Yes (X), No ( ) Breakfast: special k with milk or oatmeal or eggs/toast Lunch: salad with chicken and cottage cheese; lean cuisine Dinner: meat some vegetables or salad with bread Snacks: pretzels or yougurt Eats 3 meals aday with 0-1 snacks Largest meal of the day is supper SMBG Frequency: checks 3-4x times a day Fingerstick range: Pre Breakfast: 100-130 Pre-lunch: 120-140 PreDinner: 130-150 Bedtime: don't check Post prandials: don't check Hypoglycemic events in the past 3 months: 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 Gastrointestinal: Negative for abdominal distention. Genitourinary: Negative for frequency. Neurological: Positive for headaches. Psychiatric/Behavioral: Negative for sleep disturbance. The patient is not nervous/anxious. As above with all other systems negative. PMH: Past Medical History Diagnosis Date ??? Diabetes mellitus ??? Migraine ??? Arthritis PSH: Past Surgical History Procedure Date ??? Joint replacement ??? Appendectomy ??? Tonsillectomy FH: Family History Problem Relation Age of Onset ??? Cancer Mother ??? High Blood Pressure Father ??? Cancer Sister SH: History Social History ??? Marital Status: Spouse Name: N/A Number of Children: N/A ??? Years of Education: N/A Occupational History ??? Not on file. Social History Main Topics ??? Smoking status: Never Smoker ??? Smokeless tobacco: Not on file ??? Alcohol Use: Not on file once a year wine coolers ??? Drug Use: No ??? Sexually Active: Yes -- Male partner(s) Other Topics Concern ??? Not on file Social History Narrative ??? No narrative on file Allergies: Allergies Allergen Reactions ??? Keflex (Cephalexin) Rash Meds: Medications reviewed Objective: Physical Exam Constitutional: She is oriented to person, place, and time. She appears well- developed and well-nourished. Eyes: Conjunctivae and EOM are normal. Pupils are equal, round, and reactive to light. No A -V nicking, tortuous vessels on fundoscopic exam Neck: No thyromegaly present. Cardiovascular: Normal rate, regular rhythm and normal heart sounds. Pulmonary/Chest: Effort normal. Abdominal: Soft. Musculoskeletal: Normal range of motion. Neurological: She is alert and oriented to person, place, and time. She has normal reflexes. Good sensation and proprioception b/l lower extremities and feet Skin: Skin is warm and dry. Psychiatric: She has a normal mood and affect. Her behavior is normal. Judgment and thought contentnormal. Vitals 03/21/2011 SYSTOLIC 133 DIASTOLIC 79 PULSE 76 HEIGHT 5' 7 WEIGHT 152 lb 9.6 oz BODY MASS INDEX 23.89 kg/m2 Assessment and Plan: 45 y.o. Female with DM II with A1c increasing and currently 9.3% and is on an insulin regiment withLantus and Novolog. 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 Her 2 hr post prandial blood sugars need to be checked as all her other blood sugars seem to be in the adqueat range. She may be wither consuming more than she is estimating or her insulin to carb ratio may need to be adjusted. - pt was asked to wear a glucose sensor for a week to see what blood sugar peaks we are missing - she was agreeable to this and will set this up for Set 22nd with our door core assembler. She will be called with the information. - in the meantime, she was asked to check her post- prandials 2hr post meals and if >170's then increase her insulin to carb ratio to 1:25. Will check on this with the patient after a few days. Future plan: Depending on what the above glucose sensor data shows, I will be able to identify her problem and address it accordingly. I would be okay with her A1c goal to be less than 8%. Pt was seen and plan was discussed with attending. documented in this encounter Plan of Treatment Upcoming Encounters Date Type Department Care Team (Latest Contact Info) Description 08/25/2024 8:10 AM EST Hospital Encounter Outpatient [place] [address] Marvin Ash MD [facility] [place] [address] 08/25/2024 8:10 AM EST - 08/25/2024 9:30 AM EST Surgery Outpatient [place] [address] Marvin Ash MD [facility] [place] [address] NEUROPLASTY &/OR TRANSPOSITION, ULNAR NERVE AT ELBOW (WRVU 7.26) 08/25/2024 9:40 AM EST Office Visit Dermatology at [facility] [address] [place] [address] Gary Combs MD [facility] [address] [place] [address] 09/10/2024 10:30 AM EST Office Visit Orthopaedics at [facility] [place] [address] Tess Florez PA [facility] [place] [address] Scheduled Procedures Name Priority Associated Diagnoses Date/Ti va NEUROPLASTY &/OR TRANSPOSITION, ULNAR NERVE AT ELBOW (WRVU 7.26) Carpal tunnel syndrome on right Cubital tunnel syndrome on right 08/25/2024 8:10 AM EST ENDOSCOPY WRIST W/ RELEASE TRANSVERSE CARPAL LIGAMENT (WRVU 6.39) Carpal tunnel syndrome on right Cubital tunnel syndrome on right 08/25/2024 8:10 AM EST documented as of this encounter Visit Diagnoses Diagnosis Diabetes mellitus type 1.5, managed as type 2- Primary Type II or unspecified type diabetes mellitus without mention of complication, not stated as uncontrolled Carpal tunnel syndrome on right Carpal tunnel syndrome Cubital tunnel syndrome on right Lesion of ulnar nerve documented in this encounter Care Teams Product Safety Associate Relationship Specialty Start Date End Date Genie Abdullahi MD [facility] [address] [place] [address] PCP - General 02/23/11 documented as of this encounter
--- OUTSIDE RECORDS SUMMARY | 2024-07-17 08:25 | XMS_ITS | Encounter Summary ---
[place] [address] Care Team Providers Care Packaging Sales Consultant Name Role Phone Genie Abdullahi MD Primary Care Provider [phone] Reason for Visit * Reason Comments Skin Check Encounter Details Date Type Department Care Team (Late st Contact Info) Description 08/15/2011 3:00 PM EST Office Visit Dermatology [address] [place] [address] [address] [place] [address] Ahsan Marie MD [address], [place] [address] Nevus (Primary Dx) Social History Tobacco Use Types [...] as of this encounter Progress Notes * Ahsan Marie MD - 08/15/2011 3:37 PM EST Problem: Skin check. Chandrika is a 45-year-old woman who is referred today by Keya Lobo for a general skin checkup. She has noted during a recent examination to have a particularly dark melanocytic nevus on the right lower quadrant. The patient denies any personal or family history of melanoma. Physical examination reveals a pleasant 45-year-old who has numerous small junctional melanocytic nevi of the upper shoulders and arms. She has several mildly atypical nevi that in fact do bear a resemblance to the right lower quadrant targetoid 3mm nevus, namely with a darker center and a drafting teacher outer symmetrically positioned periphery. Careful examination today of the head, neck, chest, back, hands, arms, forearms, thighs and calves is otherwise benign. There is no evidence of any malignant or premalignant lesions. Assessment & Plan: Benign melanocytic nevi, benign skin examination. a. Patient reassured. b. No treatment necessary. c. RTC p.r.n. d. Continue sun avoidance precautions. Copy: ELISEER Mckeon documented in this encounter Plan of Treatment Upcoming Encounters Date Type Department Care Team (Latest Contact Info) Description 08/25/2024 8:10 AM EST Hospital Encounter [place] [address] Marvin Ash MD [facility] [place] [address] 08/25/2024 8:10 AM EST - 08/25/2024 9:30 AM EST Surgery [place] [address] Marvin Ash MD [facility] [place] [address] NEUROPLASTY &/OR TRANSPOSITION, ULNAR NERVE AT ELBOW (WRVU 7.26) 08/25/2024 9:40 AM EST Office Visit Dermatology at [place] [address] [place] [address] Gary Combs MD [facility] [address] [place] [address] 09/10/2024 10:30 AM EST Office [place] [address] Tess Florez PA [facility] [place] [address] Scheduled Procedures Name Priority Associated Diagnoses Date/Ti me NEUROPLASTY &/OR TRANSPOSITION, ULNAR NERVE AT ELBOW (WRVU 7.26) Carpal tunnel syndrome on right Cubital tunnel syndrome on right 08/25/2024 8:10 AM EST ENDOSCOPY WRIST W/ RELEASE TRANSVERSE CARPAL LIGAMENT (WRVU 6.39) Carpal tunnel syndrome on right Cubital tunnel syndrome on right 08/25/2024 8:10 AM EST documented as of this encounter Visit Diagnoses Diagnosis Nevus- Primary Benign neoplasm of skin, site unspecified Carpal tunnel syndrome on right Carpal tunnel syndrome Cubital tunnel syndrome on right Lesion of ulnar nerve documented in this encounter Care Teams Packaging Sales Consultant Relationship Specialty Start Date End Date Genie Abdullahi MD [address] [facility] [address] [place] [address] PCP - General 02/23/11 documented as of this encounter
--- OUTSIDE RECORDS SUMMARY | 2024-07-17 08:25 | XMS_ITS | Encounter Summary ---
[place] [address] Care Team Providers Care University Lecturer Name Role Phone Genie Abdullahi MD Primary Care Provider [phone] Reason for Visit * Reason Comments Neck Pain Low Back Pain Encounter Details Date Type Department Care Team (Late st Contact Info) Description 05/11/2013 4:00 PM EDT Office Visit [place] [address] Alie Pelayo, PT [facility] Genie Abdullahi MD [address] [place] [address] [facility] [address] [place], [place] [id number] Low back pain Discharge Disposition: Home Social History Tobacco [...] as of this encounter Progress Notes * Alie Pelayo, PT - 05/11/2013 5:40 PM EDT Sp[facility] Center Physical Therapy Note Referring provider: Ahsley Han APRN Diagnosis: neck and low back pain Date of onset: 1986 Work Status: corporate legal manager; at work Subjective: Ms. Casanova reports her low back feels a bit less stiff but there has been no significant change in the pain. The home exercise program has been going well. She reports using the [employer] while driving allowed her to sit with a great deal less discomfort. Ms. Casanova currently complains of low back pain with intermittent radiation to bilateral buttocks, right greater than left. She denies lower extremity numbness, tingling, and weakness. The pain is rated 1/10 at its least and 5/10 at its worst. Symptoms worsen when bending, sitting for prolonged periods of time, or breaking, shoveling, lifting, and turning. Symptoms ease when walking. The pain is usually at its worst in the morning and then improves as she moves about but worsens once again by evening. Ms. Casanova also complains of neck pain radiating to bilateral shoulders, left greater than right. The pain is rated 1/10 at its least and 6/10 at its worst. Symptoms worsen when turning, lying prone, and being fatigue. Symptoms ease for no particular reason. Sleep continues to be disturbed. Objective: Ms. Casanova returns today for a scheduled follow up appointment. She moves about in the exam room without difficulty and appears comfortable while seated. Sitting and standing posture is good. Active range of motion of the cervical spine is limited to 50?? flexion, 50?? extension, 70?? right rotation, 60?? left rotation, 35?? right sidebending and 30?? left sidebending. Active range of motion of the lumbar spine is limited to 95?? flexion and 30?? extension. Endrange flexion and extension worsens the pain. Repeated movement testing of the cervical spine did seem to suggest a directional preference toward extension. Repeated movement testing of the lumbar spine once again did seem to suggest a directional preference toward extension. Unfortunately, extension in standing and lyingproduces pain about the anterior and lateral aspect of the right hip. Treatment Received: Discussed the natural history of chronic neck and low back pain and the rational for exercise based treatment. Patient Education/ Home Exercise Program: Reviewed and modified Ms. Casanova 's home exercise program. The home exercise program now includes cervical self SNAG into extension and lying prone in extension 5 times per day. Assessment: Ms. Casanova is independent with her home exercise program. Goals: 1. Independent with home exercise program 2. Able to sit without discomfort 3. Able to bend without discomfort Plan: Follow up as needed only per Ms. Casanova's request. She was encouraged to call with any questions or concerns regarding todays visit or the home exercise program. Length of visit: A total of 25 minutes was spent re-assessing, treating, and instructing Chandrika Casanova in a home exercise program. documented in this encounter Plan of Treatment Upcoming Encounters Date Type Department Care Team (Latest Contact Info) Description 08/25/2024 8:10 AM EST Hospital Encounter [place] [address] Marvin Ash MD [facility] [place] [address] 08/25/2024 8:10 AM EST - 08/25/2024 9:30 AM EST Surgery Outpatient [place] [phone] Marvin Ash MD [facility] [place] [address] NEUROPLASTY &/OR TRANSPOSITION, ULNAR NERVE AT ELBOW (WRVU 7.26) 08/25/2024 9:40 AM EST Office Visit Dermatology at [address] [address] Gary Combs MD [facility] [place] [address] 09/10/2024 10:30 AM EST Office Visit [place] [phone] Tess Florez PA [facility] [place] [address] Scheduled Procedures Name Priority Associated Diagnoses Date/Ti me NEUROPLASTY &/OR TRANSPOSITION, ULNAR NERVE AT ELBOW (WRVU 7.26) Carpal tunnel syndrome on right Cubital tunnel syndrome on right 08/25/2024 8:10 AM EST ENDOSCOPY WRIST W/ RELEASE TRANSVERSE CARPAL LIGAMENT (WRVU 6.39) Carpal tunnel syndrome on right Cubital tunnel syndrome on right 08/25/2024 8:10 AM EST documented as of this encounter Visit Diagnoses Diagnosis Low back pain Lumbago Carpal tunnel syndrome on right Carpal tunnel syndrome Cubital tunnel syndrome on right Lesion of ulnar nerve documented in this encounter Care Teams University Lecturer Relationship Specialty Start Date End Date Genie Abdullahi MD [facility] [address] [facility] [address] [place] [address] PCP - General 02/23/11 documented as of this encounter
--- OUTSIDE RECORDS SUMMARY | 2024-07-17 08:25 | XMS_ITS | Encounter Summary ---
Author Organization [facility] [place] [address] Care Team Providers Care Senior Program Analyst Name Role Phone Genie Abdullahi MD Primary Care Provider [phone] Encounter Details Date Type Department Care Team (Late st Contact Info) Description 12/10/2017 Ancillary Procedure Radiology Library at [facility] [place] [phone] Genie Abdullahi MD [facility] [address] [facility] 1 [place], [place] [address] Social History Tobacco Use Types Packs/Day Years [...] AM EST Hospital Encounter Outpatient [place] [phone] [facility] [place] [address] 08/25/2024 8:10 AM EST - 08/25/2024 9:30 AM EST Surgery [place]patient [place] [address] [facility] [place] [address] NEUROPLASTY &/OR TRANSPOSITION, ULNAR NERVE AT ELBOW (WRVU 7.26) 08/25/2024 9:40 AM EST Office Visit Dermatology at [facility] [address] [place] [address] [facility] [place] [address] 09/10/2024 10:30 AM EST Office [place] [phone] [facility] [place] [address] Scheduled Procedures Name Priority Associated Diagnoses Date/Ti [...] FILM LIBRARY STORAGE ONLY DX ANKLE Routine 12/10/2017 12:00 AM EDT documented in this encounter Results * Film Library- Storage Only DX Ankle (12/10/2017 12:00 AM EDT) Narrative [facility] - 07/25/2021 11:46 AM EST This exam is auto-finalizing. It's purpose is for storage only. Genie Abdullahi MD IMG FILM LIBRARY ORD ERABLES [place], [place] documented in this encounter Visit Diagnoses Not on filedocumented in this encounter Care Teams Senior Program Analyst Relationship Specialty Start Date End Date Genie Abdullahi MD [facility] [address] [facility] [address] [place] [address] PCP - General 02/23/11 documented as of this encounter
--- OUTSIDE RECORDS SUMMARY | 2024-07-17 08:25 | XMS_ITS | Encounter Summary ---
Author Organization [facility] [place] [address] Care Team Providers Care Trust Manager Assistant Name Role Phone Genie Abdullahi MD Primary Care Provider [phone] Encounter Details Date Type Department Care Team (Late Contact Info) Description 08/19/2013 External Results XRay at [address] [place] [phone] Provider, Scanning Social History Tobacco Use Types Packs/Day Years [...] AM EST Hospital Encounter Outpatient [place] [address] Marvin Ash MD [facility] [place] [address] 08/25/2024 8:10 AM EST - 08/25/2024 9:30 AM EST Surgery Outpatient [place] [address] Marvin Ash MD [facility] [place] [address] NEUROPLASTY &/OR TRANSPOSITION, ULNAR NERVE AT ELBOW (WRVU 7.26) 08/25/2024 9:40 AM EST Office Visit Dermatology at [facility] [address] [place] [address] Gary Combs MD [facility] [address] [place] [address] 09/10/2024 10:30 AM EST Office Visit [place] [address] Tess Florez PA [facility] [place] [address] Scheduled Procedures Name Priority Associated Diagnoses Date/Ti [...] Procedure Name Priority Date/Time Associated Diagnosis Comments MRI/MRA SCAN Routine 07/23/2013 documented in this encounter Results * Scan Doc: MRI/MRA (07/23/2013) Anatomical Region Laterality Modality Other Scanning Provider MEDIA MGR SCAN EXT O RDR/RSLT documented in this encounter Visit Diagnoses Not on filedocumented in this encounter Care Teams Trust Manager Assistant Relationship Specialty Start Date End Date Genie Abdullahi MD [facility] [address] [place] [address] [place] [address] PCP - General 02/23/11 documented as of this encounter
--- OUTSIDE RECORDS SUMMARY | 2024-07-17 08:25 | XMS_ITS | Encounter Summary ---
Author Organization [facility] [place] [address] Care Team Providers Care Cigar Making Supervisor Name Role Phone Genie Abdullahi MD Primary Care Provider [phone] Reason for Visit * Reason Comments Diabetes Encounter Details Date Type Department Care Team (Late st Contact Info) Description 06/06/2011 9:00 AM EDT Office Visit Endocr[place]ology [place] [address] Michelle Ramirez, [facility] [place] [address] Diabetes mellitus (Primary Dx) Discharge Disposition: Home Social History [...] Sign Reading Time Taken Comments Blood Pressure 147/84 06/06/2011 8:55 AM EDT Pulse 76 06/06/2011 8:55 AM EDT Temperature - - Respiratory Rate - - Oxygen Saturation - - Inhaled Oxygen Concentration - - Weight 68.9 kg (152 lb) 06/06/2011 8:55 AM EDT Height 170.2 cm (5' 7) 06/06/2011 8:55 AM EDT Body Mass Index 23.81 06/06/2011 8:55 AM EDT documented in this encounter Progress Notes * Michelle Ramirez - 12/14/2011 11:15 AM EDT Subjective: Patient ID: Chandrika Casanova is a 46 y.o. female. HPI Review of Systems Objective: Physical Exam Assessment and Plan: Pt's labs were received regarding her GAD65 Antibody being elevated at 1.99 and c-peptide present at 0.9. This most likely goes along with ASYA which means that she will most likely need to stay on insulinin the half-way of things. But she does have some synthetic function of her own pancrease that shemay benefit from adding metformin 1000 mg twice daily (500 mg po twice daily for a week to start with) to her regiment. She should continue to work on her diet an d exercise regiment. * Zofia Parsons MD - 06/08/2011 3:59 PM EDT I saw this patient with Dr. Ramirez. I reviewed the huitron portions of the history and physical exam, and reviewed pertinent lab data. I answered all patient questions. I was involved in all medical decision making and agree with this plan. * Michelle Ramirez - 06/06/2011 4:20 PM EDT Subjective: Patient ID: Chandrika Casanova is a 45 y.o. female here for f/u of her DM II HPI She has been doing well with carb counting and noticed significant improvement in her blood sugars.She has seen a local assembler body locally and had a sensor study that showed that most of her issues are with the food she eats. Sometimes she skips carb completely and was told that was not rodriguez to do. She has started taking insulin for meals as well. Current regiment: Lantus cut down to18 units at night Novolog with meals 1:15 ratio with a correction scale of 50 for blood sugars >150 Blood sugars: Fasting: low 100 Pre-meals: low to mid 100s Post prandial: high 100's on an average Last A1c in February 2011 9.3% from 8.6%. LDL at goal and BP usually below >130/80 and normal microalbumin in the past No diabetic complications and f/u with optho and occasional foot checks. No hypoglycemic episodes. Review of Systems Feels well with no complaints and all other systems negative. Objective: Physical Exam Constitutional: She is oriented to person, place, and time. She appears well- developed and well-nourished. HENT: Head: Normocephalic and atraumatic. Mouth/Throat: Oropharynx is clear and moist. Eyes: Conjunctivae and EOM are normal. Neck: Normal range of motion. No thyromegaly present. Cardiovascular: Normal rate. Pulmonary/Chest: Effort normal. Abdominal: Soft. Bowel sounds are normal. Musculoskeletal: Normal range of motion. She exhibits no edema and no tenderness. Lymphadenopathy: She has no cervical adenopathy. Neurological: She is alert and oriented to person, place, and time. She has normal reflexes. No cranial nerve deficit. Good sensation to light touch and pin prick Skin: Skin is warm and dry. No rash noted. No erythema. No pallor. Psychiatric: She has a normal mood and affect. Her behavior is normal. Judgment and thought contentnormal. BP 147/84 Pulse 76 Ht 170.2 cm (5' 7) Wt 68.947 kg (152 lb) BMI 23.81 kg/m2 Assessment and Plan: 45 y.o. Female [...] have Latent Autoimmune Diabetes of Adulthood (ASYA). She is currently doing well and has improved in terms of eating and blood glucose control. I would continue the same regiment as she is on now. Her goal A1c should be <8% and she can decrease her lantus by 2 units every two days to keep fasting BG around 130. Her 2 hr post prandials should be around 140-180. To confirm her auto-immunity of her DM II, I would check a KYLE 65 antibody and a c-peptide to see if she has any synthetic function of her own pancreas. This is to see if she can be on any orals or new injectable medications that mimic the action of insulin. Pt will follow up for the diabetes with her PMD as the commute is closer. She is welcome to call meif she has any questions regarding her DM in the future. Plan was discussed with attending Dr. Jaqueline Ramirez DO Fellow in Endocrinology [facility] Dept of Endocrinology Office: [phone] Pager: [phone] documented in this encounter Plan of Treatment Upcoming Encounters Date Type Department Care Team (Latest Contact Info) Description 08/25/2024 8:10 AM EST Hospital Encounter [place] [phone] Marvin Ash MD [facility] [place] [address] 08/25/2024 8:10 AM EST - 08/25/2024 9:30 AM EST Surgery [place] [phone] Marvin Ash MD [facility] [place] [address] NEUROPLASTY &/OR TRANSPOSITION, ULNAR NERVE AT ELBOW (WRVU 7.26) 08/25/2024 9:40 AM EST Office Visit Dermatology at [address] [place] [address] Gary Combs MD [facility] DR LINDA [place] [address] 09/10/2024 10:30 AM EST Office Visit [place] [address] Tess Florez, PA [facility] [place] [address] Scheduled Procedures Name Priority Associated [...] of this encounter Visit Diagnoses Diagnosis Diabetes mellitus- Primary Type II or unspecified type diabetes mellitus without mention of complication, not stated as uncontrolled Carpal tunnel syndrome on right Carpal tunnel syndrome Cubital tunnel syndrome on right Lesion of ulnar nerve documented in this encounter Care Teams Cigar Making Supervisor Relationship Specialty Start Date End Date Genie Abdullahi MD [address] [place] [address] PCP - General 02/23/11 documented as of this encounter
--- OUTSIDE RECORDS SUMMARY | 2024-07-17 08:25 | XMS_ITS | Encounter Summary ---
Author Organization [facility] [place] [address] Care Team Providers Care Soft Sugar Cutter Name Role Phone Genie Abdullahi MD Primary Care Provider [phone] Encounter Details Date Type Department Care Team (Late st Contact Info) Description 04/09/2018 Ancillary Procedure Radiology Library at [facility] [place] [address] Genie Abdullahi MD [facility] [address] MENDES [facility] 1 [place], [place] [address] Social History Tobacco Use Types Packs/Day Years [...] AM EST Hospital Encounter [place] [phone] Marvin Ash MD [facility] [place] [address] 08/25/2024 8:10 AM EST - 08/25/2024 9:30 AM EST Surgery [place] [address] Marvin Ash MD [facility] [address] NEUROPLASTY &/OR TRANSPOSITION, ULNAR NERVE AT ELBOW (WRVU 7.26) 08/25/2024 9:40 AM EST Office Visit Dermatology at [facility] [address] [place] [address] Gary Combs MD [facility] [place] [address] 09/10/2024 10:30 AM EST Office [place] [address] Tess Florez PA [facility] [place] [address] Scheduled Procedures Name Priority Associated Diagnoses Date/Ti [...] FILM LIBRARY STORAGE ONLY DX FOOT Routine 04/09/2018 12:00 AM EDT documented in this encounter Results * Film Library- Storage Only DX Foot (04/09/2018 12:00 AM EDT) Narrative [facility] - 07/25/2021 11:46 AM EST This exam is auto-finalizing. It's purpose is for storage only. Genie Abdullahi MD IMG FILM LIBRARY ORD ERABLES [place], [place] documented in this encounter Visit Diagnoses Not on filedocumented in this encounter Care Teams Soft Sugar Cutter Relationship Specialty Start Date End Date Genie Abdullahi MD [facility] [address] [facility] 1 [place] [address] PCP - General 02/23/11 documented as of this encounter
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
--- OUTSIDE RECORDS SUMMARY | 2024-07-17 08:25 | XMS_ITS | Encounter Summary ---
Author Organization [facility], Located Within [facility] [place] [address] Care Team Providers Care Shaper Hand Name Role Phone Genie Abdullahi MD Primary Care Provider [phone] Reason for Visit * Reason Onset Date Comments Medication Refill 05/16/2011 Encounter Details Date Type Department Care Team (Late st Contact Info) Description 05/16/2011 Refill [place] [phone] Cindy Ford APRN [facility] [place] [address] Social History Tobacco Use Types Packs/Day Years [...] AM EST Hospital Encounter Outpatient [place] [phone] Marvin Ash MD [facility] [place] [address] 08/25/2024 8:10 AM EST - 08/25/2024 9:30 AM EST Surgery [facility]patient [place] [address] Marvin Ash MD [facility] [place] [address] NEUROPLASTY &/OR TRANSPOSITION, ULNAR NERVE AT ELBOW (WRVU 7.26) 08/25/2024 9:40 AM EST Office Visit Dermatology at [facility] [address] [place] [address] Gary Combs MD [facility] [place] [address] 09/10/2024 10:30 AM EST Office [place] [phone] Tess Florez PA [facility] [place] [address] Scheduled Procedures Name Priority Associated Diagnoses Date/Ti [...] on filedocumented in this encounter Care Teams Shaper Hand Relationship Specialty Start Date End Date Genie Abdullahi MD [facility] [address] [place] [address] PCP - General 02/23/11 documented as of this encounter
--- OUTSIDE RECORDS SUMMARY | 2024-07-17 08:25 | XMS_ITS | Encounter Summary ---
Author Organization [facility] [place] [address] Care Team Providers Care Community Health Consultant Name Role Phone Genie Abdullahi MD Primary Care Provider [phone] Encounter Details Date Type Department Care Team (Late st Contact Info) Description 07/23/2013 Orders [place] [phone] Sal Phan MD [facility] [place] [address] Social History Tobacco Use Types Packs/Day Years [...] AM EST Hospital Encounter Outpatient [place] [phone] Marvin Ash MD [facility] [place] [address] 08/25/2024 8:10 AM EST - 08/25/2024 9:30 AM EST Surgery Outpatient [place] [address] Marvin Ash MD [facility] DR [place] [address] NEUROPLASTY &/OR TRANSPOSITION, ULNAR NERVE AT ELBOW (WRVU 7.26) 08/25/2024 9:40 AM EST Office Visit Dermatology at [facility] [address] [place] [address] Gary Combs MD [facility] [place] [address] 09/10/2024 10:30 AM EST Office Visit [place] [phone] Tess Florez PA [facility] [place] [address] Pending Results Name Type Priority Associated Diagnoses Date /Time Film Library- Storage only MR Spine Imaging Routine 07/23/2013 10:31 AM EST Scheduled Procedures Name Priority Associated Diagnoses Date/Ti az NEUROPLASTY &/OR TRANSPOSITION, ULNAR NERVE AT ELBOW (WRVU 7.26) Carpal tunnel syndrome on right Cubital tunnel syndrome on right 08/25/2024 8:10 AM EST ENDOSCOPY WRIST W/ RELEASE TRANSVERSE CARPAL LIGAMENT (WRVU 6.39) Carpal tunnel syndrome on right Cubital tunnel syndrome on right 08/25/2024 8:10 AM EST documented as of this encounter Visit Diagnoses Not on filedocumented in this encounter Care Teams Community Health Consultant Relationship Specialty Start Date End Date Genie Abdullahi MD [facility] [address] [place] [address] PCP - General 02/23/11 documented as of this encounter
--- OUTSIDE RECORDS SUMMARY | 2024-07-17 08:25 | XMS_ITS | Encounter Summary ---
Author Organization [facility] [place] [address] Care Team Providers Care Retort Pre Cooker Name Role Phone Genie Abdullahi MD Primary Care Provider [phone] Encounter Details Date Type Department Care Team (Late st Contact Info) Description 08/24/2013 7:22 AM EST Anesthesia Event [place] [address] Ronal Jewell MD [facility] [place] [address] Anesthesia Record Procedure Summary Procedure Name Responsible Anesthesiologist Anesthesia Start Time Anesthesia Stop Time LAMINOTOMY, DECOMPRESSION, FORAMINOTOMY, LUMBAR (WRVU 12) (Spine Lumbar) Ronal Jewell MD 08/24/13 0722 08/24/13 0847 Events Date Time Event Comment 08/24/2013 0706 0722 Start 0724 AN Verify 0724 An Start Data 0727 An Induction 0730 An Intubation 0732 Anesthesia Ready 0840 Extubation/LMA Out 0840 an stop data 0847 Stop Meds Name Total fentaNYL 100 mcg lidocaine IV 20 mg propofol 200 mg Rocuronium 30 mg PHENYLephrine 480 mcg ePHEDrine 10 mg Dexamethasone 8 mg Neostigmine 5 mg Glycopyrrolate 2.2 mg Midazolam 2 mg vancomycin 1 g lactated ringers 800 mL * Agents Name O2 Air N2O Sevoflurane (et) * Blood No blood administrations on file. Lines, Drains, and Airways Type Details Placement Removal (RETIRED) Peripheral IV Line - Single Lumen 08/24/13; 0627; 08/24/13; 1134 08/24/13 0627 by Marium Garcia RN 08/24/13 1134 by Shilpa Merlos RN (RETIRED) Non-Surgical Airway Mask Ventilation: Adjunct (2); ETT Type: Cuffed, Oral; ETT Size: 7 mm; Oral Airway: 90 mm (4); Removal Date: 08/24/13; Removal Time: 0808/24/13 0741 by 08/24/13 0840 by Amilcar Nelson MD Incision 08/24/13; 0752; back; 04/02/22 (LDA cleanup utility RA#[id number]); 171 (LDA cleanup utility RA#[id number]) 08/24/13 0752 by Shilpa Jones RN 04/02/22 1715 by Andrea Lyons documented in this encounter Social History Tobacco [...] OR Notes * Anesthesia Postprocedure Evaluation - Amilcar Nelson - 08/24/2013 1:32 PM EST Patient: Chandrika Casanova Procedure(s) Performed: Procedure(s): LAMINOTOMY, DECOMPRESSION, FORAMINOTOMY, LUMBAR MODIFIER METRX SYS. MICROSCOPE USE Actual Anesthetic: No value filed. Patient location: Same Day Post-op pain: Adequate analgesia Post-op nausea: no nausea or vomiting Last Vitals: Filed Vitals: 08/24/13 1034 BP: 119/73 Pulse: 69 Temp: Resp: 16 Post-op cardiovascular and respiratory status: is stable Level of consciousness: awake, alert and oriented Complications: no apparent complications and tolerated the procedure well Fluid Status: normal * Anesthesia Preprocedure Evaluation - Ronal Jewell - 08/22/2013 9:59 AM EST Pre-Anesthesia Evaluation for: Chandrika Casanova a 47 y.o. female. Procedure(s): LAMINOTOMY, DECOMPRESSION, FORAMINOTOMY, LUMBAR MODIFIER METRX SYS. Patient Active Problem List Diagnosis ??? Lumbar herniated disc ??? Low back pain ??? Nevus ??? Diabetes mellitus type 1.5, managed as type 2 Past Medical History Diagnosis Date ??? Diabetes mellitus ??? Migraine ??? Arthritis ??? Back pain 04/09/2013 Past Surgical History Procedure Date ??? Joint replacement ??? Appendectomy ??? Tonsillectomy History Substance Use Topics ??? Smoking status: Never Smoker ??? Smokeless tobacco: Never Used ??? Alcohol Use: Not on file Comment: once a year wine coolers History Drug Use No Allergies Allergen Reactions ??? Adhesive Tape Rash ??? Bactrim (Sulfamethoxazole-Trimethoprim) Rash ??? Keflex (Cephalexin) Rash Medications: MAR and/or home medications have been reviewed. Physical Exam: There were no vitals filed for this visit. There is no height or weight on file to calculate BMI. Airway Assessment: Mallampati: II Cardiovascular Assessment: cardiovascular exam normal Pulmonary Assessment: pulmonary exam normal Dental Assessment: - normal exam Misc Assessment: IV access: Peripheral line Anesthesia Plan: ASA 3 general, with a(n) intravenous induction Patient is a 47 yo female presenting for laminotomy, decompression, and foraminotomy of L5-S1. She has a PMHx significant for migraines, IDDM, HLD, GERD, and htn. She has had surgery in the past, butno airway records in our system. No recent labs. Plan for GA w/ ETT, prone. Region - Other Informed Consent: Anesthetic plan and risks discussed with patient and spouse. Use of blood products discussed with patient and spouse whom consented to blood products. Plan discussed with attending. Misc. Assessment: documented in this encounter Plan of Treatment Upcoming Encounters Date Type Department Care Team (Latest Contact Info) Description 08/25/2024 8:10 AM EST Hospital Encounter [place] [phone] Marvin Ash MD [facility] [place] [address] 08/25/2024 8:10 AM EST - 08/25/2024 9:30 AM EST Surgery [place] [address] Marvin Ash MD [facility] [place] [address] NEUROPLASTY &/OR TRANSPOSITION, ULNAR NERVE AT ELBOW (WRVU 7.26) 08/25/2024 9:40 AM EST Office Visit Dermatology at [place] [address] [place] [address] Gary Combs MD [facility] [place] [address] 09/10/2024 10:30 AM EST Office [place] [address]1000 Tess Florez PA [facility] [place] [address] Scheduled Procedures Name Priority Associated Diagnoses Date/Ti [...] MAR Action Action Date Dose Rate Site dexamethasone (DECADRON) injection PRN, Starting on Sat08/24/13 at 0739, Until Sat08/24/13 at 1337, Anesthesia Intra-op, Routine Given 08/24/2013 7:39 AM EST 8 mg ePHEDrine Sulfate in sodium chloride 0.9% (PF) 50 mg/10 mL (5 mg/mL) injection Syrg PRN, Starting on Sat08/24/13 at 0817, Until Sat08/24/13 at 1337, Anesthesia Intra-op Given 08/24/2013 8:17 AM EST 10 mg fentaNYL 50mcg/mL injection PRN, Starting on Sat08/24/13 at 0725, Until Sat08/24/13 at 1337, Pain, Anesthesia Intra-op, Routine Given 08/24/2013 7:27 AM EST 50 mcg Given 08/24/2013 7:25 AM EST 50 mcg glycopyrrolate (ROBINUL) injection PRN, Starting on Sat08/24/13 at 0827, Until Sat08/24/13 at 1337, Anesthesia Intra-op, Routine Given 08/24/2013 8:31 AM EST 2 mg Given 08/24/2013 8:27 AM EST 0.2 mg lactated ringers infusion CONTINUOUS PRN, Starting on Sat08/24/13 at 0722, Until Sat08/24/13 at 1337, Anesthesia Intra-op New Bag 08/24/2013 7:22 AM EST mL lidocaine (PF) (XYLOCAINE) 100 mg/5 mL (2 %) injection PRN, Starting on Sat08/24/13 at 0726, Until Sat08/24/13 at 1337, Anesthesia Intra-op, Routine Given 08/24/2013 7:26 AM EST 20 mg midazolam (PF) (VERSED) 1 mg/mL injection PRN, Starting on Sat08/24/13 at 0722, Until Sat08/24/13 at 1337, Sleep, Anesthesia Intra-op, Routine Given 08/24/2013 7:22 AM EST 2 mg neostigmine (PROSTIGMINE) injection PRN, Starting on Sat08/24/13 at 0827, Until Sat08/24/13 at 1337, Anesthesia Intra-op, Routine Given 08/24/2013 8:31 AM EST 2 mg Given 08/24/2013 8:28 AM EST 1 mg Given 08/24/2013 8:27 AM EST 2 mg PHENYLephrine HCl in NS (PF) (MARY-SYNEPHRINE) 0.8 mg/10 mL (80 mcg/mL) injection Syrg PRN, Starting on Sat08/24/13 at 0744, Until Sat08/24/13 at 1337, Anesthesia Intra-op, Routine Given 08/24/2013 8:09 AM EST 80 mcg Given 08/24/2013 8:04 AM EST 80 mcg Given 08/24/2013 7:52 AM EST 80 mcg propofol (DIPRIVAN) 10 mg/mL bolus injection (Anesthesia) PRN, Starting on Sat08/24/13 at 0727, Until Sat08/24/13 at 1337, Anesthesia Intra-op Given 08/24/2013 7:27 AM EST 200 mg rocuronium (ZEMURON) injection PRN, Starting on Sat08/24/13 at 0727, Until Sat08/24/13 at 1337, Anesthesia Intra-op, Routine Given 08/24/2013 7:27 AM EST 30 mg vancomycin (VANCOCIN) injection PRN, Starting on Sat08/24/13 at 0722, Until Sat08/24/13 at 1337, Anesthesia Intra-op, Routine Given 08/24/2013 7:22 AM EST 1 g documented in this encounter Care Teams Retort Pre Cooker Relationship Specialty Start Date End Date Genie Abdullahi MD [facility] [address] [place] [address] PCP - General 02/23/11 documented as of this encounter
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
--- OUTSIDE RECORDS SUMMARY | 2024-07-17 08:25 | XMS_ITS | Encounter Summary ---
Author Organization [facility] [place] [address] Care Team Providers Care Histopathologist Name Role Phone Genie Abdullahi MD Primary Care Provider Encounter Details Date Type Department Care Team (Late st Contact Info) Description 08/24/2013 7:30 AM EST - 08/24/2013 9:51 AM EST Surgery [place] [address] Antwon Phan MD [facility] [place] [address] LAMINOTOMY, DECOMPRESSION, FORAMINOTOMY, LUMBAR (WRVU 12) Social History Tobacco Use Types Packs/Day Years [...] Sign Reading Time Taken Comments Blood Pressure 119/73 08/24/2013 10:34 AM EST Pulse 69 08/24/2013 10:34 AM EST Temperature 36.4 ??C (97.5 ??F) 08/24/2013 8:47 AM ES T Respiratory Rate 16 08/24/2013 10:34 AM EST Oxygen Saturation 97% 08/24/2013 10:34 AM EST Inhaled Oxygen Concentration - - Weight - - Height 170.2 cm (5' 7) 08/24/2013 6:07 AM EST Body Mass Index - - documented in this encounter Discharge Instructions * Discharge Instructions* Shilpa Merlos RN - 08/24/2013 9:32 AM EST Wound infection may occur at any time, but it is evident more often 4-7 days after surgery. Signs and symptoms may involve one or more of the followin. Temperature elevation of more than 2 degrees or greater than 100.5 degrees F 2. Swelling and redness in or around the incision. 3. Increasing pain or discomfort in or around the incision. 4. Red streaks in the skin near the incision. 5. Pus or other foul drainage from the incision. 6. Foul smell from the incision. 7. Generalized body chills or fever. 8. Severe pain. If you suspect an incisional infection is present, are having problems, or have additional questions or concerns, please call. POST ANESTHESIA INSTRUCTIONS Go home, rest, use caution on stairs. Change positions slowly. Do not smoke if you are alone. Diet light to regular as tolerated today. If nausea occurs start with clear liquids and progress slowly. No driving, operating machinery, alcoholic beverages and no important decisions for 24 hours. Monitor IV site for signs and symptoms of infection: increasing redness, swelling, foul drainage, if occurs contact M.D. Patients who have had endotrachial tubes (this tube, used by anesthesia department, is passed down your throat after you are asleep, to ensure safe air passage during your operation). A sore throat is normal due to the tube. Cold liquids or soothing lozenges will help ease the discomfort. The generalized muscle aches are due to the medication given to you just before the tube is inserted. As the medication wears off, you may develop muscle soreness, which usually goes away in 12-24 hours. * Patient Instructions* Jamaal Dockery MD - 08/24/2013 8:41 AM EST Instructions following Surgery Wound Care: Keep dressing on incision for the next 24 hours, then you may remove and leave open to air. You may shower and get incision wet after 48 hours, but do not scrub area directly. Do not soakincision(s) under water for the next 2 weeks (i.e. soaking in bath or swimming) as this may promotea wound infection. You may remove dressing if it becomes saturated/wet and replace with dry gauze as needed for seepage/comfort. ICE: You may apply ice to incision during the first 48 hours following surgery to help limit swelling, bruising, and discomfort. Your stitches will dissolve and do not need to be removed. Keep the Steri strips on the wound untilthey fall off on their own. Activity: As tolerated by your comfort level. You may return to full duty work as soon as you feel comfortable to do so. Call Doctor for: Please call if you notice worsening redness or drainage from incision(s) lasting longer than 5 days after your surgery, any foul-smelling drainage from the incision, pain not controlled by pain medications, persistent nausea and vomiting, or for any fevers greater than 101.3 F. The number for questions is below if you need to call before 5 PM weekdays and [phone] after 5PM and weekends. Pain Medication: No driving for 8 hours after any dose of opioid pain medication if one was prescribed for you. You may use ibuprofen (motrin, advil) in addition to this medication if your pain is not totally controlled by the opioid. Follow-up: Please follow-up as scheduled with Dr. Phan. Appointment will be mailed to you. Please call (clinic number for appointments) to confirm date and time of your appointment if you do not receive your apointment in 1 week. documented in this encounter Medications at Time of Discharge Medication Sig Dispensed Refills Start Date End Date lisinopril (PRINIVIL;ZESTRIL) 5 mg tablet Take 5 mg by mouth daily. omeprazole (PRILOSEC) 20 mg capsule Take 20 mg by mouth daily. CYANOCOBALAMIN, VITAMIN B-12, ORAL Take 2,000 mcg by mouth daily. calcium-vitamin D3 600 mg-5 mcg (200 unit) Tablet Take by mouth 2 times daily. OXYcodone (ROXICODONE) 5 mg immediate release tablet Take 1 tablet by mouth every 4 hours as needed for Pain. 40 tablet 0 08/24/2013 10/07/2013 GABAPENTIN ORAL Take by mouth daily. 12/2013 acetaminophen (TYLENOL EXTRA STRENGTH) 500 mg tablet Take 1,000 mg by mouth 3 times daily. 10/07/2013 ibuprofen (ADVIL;MOTRIN) 400 mg tablet Take 400 [...] by mouth every 6 hours as needed. 05/02/2022 documented as of this encounter Progress Notes * Shilpa Merlos RN - 08/24/2013 9:20 AM EST 0910-Patient resting, states she doesn't want any pain medication right now that her pain level is tolerable. Will continue to monitor, see flow sheet for specifics. 1130-Discharge instructions gone over with patient, she states that she understands and will call with any questions or concerns. Voided in bathroom on own, tolerated well. Patient states she is ready for discharge. IV out per [facility] Policy. documented in this encounter H&P Notes * Zoila Rajan MD - 08/24/2013 6:25 AM EST No change from prior Heart: normal S1 and S2. No M/R/G Lungs: ctab anteriorly documented in this encounter Miscellaneous Notes * Miscellaneous - Provider, Scanning - 08/24/2013 10:42 AM EST * Op Note - Antwon Phan MD - 08/24/2013 8:32 AM EST Operative Note on Chandrika Casanova Date: 08/24/2013 Pre and Postop Diagnosis: Left L5-S1 herniated disk. Procedure: Left L5-S1 microdiskectomy. Surgeons: Sylvester Rajan Attending: Sylvester Anesthesia: General endotracheal. Estimated Blood Loss: Minimal. Complications: None. Brief History: The patient is a 47-year-old female with a history of left lower extremity pain that was not responsive to conservative treatment. The patient was offered surgical decompression and agreed to proceed. Operative Report: The patient was intubated and placed on the operating table in a prone position on the Quinten frame. The back was prepped and draped in the usual sterile fashion. A paramedian incision over the L5-S1 interspace was made on the left side, as verified with C-arm. Dilating tubes were docked against the inferior aspect of the L5 lamina and a final 6 cm x 22 mm tube was positioned and a C-arm picture was taken to confirm this at the appropriate level. Next, the internal dilators were removed and the microscope was brought into the operating field. Investing tissue along the lamina was removed with Bovie electrocautery. Laminotomy was performed with #3 and #4 Kerrison rongeurs without difficulty. The ligamentum flavum was removed in a similar manner, thus exposing the epidural space. Exploration here revealed the S1 nerve root to be deviated laterally due to the herniated disk. The herniated disk was clearly evident and after cauterizing a small vessel overlying it we were able to tease out two large fragments from the epidural space lateral to the thecal sac and medial to the S1 nerve root. After doing this, then we rolled the S1 nerve root medially and were able to identify the epidural corridor. No compressive lesions were noted. The disk space itself was explored going through the annulotomy that had been made by the herniated disk, but no additional disk material was retrieved. The area was liberally irrigated. Depo-Medrol was placed into the epidural space. The tubular retractor was removed and the wound was closed in a layered fashion. All counts were correct and the patient was transferred to the Same Day surgical area for discharge home on the same day. * OR Attestation - Antwon Phan MD - 08/24/2013 8:32 AM EST Attestation: Case Date: 08/24/2013 I was present and I participated during the entire procedure (does not need to include opening and closing). ANTWON PHAN MD 08/24/2013 documented in this encounter Plan of Treatment Upcoming Encounters Date Type Department Care Team (Latest Contact Info) Description 08/25/2024 8:10 AM EST Hospital Encounter Outpatient [place] [address] Marvin Ash MD [facility] [place] [address] 08/25/2024 8:10 AM EST - 08/25/2024 9:30 AM EST Surgery Outpatient [place] [address] Marvin Ash MD [facility] [place] [address] NEUROPLASTY &/OR TRANSPOSITION, ULNAR NERVE AT ELBOW (WRVU 7.26) 08/25/2024 9:40 AM EST Office Visit Dermatology at [facility] [address] [place] [address] Gary Combs MD [facility] DR [facility] [address] 09/10/2024 10:30 AM EST Office [place] [address] Tess Florez PA [facility] [place] [address] Pending Results Name Type Priority Associated Diagnoses Date /Time XR Fluoro OR c-arm storage only Imaging Routine 08/24/2013 8:51 AM EST Scheduled Orders Name Type Priority Associated Diagnoses Orde r Schedule XR Fluoro OR c-arm storage only Imaging Routine Once PRN (for Ra diant use) for 1 Occurrences starting 08/24/2013 until 08/24/2013 Scheduled Procedures Name Priority Associated Diagnoses Date/Ti [...] Procedure Name Priority Date/Time Associated Diagnosis Comments POCT GLUCOSE Routine 08/24/2013 8:49 AM EST MICROSCOPE USE (WRVU 3.46) 08/24/2013 7:12 AM EST LEFT L5-S1 HNP MODIFIER METRX SYS. 08/24/2013 7 :12 AM EST LEFT L5-S1 HNP LAMINOTOMY, DECOMPRESSION, FORAMINOTOMY, LUMBAR (WRVU 12) 08/24/2013 7:12 AM EST LEFT L5-S1 HNP POCT GLUCOSE Routine 08/24/2013 6:40 AM EST documented in this encounter Results * POCT Glucose (08/24/2013 8:49 AM EST) [facility] Signature Glucose, POC 128 60 - 199 mg/dL [facility] Comment: Supplemental ranges: <110 mg/dL before meals <200 mg/dL all other times of the day Blood specimen (specimen) 08/24/2013 8:49 AM EST 08/24/2013 8:49 AM EST Antwon Phan MD POINT OF CARE TEST O LIZA Performing Organization Address [facility] Co de Phone Number [facility] * POCT Glucose (08/24/2013 6:40 AM EST) [facility] Signature Glucose, POC 95 60 - 199 mg/dL [facility] Comment: Supplemental ranges: <110 mg/dL before meals <200 mg/dL all other times of the day Blood specimen (specimen) 08/24/2013 6:40 AM EST 08/24/2013 6:40 AM EST Antwon Phan MD POINT OF CARE TEST Rickey DE JESUS Performing Organization Address [facility] Co de Phone Number [facility] documented in this encounter Visit Diagnoses Not on filedocumented in this encounter Administered Medications Inactive Administered Medications - up to 3 most recent administrations Medication Order MAR Action Action Date Dose Rate Site bacitracin injection ONCE PRN, Starting on Sat08/24/13 at 0752, Until Sat08/24/13 at 1127, Intra-Operative (Intra-Procedure), Routine Given 08/24/2013 7:52 AM EST 10,000 Units Umbilical Venous Catheter BUpivacaine-epiNEPHr ine 0.25 %-1:200,000 injection ONCE PRN, Starting on Sat08/24/13 at 0753, Until Sat08/24/13 at 1127, Intra-Operative (Intra-Procedure), Routine Given 08/24/2013 7:53 AM EST 25 mg 19- Surgical Site gelatin adsorbable (GELFOAM) sponge ONCE PRN, Starting on Sat08/24/13 at 0752, Until Sat08/24/13 at 1127, Intra-Operative (Intra-Procedure) Given 08/24/2013 7:52 AM EST 1 each 19- Surgical Site lactated ringers infusion 1,000 mL 1,000 mL, at 100 mL/hr, Intravenous, CONTINUOUS, Starting on Sat08/24/13 at 0630, Until Sat08/24/13 at 1127, Day of Surgery (Day of Procedure) New Bag 08/24/2013 6:28 AM EST 1,000 mLs 100 mL/hr lactated ringers infusion 1,000 mL 1,000 mL, at 100 mL/hr, Intravenous, CONTINUOUS, Starting on Sat08/24/13 at 0630, Until Sat08/24/13 at 1127, Day of Surgery (Day of Procedure) New Bag 08/24/2013 9:02 AM EST 1,000 mLs 100 mL/hr methylprednisolone acetate (depo-MEDROL) injection ONCE PRN, Starting on Sat08/24/13 at 0822, Until Sat08/24/13 at 1127, Intra-Operative (Intra-Procedure), Routine Given 08/24/2013 8:22 AM EST 80 mg 19- Surgical Site OXYcodone (ROXICODONE) immediate release tablet 5 mg 5 mg, Oral, EVERY 4 HOURS PRN, Starting on Sat08/24/13 at 0841, Until Sat08/24/13 at 1418, Pain, Routine Given 08/24/2013 11:14 AM EST 5 mg thrombin (Bovine) (THROMBINAR) kit ONCE PRN, Starting on Sat08/24/13 at 0752, Until Sat08/24/13 at 1127, Intra-Operative (Intra-Procedure) Given 08/24/2013 7:52 AM EST 20,000 Units 19- Surgical Site vancomycin 1 g in dextrose 5% 200 mL 1,000 mg (1 g), Intravenous, ONCE, 1 dose, On Sat08/24/13 at 0630, Vancomycin may be administered at a rate of 1 gram per 60-90 minutes. Maximum rate of 1 gram per 60 minute., Day of Surgery (Day of Procedure), Routine, Indication for (Active or Suspected): Prophylaxis Given 08/24/2013 6:36 AM EST 1,000 mg documented in this encounter Active and Recently Administered Medications Times are shown in EST. Scheduled Medication Order 08/22/2013 08/23/2013 08/24/2013 vancomycin 1 g in dextrose 5% 200 mL (COMPLETED) 1,000 mg (1 g), Intravenous, ONCE, 1 dose, On Sat08/24/13 at 0630, Vancomycin may be administered at a rate of 1 gram per 60-90 minutes. Maximum rate of 1 gram per 60 minute., Day of Surgery (Day of Procedure), Routine, Indication for (Active or Suspected): Prophylaxis 0636 (Given - Provid er: Marium Garcia RN) Continuous Medication Order 08/22/2013 08/23/2013 08/24/2013 lactated ringers infusion 1,000 mL (CANCELED) 1,000 mL, at 100 mL/hr, Intravenous, CONTINUOUS, Starting on Sat08/24/13 at 0630, Until Sat08/24/13 at 1127, Day of Surgery (Day of Procedure) 0628 (New Bag - Prov ider: Marium Garcia RN) lactated ringers infusion 1,000 mL (CANCELED) 1,000 mL, at 100 mL/hr, Intravenous, CONTINUOUS, Starting on Sat08/24/13 at 0630, Until Sat08/24/13 at 1127, Day of Surgery (Day of Procedure) 0630 (Due)0902 (New Bag - Provider: Adeola Ugalde RN) PRN Medication Order 08/22/2013 08/23/2013 08/24/2013 bacitracin injection (CANCELED) ONCE PRN, Starting on Sat08/24/13 at 0752, Until Sat08/24/13 at 1127, Intra-Operative (Intra-Procedure), Routine 0752 (Given - Provid er: Antwon Phan MD - Comment: Mixed in 1000 ml Normal Saline) BUpivacaine-epiNEPHrine 0.25 %-1:200,000 injection (CANCELED) ONCE PRN, Starting on Sat08/24/13 at 0753, Until Sat08/24/13 at 1127, Intra-Operative (Intra-Procedure), Routine 0753 (Given - Provid er: Zoila Rajan MD) gelatin adsorbable (GELFOAM) sponge (CANCELED) ONCE PRN, Starting on Sat08/24/13 at 0752, Until Sat08/24/13 at 1127, Intra-Operative (Intra-Procedure) 0752 (Given - Provid er: Antwon Phan MD - Comment: Used with Topical Thrombin) methylprednisolone acetate (depo-MEDROL) injection (CANCELED) ONCE PRN, Starting on Sat08/24/13 at 0822, Until Sat08/24/13 at 1127, Intra-Operative (Intra-Procedure), Routine 0822 (Given - Provid er: Antwon Phan MD) OXYcodone (ROXICODONE) immediate release tablet 5 mg 5 mg, Oral, EVERY 4 HOURS PRN, Starting on Sat08/24/13 at 0841, Until Sat08/24/13 at 1418, Pain, Routine 1114 (Given - Provid er: Shilpa Merlos RN) thrombin (Bovine) (THROMBINAR) kit (CANCELED) ONCE PRN, Starting on Sat08/24/13 at 0752, Until Sat08/24/13 at 1127, Intra-Operative (Intra-Procedure) 0752 (Given - Provid er: Antwon Phan MD - Comment: Used with gelfoam) documented in this encounter Care Teams Histopathologist Relationship Specialty Start Date End Date Genie Abdullahi MD [facility] [address] [place] [address] PCP - General 02/23/11 documented as of this encounter
--- OUTSIDE RECORDS SUMMARY | 2024-07-17 08:25 | XMS_ITS | Encounter Summary ---
[facility] [place] [address] Care Team Providers Care Polisher Apprentice Name Role Phone Genie Abdullahi MD Primary Care Provider [phone] Reason for Visit * Reason Comments Follow-up Encounter Details Date Type Department Care Team (Late st Contact Info) Description 10/07/2013 1:20 PM EST Office [place] [address] Sal Phan MD [facility] [place] [place] [address] Lumbar herniated disc (Primary Dx) Discharge Disposition: [...] - - Weight 70.3 kg (155 lb) 10/07/2013 1:48 PM EST Height 170.2 cm (5' 7) 10/07/2013 1:48 PM EST Body Mass Index 24.28 10/07/2013 1:48 PM EST documented in this encounter Patient Instructions * Patient Instructions* Kathleen Munoz LPN - 10/07/2013 1:49 PM EST I would like you to sign up for myD-H, which will give you secure online access to your electronic medical record at [facility] and the ability to communicate with [...] the instructions. Here is your activation code: [email or web address] Expires: 11/21/2013 1:49 PM Remember, myD-H is NOT for urgent needs! Always dial 911 for medical emergencies. documented in this encounter Progress Notes * Sal Phan MD - 04/13/2014 6:01 PM EDT . documented in this encounter Plan of Treatment Upcoming Encounters Date Type Department Care Team (Latest Contact Info) Description 08/25/2024 8:10 AM EST Hospital Encounter Outpatient [place] [address] Marvin Ash MD [facility] [place] [address] 08/25/2024 8:10 AM EST - 08/25/2024 9:30 AM EST Surgery Outpatient [place] [address] Marvin Ash MD [facility] [place] [address] NEUROPLASTY &/OR TRANSPOSITION, ULNAR NERVE AT ELBOW (WRVU 7.26) 08/25/2024 9:40 AM EST Office Visit Dermatology at [facility] [address] [place] [address] Gary Combs MD [facility] [place] [address] 09/10/2024 10:30 AM EST Office [place] [address] Tess Florez PA [facility] [place] [address] Scheduled Procedures Name Priority Associated Diagnoses Date/Ti [...] nerve documented in this encounter Care Teams Polisher Apprentice Relationship Specialty Start Date End Date Genie Abdullahi MD [facility] [address] [place] [address] PCP - General 02/23/11 documented as of this encounter
--- OUTSIDE RECORDS SUMMARY | 2024-07-17 08:25 | XMS_ITS | Encounter Summary ---
Author Organization [facility] [place] [address] Care Team Providers Care Sales Porter Name Role Phone Genie Abdullahi MD Primary Care Provider [phone] Reason for Visit * Reason Comments Diabetes Encounter Details Date Type Department Care Team (Late st Contact Info) Description 03/21/2011 10:00 AM EDT Office [place] [address] Dipak Hoyos MD [facility] [place] [address] Diabetes mellitus (Primary Dx) Discharge Disposition: Home [...] Sign Reading Time Taken Comments Blood Pressure 133/79 03/21/2011 9:26 AM EDT Pulse 76 03/21/2011 9:26 AM EDT Temperature - - Respiratory Rate - - Oxygen Saturation - - Inhaled Oxygen Concentration - - Weight 69.2 kg (152 lb 9.6 oz) 03/21/2011 9:26 A M EDT Height 170.2 cm (5' 7) 03/21/2011 9:26 AM EDT Body Mass Index 23.9 03/21/2011 9:26 AM EDT documented in this encounter Progress Notes * Dipak Hoyos MD - 05/06/2011 11:10 AM EDT Opened in error * Dipak Hoyos MD - 05/06/2011 11:10 AM EDT Subjective: Patient ID: Chandrika Casanova is a 45 y.o. female. HPI Review of Systems Objective: Physical Exam Assessment and Plan: No problem-specific visit notes found for this encounter. documented in this encounter Plan of Treatment Upcoming Encounters Date Type Department Care Team (Latest Contact Info) Description 08/25/2024 8:10 AM EST Hospital Encounter Outpatient [place] [address] Marvin Ash MD [facility] DR [place] [address] 08/25/2024 8:10 AM EST - 08/25/2024 9:30 AM EST Surgery Outpatient [place] [address] Marvin Ash MD [facility] [place] [address] NEUROPLASTY &/OR TRANSPOSITION, ULNAR NERVE AT ELBOW (WRVU 7.26) 08/25/2024 9:40 AM EST Office Visit Dermatology at [address] [place] [address] Gary Combs MD [facility] DR [address] [place] [address] 09/10/2024 10:30 AM EST Office [place] [phone] Tess Florez PA [facility] DR [place] [address] Scheduled Procedures Name Priority Associated Diagnoses Date/Ti [...] nerve documented in this encounter Care Teams Sales Porter Relationship Specialty Start Date End Date Genie Abdullahi MD [facility] [address] [facility] [address] [place] [address] PCP - General 02/23/11 documented as of this encounter
--- OUTSIDE RECORDS SUMMARY | 2024-07-17 08:25 | XMS_ITS | Encounter Summary ---
Author Organization [facility] [place] [address] Care Team Providers Care Anesthesiology Technologist Name Role Phone Genie Abdullahi MD Primary Care Provider [phone] Encounter Details Date Type Department Care Team (Latest Contact Info) Description 08/24/2013 5:52 AM EST - 08/24/2013 11:44 AM EST Hospital En[place] [address] Antwon Phan MD [facility] [place] [address] Discharge Disposition: Home Social History Tobacco Use [...] to call before 5 PM weekdays and [phone] after 5PM and weekends. Pain Medication: No [...] is ready for discharge. IV out per [facility] Policy. documented in this encounter H&P Notes * Zoila Rajan MD - 08/24/2013 6:25 AM EST No change from prior Heart: normal S1 and S2. No M/R/G Lungs: ctab anteriorly documented in this encounter Miscellaneous Notes * Miscellaneous - Provider, Nimisha - 08/24/2013 10:42 AM EST * Op [...] EST Hospital Encounter Outpatient [place] [address] Marvin Ash MD [facility] [place] [address] 08/25/2024 8:10 AM EST - 08/25/2024 9:30 AM EST Surgery [facility] [place] [address] Marvin Ash MD [facility] [place] [address] NEUROPLASTY &/OR TRANSPOSITION, ULNAR NERVE AT ELBOW (WRVU 7.26) 08/25/2024 9:40 AM EST Office Visit Dermatology at [facility] [address] [place] [address] Gary Combs MD [facility] [address] [place] [address] 09/10/2024 10:30 AM EST Office [place] [address] Tess Florez PA [facility] [place] [address] Pending Results Name Type Priority Associated Diagnoses [...] * POCT Glucose (08/24/2013 8:49 AM EST) [facility] Glucose, POC 128 60 - 199 mg/dL [facility] Comment: Supplemental ranges: <110 mg/dL before meals <200 mg/dL all other times of the day Blood specimen (specimen) 08/24/2013 8:49 AM EST 08/24/2013 8:49 AM EST Antwon Phan MD POINT OF CARE TEST O LIZA Performing Organization Address [facility] Co de Phone Number [facility] * POCT Glucose (08/24/2013 6:40 AM EST) Glucose, POC 95 60 - 199 mg/dL [facility] Comment: Supplemental ranges: <110 mg/dL before meals <200 mg/dL all other times of the day Blood specimen (specimen) 08/24/2013 6:40 AM EST 08/24/2013 6:40 AM EST Antwon Phan MD POINT OF CARE TEST O LIZA Performing Organization Address [facility] Phone Number [facility] documented in this encounter Visit Diagnoses Not on filedocumented in this encounter Administered Medications Inactive Administered Medications - up to 3 most recent administrations Medication Order MAR Action Action Date Dose Rate Site lactated ringers infusion 1,000 mL 1,000 [...] 9:02 AM EST 1,000 mLs 100 mL/hr OXYcodone (ROXICODONE) immediate release tablet 5 mg 5 mg, Oral, EVERY 4 HOURS PRN, Starting on Sat08/24/13 at 0841, Until Sat08/24/13 at 1418, Pain, Routine Given 08/24/2013 11:14 AM EST 5 mg vancomycin 1 g in dextrose 5% 200 [...] gelfoam) documented in this encounter Care Teams Anesthesiology Technologist Relationship Specialty Start Date End Date Genie Abdullahi MD [facility] [address] [place] [address] PCP - General 02/23/11 documented as of this encounter
[2024-07-17 14:41] LABS: Calculated LDL 49 mg/dL (<100); Cholesterol 145 mg/dL (<200); HDL Cholesterol 80 mg/dL (40-60); Triglyceride 82 mg/dL (<150)
== END 2024-07-17 08:21 | disposition home or self-care (01) ==
LOC: NCHCN 08:20
PROVIDERS: PCP Family Medicine; Visit Provider Family Medicine
DX: E78.5 Hyperlipidemia, unspecified (principal); E11.9 Type 2 diabetes mellitus without complications
CPT/HCPCS: 80061; 83036

== ENCOUNTER 2024-10-05 11:42 | Outpatient (CLI) | payer OTHER, SELFPAY ==
--- NOTE | 2024-10-05 10:45 | DI.RAD_ITS ---
Exam(s) XR CHEST 2V PA LATERAL EXAM: XR CHEST 2V PA LATERAL CLINICAL HISTORY: eval pna Cough R05.9. TECHNIQUE: 2D digital imaging was performed. COMPARISON: CR XR ABD FLAT UPRIGHT PA CHEST from 04/23/2024 FINDINGS: 2 views: Heart size is normal. The mediastinum is not widened. Lungs are clear. No infiltrates nor pleural effusions. Mild scoliosis again noted. IMPRESSION: No acute pulmonary findings. DATA REPOSITORY: RADIATION DOSE DELIVERED:
== END 2024-10-05 12:02 ==
LOC: DI 11:43
PROVIDERS: PCP Family Medicine; Visit Provider Nurse Practitioner Family
DX: R05.9 Cough, unspecified (principal)
CPT/HCPCS: 71046

== ENCOUNTER 2024-12-02 12:17 | Outpatient (CLI) | payer OTHER, SELFPAY ==
[2024-12-02] VITALS (20 sets, daily range): BP systolic 78–148; BP diastolic 58–92; PULSE 48–86; RESP 9–20; TEMP 36.6; O2SAT 93–97
[2024-12-02] MEDS: fentaNYL 100 MCG/2 ML VIAL IVP (13:30)
[2024-12-02] MEDS: Midazolam 2 MG/2 ML VIAL IVP (13:30)
[2024-12-02] MEDS: Lactated Ringers 500 ML 80 ML IV (13:49)
[2024-12-02] MEDS: methylPREDNISolone ACETATE 40 MG/ML VIAL IJ (14:17)
[2024-12-02] MEDS: Nerve Block Tray 1 EACH MC (14:18)
[2024-12-02] MEDS: Bupivacaine 0.5% Pres-Free 10 ML VIAL IJ (14:18)
[2024-12-02] MEDS: Lidocaine 2% Multi-Dose 20 ML VIAL IJ (14:18)
--- NOTE | 2024-12-02 14:20 | DI.RAD_ITS ---
Exam(s) XR PAIN CLINIC LUMBAR SP 2V EXAM: XR PAIN CLINIC LUMBAR SP 2V CLINICAL HISTORY: DX: Lumbar Spondylosis. TECHNIQUE: Fluoroscopy was provided for the referring physician for guidance with performing pain cl inic injection procedure. COMPARISON: No exams were available for comparison FINDINGS: Please see procedure note for details. Fluoro time: 62.9 seconds RADIATION DOSE DELIVERED: Kar=19.8 mGy
--- NOTE | 2024-12-02 14:24 | PDOC.PAIN_ITS ---
Date of service: 12/02/24 Time of Service: 14:24 Pain Managment Procedure Note Procedure Note Procedure Note: PROCEDURE NOTE BILATERAL LUMBAR RADIOFREQUENCY ABLATION Date of Service: December 02, 2024 Patient:? Chandrika Casanova? Provider:? Gary Bell DO, MPH Chandrika Casanova [facility] Bilateral Lumbar Radiofrequency Ablation with the [employer] Machine.? Pre Operative Diagnosis: Lumbosacral Spondylosis without Myelopathy ICD-10 M47.816 Post Operative Diagnosis: Same Pre procedure pain; VAS= 8/10 Comments: Great results with her last RFA with >50% pain relief PROCEDURE: Radiofrequency Ablation of medial branches - bilateral L3, L4, L5 and lateral branches of bilateral S1. Chandrika?was interviewed and the medical record was reviewed.? There were no medical, pharmacologic, radiographic or other structural contraindications to attempting fluoroscopically guided BILATERAL Lumbar Radiofrequency Ablation.?Risks and expected side effects as well as potential benefit of the procedure were reviewed with Chandrika, and the patient's voiced concerns were addressed.? The printed consent form was signed.? Standard time-out procedure was performed. Chandrika was brought into the fluoroscopy suite and positioned into the prone position on the fluoroscopy table and allowed to adjust to a position of comfort. A grounding pad was placed on the left abdomen. The sterile field was prepared using chlorhexidine preparation of the skin and sterile draping. Local anesthesia superficial and deep was provided by local infiltration of 2% lidocaine. A 17g 100 mm radiofrequency introducer needle was placed to the planned anatomic targets guided with intermittent fluoroscopy with a perpendicular approach to terminally place at the junction of the superior articular process and the transverse process of the bilateral L4, L5, the base of the sacral ala on the bilateral for the L5 medial branch nerve and the area between base of the sacral ala to the S1 foramen bilaterally. The stylets were removed and radiofrequency probes with a 4mm active tip were then inserted. Needle tip position of the probes was verified in the AP, oblique, and lateral views. At each site, the medial branch nerve was stimulated at 2 Hz to a maximum 1-2 volts determined to finalize safe needle and electrode placement. The patient was awake and responsive during this portion of the procedure. Each target was anesthetized with 1-2 mL of 2 % Lidocaine for anesthesia for lesioning and then each target was lesioned at 80 degrees Celsius for 2 minutes and 30 seconds. Tissue impedances were noted to be between 250 and 500 Ohms. Next, I injected 1/4 cc of Depomedrol (40 mg/cc) followed by 1 cc of 0.5% Bupivacaine at each segmental sensory nerve. There was no unusual discomfort expressed by Chandrika. The needles were withdrawn without difficulty and bandages placed over the needle placement sites, the patient was observed and was without hemodynamic, neurologic, or allergic reactions. Fluoroscopic images were digitally archived. POST PROCEDURE EVALUATION: IMPRESSION: 1. Summary of procedure. Medication given is documented in the MAR. 2. Follow up plan: Chandrika to contact [facility] as needed.?This procedure may be repeated if the patient achieves at least 50% improvement in pain/function for at least 6 months. 3. Estimated Blood Loss: <5 mls 4. Fluoroscopy time: Documented in the EMR. Follow up plans and appointments were discussed with the Chandrika. Post procedure instruction was given as documented in nursing documentation and having met discharge criteria, Chandrika was [facility] from the [facility]. This advanced procedure uses cooled radiofrequency energy to safely target the sensory nerves responsible for sending pain signals.1 A radiofrequency generator transmits a small current of Radiofrequency energy through an insulated electrode, or probe, placed within tissue. Ionic heating, produced by the friction of charged molecules, thermally deactivates the nerves responsible for sending pain signals to the brain. Radiofrequency energy heats and cools the tissue at the site of pain. Unlike other Radiofrequency procedures, Coolief circulates water through the device while heating nervous tissue to create a larger treatment area, increasing the opportunity to help with pain. This combination targets the pain- transmitting nerves without excessive heating, leading to pain relief. COMMENTS: No apparent complications. Post-procedure pain: VAS= 0/10. I personally completed the entire procedure. GARY BELL DO, MPH ABPM&R - Subspecialty board certification in Pain Medicine [facility] Coding Conscious Sedation used for procedure: Yes CPT Codes: Single Facet Joint, Lumbar/Sacral cool - 79381J (30447V14~G) Bilateral Single Facet Joint, Lumbar/Sacral cool each add'l - 56744O (11230Q99~G) Bilateral Additional Codes: Date of Service (76861) Date of service: 12/02/24
== END 2024-12-02 12:18 | disposition home or self-care (01) ==
LOC: PC 12:18
PROVIDERS: PCP Family Medicine; Visit Provider Preventive Medicine Occupational Medicine
DX: M47.816 Spondylosis without myelopathy or radiculopathy, lumbar region (principal)
CPT/HCPCS: 64635; 64636; 72100; J0665; J1010; J2003; J2250; J3010

== ENCOUNTER 2025-01-22 00:31 | Outpatient (CLI) | payer OTHER, SELFPAY ==
--- NOTE | 2025-01-22 | DI.MAMMO_ITS ---
Exam(s) MAMMO SCREENING EXAM: MAMMO SCREENING CLINICAL HISTORY: Screening, Z12.31 TECHNIQUE: Mammograms were interpreted according to the usual protocol including computer analysis with CAD system, tomosynthesis and C-view imaging. COMPARISON: 2015 through 2023 FINDINGS: The breasts are composed of heterogeneously dense fibroglandular densities, Breast Density category C. No suspicious masses or suspicious microcalcifications are seen. No skin thickening or abnormal axillary lymph nodes are seen. There has been no significant change from prior exams. IMPRESSION: BI-RADS Category 1, Negative mammogram. Yearly screening mammography is recommended. Breast Density: Category C - The breasts are heterogeneously dense, which may obscure small masses. Breast density Category C or D implies that the patient has dense breast tissue. Dense breast tissue can make it harder to find cancer on a mammogram. Dense breast tissue is also associated with an increased risk of breast cancer. This information about the result of the mammogram report was provided to the patient to raise their awareness. Use this report when you speak with the patient about their risks for breast cancer, which includes their family history. At that time, you may recommend additional screening tests (Ultrasound or MRI) as these tests may add significant information. A negative radiographic report should not delay biopsy if a dominant or clinically suspicious mass is present. Up to ten percent of cancers are not identified on mammography. A negative report may reinforce clinical impression. Adenosis and dense breasts may obscure an underlying neoplasm. False positive reports average 6 to 10%.
== END 2025-01-22 00:51 ==
LOC: DI 00:31
PROVIDERS: PCP Family Medicine; Visit Provider Obstetrics & Gynecology
DX: Z12.31 Encounter for screening mammogram for malignant neoplasm of breast (principal); R92.333 Mammographic heterogeneous density, bilateral breasts
CPT/HCPCS: 77063; 77067

== ENCOUNTER 2025-04-06 15:07 | Outpatient (REF) | payer OTHER, SELFPAY ==
[2025-04-06 15:30] LABS: HCT 44.7 % (36.0-46.0); HGB 14.9 g/dL (11.2-15.7); MCH 29.7 pg (27.0-33.0); MCHC 33.3 % (32.0-36.0); MCV 89 fL (80-95); MPV 10.6 fL (8.0-11.0); Platelet Count 199 10^3/uL (130-400); RBC 5.01 10^6/uL (3.93-5.22); RDW 12.2 % (11.7-14.6); RDW-SD 39.8 fL; WBC 5.83 10^3/uL (4.4-10.8)
[2025-04-06 15:46] LABS: ALT 35 U/L (14-59); AST 21 U/L (15-37); Albumin 3.9 g/dL (3.4-5.0); Alkaline Phosphatase 106 U/L (46-116); Anion Gap 9.6 mmol/L (3-11); BUN 25 mg/dL (7-18); Bilirubin, Total 1.0 mg/dL (0.2-1.0); CO2 25.4 mmol/L (21.0-32.0); Calcium 9.2 mg/dL (8.5-10.1); Chloride 105 mmol/L (98-107); Estimated GFR 83.78 (mL/min/1.73m2); Glucose 131 mg/dL (74-106); Potassium 4.2 mmol/L (3.5-5.1); Sodium 140 mmol/L (136-145); Total Protein 6.8 g/dL (6.4-8.2)
[2025-04-06 16:37] LABS: Glucose >=1000 mg/dL (Negative)
[2025-04-06 16:43] LABS: C & S Indicated? No
== END 2025-04-06 15:08 | disposition home or self-care (01) ==
LOC: LBN 15:07
PROVIDERS: PCP Family Medicine; Visit Provider Family Medicine
DX: R10.32 Left lower quadrant pain (principal)
CPT/HCPCS: 80053; 85027; 81003; 81015

== ENCOUNTER 2025-04-12 14:57 | Outpatient (CLI) | payer OTHER, SELFPAY ==
--- NOTE | 2025-04-12 09:30 | DI.RAD_ITS ---
Exam(s) XR HIP PELVIS ADULT BL EXAM: XR HIP PELVIS ADULT BL CLINICAL HISTORY: BILATERAL HIP PAIN. TECHNIQUE: 2D digital imaging was performed. Three views. COMPARISON: CR XR HIP RT AP LAT ONLY from 07/20/2021 MR MRI HIP WO CONTRAST from 08/03/2021 CR XR ABDOMEN FLAT PLATE from 04/21/2024 FINDINGS: BONES: No acute fracture is present. No bony destructive lesion is seen. JOINTS: There is a right total hip prosthesis. The alignment appears satisfactory and unchanged. The left hip joint space is maintained. There is minimal spurring at the acetabulum. SI joints and pubic symphysis are unremarkable. SOFT TISSUE: Normal. IMPRESSION: Minimal degenerative changes of the left hip. Stable appearance of right hip prosthesis. DATA REPOSITORY: RADIATION DOSE DELIVERED:
== END 2025-04-12 14:58 | disposition home or self-care (01) ==
LOC: DIORS 14:57
PROVIDERS: PCP Family Medicine; Visit Provider Student in an Organized Health Care Education/Training Program
DX: M25.551 Pain in right hip (principal); M25.552 Pain in left hip; M16.12 Unilateral primary osteoarthritis, left hip; Z96.641 Presence of right artificial hip joint
CPT/HCPCS: 73521

== ENCOUNTER 2025-06-25 06:15 | Day surgery (SDC) | payer OTHER, SELFPAY ==
--- NOTE | 2025-06-24 17:51 | W.ANESPRE ---
General Info Date of Service Date Performed: 06/25/25 Height: 5 ft 7 in Weight: 85.275 kg Body Mass Index (BMI): 29.4 Surgical Procedure: Operation Date: 06/25/25 07:50 Proposed Procedure Side Surgeon p Endoscopic Iliotibial Band Release w/Trochanteric Bursectomy, Possible Gluteal Tendon Repair Right Nestor Donato MD Meds Allergies and Home Medications Allergies Allergy/AdvReac Type Severity Reaction Status Date / Time cephalexin monohydrate (From Allergy Intermediate RASH Verified 06/25/25 06:37 Keflex) chlorhexidine gluconate Allergy Intermediate Skin Rash Verified 06/25/25 06:37 (From Hibiclens) sulfamethoxazole (From Allergy Intermediate RASH Verified 06/25/25 06:37 Bactrim) trimethoprim (From Bactrim) Allergy Intermediate RASH Verified 06/25/25 06:37 adhesive Allergy Unknown Skin Rash Verified 06/25/25 06:37 povidone-iodine (From E-Z Allergy Unknown Skin Rash Verified 06/25/25 06:37 Scrub Preoperative) prednisone AdvReac Unknown blurred Verified 06/25/25 06:37 vision Home Medication Medication Instructions Recorded omeprazole 20 mg capsule,delayed 20 mg PO DAILY 03/25/15 release Held on 12/14/24. Instructions: Changed by Provider ascorbic acid (vitamin C) 1,000 mg 1,000 mg PO DAILY 04/29/17 tablet (Vitamin C With Risa Hips) calcium 600 mg-D3 400 1 ea PO DAILY 04/29/17 unit-magnesium 40 ci-Nz-nrq-Mn-boron chew tablet lisinopril 5 mg tablet 5 mg PO DAILY 04/29/17 rosuvastatin 20 mg tablet (Crestor) 20 mg PO QPM 01/02/18 celecoxib 200 mg capsule (Celebrex) 400 mg PO DAILY 07/20/21 Orthotic #1 ea 01/03/22 Held on 04/21/24. Instructions: Changed by Provider aspirin 81 mg tablet,delayed 81 mg PO DAILY 02/22/23 release (Adult Aspirin Regimen) ferrous sulfate 325 mg (65 mg 325 mg PO DAILY Restless Leg 01/10/24 iron) tablet (iron) Syndrom/Tiredness duloxetine 20 mg capsule,delayed 20 mg PO DAILY 04/22/24 release insulin glargine 100 unit/mL (3 42 - 50 unit subcut QPM 06/17/24 mL) subcutaneous pen (Basaglar KwikPen U-100 Insulin) empagliflozin 25 mg tablet 10 mg PO DAILY 11/10/24 (Jardiance) indomethacin 25 mg capsule 25 mg PO DAILY PRN 11/10/24 insulin lispro 100 unit/mL 25 unit subcut AC 11/10/24 subcutaneous solution (Humalog U-100 Insulin) triamcinolone acetonide 0.1 % 1 applic dental QID 11/10/24 dental paste Current Visit Medications: Current Medications Generic Name Dose Route Start Last Admin Trade Name Freq PRN Reason Stop Dose Admin Ringer's Solution 1,000 mls @ 30 mls/hr 06/25/25 06:00 IV 06/25/25 23:59 INFUSION DANIEL Cefazolin Sodium/Dextrose 2 gm in 50 mls @ 100 mls/hr 06/25/25 06:00 Ancef Duplex IVPB 06/25/25 23:59 PREOP DANIEL Tranexamic Acid/Sodium Chloride 1,000 mg in 100 mls @ 600 mls/hr 06/25/25 06:00 IVPB 06/25/25 23:59 PREOP DANIEL IV Miscellaneous Supplies 1 each 06/25/25 06:00 Iv Access IV 06/25/25 23:59 DIRECTED DANIEL Sodium Chloride 0 ml 06/25/25 06:00 Normal Saline Flush 10 Ml Syr IV 06/25/25 23:59 PRN PRN Sodium Chloride 0 ml 06/25/25 06:00 Normal Saline 10 Ml Vial IJ 06/25/25 23:59 DIRECTED PRN Sterile Water 0 ml 06/25/25 06:00 Water,Injection,Sterile 10 Ml Vial IJ 06/25/25 23:59 DIRECTED PRN PFSH Active Problems Active Problems: Problem Status Onset Code Iliotibial band syndrome of right side Acute M76.31 Trochanteric bursitis of left hip Acute M70.62 Dysphonia Acute R49.0 Sepsis Acute A41.9 SVT (supraventricular tachycardia) Chronic I47.10 Lumbosacral spondylosis without myelopathy Acute M47.817 Bilateral sensorineural hearing loss Acute H90.3 Excessive cerumen in right ear canal Acute H61.21 Foot pain, right Acute M79.671 Insomnia Acute G47.00 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), managed as type 1 Acute E13.9 Medial epicondylitis of left elbow Acute M77.02 Post-menopausal bleeding Acute N95.0 Lower limb length difference Acute M21.70 Iliotibial band syndrome affecting right lower leg Acute M76.31 GARRY (obstructive sleep apnea) Chronic G47.33 Hip pain, right Acute M25.551 Pain of left foot Acute M79.672 Arthritis of right ankle Acute M19.071 Arthritis Acute 04/12/14 M19.90 Atrophic vaginitis Acute 06/18/17 N95.2 Elevated lipids Acute 06/18/17 E78.5 GERD (gastroesophageal reflux disease) Acute 04/12/14 K21.9 HTN (hypertension) Acute 04/12/14 I10 Hyperlipidemia Acute 04/12/14 E78.5 Lichen sclerosus Acute 06/18/17 L90.0 Migraine Acute 04/12/14 G43.909 Spondylosis of lumbar region without myelopathy or radiculopathy Chronic M47.816 Medical History Medical History Diabetes Laryngeal candidiasis Chronic rhinitis Cramp in lower extremity associated with sleep Pain of right hip joint Low back pain Otalgia of right ear Periodic limb movement disorder Overweight History of basal cell carcinoma (BCC) of skin Neutropenia mild Neuritis of left ulnar nerve Yeast vaginitis Pain due to total hip replacement Pain in hip region after hip replacement Trochanteric bursitis, right hip Bilateral hand pain TMJ (dislocation of temporomandibular joint) pt. denies this Dysmenorrhea Menorrhagia Surgical History Surgical History History of ankle surgery right total ankle arthroplasty 05/2022 History of carpal tunnel surgery 08/25/2024 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 Hx of appendectomy H/O wrist surgery S/P repair of ligament of ankle History of tonsillectomy tennis elbow surgery L Left elbow 2001 Right elbow surgery for tendonitis 2006 Uterine suspension with L partial salpingectomy 1996 Ligation of fallopian tube Total replacement of hip Right hip 2006 L5 herniated disc repair 08[place] [facility] [place] (03/25/15) DR.TERRY KEBEDE Tobacco Smoking/Tobacco Use Status: Never Passive smoking exposure: No Alcohol Alcohol Intake: current Alcohol intake frequency: holidays/special occasions only Substance Use Substance use: Never Substance use type: does not use Prental History History 2 Para 1 Hx # Term Pregnancies Multiple births Hx # Pregnancies Ectopic pregnancies AB induced Hx Number of Living Children AB spontaneous Vital Signs and Lab Results Vital Signs Most Recent Vital Signs in EMR: Temp Pulse Resp BP Pulse Ox 36 C L 85 16 144/81 H 99 06/25/25 06:20 06/25/25 06:20 06/25/25 06:20 06/25/25 06:20 06/25/25 06:20 Anesthesia Assessment and Plan Anesthesia History Personal History: No History of Anesthesia Complications Family History: No Family History of Anesthesia Complications Exercise Tolerance Exercise Tolerance: Metabolic Equivalents>4 Cardiac & Pulmonary Exam Cardiac Exam: Normal S1/S2 Heart Sounds Pulmonary Exam: Clear Bilateral Breath Sounds Implantable Cardiac Device Does patient have a Pacemaker or an ICD?: No Airway Exam Known Difficult Airway: No Mallampati Class: 4 Mouth Opening: Narrow (< 3cm) Thyromental Distance: Greater than 3 cm Neck Range of Motion: Limited ROM Neck Circumference: Thick Teeth Condition: Normal Dentition ASA Classification ASA Score: ASA 3 Emergency Case?: No NPO Status NPO Status: NPO Clears >2 hours, Solids >8 hours Anesthesia Plan Resuscitation Status: Full Code Anesthesia Technique: General Anesthesia Airway Planned: Endotracheal Tube Monitors Used: Standard Monitors 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 Sig PMHx: HTN (lisinopril), GARRY, GERD (omeprazole. questionably controlled: denies reflex all the time, but does sleep with the hob on risers), lumbar radiculopathy (occ numbness in feet), DM (glargine, lispro, Jardiance - last A1c 7's. BS today 180s. Was canceled for a colo recently due to BS in the 300s). ECG: sinus tach.
[2025-06-25] VITALS (14 sets, daily range): BP systolic 119–146; BP diastolic 64–81; PULSE 65–85; RESP 13–21; TEMP 36–36.6; O2SAT 92–99; BMI 29.4
[2025-06-25] MEDS: Lactated Ringers 1,000 ML 30 ML IV (07:00)
--- NOTE | 2025-06-25 07:07 | W.PM.DSUDISC ---
Date of service: 06/25/25 Discharge Plan Disposition Patient Disposition: Home Condition: Stable Discharge Details Attending Provider: Nestor Donato Primary Care Provider: Genie Abdullahi Home Meds and New Rx's Prescriptions: New oxycodone 5 mg tablet 5 - 10 mg PO .q4-6h MDD 30 mg PRN (Reason: severe pain) Qty: 18 0RF Continued (DME) Orthotic See Rx Instructions .Route .MEDSUPPLY Qty: 1 0RF Rx Instructions: She needs some sort of shoe lift as she is pirouetting of the much longer left leg. aspirin [Adult Aspirin Regimen] 81 mg tablet,delayed release (DR/EC) 81 mg PO DAILY ferrous sulfate [iron] 325 mg (65 mg iron) tablet 325 mg PO DAILY Patient Comments: Blood test resulted in low iron level ascorbic acid (vitamin C) [Vitamin C With Risa Hips] 1,000 MG tablet 1,000 mg PO DAILY lisinopril 5 MG tablet 5 mg PO DAILY Ca-D3-mag sg-aghp-cnd-davey-bor 1 EACH tablet,chewable 1 ea PO DAILY Jardiance 25 mg tablet 10 mg PO DAILY indomethacin 25 mg capsule 25 mg PO DAILY PRN Rx Instructions: administer with food or milk-migraines insulin lispro [Humalog U-100 Insulin] 100 unit/mL solution 25 unit subcut AC Patient Comments: 4 units triamcinolone acetonide 0.1 % paste 1 applic dental QID Rx Instructions: to teeth four times a day. lesion 2-4 times a day until healed. Do not rinse, avoid eating or drinking 30 minutes after application. omeprazole 20 MG capsule,delayed release(DR/EC) 20 mg PO DAILY rosuvastatin [Crestor] 20 MG tablet 20 mg PO QPM insulin glargine [Basaglar KwikPen U-100 Insulin] 100 unit/mL (3 mL) insulin pen 42 - 50 unit subcut QPM Patient Comments: last night 48units celecoxib [Celebrex] 200 mg capsule 400 mg PO DAILY duloxetine 20 mg capsule,delayed release(DR/EC) 20 mg PO DAILY Discharge Instructions Additional Instructions: Surgery: Right hip endoscopy with iliotibial band release and trochanteric bursectomy (including lysis of adhesions and removal of scar tissue from multiple prior open surgeries) 06/25/25 Activity: Weightbearing as tolerated. May use crutches or walker as needed for a few days. Gradually advance to full range of motion and activity over the next few weeks. A physical therapy prescription will be provided separately in the office at follow up if needed. Prescriptions: Resume home Aspirin 81 mg 1 daily starting tomorrow Resume home Celebrex 400 mg daily as needed for moderate pain Continue home indomethacin 25 mg daily as needed for breakthrough pain Oxycodone 5 mg take 1-2 every 4-6 hours as needed for severe pain You may use elwm-auu-exbwhxo Tylenol (acetaminophen) as needed for mild pain. These pain medications may be taken all at once or in different combinations as needed. Also, recommend Colace (docusate) as a stool softener as surgery and pain medicine cause constipation. You may try ulsg-qvr-jvdqunc diphenhydramine (Benadryl) 25-50 mg nightly as a sleep aid Dressings: Leave dressing in place for 3 days. May then remove and leave open to air or cover incisions with Band-Aids. Leave the sticky Steri-Strips in place until they fall off or remove them after you shower. May shower after 5 days. Follow-up: 10-[address] Donato You may take off the leg compression stockings this evening at home. You may also leave them on a few days longer if you have a history of leg swelling or edema. Let us know right away if you develop any redness, drainage, fevers, chest pain, or trouble breathing. Do not drink alcohol or drive for at least 24 hours after anesthesia. Please call the office during business hours with any questions or concerns. Stand Alone Forms: Portal Information Discharge Orders Discharge Orders: Discharge Order (Routine); Ordered 06/25/25 Ordered By: Vilma Ramesh DS: Diagnosis Discharge Diagnosis (1) Iliotibial band syndrome of right side: Status: Acute (2) Trochanteric bursitis, right hip: Status: Acute
[2025-06-25] MEDS: ceFAZolin 2 GM/50 ML BAG IVPB (07:24)
[2025-06-25] MEDS: TRANEXAMIC ACID/SOD. CHL. 1,000 MG/100 ML BAG 600 MG IVPB (07:32)
[2025-06-25] MEDS: Bupivacaine 0.25% Pres-Free W/EPI 30 ML VIAL (07:59)
[2025-06-25] MEDS: EPINEPHrine 10 MG/10 ML ML (07:59)
--- NOTE | 2025-06-25 08:34 | ROE_ITS ---
Operative Note Operative Note PRE-OP DIAGNOSIS: Right hip 1. Iliotibial band syndrome 2. Trochanteric bursitis 3. Peritrochanteric adhesions/scarring from multiple prior open hip surgeries POST-OP DIAGNOSIS: same PROCEDURE: Right hip endoscopic 1. Iiliotibial band release, CPT# 66172 2. Trochanteric bursectomy, CPT# 69895 SURGEON: Nestor Donato ANESTHESIA TYPE: Local By Surgeon and General LMA/ETT Refer to Anesthesia Record ESTIMATED BLOOD LOSS: 5 COMPLICATIONS: None Patient was transported to: PACU Patient's condition: stable Indications: Please see complete medical record for details. Findings: Abundant adhesions and scarring from the multiple open hip surgeries through different posterior lateral and anterior approaches including superficial and deep to the iliotibial band with moderate inflamed trochanteric bursitis below. Enlarged greater trochanteric bony prominence proximally, but surrounding covered by intact gluteal tendons. Procedure Description: In the operating room, general anesthesia was induced. The patient was positioned supine on the [place] operating room table. All bony prominences were well-padded. Preoperative antibiotics were administered. The hip was prepped and draped in the usual sterile fashion. The correct patient, procedure, and side of the procedure were all verified prior to incision. 30 cc of 0.25% bupivacaine containing epinephrine was infiltrated about the subcutaneous tissues for the planned anterior lateral and distal anterolateral portals as well as deeply over the greater trochanter. A knife was used to incise the skin for the anterior lateral and distal anterolateral portals followed by blunt dissection subcutaneously. Under fluoroscopic guidance, a switching stick and arthroscope were inserted localizing the iliotibial band over the greater trochanter. Blunt dissection and the mechanical shaver were used to resect fat and overlying tissue about the center of the iliotibial band and carefully expose the anterior and posterior margins. Once there was adequate exposure of the IT band, the greater trochanter was again localized under fluoroscopic guidance with a spinal needle inserted through the skin down to bone. This central area was marked using the radiofrequency ablator. A [place] blade was brought in and used to create a 2 cm longitudinal incision in line with the IT band fibers as well as extending it in a cruciate fashion with 2 cm incisions anteriorly and posteriorly. The radiofrequency ablator was used to achieve hemostasis. The mechanical shaver was then used to debride the IT band released edges exposing the trochanteric bursa. The mechanical shaver was then used to excise the trochanteric bursa taking care to protect musculature about the margins of the greater trochanter as well as neurovascular structures especially posteriorly. There was excellent visualization of the vastus lateralis as well as gluteus medius confirming appropriate bursa excision. The hip was brought through range of motion including internal and external rotation and there was no impinging iliotibial band tissue or remaining pathologic bursa. The viewing and working portals were switched and appropriate IT band release, trochanteric bursa excision, and hemostasis confirmed. Additional time was spent carefully working around the posterior lateral margin as well as anteriorly and freeing the now mobile trochanter gluteus and vastus tendons from some additional adhesions and scarring. Suction was used to remove fluid from the endoscopic space. The portals were closed using 3-0 Monocryl in a buried fashion. Steri-Strips were applied over the incisions followed by Xeroform, 4 x 4 gauze, an ABD pad, and secured with tape. The patient awoke from anesthesia without complication and was transferred to the recovery room in a stable condition. Date of Procedure: 06/25/25
--- NOTE | 2025-06-25 08:38 | DI.RAD_ITS ---
Exam(s) XR HIP RT IN OR EXAM: XR HIP RT IN OR CLINICAL HISTORY: RIGHT IT BAND SYNDROME. TECHNIQUE: 2D and realtime digital imaging was performed. COMPARISON: CR XR HIP PELVIS ADULT BL from 04/12/2025 FINDINGS: Please see procedure note for details. Fluoro time: 0.04seconds RADIATION DOSE DELIVERED: helen Lisa=0.51 mGy
--- NOTE | 2025-06-25 09:21 | W.ANESPOSTOP ---
Postoperative Evaluation Date, Time and Location Date Performed: 06/25/25 Time Performed: : Patient Location: Day Surgery Unit Vital Signs Most Recent Imported Vital Signs: Most Recent Vital Signs Temp Pulse Resp BP Pulse Ox 36.0 C L 70 18 119/71 96 06/25/25 09:13 06/25/25 09:13 06/25/25 09:13 06/25/25 09:13 06/25/25 09:13 Pain Score Most Recent Pain Score: Most Recent Pain Score Pain Level 3 06/25/25 09:13 Assessment Mental Status: Awake (Alert & Oriented to Patient Baseline) Airway and Respiratory Function: Patent airway with normal (patient baseline) respiratory exam Cardiovascular Function: Hemodynamically Stable Hydration Status: Adequately Hydrated Nausea & Vomiting: No Nausea or Vomiting Pain: Pain is tolerable per patient Peripheral Nerve Block: Patient did not receive a nerve block
== END 2025-06-25 10:15 | disposition home or self-care (01) ==
PROVIDERS: PCP Family Medicine; Visit Provider Student in an Organized Health Care Education/Training Program
PROC: (CPT 29863; principal; 2025-06-25 07:30)
DX: M76.31 Iliotibial band syndrome, right leg (principal); M70.61 Trochanteric bursitis, right hip
CPT/HCPCS: 27062; 27305; 73501; J0131; J0690; J1100; J1885; J2371; J2405; J2704; J3475

== ENCOUNTER 2025-07-27 11:31 | Outpatient (CLI) | payer OTHER, SELFPAY ==
--- NOTE | 2025-07-27 10:30 | DI.RAD_ITS ---
Exam(s) XR SHOULDER LT COMPLETE 2+V EXAM: XR SHOULDER LT COMPLETE 2+V CLINICAL HISTORY: LEFT SHOULDER PAIN. TECHNIQUE: 2D digital imaging was performed. COMPARISON: No exams were available for comparison FINDINGS: Two views No evidence of fracture or dislocation or abnormal soft tissue densities. The subacromial space is not diminished. There are no obvious degenerative changes in the glenohumeral joint. Mild degenerative changes are noted in the AC joint. No soft tissue calcifications. No concerning osseous lesions. Bone density normal. IMPRESSION: No significant radiographic findings on these two views of the left shoulder. DATA REPOSITORY: RADIATION DOSE DELIVERED:
== END 2025-07-27 11:32 | disposition home or self-care (01) ==
LOC: DIORS 11:31
PROVIDERS: PCP Family Medicine; Visit Provider Physician Assistant
DX: M25.512 Pain in left shoulder (principal)
CPT/HCPCS: 73030

== ENCOUNTER → 2025-08-02 09:45 | Outpatient (CLI) | payer OTHER, SELFPAY ==
--- NOTE | 2025-08-02 08:15 | DI.MRI_ITS ---
Exam(s) MR UPPER JOINT LT WO EXAM: MR UPPER JOINT LT WO CLINICAL HISTORY: ? ROTATOR CUFF TEAR S49.92XA LEFT SHOULDER INJURY. TECHNIQUE: Multiplanar multisequence MRI was performed. COMPARISON: None. FINDINGS: BONES: There is no fracture or contusion pattern. JOINTS:The acromioclavicular joint shows mild degenerative changes with mild inferior spurring. There is mild spurring at the the tip of the acromion. The glenohumeral joint is normal. TENDONS: Supraspinatus: Unremarkable. Infraspinatus: Unremarkable. Subscapularis: Mild edema and thickening at the superior portion. Teres Minor: Unremarkable. Biceps and Allison: Unremarkable. MUSCLES: Unremarkable. GLENOID LABRUM: Unremarkable on this noncontrast examination. SOFT TISSUES: Unremarkable. BURSAE: Subacromial and subdeltoid bursae shows minimal fluid.. IMPRESSION: Tendinosis of the superior subscapularis tendon. DATA REPOSITORY:
== END ==
LOC: DI 09:45
PROVIDERS: PCP Family Medicine; Visit Provider Student in an Organized Health Care Education/Training Program
DX: S49.92XA Unspecified injury of left shoulder and upper arm, initial encounter (principal); M67.814 Other specified disorders of tendon, left shoulder; X58.XXXA Exposure to other specified factors, initial encounter
CPT/HCPCS: 73221